=== PATIENT | male | born 1945 | race Caucasian/White ===

== ENCOUNTER 2024-02-20 01:49 | Inpatient (IN) ==
--- NOTE | 2024-02-20 01:55 | Emergency Department Note ---
Impression & Plan Dehydration, Elevated troponin, Influenza ED Provider Note CHIEF COMPLAINT: Weakness, sore throat HISTORY OF PRESENT ILLNESS: This 78-year-old patient presents to the emergency department via EMS from home after calling for a lift assist. The patient reports he slid out of bed approximately 2 days ago, and has been laying on the floor since. He reports he has had no water, food, or medications in that timeframe. He states he feels weak in his upper and lower extremities. He reports no recent illness, abdominal pain, nausea, vomiting, dysuria, or constipation. He does state he has had some slight diarrhea recently. He states he also has a sore throat. The patient arrived with a soaked depends, tachycardia. He is also febrile upon arrival. REVIEW OF SYSTEMS: A review of systems was performed with positives and pertinent negatives listed in the history of present illness. All other systems were reviewed and are negative. ALLERGIES: See below MEDICATIONS: See below PMH: See below PHYSICAL EXAM: VITALS: Vitals are noted on the nurse's note and reviewed by myself. Vital signs stable. GENERAL: 78-year-old male, in no acute distress, nondiaphoretic, well-developed well-nourished. SKIN: Areas of ecchymosis, on the upper and lower extremities. Bilateral shoulder with erythematous rash noted. No cellulitis. HEAD: Normocephalic atraumatic. No edema noted. EARS: External auditory canals clear, tympanic membranes pearly thayer without erythema or effusion bilaterally. EYES: Pupils equal round and reactive to light and accommodation. Conjunctivae without injection, sclerae without icterus. Extraocular movements intact. NOSE: Patent, turbinates without inflammation or discharge. No sinus tenderness. No septal hematoma. MOUTH: Mucous membranes dry. No tonsillar hypertrophy. Pharynx without erythema or exudate. Uvula midline. Airway patent. Tongue does not deviate. NECK: Supple without nuchal rigidity. No lymphadenopathy. Cervical spine is nontender. No JVD. HEART: Tachycardia with regular rhythm without murmurs gallops or rubs. LUNGS: Diminished upper lobes with coarse lung sounds in bases bilaterally. ABDOMEN: Positive bowel sounds x 4. Soft, nontender, without masses or organomegaly. Baxter sign negative. No guarding or rebound tenderness. MUSCULOSKELETAL: Muscle atrophy in all extremities, erythema, or edema noted. Full range of motion without joint tenderness in all extremities. No tenderness to palpation. Normal gait. Strength 5/5 throughout. NEURO: Patient was alert and oriented to person place and time. No focal neurological deficits. MEDICAL DECISION MAKING: Patient is a 78-year-old male who arrives from home via EMS for evaluation of the above-stated complaint. Upon initial evaluation, the patient is tachycardic and febrile. A sepsis workup was obtained. Fluid resuscitation was administered. CBC shows no leukocytosis, with a stable hemoglobin and hematocrit. CMP shows hypokalemia 3.2, which was replaced with 40 mEq p.o. potassium, elevated anion gap at 18, elevated CK of 549, lactate 2.2, and troponin 68.2. EKG shows NSR at a rate of 92bpm with no ST elevation, or concerning signs of ischemia. No previous for comparison. Urinalysis is negative for infection. The patient was administered a second liter bolus of saline for hydration with resolution of tachycardia to 78 bpm. Reflex lactate 1.1. Repeat troponin 84.3. Patient is positive for influenza. Chest x-ray shows peribronchial cuffing, with no other significant findings. CT imaging of the head was obtained due to the patient's poor of sliding out of bed which shows pansinusitis with chronic mastoiditis, as well as possible inflammatory or infectious process. Pt has no edema or concerning signs of trauma to this region. Case management was contacted for admission to the hospitalist service for elevated troponin. The patient was accepted by Dr. Castro for admission. Please refer to his documentation for further patient workup and care. DIFFERENTIAL DIAGNOSIS: Infection, dehydration, metabolic abnormality, hypo/hyperglycemia, electrolyte disturbance, anemia, hypoxia, cardiac sources, intracerebral event, toxicologic, neurologic, as well as other pathologies. 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 Patient was placed on the window shade installer. Patient was noted to be in NSR at an initial rate of 93 bpm. The patient's case was discussed with Dr. Gipson, who agreed with my evaluation and treatment plan. The chart was completed utilizing [employer] Speech voice recognition software. Grammatical errors, random word insertions, pronoun errors, and incomplete sentences are an occasional consequence of this system due to software limitations, ambient noise, and hardware issues. Any formal questions or concerns about the content, text, or information contained within the body of this dictation should be directly addressed to the physician for clarification. Past Med/Surg History Problem List (Updated 02/20/24 @ 05:57 by JACKY Merida) Influenza (Acute) Elevated troponin (Acute) Dehydration (Acute) Social History Smoking Status: Current every day smoker Feels Safe at Home: Yes Results & Data (ED) Vital Signs Vital Signs - 24 hr 02/20/24 01:58 02/20/24 02:03 02/20/24 02:03 Temperature 37.6 C H Temperature Source Oral Pulse Rate 93 H 93 H Pulse Rate [Apical] Pulse Rate from SpO2 Sensor Pulse Rhythm Regular Pulse Rhythm [Apical] Pulse Strength Normal Pulse Strength [Apical] Respiratory Rate 18 Respiratory Effort / Characteristics Non-Labored Spontaneous Respiratory Depth Normal Respiratory Pattern Regular Blood Pressure 146/85 H Blood Pressure [Right Arm] Blood Pressure Mean 105 Blood Pressure Mean [Right Arm] Blood Pressure Position Semi-fowlers Blood Pressure Position [Right Arm] Pulse Oximetry 98 98 Oxygen Delivery Method Room Air Room Air Sepsis Recent Fever Within 48 Hours No Sepsis New/Unexplained Change in Mental Status No Sepsis Action Taken by Nursing No Action Required 02/20/24 02:03 02/20/24 02:03 02/20/24 02:09 Temperature 37.6 C H Temperature Source Oral Pulse Rate 93 H 95 H Pulse Rate [Apical] 88 Pulse Rate from SpO2 Sensor 96 H Pulse Rhythm Regular Pulse Rhythm [Apical] Regular Pulse Strength Pulse Strength [Apical] Normal Respiratory Rate 18 18 23 Respiratory Effort / Characteristics Non-Labored Spontaneous Respiratory Depth Normal Respiratory Pattern Regular Blood Pressure 183/102 H Blood Pressure [Right Arm] 127/86 Blood Pressure Mean 129 Blood Pressure Mean [Right Arm] 99 Blood Pressure Position Blood Pressure Position [Right Arm] Semi-fowlers Pulse Oximetry 98 98 96 Oxygen Delivery Method Room Air Room Air Room Air Sepsis Recent Fever Within 48 Hours Sepsis New/Unexplained Change in Mental Status Sepsis Action Taken by Nursing 02/20/24 02:15 02/20/24 02:30 02/20/24 03:06 Temperature Temperature Source Pulse Rate 96 H 91 H 90 Pulse Rate [Apical] Pulse Rate from SpO2 Sensor 94 H 92 H 86 Pulse Rhythm Pulse Rhythm [Apical] Pulse Strength Pulse Strength [Apical] Respiratory Rate 24 18 24 Respiratory Effort / Characteristics Respiratory Depth Respiratory Pattern Blood Pressure Blood Pressure [Right Arm] Blood Pressure Mean Blood Pressure Mean [Right Arm] Blood Pressure Position Blood Pressure Position [Right Arm] Pulse Oximetry 95 94 96 Oxygen Delivery Method Room Air Room Air Room Air Sepsis Recent Fever Within 48 Hours Sepsis New/Unexplained Change in Mental Status Sepsis Action Taken by Nursing 02/20/24 03:18 02/20/24 03:26 02/20/24 03:49 Temperature Temperature Source Pulse Rate 90 84 90 Pulse Rate [Apical] Pulse Rate from SpO2 Sensor 90 Pulse Rhythm Pulse Rhythm [Apical] Pulse Strength Pulse Strength [Apical] Respiratory Rate 17 26 H 18 Respiratory Effort / Characteristics Respiratory Depth Respiratory Pattern Blood Pressure 165/88 H 139/76 Blood Pressure [Right Arm] Blood Pressure Mean 114 111 Blood Pressure Mean [Right Arm] Blood Pressure Position Blood Pressure Position [Right Arm] Pulse Oximetry 99 96 99 Oxygen Delivery Method Room Air Room Air Room Air Sepsis Recent Fever Within 48 Hours Sepsis New/Unexplained Change in Mental Status Sepsis Action Taken by Nursing 02/20/24 04:00 02/20/24 04:00 02/20/24 04:15 Temperature Temperature Source Pulse Rate 95 H 76 Pulse Rate [Apical] 77 Pulse Rate from SpO2 Sensor 84 Pulse Rhythm Pulse Rhythm [Apical] Pulse Strength Pulse Strength [Apical] Respiratory Rate 22 20 22 Respiratory Effort / Characteristics Non-Labored Spontaneous Respiratory Depth Normal Respiratory Pattern Regular Blood Pressure 154/78 H 148/71 H Blood Pressure [Right Arm] 154/78 H Blood Pressure Mean 103 108 Blood Pressure Mean [Right Arm] 103 Blood Pressure Position Blood Pressure Position [Right Arm] Pulse Oximetry 96 98 96 Oxygen Delivery Method Room Air Room Air Room Air Sepsis Recent Fever Within 48 Hours Sepsis New/Unexplained Change in Mental Status Sepsis Action Taken by Nursing 02/20/24 04:15 02/20/24 04:30 02/20/24 04:45 Temperature Temperature Source Pulse Rate 74 Pulse Rate [Apical] 79 Pulse Rate from SpO2 Sensor 73 Pulse Rhythm Pulse Rhythm [Apical] Pulse Strength Pulse Strength [Apical] Respiratory Rate 21 20 Respiratory Effort / Characteristics Non-Labored Spontaneous Respiratory Depth Normal Respiratory Pattern Regular Blood Pressure 148/71 H 141/72 H Blood Pressure [Right Arm] 131/71 Blood Pressure Mean 108 95 Blood Pressure Mean [Right Arm] 91 Blood Pressure Position Blood Pressure Position [Right Arm] Pulse Oximetry 95 98 Oxygen Delivery Method Room Air Room Air Sepsis Recent Fever Within 48 Hours Sepsis New/Unexplained Change in Mental Status Sepsis Action Taken by Nursing 02/20/24 04:45 Temperature Temperature Source Pulse Rate 78 Pulse Rate [Apical] Pulse Rate from SpO2 Sensor Pulse Rhythm Pulse Rhythm [Apical] Pulse Strength Pulse Strength [Apical] Respiratory Rate 18 Respiratory Effort / Characteristics Respiratory Depth Respiratory Pattern Blood Pressure 131/71 Blood Pressure [Right Arm] Blood Pressure Mean 103 Blood Pressure Mean [Right Arm] Blood Pressure Position Blood Pressure Position [Right Arm] Pulse Oximetry 96 Oxygen Delivery Method Room Air Sepsis Recent Fever Within 48 Hours Sepsis New/Unexplained Change in Mental Status Sepsis Action Taken by [place] Medications Current Medication List: was personally reviewed by me Laboratory Data Attestation: I reviewed the patient's lab results. 02/20/24 02:12 02/20/24 02:12 Lab Results 02/20/24 02/20/24 02/20/24 Range/Units 02:08 02:12 02:21 WBC 8.18 (4.8-10.8) K/ul RBC 5.12 (4.70-6.10) M/uL Hgb 14.9 (14.0-18.0) g/dl Hct 44.4 (42.0-52.0) % MCV 86.7 (80.0-100.0) fL MCH 29.1 (25.0-34.0) pg MCHC 33.6 (32.0-36.0) g/dL RDW Std Deviation 41.7 (36.4-46.3) fL RDW Coeff of Neftali 13.2 (11.5-14.5) % Plt Count 133 (130-400) K/uL MPV 9.1 L (9.4-12.4) fL Immature Gran % (Auto) 0.4 % Neut % (Auto) 83.6 % Lymph % (Auto) 8.6 % [place] % (Auto) 7.3 % Eos % (Auto) 0.0 % Baso % (Auto) 0.1 % Neut # (Auto) 6.84 H (1.40-6.50) K/uL Lymph # (Auto) 0.70 L (1.20-3.40) K/uL [place] # (Auto) 0.60 H (0.11-0.59) K/uL Eos # (Auto) 0.00 (0.00-0.50) K/uL Baso # (Auto) 0.01 (0.00-0.20) K/uL Immature Gran # (Auto) 0.03 (0.01-0.20) K/uL Sodium 136 (136-145) mmol/L Potassium 3.2 L (3.5-5.1) mmol/L Chloride 97 L (98-107) mmol/L Carbon Dioxide 21 (21-32) mmol/L Anion Gap 18 H (3-11) BUN 20 (6-23) mg/dl Creatinine 0.94 (0.6-1.4) mg/dl Est Cr Clr Drug Dosing 54.1 ml/min eGFR 83.49 BUN/Creatinine Ratio 21.3 H (10-20) Glucose 93 (70-99(Fasting)) mg/dl Lactate 2.2 H* (0.4-2.0) mmol/L Calcium 8.9 (8.6-10.3) mg/dl Magnesium 1.8 (1.7-2.4) mg/dl Total Bilirubin 0.5 (0.2-1.0) mg/dl Direct Bilirubin 0.2 (0-0.2) mg/dl AST 48 H (13-39) U/L ALT 20 (7-52) U/L Alkaline Phosphatase 68 (34-104) U/L Total Creatine Kinase 549 H (30-223) U/L Troponin I High Sens 68.2 H* (0-20) pg/ml Total Protein 8.2 (6.0-8.3) gm/dl Albumin 3.7 (3.4-5.0) gm/dl Procalcitonin 0.10 (0-0.5) ng/ml Urine Color Yellow Urine Appearance Clear (Clear) Urine pH 5.0 (4.5-7.5) Ur Specific [place] 1.022 (1.000-1.030) Urine Protein 1+ H (Negative) Urine Glucose (UA) Negative (Negative) Urine Ketones 2+ H (Negative) Urine Blood Negative (Negative) Urine Nitrite Negative (Negative) Urine Bilirubin Negative (Negative) Urine Urobilinogen Negative (Negative) Ur Leukocyte Esterase Negative (Negative) Urine WBC (Auto) 0-5 (0-5) /hpf Urine RBC (Auto) 0-2 (0-2) /hpf U Hyaline Cast (Auto) 6-10 H (0-2) /lpf U Epithel Cells (Auto) 0-2 (0-2) /hpf Urine Bacteria (Auto) None Seen (None Seen) Adenovirus (PCR) Not Detected (NotDetected) B. pertussis DNA (PCR) Not Detected (NotDetected) B.parapertussis DNA PCR Not Detected (NotDetected) C. pneumoniae DNA (PCR) Not Detected (NotDetected) Coronavirus OC43 (PCR) Not Detected (NotDetected) Coronavirus HKU1 (PCR) Not Detected (NotDetected) Coronavirus 229E (PCR) Not Detected (NotDetected) SARS-CoV-2 (PCR) Not Detected (NotDetected) Coronavirus NL63 (PCR) Not Detected (NotDetected) Human Metapneumovir PCR Not Detected (NotDetected) Influenza A (H3) PCR DETECTED A (NotDetected) Influenza Type B (PCR) Not Detected (NotDetected) M. pneumoniae (PCR) Not Detected (NotDetected) Parainfluenza 1 (PCR) Not Detected (NotDetected) Parainfluenza 2 (PCR) Not Detected (NotDetected) Parainfluenza 3 (PCR) Not Detected (NotDetected) Parainfluenza 4 (PCR) Not Detected (NotDetected) RSV (PCR) Not Detected (NotDetected) Entero/Rhino (PCR) Not Detected (NotDetected) Group A Strep (PCR) NOT DETECTED (NotDetected) 02/20/24 Range/Units 04:17 WBC (4.8-10.8) K/ul RBC (4.70-6.10) M/uL Hgb (14.0-18.0) g/dl Hct (42.0-52.0) % MCV (80.0-100.0) fL MCH (25.0-34.0) pg MCHC (32.0-36.0) g/dL RDW Std Deviation (36.4-46.3) fL RDW Coeff of Neftali (11.5-14.5) % Plt Count (130-400) K/uL MPV (9.4-12.4) fL Immature Gran % (Auto) % Neut % (Auto) % Lymph % (Auto) % [place] % (Auto) % Eos % (Auto) % Baso % (Auto) % Neut # (Auto) (1.40-6.50) K/uL Lymph # (Auto) (1.20-3.40) K/uL [place] # (Auto) (0.11-0.59) K/uL Eos # (Auto) (0.00-0.50) K/uL Baso # (Auto) (0.00-0.20) K/uL Immature Gran # (Auto) (0.01-0.20) K/uL Sodium (136-145) mmol/L Potassium (3.5-5.1) mmol/L Chloride (98-107) mmol/L Carbon Dioxide (21-32) mmol/L Anion Gap (3-11) BUN (6-23) mg/dl Creatinine (0.6-1.4) mg/dl Est Cr Clr Drug Dosing ml/min eGFR BUN/Creatinine Ratio (10-20) Glucose (70-99(Fasting)) mg/dl Lactate 1.1 (0.4-2.0) mmol/L Calcium (8.6-10.3) mg/dl Magnesium (1.7-2.4) mg/dl Total Bilirubin (0.2-1.0) mg/dl Direct Bilirubin (0-0.2) mg/dl AST (13-39) U/L ALT (7-52) U/L Alkaline Phosphatase (34-104) U/L Total Creatine Kinase (30-223) U/L Troponin I High Sens 84.3 H* D (0-20) pg/ml Total Protein (6.0-8.3) gm/dl Albumin (3.4-5.0) gm/dl Procalcitonin (0-0.5) ng/ml Urine Color Urine Appearance (Clear) Urine pH (4.5-7.5) Ur Specific [place] (1.000-1.030) Urine Protein (Negative) Urine Glucose (UA) (Negative) Urine Ketones (Negative) Urine Blood (Negative) Urine Nitrite (Negative) Urine Bilirubin (Negative) Urine Urobilinogen (Negative) Ur Leukocyte Esterase (Negative) Urine WBC (Auto) (0-5) /hpf Urine RBC (Auto) (0-2) /hpf U Hyaline Cast (Auto) (0-2) /lpf U Epithel Cells (Auto) (0-2) /hpf Urine Bacteria (Auto) (None Seen) Adenovirus (PCR) (NotDetected) B. pertussis DNA (PCR) (NotDetected) B.parapertussis DNA PCR (NotDetected) C. pneumoniae DNA (PCR) (NotDetected) Coronavirus OC43 (PCR) (NotDetected) Coronavirus HKU1 (PCR) (NotDetected) Coronavirus 229E (PCR) (NotDetected) SARS-CoV-2 (PCR) (NotDetected) Coronavirus NL63 (PCR) (NotDetected) Human Metapneumovir PCR (NotDetected) Influenza A (H3) PCR (NotDetected) Influenza Type B (PCR) (NotDetected) M. pneumoniae (PCR) (NotDetected) Parainfluenza 1 (PCR) (NotDetected) Parainfluenza 2 (PCR) (NotDetected) Parainfluenza 3 (PCR) (NotDetected) Parainfluenza 4 (PCR) (NotDetected) RSV (PCR) (NotDetected) Entero/Rhino (PCR) (NotDetected) Group A Strep (PCR) (NotDetected) Administered Medications Discontinued Medications Acetaminophen (Acetaminophen 500 Mg Tab) 1,000 mg PO NOW STA Stop: 02/20/24 02:40 Last Admin: 02/20/24 03:26 Dose: 1,000 mg Documented By: PHILLIP Sodium Chloride (Nss) 1,000 mls @ 999 mls/hr IV .Q1H1M ESTEFANI Stop: 02/20/24 03:15 Last Infusion: 02/20/24 03:27 Dose: Infused Documented By: Admin: 02/20/24 02:25 Dose: 999 mls/hr Documented By: NATY Sodium Chloride (Nss) 1,000 mls @ 999 mls/hr IV .Q1H1M ONE Stop: 02/20/24 03:48 Last Infusion: 02/20/24 04:30 Dose: Infused Documented By: Admin: 02/20/24 03:30 Dose: 999 mls/hr Documented By: PHILLIP Sodium Chloride (Nss) 800 mls @ 999 mls/hr IV .Q49M ONE Stop: 02/20/24 05:11 Last Admin: 02/20/24 04:26 Dose: Not Given Documented By: PHILLIP Potassium Chloride (Potassium Chloride Crtab 20 Meq Tabcr) 40 meq PO NOW STA Stop: 02/20/24 02:54 Last Admin: 02/20/24 03:27 Dose: 40 meq Documented By: PHILLIP Imaging Data Attestation: I personally reviewed and interpreted this imaging study as follows: Radiologist's Impression: Chest X-Ray 02/20/24 02:02 EXAM: XR chest 1V portable CLINICAL HISTORY: SEPSIS JMF TECHNIQUE: An X-ray image of the chest is obtained in AP projection. COMPARISON: No prior studies are available for comparison. FINDINGS: Pulmonary Parenchyma: Lungs show prominent perihilar bronchovascular markings with peribronchial cuffing. No evidence of consolidation, collapse, or focal opacities. No pulmonary nodules are identified. No evidence of pleural effusion or pleural thickening. Heart and Mediastinum: Heart size and shape are normal. No mediastinal widening or masses. No hilar or mediastinal lymphadenopathy. Bony Thorax: Bony thorax appears intact without fractures or deformities. Soft Tissues: Soft tissues overlying the chest wall are unremarkable. IMPRESSION: Bilateral perihilar prominent bronchovascular markings with peribronchial cuffing are non-specific findings; clinical correlation is advised. Electronically signed by Isaac Farrell 02-20-2024 03:[address] 02/20/24 02:06 EXAM: CT head/brain wo con CLINICAL HISTORY: Weakness, slid out of bed onto the floor, and laid on the floor for two days, pt states he did not hit his head. TECHNIQUE: An axial non-contrast CT scan of the brain was performed from the skull base to the high parietal region. One of the following dose reduction techniques was utilized for this exam: Automated exposure control, adjustment of the mA and/or kV according to patient size, and use of iterative reconstruction. DLP: 1674 mGy-cm, CTDI 103.2 mGy. COMPARISON: None. FINDINGS: Brain Parenchyma: There are a few tiny ill-defined [id number] areas noted in the subcortical and deep white matter bilaterally, suggestive of microvascular ischemic changes. Normal attenuation of the cerebral hemispheres, cerebellum, and brainstem. No evidence of acute infarct, hemorrhage, or mass effect. Ventricular System: The ventricular system, cortical sulci, and basal cisterns are prominent and consistent with senile changes. No evidence of subarachnoid hemorrhage or extra-axial fluid collections. Cerebellum and Brainstem: Normal size and signal. No masses, lesions, or areas of abnormal signal. Orbits: Normal appearance of the globes, optic nerves, and extraocular muscles. No evidence of orbital masses. Sinuses: Mild mucosal thickening in the frontal and ethmoid sinuses. Right maxillary mucosal sinus cysts. Patchy opacification of the mastoid air cells. Skull: No evidence of definite acute fracture. Additional: A fluid collection is seen along the lateral aspect of the right masseter muscle, measuring 46 x 8 mm in the right hydro station supervisor space continuing posteriorly with the parotid space. Mild surrounding fat stranding is also seen. Imaging appearances are suggestive of an ongoing infective/inflammatory process. IMPRESSION: 1. No evidence of any acute intracranial event. 2. Age-related involutional and microvascular ischemic changes. 3. Soft tissue thickening with stranding and mild fluid are seen in the right masseter and right parotid space. Need clinical correlation and correlate with impact of trauma. 4. Further evaluation with a contrast-enhanced MRI brain can be considered if clinically indicated. 5. 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
[2024-02-20] MEDS: SODIUM CHLORIDE 0.9% 1,000 ML IV SCH ×2 (02:25→13:08)
[2024-02-20 02:45] LABS: Albumin Level 3.7 gm/dl (3.4-5.0); BUN Creatinine Ratio 21.3 (10-20); Bilirubin Direct 0.2 mg/dl (0-0.2); Bilirubin,Total 0.5 mg/dl (0.2-1.0); Calcium 8.9 mg/dl (8.6-10.3); Creatinine Clr Calc Pharmacy 54.1 ml/min; Magnesium 1.8 mg/dl (1.7-2.4); Potassium 3.2 mmol/L (3.5-5.1); Total Protein 8.2 gm/dl (6.0-8.3)
[2024-02-20 02:51] LABS: Basophils # (auto) 0.01 K/uL (0.00-0.20); Basophils % (auto) 0.1 %; Hematocrit (blood only) 44.4 % (42.0-52.0); Hemoglobin 14.9 g/dl (14.0-18.0); Immature Granulocytes # (auto) 0.03 K/uL (0.01-0.20); Immature Granulocytes % (auto) 0.4 %; Lymphocytes % (auto) 8.6 %; Mean Corpuscular Hemoglobin 29.1 pg (25.0-34.0); Mean Corpuscular Hgb Conc 33.6 g/dL (32.0-36.0); Mean Corpuscular Volume 86.7 fL (80.0-100.0); Mean Platelet Volume 9.1 fL (9.4-12.4); Monocytes % (auto) 7.3 %; Neutrophils # (auto) 6.84 K/uL (1.40-6.50); Neutrophils % (auto) 83.6 %; Platelet Count 133 K/uL (130-400); RDW Coefficient of Variation 13.2 % (11.5-14.5); RDW Standard Deviation 41.7 fL (36.4-46.3); Red Blood Count 5.12 M/uL (4.70-6.10); White Blood Count 8.18 K/ul (4.8-10.8)
[2024-02-20 02:52] LABS: Troponin I High Sensitivity 68.2 pg/ml (0-20)
[2024-02-20 03:00] LABS: Appearance Urine Clear (Clear); Bacteria Urine Automated None Seen (None Seen); Bilirubin Urine Negative (Negative); Blood Urine Negative (Negative); Color Urine Yellow; Epithelial Cell Urine Auto 0-2 /hpf (0-2); Glucose Urine UA Negative (Negative); Ketones Urine 2+ (Negative); Leukocyte Esterase Urine Negative (Negative); Nitrite Urine Negative (Negative); Protein Urine 1+ (Negative); RBC Urine Automated 0-2 /hpf (0-2); Specific Gravity Urine 1.022 (1.000-1.030); Urobilinogen Urine Negative (Negative); WBC Urine Automated 0-5 /hpf (0-5)
[2024-02-20] MEDS: ACETAMINOPHEN 500 MG TAB PO STA (03:26)
[2024-02-20] MEDS: POTASSIUM CHLORIDE CRTAB 20 MEQ TABCR PO STA (03:27)
[2024-02-20] MEDS: SODIUM CHLORIDE 0.9% 1,000 ML IV ONE (03:30)
--- NOTE | 2024-02-20 03:31 | XRay Report ---
EXAM: XR chest 1V portable CLINICAL HISTORY: SEPSIS JMF TECHNIQUE: An X-ray image of the chest is obtained in AP projection. COMPARISON: No prior studies are available for comparison. FINDINGS: Pulmonary Parenchyma: Lungs show prominent perihilar bronchovascular markings with peribronchial cuffing. No evidence of consolidation, collapse, or focal opacities. No pulmonary nodules are identified. No evidence of pleural effusion or pleural thickening. Heart and Mediastinum: Heart size and shape are normal. No mediastinal widening or masses. No hilar or mediastinal lymphadenopathy. Bony Thorax: Bony thorax appears intact without fractures or deformities. Soft Tissues: Soft tissues overlying the chest wall are unremarkable. IMPRESSION: Bilateral perihilar prominent bronchovascular markings with peribronchial cuffing are non-specific findings; clinical correlation is advised. Electronically signed by Isaac Farrell 02-20-2024 03:30 AM
[2024-02-20 03:32] LABS: Adenovirus PCR Not Detected (NotDetected); Bordetella parapertussis PCR Not Detected (NotDetected); Bordetella pertussis PCR Not Detected (NotDetected); Chlamydia pneumoniae PCR Not Detected (NotDetected); Coronavirus 229E PCR Not Detected (NotDetected); Coronavirus CoV-2 (COVID19)PCR Not Detected (NotDetected); Coronavirus HKU1 PCR Not Detected (NotDetected); Coronavirus NL63 PCR Not Detected (NotDetected); Coronavirus OC43PCR Not Detected (NotDetected); Human Metapneumovirus PCR Not Detected (NotDetected); Influenza A (H3) PCR DETECTED (NotDetected); Influenza B PCR Not Detected (NotDetected); Mycoplasma pneumoniae PCR Not Detected (NotDetected); Parainfluenza Virus 1 PCR Not Detected (NotDetected); Parainfluenza Virus 2 PCR Not Detected (NotDetected); Parainfluenza Virus 3 PCR Not Detected (NotDetected); Parainfluenza Virus 4 PCR Not Detected (NotDetected); Respiratory Syncytial VirusPCR Not Detected (NotDetected); Rhinovirus/Enterovirus PCR Not Detected (NotDetected)
[2024-02-20] MEDS: SODIUM CHLORIDE 0.9% 800 ML IV ONE (04:26)
--- NOTE | 2024-02-20 05:23 | CT Scan Report ---
EXAM: CT head/brain wo con CLINICAL HISTORY: Weakness, slid out of bed onto the floor, and laid on the floor for two days, pt states he did not hit his head. TECHNIQUE: An axial non-contrast CT scan of the brain was performed from the skull base to the high parietal region. One of the following dose reduction techniques was utilized for this exam: Automated exposure control, adjustment of the mA and/or kV according to patient size, and use of iterative reconstruction. DLP: 1674 mGy-cm, CTDI 103.2 mGy. COMPARISON: None. FINDINGS: Brain Parenchyma: There are a few tiny ill-defined [id number] areas noted in the subcortical and deep white matter bilaterally, suggestive of microvascular ischemic changes. Normal attenuation of the cerebral hemispheres, cerebellum, and brainstem. No evidence of acute infarct, hemorrhage, or mass effect. Ventricular System: The ventricular system, cortical sulci, and basal cisterns are prominent and consistent with senile changes. No evidence of subarachnoid hemorrhage or extra-axial fluid collections. Cerebellum and Brainstem: Normal size and signal. No masses, lesions, or areas of abnormal signal. Orbits: Normal appearance of the globes, optic nerves, and extraocular muscles. No evidence of orbital masses. Sinuses: Mild mucosal thickening in the frontal and ethmoid sinuses. Right maxillary mucosal sinus cysts. Patchy opacification of the mastoid air cells. Skull: No evidence of definite acute fracture. Additional: A fluid collection is seen along the lateral aspect of the right masseter muscle, measuring 46 x 8 mm in the right parachute packer space continuing posteriorly with the parotid space. Mild surrounding fat stranding is also seen. Imaging appearances are suggestive of an ongoing infective/inflammatory process. IMPRESSION: 1. No evidence of any acute intracranial event. 2. Age-related involutional and microvascular ischemic changes. 3. Soft tissue thickening with stranding and mild fluid are seen in the right masseter and right parotid space. Need clinical correlation and correlate with impact of trauma. 4. Further evaluation with a contrast-enhanced MRI brain can be considered if clinically indicated. 5. 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
--- NOTE | 2024-02-20 08:50 | History & Physical Report ---
Date of Service February 20, 2024 Assessment & Plan (1) Influenza: Plan: 78-year-old male unassigned Patient moved from [place] with past med history significant for hypertension, diabetes, depression, ongoing tobacco use, history of heavy alcohol use and no drinking since last 6 months as per patient, who lives alone at home comes in because of fall and found to have flu positive. Patient was feeling weak and fatigued. He slipped from the bed and fell down and he could not get up. He thinks he laid on the floor for 1-1/2-day. Finally was able to call 911 and was brought in here. Alert and oriented. Hard of hearing. Denies any headache. No runny nose or sore throat. Has chronic cough from smoking. Denies any fevers. Denies any chest pain or shortness of breath. No nausea. No abdominal pain. When he was laying on the floor was not able to take his medications and was also dehydrated. X-ray had some loose stools. Micturating okay. Currently hemodynamics are okay. In the ER received fluids, Tylenol and potassium supplement. Influenza Came with fall and weakness Started on Tamiflu IV fluids Droplet precautions Close monitor Elevated troponin Initial troponin 68 and repeat is 84 Denies any chest pain or shortness of breath Abnormal EKG. No old EKG to compare No cardiac history as per patient Will follow serial cardiac enzymes and echo Will consult cardiac for further recommendations History of hypertension Continue home metoprolol tartrate and triamterene/hydrochlorothiazide and potassium supplement. Will monitor Depression On Zoloft Diabetes Seems takes long-acting insulin 20 units nightly For now will place on insulin sliding scale and monitor Follow HbA1c levels Needs follow-up with PCP Disposition Med/telemetry Full code History of Present Illness Chief Complaint: Status post fall and flu positive Primary Care Provider: NO PCP 78-year-old male unassigned Patient moved from [place] with past med history significant for hypertension, diabetes, depression, ongoing tobacco use, history of heavy alcohol use and no drinking since last 6 months as per patient, who lives alone at home comes in because of fall and found to have flu positive. Patient was feeling weak and fatigued. He slipped from the bed and fell down and he could not get up. He thinks he laid on the floor for 1-1/2-day. Finally was able to call 911 and was brought in here. Alert and oriented. Hard of hearing. Denies any headache. No runny nose or sore throat. Has chronic cough from smoking. Denies any fevers. Denies any chest pain or shortness of breath. No nausea. No abdominal pain. When he was laying on the floor was not able to take his medications and was also dehydrated. X-ray had some loose stools. Micturating okay. Currently hemodynamics are okay. In the ER received fluids, Tylenol and potassium supplement. Past medical history. As mentioned above Past surgical history. Right big toe amputation. Social history. Smokes 3/4 pack a day for last 20 years. Used to drink heavily in the past last drink 6 months ago as per patient. Family history. Denies any family history. Home Medications Medication Instructions Recorded Confirmed Type insulin glargine 100 unit/mL (3 20 unit subcut UD 02/20/24 02/20/24 History mL) subcutaneous pen (Basaglar KwikPen U-100 Insulin) metoprolol tartrate 100 mg tablet 100 mg PO BID 02/20/24 02/20/24 History potassium chloride 20 mEq 20 meq PO BID 02/20/24 02/20/24 History tablet,extended release(part/cryst) sertraline 50 mg tablet 50 mg PO BID 02/20/24 02/20/24 History thiamine HCl (vitamin B1) 100 mg 100 mg PO DAILY 02/20/24 02/20/24 History tablet triamterene 75 1 tab PO DAILY 02/20/24 02/20/24 History mg-hydrochlorothiazide 50 mg tablet Past Med/Surg History Problem List (Updated 02/20/24 @ 05:57 by JACKY Merida) Influenza (Acute) Elevated troponin (Acute) Dehydration (Acute) Social History Smoking Status: Current every day smoker Feels Safe at Home: Yes Review of Systems Review of Systems: All systems reviewed & are unremarkable except as noted in HPI & below Physical Exam Physical Exam: General- Not in distress Head- atraumatic Eyes- PERRL. ENT- oropharynx clear Neck- supple, no JVD. Lungs- clear to auscultation no wheezing or crackles Heart- regular rhythm; no murmur, no gallop. Abdomen- normal bowel sounds, soft, nontender, no distension Extremities- no pretibial edema, no erythema seen Neuro- alert, oriented ; hard of hearing, PERRL, no facial palsy; no dysarthria; moves extremities Results & Data Results & Data Vital Signs (Past 12 Hours) Vital Signs Temp Pulse Pulse Resp BP BP Pulse Ox 02/20/24 08:00 72 18 134/69 97 02/20/24 06:15 70 22 127/75 94 02/20/24 06:00 77 20 140/75 94 02/20/24 05:55 72 02/20/24 04:45 78 18 131/71 96 02/20/24 04:45 79 20 131/71 98 02/20/24 04:30 74 21 141/72 H 95 02/20/24 04:15 148/71 H 02/20/24 04:15 76 22 148/71 H 96 02/20/24 04:00 95 H 20 154/78 H 98 02/20/24 04:00 77 22 154/78 H 96 02/20/24 03:49 90 18 139/76 99 02/20/24 03:26 84 26 H 165/88 H 96 02/20/24 03:18 90 17 99 02/20/24 03:06 90 24 96 02/20/24 02:30 91 H 18 94 02/20/24 02:15 96 H 24 95 02/20/24 02:09 95 H 23 183/102 H 96 02/20/24 02:03 93 H 18 98 02/20/24 02:03 37.6 C H 88 18 127/86 98 02/20/24 02:03 98 02/20/24 02:03 37.6 C H 93 H 18 146/85 H 98 02/20/24 01:58 93 H O2 Del Method 02/20/24 08:00 Room Air 02/20/24 06:15 Room Air 02/20/24 06:00 Room Air 02/20/24 05:55 02/20/24 04:45 Room Air 02/20/24 04:45 Room Air 02/20/24 04:30 Room Air 02/20/24 04:15 02/20/24 04:15 Room Air 02/20/24 04:00 Room Air 02/20/24 04:00 Room Air 02/20/24 03:49 Room Air 02/20/24 03:26 Room Air 02/20/24 03:18 Room Air 02/20/24 03:06 Room Air 02/20/24 02:30 Room Air 02/20/24 02:15 Room Air 02/20/24 02:09 Room Air 02/20/24 02:03 Room Air 02/20/24 02:03 Room Air 02/20/24 02:03 Room Air 02/20/24 02:03 Room Air 02/20/24 01:58 Diagnostic Findings Laboratory Results WBC 8.18 K/ul (4.8-10.8) 02/20/24 02:12 RBC 5.12 M/uL (4.70-6.10) 02/20/24 02:12 Hgb 14.9 g/dl (14.0-18.0) 02/20/24 02:12 Hct 44.4 % (42.0-52.0) 02/20/24 02:12 MCV 86.7 fL (80.0-100.0) 02/20/24 02:12 MCH 29.1 pg (25.0-34.0) 02/20/24 02:12 MCHC 33.6 g/dL (32.0-36.0) 02/20/24 02:12 RDW Std Deviation 41.7 fL (36.4-46.3) 02/20/24 02:12 RDW Coeff of Neftali 13.2 % (11.5-14.5) 02/20/24 02:12 Plt Count 133 K/uL (130-400) 02/20/24 02:12 MPV 9.1 fL (9.4-12.4) L 02/20/24 02:12 Immature Gran % (Auto) 0.4 % 02/20/24 02:12 Neut % (Auto) 83.6 % 02/20/24 02:12 Lymph % (Auto) 8.6 % 02/20/24 02:12 [place] % (Auto) 7.3 % 02/20/24 02:12 Eos % (Auto) 0.0 % 02/20/24 02:12 Baso % (Auto) 0.1 % 02/20/24 02:12 Neut # (Auto) 6.84 K/uL (1.40-6.50) H 02/20/24 02:12 Lymph # (Auto) 0.70 K/uL (1.20-3.40) L 02/20/24 02:12 [place] # (Auto) 0.60 K/uL (0.11-0.59) H 02/20/24 02:12 Eos # (Auto) 0.00 K/uL (0.00-0.50) 02/20/24 02:12 Baso # (Auto) 0.01 K/uL (0.00-0.20) 02/20/24 02:12 Immature Gran # (Auto) 0.03 K/uL (0.01-0.20) 02/20/24 02:12 Sodium 136 mmol/L (136-145) 02/20/24 02:12 Potassium 3.2 mmol/L (3.5-5.1) L 02/20/24 02:12 Chloride 97 mmol/L (98-107) L 02/20/24 02:12 Carbon Dioxide 21 mmol/L (21-32) 02/20/24 02:12 Anion Gap 18 (3-11) H 02/20/24 02:12 BUN 20 mg/dl (6-23) 02/20/24 02:12 Creatinine 0.94 mg/dl (0.6-1.4) 02/20/24 02:12 Est Cr Clr Drug Dosing 54.1 ml/min 02/20/24 02:12 eGFR 83.49 02/20/24 02:12 BUN/Creatinine Ratio 21.3 (10-20) H 02/20/24 02:12 Glucose 93 mg/dl (70-99(Fasting)) 02/20/24 02:12 Lactate 1.1 mmol/L (0.4-2.0) 02/20/24 04:17 Calcium 8.9 mg/dl (8.6-10.3) 02/20/24 02:12 Magnesium 1.8 mg/dl (1.7-2.4) 02/20/24 02:12 Total Bilirubin 0.5 mg/dl (0.2-1.0) 02/20/24 02:12 Direct Bilirubin 0.2 mg/dl (0-0.2) 02/20/24 02:12 AST 48 U/L (13-39) H 02/20/24 02:12 ALT 20 U/L (7-52) 02/20/24 02:12 Alkaline Phosphatase 68 U/L (34-104) 02/20/24 02:12 Total Creatine Kinase 549 U/L (30-223) H 02/20/24 02:12 Troponin I High Sens 84.3 pg/ml (0-20) H* D 02/20/24 04:17 Total Protein 8.2 gm/dl (6.0-8.3) 02/20/24 02:12 Albumin 3.7 gm/dl (3.4-5.0) 02/20/24 02:12 Procalcitonin 0.10 ng/ml (0-0.5) 02/20/24 02:12 Urine Color Yellow 02/20/24 02:21 Urine Appearance Clear (Clear) 02/20/24 02:21 Urine pH 5.0 (4.5-7.5) 02/20/24 02:21 Ur Specific [place] 1.022 (1.000-1.030) 02/20/24 02:21 Urine Protein 1+ (Negative) H 02/20/24 02:21 Urine Glucose (UA) Negative (Negative) 02/20/24 02:21 Urine Ketones 2+ (Negative) H 02/20/24 02:21 Urine Blood Negative (Negative) 02/20/24 02:21 Urine Nitrite Negative (Negative) 02/20/24 02:21 Urine Bilirubin Negative (Negative) 02/20/24 02:21 Urine Urobilinogen Negative (Negative) 02/20/24 02:21 Ur Leukocyte Esterase Negative (Negative) 02/20/24 02:21 Urine WBC (Auto) 0-5 /hpf (0-5) 02/20/24 02:21 Urine RBC (Auto) 0-2 /hpf (0-2) 02/20/24 02:21 U Hyaline Cast (Auto) 6-10 /lpf (0-2) H 02/20/24 02:21 U Epithel Cells (Auto) 0-2 /hpf (0-2) 02/20/24 02:21 Urine Bacteria (Auto) None Seen (None Seen) 02/20/24 02:21 Adenovirus (PCR) Not Detected (NotDetected) 02/20/24 02:21 B. pertussis DNA (PCR) Not Detected (NotDetected) 02/20/24 02:21 B.parapertussis DNA PCR Not Detected (NotDetected) 02/20/24 02:21 C. pneumoniae DNA (PCR) Not Detected (NotDetected) 02/20/24 02:21 Coronavirus OC43 (PCR) Not Detected (NotDetected) 02/20/24 02:21 Coronavirus HKU1 (PCR) Not Detected (NotDetected) 02/20/24 02:21 Coronavirus 229E (PCR) Not Detected (NotDetected) 02/20/24 02:21 SARS-CoV-2 (PCR) Not Detected (NotDetected) 02/20/24 02:21 Coronavirus NL63 (PCR) Not Detected (NotDetected) 02/20/24 02:21 Human Metapneumovir PCR Not Detected (NotDetected) 02/20/24 02:21 Influenza A (H3) PCR DETECTED (NotDetected) A 02/20/24 02:21 Influenza Type B (PCR) Not Detected (NotDetected) 02/20/24 02:21 M. pneumoniae (PCR) Not Detected (NotDetected) 02/20/24 02:21 Parainfluenza 1 (PCR) Not Detected (NotDetected) 02/20/24 02:21 Parainfluenza 2 (PCR) Not Detected (NotDetected) 02/20/24 02:21 Parainfluenza 3 (PCR) Not Detected (NotDetected) 02/20/24 02:21 Parainfluenza 4 (PCR) Not Detected (NotDetected) 02/20/24 02:21 RSV (PCR) Not Detected (NotDetected) 02/20/24 02:21 Entero/Rhino (PCR) Not Detected (NotDetected) 02/20/24 02:21 Group A Strep (PCR) NOT DETECTED (NotDetected) 02/20/24 02:21 Impressions Chest X-Ray 02/20/24 02:02 EXAM: XR chest 1V portable CLINICAL HISTORY: SEPSIS JMF TECHNIQUE: An X-ray image of the chest is obtained in AP projection. COMPARISON: No prior studies are available for comparison. FINDINGS: Pulmonary Parenchyma: Lungs show prominent perihilar bronchovascular markings with peribronchial cuffing. No evidence of consolidation, collapse, or focal opacities. No pulmonary nodules are identified. No evidence of pleural effusion or pleural thickening. Heart and Mediastinum: Heart size and shape are normal. No mediastinal widening or masses. No hilar or mediastinal lymphadenopathy. Bony Thorax: Bony thorax appears intact without fractures or deformities. Soft Tissues: Soft tissues overlying the chest wall are unremarkable. IMPRESSION: Bilateral perihilar prominent bronchovascular markings with peribronchial cuffing are non-specific findings; clinical correlation is advised. Electronically signed by Isaac Farrell 02-20-2024 03:[address] 02/20/24 02:06 EXAM: CT head/brain wo con CLINICAL HISTORY: Weakness, slid out of bed onto the floor, and laid on the floor for two days, pt states he did not hit his head. TECHNIQUE: An axial non-contrast CT scan of the brain was performed from the skull base to the high parietal region. One of the following dose reduction techniques was utilized for this exam: Automated exposure control, adjustment of the mA and/or kV according to patient size, and use of iterative reconstruction. DLP: 1674 mGy-cm, CTDI 103.2 mGy. COMPARISON: None. FINDINGS: Brain Parenchyma: There are a few tiny ill-defined [id number] areas noted in the subcortical and deep white matter bilaterally, suggestive of microvascular ischemic changes. Normal attenuation of the cerebral hemispheres, cerebellum, and brainstem. No evidence of acute infarct, hemorrhage, or mass effect. Ventricular System: The ventricular system, cortical sulci, and basal cisterns are prominent and consistent with senile changes. No evidence of subarachnoid hemorrhage or extra-axial fluid collections. Cerebellum and Brainstem: Normal size and signal. No masses, lesions, or areas of abnormal signal. Orbits: Normal appearance of the globes, optic nerves, and extraocular muscles. No evidence of orbital masses. Sinuses: Mild mucosal thickening in the frontal and ethmoid sinuses. Right maxillary mucosal sinus cysts. Patchy opacification of the mastoid air cells. Skull: No evidence of definite acute fracture. Additional: A fluid collection is seen along the lateral aspect of the right masseter muscle, measuring 46 x 8 mm in the right desk attendant space continuing posteriorly with the parotid space. Mild surrounding fat stranding is also seen. Imaging appearances are suggestive of an ongoing infective/inflammatory process. IMPRESSION: 1. No evidence of any acute intracranial event. 2. Age-related involutional and microvascular ischemic changes. 3. Soft tissue thickening with stranding and mild fluid are seen in the right masseter and right parotid space. Need clinical correlation and correlate with impact of trauma. 4. Further evaluation with a contrast-enhanced MRI brain can be considered if clinically indicated. 5. 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 Normal sinus rhythm. Cannot rule out inferior infarct. ST and T wave abnormality in lateral leads. QTc 492 Code Status & VTE Plan VTE Prophylaxis Plan VTE Prophylaxis will be ordered: Yes
--- NOTE | 2024-02-20 09:02 | Electrocardiogram Report ---
Test Reason : Blood Pressure : */* mmHG Vent. Rate : 92 BPM Atrial Rate : 92 BPM P-R Int : 140 ms QRS Dur : 114 ms QT Int : 390 ms P-R-T Axes : 61 66 -85 degrees QTcB Int : 482 ms Normal sinus rhythm Nondiagnostic inferior Q waves Diffuse Nonspecific ST and T wave abnormality Abnormal ECG No previous ECGs available Confirmed by Antoine Cardona ([id number]) on 02/20/2024 9:02:06 AM Referred By: REFERRED SELF Confirmed By: Antoine Cardona
--- NOTE | 2024-02-20 09:04 | Electrocardiogram Report ---
Test Reason : Blood Pressure : */* mmHG Vent. Rate : 70 BPM Atrial Rate : 70 BPM P-R Int : 142 ms QRS Dur : 118 ms QT Int : 456 ms P-R-T Axes : 57 77 -73 degrees QTcB Int : 492 ms Normal sinus rhythm Nondiagnostic inferior Q waves Diffuse Nonspecific ST and T wave abnormality Abnormal ECG When compared with ECG of 20-Feb-2024 01:59, No significant change was found Confirmed by Antoine Cardona ([id number]) on 02/20/2024 9:03:48 AM Referred By: REFERRED SELF Confirmed By: Antoine Cardona
[2024-02-20] MEDS ORDERED: GLUCOSE 40% GEL 15 GM TUBE PO PRN (10:33)
[2024-02-20] MEDS ORDERED: NITROGLYCERIN SL 0.4 MG/TAB TAB SL PRN (10:33)
[2024-02-20] MEDS ORDERED: GLUCAGON FOR INJ 1 MG VIAL SQ PRN (10:33)
[2024-02-20] MEDS ORDERED: LEVALBUTEROL TARTRATE 15 GM HFA.AER.AD INH PRN (10:33)
[2024-02-20] MEDS ORDERED: DEXTROSE 50% 50 ML SYRINGE IV PRN (10:33)
[2024-02-20] MEDS ORDERED: CARBOHYDRATES FOR HYPOGLYCEMIA PO PRN (10:33)
[2024-02-20] MEDS ORDERED: GLUCOSE 10 TAB/TUBE PO PRN (10:33)
[2024-02-20] MEDS ORDERED: OSELTAMIVIR PHOSPHATE 75 MG CAP PO STA (10:48)
[2024-02-20] MEDS: POTASSIUM CHLORIDE CRTAB 20 MEQ TABCR PO SCH (13:07)
[2024-02-20] MEDS: THIAMINE HCL 100 MG TAB PO SCH (13:08)
[2024-02-20] MEDS: SERTRALINE HCL 50 MG TABLET PO SCH (13:08)
[2024-02-20] MEDS: METOPROLOL TARTRATE 100 MG TAB PO SCH (13:08)
[2024-02-20] MEDS: INSULIN ASPART PER UNIT CHARGE SC SCH (13:36)
[2024-02-20] MEDS: TRIAMTERENE/HCTZ 37.5/25MG TAB PO SCH (13:38)
--- NOTE | 2024-02-20 14:24 | Cardiology Consultation ---
Date of Consultation February 20, 2024 Assessment & Plan (1) Influenza: (2) Weakness: (3) Elevated troponin: (4) Abnormal EKG: Plan Patient admitted with diffuse weakness, having been on the floor of his apartment for 1-2 days and unable to get up. He was diagnosed with influenza A. Head CT without acute process. Chronic microvascular changes noted. Found to be dehydrated and treated with IV fluids. Mildly elevated HS troponin noted at 69 - 84 - 65 No chest pain reported. EKG with mild diffuse ST wave abnormalities Echo with preserved LVEF, no wall motion abnormalities. Elevated CK also noted, likely in setting of muscle injury from weakness and laying on the floor. Mild case of rhabdo. IV fluids recommended. No prior cardiac history. Elevated troponin in setting of acute illness and demand ischemic event. Findings not indicative of ACS. He does have risk factors for ischemic heart disease. Recommend adding ASA 81 mg daily. Patient already taking outpatient beta florecita - Metoprolol tartrate 100 mg BID. Add statin once weakness and CK levels improve. Case discussed with Dr. Amaya I spent a total of 60 minutes on the date of service in preparation, delivery, and documentation of the care provided to this patient, excluding any time spent in the performance of separately billed services. Libby Erickson PA-C Department of Cardiology, [facility] This chart was completed in part utilizing Speech Voice Recognition Software. Grammatical errors, random word insertions, pronoun errors, and incomplete sentences are an occasional consequence of this system due to software limitations, ambient noise, and hardware issues. Any formal questions or concerns about the content, text, or information contained within the body of this dictation should be directly addressed to the provider for clarification. Supervising Physician Co-Signing Physician Notes I have personally performed a history and physical examination on the patient. I have reviewed the advance practitioner's documentation, and I agree with, and take responsibility for the plan of care. 78-year-old male presenting with diffuse weakness being found on the floor for approximately 48 hours. Diagnosed with influenza A. Abnormal ECG and mildly elevated high-sensitivity troponin noted. No old ECG available for comparison. Patient denies anginal symptoms specifically chest discomfort or heaviness. Troponin elevation secondary to acute illness/demand ischemia. Echocardiogram demonstrating normal LV systolic function and wall motion. Agree with addition of low-dose aspirin. Continue outpatient beta-florecita, Lopressor 100 mg twice daily. Consider addition of statin therapy when CK levels returned to normal and patient recovers from influenza/diffuse weakness. Thank you for allow me to participate in the care of your patient. Warren Amaya DO, [facility] History of Present Illness Reason for Consultation: elevated troponin; abnormal EKG Requesting Physician: Ryan Hospitalist Attending Physician: Dr. Amaya History of Present Illness Patient is a 78 year old male who presented to [facility] earlier today with diffuse weakness. Apparently he had attempted to get out of bed 1-2 days ago and slid off the bed and was not able to stand. He was reportedly on the floor for several days, unable to move or get up. He reports "my legs didn't work". Eventually he was able to reach his phone and called 911. Brought to ER for evaluation. Upon arrival, patient found to have mildly elevated troponin at 68 - 84 - 65. EKG demonstrated NSR with diffuse ST abnormality, possible LVH Elevated CK also noted at 549 Patient denies chest pain. He admits to SOB with activities for a few days and worsening cough. No sick contacts. Diagnosed with influenza A. Started on Tamiflu. Potassium was low and supplemented. Also treated with IV fluids as he was dehydrated. he had not taken his meds in 1-2 days as well. He denies history of cardiovascular issues. Recently moved to the area from [place]. 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 At time of evaluation, patient feeling ok. Notes ongoing weakness in his legs. Ongoing cough and wheeze. No chest pain or SOB at rest reported. No LE edema. Home Medications Medication Instructions Recorded Confirmed Type insulin glargine 100 unit/mL (3 20 unit subcut UD 02/20/24 02/20/24 History mL) subcutaneous pen (Basaglar AdanPen U-100 Insulin) metoprolol tartrate 100 mg tablet 100 mg PO BID 02/20/24 02/20/24 History potassium chloride 20 mEq 20 meq PO BID 02/20/24 02/20/24 History tablet,extended release(part/cryst) sertraline 50 mg tablet 50 mg PO BID 02/20/24 02/20/24 History thiamine HCl (vitamin B1) 100 mg 100 mg PO DAILY 02/20/24 02/20/24 History tablet triamterene 75 1 tab PO DAILY 02/20/24 02/20/24 History mg-hydrochlorothiazide 50 mg tablet Patient History Social History Smoking Status: Current every day smoker Feels Safe at Home: Yes Review of Systems Review of Systems: All systems reviewed & are unremarkable except as noted in HPI & below Physical Exam Constitutional: WD/WN, vitals as above + thin; no acute distress Neck: trachea midline, no thyromegaly Respiratory: no respiratory distress Auscultation: + diminished lung sounds and + wheezes Cardiovascular: Rate/Rhythm: regular rate and regular rhythm Heart Sounds: no murmur Vessels: no JVD Extremities: no edema Gastrointestinal (Abdomen): normal bowel sounds, soft, nontender, no hepatosplenomegaly Musculoskeletal: no cyanosis or clubbing, extremities motor strength 5/5 Results & Data Vital Signs (Past 12 Hours) Vital Signs Pulse Pulse Resp BP BP Pulse Ox O2 Del Method 02/20/24 12:26 58 L 20 118/60 97 Room Air 02/20/24 10:05 71 02/20/24 09:00 70 24 147/78 H 95 Room Air 02/20/24 08:45 76 24 130/103 H 96 02/20/24 08:15 68 24 135/75 93 02/20/24 08:15 135/75 02/20/24 08:00 72 18 134/69 97 Room Air 02/20/24 07:45 66 29 H 117/72 02/20/24 07:30 70 27 H 138/69 02/20/24 07:15 73 17 119/60 95 02/20/24 06:15 70 22 127/75 94 Room Air 02/20/24 06:00 77 20 140/75 94 Room Air 02/20/24 05:55 72 02/20/24 04:45 78 18 131/71 96 Room Air 02/20/24 04:45 79 20 131/71 98 Room Air 02/20/24 04:30 74 21 141/72 H 95 Room Air 02/20/24 04:15 148/71 H 02/20/24 04:15 76 22 148/71 H 96 Room Air 02/20/24 04:00 95 H 20 154/78 H 98 Room Air 02/20/24 04:00 77 22 154/78 H 96 Room Air 02/20/24 03:49 90 18 139/76 99 Room Air 02/20/24 03:26 84 26 H 165/88 H 96 Room Air 02/20/24 03:18 90 17 99 Room Air 02/20/24 03:06 90 24 96 Room Air 02/20/24 02:30 91 H 18 94 Room Air 02/20/24 02:15 96 H 24 95 Room Air Laboratory Results Cardiac Enzymes 02/20/24 02/20/24 02/20/24 Range/Units 02:12 04:17 11:42 AST 48 H (13-39) U/L Troponin I High Sens 68.2 H* 84.3 H* D 65.5 H* D (0-20) pg/ml CBC 02/20/24 Range/Units 02:12 WBC 8.18 (4.8-10.8) K/ul RBC 5.12 (4.70-6.10) M/uL Hgb 14.9 (14.0-18.0) g/dl Hct 44.4 (42.0-52.0) % Plt Count 133 (130-400) K/uL Neut # (Auto) 6.84 H (1.40-6.50) K/uL Lymph # (Auto) 0.70 L (1.20-3.40) K/uL Hinds # (Auto) 0.60 H (0.11-0.59) K/uL Eos # (Auto) 0.00 (0.00-0.50) K/uL Baso # (Auto) 0.01 (0.00-0.20) K/uL Comprehensive Metabolic Panel 02/20/24 Range/Units 02:12 Sodium 136 (136-145) mmol/L Potassium 3.2 L (3.5-5.1) mmol/L Chloride 97 L (98-107) mmol/L Carbon Dioxide 21 (21-32) mmol/L BUN 20 (6-23) mg/dl Creatinine 0.94 (0.6-1.4) mg/dl Glucose 93 (70-99(Fasting)) mg/dl Calcium 8.9 (8.6-10.3) mg/dl Direct Bilirubin 0.2 (0-0.2) mg/dl AST 48 H (13-39) U/L ALT 20 (7-52) U/L Alkaline Phosphatase 68 (34-104) U/L Total Protein 8.2 (6.0-8.3) gm/dl Albumin 3.7 (3.4-5.0) gm/dl Intake and Output 02/19/24 02/20/24 02/20/24 22:59 06:59 14:59 Intake Total 2400 / 2400 Output Total 350 / 350 75 / 75 Balance 2049 / 2049 -75 / -75 Intake: IV 1999 Sodium Chloride 0.9% 1,000 ml @ 1999 / 1999 999 mls/hr IV .Q1H1M ONE Rx#: [id number] Oral 400 / 400 Output: Urine 350 / 350 75 / 75 Other: Weight 58.1 kg Weight Measurement Method [facility] Diagnostic Findings Telemetry reviewed: NSR, no arrhythmias EKG reviewed from admission: NSR Diffuse ST/T wave abnormality, possible LVH no prior EKG's for comparison Repeat EKG from 02/20/24: NSR with diffuse ST/T wave abnormality no significant changes noted Echo report reviewed dated 02/20/24: No prior comparison study Normal LVEF at 60-65% LV wall motion is normal Grade I diastolic dysfunction Aortic valve sclerosis mild without significant aortic valvular stenosis Mild AI Chest X-Ray 02/20/24 02:02 IMPRESSION: Bilateral perihilar prominent bronchovascular markings with peribronchial cuffing are non-specific findings; clinical correlation is advised. Electronically signed by Isaac Farrell 02-20-2024 03:[address] 02/20/24 02:06 IMPRESSION: 1. No evidence of any acute intracranial event. 2. Age-related involutional and microvascular ischemic changes. 3. Soft tissue thickening with stranding and mild fluid are seen in the right masseter and right parotid space. Need clinical correlation and correlate with impact of trauma. 4. Further evaluation with a contrast-enhanced MRI brain can be considered if clinically indicated. 5. 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 Electronically signed by Isaac Farrell 02-20-2024 05:23 AM Medications Administered Current Inpatient Medications Acetaminophen (Acetaminophen 325 Mg Tab) 650 mg PO Q4H PRN PRN Reason: Pain or Fever Stop: 03/21/24 10:32 Dextrose (Dextrose 50% 50 Ml Syringe) 25 - 50 ml IV UD PRN; Protocol PRN Reason: Hypoglycemia Protocol Stop: 03/21/24 10:32 Glucagon (Glucagon For Inj 1 Mg Vial) 1 mg SQ UD PRN; Protocol PRN Reason: Hypoglycemia Protocol Stop: 03/21/24 10:32 Glucose (Glucose 40% Gel 15 Gm Tube) 15 - 30 gm PO UD PRN; Protocol PRN Reason: Hypoglycemia Protocol Stop: 03/21/24 10:32 Glucose (Glucose 10 Tab/Tube) 4 - 8 tab PO UD PRN; Protocol PRN Reason: Hypoglycemia Protocol Stop: 03/21/24 10:32 Sodium Chloride (Nss) 1,000 mls @ 125 mls/hr IV .Q8H [facility] Stop: 02/21/24 10:32 Last Admin: 02/20/24 13:08 Dose: 125 mls/hr Insulin Aspart (Insulin Aspart Per Unit Charge) 0 units SC ACHS [facility] Stop: 03/21/24 11:29 Last Admin: 02/20/24 13:36 Dose: Not Given Levalbuterol HCl (Levalbuterol 1.25 Mg/3 Ml Neb) 1.25 mg NEB Q4R PRN PRN Reason: Shortness Of Breath Or Wheezing Stop: 03/21/24 10:32 Levalbuterol HCl (Levalbuterol Tartrate 15 Gm Hfa.Aer.Ad) 2 puffs INH QIDR PRN PRN Reason: Shortness Of Breath Or Wheezin Stop: 03/21/24 10:32 Metoprolol Tartrate (Metoprolol Tartrate 100 Mg Tab) 100 mg PO BID [facility] Stop: 03/21/24 10:32 Last Admin: 02/20/24 13:08 Dose: 100 mg Miscellaneous (Carbohydrates For Hypoglycemia ) 15 - 30 gm PO UD PRN PRN Reason: Hypoglycemia Protocol Stop: 03/21/24 10:32 Nitroglycerin (Nitroglycerin Sl 0.4 Mg/Tab Tab) 0.4 mg SL Q5M PRN PRN Reason: Chest Pain Stop: 03/21/24 10:32 Oseltamivir Phosphate (Oseltamivir Phosphate Susp 30 Mg/5 Ml Udp) 30 mg PO BID [facility] Stop: 02/24/24 21:01 Oseltamivir Phosphate (Oseltamivir Phosphate 75 Mg Cap) 75 mg PO TODAY@1048 [facility]; Protocol Stop: 02/20/24 15:00 Potassium Chloride (Potassium Chloride Crtab 20 Meq Tabcr) 20 meq PO BID [facility] Stop: 03/21/24 10:32 Last Admin: 02/20/24 13:07 Dose: 20 meq Sertraline HCl (Sertraline Hcl 50 Mg Tablet) 50 mg PO BID [facility] Stop: 03/21/24 10:32 Last Admin: 02/20/24 13:08 Dose: 50 mg Thiamine HCl (Thiamine Hcl 100 Mg Tab) 100 mg PO DAILY [facility] Stop: 03/21/24 10:32 Last Admin: 02/20/24 13:08 Dose: 100 mg Triamterene/Hydrochlorothiazide (Triamterene/Hctz 37.5/25mg Tab) 1 tab PO DAILY [facility] Stop: 03/21/24 10:32 Last Admin: 02/20/24 13:38 Dose: 1 tab
--- NOTE | 2024-02-20 15:02 | Hospitalist Progress Note ---
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 Patient was feeling weak and fatigued. He slipped from the bed and fell down and he could not get up. He thinks he laid on the floor for 1-1/2-day. Finally was able to call 911 and was brought in here. Alert and oriented. Hard of hearing. Denies any headache. No runny nose or sore throat. Has chronic cough from smoking. Denies any fevers. Denies any chest pain or shortness of breath. No nausea. No abdominal pain. When he was laying on the floor was not able to take his medications and was also dehydrated. X-ray had some loose stools. Micturating okay. Currently hemodynamics are okay. In the ER received fluids, Tylenol and potassium supplement. Influenza Came with fall and weakness Started on Tamiflu IV fluids Droplet precautions Close monitor Elevated troponin Initial troponin 68 and repeat is 84 Denies any chest pain or shortness of breath Abnormal EKG. No old EKG to compare No cardiac history as per patient Will follow serial cardiac enzymes and echo Will consult cardiac for further recommendations History of hypertension Continue home metoprolol tartrate and triamterene/hydrochlorothiazide and potassium supplement. Will monitor Depression On Zoloft Diabetes Seems takes long-acting insulin 20 units nightly For now will place on insulin sliding scale and monitor Follow HbA1c levels Needs follow-up with PCP Disposition Med/telemetry Full code Admission and Anticipated Discharge Date Admission Date: February 20, 2024 Physical Exam Physical Exam: General- Not in distress Head- atraumatic Eyes- PERRL. ENT- oropharynx clear Neck- supple, no JVD. Lungs- clear to auscultation no wheezing or crackles Heart- regular rhythm; no murmur, no gallop. Abdomen- normal bowel sounds, soft, nontender, no distension Extremities- no pretibial edema, no erythema seen Neuro- alert, oriented ; hard of hearing, PERRL, no facial palsy; no dysarthria; moves extremities Results & Data Results & Data Vital Signs (Past 12 Hours) Vital Signs Pulse Pulse Resp BP BP Pulse Ox O2 Del Method 02/20/24 12:26 58 L 20 118/60 97 Room Air 02/20/24 10:05 71 02/20/24 09:00 70 24 147/78 H 95 Room Air 02/20/24 08:45 76 24 130/103 H 96 02/20/24 08:15 68 24 135/75 93 02/20/24 08:15 135/75 02/20/24 08:00 72 18 134/69 97 Room Air 02/20/24 07:45 66 29 H 117/72 02/20/24 07:30 70 27 H 138/69 02/20/24 07:15 73 17 119/60 95 02/20/24 06:15 70 22 127/75 94 Room Air 02/20/24 06:00 77 20 140/75 94 Room Air 02/20/24 05:55 72 02/20/24 04:45 78 18 131/71 96 Room Air 02/20/24 04:45 79 20 131/71 98 Room Air 02/20/24 04:30 74 21 141/72 H 95 Room Air 02/20/24 04:15 148/71 H 02/20/24 04:15 76 22 148/71 H 96 Room Air 02/20/24 04:00 95 H 20 154/78 H 98 Room Air 02/20/24 04:00 77 22 154/78 H 96 Room Air 02/20/24 03:49 90 18 139/76 99 Room Air 02/20/24 03:26 84 26 H 165/88 H 96 Room Air 02/20/24 03:18 90 17 99 Room Air 02/20/24 03:06 90 24 96 Room Air
[2024-02-20 15:23] LABS: Creatinine Clr Calc Pharmacy 64.4 ml/min; Magnesium 1.7 mg/dl (1.7-2.4); Potassium 3.5 mmol/L (3.5-5.1)
[2024-02-20] MEDS ORDERED: VANCOMYCIN CONSULT ACTIVE PRN (15:24)
[2024-02-20] MEDS: OSELTAMIVIR PHOSPHATE 75 MG CAP PO SCH (15:29)
[2024-02-20] MEDS: ASPIRIN 81 MG ECTAB PO SCH (15:29)
[2024-02-20] MEDS ORDERED: PIPERACILLIN/TAZOBACTAM 4.5 GM/100 ML BAG IV SCH (15:30)
--- NOTE | 2024-02-20 15:35 | Communication Note ---
Date of Service: February 20, 2024 Patient seen and examined at bedside He is lying on the bed comfortably; not in distress Reports of cough and generalized weakness Vital signs remained stable and he is saturating well on room air. On physical examination Constitutional: Alert oriented x 3; not in distress. Respiratory: Bilateral vesicular breath sound Cardiovascular: RRR, no murmur, no edema Vessels: no JVD or carotid bruit Abdomen: normal bowel sounds, soft, nontender, no hepatosplenomegaly Musculoskeletal: Great toe of right foot with black eschar; spreading down the forefoot. Dorsalis pedis pulse intact. Amputated fifth toe on right foot. No abnormality in left foot. Neurologic: PERRL, EOMI, accommodation nl, no face palsy, no dysarthria CN's II- XI intact bilaterally and moves all extremities Psychiatric: A+Ox3, euthymic affect Assessment/plan Gangrene of great toe of right foot Patient reports that he ripped off the nail of the right foot about a month ago; wound gradually increased over the course of last month resulting in replacement of the toe with black eschar. hx of diabetic neuropathy with amputation of 5th toe of right foot Obtain ESR, CRP. Started on vancomycin, Zosyn. Obtain MRI of the foot. Patient will likely need amputation and debridment; podiatry consulted. follow up blood culture wound care consult after debridement/amputation Generalized weakness Influenza A Patient presented with flulike symptoms, generalized tiredness/fatigue Respiratory viral panel positive for influenza A Chest x-ray does not show infiltrates Continue Tamiflu; treat for 5 days PT OT eval Elevated high sensitive troponin of undetermined significance in setting of influenza A high sensitivity elevated with no significant delta difference. Echo with EF. of 60-65%, grade I diastolic dysfunction History of hypertension Continue home metoprolol tartrate and triamterene/hydrochlorothiazide and potassium supplement. Will monitor Depression On Zoloft Type 2 Diabetes on long-acting insulin 20 units nightly For now will place on insulin sliding scale and monitor Follow HbA1c levels needs to establish new PCP Full code dvt prophylaxis heparin Please note the above document was generated using voice recognition software. It may contain grammatical, syntax or spelling errors. Any formal questions or concerns about the content, text or information contained within the body of this dictation should be directly addressed to the provider for clarification
[2024-02-20] MEDS: PIPERACILLIN/TAZOBACTAM 4.5 GM/100 ML BAG IV ONE (16:07)
[2024-02-20] MEDS: VANCOMYCIN HCL 1,500 MG in SODIUM CHLORIDE 0.9% 500 ML IV ONE (16:34)
[2024-02-20] MEDS: GADOBUTROL 65ML VIAL IV ONE (18:00)
--- NOTE | 2024-02-20 18:36 | Magnetic Resonance Report ---
Clinical history: Wound. Diabetic neuropathy Technique: Multiple T1 and T2-weighted magnetic resonance images were obtained of the right foot before and after the administration of 5.5 cc of Gadavist intravenous gadolinium contrast Findings: There has been amputation of the first digit at the level of the metatarsal base. There has been resection of the head, neck, and mid and distal shaft of the fifth metatarsal, with the fifth toe phalanges remaining There is bone marrow edema with enhancement involving the head and neck of the second metatarsal and there is bone marrow edema throughout the second toe proximal phalanx. This could be due to osteomyelitis. There is mild surrounding soft tissue edema and fluid. There is less severe bone marrow edema within the base and shaft of the second metatarsal. There is a suspected displaced and angulated fracture of the head of the second toe proximal phalanx. There is no subluxation or dislocation. No significant arthritic changes are seen. No focal osseous lesion is evident. No definite ligament tear is seen. The visualized tendons appear intact without tendinopathy, tenosynovitis or tear. There is mild edema of the foot musculature. There is a joint effusion involving the second metatarsophalangeal joint Impression: 1. Fracture of the head of the second toe proximal phalanx 2. Possible acute osteomyelitis involving the second toe proximal phalanx and the head and neck of the second metatarsal 3. Possible septic arthritis involving the second MTP joint 4. Prior great toe amputation and partial resection of the fifth metatarsal Electronically signed by Tevin Mtz 02-20-2024 6:36 PM
[2024-02-20] MEDS: HEPARIN SOD 5,000 UNIT/0.5 ML VIAL SQ SCH (20:45)
[2024-02-20] MEDS: OSELTAMIVIR PHOSPHATE SUSP 30 MG/5 ML UDP PO SCH (22:00)
[2024-02-20] MEDS: PIPERACILLIN/TAZOBACTAM 4.5 GM/100 ML BAG IV SCH (22:02)
[2024-02-20] MEDS ORDERED: Patient's ALLERGY Info needs ENTERED STA (22:45)
[2024-02-20] MEDS ORDERED: Patient's ALLERGY Info needs ENTERED SCH (23:00)
[2024-02-21] MEDS: VANCOMYCIN 750 MG in SODIUM CHLORIDE 0.9% 250 ML IV SCH ×2 (03:41→13:17)
[2024-02-21 05:51] LABS: Basophils # (auto) 0.01 K/uL (0.00-0.20); Basophils % (auto) 0.2 %; Eosinophils # (auto) 0.01 K/uL (0.00-0.50); Eosinophils % (auto) 0.2 %; Hematocrit (blood only) 38.5 % (42.0-52.0); Hemoglobin 12.9 g/dl (14.0-18.0); Immature Granulocytes # (auto) 0.02 K/uL (0.01-0.20); Immature Granulocytes % (auto) 0.3 %; Lymphocytes # (auto) 0.76 K/uL (1.20-3.40); Lymphocytes % (auto) 12.7 %; Mean Corpuscular Hemoglobin 29.1 pg (25.0-34.0); Mean Corpuscular Hgb Conc 33.5 g/dL (32.0-36.0); Mean Corpuscular Volume 86.7 fL (80.0-100.0); Mean Platelet Volume 9.4 fL (9.4-12.4); Monocytes # (auto) 0.39 K/uL (0.11-0.59); Monocytes % (auto) 6.5 %; Neutrophils # (auto) 4.81 K/uL (1.40-6.50); Neutrophils % (auto) 80.1 %; Platelet Count 102 K/uL (130-400); RDW Coefficient of Variation 13.2 % (11.5-14.5); RDW Standard Deviation 41.6 fL (36.4-46.3); Red Blood Count 4.44 M/uL (4.70-6.10)
[2024-02-21 06:03] LABS: BUN Creatinine Ratio 16.7 (10-20); C Reactive Protein 13.12 mg/dl (0-0.5); Calcium 7.5 mg/dl (8.6-10.3); Creatinine Clr Calc Pharmacy 88.7 ml/min; Magnesium 1.6 mg/dl (1.7-2.4); Phosphorus 2.4 mg/dl (2.5-4.9); Potassium 3.4 mmol/L (3.5-5.1)
[2024-02-21 07:58] LABS: Estimated Average Glucose 137 mg/dl; Hemoglobin A1C 6.4 % (4.5-5.6)
[2024-02-21] MEDS: hydrOXYzine HCl 25 MG TAB PO PRN (08:30)
[2024-02-21] MEDS: MAGNESIUM SULFATE / D5W 1 GM/100 ML BAG IV SCH (08:33)
[2024-02-21] MEDS: POT PHOSPHATE MONOBASIC W/ SOD TAB PO SCH (10:27)
--- NOTE | 2024-02-21 10:27 | Pharmacy Report ---
Pharmacy PK ABX Note - Date of Service February 21, 2024 - Assessment and Plan Assessment 78 year old M receiving vancomycin for treatment of possible gangrene/osteomyelitis of R foot. PMH includes HTN, DM requiring insulin, past amputation of 5th toe on right foot, current influenza A infx. Blood cultures show no growth @24hours. Day # 2 of antimicrobial therapy. Plan Vancomycin * Loading dose: 1500 mg IV x 1 * Maintenance dose: 750 mg IV every 8 hours * Regimen is predicted to achieve target AUC/OLIVERIO of 400-600 mg/L.hr * Trough level ordered for: 02/21 @1100 Piperacillin/tazobactam 4.5g q8h Pharmacy will continue to follow and will adjust dose/frequency as necessary. Thank you. Pharmacy has transitioned to AUC monitoring for vancomycin. AUC/OLIVERIO is the preferred PK/PD target and is associated with decreased risk of nephrotoxicity compared to traditional trough targets.
--- NOTE | 2024-02-21 12:05 | Podiatry Consultation ---
Date of Consultation February 21, 2024 Assessment & Plan (1) Acute osteomyelitis of right foot: (2) Gangrene of right foot: (3) Cellulitis of right leg: (4) Diabetes mellitus with peripheral angiopathy with gangrene: Diabetes mellitus type: type 2 Diabetes mellitus assisted insulin use: with terminal operator use Qualified Code(s): E11.52 - Type 2 diabetes mellitus with diabetic peripheral angiopathy with gangrene; Z79.4 - terminal clerk (current) use of insulin (5) Type 2 diabetes mellitus with diabetic polyneuropathy: Diabetes mellitus assisted insulin use: with terminal operator use Qualified Code(s): E11.42 - Type 2 diabetes mellitus with diabetic polyneuropathy; Z79.4 - long-term (current) use of insulin Plan Patient was examined and evaluated. We discussed at length etiology and treatment of his right second toe concerns. This toe certainly needs amputation and we can add him on the schedule tomorrow for this. We did discuss that he could also benefit from a transmetatarsal amputation, given the proximal extent of the gangrene and the only remaining toes being lesser digits at this point. Currently, he is leaning towards the simple second toe amputation. We did discuss that this puts him at risk of loss of the remainder of the digits in the future. For now, we will plan on scheduling him for the second toe amputation likely at the metatarsal phalangeal joint or more proximal as needed. Patient understands and will sign consent prior to surgery tomorrow morning. Thank you for the consult, we are always happy to help with these consults whenever available. History of Present Illness Reason for Consultation: Right toe gangrene Attending Physician: Dylon Larry MD History of Present Illness Patient seen at bedside. He states that for the last several weeks he has noticed increasing damage to his right second toe. He states that this began when he pulled his nail off and since that time, he has noticed increased blackening and dryness to the toe. He recently felt systemic signs of infection so presented to the emergency department for evaluation. He has since been evaluated for this toe gangrene and we were consulted for further follow-up. He states that it is painful overall and has had prior right great toe amputation for a similar concern in the past. He believes both of these were caused by his own doing. He denies any other foot and ankle concerns at this time. Allergies Allergy/AdvReac Type Severity Reaction Status Date / Time No Known Allergies Allergy Unverified 02/20/24 23:12 Home Medications Medication Instructions Recorded Confirmed Type insulin glargine 100 unit/mL (3 20 unit subcut UD 02/20/24 02/20/24 History mL) subcutaneous pen (Basaglar KwikPen U-100 Insulin) metoprolol tartrate 100 mg tablet 100 mg PO BID 02/20/24 02/20/24 History potassium chloride 20 mEq 20 meq PO BID 02/20/24 02/20/24 History tablet,extended release(part/cryst) sertraline 50 mg tablet 50 mg PO BID 02/20/24 02/20/24 History thiamine HCl (vitamin B1) 100 mg 100 mg PO DAILY 02/20/24 02/20/24 History tablet triamterene 75 1 tab PO DAILY 02/20/24 02/20/24 History mg-hydrochlorothiazide 50 mg tablet Patient History Social History Smoking Status: Current every day smoker Tobacco Type: Cigarettes Do You Dip or Chew Tobacco: No; Tobacco Cessation Education Requested by Patient: No Hx Alcohol Use: No Hx Substance Use: No Preferred 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 Beliefs That Will Affect Care: None Current Living Situation: Alone Other Information That Helps Us Care for You: No Feels Safe at Home: Yes Safety Concerns: Feels Safe At This Time Assistive Devices: None Review of Systems Review of Systems: All systems reviewed & are unremarkable except as noted in HPI & below Constitutional: no fever, no chills and no fatigue Eyes: no problem reported Ear, Nose, Mouth, Throat: no problem reported Respiratory: no problem reported Cardiovascular: + edema; no problem reported Gastrointestinal: no nausea, no vomiting and no problem reported Musculoskeletal: no problem reported Integumentary: + skin ulcer, + wounds and + erythema Neurologic: + loss of sensation, + numbness and + pa resthesia; no generalized weakness Psychiatric: no problem reported Physical Exam Physical Exam: Lower extremity focused exam: DP/PT pulses nonpalpable. CFT is brisk to the digits, except for the right second toe which is diffusely gangrenous. The gangrene extends to the level of the metatarsal phalangeal joint. The right hallux amputation is noted, with a proximal level of amputation, just distal to the tarsometatarsal joint noted on CT scan. CT scan does reveal osteomyelitis with septic joint throughout the second toe. This is consistent with the level of necrosis to the digit. No significant purulence is noted and no ascending cellulitis is noted. There is pain on palpation of the toe with protective sensation otherwise absent. 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) Chest (Breasts): normal inspection/palpation of breasts Gastrointestinal (Abdomen): Inspection/Auscultation: abdomen normal to inspection; abdomen not distended Percussion/Palpation: no guarding Musculoskeletal: Head/Neck/Chest: normocephalic and head atraumatic Extremities: + limited ROM of extremities, + muscle atrophy and + foot abnormality Skin: + ulcer, + skin tightening, + skin atrop hy, + erythema and + eschar Neurologic: plantar reflexes intact bilaterally and moves all extremities; + abnormal sensation to monofilament Psychiatric: A+Ox3, euthymic affect Results & Data Vital Signs (Past 12 Hours) Vital Signs Temp Pulse Pulse Resp BP Pulse Ox O2 Del Method 02/21/24 11:51 36.4 C L 54 L 18 145/73 H 93 Room Air 02/21/24 08:30 Room Air 02/21/24 07:45 36.9 C 64 18 157/75 H 92 Room Air 02/21/24 07:19 60 02/21/24 02:38 37.0 C 60 18 151/68 H 93 Room Air 02/21/24 00:00 64
--- NOTE | 2024-02-21 13:45 | Cardiology Progress Note ---
Date of Service February 21, 2024 Assessment & Plan (1) Influenza: (2) Weakness: (3) Elevated troponin: (4) Abnormal EKG: Plan 02/20/24: Patient admitted with diffuse weakness, having been on the floor of his apartment for 1-2 days and unable to get up. He was diagnosed with influenza A. Head CT without acute process. Chronic microvascular changes noted. Found to be dehydrated and treated with IV fluids. Mildly elevated HS troponin noted at 69 - 84 - 65 No chest pain reported. EKG with mild diffuse ST wave abnormalities Echo with preserved LVEF, no wall motion abnormalities. Elevated CK also noted, likely in setting of muscle injury from weakness and laying on the floor. Mild case of rhabdo. IV fluids recommended. No prior cardiac history. Elevated troponin in setting of acute illness and demand ischemic event. Findings not indicative of ACS. He does have risk factors for ischemic heart disease. Recommend adding ASA 81 mg daily. Patient already taking outpatient beta florecita - Metoprolol tartrate 100 mg BID. Add statin once weakness and CK levels improve. 02/21/24: Patient treated for influenza A Now diagnosed with right foot/toe osteomyelitis requiring amputation of the right 2nd toe. Scheduled for tomorrow. Elevated troponin on admission with preserved LVEF on echo. No wall motion abnormalities No symptoms to suggest angina. Continue ASA, metoprolol. Add statin when CK returns to normal. Continue IV fluids. Supplement potassium and magnesium to keep potassium 4-5 and magnesium > 2.0 He was found to have prolonged QT on EKG this morning - Recheck - If remains prolonged may need to adjust Zoloft dose? Case discussed with Dr. Amaya I spent a total of 30 minutes on the date of service in preparation, delivery, and documentation of the care provided to this patient, excluding any time spent in the performance of separately billed services. Libby Erickson PA-C Department of Cardiology, [facility] This chart was completed in part utilizing Speech Voice Recognition Software. Grammatical errors, random word insertions, pronoun errors, and incomplete sentences are an occasional consequence of this system due to software limitations, ambient noise, and hardware issues. Any formal questions or concerns about the content, text, or information contained within the body of this dictation should be directly addressed to the provider for clarification. Admission and Anticipated Discharge Date Admission Date: February 20, 2024 Supervising Physician Co-Signing Physician Notes I have personally performed a history and physical examination on the patient. I have reviewed the advance practitioner's documentation, and I agree with, and take responsibility for the plan of care. 78-year-old male presenting with diffuse weakness being found on the floor for approximately 48 hours. Diagnosed with influenza A. Abnormal ECG (chronicity unknown, and mildly elevated high-sensitivity troponin remains flat. No anginal symptoms prior to admission. No regional wall motion abnormality per echocardiogram.Patient may proceed with toe amputation as scheduled. Continue aspirin and metoprolol. Repeat ECG. I spent a total of 25 minutes on the date of service in preparation, delivery, and documentation of the care provided to this patient, excluding any time spent in the performance of separately billed services. Warren Amaya DO, [facility] Subjective Patient laying in bed. ongoing weakness reported. Cough and SOB improving. No chest pain. Found to have 2nd right toe gangrene and probable osteomyelitis. Planning for amputation tomorrow. Review of Systems Review of Systems: All systems reviewed & are unremarkable except as noted in HPI & below Physical Exam Constitutional: WD/WN, vitals as above + thin; no acute distress Neck: trachea midline, no thyromegaly Respiratory: no respiratory distress Auscultation: + diminished lung sounds and + wheezes Cardiovascular: Rate/Rhythm: regular rate and regular rhythm Heart Sounds: no murmur Vessels: no JVD Extremities: no edema (right toes wrapped ) Gastrointestinal (Abdomen): normal bowel sounds, soft, nontender, no hepatosplenomegaly Musculoskeletal: no cyanosis or clubbing, extremities motor strength 5/5 Results & Data Vital Signs (Past 12 Hours) Vital Signs Temp Pulse Pulse Resp BP Pulse Ox O2 Del Method 02/21/24 11:51 36.4 C L 54 L 18 145/73 H 93 Room Air 02/21/24 08:30 Room Air 02/21/24 07:45 36.9 C 64 18 157/75 H 92 Room Air 02/21/24 07:19 60 02/21/24 02:38 37.0 C 60 18 151/68 H 93 Room Air Laboratory Results Cardiac Enzymes 02/20/24 02/20/24 Range/Units 16:03 23:04 Troponin I High Sens 78.8 H* D 78.5 H* (0-20) pg/ml CBC 02/21/24 Range/Units 05:29 WBC 6.00 (4.8-10.8) K/ul RBC 4.44 L (4.70-6.10) M/uL Hgb 12.9 L (14.0-18.0) g/dl Hct 38.5 L (42.0-52.0) % Plt Count 102 L (130-400) K/uL Neut # (Auto) 4.81 (1.40-6.50) K/uL Lymph # (Auto) 0.76 L (1.20-3.40) K/uL Peach # (Auto) 0.39 (0.11-0.59) K/uL Eos # (Auto) 0.01 (0.00-0.50) K/uL Baso # (Auto) 0.01 (0.00-0.20) K/uL Comprehensive Metabolic Panel 02/20/24 02/21/24 Range/Units 14:32 05:29 Sodium 135 L 136 (136-145) mmol/L Potassium 3.5 3.4 L (3.5-5.1) mmol/L Chloride 103 104 (98-107) mmol/L Carbon Dioxide 24 24 (21-32) mmol/L BUN 15 12 (6-23) mg/dl Creatinine 0.79 0.72 (0.6-1.4) mg/dl Glucose 137 H 101 H (70-99(Fasting)) mg/dl Calcium 8.0 L 7.5 L (8.6-10.3) mg/dl Intake and Output 02/20/24 02/21/24 02/21/24 22:59 06:59 14:59 Intake Total 1870 / 3250.833 1380.833 / 3250.833 1295 / 1295 Output Total 650 / 1100 375 / 1100 Balance 1220 / 2150.833 1005.833 / 2150.833 1295 / 1295 Intake: IV 1630 / 2890.833 1260.833 / 2890.833 1295 / 1295 Magnesium Sulfate / D5w 1 gm In 195 / 195 100 ml @ 50 mls/hr IV Q2H [facility] Rx#:[id number] Piperacillin/Tazobactam 4.5 gm 100 / 200 100 / 200 100 / 100 In 100 ml @ 25 mls/hr IV Q8H [facility] Rx#:[id number] Sodium Chloride 0.9% 1,000 ml @ 1000 / 1895.833 895.833 / 6160.845 4460 / 1000 125 mls/hr IV .Q8H [facility] Rx#: [id number] Vancomycin HCl 750 mg In Sodium 265 / 265 Chloride 0.9% 250 ml @ 200 mls /hr IV Q12H [facility] Rx#:[id number] Vancomycin HCl 1,500 mg In 530 / 530 Sodium Chloride 0.9% 500 ml @ 200 mls/hr IV NOW ONE Rx#: [id number] Oral 240 / 360 120 / 360 Output: Urine Amount (Catheter) 650 / 1025 375 / 1025 External 650 / 1025 375 / 1025 Other: Weight 73.028 kg 73 kg Weight Measurement Method Built in Bedscale Built in Bedscale Diagnostic Findings Telemetry reviewed: NSR in the 60's EKG this morning: NSR with sinus arrhythmia Non specific ST abnormality Prolonged QT interval 512 ms Echo report reviewed from 02/20/24: No comparison study available LVEF 60-65% Grade I diastolic dysfunction Aortic valve sclerosis mild, without significant aortic valvular stenosis Foot MRI Impression: 1. Fracture of the head of the second toe proximal phalanx 2. Possible acute osteomyelitis involving the second toe proximal phalanx and the head and neck of the second metatarsal 3. Possible septic arthritis involving the second MTP joint 4. 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 Medications Administered Current Inpatient Medications Acetaminophen (Acetaminophen 325 Mg Tab) 650 mg PO Q4H PRN PRN Reason: Pain or Fever Stop: 03/21/24 10:32 Aspirin (Aspirin 81 Mg Ectab) 81 mg PO QAM [facility] Stop: 03/21/24 15:14 Last Admin: 02/21/24 08:31 Dose: 81 mg Dextrose (Dextrose 50% 50 Ml Syringe) 25 - 50 ml IV UD PRN; Protocol PRN Reason: Hypoglycemia Protocol Stop: 03/21/24 10:32 Glucagon (Glucagon For Inj 1 Mg Vial) 1 mg SQ UD PRN; Protocol PRN Reason: Hypoglycemia Protocol Stop: 03/21/24 10:32 Glucose (Glucose 40% Gel 15 Gm Tube) 15 - 30 gm PO UD PRN; Protocol PRN Reason: Hypoglycemia Protocol Stop: 03/21/24 10:32 Glucose (Glucose 10 Tab/Tube) 4 - 8 tab PO UD PRN; Protocol PRN Reason: Hypoglycemia Protocol Stop: 03/21/24 10:32 Heparin Sodium (Porcine) (Heparin Sod 5,000 Unit/0.5 Ml Vial) 5,000 units SQ Q12 [facility] Stop: 03/21/24 20:59 Last Admin: 02/21/24 08:30 Dose: 5,000 units Hydroxyzine HCl (Hydroxyzine Hcl 25 Mg Tab) 25 mg PO Q8H PRN PRN Reason: Anxiety Stop: 03/22/24 07:43 Last Admin: 02/21/24 08:30 Dose: 25 mg Piperacillin Sod/Tazobactam Sod (Zosyn) 4.5 gm in 100 mls @ 25 mls/hr IV Q8H [facility]; Protocol Stop: 04/02/24 21:59 Last Admin: 02/21/24 13:17 Dose: 25 mls/hr Vancomycin HCl 750 mg/ Sodium (Chloride) 265 mls @ 200 mls/hr IV Q8H [facility] Stop: 04/03/24 03:59 Last Admin: 02/21/24 13:17 Dose: 200 mls/hr Insulin Aspart (Insulin Aspart Per Unit Charge) 0 units SC ACHS [facility] Stop: 03/21/24 11:29 Last Admin: 02/21/24 12:04 Dose: Not Given Levalbuterol HCl (Levalbuterol 1.25 Mg/3 Ml Neb) 1.25 mg NEB Q4R PRN PRN Reason: Shortness Of Breath Or Wheezing Stop: 03/21/24 10:32 Levalbuterol HCl (Levalbuterol Tartrate 15 Gm Hfa.Aer.Ad) 2 puffs INH QIDR PRN PRN Reason: Shortness Of Breath Or Wheezin Stop: 03/21/24 10:32 Metoprolol Tartrate (Metoprolol Tartrate 100 Mg Tab) 100 mg PO BID [facility] Stop: 03/21/24 10:32 Last Admin: 02/21/24 08:31 Dose: 100 mg Miscellaneous (Carbohydrates For Hypoglycemia ) 15 - 30 gm PO UD PRN PRN Reason: Hypoglycemia Protocol Stop: 03/21/24 10:32 Miscellaneous Information (Vancomycin Consult Active) 1 each N/A UD PRN PRN Reason: Consult Stop: 03/21/24 15:23 Nitroglycerin (Nitroglycerin Sl 0.4 Mg/Tab Tab) 0.4 mg SL Q5M PRN PRN Reason: Chest Pain Stop: 03/21/24 10:32 Oseltamivir Phosphate (Oseltamivir Phosphate 75 Mg Cap) 75 mg PO BID [facility] Stop: 02/24/24 21:01 Potassium Chloride (Potassium Chloride Crtab 20 Meq Tabcr) 20 meq PO BID [facility] Stop: 03/21/24 10:32 Last Admin: 02/21/24 08:30 Dose: 20 meq Potassium Phosphate (Pot Phosphate Monobasic W/ Sod Tab) 2 tab PO QID [facility] Stop: 02/22/24 13:01 Last Admin: 02/21/24 13:16 Dose: 2 tab Sertraline HCl (Sertraline Hcl 50 Mg Tablet) 50 mg PO BID [facility] Stop: 03/21/24 10:32 Last Admin: 02/21/24 08:31 Dose: 50 mg Thiamine HCl (Thiamine Hcl 100 Mg Tab) 100 mg PO DAILY [facility] Stop: 03/21/24 10:32 Last Admin: 02/21/24 08:31 Dose: 100 mg Triamterene/Hydrochlorothiazide (Triamterene/Hctz 37.5/25mg Tab) 1 tab PO DAILY [facility] Stop: 03/21/24 10:32 Last Admin: 02/21/24 08:31 Dose: 1 tab
--- NOTE | 2024-02-21 15:06 | Hospitalist Progress Note ---
Date of Service February 21, 2024 Assessment & Plan (1) Gangrene of right foot: Plan 78-year-old male who recently moved from [place], with PMH of HTN, DM, depression, ongoing tobacco use, heavy alcohol use [no drinking since last 6 months as per patient] who lives alone at home presented to the ED 02/19 with complaint of fall and found to have flu positive. Patient was feeling weak and fatigued. He slid from bed and fell down and he could not get up, he thinks he laid on the floor for 1 to 1 and half days and was finally able to call 911 and was brought in here. 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 hx of diabetic neuropathy with amputation of 5th toe of right foot ESR 43, CRP 13. MRI foot positive for acute osteomyelitis involving second toe proximal phalanx and head/neck of the second metatarsal. Possible septic arthritis involving the second MTP joint. c/w vancomycin, Zosyn 02/19. Podiatry on board, for amputation tomorrow. N.p.o. midnight, follow operative culture. wound care consult after debridement/amputation ID consult after intervention. Generalized weakness Influenza A Patient presented with flulike symptoms, generalized tiredness/fatigue Respiratory viral panel positive for influenza A Chest x-ray does not show infiltrates Continue Tamiflu; treat for 5 days PT OT eval Elevated high sensitive troponin of undetermined significance in setting of influenza A high sensitivity elevated with no significant delta difference. Echo with EF. of 60-65%, grade I diastolic dysfunction, Left ventricle wall motion normal. Cardiology evaluated, appreciate recommendation. Monitor replete electrolytes. Elevated CPK: Downtrending, repeat CPK in AM. History of hypertension: Continue home metoprolol tartrate and triamterene/hydrochlorothiazide and potassium supplement. Will monitor Depression: On Zoloft Type 2 Diabetes on long-acting insulin 20 units nightly For now will place on insulin sliding scale and monitor a1c 6.4 this admisison needs to establish new PCP Full code dvt prophylaxis heparin Updated patient's son Keyon over the phone, answered all his questions. He requested to speak with podiatry, communicated with podiatry of his intention to speak prior to surgery tomorrow morning. Admission and Anticipated Discharge Date Admission Date: February 20, 2024 Subjective Patient was seen and examined at bedside. Patient was lying in bed, on room air, NAD, resting comfortably. Patient reports eating okay, reports moving loose bowels. if it becomes frequent and watery, will do stool PCR. For now add probiotic and psyllium fiber. Patient otherwise reports eating okay, denies sore throat, reports baseline cough, denies fever and belly pain. Physical Exam Physical Exam: Constitutional: Alert oriented x 3; not in distress. Respiratory: Bilateral vesicular breath sound Cardiovascular: RRR, no murmur, no edema Vessels: no JVD or carotid bruit Abdomen: normal bowel sounds, soft, nontender, no hepatosplenomegaly Musculoskeletal: Great toe of right foot with black eschar; spreading down the forefoot. Dorsalis pedis pulse intact. Amputated fifth toe on right foot. No abnormality in left foot. Neurologic: PERRL, EOMI, accommodation nl, no face palsy, no dysarthria CN's II- XI intact bilaterally and moves all extremities Psychiatric: A+Ox3, euthymic affect Results & Data Results & Data Vital Signs (Past 12 Hours) Vital Signs Temp Pulse Pulse Resp BP Pulse Ox O2 Del Method 02/21/24 14:54 51 L 02/21/24 11:51 36.4 C L 54 L 18 145/73 H 93 Room Air 02/21/24 08:30 Room Air 02/21/24 07:45 36.9 C 64 18 157/75 H 92 Room Air 02/21/24 07:19 60
[2024-02-21] MEDS: ADVANCED PROBIOTIC 625 MG CAPSULE PO SCH (16:10)
[2024-02-21] MEDS: PSYLLIUM or GUAR GUM FIBER 4GM PACKET PO SCH (16:10)
[2024-02-21] MEDS: OSELTAMIVIR PHOSPHATE 75 MG CAP PO SCH (21:53)
[2024-02-22 06:52] LABS: Hematocrit (blood only) 40.4 % (42.0-52.0); Hemoglobin 13.7 g/dl (14.0-18.0); Mean Corpuscular Hemoglobin 28.9 pg (25.0-34.0); Mean Corpuscular Hgb Conc 33.9 g/dL (32.0-36.0); Mean Corpuscular Volume 85.2 fL (80.0-100.0); Mean Platelet Volume 9.3 fL (9.4-12.4); Platelet Count 110 K/uL (130-400); RDW Coefficient of Variation 13.1 % (11.5-14.5); Red Blood Count 4.74 M/uL (4.70-6.10); White Blood Count 5.59 K/ul (4.8-10.8)
--- NOTE | 2024-02-22 07:14 | Electrocardiogram Report ---
Test Reason : Blood Pressure : */* mmHG Vent. Rate : 60 BPM Atrial Rate : 60 BPM P-R Int : 138 ms QRS Dur : 114 ms QT Int : 512 ms P-R-T Axes : 68 74 14 degrees QTcB Int : 512 ms Normal sinus rhythm with sinus arrhythmia Nonspecific ST abnormality Prolonged QT Abnormal ECG When compared with ECG of 20-Feb-2024 05:15, No significant change Confirmed by Basim Humphries ([id number]) on 02/22/2024 7:14:34 AM Referred By: REFERRED SELF Confirmed By: Basim Humphries
[2024-02-22 07:16] LABS: BUN Creatinine Ratio 15.2 (10-20); Creatinine Clr Calc Pharmacy 92.8 ml/min; Magnesium 1.9 mg/dl (1.7-2.4); Phosphorus 2.6 mg/dl (2.5-4.9); Potassium 3.2 mmol/L (3.5-5.1)
--- NOTE | 2024-02-22 07:49 | Electrocardiogram Report ---
Test Reason : Blood Pressure : */* mmHG Vent. Rate : 56 BPM Atrial Rate : 56 BPM P-R Int : 134 ms QRS Dur : 120 ms QT Int : 504 ms P-R-T Axes : 40 75 56 degrees QTcB Int : 486 ms Sinus bradycardia Non-specific intra-ventricular conduction delay Nonspecific ST abnormality Abnormal ECG When compared with ECG of 21-Feb-2024 08:00, (unconfirmed) No significant change was found Confirmed by Basim Humphries ([id number]) on 02/22/2024 7:49:23 AM Referred By: REFERRED SELF Confirmed By: Basim Humphries
[2024-02-22] MEDS ORDERED: LIDOCAINE 2% 2 ML VIAL/AMP(20MG/ML) INFIL ONE (07:55)
[2024-02-22] MEDS ORDERED: PROPOFOL IV EMULSION 10 MG/ML 20 ML VIAL IV ONE (07:55)
[2024-02-22] MEDS ORDERED: fentaNYL citrate PF 100 MCG/2 ML VIAL ONE (07:55)
[2024-02-22] MEDS: POTASSIUM CHLORIDE CRTAB 20 MEQ TABCR PO STA (08:09)
--- NOTE | 2024-02-22 08:28 | Hospitalist Progress Note ---
Date of Service February 22, 2024 Assessment & Plan (1) Gangrene of right foot: Plan 78-year-old male who recently moved from [place], with PMH of HTN, DM, depression, ongoing tobacco use, heavy alcohol use [no drinking since last 6 months as per patient] who lives alone at home presented to the ED 02/19 with complaint of fall and found to have flu positive. Patient was feeling weak and fatigued. He slid from bed and fell down and he could not get up, he thinks he laid on the floor for 1 to 1 and half days and was finally able to call 911 and was brought in here. He is being managed for the following: Gangrene of great toe of right foot Patient reports that he ripped off the nail of the right foot about a month ago [employer]; wound gradually increased over the course of last month resulting in replacement of the toe with black eschar. hx of diabetic neuropathy with amputation of 5th toe of right foot ESR 43, CRP 13. MRI foot positive for acute osteomyelitis involving second toe proximal phalanx and head/neck of the second metatarsal. Possible septic arthritis involving the second MTP joint. c/w vancomycin, Zosyn 02/19. Podiatry on board, for amputation today. N.p.o. status, follow operative culture. Resume diet after sx. replete electrolytes. wound care consult after debridement/amputation ID consult after intervention. Generalized weakness Influenza A Patient presented with flulike symptoms, generalized tiredness/fatigue Respiratory viral panel positive for influenza A Chest x-ray does not show infiltrates Continue Tamiflu; treat for 5 days PT OT eval Pt reports strength getting better, cough and sore throat getting better. Elevated high sensitive troponin of undetermined significance in setting of influenza A high sensitivity elevated with no significant delta difference. Echo with EF. of 60-65%, grade I diastolic dysfunction, Left ventricle wall motion normal. Cardiology evaluated, appreciate recommendation. Monitor replete electrolytes. Elevated CPK: resolved. History of hypertension: Continue home metoprolol tartrate and triamterene/hydrochlorothiazide and potassium supplement. Will monitor Depression: On Zoloft Type 2 Diabetes on long-acting insulin 20 units nightly For now will place on insulin sliding scale and monitor a1c 6.4 this admisison needs to establish new PCP Full code dvt prophylaxis heparin, on hold for sx today. Updated patient's son Keyon at bedside, answered all his questions. Admission and Anticipated Discharge Date Admission Date: February 20, 2024 Subjective Patient was seen and examined at bedside. Patient was lying in bed, on 1L NC O2, NAD, resting comfortably. Patient reports eating okay, reports 1 BM today. Pt reports improving cough and denies any chest pain or sob. Pt is npo for sx today. pt's son at bedside who was also updated on plan of care. he voiced understanding. Pt denies fever, belly pain or new complaints. Physical Exam Physical Exam: Constitutional: Alert oriented x 3; not in distress. 1L NC O2. Respiratory: Bilateral vesicular breath sound, CTA Cardiovascular: RRR, no murmur, no edema Vessels: no JVD or carotid bruit Abdomen: normal bowel sounds, soft, nontender, no hepatosplenomegaly Musculoskeletal: Great toe of right foot with black eschar; spreading down the forefoot. Dorsalis pedis pulse intact. Amputated fifth toe on right foot. rt foot in dressing. No abnormality in left foot. Neurologic: PERRL, EOMI, accommodation nl, no face palsy, no dysarthria CN's II- XI intact bilaterally and moves all extremities Psychiatric: A+Ox3, euthymic affect Results & Data Results & Data Vital Signs (Past 12 Hours) Vital Signs Temp Pulse Pulse Resp BP Pulse Ox O2 Del Method 02/22/24 05:31 66 02/22/24 02:02 36.7 C 61 18 171/77 H 96 Room Air 02/22/24 00:41 36.9 C 58 L 18 144/70 H 94 Room Air 02/21/24 23:53 Room Air 02/21/24 21:40 70
--- NOTE | 2024-02-22 08:39 | History & Physical Bridge Note ---
Date of Service February 22, 2024 History & Physical Bridge Note I have examined the patient, reviewed the History & Physical and in the interval since the performance of the History & Physical I have noted the following changes of clinical significance: no changes noted. Plan for second ray resection. Consent obtained. All questions answered.
--- NOTE | 2024-02-22 08:40 | Electrocardiogram Report ---
Test Reason : Blood Pressure : */* mmHG Vent. Rate : 62 BPM Atrial Rate : 62 BPM P-R Int : 136 ms QRS Dur : 122 ms QT Int : 492 ms P-R-T Axes : 53 45 40 degrees QTcB Int : 499 ms Poor data quality, interpretation may be adversely affected Normal sinus rhythm with sinus arrhythmia Non-specific intra-ventricular conduction delay Nonspecific ST abnormality Anterolateral leads Abnormal ECG When compared with ECG of 21-Feb-2024 14:48, No significant change was found Confirmed by Antoine Cardona ([id number]) on 02/22/2024 8:39:15 AM Referred By: REFERRED SELF Confirmed By: Antoine Cardona
[2024-02-22] MEDS ORDERED: Nursing to Pharmacy Communication SCH (08:45)
--- NOTE | 2024-02-22 08:46 | Anesthesiology Consultation ---
Date of Service February 22, 2024 Assessment & Plan (1) Encounter for pre-operative examination: Chart Review Chart Review: Acceptable Risk for Surgery and Patient NOT seen in Pre Admission Testing Consults Requested none History Surgery Operation Date: 02/22/24 09:00 Proposed Procedures p Right Second Toe Amputation - Donato Oakes DPM Height/Weight Height: 5 ft 10 in Weight: 70 kg Allergies Allergy/AdvReac Type Severity Reaction Status Date / Time No Known Allergies Allergy Unverified 02/22/24 08:22 Medications Home Medications Medication Instructions Recorded Confirmed Last Taken insulin glargine 100 unit/mL (3 20 unit subcut UD 02/20/24 02/20/24 Unknown mL) subcutaneous pen (Basaglar KwikPen U-100 Insulin) metoprolol tartrate 100 mg tablet 100 mg PO BID 02/20/24 02/20/24 Unknown potassium chloride 20 mEq 20 meq PO BID 02/20/24 02/20/24 Unknown tablet,extended release(part/cryst) sertraline 50 mg tablet 50 mg PO BID 02/20/24 02/20/24 Unknown thiamine HCl (vitamin B1) 100 mg 100 mg PO DAILY 02/20/24 02/20/24 Unknown tablet triamterene 75 1 tab PO DAILY 02/20/24 02/20/24 Unknown mg-hydrochlorothiazide 50 mg tablet Active Medications Generic Name Dose Route Start Last Admin Trade Name Freq PRN Reason Stop Dose Admin Aspirin 81 mg 02/20/24 15:15 02/22/24 07:56 Aspirin 81 Mg Ectab PO 03/21/24 15:14 Not Given QAM ESTEFANI Heparin Sodium (Porcine) 5,000 units 02/20/24 21:00 02/21/24 21:11 Heparin Sod 5,000 Unit/0.5 Ml Vial SQ 03/21/24 20:59 5,000 units Q12 ESTEFANI Administration Hydroxyzine HCl 25 mg 02/21/24 07:44 02/21/24 08:30 Hydroxyzine Hcl 25 Mg Tab PO 03/22/24 07:43 25 mg Q8H PRN Administration Anxiety Piperacillin Sod/Tazobactam Sod 4.5 gm in 100 mls @ 25 mls/hr 02/20/24 22:00 02/22/24 05:49 Zosyn IV 04/02/24 21:59 25 mls/hr Q8H ESTEFANI Administration Protocol Vancomycin HCl 750 mg/ Sodium 265 mls @ 200 mls/hr 02/21/24 07:45 02/22/24 05:26 Chloride IV 04/03/24 03:59 Infused Q8H ESTEFANI Infusion Insulin Aspart 0 units 02/20/24 11:30 02/22/24 08:42 Insulin Aspart Per Unit Charge SC 03/21/24 11:29 Not Given ACHS ESTEFANI Lactobacillus Acidophilus 1,250 mg 02/21/24 15:30 02/22/24 07:56 Advanced Probiotic 625 Mg Capsule PO 03/22/24 15:29 Not Given DAILY ESTEFANI Metoprolol Tartrate 100 mg 02/20/24 10:33 02/22/24 08:07 Metoprolol Tartrate 100 Mg Tab PO 03/21/24 10:32 100 mg BID ESTEFANI Administration Oseltamivir Phosphate 75 mg 02/21/24 21:00 02/21/24 21:53 Oseltamivir Phosphate 75 Mg Cap PO 02/24/24 21:01 75 mg BID ESTEFANI Administration Potassium Chloride 20 meq 02/20/24 10:33 02/21/24 21:11 Potassium Chloride Crtab 20 Meq Tabcr PO 03/21/24 10:32 20 meq BID ESTEFANI Administration Potassium Phosphate 2 tab 02/21/24 09:00 02/22/24 08:05 Pot Phosphate Monobasic W/ Sod Tab PO 02/22/24 13:01 2 tab QID ESTEFANI Administration Psyllium Hydrophilic Mucilloid 4 gm 02/21/24 15:30 02/22/24 07:56 Psyllium Or Guar Gum Fiber 4gm Packet PO 03/22/24 15:29 Not Given QAM ESTEFANI Sertraline HCl 50 mg 02/20/24 10:33 02/22/24 07:57 Sertraline Hcl 50 Mg Tablet PO 03/21/24 10:32 Not Given BID ESTEFANI Thiamine HCl 100 mg 02/20/24 10:33 02/22/24 07:57 Thiamine Hcl 100 Mg Tab PO 03/21/24 10:32 Not Given DAILY ESTEFANI Triamterene/Hydrochlorothiazide 1 tab 02/20/24 10:33 02/21/24 08:31 Triamterene/Hctz 37.5/25mg Tab PO 03/21/24 10:32 1 tab DAILY ESTEFANI Administration NPO Date Last Intake of Fluids: 02/21/24 Time Last Intake of Fluids: 18:00 Date Last Intake of Solids: 02/21/24 Time Last Intake of Solids: 18:00 Social History Smoking Status: Current every day smoker Do You Dip or Chew Tobacco: No Hx Alcohol Use: No Hx Substance Use: No Physical Exam Vital Signs Last Vital Signs Temp 98.4 F 02/22/24 08:22 Pulse 69 02/22/24 08:22 Resp 20 02/22/24 08:22 BP 160/74 H 02/22/24 08:22 Pulse Ox 95 02/22/24 08:22 O2 Del Method Nasal Cannula 02/22/24 08:22 O2 Flow Rate 2 02/22/24 08:22 Testing Laboratory Results 02/22/24 06:27 02/22/24 06:27 Hemoglobin A1c 6.4 % (4.5-5.6) H 02/21/24 05:29 Urine Color Yellow 02/20/24 02:21 Urine Appearance Clear (Clear) 02/20/24 02:21 Urine pH 5.0 (4.5-7.5) 02/20/24 02:21 Ur Specific [place] 1.022 (1.000-1.030) 02/20/24 02:21 Urine Protein 1+ (Negative) H 02/20/24 02:21 Urine Glucose (UA) Negative (Negative) 02/20/24 02:21 Urine Ketones 2+ (Negative) H 02/20/24 02:21 Urine Nitrite Negative (Negative) 02/20/24 02:21 Ur Leukocyte Esterase Negative (Negative) 02/20/24 02:21 Urine WBC (Auto) 0-5 /hpf (0-5) 02/20/24 02:21 Urine RBC (Auto) 0-2 /hpf (0-2) 02/20/24 02:21 U Hyaline Cast (Auto) 6-10 /lpf (0-2) H 02/20/24 02:21 U Epithel Cells (Auto) 0-2 /hpf (0-2) 02/20/24 02:21 Urine Bacteria (Auto) None Seen (None Seen) 02/20/24 02:21 02/20/24 02:12 Aerobic Blood Culture - Preliminary Blood No growth in Aerobic bottle after 48 hours. Anaerobic Blood Culture - Preliminary No growth in Anaerobic bottle after 48 hours. 02/20/24 02:20 Aerobic Blood Culture - Preliminary Blood No growth in Aerobic bottle after 48 hours. Anaerobic Blood Culture - Preliminary No growth in Anaerobic bottle after 48 hours. 02/22/24 06:35 POC Glucose 101 H Electrocardiogram Date: 02/22/24 Normal sinus rhythm with sinus arrhythmia Non-specific intra-ventricular conduction delay Nonspecific ST abnormality Anterolateral leads Abnormal ECG
[2024-02-22] MEDS ORDERED: ONDANSETRON INJ 2 MG/ML 2 ML VIAL IV PRN (08:49)
[2024-02-22] MEDS ORDERED: fentaNYL citrate PF 100 MCG/2 ML VIAL IV PRN (08:49)
[2024-02-22] MEDS ORDERED: ePHEDrine sulfate 50 MG/ML AMP IV PRN (08:49)
[2024-02-22] MEDS ORDERED: ATROPINE SULFATE 0.1 MG/ML 10ML SYR IV PRN (08:49)
[2024-02-22] MEDS: BUPIVACAINE 0.5 % 5 MG/1 ML MPF 30ML VIAL ONE (09:00)
[2024-02-22] MEDS: LR 15ML/HR IV SCH (09:05)
--- NOTE | 2024-02-22 09:28 | Post Operative Brief Note ---
Immediate Post Op Note Date of Surgery February 22, 2024 Pre & Post Diagnosis Preoperative diagnosis: Right second toe gangrene Postoperative diagnosis: Same I identified the patient and participated in the time-out.: Yes Procedure Right second ray resection Surgeon DALE GuevaraM [employer] None Estimated Blood Loss 2 Findings Consistent with Post-Op Diagnosis Specimens Right toe permanent specimen Right second metatarsal proximal margin Right second toe bone culture Anesthesia Type MAC Complications none Disposition Accompanied Patient To Recovery: Yes Disposition: Recovery Room
--- NOTE | 2024-02-22 10:10 | Anesthesiology Progress Note ---
Date of Service February 22, 2024 Anesthesia Post Procedure Vital Signs Vital Signs: Temp Pulse Pulse Pulse Resp BP BP 02/22/24 10:00 57 L 18 144/75 H 02/22/24 09:50 60 16 161/98 H 02/22/24 09:40 53 L 13 136/72 02/22/24 09:33 97.7 F 54 L 12 134/67 02/22/24 08:22 98.4 F 69 20 160/74 H 02/22/24 05:31 66 02/22/24 02:02 98.1 F 61 18 171/77 H 02/22/24 00:41 98.4 F 58 L 18 144/70 H 02/21/24 23:53 02/21/24 21:40 70 02/21/24 19:11 98.1 F 59 L 59 L 16 147/73 H 02/21/24 15:45 97.9 F 91 H 20 125/61 02/21/24 14:54 51 L 02/21/24 11:51 97.5 F L 54 L 18 145/73 H Pulse Ox O2 Del Method O2 Flow Rate 02/22/24 10:00 92 Room Air 02/22/24 09:50 94 Room Air 02/22/24 09:40 99 Oxymask 5 02/22/24 09:33 98 Oxymask 5 02/22/24 08:22 95 Nasal Cannula 2 02/22/24 05:31 02/22/24 02:02 96 Room Air 02/22/24 00:41 94 Room Air 02/21/24 23:53 Room Air 02/21/24 21:40 02/21/24 19:11 92 Room Air 02/21/24 15:45 94 Room Air 02/21/24 14:54 02/21/24 11:51 93 Room Air Transfer of Care Handoff Completed per policy Notes Mental Status: alert / awake / arousable and participated in evaluation Patient Amnestic to Procedure: Yes Nausea / Vomiting: adequately controlled Pain: adequately controlled Airway Patency, RR, SpO2: stable & adequate BP & HR: stable & adequate Hydration State: stable & adequate Anesthetic Complications: no major complications apparent and Pt Satisfied with anesthetic care
[2024-02-22] MEDS: VANCOMYCIN LEVEL ONE (11:31)
--- NOTE | 2024-02-22 12:17 | Pharmacy Report ---
Pharmacy PK ABX Note - Date of Service February 22, 2024 - Assessment and Plan Assessment 02/22/24 -Patients random level came back at 11.5; extrapolating into [facility], patients AUC at steady steady is calculated at 470, within the goal range of 400-600 -Continue current dosing of 750 mg q8h -Pharmacy to continue to follow and order labs as needed 02/21/24 78 year old M receiving vancomycin for treatment of possible gangrene/osteomyelitis of R foot. PMH includes HTN, DM requiring insulin, past amputation of 5th toe on right foot, current influenza A infx. Blood cultures show no growth @24hours. Day # 2 of antimicrobial therapy. Plan Vancomycin * Current regimen: 750 mg IV every 8 hours * Random level obtained 02/22/24 resulted as 11.5 mcg/mL. This is predicted to achieve target AUC/OLIVERIO of 400-600 mg/L.hr * Predicted AUC at steady state: 470 mg/L.hr * Continue 750 mg IV every 8 hours * Repeat random level ordered for: order for 02/24/24 Piperacillin/tazobactam 4.5g q8h Pharmacy will continue to follow and will adjust dose/frequency as necessary. Thank you. Pharmacy has transitioned to AUC monitoring for vancomycin. AUC/OLIVERIO is the preferred PK/PD target and is associated with decreased risk of nephrotoxicity compared to traditional trough targets.
--- NOTE | 2024-02-22 12:34 | Cardiology Progress Note ---
Date of Service February 22, 2024 Assessment & Plan (1) Influenza: (2) Weakness: (3) Elevated troponin: (4) Abnormal EKG: (5) Prolonged QT interval: (6) Acute osteomyelitis of right foot: Plan 02/20/24: Patient admitted with diffuse weakness, having been on the floor of his apa rtment for 1-2 days and unable to get up. He was diagnosed with influenza A. Head CT without acute process. Chronic microvascular changes noted. Found to be dehydrated and treated with IV fluids. Mildly elevated HS troponin noted at 69 - 84 - 65 No chest pain reported. EKG with mild diffuse ST wave abnormalities Echo with preserved LVEF, no wall motion abnormalities. Elevated CK also noted, likely in setting of muscle injury from weakness and laying on the floor. Mild case of rhabdo. IV fluids recommended. No prior cardiac history. Elevated troponin in setting of acute illness and demand ischemic event. Findings not indicative of ACS. He does have risk factors for ischemic heart disease. Recommend adding ASA 81 mg daily. Patient already taking outpatient beta florecita - Metoprolol tartrate 100 mg BID. Add statin once weakness and CK levels improve. 02/21/24: Patient treated for influenza A Now diagnosed with right foot/toe osteomyelitis requiring amputation of the right 2nd toe. Scheduled for tomorrow. Elevated troponin on admission with preserved LVEF on echo. No wall motion abnormalities No symptoms to suggest angina. Continue ASA, metoprolol. Add statin when CK returns to normal. Continue IV fluids. Supplement potassium and magnesium to keep potassium 4-5 and magnesium > 2.0 He was found to have prolonged QT on EKG this morning - Recheck - If remains prolonged may need to adjust Zoloft dose? 02/22/24: Patient seen post op right 2nd toe amputation secondary to gangrene and osteomyelitis. Tolerated procedure. Continue antibiotics. Blood cultures remain negative continue supportive care for influenza. SOB improving and cough improving. Elevated troponin on admission with preserved LVEF. no wall motion abnormalities. No chest pain. Risk factors for ischemic heart disease. Continue ASA. Start statin - crestor 10 mg daily. CK levels normalized. continue oral metoprolol (home dose) Supplement potassium and magnesium Monitor QT interval. Improving today. Avoid QT prolonging agents (antibiotics) Likely will benefit from ischemic work up as outpatient once his current issues have improved. No further inpatient cardiac testing warranted at this time. Will sign off. Please contact restaurant front manager cardiology provider with additional questions or concerns. Case discussed with Dr. Amaya I spent a total of 30 minutes on the date of service in preparation, delivery, and documentation of the care provided to this patient, excluding any time spent in the performance of separately billed services. Libby Erickson PA-C Department of Cardiology, [facility] This chart was completed in part utilizing Speech Voice Recognition Software. Grammatical errors, random word insertions, pronoun errors, and incomplete sentences are an occasional consequence of this system due to software limitations, ambient noise, and hardware issues. Any formal questions or concerns about the content, text, or information contained within the body of this dictation should be directly addressed to the provider for clarification. Admission and Anticipated Discharge Date Admission Date: February 20, 2024 Supervising Physician Co-Signing Physician Notes I have personally performed a history and physical examination on the patient. I have reviewed the advance practitioner's documentation, and I agree with, and take responsibility for the plan of care. 78-year-old male presenting with diffuse weakness being found on the floor for approximately 48 hours. Diagnosed with influenza A. Abnormal ECG (chronicity unknown), and mildly elevated high-sensitivity troponin remains flat. No anginal symptoms prior to admission. No regional wall motion abnormality per echocardiogram. Toe amputation performed earlier today without complication. Continue metoprolol, aspirin, and statin therapy. Avoid medication with potential to prolong QT interval. Cardiology will sign off. Please call with any further concerns/questions. I spent a total of 25 minutes on the date of service in preparation, delivery, and documentation of the care provided to this patient, excluding any time spent in the performance of separately billed services. Warren Amaya DO, [facility] Subjective Patient resting in bed comfortably post op toe amputation. tolerated procedure. He reports ongoing cough but improved. No chest pain. No orthopnea, PND or edema. No dizziness. Review of Systems Review of Systems: All systems reviewed & are unremarkable except as noted in HPI & below Physical Exam Constitutional: WD/WN, vitals as above + thin; no acute distress Neck: trachea midline, no thyromegaly Respiratory: no respiratory distress Auscultation: + diminished lung sounds and + wheezes Cardiovascular: Rate/Rhythm: regular rate and regular rhythm Heart Sounds: no murmur Vessels: no JVD Extremities: no edema (right toes wrapped ) Gastrointestinal (Abdomen): normal bowel sounds, soft, nontender, no hepatosplenomegaly Musculoskeletal: no cyanosis or clubbing, extremities motor strength 5/5 Results & Data Vital Signs (Past 12 Hours) Vital Signs Temp Pulse Pulse Pulse Resp BP Pulse Ox 02/22/24 10:54 02/22/24 10:50 36.7 C 55 L 18 165/90 H 94 02/22/24 10:10 36.7 C 55 L 17 157/87 H 92 02/22/24 10:00 57 L 18 144/75 H 92 02/22/24 09:50 60 16 161/98 H 94 02/22/24 09:40 53 L 13 136/72 99 02/22/24 09:33 36.5 C 54 L 12 134/67 98 02/22/24 08:22 36.9 C 69 20 160/74 H 95 02/22/24 05:31 66 02/22/24 02:02 36.7 C 61 18 171/77 H 96 02/22/24 00:41 36.9 C 58 L 18 144/70 H 94 O2 Del Method O2 Flow Rate 02/22/24 10:54 Room Air, Nasal Cannula 2 02/22/24 10:50 Nasal Cannula 2 02/22/24 10:10 Room Air 02/22/24 10:00 Room Air 02/22/24 09:50 Room Air 02/22/24 09:40 Oxymask 5 02/22/24 09:33 Oxymask 5 02/22/24 08:22 Nasal Cannula 2 02/22/24 05:31 02/22/24 02:02 Room Air 02/22/24 00:41 Room Air Laboratory Results CBC 02/22/24 Range/Units 06:27 WBC 5.59 (4.8-10.8) K/ul RBC 4.74 (4.70-6.10) M/uL Hgb 13.7 L (14.0-18.0) g/dl Hct 40.4 L (42.0-52.0) % Plt Count 110 L (130-400) K/uL Comprehensive Metabolic Panel 02/22/24 Range/Units 06:27 Sodium 139 (136-145) mmol/L Potassium 3.2 L (3.5-5.1) mmol/L Chloride 105 (98-107) mmol/L Carbon Dioxide 26 (21-32) mmol/L BUN 10 (6-23) mg/dl Creatinine 0.66 (0.6-1.4) mg/dl Glucose 107 H (70-99(Fasting)) mg/dl Calcium 8.0 L (8.6-10.3) mg/dl Intake and Output 02/21/24 02/22/24 02/22/24 22:59 06:59 14:59 Intake Total 515 / 2440 365 / 2440 300 / 300 Output Total 250 / 1476 875 / 1476 102 / 102 Balance 265 / 964 -510 / 964 198 / 198 Intake: IV 365 / 2290 365 / 2290 100 / 100 Piperacillin/Tazobactam 4.5 gm 100 / 300 100 / 300 100 / 100 In 100 ml @ 25 mls/hr IV Q8H [facility] Rx#:[id number] Vancomycin HCl 750 mg In Sodium 265 / 795 265 / 795 Chloride 0.9% 250 ml @ 200 mls /hr IV Q8H [facility] Rx#:[id number] IV Perioperative 200 / 200 Oral 150 / 150 Output: Urine 875 / 1225 100 / 100 Estimated Blood Loss 2 / 2 Urine Amount (Catheter) 250 / 250 External 250 / 250 Other: Other Intake Source npo Weight 70 kg 70 kg Patient Weight 02/23/24 06:59 Weight 70 kg Diagnostic Findings Telemetry reviewed: NSR, no arrhythmias EKG reviewed from this morning: NSR Low voltage QRS non specific ST abnormality QT/QTc improving - 492/499 ms Medications Administered Current Inpatient Medications Acetaminophen (Acetaminophen 325 Mg Tab) 650 mg PO Q4H PRN PRN Reason: Pain or Fever Stop: 03/21/24 10:32 Aspirin (Aspirin 81 Mg Ectab) 81 mg PO QAM [facility] Stop: 03/21/24 15:14 Last Admin: 02/22/24 07:56 Dose: Not Given Atropine Sulfate (Atropine Sulfate 0.1 Mg/Ml 10ml Syr) 0.5 mg IV Q1M PRN PRN Reason: PACU Use-HR<40 &/or Bradycardi Stop: 02/22/24 16:49 Dextrose (Dextrose 50% 50 Ml Syringe) 25 - 50 ml IV UD PRN; Protocol PRN Reason: Hypoglycemia Protocol Stop: 03/21/24 10:32 Ephedrine Sulfate (Ephedrine Sulfate 50 Mg/Ml Amp) 5 mg IV Q5M PRN PRN Reason: PACU Use Only-SBP<90 mmHg Stop: 02/22/24 16:49 Fentanyl Citrate (Fentanyl Citrate Pf 100 Mcg/2 Ml Vial) 25 mcg IV Q5M PRN PRN Reason: PACU Use Only-Pain Stop: 02/22/24 16:49 Glucagon (Glucagon For Inj 1 Mg Vial) 1 mg SQ UD PRN; Protocol PRN Reason: Hypoglycemia Protocol Stop: 03/21/24 10:32 Glucose (Glucose 40% Gel 15 Gm Tube) 15 - 30 gm PO UD PRN; Protocol PRN Reason: Hypoglycemia Protocol Stop: 03/21/24 10:32 Glucose (Glucose 10 Tab/Tube) 4 - 8 tab PO UD PRN; Protocol PRN Reason: Hypoglycemia Protocol Stop: 03/21/24 10:32 Heparin Sodium (Porcine) (Heparin Sod 5,000 Unit/0.5 Ml Vial) 5,000 units SQ Q12 [facility] Stop: 03/21/24 20:59 Last Admin: 02/21/24 21:11 Dose: 5,000 units Hydroxyzine HCl (Hydroxyzine Hcl 25 Mg Tab) 25 mg PO Q8H PRN PRN Reason: Anxiety Stop: 03/22/24 07:43 Last Admin: 02/21/24 08:30 Dose: 25 mg Piperacillin Sod/Tazobactam Sod (Zosyn) 4.5 gm in 100 mls @ 25 mls/hr IV Q8H [facility]; Protocol Stop: 04/02/24 21:59 Last Infusion: 02/22/24 10:34 Dose: Infused Vancomycin HCl 750 mg/ Sodium (Chloride) 265 mls @ 200 mls/hr IV Q8H [facility] Stop: 04/03/24 03:59 Last Infusion: 02/22/24 05:26 Dose: Infused Lactated Ringer's (Lr) 1,000 mls @ 15 mls/hr IV .Q24H [facility] Stop: 02/23/24 05:59 Last Admin: 02/22/24 09:05 Dose: Not Given Insulin Aspart (Insulin Aspart Per Unit Charge) 0 units SC ACHS [facility] Stop: 03/21/24 11:29 Last Admin: 02/22/24 12:35 Dose: Not Given Lactobacillus Acidophilus (Advanced Probiotic 625 Mg Capsule) 1,250 mg PO DAILY [facility] Stop: 03/22/24 15:29 Last Admin: 02/22/24 07:56 Dose: Not Given Levalbuterol HCl (Levalbuterol 1.25 Mg/3 Ml Neb) 1.25 mg NEB Q4R PRN PRN Reason: Shortness Of Breath Or Wheezing Stop: 03/21/24 10:32 Levalbuterol HCl (Levalbuterol Tartrate 15 Gm Hfa.Aer.Ad) 2 puffs INH QIDR PRN PRN Reason: Shortness Of Breath Or Wheezin Stop: 03/21/24 10:32 Metoprolol Tartrate (Metoprolol Tartrate 100 Mg Tab) 100 mg PO BID [facility] Stop: 03/21/24 10:32 Last Admin: 02/22/24 08:07 Dose: 100 mg Miscellaneous (Carbohydrates For Hypoglycemia ) 15 - 30 gm PO UD PRN PRN Reason: Hypoglycemia Protocol Stop: 03/21/24 10:32 Miscellaneous Information (Vancomycin Consult Active) 1 each N/A UD PRN PRN Reason: Consult Stop: 03/21/24 15:23 Nitroglycerin (Nitroglycerin Sl 0.4 Mg/Tab Tab) 0.4 mg SL Q5M PRN PRN Reason: Chest Pain Stop: 03/21/24 10:32 Ondansetron HCl (Ondansetron Inj 2 Mg/Ml 2 Ml Vial) 4 mg IV ONCE PRN PRN Reason: PACU Use Only-Nausea/Vomiting Stop: 02/22/24 16:49 Oseltamivir Phosphate (Oseltamivir Phosphate 75 Mg Cap) 75 mg PO BID [facility] Stop: 02/24/24 21:01 Last Admin: 02/22/24 09:05 Dose: Not Given Oxycodone HCl (Oxycodone Hcl Ir 5 Mg Tab (Immediate Release)) 5 mg PO Q4H PRN PRN Reason: modeate to severe pain Stop: 03/07/24 12:29 Last Admin: 02/22/24 12:45 Dose: 5 mg Potassium Chloride (Potassium Chloride Crtab 20 Meq Tabcr) 20 meq PO BID [facility] Stop: 03/21/24 10:32 Last Admin: 02/22/24 09:06 Dose: 20 meq Potassium Phosphate (Pot Phosphate Monobasic W/ Sod Tab) 2 tab PO QID [facility] Stop: 02/22/24 13:01 Last Admin: 02/22/24 08:05 Dose: 2 tab Psyllium Hydrophilic Mucilloid (Psyllium Or Guar Gum Fiber 4gm Packet) 4 gm PO QAM [facility] Stop: 03/22/24 15:29 Last Admin: 02/22/24 07:56 Dose: Not Given Rosuvastatin Calcium (Rosuvastatin Calcium 10 Mg Tab) 10 mg PO QAM [facility] Stop: 03/24/24 08:59 Sertraline HCl (Sertraline Hcl 50 Mg Tablet) 50 mg PO BID [facility] Stop: 03/21/24 10:32 Last Admin: 02/22/24 07:57 Dose: Not Given Thiamine HCl (Thiamine Hcl 100 Mg Tab) 100 mg PO DAILY [facility] Stop: 03/21/24 10:32 Last Admin: 02/22/24 07:57 Dose: Not Given Triamterene/Hydrochlorothiazide (Triamterene/Hctz 37.5/25mg Tab) 1 tab PO DAILY [facility] Stop: 03/21/24 10:32 Last Admin: 02/22/24 09:06 Dose: Not Given
[2024-02-22] MEDS: oxyCODONE HCL IR 5 MG TAB (IMMEDIATE RELEASE) PO PRN (12:45)
[2024-02-22] MEDS: INFLUENZA VACC TS2024-25(65y+)/PF (IIV3) 0.5mL Syr IM ONE (13:31)
[2024-02-22] MEDS: PNEUMOCOCCAL VACCINE (PCV20) 20-VAL CONJ-DIP CRM/PF 0.5 ML SYR IM ONE (13:32)
[2024-02-23 07:02] LABS: Hematocrit (blood only) 40.2 % (42.0-52.0); Hemoglobin 13.6 g/dl (14.0-18.0); Mean Corpuscular Hemoglobin 28.9 pg (25.0-34.0); Mean Corpuscular Hgb Conc 33.8 g/dL (32.0-36.0); Mean Corpuscular Volume 85.4 fL (80.0-100.0); Mean Platelet Volume 9.6 fL (9.4-12.4); Platelet Count 111 K/uL (130-400); RDW Coefficient of Variation 12.8 % (11.5-14.5); Red Blood Count 4.71 M/uL (4.70-6.10); White Blood Count 4.74 K/ul (4.8-10.8)
[2024-02-23 07:20] LABS: BUN Creatinine Ratio 12.5 (10-20); Calcium 7.9 mg/dl (8.6-10.3); Creatinine Clr Calc Pharmacy 114.1 ml/min; Magnesium 1.7 mg/dl (1.7-2.4); Phosphorus 2.4 mg/dl (2.5-4.9); Potassium 3.3 mmol/L (3.5-5.1)
[2024-02-23] MEDS: POTASSIUM CHLORIDE CRTAB 20 MEQ TABCR PO STA (08:05)
[2024-02-23] MEDS: ROSUVASTATIN CALCIUM 10 MG TAB PO SCH (08:07)
[2024-02-23] MEDS: MAGNESIUM SULFATE / D5W 1 GM/100 ML BAG IV ONE (08:17)
--- NOTE | 2024-02-23 10:56 | Infectious Disease Consult ---
Date of Service February 23, 2024 Telehealth Information I performed this visit using a real-time telehealth connection between my location and the patients location ([facility]). After connecting through interactive tele-video, patient was identified by name and date of and/or wristband check.Patient (or authorized healthcare sales representative printing supplies) was informed that this was a telemedicine visit and it was being conducted confidentially over secure lines. My office door was closed and no one else was present in the room with me.Patient (or authorized healthcare sales representative printing supplies) provided consent to proceed with the visit, expressed an understanding of privacy and security of the telemedicine visit, and gave permission to have a hospital sales representative printing supplies in the room in order to assist with the visit and to conduct portions of the visit, as needed. I informed the patient (or authorized healthcare sales representative printing supplies) that I reviewed their record and presented the opportunity for them to ask any questions regarding the visit today. The patient agreed to participate. Assessment & Plan (1) Gangrene of right foot: Plan: s/p second ray resection (2) Acute osteomyelitis of right foot: Plan: If source control has not been acheived would recommend terminal worker antibiotics based on his final culture results Plan Recommend continuing zosyn and vancomycin pending finalization of his wound cultures .If the staph aureus is MSSA can discontinue vancomycin and if source control has not been obtained he will require at least 6 weeks of antibiotics .Thank you for allowing us to participate in the care of this patient ID will continue to follow History of Present Illness History of Present Illness 78-year-old male [facility] infection for 2 months , hypertension, diabetes, depression, ongoing tobacco use, history of heavy alcohol use and no drinking since last 6 months as per patient, who lives alone at home presented to the ER due to a fall and was found to be influenza A positive. Patient reported he was feeling weak and fatigued and slipped from the bed and fell down and could not get up. He thinks he lay on the floor for 1-1/2-day. He was finally was able to call 911 and was brought to [facility] ER. A CT of his right foot revealed possible osteomyelitis of 2nd toe .He was evaluated by podiatry with right second toe gangrene and taken to the OR for right second ray resection .His wound cultures have grown staph aureus and strep agalactiae and he is on zosyn and vancomycin Allergies Allergy/AdvReac Type Severity Reaction Status Date / Time No Known Allergies Allergy Unverified 02/22/24 08:22 Home Medications Medication Instructions Recorded Confirmed Type insulin glargine 100 unit/mL (3 20 unit subcut UD 02/20/24 02/20/24 History mL) subcutaneous pen (Basaglar KwikPen U-100 Insulin) metoprolol tartrate 100 mg tablet 100 mg PO BID 02/20/24 02/20/24 History potassium chloride 20 mEq 20 meq PO BID 02/20/24 02/20/24 History tablet,extended release(part/cryst) sertraline 50 mg tablet 50 mg PO BID 02/20/24 02/20/24 History thiamine HCl (vitamin B1) 100 mg 100 mg PO DAILY 02/20/24 02/20/24 History tablet triamterene 75 1 tab PO DAILY 02/20/24 02/20/24 History mg-hydrochlorothiazide 50 mg tablet Patient History Social History Smoking Status: Current every day smoker Tobacco Type: Cigarettes Do You Dip or Chew Tobacco: No; Tobacco Cessation Education Requested by Patient: No Hx Alcohol Use: No Hx Substance Use: No Preferred Language: Swedish Communication Ability: Effective Assistant Finance Director Required: No Beliefs That Will Affect Care: None Current Living Situation: Alone Other Information That Helps Us Care for You: No Feels Safe at Home: Yes Safety Concerns: Feels Safe At This Time Assistive Devices: Cane Review of Systems No respiratory distress Physical Exam awake alert oriented ,no respiratory distress Results & Data Vital Signs (Past 12 Hours) Vital Signs Temp Pulse Pulse Resp BP BP Pulse Ox 02/23/24 10:31 02/23/24 07:46 36.8 C 74 20 159/89 H 93 02/23/24 07:06 73 02/23/24 02:12 36.8 C 66 18 177/76 H 91 02/22/24 23:29 O2 Del Method 02/23/24 10:31 Room Air 02/23/24 07:46 Room Air 02/23/24 07:06 02/23/24 02:12 Room Air 02/22/24 23:29 Room Air Laboratory Results Aero/Bambi Cult Preliminary 02/23/24-1103 Organism 1 Staphylococcus aureus Quantity Many Sens Sensitivities to Follow Organism 2 Strep agalactiae (group B) Quantity Moderate Sens Sensitivities to Follow Diagnostic Findings Impression: 1. Fracture of the head of the second toe proximal phalanx 2. Possible acute osteomyelitis involving the second toe proximal phalanx and the head and neck of the second metatarsal 3. Possible septic arthritis involving the second MTP joint 4. 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
--- NOTE | 2024-02-23 11:42 | Hospitalist Progress Note ---
Date of Service February 23, 2024 Assessment & Plan (1) Gangrene of right foot: Plan 78-year-old male who recently moved from [place], with PMH of HTN, DM, depression, ongoing tobacco use, heavy alcohol use [no drinking since last 6 months as per patient] who lives alone at home presented to the ED 02/19 with complaint of fall and found to have flu positive. Patient was feeling weak and fatigued. He slid from bed and fell down and he could not get up, he thinks he laid on the floor for 1 to 1 and half days and was finally able to call 911 and was brought in here. He is being managed for the following: Gangrene of great toe of right foot Patient reports that he ripped off the nail of the right foot about a month ago [employer] PORT[employer]EL[employer]; wound gradually increased over the course of last month resulting in replacement of the toe with black eschar. hx of diabetic neuropathy with amputation of 5th toe of right foot ESR 43, CRP 13. MRI foot positive for acute osteomyelitis involving second toe proximal phalanx and head/neck of the second metatarsal. Possible septic arthritis involving the second MTP joint. c/w vancomycin, Zosyn 02/19. Podiatry on board, s/p Right Second Ray Amputation 02/21 follow operative culture. c/w pain Mx. replete electrolytes. WOCN on board. ID consult pending. f/u podiatry on dc. Generalized weakness Influenza A Patient presented with flulike symptoms, generalized tiredness/fatigue Respiratory viral panel positive for influenza A Chest x-ray does not show infiltrates Continue Tamiflu; treat for 5 days PT OT eval Pt reports strength getting better, cough and sore throat getting better. loose stool is better. Elevated high sensitive troponin of undetermined significance in setting of influenza A high sensitivity elevated with no significant delta difference. Echo with EF. of 60-65%, grade I diastolic dysfunction, Left ventricle wall motion normal. Cardiology evaluated, appreciate recommendation. c/w crestor, OP ischemic w/u. Monitor replete electrolytes. Elevated CPK: resolved. History of hypertension: Continue home metoprolol tartrate and triamterene/h ydrochlorothiazide and potassium supplement. Will monitor Depression: On Zoloft Type 2 Diabetes on long-acting insulin 20 units nightly For now will place on insulin sliding scale and monitor a1c 6.4 this admisison needs to establish new PCP Full code dvt prophylaxis heparin Admission and Anticipated Discharge Date Admission Date: February 20, 2024 Subjective Patient was seen and examined at bedside. Patient was lying in bed, on RA, NAD, resting comfortably. Patient reports eating okay, reports improvement in loose stool since last evening. Pt reports improving cough and denies any chest pain or sob. Pt denies fever, belly pain or new complaints. Pt reports operative site pain under control w/ medication. Physical Exam Physical Exam: Constitutional: Alert oriented x 3; not in distress. RA Respiratory: Bilateral vesicular breath sound, CTA Cardiovascular: RRR, no murmur, no edema Vessels: no JVD or carotid bruit Abdomen: normal bowel sounds, soft, nontender, no hepatosplenomegaly Musculoskeletal: Rt forefoot dressing c/d/i. Neurologic: PERRL, EOMI, accommodation nl, no face palsy, no dysarthria CN's II- XI intact bilaterally and moves all extremities Psychiatric: A+Ox3, euthymic affect Results & Data Results & Data Vital Signs (Past 12 Hours) Vital Signs Temp Pulse Pulse Resp BP BP Pulse Ox 02/23/24 11:09 36.5 C 62 20 148/77 H 91 02/23/24 10:31 02/23/24 07:46 36.8 C 74 20 159/89 H 93 02/23/24 07:06 73 02/23/24 02:12 36.8 C 66 18 177/76 H 91 O2 Del Method 02/23/24 11:09 Room Air 02/23/24 10:31 Room Air 02/23/24 07:46 Room Air 02/23/24 07:06 02/23/24 02:12 Room Air
--- NOTE | 2024-02-23 16:18 | Ultrasound Report ---
BILATERAL LOWER EXTREMITY ARTERIAL DOPPLER ULTRASOUND CLINICAL HISTORY: Ischemia of limbs COMPARISON STUDY: No previous studies for comparison. TECHNIQUE: Color and duplex Doppler sonography of the arterial systems of both lower extremities was performed. Due to pain, ankle to brachial indices could not be obtained. FINDINGS: There is extensive atherosclerotic plaque within both lower extremities. There is biphasic flow within the right common femoral artery. Extensive thrombus within the right superficial femoral artery is noted. This vessel is largely occluded. There is trace flow within portions of the right tucker perficial femoral artery. There is markedly dampened, monophasic flow within the right popliteal, pos terior tibial, peroneal and anterior tibial arteries. The right dorsalis pedis is occluded. Biphasic flow within left common femoral, superficial femoral and popliteal arteries is noted. There are no elevated velocities. There is dampened, monophasic flow within the left calf vessels with reve rsal flow within portions of the left anterior tibial artery. IMPRESSION: 1. Extensive atherosclerotic plaque within the bilateral lower extremities. 2. 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 Findings will be called/faxed to the ordering provider at time of dictation. 3. Significantly diminished monophasic flow within the lateral calf vessels, right more severe than l eft. ACT 112: Negative or not required by law. Electronically signed by: Bigg Ha M.D. 02/23/2024 3:23 PM
[2024-02-23 16:27] LABS: Adenovirus F 40/41 PCR Not Detected (NotDetected); Astrovirus PCR Not Detected (NotDetected); Campylobacter PCR Not Detected (NotDetected); Cryptosporidium PCR Not Detected (NotDetected); Cyclospora cayetanensis PCR Not Detected (NotDetected); Entamoeba histolytica PCR Not Detected (NotDetected); Enteroaggregative E.coli(EAEC) Not Detected (NotDetected); Enteropathogenic E.coli (EPEC) Not Detected (NotDetected); Enterotoxigenic E.coli (ETEC) Not Detected (NotDetected); Giardia lamblia PCR Not Detected (NotDetected); Norovirus GI/GII PCR Not Detected (NotDetected); Plesiomonas shigelloides PCR Not Detected (NotDetected); Rotavirus A PCR Not Detected (NotDetected); Salmonella PCR Not Detected (NotDetected); Sapovirus PCR Not Detected (NotDetected); Shiga-like Toxin E.coli (STEC) Not Detected (NotDetected); Shigella/Enteroinvasive E.coli Not Detected (NotDetected); Vibrio cholerae PCR Not Detected (NotDetected); Vibrio species PCR Not Detected (NotDetected); Yersinia enterocolitica PCR Not Detected (NotDetected)
[2024-02-23] MEDS: HEPARIN 25000 UNIT/500 ML 25,000 UNITS/500 ML BAG IV SCH (17:35)
[2024-02-23] MEDS: LOPERAMIDE HCL 2 MG CAP PO PRN (17:35)
[2024-02-23 17:36] LABS: Basophils # (auto) 0.02 K/uL (0.00-0.20); Basophils % (auto) 0.4 %; Eosinophils # (auto) 0.05 K/uL (0.00-0.50); Eosinophils % (auto) 0.9 %; Hematocrit (blood only) 39.2 % (42.0-52.0); Hemoglobin 13.4 g/dl (14.0-18.0); Immature Granulocytes # (auto) 0.02 K/uL (0.01-0.20); Immature Granulocytes % (auto) 0.4 %; Lymphocytes # (auto) 1.02 K/uL (1.20-3.40); Lymphocytes % (auto) 18.1 %; Mean Corpuscular Hemoglobin 28.9 pg (25.0-34.0); Mean Corpuscular Hgb Conc 34.2 g/dL (32.0-36.0); Mean Corpuscular Volume 84.7 fL (80.0-100.0); Mean Platelet Volume 10.1 fL (9.4-12.4); Monocytes # (auto) 0.37 K/uL (0.11-0.59); Monocytes % (auto) 6.6 %; Neutrophils # (auto) 4.14 K/uL (1.40-6.50); Neutrophils % (auto) 73.6 %; Platelet Count 121 K/uL (130-400); RDW Coefficient of Variation 13.2 % (11.5-14.5); RDW Standard Deviation 40.3 fL (36.4-46.3); Red Blood Count 4.63 M/uL (4.70-6.10); White Blood Count 5.62 K/ul (4.8-10.8)
[2024-02-23] MEDS: Heparin IV Adult Wt-Based Low-Dose *NO* INITIAL Bolus Protocol IV STA (17:52)
[2024-02-23 18:03] LABS: INR 1.1 (0.9-1.1); Partial Thromboplastin Ratio 1.3; Partial Thromboplastin Time 34 Seconds (21-31); Prothrombin Time 11.4 Seconds (9.0-12.0)
[2024-02-24 00:11] LABS: ANTI-Xa, UFH(UnfractionatedHep 0.22 IU/ml (0.3-0.7)
[2024-02-24] MEDS: ACETAMINOPHEN 325 MG TAB PO PRN (00:22)
[2024-02-24 06:38] LABS: Hematocrit (blood only) 39.3 % (42.0-52.0); Hemoglobin 13.5 g/dl (14.0-18.0); Mean Corpuscular Hemoglobin 29.5 pg (25.0-34.0); Mean Corpuscular Hgb Conc 34.4 g/dL (32.0-36.0); Mean Platelet Volume 9.6 fL (9.4-12.4); Platelet Count 131 K/uL (130-400); Red Blood Count 4.57 M/uL (4.70-6.10); White Blood Count 5.65 K/ul (4.8-10.8)
[2024-02-24 06:58] LABS: ANTI-Xa, UFH(UnfractionatedHep 0.23 IU/ml (0.3-0.7)
[2024-02-24 07:02] LABS: BUN Creatinine Ratio 11.3 (10-20); Calcium 8.1 mg/dl (8.6-10.3); Chol HDL Ratio 4.9 (0-5); Creatinine Clr Calc Pharmacy 88.3 ml/min; Magnesium 1.9 mg/dl (1.7-2.4); Phosphorus 2.2 mg/dl (2.5-4.9); Potassium 3.9 mmol/L (3.5-5.1)
[2024-02-24] MEDS: POT PHOSPHATE MONOBASIC W/ SOD TAB PO SCH (10:14)
--- NOTE | 2024-02-24 14:00 | Hospitalist Progress Note ---
Date of Service February 24, 2024 Assessment & Plan (1) Gangrene of right foot: Plan 78-year-old male who recently moved from [place], with PMH of HTN, DM, depression, ongoing tobacco use, heavy alcohol use [no drinking since last 6 months as per patient] who lives alone at home presented to the ED 02/19 with complaint of fall and found to have flu positive. Patient was feeling weak and fatigued. He slid from bed and fell down and he could not get up, he thinks he laid on the floor for 1 to 1 and half days and was finally able to call 911 and was brought in here. 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 hx of diabetic neuropathy with amputation of 5th toe of right foot ESR 43, CRP 13. MRI foot positive for acute osteomyelitis involving second toe proximal phalanx and head/neck of the second metatarsal. Possible septic arthritis involving the second MTP joint. 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 BLE extensive atherosclerotic disease. 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 Continue with Crestor. Discussed with vascular surgery afternoon of 02/22 for thrombosis of right superficial femoral artery, recommendation was heparin drip and the plan to eval him on Monday. Started on vancomycin [02/19 - 02/22], Zosyn 02/19. ID evaluated 02/22, recommends discontinuing vancomycin and possible 6 weeks antibiotic treatment if source control has not been achieved. Discussed with podiatry 02/22, likely not complete source control, pending pathology result of the margins. Operative culture positive for MSSA and strep agalactiae, follow final culture and sensitivity. If margins are not clear, he will need long-term antibiotic. He will need PICC line. Continue with wound care, follow-up with podiatry on discharge. Follow-up vascular surgery recommendation, await full recommendation. Generalized weakness Influenza A Patient presented with flulike symptoms, generalized tiredness/fatigue Respiratory viral panel positive for influenza A Chest x-ray does not show infiltrates Continue Tamiflu; treat for 5 days PT OT eval Pt reports strength getting better, cough and sore throat getting better. loose stool (stool pcr and c diff was neg) is better. Elevated high sensitive troponin of undetermined significance in setting of influenza A high sensitivity elevated with no significant delta difference. Echo with EF. of 60-65%, grade I diastolic dysfunction, Left ventricle wall motion normal. Cardiology evaluated, appreciate recommendation. c/w crestor, OP ischemic w/u. Monitor replete electrolytes. Elevated CPK: resolved. History of hypertension: Continue home metoprolol tartrate and triamterene/hydrochlorothiazide and potassium supplement. Will monitor Depression: On Zoloft Type 2 Diabetes on long-acting insulin 20 units nightly For now will place on insulin sliding scale and monitor a1c 6.4 this admisison needs to establish new PCP Full code dvt prophylaxis : pt on hep drip, see above. Admission and Anticipated Discharge Date Admission Date: February 20, 2024 Subjective Patient was seen and examined at bedside. Patient was sitting up in bed, on RA, NAD, resting comfortably. Patient reports eating okay, reports improvement in loose stool since > 1 day now Pt reports improving cough and denies any chest pain or sob. Pt denies fever, belly pain or new complaints. Pt reports operative site pain under control w/ medication. Denies other LE pain. Physical Exam Physical Exam: Constitutional: Alert oriented x 3; not in distress. RA Respiratory: Bilateral vesicular breath sound, CTA Cardiovascular: RRR, no murmur, no edema Vessels: no JVD or carotid bruit Abdomen: normal bowel sounds, soft, nontender, no hepatosplenomegaly Musculoskeletal: Rt forefoot dressing c/d/i. toes w/ good color, sensation intact. No discoloration noted. Neurologic: PERRL, EOMI, accommodation nl, no face palsy, no dysarthria CN's II- XI intact bilaterally and moves all extremities Psychiatric: A+Ox3, euthymic affect Results & Data Results & Data Vital Signs (Past 12 Hours) Vital Signs Temp Pulse Pulse Resp BP Pulse Ox O2 Del Method 02/24/24 13:00 73 02/24/24 10:56 36.3 C L 59 L 18 124/75 91 Room Air 02/24/24 08:20 Room Air 02/24/24 07:53 36.7 C 57 L 17 159/75 H 95 Room Air
[2024-02-24] MEDS: VANCOMYCIN LEVEL ONE (15:12)
[2024-02-24 18:51] LABS: ANTI-Xa, UFH(UnfractionatedHep 0.23 IU/ml (0.3-0.7)
[2024-02-25 01:27] LABS: ANTI-Xa, UFH(UnfractionatedHep 0.22 IU/ml (0.3-0.7)
[2024-02-25 08:02] LABS: Hemoglobin 14.8 g/dl (14.0-18.0); Mean Corpuscular Hemoglobin 28.4 pg (25.0-34.0); Mean Corpuscular Hgb Conc 32.9 g/dL (32.0-36.0); Mean Corpuscular Volume 86.2 fL (80.0-100.0); Mean Platelet Volume 9.9 fL (9.4-12.4); Platelet Count 154 K/uL (130-400); RDW Coefficient of Variation 13.2 % (11.5-14.5); RDW Standard Deviation 41.2 fL (36.4-46.3); Red Blood Count 5.22 M/uL (4.70-6.10); White Blood Count 8.82 K/ul (4.8-10.8)
[2024-02-25 08:33] LABS: BUN Creatinine Ratio 11.1 (10-20); Calcium 8.9 mg/dl (8.6-10.3); Creatinine Clr Calc Pharmacy 75.9 ml/min; Magnesium 1.8 mg/dl (1.7-2.4); Phosphorus 3.3 mg/dl (2.5-4.9)
[2024-02-25 08:34] LABS: ANTI-Xa, UFH(UnfractionatedHep 0.25 IU/ml (0.3-0.7)
[2024-02-25] MEDS ORDERED: hydrALAZINE HCL 20 MG/ML VIAL IV PRN (13:55)
--- NOTE | 2024-02-25 14:01 | Hospitalist Progress Note ---
Date of Service February 25, 2024 Assessment & Plan (1) Gangrene of right foot: Plan 78-year-old male who recently moved from [place], with PMH of HTN, DM, depression, ongoing tobacco use, heavy alcohol use [no drinking since last 6 months as per patient] who lives alone at home presented to the ED 02/19 with complaint of fall and found to have flu positive. Patient was feeling weak and fatigued. He slid from bed and fell down and he could not get up, he thinks he laid on the floor for 1 to 1 and half days and was finally able to call 911 and was brought in here. 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 hx of diabetic neuropathy with amputation of 5th toe of right foot ESR 43, CRP 13. MRI foot positive for acute osteomyelitis involving second toe proximal phalanx and head/neck of the second metatarsal. Possible septic arthritis involving the second MTP joint. 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 BLE extensive atherosclerotic disease. 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 Continue with Crestor. Discussed with vascular surgery afternoon of 02/22 for thrombosis of right superficial femoral artery, recommendation was heparin drip and the plan to eval him on Monday. Started on vancomycin [02/19 - 02/22], Zosyn 02/19. ID evaluated 02/22, recommends discontinuing vancomycin and possible 6 weeks antibiotic treatment if source control has not been achieved. Discussed with podiatry 02/22, likely not complete source control, pending pathology result of the margins. Operative culture positive for MSSA and strep agalactiae, follow final culture and sensitivity. If margins are not clear, he will need long-term antibiotic, will reach out to ID for final recs. He will need PICC line. Continue with wound care, follow-up with podiatry on discharge. Appreciate vascular surgery recommendation 02/22, await full recommendation. Generalized weakness Influenza A Patient presented with flulike symptoms, generalized tiredness/fatigue Respiratory viral panel positive for influenza A Chest x-ray does not show infiltrates s/p Tamiflu PT OT eval Pt reports strength getting better, cough and sore throat getting better. loose stool (stool pcr and c diff was neg) freq improvng. Elevated high sensitive troponin of undetermined significance in setting of influenza A high sensitivity elevated with no significant delta difference. Echo with EF. of 60-65%, grade I diastolic dysfunction, Left ventricle wall motion normal. Cardiology evaluated, appreciate recommendation. c/w crestor, OP ischemic w/u. Monitor replete electrolytes. Elevated CPK: resolved. History of hypertension: Continue home metoprolol tartrate and triamterene/hydrochlorothiazide and potassium supplement. Will monitor Depression: On Zoloft Type 2 Diabetes on long-acting insulin 20 units nightly For now will place on insulin sliding scale and monitor a1c 6.4 this admisison needs to establish new PCP Full code dvt prophylaxis : pt on hep drip, see above. Admission and Anticipated Discharge Date Admission Date: February 20, 2024 Subjective Patient was seen and examined at bedside. Patient was sitting up in bed eating his breakfast, on RA, NAD, resting comfortably. Patient reports eating okay. Per RN he has 3-4 loose stools in a day, incontinent. Overall the freq seems to be improving. Pt reports improving cough and denies any chest pain or sob. Pt denies fever, belly pain or new complaints. Pt reports operative site pain under control w/ medication. Denies other LE pain. Physical Exam Physical Exam: Constitutional: Alert oriented x 3; not in distress. RA Respiratory: Bilateral vesicular breath sound, CTA Cardiovascular: RRR, no murmur, no edema Vessels: no JVD or carotid bruit Abdomen: normal bowel sounds, soft, nontender, no hepatosplenomegaly Musculoskeletal: Rt forefoot dressing c/d/i. toes w/ good color, sensation intact. No discoloration noted. Neurologic: PERRL, EOMI, accommodation nl, no face palsy, no dysarthria CN's II- XI intact bilaterally and moves all extremities Psychiatric: A+Ox3, euthymic affect Results & Data Results & Data Vital Signs (Past 12 Hours) Vital Signs Temp Pulse Pulse Resp BP Pulse Ox Pulse Ox 02/25/24 13:00 96 02/25/24 11:39 36.7 C 64 18 185/95 H 96 02/25/24 09:40 02/25/24 07:58 36.5 C 62 18 158/80 H 96 02/25/24 07:12 66 02/25/24 03:21 36.5 C 57 L 18 166/80 H 99 O2 Del Method O2 Del Method 02/25/24 13:00 Room Air 02/25/24 11:39 Room Air 02/25/24 09:40 Room Air 02/25/24 07:58 Room Air 02/25/24 07:12 02/25/24 03:21 Room Air
[2024-02-25] MEDS: LOPERAMIDE HCL 2 MG CAP PO PRN (15:55)
[2024-02-25 16:27] LABS: ANTI-Xa, UFH(UnfractionatedHep 0.23 IU/ml (0.3-0.7)
[2024-02-25 23:20] LABS: ANTI-Xa, UFH(UnfractionatedHep 0.25 IU/ml (0.3-0.7)
[2024-02-26 05:24] LABS: Hematocrit (blood only) 43.4 % (42.0-52.0); Hemoglobin 14.6 g/dl (14.0-18.0); Mean Corpuscular Hemoglobin 28.6 pg (25.0-34.0); Mean Corpuscular Hgb Conc 33.6 g/dL (32.0-36.0); Mean Corpuscular Volume 84.9 fL (80.0-100.0); Mean Platelet Volume 10.2 fL (9.4-12.4); Platelet Count 173 K/uL (130-400); RDW Coefficient of Variation 13.1 % (11.5-14.5); RDW Standard Deviation 40.6 fL (36.4-46.3); Red Blood Count 5.11 M/uL (4.70-6.10); White Blood Count 7.86 K/ul (4.8-10.8)
[2024-02-26 05:25] LABS: BUN Creatinine Ratio 13.7 (10-20); Calcium 8.9 mg/dl (8.6-10.3); Creatinine Clr Calc Pharmacy 64.8 ml/min
[2024-02-26] MEDS: LEVALBUTEROL 1.25 MG/3 ML NEB NEB PRN (07:34)
--- NOTE | 2024-02-26 13:03 | History & Physical Report ---
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 We recommend arteriography with possible intervention for limb salvage. We will schedule this for this week. Thank you very much for letting us participate in the care of this patient. Admission and Anticipated Discharge Date Admission Date: February 20, 2024 History of Present Illness Chief Complaint: Right great toe gangrene post amputation Primary Care Provider: NO PCP Patient is a 78yo male who had a resp infection resulting in weakness. He was found on the floor at home after 1 1/2 days. He was found to also have a gangrene of his right great toe. He did have an amputation of his right great toe. He does claim that his legs do cause pain when walking although he does not walk fast or far enough. He denies rest pain. Allergies Allergy/AdvReac Type Severity Reaction Status Date / Time No Known Allergies Allergy Unverified 02/22/24 08:22 Home Medications Medication Instructions Recorded Confirmed Type insulin glargine 100 unit/mL (3 20 unit subcut UD 02/20/24 02/20/24 History mL) subcutaneous pen (Basaglar KwikPen U-100 Insulin) metoprolol tartrate 100 mg tablet 100 mg PO BID 02/20/24 02/20/24 History potassium chloride 20 mEq 20 meq PO BID 02/20/24 02/20/24 History tablet,extended release(part/cryst) sertraline 50 mg tablet 50 mg PO BID 02/20/24 02/20/24 History thiamine HCl (vitamin B1) 100 mg 100 mg PO DAILY 02/20/24 02/20/24 History tablet triamterene 75 1 tab PO DAILY 02/20/24 02/20/24 History mg-hydrochlorothiazide 50 mg tablet Past Med/Surg History Problem List (Updated 02/26/24 @ 13:02 by Nate Snow MD) 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 Prolonged QT interval Encounter for pre-operative examination 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 mellitus with peripheral angiopathy with gangrene Cellulitis of right leg Gangrene of right foot Acute osteomyelitis of right foot Abnormal EKG Weakness Influenza (Acute) Elevated troponin (Acute) Dehydration (Acute) Social History Smoking Status: Current every day smoker Tobacco Type: Cigarettes Do You Dip or Chew Tobacco: No; Tobacco Cessation Education Requested by Patient: No Hx Alcohol Use: No Hx Substance Use: No Preferred Language: Maori Communication Ability: Effective Air Quality Engineer Required: No Beliefs That Will Affect Care: None Current Living Situation: Alone Other Information That Helps Us Care for You: No Feels Safe at Home: Yes Safety Concerns: Feels Safe At This Time Assistive Devices: Cane Review of Systems All systems reviewed & are unremarkable except as noted in HPI & below Physical Exam Constitutional: WD/WN, vitals as above Respiratory: normal respiratory effort, lungs clear to auscultation Cardiovascular: RRR, no murmur, no edema Vessels: femoral pulses present and radial pulses present; + posterior tibial pulses abnormal and + dorsalis pedis pulses abnormal Extremities: normal capillary refill (decreased on the right) Gastrointestinal (Abdomen): normal bowel sounds, soft, nontender, no hepatosplenomegaly Skin: + incision (amputation site slightly dus ky) right second toe with gangrenous changes medially Neurologic: CN's II-XI intact bilaterally and moves all extremities Psychiatric: A+Ox3, euthymic affect Results & Data Vital Signs (Past 12 Hours) Vital Signs Temp Pulse Resp BP BP Pulse Ox O2 Del Method 02/26/24 12:04 36.6 C 68 16 126/71 92 Room Air 02/26/24 08:28 36.6 C 66 20 119/66 16 L Room Air 02/26/24 07:34 72 18 97 Room Air 02/26/24 07:15 Room Air 02/26/24 03:59 36.6 C 69 16 160/67 H 99 Room Air Code Status & VTE Plan VTE Prophylaxis Plan VTE Prophylaxis will be ordered: Yes
--- NOTE | 2024-02-26 15:21 | Hospitalist Progress Note ---
Date of Service February 26, 2024 Assessment & Plan (1) Gangrene of right foot: Plan 78-year-old male who recently moved from [place], with PMH of HTN, DM, depression, ongoing tobacco use, heavy alcohol use [no drinking since last 6 months as per patient] who lives alone at home presented to the ED 02/19 with complaint of fall and found to have flu positive. Patient was feeling weak and fatigued. He slid from bed and fell down and he could not get up, he thinks he laid on the floor for 1 to 1 and half days and was finally able to call 911 and was brought in here. 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 hx of diabetic neuropathy with amputation of 5th toe of right foot ESR 43, CRP 13. MRI foot positive for acute osteomyelitis involving second toe proximal phalanx and head/neck of the second metatarsal. Possible septic arthritis involving the second MTP joint. 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 BLE extensive atherosclerotic disease. 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 Continue with Crestor. Vascular surgery on board, continue with heparin drip, plan for arteriography with possible intervention for limb salvage. Started on vancomycin [02/19 - 02/22], Zosyn 02/19. ID evaluated 02/22, dc'd vancomycin 02/22 and possible 6 weeks antibiotic treatment if source control has not been achieved. Discussed with podiatry 02/22, likely not complete source control, pending pathology result of the margins. Operative culture positive for MSSA and strep agalactiae, follow final culture and sensitivity. If margins are not clear, he will need long-term antibiotic, will reach out to ID for final recs. He will need PICC line. Continue with wound care, follow-up with podiatry on discharge. Generalized weakness Influenza A Patient presented with flulike symptoms, generalized tiredness/fatigue Respiratory viral panel positive for influenza A Chest x-ray does not show infiltrates s/p Tamiflu PT OT eval Pt reports strength getting better, cough and sore throat getting better. loose stool (stool pcr and c diff was neg) freq stable/improving. Elevated high sensitive troponin of undetermined significance in setting of influenza A high sensitivity elevated with no significant delta difference. Echo with EF. of 60-65%, grade I diastolic dysfunction, Left ventricle wall motion normal. Cardiology evaluated, appreciate recommendation. c/w crestor, OP ischemic w/u. Monitor replete electrolytes. Elevated CPK: resolved. History of hypertension: Continue home metoprolol tartrate and triamterene/hydrochlorothiazide and potassium supplement. Will monitor Depression: On Zoloft Type 2 Diabetes on long-acting insulin 20 units nightly For now will place on insulin sliding scale and monitor a1c 6.4 this admisison needs to establish new PCP Full code dvt prophylaxis : pt on hep drip, see above. Admission and Anticipated Discharge Date Admission Date: February 20, 2024 Subjective Patient was seen and examined at bedside. Patient was lying in bed, on RA, NAD, resting comfortably. Patient reports eating okay. He was npo for vascular eval in AM. Per RN he has 3-4 loose stools yesterday, 1 overnight and none today. Overall the freq seems to be stable/ improving. Pt denies cough and denies any chest pain or sob. Pt denies fever, belly pain or new complaints. Pt reports operative site pain under control. Denies other LE pain. Physical Exam Physical Exam: Constitutional: Alert oriented x 3; not in distress. RA Respiratory: Bilateral vesicular breath sound, CTA Cardiovascular: RRR, no murmur, no edema Vessels: no JVD or carotid bruit Abdomen: normal bowel sounds, soft, nontender, no hepatosplenomegaly Musculoskeletal: Rt forefoot amputation site c/d/i. toes w/ good color, sensation intact. slow cap refill. No discoloration noted. Neurologic: PERRL, EOMI, accommodation nl, no face palsy, no dysarthria CN's II- XI intact bilaterally and moves all extremities Psychiatric: A+Ox3, euthymic affect Results & Data Results & Data Vital Signs (Past 12 Hours) Vital Signs Temp Pulse Resp BP BP Pulse Ox O2 Del Method 02/26/24 12:04 36.6 C 68 16 126/71 92 Room Air 02/26/24 08:28 36.6 C 66 20 119/66 16 L Room Air 02/26/24 07:34 72 18 97 Room Air 02/26/24 07:15 Room Air 02/26/24 03:59 36.6 C 69 16 160/67 H 99 Room Air
[2024-02-27 07:15] LABS: Hematocrit (blood only) 43.2 % (42.0-52.0); Hemoglobin 14.7 g/dl (14.0-18.0); Mean Corpuscular Hemoglobin 28.8 pg (25.0-34.0); Mean Corpuscular Volume 84.5 fL (80.0-100.0); Mean Platelet Volume 9.6 fL (9.4-12.4); Platelet Count 183 K/uL (130-400); RDW Coefficient of Variation 13.2 % (11.5-14.5); RDW Standard Deviation 40.6 fL (36.4-46.3); Red Blood Count 5.11 M/uL (4.70-6.10); White Blood Count 9.74 K/ul (4.8-10.8)
[2024-02-27 07:25] LABS: BUN Creatinine Ratio 13.9 (10-20); Calcium 9.2 mg/dl (8.6-10.3); Creatinine Clr Calc Pharmacy 61.3 ml/min; Magnesium 1.9 mg/dl (1.7-2.4); Phosphorus 2.8 mg/dl (2.5-4.9); Potassium 4.3 mmol/L (3.5-5.1)
[2024-02-27 07:37] LABS: ANTI-Xa, UFH(UnfractionatedHep 0.21 IU/ml (0.3-0.7)
--- NOTE | 2024-02-27 13:37 | Podiatry Progress Note ---
Date of Service February 27, 2024 Assessment & Plan (1) Type 2 diabetes mellitus with diabetic polyneuropathy: (2) Diabetes mellitus with peripheral angiopathy with gangrene: (3) Cellulitis of right leg: (4) Gangrene of right foot: (5) Acute osteomyelitis of right foot: Plan - Patient examined and evaluated Status post right second toe amputation. -Foot was cleaned and redressed with a dry sterile dressing and Betadine to the surgical site -He is scheduled for vascular intervention later this week with Dr. Snow which should help heal these wounds as adequately as possible. -With the level of gangrene that was noted preoperatively, his prognosis is extremely guarded/poor. He may require a below the knee amputation or more proximal amputation if the foot becomes nonsalvageable. 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 -Will continue to follow every day or so and redress as needed. Admission and Anticipated Discharge Date Admission Date: February 20, 2024 Subjective Patient seen at bedside. Denies any new concerns. Denies any new postoperative pain. Is still feeling lethargic but otherwise has no new systemic signs of infection. Review of Systems Constitutional: no fever, no chills and no fatigue Eyes: no problem reported Ear, Nose, Mouth, Throat: no problem reported Respiratory: no problem reported Cardiovascular: + edema; no problem reported Gastrointestinal: no nausea, no vomiting and no problem reported Musculoskeletal: no problem reported Integumentary: + skin ulcer, + wounds and + erythema Neurologic: + loss of sensation, + numbness and + pa resthesia; no generalized weakness Psychiatric: no problem reported Physical Exam Physical Exam: Lower extremity focused exam: DP/PT pulses nonpalpable. CFT is Decreased to the third toe but still present. This toe was increasingly dusky with no dry gangrene noted but also a drastic delay in this capillary fill time. Similarly, there is increasing duskiness and rubor to the foot globally. No purulent drainage and no active bleeding noted. Sutures are intact to the surgical site with the packing having been removed on Monday. Still, no purulence is appreciated to the surgical site. No ascending cellulitis noted. Constitutional: WD/WN, vitals as above + ill appearing and + thin Eyes: PERRL, conjunctivae normal, anicteric sclerae ENMT: external ear and nose normal, oropharynx normal Mouth: + poor dentiti on Neck: trachea midline, no thyromegaly Respiratory: normal respiratory effort and + respiratory distress Cardiovascular: RRR, no murmur, no edema Vessels: + posterior tibial pulses abnormal and + dorsalis pedis pulses abnormal Extremities: normal capillary refill (With the exception of the right second toe which is gangrenous, absent MANAGER ELIGIBILITY) Chest (Breasts): normal inspection/palpation of breasts Gastrointestinal (Abdomen): Inspection/Auscultation: abdomen normal to inspection; abdomen not distended Percussion/Palpation: no guarding Musculoskeletal: Head/Neck/Chest: normocephalic and head atraumatic Extremities: + limited ROM of extremities, + muscle atrophy and + foot abnormality Skin: + ulcer, + skin tightening, + skin atrop hy, + erythema and + eschar Neurologic: plantar reflexes intact bilaterally and moves all extremities; + abnormal sensation to monofilament Psychiatric: A+Ox3, euthymic affect Results & Data Results & Data Vital Signs (Past 12 Hours) Vital Signs Temp Pulse Pulse Resp BP BP Pulse Ox 02/27/24 12:05 36.9 C 60 18 164/77 H 96 02/27/24 09:52 02/27/24 07:37 36.5 C 62 18 148/78 H 94 02/27/24 07:27 61 02/27/24 03:42 36.8 C 62 20 152/68 H 97 O2 Del Method 02/27/24 12:05 Room Air 02/27/24 09:52 Room Air 02/27/24 07:37 Room Air 02/27/24 07:27 02/27/24 03:42 Room Air (1) 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 mellitus assisted insulin use: with assisted use Qualified Code(s): E11.42 - Type 2 diabetes mellitus with diabetic polyneuropathy; Z79.4 - long term care pharmacist (current) use of insulin (2) Diabetes mellitus with peripheral angiopathy with gangrene Diabetes mellitus type: type 2 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
--- NOTE | 2024-02-27 14:05 | Hospitalist Progress Note ---
Date of Service February 27, 2024 Assessment & Plan (1) Gangrene of right foot: Plan 78-year-old male who recently moved from [place], with PMH of HTN, DM, depression, ongoing tobacco use, heavy alcohol use [no drinking since last 6 months as per patient] who lives alone at home presented to the ED 02/19 with complaint of fall and found to have flu positive. Patient was feeling weak and fatigued. He slid from bed and fell down and he could not get up, he thinks he laid on the floor for 1 to 1 and half days and was finally able to call 911 and was brought in here. 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 hx of diabetic neuropathy with amputation of 5th toe of right foot ESR 43, CRP 13. MRI foot positive for acute osteomyelitis involving second toe proximal phalanx and head/neck of the second metatarsal. Possible septic arthritis involving the second MTP joint. 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 BLE extensive atherosclerotic disease. 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 Continue with Crestor. Vascular surgery on board, continue with heparin drip, plan for arteriography with possible intervention for limb salvage. Left page (via 91 ) for vascular to update on appearance of discoloration of the right foot, await call back. I can't tiger text them per protocol. Started on vancomycin [02/19 - 02/22], Zosyn [02/19 - 02/26]. ID evaluated 02/22, dc'd vancomycin 02/22. D/w ID about pathology of the operative margins 02/26 ---> recommends total 6 wks antibiotic, dc zosyn, start iv ancef. PICC line obtained 02/26. Ancef started 02/26. Podiatry on board, appreciate recs. Operative culture positive for MSSA and strep agalactiae, no anaerobes. Continue with wound care, follow-up with podiatry on discharge. Generalized weakness Influenza A Patient presented with flulike symptoms, generalized tiredness/fatigue Respiratory viral panel positive for influenza A Chest x-ray does not show infiltrates s/p Tamiflu PT OT eval Pt reports strength getting better, cough and sore throat getting better. loose stool (stool pcr and c diff was neg) improved per pt. Elevated high sensitive troponin of undetermined significance in setting of influenza A high sensitivity elevated with no significant delta difference. Echo with EF. of 60-65%, grade I diastolic dysfunction, Left ventricle wall motion normal. Cardiology evaluated, appreciate recommendation. c/w crestor, OP ischemic w/u. Monitor replete electrolytes. Elevated CPK: resolved. History of hypertension: Continue home metoprolol tartrate and triamterene/hydrochlorothiazide and potassium supplement. Will monitor Depression: On Zoloft Type 2 Diabetes on long-acting insulin 20 units nightly For now will place on insulin sliding scale and monitor a1c 6.4 this admisison needs to establish new PCP Full code dvt prophylaxis : pt on hep drip, see above. Admission and Anticipated Discharge Date Admission Date: February 20, 2024 Subjective Patient was seen and examined at bedside. Patient was lying in bed, on RA, NAD, resting comfortably. Patient reports eating okay. Pt reports stool forming up. Pt denies cough and denies any chest pain or sob. Pt denies fever, belly pain or new complaints. Pt reports operative site pain under control. Denies other LE pain. Physical Exam Physical Exam: Constitutional: Alert oriented x 3; not in distress. RA Respiratory: Bilateral vesicular breath sound, CTA Cardiovascular: RRR, no murmur, no edema Vessels: no JVD or carotid bruit Abdomen: normal bowel sounds, soft, nontender, no hepatosplenomegaly Musculoskeletal: Rt forefoot amputation site c/d/i. no purulence noted, slightly discoloration of rt 2nd toe, some discoloration of dorsum and lateral rt foot. No increase pain. Neurologic: PERRL, EOMI, accommodation nl, no face palsy, no dysarthria CN's II- XI intact bilaterally and moves all extremities Psychiatric: A+Ox3, euthymic affect Results & Data Results & Data Vital Signs (Past 12 Hours) Vital Signs Temp Pulse Pulse Resp BP BP Pulse Ox 02/27/24 12:05 36.9 C 60 18 164/77 H 96 02/27/24 09:52 02/27/24 07:37 36.5 C 62 18 148/78 H 94 02/27/24 07:27 61 02/27/24 03:42 36.8 C 62 20 152/68 H 97 O2 Del Method 02/27/24 12:05 Room Air 02/27/24 09:52 Room Air 02/27/24 07:37 Room Air 02/27/24 07:27 02/27/24 03:42 Room Air
[2024-02-27] MEDS: ceFAZolin 2000MG 2,000 MG/15 ML SYR IV SCH (14:54)
[2024-02-27 23:30] LABS: ANTI-Xa, UFH(UnfractionatedHep 0.24 IU/ml (0.3-0.7)
[2024-02-28 05:03] LABS: BUN Creatinine Ratio 15.2 (10-20); Calcium 9.4 mg/dl (8.6-10.3); Creatinine Clr Calc Pharmacy 62.6 ml/min
[2024-02-28 05:12] LABS: ANTI-Xa, UFH(UnfractionatedHep 0.27 IU/ml (0.3-0.7)
--- NOTE | 2024-02-28 07:54 | Communication Note ---
Date of Service: February 28, 2024 Will plan on monday.
--- NOTE | 2024-02-28 07:56 | Consultation ---
Date of Consultation February 26, 2024 History of Present Illness Attending Physician: Gildardo Vidal MD History of Present Illness [facility] [place] [address] History & Physical Report Signed Patient: JULIO CESAR LAGOS Admit Date: 02/20/24 MR#: [id number] Att Phy: Dylon Larry MD Acct ID: [id number] Kathi Phy: PCP,NO Date: 1945 Fam Phy: Age: 78 Location: 2N Sex: M Room/Bed: N279-1 cc: ~ *NOTICE TO RECEIVING REPUBLICAN/AGENCY This information is strictly Confidential and protected under [place] law. [place] law prohibits you from making any further disclosure of this information unless further disclosure is expressly permitted by the written consent of the person to whom it pertains or is authorized by law. A general authorization for the release of medical or oth er information is not sufficient for this purpose. Hospital accepts no responsibility if the information is made available to any other person, INCLUDING THE PATIENT. 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 We recommend arteriography with possible intervention for limb salvage. We will schedule this for this week. Thank you very much for letting us participate in the care of this patient. Admission and Anticipated Discharge Date Admission Date: February 20, 2024 History of Present Illness Chief Complaint: Right great toe gangrene post amputation Primary Care Provider: NO PCP Patient is a 78yo male who had a resp infection resulting in weakness. He was found on the floor at home after 1 1/2 days. He was found to also have a gangrene of his right great toe. He did have an amputation of his right great toe. He does claim that his legs do cause pain when walking although he does not walk fast or far enough. He denies rest pain. Allergies Allergy/AdvReac Type Severity Reaction Status Date / Time No Known Allergies Allergy Unverified 02/22/24 08:22 Home Medications Medication Instructions Recorded Confirmed Type insulin glargine 100 unit/mL (3 20 unit subcut UD 02/20/24 02/20/24 History mL) subcutaneous pen (Basaglar KwikPen U-100 Insulin) metoprolol tartrate 100 mg tablet 100 mg PO BID 02/20/24 02/20/24 History potassium chloride 20 mEq 20 meq PO BID 02/20/24 02/20/24 History tablet,extended release(part/cryst) sertraline 50 mg tablet 50 mg PO BID 02/20/24 02/20/24 History thiamine HCl (vitamin B1) 100 mg 100 mg PO DAILY 02/20/24 02/20/24 History tablet triamterene 75 1 tab PO DAILY 02/20/24 02/20/24 History mg-hydrochlorothiazide 50 mg tablet Past Med/Surg History Problem List (Updated 02/26/24 @ 13:02 by Nate Snow MD) 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 Prolonged QT interval Encounter for pre-operative examination 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 mellitus with peripheral angiopathy with gangrene Cellulitis of right leg Gangrene of right foot Acute osteomyelitis of right foot Abnormal EKG Weakness Influenza (Acute) Elevated troponin (Acute) Dehydration (Acute) Social History Smoking Status: Current every day smoker Tobacco Type: Cigarettes Do You Dip or Chew Tobacco: No; Tobacco Cessation Education Requested by Patient: No Hx Alcohol Use: No Hx Substance Use: No Preferred Language: Burkinan Communication Ability: Effective Physician Aide Required: No Beliefs That Will Affect Care: None Current Living Situation: Alone Other Information That Helps Us Care for You: No Feels Safe at Home: Yes Safety Concerns: Feels Safe At This Time Assistive Devices: Cane Review of Systems All systems reviewed & are unremarkable except as noted in HPI & below Physical Exam Constitutional: WD/WN, vitals as above Respiratory: normal respiratory effort, lungs clear to auscultation Cardiovascular: RRR, no murmur, no edema Vessels: femoral pulses present and radial pulses present; + posterior tibial pulses abnormal and + dorsalis pedis pulses abnormal Extremities: normal capillary refill (decreased on the right) Gastrointestinal (Abdomen): normal bowel sounds, soft, nontender, no hepatosplenomegaly Skin: + incision (amputation site slightly dus ky) right second toe with gangrenous changes medially Neurologic: CN's II-XI intact bilaterally and moves all extremities Psychiatric: A+Ox3, euthymic affect Results & Data Vital Signs (Past 12 Hours) Vital Signs Temp Pulse Resp BP BP Pulse Ox O2 Del Method 02/26/24 12:04 36.6 C 68 16 126/71 92 Room Air 02/26/24 08:28 36.6 C 66 20 119/66 16 L Room Air 02/26/24 07:34 72 18 97 Room Air 02/26/24 07:15 Room Air 02/26/24 03:59 36.6 C 69 16 160/67 H 99 Room Air Code Status & VTE Plan VTE Prophylaxis Plan VTE Prophylaxis will be ordered: Yes Signed By: <Electronically signed by Nate Snow MD> 02/26/24 1303 Created: 02/26/24 1255 The status of this report is Signed. Draft = Not yet reviewed or approved by Medical Physician. Signed = Reviewed and approved by Medical Physician. Allergies Allergy/AdvReac Type Severity Reaction Status Date / Time No Known Allergies Allergy Unverified 02/22/24 08:22 Home Medications Medication Instructions Recorded Confirmed Type insulin glargine 100 unit/mL (3 20 unit subcut UD 02/20/24 02/20/24 History mL) subcutaneous pen (Basaglar KwikPen U-100 Insulin) metoprolol tartrate 100 mg tablet 100 mg PO BID 02/20/24 02/20/24 History potassium chloride 20 mEq 20 meq PO BID 02/20/24 02/20/24 History tablet,extended release(part/cryst) sertraline 50 mg tablet 50 mg PO BID 02/20/24 02/20/24 History thiamine HCl (vitamin B1) 100 mg 100 mg PO DAILY 02/20/24 02/20/24 History tablet triamterene 75 1 tab PO DAILY 02/20/24 02/20/24 History mg-hydrochlorothiazide 50 mg tablet Patient History Social History Smoking Status: Current every day smoker Tobacco Type: Cigarettes Do You Dip or Chew Tobacco: No; Tobacco Cessation Education Requested by Patient: No Hx Alcohol Use: No Hx Substance Use: No Preferred Language: Burkinan Communication Ability: Effective Physician Aide Required: No Beliefs That Will Affect Care: None Current Living Situation: Alone Other Information That Helps Us Care for You: No Feels Safe at Home: Yes Safety Concerns: Feels Safe At This Time Assistive Devices: Cane Results & Data Vital Signs (Past 12 Hours) Vital Signs Temp Pulse Pulse Resp BP Pulse Ox O2 Del Method 02/28/24 07:04 69 02/28/24 04:43 36.7 C 60 20 154/80 H 94 Room Air 02/28/24 00:13 36.5 C 55 L 20 152/81 H 94 Room Air 02/27/24 21:48 61 02/27/24 20:00 Room Air 02/27/24 19:57 36.6 C 76 20 161/82 H 94 Room Air
[2024-02-28 11:07] LABS: ANTI-Xa, UFH(UnfractionatedHep 0.27 IU/ml (0.3-0.7)
--- NOTE | 2024-02-28 12:02 | Podiatry Progress Note ---
Date of Service February 23, 2024 Assessment & Plan (1) Type 2 diabetes mellitus with diabetic polyneuropathy: (2) Diabetes mellitus with peripheral angiopathy with gangrene: (3) Cellulitis of right leg: (4) Gangrene of right foot: (5) Acute osteomyelitis of right foot: Plan - Patient examined and evaluated Status post right second toe amputation. - Packing removed at bedside uneventfully. - Foot was cleaned and redressed with a dry sterile dressing and Betadine to the surgical site - Pathology is still pending. - Will continue to follow every day or so and redress as needed. Admission and Anticipated Discharge Date Admission Date: February 20, 2024 Subjective Patient seen at bedside POD#1. Feeling well postoperatively. Denies any new concerns. Has kept dressing clean/dry since yesterday Review of Systems Constitutional: no fever, no chills and no fatigue Eyes: no problem reported Ear, Nose, Mouth, Throat: no problem reported Respiratory: no problem reported Cardiovascular: + edema; no problem reported Gastrointestinal: no nausea, no vomiting and no problem reported Musculoskeletal: no problem reported Integumentary: + skin ulcer, + wounds and + erythema Neurologic: + loss of sensation, + numbness and + pa resthesia; no generalized weakness Psychiatric: no problem reported Physical Exam Physical Exam: Lower extremity focused exam: DP/PT pulses nonpalpable. CFT is brisk to remaining digits. Packing pulled uneventfully, without new necrosis or infectious tissue noted clinically. No purulence is appreciated to the surgical site. No ascending cellulitis noted. 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) Chest (Breasts): normal inspection/palpation of breasts Gastrointestinal (Abdomen): Inspection/Auscultation: abdomen normal to inspection; abdomen not distended Percussion/Palpation: no guarding Musculoskeletal: Head/Neck/Chest: normocephalic and head atraumatic Extremities: + limited ROM of extremities, + muscle atrophy and + foot abnormality Skin: + ulcer, + skin tightening, + skin atrop hy, + erythema and + eschar Neurologic: plantar reflexes intact bilaterally and moves all extremities; + abnormal sensation to monofilament Psychiatric: A+Ox3, euthymic affect Results & Data Results & Data Vital Signs (Past 12 Hours) Vital Signs Temp Pulse Pulse Resp BP Pulse Ox O2 Del Method 02/28/24 09:24 Room Air 02/28/24 07:58 36.7 C 80 18 166/93 H 95 Room Air 02/28/24 07:04 69 02/28/24 04:43 36.7 C 60 20 154/80 H 94 Room Air 02/28/24 00:13 36.5 C 55 L 20 152/81 H 94 Room Air (1) 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 mellitus intermodal customer service insulin use: with intermodal customer service use Qualified Code(s): E11.42 - Type 2 diabetes mellitus with diabetic polyneuropathy; Z79.4 - medical terminologist (current) use of insulin (2) Diabetes mellitus with peripheral angiopathy with gangrene Diabetes mellitus type: type 2 Diabetes mellitus residential insulin use: with residential use Qualified Code(s): E11.52 - Type 2 diabetes mellitus with diabetic peripheral angiopathy with gangrene; Z79.4 - medical terminologist (current) use of insulin
--- NOTE | 2024-02-28 12:17 | Hospitalist Progress Note ---
Date of Service February 28, 2024 Assessment & Plan (1) Gangrene of right foot: Plan 78-year-old male who recently moved from [place], with PMH of HTN, DM, depression, ongoing tobacco use, heavy alcohol use [no drinking since last 6 months as per patient] who lives alone at home presented to the ED 02/19 with complaint of fall and found to have flu positive. Patient was feeling weak and fatigued. He slid from bed and fell down and he could not get up, he thinks he laid on the floor for 1 to 1 and half days and was finally able to call 911 and was brought in here. 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 hx of diabetic neuropathy with amputation of 5th toe of right foot ESR 43, CRP 13. MRI foot positive for acute osteomyelitis involving second toe proximal phalanx and head/neck of the second metatarsal. Possible septic arthritis involving the second MTP joint. 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 BLE extensive atherosclerotic disease. 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 Continue with Crestor. Vascular surgery on board, continue with heparin drip, plan for arteriography with possible intervention for limb salvage. Started on vancomycin [02/19 - 02/22], Zosyn [02/19 - 02/26]. ID evaluated 02/22, dc'd vancomycin 02/22. Previous attending D/w ID about pathology of the operative margins 02/26 ---> recommends total 6 wks antibiotic, dc zosyn, start iv ancef. PICC line obtained 02/26. Ancef started 02/26. Podiatry on board, appreciate recs. Operative culture positive for MSSA and strep agalactiae, no anaerobes. Continue with wound care, follow-up with podiatry on discharge. Generalized weakness Influenza A Patient presented with flulike symptoms, generalized tiredness/fatigue Respiratory viral panel positive for influenza A Chest x-ray does not show infiltrates s/p Tamiflu PT OT eval Elevated high sensitive troponin of undetermined significance in setting of influenza A high sensitivity elevated with no significant delta difference. Echo with EF. of 60-65%, grade I diastolic dysfunction, Left ventricle wall motion normal. Cardiology evaluated, appreciate recommendation. c/w crestor, OP ischemic w/u. Monitor replete electrolytes. Elevated CPK: resolved. History of hypertension: Continue home metoprolol tartrate and triamterene/hydrochlorothiazide and potassium supplement. Will monitor Depression: On Zoloft Type 2 Diabetes on long-acting insulin 20 units nightly For now will place on insulin sliding scale and monitor a1c 6.4 this admisison needs to establish new PCP Full code dvt prophylaxis : pt on hep drip, see above. Please note the above document was generated using voice recognition software. It may contain grammatical, syntax or spelling errors. Any formal questions or concerns about the content, text or information contained within the body of this dictation should be directly addressed to the provider for clarification Admission and Anticipated Discharge Date Admission Date: February 20, 2024 Subjective Patient seen and examined at bedside. He is lying on the bed comfortably; not in distress He denies any pain or discomfort. No significant events overnight Review of Systems Review of Systems: All systems reviewed & are unremarkable except as noted in Subjective Physical Exam Physical Exam: Constitutional: Alert oriented x 3; not in distress. RA Respiratory: Bilateral vesicular breath sound, CTA Cardiovascular: RRR, no murmur, no edema Vessels: no JVD or carotid bruit Abdomen: normal bowel sounds, soft, nontender, no hepatosplenomegaly Musculoskeletal: Rt forefoot amputation site c/d/i. no purulence noted, No increase pain. Neurologic: PERRL, EOMI, accommodation nl, no face palsy, no dysarthria CN's II- XI intact bilaterally and moves all extremities Psychiatric: A+Ox3, euthymic affect Results & Data Results & Data Vital Signs (Past 12 Hours) Vital Signs Temp Pulse Pulse Resp BP Pulse Ox O2 Del Method 02/28/24 09:24 Room Air 02/28/24 07:58 36.7 C 80 18 166/93 H 95 Room Air 02/28/24 07:04 69 02/28/24 04:43 36.7 C 60 20 154/80 H 94 Room Air
[2024-02-28 18:26] LABS: ANTI-Xa, UFH(UnfractionatedHep 0.42 IU/ml (0.3-0.7)
--- NOTE | 2024-02-29 08:10 | Hospitalist Progress Note ---
Date of Service February 29, 2024 Assessment & Plan (1) Gangrene of right foot: Plan 78-year-old male who recently moved from [place], with PMH of HTN, DM, depression, ongoing tobacco use, heavy alcohol use [no drinking since last 6 months as per patient] who lives alone at home presented to the ED 02/19 with complaint of fall and found to have flu positive. Patient was feeling weak and fatigued. He slid from bed and fell down and he could not get up, he thinks he laid on the floor for 1 to 1 and half days and was finally able to call 911 and was brought in here. 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 hx of diabetic neuropathy with amputation of 5th toe of right foot ESR 43, CRP 13. MRI foot positive for acute osteomyelitis involving second toe proximal phalanx and head/neck of the second metatarsal. Possible septic arthritis involving the second MTP joint. 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 BLE extensive atherosclerotic disease. 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 Continue with Crestor. Vascular surgery on board, continue with heparin drip, plan for arteriography with possible intervention for limb salvage. Started on vancomycin [02/19 - 02/22], Zosyn [02/19 - 02/26]. ID evaluated 02/22, dc'd vancomycin 02/22. Previous attending D/w ID about pathology of the operative margins 02/26 ---> recommends total 6 wks antibiotic, dc zosyn, start iv ancef. PICC line obtained 02/26. Ancef started 02/26. Operative culture positive for MSSA and strep agalactiae, no anaerobes. Continue with wound care, follow-up with podiatry on discharge. Generalized weakness Influenza A Patient presented with flulike symptoms, generalized tiredness/fatigue Respiratory viral panel positive for influenza A Chest x-ray does not show infiltrates s/p Tamiflu droplet precautions discontinued on 02/28/2023 PT OT eval Elevated high sensitive troponin of undetermined significance in setting of influenza A high sensitivity elevated with no significant delta difference. Echo with EF. of 60-65%, grade I diastolic dysfunction, Left ventricle wall motion normal. Cardiology evaluated, appreciate recommendation. c/w crestor, OP ischemic w/u. Monitor replete electrolytes. Elevated CPK: resolved. History of hypertension: Continue home metoprolol tartrate and triamterene/hydrochlorothiazide and potassium supplement. Will monitor Depression: On Zoloft Type 2 Diabetes on long-acting insulin 20 units nightly For now will place on insulin sliding scale and monitor a1c 6.4 this admisison needs to establish new PCP Full code dvt prophylaxis : pt on hep drip, see above. Please note the above document was generated using voice recognition software. It may contain grammatical, syntax or spelling errors. Any formal questions or concerns about the content, text or information contained within the body of this dictation should be directly addressed to the provider for clarification Admission and Anticipated Discharge Date Admission Date: February 20, 2024 Subjective Patient seen and examined at bedside. Comfortable; not in distress. Denies fever, chills, chest pain, shortness of breath, abdominal pain or urinary symptoms. No significant overnight events Review of Systems Review of Systems: All systems reviewed & are unremarkable except as noted in Subjective Physical Exam Physical Exam: Constitutional: Alert oriented x 3; not in distress. RA Respiratory: Bilateral vesicular breath sound, CTA Cardiovascular: RRR, no murmur, no edema Vessels: no JVD or carotid bruit Abdomen: normal bowel sounds, soft, nontender, no hepatosplenomegaly Musculoskeletal: Rt forefoot amputation site c/d/i. no purulence noted, No increase pain. Neurologic: PERRL, EOMI, accommodation nl, no face palsy, no dysarthria CN's II- XI intact bilaterally and moves all extremities Psychiatric: A+Ox3, euthymic affect Results & Data Results & Data Vital Signs (Past 12 Hours) Vital Signs Temp Pulse Pulse Resp BP BP Pulse Ox 02/29/24 07:20 36.4 C L 61 16 152/77 H 95 02/29/24 07:00 57 L 02/29/24 03:37 36.4 C L 60 18 151/70 H 94 02/28/24 23:47 36.5 C 60 18 147/79 H 96 02/28/24 22:47 73 O2 Del Method 02/29/24 07:20 Room Air 02/29/24 07:00 02/29/24 03:37 Room Air 02/28/24 23:47 Room Air 02/28/24 22:47
[2024-02-29 08:36] LABS: Basophils # (auto) 0.06 K/uL (0.00-0.20); Basophils % (auto) 0.6 %; Eosinophils # (auto) 0.27 K/uL (0.00-0.50); Eosinophils % (auto) 2.9 %; Hematocrit (blood only) 40.2 % (42.0-52.0); Hemoglobin 13.6 g/dl (14.0-18.0); Immature Granulocytes # (auto) 0.09 K/uL (0.01-0.20); Lymphocytes # (auto) 1.56 K/uL (1.20-3.40); Lymphocytes % (auto) 16.5 %; Mean Corpuscular Hemoglobin 29.1 pg (25.0-34.0); Mean Corpuscular Hgb Conc 33.8 g/dL (32.0-36.0); Mean Corpuscular Volume 86.1 fL (80.0-100.0); Mean Platelet Volume 9.7 fL (9.4-12.4); Monocytes # (auto) 0.97 K/uL (0.11-0.59); Monocytes % (auto) 10.3 %; Neutrophils # (auto) 6.51 K/uL (1.40-6.50); Neutrophils % (auto) 68.7 %; Platelet Count 217 K/uL (130-400); RDW Coefficient of Variation 13.2 % (11.5-14.5); RDW Standard Deviation 41.1 fL (36.4-46.3); Red Blood Count 4.67 M/uL (4.70-6.10); White Blood Count 9.46 K/ul (4.8-10.8)
[2024-02-29 08:51] LABS: BUN Creatinine Ratio 22.5 (10-20); Calcium 9.2 mg/dl (8.6-10.3); Creatinine Clr Calc Pharmacy 66.3 ml/min; Potassium 3.7 mmol/L (3.5-5.1)
--- NOTE | 2024-02-29 21:20 | Podiatry Progress Note ---
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 -Foot was cleaned and redressed with a dry sterile dressing and Aquacel to the surgical site -He is scheduled for vascular intervention tomorrow with Dr. Snow which should help establish further prognosis -With the level of gangrene that was noted preoperatively, his prognosis is extremely guarded/poor. He may require a below the knee amputation or more proximal amputation if the foot becomes nonsalvageable. 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 -Will continue to follow every day or so and redress as needed. Admission and Anticipated Discharge Date Admission Date: February 20, 2024 Subjective Pt seen at bedside at lunchtime. Denies new pain/subjective concerns. Is eager/anxious for vascular surgery tomorrow. Has had foot dressing changed today by wound care. Concerned/curious if he will need further amputation in future. Review of Systems Constitutional: no fever, no chills and no fatigue Eyes: no problem reported Ear, Nose, Mouth, Throat: no problem reported Respiratory: no problem reported Cardiovascular: + edema; no problem reported Gastrointestinal: no nausea, no vomiting and no problem reported Musculoskeletal: no problem reported Integumentary: + skin ulcer, + wounds and + erythema Neurologic: + loss of sensation, + numbness and + pa resthesia; no generalized weakness Psychiatric: no problem reported Physical Exam Physical Exam: Lower extremity focused exam: DP/PT pulses nonpalpable. CFT is absent to the third toe but still present, with increasing dusky appearance to fourth toe and medial forefoot overall. Proximally, there is a large circumscribed area of rubor/ischemia to the dorsal rearfoot/midfoot. A dry eschar measures 4x6cm and likely represents upstaging or worsening necrosis, as well. No purulent dr tray and no active bleeding noted. Sutures are intact to the surgical site with the packing having been removed on Monday. Still, no purulence is appreciated to the surgical site. No ascending cellulitis noted. Constitutional: WD/WN, vitals as above + ill appearing and + thin Eyes: PERRL, conjunctivae normal, anicteric sclerae ENMT: external ear and nose normal, oropharynx normal Mouth: + poor dentition Neck: trachea midline, no thyromegaly Respiratory: normal respiratory effort and + respiratory distress Cardiovascular: RRR, no murmur, no edema Vessels: + posterior tibial pulses abnormal and + dorsalis pedis pulses abnormal Extremities: normal capillary refill (With the exception of the right second toe which is gangrenous, absent INSPECTOR TOOL) Chest (Breasts): normal inspection/palpation of breasts Gastrointestinal (Abdomen): Inspection/Auscultation: abdomen normal to inspection; abdomen not distended Percussion/Palpation: no guarding Musculoskeletal: Head/Neck/Chest: normocephalic and head atraumatic Extremities: + limited ROM of extremities, + muscle atrophy and + foot abnormality Skin: + ulcer, + skin tightening, + skin atrop hy, + erythema and + eschar Neurologic: plantar reflexes intact bilaterally and moves all extremities; + abnormal sensation to monofilament Psychiatric: A+Ox3, euthymic affect Results & Data Results & Data Vital Signs (Past 12 Hours) Vital Signs Temp Pulse Pulse Resp BP Pulse Ox O2 Del Method 02/29/24 19:33 36.8 C 67 18 137/75 93 Room Air 02/29/24 15:38 36.5 C 71 16 145/80 H 93 Room Air 02/29/24 14:55 62 02/29/24 11:35 36.9 C 61 16 159/91 H 97 Room Air (1) 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 mellitus snf insulin use: with snf use Qualified Code(s): E11.42 - Type 2 diabetes mellitus with diabetic polyneuropathy; 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
[2024-03-01] MEDS: SODIUM CHLORIDE 0.9% 1,000 ML IV SCH (05:39)
[2024-03-01 06:39] LABS: Basophils # (auto) 0.05 K/uL (0.00-0.20); Basophils % (auto) 0.4 %; Eosinophils # (auto) 0.12 K/uL (0.00-0.50); Hematocrit (blood only) 41.1 % (42.0-52.0); Hemoglobin 13.8 g/dl (14.0-18.0); Immature Granulocytes # (auto) 0.12 K/uL (0.01-0.20); Lymphocytes # (auto) 1.53 K/uL (1.20-3.40); Mean Corpuscular Hemoglobin 28.8 pg (25.0-34.0); Mean Corpuscular Hgb Conc 33.6 g/dL (32.0-36.0); Mean Corpuscular Volume 85.6 fL (80.0-100.0); Mean Platelet Volume 9.3 fL (9.4-12.4); Monocytes # (auto) 1.13 K/uL (0.11-0.59); Monocytes % (auto) 9.6 %; Neutrophils # (auto) 8.85 K/uL (1.40-6.50); Platelet Count 202 K/uL (130-400); RDW Coefficient of Variation 13.2 % (11.5-14.5); RDW Standard Deviation 40.9 fL (36.4-46.3)
[2024-03-01 06:56] LABS: BUN Creatinine Ratio 22.3 (10-20); Calcium 9.2 mg/dl (8.6-10.3); Creatinine Clr Calc Pharmacy 56.9 ml/min
[2024-03-01 07:01] LABS: ANTI-Xa, UFH(UnfractionatedHep < 0.10 IU/ml (0.3-0.7)
--- NOTE | 2024-03-01 09:06 | Pre Anesthesia Assessment ---
Date of Service March 01, 2024 Pre Sedation Assessment Vital Signs Temp Pulse Pulse Pulse Resp BP Pulse Ox 03/01/24 08:22 36.8 C 74 20 148/80 H 96 03/01/24 07:46 36.8 C 96 H 18 169/81 H 94 03/01/24 07:00 73 03/01/24 04:00 36.6 C 67 18 136/73 94 02/29/24 23:00 36.5 C 67 18 171/86 H 93 02/29/24 21:44 68 02/29/24 19:45 02/29/24 19:33 36.8 C 67 18 137/75 93 02/29/24 15:38 36.5 C 71 16 145/80 H 93 02/29/24 14:55 62 02/29/24 11:35 36.9 C 61 16 159/91 H 97 O2 Del Method 03/01/24 08:22 Room Air 03/01/24 07:46 Room Air 03/01/24 07:00 03/01/24 04:00 Room Air 02/29/24 23:00 Room Air 02/29/24 21:44 02/29/24 19:45 Room Air 02/29/24 19:33 Room Air 02/29/24 15:38 Room Air 02/29/24 14:55 02/29/24 11:35 Room Air Cardiovascular RRR, no murmur, no edema Respiratory normal respiratory effort, lungs clear to auscultation Pre-Sedation Airway Assessment Smoking Status: Current every day smoker Hx Sleep Apnea: No Short, Thick Neck: No Thyromental Distance: > or= 3.5 Finger Breadths Oral Cavity: + WNL Mallampati Class: II ASA: ASA3 NPO Status Date of Last Intake of Fluids: 02/29/24 Time of Last Intake of Fluids: 18:00 Date of Last Intake of Solid Food: 02/29/24 Time of Last Intake of Solid Foods: 18:00 Procedure Planning Contraindications for Sedation: none Current Medications Reviewed: Yes Notes The planned sedation has been discussed with the patient. Informed Consent was obtained. I have identified the patient, determined the appropriateness of sedation and have assessed the patient immediately prior to the procedure. All medicine(s) and interventions are by my order.
--- NOTE | 2024-03-01 09:06 | History & Physical Bridge Note ---
Date of Service March 01, 2024 History & Physical Bridge Note Patient for a right lower extremity angio with possible intervention. I have discussed the risks options and benefits of the procedure with the patient. The patient understands the risks options and benefits and agrees to the procedure. I have examined the patient, reviewed the History & Physical and in the interval since the performance of the History & Physical I have noted the following changes of clinical significance: no changes noted
[2024-03-01] MEDS: LIDOCAINE 1% LOCAL 20 ML VIAL ONE (09:36)
[2024-03-01] MEDS: MIDAZOLAM HCL 1 MG/ML 2ML VIAL ONE (09:41)
[2024-03-01] MEDS: fentaNYL citrate PF 100 MCG/2 ML VIAL ONE (09:41)
[2024-03-01] MEDS: VISIPAQUE IV PRN (09:50)
--- NOTE | 2024-03-01 10:06 | Post Anesthesia Assessment ---
Date of Service March 01, 2024 Post Sedation Assessment Vital Signs Temp Pulse Pulse Pulse Resp BP Pulse Ox 03/01/24 09:56 73 16 149/85 H 97 03/01/24 09:50 72 16 140/78 97 03/01/24 09:46 70 16 139/82 97 03/01/24 09:45 74 16 148/79 H 97 03/01/24 09:40 73 16 153/81 H 98 03/01/24 09:35 74 16 134/84 98 03/01/24 09:30 72 16 160/68 H 100 03/01/24 08:22 36.8 C 74 20 148/80 H 96 03/01/24 08:00 03/01/24 07:46 36.8 C 96 H 18 169/81 H 94 03/01/24 07:00 73 03/01/24 04:00 36.6 C 67 18 136/73 94 02/29/24 23:00 36.5 C 67 18 171/86 H 93 02/29/24 21:44 68 02/29/24 19:45 02/29/24 19:33 36.8 C 67 18 137/75 93 02/29/24 15:38 36.5 C 71 16 145/80 H 93 02/29/24 14:55 62 02/29/24 11:35 36.9 C 61 16 159/91 H 97 O2 Del Method O2 Flow Rate 03/01/24 09:56 Oxymask 3 03/01/24 09:50 Oxymask 3 03/01/24 09:46 Oxymask 3 03/01/24 09:45 Oxymask 3 03/01/24 09:40 Oxymask 3 03/01/24 09:35 Oxymask 3 03/01/24 09:30 Oxymask 3 03/01/24 08:22 Room Air 03/01/24 08:00 Room Air 03/01/24 07:46 Room Air 03/01/24 07:00 03/01/24 04:00 Room Air 02/29/24 23:00 Room Air 02/29/24 21:44 02/29/24 19:45 Room Air 02/29/24 19:33 Room Air 02/29/24 15:38 Room Air 02/29/24 14:55 02/29/24 11:35 Room Air Recovery Score Activity: Moves 4 extremities Respiration: Deep Breath/Cough Circulation: +/-20% PreAnes Value Consciousness: Arouseable (by name) Oxygen Saturation: > 92% On Room Air Post Anesthesia Score: 9 Discharge Sedation Level of Care: Fast Track Phase II Post Sedation Plan On clinical assessment, the patient appears to have tolerated the sedation without complications. Patient is recovering as anticipated. Patient will continue to be monitored by nursing and may be discharged when sedation discharge criteria are met per below protocol. Upon Completions of procedure up to 15 minutes continue every 5 minute vital signs and the P.A.R. score; then discharge to a Phase I or Fast Track to Phase II per the following guidelines: * Discharge Patient to appropriate Phase II area if PAR is 8 or greater or return to pre- procedure baseline. The post - procedure orders will be as directed. * If PAR score is less than 8 or not return to pre-procedure baseline then patient will follow Phase I monitoring till PAR is reached for Phase II. The Phase I may be done in procedure room or may call to secure a Phase I area. * If naloxone or flumazenil are used for reversal, hold in Phase I for continued monitoring from when last reversal dose was given for a minimum of 60 minutes or longer pending the nurse and/or physician discretion of patient condition before discharge to Phase II. Please call the Sedation Physician to re-evaluate and complete post-note for discharge to Phase II area. Do NOT discharge from procedure sedation or Phase 1 until post- sedation evaluation note is complete by procedure /sedation MD Sedation Discharge Instructions to be given to the patient at discharge to home.
--- NOTE | 2024-03-01 10:10 | Procedure Note ---
Angiogram Post Procedure Fluoroscopy Time (minutes): 3.1 Conscious Sedation Time (minutes): 24 Radiation (mGy): 23 Contrast: 50 Post Operative Report Pre & Post Diagnosis Operation Date: 03/01/24 09:00 Pre-Op Diagnosis: Gangrene Right Foot Post-Op Diagnosis: Gangrene Right Foot I identified the patient and participated in the time-out.: Yes Procedure Operation Date: 03/01/24 09:00 Actual Procedures p Right Lower Extremity Arteriogram, Ultrasound Localization of the Left Common Femoral Artery, Mechanical Closure of the Left Femoral Artery, Moderate Sedation 09:33 - 09:57(Right) - Nate Snow MD Surgeon Nate Snow MD Pre Sales Network Engineer None Estimated Blood Loss 5 Findings Consistent with Post-Op Diagnosis Specimens none Anesthesia Type RN Sedation Complications none Disposition Accompanied Patient To Recovery: No Disposition: Recovery Room Indications This is a 78-year-old gentleman ongoing amputation of his right great toe has developed ongoing gangrene of the foot. He does have peripheral vascular disease of the right lower extremity. Arteriography possible invention was recommended. I have discussed the risks options and benefits of the procedure with the patient. The patient understands the risks options and benefits and agrees to the procedure. Description of Procedure The patient was taken the angio suite placed spine position. After both groins were prepped and draped in sterile manner a timeout was performed and the patient was identified. Using ultrasound the left common femoral artery was identified. It was good caliber and had good flow. Under ultrasound guidance the left common femoral artery was punctured and 5 Malay sheath inserted. Using a rim cath and an 035 Glidewire the right iliac was cannulated from the left side. The rim cath was advanced down to the distal external iliac artery. Right lower extremity arteriography was performed. This showed the common and profundofemoral arteries be widely patent. The superficial femoral artery was occluded at its origin. It reconstituted a short small segment of the popliteal at the level of the anterior tibial. The tibioperoneal trunk was occluded as well as the peroneal and proximal posterior tibialis. The posterior tibial artery was patent from the mid third of the calf all the way down to the foot supplying the pedal vessels. The peroneal is totally occluded. The anterior tibial had a narrowing at its origin through the interosseous membrane and then was patent down to the foot with sluggish flow. No intervention was contemplated at this time due to the length of the occlusion. The rim catheter was removed. The puncture site was closed using a Star closure device. Adequate hemostasis was noted. Sterile dressings were applied to the wound.The patient left the operation room in satisfactory condition and tolerated the procedure well. All needle and sponge counts were correct at the end of the procedure. I attest to the content of the Intraoperative Record and any orders documented therein. Any exceptions are noted below.
[2024-03-01] MEDS: HEPARIN SOD (PORCINE) 1000 UNIT/ML ONE (11:39)
[2024-03-01] MEDS: Heparin IV Adult Wt-Based Standard w/ INITIAL Bolus Protocol IV STA (11:47)
[2024-03-01] MEDS: HEPARIN SOD (PORCINE) 1000 UNIT/ML IV ONE (12:00)
[2024-03-01] MEDS: HEPARIN 25000 UNIT/500 ML 25,000 UNITS/500 ML BAG IV SCH (12:01)
--- NOTE | 2024-03-01 12:29 | Hospitalist Progress Note ---
Date of Service March 01, 2024 Assessment & Plan (1) Gangrene of right foot: Plan 78-year-old male who recently moved from [place], with PMH of HTN, DM, depression, ongoing tobacco use, heavy alcohol use [no drinking since last 6 months as per patient] who lives alone at home presented to the ED 02/19 with complaint of fall and found to have flu positive. Patient was feeling weak and fatigued. He slid from bed and fell down and he could not get up, he thinks he laid on the floor for 1 to 1 and half days and was finally able to call 911 and was brought in here. 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 hx of diabetic neuropathy with amputation of 5th toe of right foot MRI foot positive for acute osteomyelitis involving second toe proximal phalanx and head/neck of the second metatarsal. Possible septic arthritis involving the second MTP joint. 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 BLE extensive atherosclerotic disease. 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 Patient underwent left leg angiogram on 03/01 which showed occluded superficial f emoral artery at its origin; peroneal is totally occluded. full details in procedure ote Wound culture shows Staph aureus, group B strep agalactiae. Infectious disease evaluated and recommended cefazolin; PICC line placed on 02/26. Plan for right femoral to posterior tibial bypass by vascular surgery on 03/04; continue on heparin drip. I updated clinical course, plan to patient's son and ex- over the phone on 02/28. Also discussed with patient's son again on 03/01 regarding possible need for more amputation given the degree of gangrene, even possibly BKA. He verbalized understanding and is agreeable with the plan. Podiatry on board as well who agree with the plan. Generalized weakness Influenza A Patient presented with flulike symptoms, generalized tiredness/fatigue Respiratory viral panel positive for influenza A Chest x-ray does not show infiltrates s/p Tamiflu droplet precautions discontinued on 02/28/2023 PT OT eval Elevated high sensitive troponin of undetermined significance in setting of influenza A high sensitivity elevated with no significant delta difference. Echo with EF. of 60-65%, grade I diastolic dysfunction, Left ventricle wall motion normal. Cardiology evaluated, appreciate recommendation. c/w crestor, OP ischemic w/u. Monitor replete electrolytes. Elevated CPK: resolved. History of hypertension: Continue home metoprolol tartrate and triamterene/hydrochlorothiazide and potassium supplement. Will monitor Depression: On Zoloft Type 2 Diabetes on long-acting insulin 20 units nightly For now will place on insulin sliding scale and monitor a1c 6.4 this admisison needs to establish new PCP Full code dvt prophylaxis : pt on hep drip, see above. Time spent evaluating patient, direct bedside care, chart review, placing order s, interpretation of diagnostic studies, discussion with consultants, patient, and family members, as well as other required patient management activities is 75-minute Please note the above document was generated using voice recognition software. It may contain grammatical, syntax or spelling errors. Any formal questions or concerns about the content, text or information contained within the body of this dictation should be directly addressed to the provider for clarification Admission and Anticipated Discharge Date Admission Date: February 20, 2024 Subjective Patient seen and examined at bedside multiple times during the day including before surgery, after surgery and in afternoon. He is awake, alert oriented x 3; denies any pain or discomfort. Vital signs are stable. No significant events overnight Review of Systems Review of Systems: All systems reviewed & are unremarkable except as noted in Subjective Physical Exam Physical Exam: Constitutional: Alert oriented x 3; not in distress. RA Respiratory: Bilateral vesicular breath sound, CTA Cardiovascular: RRR, no murmur, no edema Vessels: no JVD or carotid bruit Abdomen: normal bowel sounds, soft, nontender, no hepatosplenomegaly Musculoskeletal: Rt forefoot amputation site c/d/i. There is blackish discoloration of second toe along with discoloration along the aspect of the dorsum of the foot. Patient denies any pain/discomfort. Neurologic: PERRL, EOMI, accommodation nl, no face palsy, no dysarthria CN's II- XI intact bilaterally and moves all extremities Psychiatric: A+Ox3, euthymic affect Results & Data Results & Data Vital Signs (Past 12 Hours) Vital Signs Temp Pulse Pulse Pulse Resp BP Pulse Ox 03/01/24 12:00 66 18 138/84 03/01/24 11:30 61 144/78 H 03/01/24 11:00 66 161/89 H 03/01/24 10:50 77 03/01/24 10:45 84 18 162/75 H 03/01/24 10:15 79 18 144/81 H 94 03/01/24 09:56 73 16 149/85 H 97 03/01/24 09:50 72 16 140/78 97 03/01/24 09:46 70 16 139/82 97 03/01/24 09:45 74 16 148/79 H 97 03/01/24 09:40 73 16 153/81 H 98 03/01/24 09:35 74 16 134/84 98 03/01/24 09:30 72 16 160/68 H 100 03/01/24 08:22 36.8 C 74 20 148/80 H 96 03/01/24 08:00 03/01/24 07:46 36.8 C 96 H 18 169/81 H 94 03/01/24 07:00 73 03/01/24 04:00 36.6 C 67 18 136/73 94 O2 Del Method O2 Flow Rate 03/01/24 12:00 03/01/24 11:30 03/01/24 11:00 03/01/24 10:50 03/01/24 10:45 03/01/24 10:15 Room Air 03/01/24 09:56 Oxymask 3 03/01/24 09:50 Oxymask 3 03/01/24 09:46 Oxymask 3 03/01/24 09:45 Oxymask 3 03/01/24 09:40 Oxymask 3 03/01/24 09:35 Oxymask 3 03/01/24 09:30 Oxymask 3 03/01/24 08:22 Room Air 03/01/24 08:00 Room Air 03/01/24 07:46 Room Air 03/01/24 07:00 03/01/24 04:00 Room Air
[2024-03-01] MEDS ORDERED: SODIUM CHLORIDE 0.9% 50 ML IV PRN (14:59)
[2024-03-01] MEDS ORDERED: SODIUM CHLORIDE 0.9% 100 ML IV PRN (14:59)
--- NOTE | 2024-03-01 15:27 | Ultrasound Report ---
US venous mapping LE RT CLINICAL HISTORY: gangrene right foot TECHNIQUE: Real-time grayscale sonographic images of the veins of the right lower extremity were obta ined. Comparison: None available at the time of this dictation. FINDINGS/IMPRESSION: Greater and lesser saphenous veins are compressible throughout with thickened wa lls of the lesser saphenous vein. Measurements are as follows: Right greater saphenous vein Groin: 5 mm in diameter, 15 mm from the skin Proximal: 3.8 mm in diameter, 9 mm from the skin Mid: 3.8 mm in diameter, 5 mm and the skin Distal: 3.4 mm in diameter, 5 mm from the skin Knee: 3.6 mm in diameter, 6 mm from the skin Proximal calf: 3.9 mm in diameter, 3 mm from the skin Proximal branch: 2.4 mm in diameter, 2 mm from the skin Mid: 2.9 mm in diameter, 3 mm from the skin Distal: 3.2 mm in diameter, 2.6 mm from the skin Ankle: 3.4 mm in diameter, 2 mm of the skin Right lesser saphenous vein Knee: 3.3 mm in diameter , 9 mm from the skin Proximal calf: 0.5 mm in diameter, 4 mm from the skin Mid calf: 1 mm in diameter, 0.3 mm from the skin Distal calf: 1.5 mm in diameter, 0.3 mm from the skin. ACT 112: Negative or not required by law. Electronically signed by: Cedric Hussein M.D. 03/01/2024 2:54 PM
[2024-03-01 19:24] LABS: ANTI-Xa, UFH(UnfractionatedHep 0.33 IU/ml (0.3-0.7)
[2024-03-02 01:58] LABS: ANTI-Xa, UFH(UnfractionatedHep 0.27 IU/ml (0.3-0.7)
[2024-03-02 08:53] LABS: Basophils # (auto) 0.05 K/uL (0.00-0.20); Basophils % (auto) 0.4 %; Eosinophils # (auto) 0.12 K/uL (0.00-0.50); Eosinophils % (auto) 1.1 %; Hematocrit (blood only) 41.7 % (42.0-52.0); Hemoglobin 13.8 g/dl (14.0-18.0); Immature Granulocytes # (auto) 0.09 K/uL (0.01-0.20); Immature Granulocytes % (auto) 0.8 %; Lymphocytes # (auto) 1.48 K/uL (1.20-3.40); Lymphocytes % (auto) 13.1 %; Mean Corpuscular Hemoglobin 28.4 pg (25.0-34.0); Mean Corpuscular Hgb Conc 33.1 g/dL (32.0-36.0); Mean Corpuscular Volume 85.8 fL (80.0-100.0); Mean Platelet Volume 8.9 fL (9.4-12.4); Monocytes # (auto) 0.99 K/uL (0.11-0.59); Monocytes % (auto) 8.7 %; Neutrophils # (auto) 8.59 K/uL (1.40-6.50); Neutrophils % (auto) 75.9 %; Platelet Count 197 K/uL (130-400); RDW Coefficient of Variation 13.4 % (11.5-14.5); RDW Standard Deviation 41.3 fL (36.4-46.3); Red Blood Count 4.86 M/uL (4.70-6.10); White Blood Count 11.32 K/ul (4.8-10.8)
--- NOTE | 2024-03-02 09:06 | Hospitalist Progress Note ---
Date of Service March 02, 2024 Assessment & Plan (1) Gangrene of right foot: Plan 78-year-old male who recently moved from [place], with PMH of HTN, DM, depression, ongoing tobacco use, heavy alcohol use [no drinking since last 6 months as per patient] who lives alone at home presented to the ED 02/19 with complaint of fall and found to have flu positive. Patient was feeling weak and fatigued. He slid from bed and fell down and he could not get up, he thinks he laid on the floor for 1 to 1 and half days and was finally able to call 911 and was brought in here. 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 hx of diabetic neuropathy with amputation of 5th toe of right foot MRI foot positive for acute osteomyelitis involving second toe proximal phalanx and head/neck of the second metatarsal. Possible septic arthritis involving the second MTP joint. 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 BLE extensive atherosclerotic disease. 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 Patient underwent left leg angiogram on 03/01 which showed occluded superficial f emoral artery at its origin; peroneal is totally occluded. full details in procedure ote Wound culture shows Staph aureus, group B strep agalactiae. Infectious disease evaluated and recommended cefazolin; PICC line placed on 02/26. Plan for right femoral to posterior tibial bypass by vascular surgery on 03/04; continue on heparin drip. I updated clinical course, plan to patient's son and ex- over the phone on 02/28. Also discussed with patient's son again on 03/01 regarding possible need for more amputation given the degree of gangrene, even possibly BKA . He verbalized understanding and is agreeable with the plan. Podiatry on board as well who agree with the plan. Continue on antibiotic and pain control Generalized weakness Influenza A Patient presented with flulike symptoms, generalized tiredness/fatigue Respiratory viral panel positive for influenza A Chest x-ray does not show infiltrates s/p Tamiflu droplet precautions discontinued on 02/28/2023 PT OT eval Elevated high sensitive troponin of undetermined significance in setting of influenza A high sensitivity elevated with no significant delta difference. Echo with EF. of 60-65%, grade I diastolic dysfunction, Left ventricle wall motion normal. Cardiology evaluated, appreciate recommendation. c/w crestor, OP ischemic w/u. Monitor replete electrolytes. Elevated CPK: resolved. History of hypertension: Continue home metoprolol tartrate and triamterene/hydrochlorothiazide and potassium supplement. Will monitor Depression: On Zoloft Type 2 Diabetes on long-acting insulin 20 units nightly For now will place on insulin sliding scale and monitor a1c 6.4 this admisison needs to establish new PCP Full code dvt prophylaxis : pt on hep drip, see above. Time spent evaluating patient, direct bedside care, chart review, placing orders, interpretation of diagnostic studies, discussion with consultants, patient, and family members, as well as other required patient management activities is 50 minutes Please note the above document was generated using voice recognition software. It may contain grammatical, syntax or spelling errors. Any formal questions or concerns about the content, text or information contained within the body of this dictation should be directly addressed to the provider for clarification Admission and Anticipated Discharge Date Admission Date: February 20, 2024 Subjective Patient seen and examined at bedside. Comfortable; not in distress. Denies fever, chills, chest pain, shortness of breath, abdominal pain or urinary symptoms. No significant overnight events Review of Systems Review of Systems: All systems reviewed & are unremarkable except as noted in Subjective Physical Exam Physical Exam: Constitutional: Alert oriented x 3; not in distress. RA Respiratory: Bilateral vesicular breath sound, CTA Cardiovascular: RRR, no murmur, no edema Vessels: no JVD or carotid bruit Abdomen: normal bowel sounds, soft, nontender, no hepatosplenomegaly Musculoskeletal: Rt forefoot amputation site c/d/i. There is blackish discoloration of second toe along with discoloration along the aspect of the dorsum of the foot. Patient denies any pain/discomfort. Neurologic: PERRL, EOMI, accommodation nl, no face palsy, no dysarthria CN's II- XI intact bilaterally and moves all extremities Psychiatric: A+Ox3, euthymic affect Results & Data Results & Data Vital Signs (Past 12 Hours) Vital Signs Temp Pulse Pulse Resp BP Pulse Ox O2 Del Method 03/02/24 07:04 36.9 C 67 18 179/97 H 94 Room Air 03/02/24 03:01 36.8 C 67 18 167/82 H 95 Room Air 03/02/24 00:00 94 H 03/02/24 00:00 Room Air 03/01/24 22:50 36.8 C 83 18 138/76 92 Room Air
[2024-03-02 09:12] LABS: BUN Creatinine Ratio 21.6 (10-20); Calcium 9.3 mg/dl (8.6-10.3); Creatinine Clr Calc Pharmacy 72.5 ml/min; Potassium 4.1 mmol/L (3.5-5.1)
[2024-03-02 09:22] LABS: ANTI-Xa, UFH(UnfractionatedHep 0.25 IU/ml (0.3-0.7)
[2024-03-02 16:31] LABS: ANTI-Xa, UFH(UnfractionatedHep 0.28 IU/ml (0.3-0.7)
[2024-03-02 23:46] LABS: ANTI-Xa, UFH(UnfractionatedHep 0.29 IU/ml (0.3-0.7)
[2024-03-03 06:42] LABS: Basophils # (auto) 0.06 K/uL (0.00-0.20); Basophils % (auto) 0.5 %; Eosinophils # (auto) 0.13 K/uL (0.00-0.50); Eosinophils % (auto) 1.1 %; Hematocrit (blood only) 41.1 % (42.0-52.0); Hemoglobin 13.8 g/dl (14.0-18.0); Immature Granulocytes # (auto) 0.09 K/uL (0.01-0.20); Immature Granulocytes % (auto) 0.8 %; Lymphocytes # (auto) 1.39 K/uL (1.20-3.40); Lymphocytes % (auto) 11.7 %; Mean Corpuscular Hemoglobin 28.8 pg (25.0-34.0); Mean Corpuscular Hgb Conc 33.6 g/dL (32.0-36.0); Mean Corpuscular Volume 85.6 fL (80.0-100.0); Mean Platelet Volume 9.3 fL (9.4-12.4); Monocytes # (auto) 0.98 K/uL (0.11-0.59); Monocytes % (auto) 8.2 %; Neutrophils # (auto) 9.24 K/uL (1.40-6.50); Neutrophils % (auto) 77.7 %; Platelet Count 226 K/uL (130-400); RDW Coefficient of Variation 13.4 % (11.5-14.5); RDW Standard Deviation 41.3 fL (36.4-46.3); White Blood Count 11.89 K/ul (4.8-10.8)
[2024-03-03 07:08] LABS: BUN Creatinine Ratio 29.1 (10-20); Calcium 9.4 mg/dl (8.6-10.3); Creatinine Clr Calc Pharmacy 68.7 ml/min; Potassium 4.2 mmol/L (3.5-5.1)
[2024-03-03 07:26] LABS: ANTI-Xa, UFH(UnfractionatedHep 0.34 IU/ml (0.3-0.7)
[2024-03-03] MEDS ORDERED: CELECOXIB 100 MG CAP PO PRN (11:31)
--- NOTE | 2024-03-03 11:33 | Hospitalist Progress Note ---
Date of Service March 03, 2024 Assessment & Plan (1) Gangrene of right foot: Plan 78-year-old male who recently moved from [place], with PMH of HTN, DM, depression, ongoing tobacco use, heavy alcohol use [no drinking since last 6 months as per patient] who lives alone at home presented to the ED 02/19 with complaint of fall and found to have flu positive. Patient was feeling weak and fatigued. He slid from bed and fell down and he could not get up, he thinks he laid on the floor for 1 to 1 and half days and was finally able to call 911 and was brought in here. 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 hx of diabetic neuropathy with amputation of 5th toe of right foot MRI foot positive for acute osteomyelitis involving second toe proximal phalanx and head/neck of the second metatarsal. Possible septic arthritis involving the second MTP joint. 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 BLE extensive atherosclerotic disease. 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 Patient underwent left leg angiogram on 03/01 which showed occluded superficial f emoral artery at its origin; peroneal is totally occluded. full details in procedure ote Wound culture shows Staph aureus, group B strep agalactiae. Infectious disease evaluated and recommended cefazolin; PICC line placed on 02/26. Plan for right femoral to posterior tibial bypass by vascular surgery on 03/04; continue on heparin drip. I updated clinical course, plan to patient's son and ex- over the phone on 02/28. Also discussed with patient's son again on 03/01 regarding possible need for more amputation given the degree of gangrene, even possibly BKA . He verbalized understanding and is agreeable with the plan. Podiatry on board as well who agree with the plan. Continue on antibiotic and pain control Generalized weakness Influenza A Patient presented with flulike symptoms, generalized tiredness/fatigue Respiratory viral panel positive for influenza A Chest x-ray does not show infiltrates s/p Tamiflu droplet precautions discontinued on 02/28/2023 PT OT eval Elevated high sensitive troponin of undetermined significance in setting of influenza A high sensitivity elevated with no significant delta difference. Echo with EF. of 60-65%, grade I diastolic dysfunction, Left ventricle wall motion normal. Cardiology evaluated, appreciate recommendation. c/w crestor, OP ischemic w/u. Monitor replete electrolytes. Elevated CPK: resolved. History of hypertension: Continue home metoprolol tartrate and triamterene/hydrochlorothiazide and potassium supplement. Will monitor Depression: On Zoloft Type 2 Diabetes on long-acting insulin 20 units nightly For now will place on insulin sliding scale and monitor a1c 6.4 this admisison needs to establish new PCP Full code dvt prophylaxis : pt on hep drip, see above. Time spent evaluating patient, direct bedside care, chart review, placing orders, interpretation of diagnostic studies, discussion with consultants, patient, and family members, as well as other required patient management activities is 50 minutes Please note the above document was generated using voice recognition software. It may contain grammatical, syntax or spelling errors. Any formal questions or concerns about the content, text or information contained within the body of this dictation should be directly addressed to the provider for clarification Admission and Anticipated Discharge Date Admission Date: February 20, 2024 Subjective Patient seen and examined at bedside He is comfortable; not in distress Vital signs are stable. He is afebrile and saturating well on room air No significant events overnight Review of Systems Review of Systems: All systems reviewed & are unremarkable except as noted in Subjective Physical Exam Physical Exam: Constitutional: Alert oriented x 3; not in distress. RA Respiratory: Bilateral vesicular breath sound, CTA Cardiovascular: RRR, no murmur, no edema Vessels: no JVD or carotid bruit Abdomen: normal bowel sounds, soft, nontender, no hepatosplenomegaly Musculoskeletal: Rt forefoot amputation site c/d/i. There is blackish discoloration of second toe along with discoloration along the aspect of the dorsum of the foot. Patient denies any pain/discomfort. Neurologic: PERRL, EOMI, accommodation nl, no face palsy, no dysarthria CN's II- XI intact bilaterally and moves all extremities Psychiatric: A+Ox3, euthymic affect Results & Data Results & Data Vital Signs (Past 12 Hours) Vital Signs Temp Pulse Pulse Resp BP Pulse Ox O2 Del Method 03/03/24 07:59 Room Air 03/03/24 07:48 36.3 C L 68 18 132/78 92 Room Air 03/03/24 07:35 64 03/03/24 02:50 37.1 C 66 18 151/80 H 93 Room Air
[2024-03-04] MEDS ORDERED: ROCURONIUM BROMIDE 10 MG/ML 5 ML VIAL IV ONE (06:55)
[2024-03-04] MEDS ORDERED: PHENYLEPHRINE HCL 25 MG/250 ML NSS IV ONE (06:55)
[2024-03-04] MEDS ORDERED: PROPOFOL IV EMULSION 10 MG/ML 20 ML VIAL IV ONE (06:55)
[2024-03-04] MEDS ORDERED: LIDOCAINE 2% 2 ML VIAL/AMP(20MG/ML) INFIL ONE (06:55)
[2024-03-04] MEDS ORDERED: fentaNYL citrate PF 100 MCG/2 ML VIAL ONE ×2 (06:56→11:10)
[2024-03-04] MEDS ORDERED: HEPARIN SOD (PORCINE) 1000 UNIT/ML ONE (06:56)
[2024-03-04] MEDS ORDERED: MIDAZOLAM HCL 1 MG/ML 2ML VIAL ONE (07:11)
--- NOTE | 2024-03-04 07:29 | Anesthesiology Consultation ---
Date of Service March 04, 2024 Assessment & Plan Consults Requested medical & cardiac Pulmonary ASA ASA4 Proposed Anesthesia Anesthesia Type: General Anesthesia Line Insertion: Arterial line Risk / Benefits Reviewed With: PT / POA / Parent / Guardian, Accepts Plan and Informed Consent Obtained History Surgery Operation Date: 02/22/24 09:00 Proposed Procedures p Right Second Toe Amputation - Donato Oakes DPM Operation Date: 03/01/24 09:00 Proposed Procedures p Right Lower Extremity Arteriogram Possible Intervention - Nate Snow MD Operation Date: 03/04/24 08:00 Proposed Procedures p Right Femoral to Posterior Tibial Bypass - Nate Snow MD Pt with history of HTN, DM2, +smoking, Peripheral Vascular Disease, R SFA thrombosis, Osteomyelitis. Height/Weight Height: 5 ft 10 in Weight: 66 kg Allergies Allergy/AdvReac Type Severity Reaction Status Date / Time No Known Allergies Allergy Unverified 02/22/24 08:22 Medications Home Medications Medication Instructions Recorded Confirmed Last Taken insulin glargine 100 unit/mL (3 20 unit subcut UD 02/20/24 02/20/24 Unknown mL) subcutaneous pen (Basaglar KwikPen U-100 Insulin) metoprolol tartrate 100 mg tablet 100 mg PO BID 02/20/24 02/20/24 Unknown potassium chloride 20 mEq 20 meq PO BID 02/20/24 02/20/24 Unknown tablet,extended release(part/cryst) sertraline 50 mg tablet 50 mg PO BID 02/20/24 02/20/24 Unknown thiamine HCl (vitamin B1) 100 mg 100 mg PO DAILY 02/20/24 02/20/24 Unknown tablet triamterene 75 1 tab PO DAILY 02/20/24 02/20/24 Unknown mg-hydrochlorothiazide 50 mg tablet Active Medications Generic Name Dose Route Start Last Admin Trade Name Freq PRN Reason Stop Dose Admin Acetaminophen 650 mg 02/20/24 10:33 03/03/24 20:10 Acetaminophen 325 Mg Tab PO 03/21/24 10:32 650 mg Q4H PRN Administration Pain or Fever Aspirin 81 mg 02/20/24 15:15 03/03/24 07:57 Aspirin 81 Mg Ectab PO 03/21/24 15:14 81 mg QAM ESTEFANI Administration Heparin Sodium (Beef Lung) 5 ml 02/28/24 15:25 02/29/24 08:02 Heparin 10 Unit/Ml 5 Ml Flush FLUSH 03/29/24 15:24 5 ml PRN PRN Administration Flush Hydroxyzine HCl 25 mg 02/21/24 07:44 02/27/24 14:54 Hydroxyzine Hcl 25 Mg Tab PO 03/22/24 07:43 25 mg Q8H PRN Administration Anxiety Cefazolin Sodium 2,000 mg in 15 mls @ 3.75 mls/min 02/27/24 15:00 03/04/24 06:44 Ancef 2000mg IV 04/09/24 14:59 3.75 mls/min Q8H ESTEFANI Administration Heparin Sodium/Dextrose 25,000 units in 500 mls @ 28 mls/hr 03/01/24 11:15 03/03/24 19:29 Heparin Sodium/Dextrose IV 03/31/24 11:14 1,400 units/hr .[id number] ESTEFANI 28 mls/hr Administration Protocol 1,400 UNITS/HR Insulin Aspart 0 units 02/20/24 11:30 03/03/24 21:15 Insulin Aspart Per Unit Charge SC 03/21/24 11:29 3 units ACHS ESTEFANI Administration Lactobacillus Acidophilus 1,250 mg 02/21/24 15:30 03/03/24 07:57 Advanced Probiotic 625 Mg Capsule PO 03/22/24 15:29 1,250 mg DAILY ESTEFANI Administration Levalbuterol HCl 1.25 mg 02/20/24 10:33 02/26/24 07:34 Levalbuterol 1.25 Mg/3 Ml Neb NEB 03/21/24 10:32 1.25 mg Q4R PRN Administration Shortness Of Breath Or Wheezing Loperamide HCl 2 mg 02/25/24 14:00 03/01/24 21:51 Loperamide Hcl 2 Mg Cap PO 03/24/24 16:35 2 mg Q3H PRN Administration Loose Stool Metoprolol Tartrate 100 mg 02/20/24 10:33 03/03/24 20:10 Metoprolol Tartrate 100 Mg Tab PO 03/21/24 10:32 100 mg BID ESTEFANI Administration Oxycodone HCl 5 mg 02/22/24 12:30 03/03/24 22:36 Oxycodone Hcl Ir 5 Mg Tab (Immediate Release) PO 03/07/24 12:29 5 mg Q4H PRN Administration modeate to severe pain Potassium Chloride 20 meq 02/20/24 10:33 03/03/24 20:09 Potassium Chloride Crtab 20 Meq Tabcr PO 03/21/24 10:32 20 meq BID ESTEFANI Administration Psyllium Hydrophilic Mucilloid 4 gm 02/21/24 15:30 03/03/24 07:57 Psyllium Or Guar Gum Fiber 4gm Packet PO 03/22/24 15:29 4 gm QAM ESTEFANI Administration Rosuvastatin Calcium 10 mg 02/23/24 09:00 03/03/24 07:57 Rosuvastatin Calcium 10 Mg Tab PO 03/24/24 08:59 10 mg QAM ESTEFANI Administration Sertraline HCl 50 mg 02/20/24 10:33 03/03/24 20:10 Sertraline Hcl 50 Mg Tablet PO 03/21/24 10:32 50 mg BID ESTEFANI Administration Thiamine HCl 100 mg 02/20/24 10:33 03/03/24 07:57 Thiamine Hcl 100 Mg Tab PO 03/21/24 10:32 100 mg DAILY ESTEFANI Administration Triamterene/Hydrochlorothiazide 1 tab 02/20/24 10:33 03/03/24 07:57 Triamterene/Hctz 37.5/25mg Tab PO 03/21/24 10:32 1 tab DAILY ESTEFANI Administration NPO Date Last Intake of Fluids: 02/29/24 Time Last Intake of Fluids: 18:00 Date Last Intake of Solids: 02/29/24 Time Last Intake of Solids: 18:00 Exercise / Class Metabolic Activity III < 4 Walking/Shop/Light housework Past Anesthesia History No Hx of Anesthesia Complications and No Family Hx of Anesthesia Complications History of PONV No Hx of PONV and No Hx of Motion Sickness Social History Smoking Status: Current every day smoker Do You Dip or Chew Tobacco: No Hx Alcohol Use: No Alcohol Intake Frequency Comment: h/o alcohol abuse Hx Substance Use: No substance use type: does not use Physical Exam Vital Signs Last Vital Signs Temp 37.2 C 03/04/24 07:24 Pulse 65 03/04/24 07:24 Resp 20 03/04/24 07:24 BP 161/83 H 03/04/24 07:24 Pulse Ox 93 03/04/24 07:24 O2 Del Method Room Air 03/04/24 07:24 O2 Flow Rate 3 03/01/24 09:56 Constitutional no acute distress ENMT Mouth: + dentition abnormality and + edentulous Thyromental Distance: > or= 3.5 Finger Breadths Mallampati Class: II single remaining tooth; upper edentulous Neck normal visual inspection Respiratory normal respiratory effort; no respiratory distress Auscultation: lungs clear to auscultation bilaterally Cardiovascular Rate/Rhythm: regular rate and regular rhythm Heart Sounds: no murmur Musculoskeletal Spine: normal cervical ROM Psychiatric Orientation: alert and oriented x 3 Testing Laboratory Results 03/03/24 06:25 03/03/24 06:25 PT 11.4 Seconds (9.0-12.0) 02/23/24 16:59 INR 1.1 (0.9-1.1) 02/23/24 16:59 APTT 34 Seconds (21-31) H 02/23/24 16:59 Hemoglobin A1c 6.4 % (4.5-5.6) H 02/21/24 05:29 Urine Color Yellow 02/20/24 02:21 Urine Appearance Clear (Clear) 02/20/24 02:21 Urine pH 5.0 (4.5-7.5) 02/20/24 02:21 Ur Specific [place] 1.022 (1.000-1.030) 02/20/24 02:21 Urine Protein 1+ (Negative) H 02/20/24 02:21 Urine Glucose (UA) Negative (Negative) 02/20/24 02:21 Urine Ketones 2+ (Negative) H 02/20/24 02:21 Urine Nitrite Negative (Negative) 02/20/24 02:21 Ur Leukocyte Esterase Negative (Negative) 02/20/24 02:21 Urine WBC (Auto) 0-5 /hpf (0-5) 02/20/24 02:21 Urine RBC (Auto) 0-2 /hpf (0-2) 02/20/24 02:21 U Hyaline Cast (Auto) 6-10 /lpf (0-2) H 02/20/24 02:21 U Epithel Cells (Auto) 0-2 /hpf (0-2) 02/20/24 02:21 Urine Bacteria (Auto) None Seen (None Seen) 02/20/24 02:21 Blood Type AB Positive 03/01/24 15:08 Antibody Screen NEGATIVE 03/01/24 15:08 02/22/24 09:15 Gram Stain - Final Toe,Right Second Aerobic and Anaerobic Culture - Final Staphylococcus aureus Strep agalactiae (group B) 02/20/24 02:12 Aerobic Blood Culture - Final Blood No growth in Aerobic bottle after 5 days. Anaerobic Blood Culture - Final No growth in Anaerobic bottle after 5 days. 02/20/24 02:20 Aerobic Blood Culture - Final Blood No growth in Aerobic bottle after 5 days. Anaerobic Blood Culture - Final No growth in Anaerobic bottle after 5 days. 03/04/24 03/03/24 07:22 20:27 POC Glucose 154 H 229 H Electrocardiogram Date: 02/22/24 Normal sinus rhythm with sinus arrhythmia Non-specific intra-ventricular conduction delay Nonspecific ST abnormality Anterolateral leads Abnormal ECG Day of Procedure Evaluation. Date of Surgery March 04, 2024 Height/Weight Height: 5 ft 10 in Weight: 66 kg Vital Signs Last Vital Signs Temp 37.2 C 03/04/24 07:24 Pulse 65 03/04/24 07:24 Resp 20 03/04/24 07:24 BP 161/83 H 03/04/24 07:24 Pulse Ox 93 03/04/24 07:24 O2 Del Method Room Air 03/04/24 07:24 O2 Flow Rate 3 03/01/24 09:56 Allergies Allergy/AdvReac Type Severity Reaction Status Date / Time No Known Allergies Allergy Unverified 02/22/24 08:22 Medications Home Medications Medication Instructions Recorded Confirmed Last Taken insulin glargine 100 unit/mL (3 20 unit subcut UD 02/20/24 02/20/24 Unknown mL) subcutaneous pen (Basaglar KwikPen U-100 Insulin) metoprolol tartrate 100 mg tablet 100 mg PO BID 02/20/24 02/20/24 Unknown potassium chloride 20 mEq 20 meq PO BID 02/20/24 02/20/24 Unknown tablet,extended release(part/cryst) sertraline 50 mg tablet 50 mg PO BID 02/20/24 02/20/24 Unknown thiamine HCl (vitamin B1) 100 mg 100 mg PO DAILY 02/20/24 02/20/24 Unknown tablet triamterene 75 1 tab PO DAILY 02/20/24 02/20/24 Unknown mg-hydrochlorothiazide 50 mg tablet Active Medications Generic Name Dose Route Start Last Admin Trade Name Freq PRN Reason Stop Dose Admin Acetaminophen 650 mg 02/20/24 10:33 03/03/24 20:10 Acetaminophen 325 Mg Tab PO 03/21/24 10:32 650 mg Q4H PRN Administration Pain or Fever Aspirin 81 mg 02/20/24 15:15 03/03/24 07:57 Aspirin 81 Mg Ectab PO 03/21/24 15:14 81 mg QAM ESTEFANI Administration Heparin Sodium (Beef Lung) 5 ml 02/28/24 15:25 02/29/24 08:02 Heparin 10 Unit/Ml 5 Ml Flush FLUSH 03/29/24 15:24 5 ml PRN PRN Administration Flush Hydroxyzine HCl 25 mg 02/21/24 07:44 02/27/24 14:54 Hydroxyzine Hcl 25 Mg Tab PO 03/22/24 07:43 25 mg Q8H PRN Administration Anxiety Cefazolin Sodium 2,000 mg in 15 mls @ 3.75 mls/min 02/27/24 15:00 03/04/24 06:44 Ancef 2000mg IV 04/09/24 14:59 3.75 mls/min Q8H ESTEFANI Administration Heparin Sodium/Dextrose 25,000 units in 500 mls @ 28 mls/hr 03/01/24 11:15 03/03/24 19:29 Heparin Sodium/Dextrose IV 03/31/24 11:14 1,400 units/hr .[id number] ESTEFANI 28 mls/hr Administration Protocol 1,400 UNITS/HR Insulin Aspart 0 units 02/20/24 11:30 03/03/24 21:15 Insulin Aspart Per Unit Charge SC 03/21/24 11:29 3 units ACHS ESTEFANI Administration Lactobacillus Acidophilus 1,250 mg 02/21/24 15:30 03/03/24 07:57 Advanced Probiotic 625 Mg Capsule PO 03/22/24 15:29 1,250 mg DAILY ESTEFANI Administration Levalbuterol HCl 1.25 mg 02/20/24 10:33 02/26/24 07:34 Levalbuterol 1.25 Mg/3 Ml Neb NEB 03/21/24 10:32 1.25 mg Q4R PRN Administration Shortness Of Breath Or Wheezing Loperamide HCl 2 mg 02/25/24 14:00 03/01/24 21:51 Loperamide Hcl 2 Mg Cap PO 03/24/24 16:35 2 mg Q3H PRN Administration Loose Stool Metoprolol Tartrate 100 mg 02/20/24 10:33 03/03/24 20:10 Metoprolol Tartrate 100 Mg Tab PO 03/21/24 10:32 100 mg BID ESTEFANI Administration Oxycodone HCl 5 mg 02/22/24 12:30 03/03/24 22:36 Oxycodone Hcl Ir 5 Mg Tab (Immediate Release) PO 03/07/24 12:29 5 mg Q4H PRN Administration modeate to severe pain Potassium Chloride 20 meq 02/20/24 10:33 03/03/24 20:09 Potassium Chloride Crtab 20 Meq Tabcr PO 03/21/24 10:32 20 meq BID ESTEFANI Administration Psyllium Hydrophilic Mucilloid 4 gm 02/21/24 15:30 03/03/24 07:57 Psyllium Or Guar Gum Fiber 4gm Packet PO 03/22/24 15:29 4 gm QAM ESTEFANI Administration Rosuvastatin Calcium 10 mg 02/23/24 09:00 03/03/24 07:57 Rosuvastatin Calcium 10 Mg Tab PO 03/24/24 08:59 10 mg QAM ESTEFANI Administration Sertraline HCl 50 mg 02/20/24 10:33 03/03/24 20:10 Sertraline Hcl 50 Mg Tablet PO 03/21/24 10:32 50 mg BID ESTEFANI Administration Thiamine HCl 100 mg 02/20/24 10:33 03/03/24 07:57 Thiamine Hcl 100 Mg Tab PO 03/21/24 10:32 100 mg DAILY ESTEFANI Administration Triamterene/Hydrochlorothiazide 1 tab 02/20/24 10:33 03/03/24 07:57 Triamterene/Hctz 37.5/25mg Tab PO 03/21/24 10:32 1 tab DAILY ESTEFANI Administration Past Anesthesia History No Hx of Anesthesia Complications and No Family Hx of Anesthesia Complications History of PONV No Hx of PONV and No Hx of Motion Sickness NPO Date Last Intake of Fluids: 02/29/24 Time Last Intake of Fluids: 18:00 Date Last Intake of Solids: 02/29/24 Time Last Intake of Solids: 18:00 HCG & FBG Results 03/04/24 03/03/24 07:22 20:27 POC Glucose 154 H 229 H Home Medications Home Medications Medication Instructions Recorded Confirmed Last Taken insulin glargine 100 unit/mL (3 20 unit subcut UD 02/20/24 02/20/24 Unknown mL) subcutaneous pen (Basaglar KwikPen U-100 Insulin) metoprolol tartrate 100 mg tablet 100 mg PO BID 02/20/24 02/20/24 Unknown potassium chloride 20 mEq 20 meq PO BID 02/20/24 02/20/24 Unknown tablet,extended release(part/cryst) sertraline 50 mg tablet 50 mg PO BID 02/20/24 02/20/24 Unknown thiamine HCl (vitamin B1) 100 mg 100 mg PO DAILY 02/20/24 02/20/24 Unknown tablet triamterene 75 1 tab PO DAILY 02/20/24 02/20/24 Unknown mg-hydrochlorothiazide 50 mg tablet Active Medications Generic Name Dose Route Start Last Admin Trade Name Freq PRN Reason Stop Dose Admin Acetaminophen 650 mg 02/20/24 10:33 03/03/24 20:10 Acetaminophen 325 Mg Tab PO 03/21/24 10:32 650 mg Q4H PRN Administration Pain or Fever Aspirin 81 mg 02/20/24 15:15 03/03/24 07:57 Aspirin 81 Mg Ectab PO 03/21/24 15:14 81 mg QAM ESTEFANI Administration Heparin Sodium (Beef Lung) 5 ml 02/28/24 15:25 02/29/24 08:02 Heparin 10 Unit/Ml 5 Ml Flush FLUSH 03/29/24 15:24 5 ml PRN PRN Administration Flush Hydroxyzine HCl 25 mg 02/21/24 07:44 02/27/24 14:54 Hydroxyzine Hcl 25 Mg Tab PO 03/22/24 07:43 25 mg Q8H PRN Administration Anxiety Cefazolin Sodium 2,000 mg in 15 mls @ 3.75 mls/min 02/27/24 15:00 03/04/24 06:44 Ancef 2000mg IV 04/09/24 14:59 3.75 mls/min Q8H ESTEFANI Administration Heparin Sodium/Dextrose 25,000 units in 500 mls @ 28 mls/hr 03/01/24 11:15 03/03/24 19:29 Heparin Sodium/Dextrose IV 03/31/24 11:14 1,400 units/hr .[id number] ESTEFANI 28 mls/hr Administration Protocol 1,400 UNITS/HR Insulin Aspart 0 units 02/20/24 11:30 03/03/24 21:15 Insulin Aspart Per Unit Charge SC 03/21/24 11:29 3 units ACHS ESTEFANI Administration Lactobacillus Acidophilus 1,250 mg 02/21/24 15:30 03/03/24 07:57 Advanced Probiotic 625 Mg Capsule PO 03/22/24 15:29 1,250 mg DAILY ESTEFANI Administration Levalbuterol HCl 1.25 mg 02/20/24 10:33 02/26/24 07:34 Levalbuterol 1.25 Mg/3 Ml Neb NEB 03/21/24 10:32 1.25 mg Q4R PRN Administration Shortness Of Breath Or Wheezing Loperamide HCl 2 mg 02/25/24 14:00 03/01/24 21:51 Loperamide Hcl 2 Mg Cap PO 03/24/24 16:35 2 mg Q3H PRN Administration Loose Stool Metoprolol Tartrate 100 mg 02/20/24 10:33 03/03/24 20:10 Metoprolol Tartrate 100 Mg Tab PO 03/21/24 10:32 100 mg BID ESTEFANI Administration Oxycodone HCl 5 mg 02/22/24 12:30 03/03/24 22:36 Oxycodone Hcl Ir 5 Mg Tab (Immediate Release) PO 03/07/24 12:29 5 mg Q4H PRN Administration modeate to severe pain Potassium Chloride 20 meq 02/20/24 10:33 03/03/24 20:09 Potassium Chloride Crtab 20 Meq Tabcr PO 03/21/24 10:32 20 meq BID ESTEFANI Administration Psyllium Hydrophilic Mucilloid 4 gm 02/21/24 15:30 03/03/24 07:57 Psyllium Or Guar Gum Fiber 4gm Packet PO 03/22/24 15:29 4 gm QAM ESTEFANI Administration Rosuvastatin Calcium 10 mg 02/23/24 09:00 03/03/24 07:57 Rosuvastatin Calcium 10 Mg Tab PO 03/24/24 08:59 10 mg QAM ESTEFANI Administration Sertraline HCl 50 mg 02/20/24 10:33 03/03/24 20:10 Sertraline Hcl 50 Mg Tablet PO 03/21/24 10:32 50 mg BID ESTEFANI Administration Thiamine HCl 100 mg 02/20/24 10:33 03/03/24 07:57 Thiamine Hcl 100 Mg Tab PO 03/21/24 10:32 100 mg DAILY ESTEFANI Administration Triamterene/Hydrochlorothiazide 1 tab 02/20/24 10:33 03/03/24 07:57 Triamterene/Hctz 37.5/25mg Tab PO 03/21/24 10:32 1 tab DAILY ESTEFANI Administration Exercise / Class Metabolic Activity Metabolic Activity: III < 4 Walking/Shop/Light housework Physical Exam Constitutional: no acute distress Mouth: + dentition abnormality and + edentulous Thyromental Distance: > or= 3.5 Finger Breadths Mallampati Class: II Neck: + visual inspection normal Respiratory: + respiratory effort normal and + clear to auscultation bilaterally; no respiratory distress Cardiovascular: + regular rate and + regular rhythm; no murmur Musculoskeletal: no limited cervical ROM Psychiatric: + alert and + oriented x 3 ASA ASA4 Proposed Anesthesia Proposed Anesthesia: General Anesthesia Line Insertion: Arterial line Risk / Benefits Reviewed With: PT / POA / Parent / Guardian, Accepts Plan and Informed Consent Obtained Echcardiogram Report Echocardiogram Report EF 60% mild AI
[2024-03-04] MEDS ORDERED: ALBUMIN HUMAN 5% 12.5 GM/250 ML VIAL IV ONE (07:56)
--- NOTE | 2024-03-04 07:56 | History & Physical Bridge Note ---
Date of Service March 04, 2024 History & Physical Bridge Note Patient for a right fem post tib bypass. I have discussed the risks options and benefits of the procedure with the patient. The patient understands the risks options and benefits and agrees to the procedure. I have examined the patient, reviewed the History & Physical and in the interval since the performance of the History & Physical I have noted the following changes of clinical significance: no changes noted
[2024-03-04] MEDS ORDERED: ONDANSETRON INJ 2 MG/ML 2 ML VIAL IV PRN (08:07)
[2024-03-04] MEDS ORDERED: ATROPINE SULFATE 0.1 MG/ML 10ML SYR IV PRN (08:07)
[2024-03-04] MEDS ORDERED: HYDROmorphone INJ 1 MG/ML SYRINGE IV PRN (08:07)
[2024-03-04] MEDS ORDERED: ePHEDrine sulfate 50 MG/ML AMP IV PRN (08:07)
[2024-03-04] MEDS ORDERED: PROMETHAZINE HCL 6.25 MG in SODIUM CHLORIDE 0.9% 50 ML IV PRN (08:07)
[2024-03-04] MEDS ORDERED: ONDANSETRON INJ 2 MG/ML 2 ML VIAL ONE (09:39)
[2024-03-04] MEDS ORDERED: SUGAMMADEX SODIUM 200 MG/2 ML VIAL IV ONE (09:40)
[2024-03-04] MEDS: BUPIVACAINE/EPINEPHRINE 0.5% MPF 1:200,000 30 ML VIAL ONE (09:45)
[2024-03-04] MEDS: LIDOCAINE 1% LOCAL 20 ML VIAL ONE (09:47)
[2024-03-04] MEDS: THROMBIN 5000 UNITS KIT ONE (09:47)
[2024-03-04 10:56] LABS: Hematocrit (blood only) 33.7 % (42.0-52.0); Hemoglobin 11.4 g/dl (14.0-18.0)
[2024-03-04] MEDS ORDERED: PROTAMINE SULFATE 10 MG/ML 5 ML VIAL IV ONE (11:30)
[2024-03-04] MEDS ORDERED: LABETALOL HCL IV 5 MG/ML 20ML IV ONE (11:46)
[2024-03-04] MEDS: HEPARIN (PORCINE) 1000 UNIT/ML 10 ML (CATH LAB USE ONLY) ONE (11:47)
[2024-03-04] MEDS: ceFAZolin 330 MG/ML 1 GM VIAL ONE (11:48)
[2024-03-04] MEDS: PAPAVERINE HCL INJ 30 MG/ML 2 ML VIAL ONE (11:48)
[2024-03-04] MEDS: THROMBIN FOR SOLN 20000 UNIT KIT ONE (11:49)
[2024-03-04] MEDS: GELATIN SPONGE SZ 100 ONE (11:49)
--- NOTE | 2024-03-04 12:00 | Post Operative Brief Note ---
Immediate Post Op Note Date of Surgery March 04, 2024 Pre & Post Diagnosis Operation Date: 03/04/24 08:00 Pre-Op Diagnosis: gangrene, right foot Post-Op Diagnosis: gangrene, right foot I identified the patient and participated in the time-out.: Yes Procedure Operation Date: 03/04/24 08:00 Actual Procedures p Right Femoral to Posterior Tibial Bypass Insitu(Right) - Nate Snow MD Surgeon Nate Snow MD [place] None Estimated Blood Loss 500 Findings Consistent with Post-Op Diagnosis Drains [place] Catheter Anesthesia Type General Complications none Disposition Accompanied Patient To Recovery: No Disposition: Recovery Room
--- NOTE | 2024-03-04 12:01 | Operative Report ---
Post Operative Report Pre & Post Diagnosis Operation Date: 03/04/24 08:00 Pre-Op Diagnosis: gangrene, right foot Post-Op Diagnosis: gangrene, right foot I identified the patient and participated in the time-out.: Yes Procedure Operation Date: 03/04/24 08:00 Actual Procedures p Right Femoral to Posterior Tibial Bypass Insitu(Right) - Nate Snow MD Surgeon Nate Snow MD [employer] None Estimated Blood Loss 500 Findings Consistent with Post-Op Diagnosis Specimens none Anesthesia Type General Complications none Disposition Accompanied Patient To Recovery: No Disposition: Recovery Room Indications This is a 78-year-old gentleman who presented with gangrene of his right great toe. He underwent right transmetatarsal amputation. Gangrene of the right second toe and an area dorsum of his foot. He was found to have a superficial femoral occlusion and reconstitution of the anterior tibial and posterior tibial arteries. Bypass was recommended. I have discussed the risks options and benefits of the procedure with the patient. The patient understands the risks options and benefits and agrees to the procedure. Description of Procedure The patient was taken the operating placed spine position. After general anesthesia was accomplished the right lower extremity was prepped draped in a sterile manner. Patient identified and a timeout was performed. Longitude incision was then made in the right groin. This was carried down to the common femoral arteries identified. By stapling the ligament down to beyond the bifurcation. Saphenous vein side in the groin. It was of good caliber. We then made a longitudinal incision in the medial side of the calf in the midportion. This was carried down through the posterior tibial arteries ident ified. It was of good caliber soft and usable for bypass. The saphenous vein was identified in the incision. It was isolated entirely to the incision. Patient was heparinized at that time. After adequate heparinization was accomplished the common and profundofemoral superficial femoral arteries were clamped. Longitudinal arteriotomy was performed. The common femoral is widely patent. The saphenous vein was then clamped at the saphenofemoral junction and removed from the common femoral vein. The common femoral vein was then closed with a 5-0 Prolene suture. The proximal portion of the saphenous vein was inspected no valves were seen. The vein was then anastomosed to the common femoral artery using a 5-0 Prolene suture in usual vascular fashion. After this was completed the clamps were removed. Excellent flow was seen into the proximal portion of the saphenous vein. We then transected the saphenous vein distally at the lower part of the distal incision. We gently dilated the distal end of the vein. We then passed a valve cutter up the entire length and cut the valves and the saphenous vein. Excellent flow was seen through the saphenous vein at that point. We clamped the posterior tibial artery proximal distally. Longitudinal arteriotomy was performed. The saphenous vein was then beveled and transected the appropriate length. An inside anastomosis was accomplished from the saphenous vein and the posterior tibial artery using 6-0 Prolene suture. Once this was completed the clamps were removed. There was good flow heard on Doppler however there is an area in the vein just proximal to the anastomosis which appeared to be narrow. We decided that point that we attempt to do an angiogram looking for sidebranch of the same time is inspected distal anastomo sis. He has a sidebranch in the proximal portion of the vein a micropuncture needle was inserted and the sheath was inserted into the saphenous vein graft. Arteriography was then performed. This showed lesion very small branches of the saphenous vein which is still patent. There was a narrowing seen of the saphenous vein just proximal to the distal anastomosis and slight narrowing of the posterior tibial that appeared to be a little from the clamp. We then inserted an 035 wire through the sidebranch and changed to a 5 [place] sheath. Inserted a 4 mm balloon dilated this area. Posterior tibial responded nicely however the saphenous vein in the area of narrowing ruptured. The balloon and sheath were removed. The posterior tibial vein graft were then reclamped. The area of rupture was then opened proximal distally. There is fairly focal. We then used the remaining piece of the that we had harvested and did a vein patch angioplasty of the distal portion of the saphenous vein. Upon completion there is excellent flow through the vein graft. There is a palpable posterior tibial artery pulse at the ankle and good Doppler signals. After hemostasis obtained wounds were closed in usual fashion. We used a 2-0 Vicryl suture for the femoral sheath and 3-0 Vicryl for subcutaneous layers. [place] were used for both incisions. Sterile dressings were applied to the wounds.The patient left the operation room in satisfactory condition and tolerated the procedure well. All needle and sponge counts were correct at the end of the procedure. I attest to the content of the Intraoperative Record and any orders documented therein. Any exceptions are noted below.
[2024-03-04 12:42] LABS: Basophils # (auto) 0.05 K/uL (0.00-0.20); Basophils % (auto) 0.5 %; Eosinophils # (auto) 0.21 K/uL (0.00-0.50); Hematocrit (blood only) 31.1 % (42.0-52.0); Hemoglobin 10.4 g/dl (14.0-18.0); Immature Granulocytes # (auto) 0.08 K/uL (0.01-0.20); Immature Granulocytes % (auto) 0.7 %; Lymphocytes # (auto) 1.34 K/uL (1.20-3.40); Lymphocytes % (auto) 12.5 %; Mean Corpuscular Hemoglobin 28.9 pg (25.0-34.0); Mean Corpuscular Hgb Conc 33.4 g/dL (32.0-36.0); Mean Corpuscular Volume 86.4 fL (80.0-100.0); Mean Platelet Volume 8.8 fL (9.4-12.4); Monocytes # (auto) 0.82 K/uL (0.11-0.59); Monocytes % (auto) 7.6 %; Neutrophils # (auto) 8.23 K/uL (1.40-6.50); Neutrophils % (auto) 76.7 %; Platelet Count 218 K/uL (130-400); RDW Coefficient of Variation 13.5 % (11.5-14.5); RDW Standard Deviation 42.6 fL (36.4-46.3); White Blood Count 10.73 K/ul (4.8-10.8)
[2024-03-04 12:56] LABS: Calcium 8.6 mg/dl (8.6-10.3); Creatinine Clr Calc Pharmacy 72.2 ml/min; Potassium 4.4 mmol/L (3.5-5.1)
--- NOTE | 2024-03-04 13:05 | Hospitalist Progress Note ---
Date of Service March 04, 2024 Assessment & Plan (1) Gangrene of right foot: Plan 78-year-old male who recently moved from [place], with PMH of HTN, DM, depression, ongoing tobacco use, heavy alcohol use [no drinking since last 6 months as per patient] who lives alone at home presented to the ED 02/19 with complaint of fall and found to have flu positive. Patient was feeling weak and fatigued. He slid from bed and fell down and he could not get up, he thinks he laid on the floor for 1 to 1 and half days and was finally able to call 911 and was brought in here. 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 hx of diabetic neuropathy with amputation of 5th toe of right foot MRI foot positive for acute osteomyelitis involving second toe proximal phalanx and head/neck of the second metatarsal. Possible septic arthritis involving the second MTP joint. 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 BLE extensive atherosclerotic disease. Podiatry evaled, s/p Right Second Ray Amputation 02/21, weightbearing as tolerated in a surgical shoe, recommended vascular surgery evaluation. Patient underwent left leg angiogram on 03/01 which showed occluded superficial femoral artery at its origin; peroneal is totally occluded. full details in procedure note Patient underwent right femoral to posterior tibial bypass on 03/04 Discussion done with podiatry; plan for possible transmetatarsal amputation in next few days along with debridement of wound on the dorsal aspect. Will continue on cefazolin for the time being given the previous wound culture. PICC line has been placed on 02/26; depending on the cultures from the surgery; antibiotic may need to be adjusted. Generalized weakness Influenza A Patient presented with flulike symptoms, generalized tiredness/fatigue Respiratory viral panel positive for influenza A Chest x-ray does not show infiltrates s/p Tamiflu droplet precautions discontinued on 02/28/2023 PT OT eval Elevated high sensitive troponin of undetermined significance in setting of influenza A high sensitivity elevated with no significant delta difference. Echo with EF. of 60-65%, grade I diastolic dysfunction, Left ventricle wall motion normal. Cardiology evaluated, appreciate recommendation. c/w crestor, OP ischemic w/u. Monitor replete electrolytes. Elevated CPK: resolved. History of hypertension: Continue home metoprolol tartrate and triamterene/hydrochlorothiazide and potassium supplement. Will monitor Depression: On Zoloft Type 2 Diabetes on long-acting insulin 20 units nightly For now will place on insulin sliding scale and monitor a1c 6.4 this admisison needs to establish new PCP Full code dvt prophylaxis : SCDs for today. Updated plan of care with patient's son at bedside. Answer questions/queries. He is in agreement with the plan. Time spent evaluating patient, direct bedside care, chart review, placing orders, interpretation of diagnostic studies, discussion with consultants, nic ent, and family members, as well as other required patient management activities is 50 minutes Please note the above document was generated using voice recognition software. It may contain grammatical, syntax or spelling errors. Any formal questions or concerns about the content, text or information contained within the body of this dictation should be directly addressed to the provider for clarification Admission and Anticipated Discharge Date Admission Date: February 20, 2024 Subjective Patient seen after the OR. Reports some mild right sided paraspinal pain in lower back Vital signs are stable and he is saturating well on room air Review of Systems Review of Systems: All systems reviewed & are unremarkable except as noted in Subjective Physical Exam Physical Exam: Constitutional: Alert oriented x 3; not in distress. RA Respiratory: Bilateral vesicular breath sound, CTA Cardiovascular: RRR, no murmur, no edema Vessels: no JVD or carotid bruit Abdomen: normal bowel sounds, soft, nontender, no hepatosplenomegaly Musculoskeletal: Rt forefoot amputation site c/d/i. There is blackish discoloration of second toe along with discoloration along the aspect of the dorsum of the foot. Patient denies any pain/discomfort. Neurologic: PERRL, EOMI, accommodation nl, no face palsy, no dysarthria CN's II- XI intact bilaterally and moves all extremities Psychiatric: A+Ox3, euthymic affect Results & Data Results & Data Vital Signs (Past 12 Hours) Vital Signs Temp Pulse Pulse Pulse Resp BP BP 03/04/24 12:50 36.9 C 95 H 19 109/73 107/73 03/04/24 12:40 93 H 18 122/76 109/55 L 03/04/24 12:30 88 21 114/69 102/51 L 03/04/24 12:20 86 18 124/73 89/52 L 03/04/24 12:14 36.3 C L 87 19 119/69 102/51 L 03/04/24 07:24 37.2 C 65 20 161/83 H 03/04/24 07:05 60 03/04/24 04:00 36.5 C 66 18 150/84 H Pulse Ox O2 Del Method O2 Flow Rate 03/04/24 12:50 96 Room Air 03/04/24 12:40 96 Oxymask 2 03/04/24 12:30 99 Oxymask 4 03/04/24 12:20 99 Oxymask 6 03/04/24 12:14 99 Oxymask 6 03/04/24 07:24 93 Room Air 03/04/24 07:05 03/04/24 04:00 97 Room Air
[2024-03-04 13:14] LABS: ANTI-Xa, UFH(UnfractionatedHep < 0.10 IU/ml (0.3-0.7)
--- NOTE | 2024-03-04 14:13 | Anesthesiology Progress Note ---
Date of Service March 04, 2024 Anesthesia Post Procedure Vital Signs Vital Signs: Temp Pulse Pulse Pulse Resp BP BP 03/04/24 13:00 94 H 21 101/68 95/53 L 03/04/24 12:50 36.9 C 95 H 19 109/73 107/73 03/04/24 12:40 93 H 18 122/76 109/55 L 03/04/24 12:30 88 21 114/69 102/51 L 03/04/24 12:20 86 18 124/73 89/52 L 03/04/24 12:14 36.3 C L 87 19 119/69 102/51 L 03/04/24 07:24 37.2 C 65 20 161/83 H 03/04/24 07:05 60 03/04/24 04:00 36.5 C 66 18 150/84 H 03/03/24 22:30 36.6 C 70 18 145/80 H 03/03/24 21:45 70 03/03/24 19:17 03/03/24 19:00 37.0 C 82 18 159/90 H 03/03/24 16:42 36.2 C L 86 18 147/80 H Pulse Ox O2 Del Method O2 Flow Rate 03/04/24 13:00 94 Room Air 03/04/24 12:50 96 Room Air 03/04/24 12:40 96 Oxymask 2 03/04/24 12:30 99 Oxymask 4 03/04/24 12:20 99 Oxymask 6 03/04/24 12:14 99 Oxymask 6 03/04/24 07:24 93 Room Air 03/04/24 07:05 03/04/24 04:00 97 Room Air 03/03/24 22:30 93 Room Air 03/03/24 21:45 03/03/24 19:17 Room Air 03/03/24 19:00 94 Room Air 03/03/24 16:42 92 Room Air Pain Intensity Right Foot: Pain Intensity: 3 Transfer of Care Handoff Completed per policy Notes Mental Status: alert / awake / arousable and participated in evaluation Nausea / Vomiting: adequately controlled Pain: adequately controlled Airway Patency, RR, SpO2: stable & adequate BP & HR: stable & adequate Hydration State: stable & adequate Anesthetic Complications: no major complications apparent and Pt Satisfied with anesthetic care
[2024-03-04] MEDS: MoRPHine SULFATE 4 MG/ML 1 ML CARP\\VIAL IV PRN (14:25)
[2024-03-04] MEDS: SODIUM CHLORIDE 0.9% 1,000 ML IV SCH (15:09)
--- NOTE | 2024-03-04 15:10 | Electrocardiogram Report ---
Test Reason : Blood Pressure : */* mmHG Vent. Rate : 93 BPM Atrial Rate : 93 BPM P-R Int : 138 ms QRS Dur : 102 ms QT Int : 358 ms P-R-T Axes : 48 62 255 degrees QTcB Int : 445 ms Normal sinus rhythm Abnormal ECG Confirmed by Ortega Carver ([id number]) on 03/04/2024 3:10:46 PM Referred By: REFERRED SELF Confirmed By: Ortega Carver
--- NOTE | 2024-03-04 15:27 | Podiatry Progress Note ---
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 -Foot was cleaned and redressed with a dry sterile dressing and Aquacel to the surgical site -He is scheduled for bypass on Monday with Dr. Snow which should help establish further prognosis -With the level of gangrene that was noted preoperatively, his prognosis is extremely guarded/poor. He may require a below the knee amputation or more proximal amputation if the foot becomes nonsalvageable. 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 -Will continue to follow every day or so and redress as needed. Admission and Anticipated Discharge Date Admission Date: February 20, 2024 Subjective patient seen at bedside on Monday. This is a late entry for that postoperative visit. Denies any new concerns. Had his vascular intervention successfully yesterday and is scheduled for a bypass on day. Denies any drastic increase in pain since the procedure. He states he is concerned about the foot overall but is unsure if you would like aggressive treatment or surgical intervention for this currently. Review of Systems Constitutional: no fever, no chills and no fatigue Eyes: no problem reported Ear, Nose, Mouth, Throat: no problem reported Respiratory: no problem reported Cardiovascular: + edema; no problem reported Gastrointestinal: no nausea, no vomiting and no problem reported Musculoskeletal: no problem reported Integumentary: + skin ulcer, + wounds and + erythema Neurologic: + loss of sensation, + numbness and + pa resthesia; no generalized weakness Psychiatric: no problem reported Physical Exam Physical Exam: Lower extremity focused exam: DP/PT pulses nonpalpable. CFT is absent to the third toe but still present, with increasing dusky appearance to fourth toe and medial forefoot overall. Proximally, there is a large circumscribed area of rubor/ischemia to the dorsal rearfoot/midfoot. A dry eschar measures 4x6cm and likely represents upstaging or worsening necrosis, as well. No purulent drainage and no active bleeding noted. Sutures are intact to the surgical site with the packing having been removed on Monday. Still, no purulence is appreciated to the surgical site. No ascending cellulitis noted. Constitutional: WD/WN, vitals as above + ill appearing and + thin Eyes: PERRL, conjunctivae normal, anicteric sclerae ENMT: external ear and nose normal, oropharynx normal Mouth: + poor dentition Neck: trachea midline, no thyromegaly Respiratory: normal respiratory effort and + respiratory distress Cardiovascular: RRR, no murmur, no edema Vessels: + posterior tibial pulses abnormal and + dorsalis pedis pulses abnormal Extremities: normal capillary refill (With the exception of the right second toe which is gangrenous, absent PROCTOLOGIST) Chest (Breasts): normal inspection/palpation of breasts Gastrointestinal (Abdomen): Inspection/Auscultation: abdomen normal to inspection; abdomen not distended Percussion/Palpation: no guarding Musculoskeletal: Head/Neck/Chest: normocephalic and head atraumatic Extremities: + limited ROM of extremities, + muscle atrophy and + foot abnormality Skin: + ulcer, + skin tightening, + skin atrop hy, + erythema and + eschar Neurologic: plantar reflexes intact bilaterally and moves all extremities; + abnormal sensation to monofilament Psychiatric: A+Ox3, euthymic affect Results & Data Results & Data Vital Signs (Past 12 Hours) Vital Signs Temp Pulse Pulse Pulse Resp BP BP 03/04/24 13:00 94 H 21 101/68 95/53 L 03/04/24 12:50 36.9 C 95 H 19 109/73 107/73 03/04/24 12:40 93 H 18 122/76 109/55 L 03/04/24 12:30 88 21 114/69 102/51 L 03/04/24 12:20 86 18 124/73 89/52 L 03/04/24 12:14 36.3 C L 87 19 119/69 102/51 L 03/04/24 07:24 37.2 C 65 20 161/83 H 03/04/24 07:05 60 03/04/24 04:00 36.5 C 66 18 150/84 H Pulse Ox O2 Del Method O2 Flow Rate 03/04/24 13:00 94 Room Air 03/04/24 12:50 96 Room Air 03/04/24 12:40 96 Oxymask 2 03/04/24 12:30 99 Oxymask 4 03/04/24 12:20 99 Oxymask 6 03/04/24 12:14 99 Oxymask 6 03/04/24 07:24 93 Room Air 03/04/24 07:05 03/04/24 04:00 97 Room Air (1) 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 mellitus manager intermediate insulin use: with manager intermediate use Qualified Code(s): E11.42 - Type 2 diabetes mellitus with diabetic polyneuropathy; Z79.4 - skilled nursing (current) use of insulin (2) 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
--- NOTE | 2024-03-04 15:27 | Critical Care Consultation ---
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 Allergies Allergy/AdvReac Type Severity Reaction Status Date / Time No Known Allergies Allergy Unverified 02/22/24 08:22 Home Medications Medication Instructions Recorded Confirmed Type insulin glargine 100 unit/mL (3 20 unit subcut UD 02/20/24 02/20/24 History mL) subcutaneous pen (Basaglar KwikPen U-100 Insulin) metoprolol tartrate 100 mg tablet 100 mg PO BID 02/20/24 02/20/24 History potassium chloride 20 mEq 20 meq PO BID 02/20/24 02/20/24 History tablet,extended release(part/cryst) sertraline 50 mg tablet 50 mg PO BID 02/20/24 02/20/24 History thiamine HCl (vitamin B1) 100 mg 100 mg PO DAILY 02/20/24 02/20/24 History tablet triamterene 75 1 tab PO DAILY 02/20/24 02/20/24 History mg-hydrochlorothiazide 50 mg tablet Patient History Social History Smoking Status: Current every day smoker Tobacco Type: Cigarettes Do You Dip or Chew Tobacco: No; Tobacco Cessation Education Requested by Patient: No Hx Alcohol Use: No Hx Substance Use: No Preferred Language: Burmese Communication Ability: Effective Manufacturing Engineering Intern Required: No Beliefs That Will Affect Care: None Current Living Situation: Alone Other Information That Helps Us Care for You: No Feels Safe at Home: Yes Safety Concerns: Feels Safe At This Time Assistive Devices: Cane Physical Exam Physical Exam: General: Alert. nontoxic. Skin: Warm, dry, Head: Atraumatic Ears, nose, mouth and throat: airway patent Cardiovascular: Normal peripheral perfusion Respiratory: no respiratory distress Gastrointestinal: Non distended Musculoskeletal: Bandages present on right lower extremity, warm with normal capillary refill Results & Data Results & Data Vital Signs (Past 12 Hours) Vital Signs Temp Pulse Pulse Pulse Resp BP BP 03/04/24 13:00 94 H 21 101/68 95/53 L 03/04/24 12:50 36.9 C 95 H 19 109/73 107/73 03/04/24 12:40 93 H 18 122/76 109/55 L 03/04/24 12:30 88 21 114/69 102/51 L 03/04/24 12:20 86 18 124/73 89/52 L 03/04/24 12:14 36.3 C L 87 19 119/69 102/51 L 03/04/24 07:24 37.2 C 65 20 161/83 H 03/04/24 07:05 60 03/04/24 04:00 36.5 C 66 18 150/84 H Pulse Ox O2 Del Method O2 Flow Rate 03/04/24 13:00 94 Room Air 03/04/24 12:50 96 Room Air 03/04/24 12:40 96 Oxymask 2 03/04/24 12:30 99 Oxymask 4 03/04/24 12:20 99 Oxymask 6 03/04/24 12:14 99 Oxymask 6 03/04/24 07:24 93 Room Air 03/04/24 07:05 03/04/24 04:00 97 Room Air Critical Care Results & Data Vital Signs (Past 12 Hours) Vital Signs Temp Pulse Pulse Pulse Resp BP BP 03/04/24 13:00 94 H 21 101/68 95/53 L 03/04/24 12:50 36.9 C 95 H 19 109/73 107/73 03/04/24 12:40 93 H 18 122/76 109/55 L 03/04/24 12:30 88 21 114/69 102/51 L 03/04/24 12:20 86 18 124/73 89/52 L 03/04/24 12:14 36.3 C L 87 19 119/69 102/51 L 03/04/24 07:24 37.2 C 65 20 161/83 H 03/04/24 07:05 60 03/04/24 04:00 36.5 C 66 18 150/84 H Pulse Ox O2 Del Method O2 Flow Rate 03/04/24 13:00 94 Room Air 03/04/24 12:50 96 Room Air 03/04/24 12:40 96 Oxymask 2 03/04/24 12:30 99 Oxymask 4 03/04/24 12:20 99 Oxymask 6 03/04/24 12:14 99 Oxymask 6 03/04/24 07:24 93 Room Air 03/04/24 07:05 03/04/24 04:00 97 Room Air Lab & Micro Results (Past 24 Hours) RBC 3.60 M/uL (4.70-6.10) L 03/04/24 WBC 10.73 K/ul (4.8-10.8) 03/04/24 Hgb 10.4 g/dl (14.0-18.0) L 03/04/24 Hct 31.1 % (42.0-52.0) L 03/04/24 MCV 86.4 fL (80.0-100.0) 03/04/24 MCH 28.9 pg (25.0-34.0) 03/04/24 MCHC 33.4 g/dL (32.0-36.0) 03/04/24 RDW Standard Deviation 42.6 fL (36.4-46.3) 03/04/24 RDW Coefficient of Variation 13.5 % (11.5-14.5) 03/04/24 Plt Count 218 K/uL (130-400) 03/04/24 MPV 8.8 fL (9.4-12.4) L 03/04/24 Neutrophils (%) (Auto) 76.7 % 03/04/24 Lymphocytes (%) (Auto) 12.5 % 03/04/24 Monocytes # (Auto) 0.82 K/uL (0.11-0.59) H 03/04/24 Eosinophils # (Auto) 0.21 K/uL (0.00-0.50) 03/04/24 Immature Granulocyte % (Auto) 0.7 % 03/04/24 Neutrophils # (Auto) 8.23 K/uL (1.40-6.50) H 03/04/24 Lymphocytes # (Auto) 1.34 K/uL (1.20-3.40) 03/04/24 Monocytes # (Auto) 0.82 K/uL (0.11-0.59) H 03/04/24 Eosinophils # (Auto) 0.21 K/uL (0.00-0.50) 03/04/24 Basophils # (Auto) 0.05 K/uL (0.00-0.20) 03/04/24 Immature Granulocyte # (Auto) 0.08 K/uL (0.01-0.20) 5 Na 136 mmol/L (136-145) 03/04/24 K 4.4 mmol/L (3.5-5.1) 03/04/24 Cl 107 mmol/L (98-107) 03/04/24 CO2 22 mmol/L (21-32) 03/04/24 Anion Gap 7 (3-11) 03/04/24 BUN 24 mg/dl (6-23) H 03/04/24 Creatinine 0.80 mg/dl (0.6-1.4) 03/04/24 BUN/Creatinine Ratio 30.0 (10-20) H 03/04/24 Glu 166 mg/dl (70-99(Fasting)) H 03/04/24 Ca 8.6 mg/dl (8.6-10.3) 03/04/24 Calcium Level 8.6 mg/dl (8.6-10.3) 03/04/24 12:24 I & O Totals 24 Hours 03/03/24 03/04/24 03/05/24 06:59 06:59 06:59 Intake Total 3172.650 / 3172.650 578.533 / 056.447 5601 / 1400 Output Total 652 / 652 952 / 952 975 / 975 Balance 2520.650 / 2520.650 -373.467 / -373.467 425 / 425 Cumulative 02/20/24 01:39 thru 03/04/24 13:02 Intake Total 55090.299 Output Total 24180 Balance 54924.299 RT Ventilator Mngmt (Last Documented) Ventilator Ordered Settings Respiratory Rate 21 03/04/24 13:00 Ventilator - PT Measurements Respiratory Rate 21 Coding Level of Care Code 39000 IN/OBS CONSULT LVL 2,35M Diagnoses 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
[2024-03-05 05:16] LABS: BUN Creatinine Ratio 33.3 (10-20); Calcium 8.3 mg/dl (8.6-10.3); Creatinine Clr Calc Pharmacy 83.7 ml/min; Potassium 4.2 mmol/L (3.5-5.1)
[2024-03-05 05:33] LABS: Basophils # (auto) 0.07 K/uL (0.00-0.20); Basophils % (auto) 0.6 %; Eosinophils # (auto) 0.17 K/uL (0.00-0.50); Eosinophils % (auto) 1.6 %; Hematocrit (blood only) 25.4 % (42.0-52.0); Hemoglobin 8.4 g/dl (14.0-18.0); Immature Granulocytes # (auto) 0.07 K/uL (0.01-0.20); Immature Granulocytes % (auto) 0.6 %; Lymphocytes # (auto) 1.42 K/uL (1.20-3.40); Lymphocytes % (auto) 13.1 %; Mean Corpuscular Hemoglobin 28.8 pg (25.0-34.0); Mean Corpuscular Hgb Conc 33.1 g/dL (32.0-36.0); Mean Platelet Volume 9.8 fL (9.4-12.4); Monocytes # (auto) 0.97 K/uL (0.11-0.59); Monocytes % (auto) 8.9 %; Neutrophils # (auto) 8.18 K/uL (1.40-6.50); Neutrophils % (auto) 75.2 %; Platelet Count 228 K/uL (130-400); RDW Coefficient of Variation 13.6 % (11.5-14.5); RDW Standard Deviation 42.6 fL (36.4-46.3); Red Blood Count 2.92 M/uL (4.70-6.10); White Blood Count 10.88 K/ul (4.8-10.8)
--- NOTE | 2024-03-05 07:00 | Critical Care Progress Note ---
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 tibial bypass following R transmetatarsal amputation following R great toe gangrene, ICU for possible need for mechanical ventilation Neuro - good sensation of touch and pain in RLE, extremity of vascular surgery and amputation Cardiac - may resume home triamterene-HCTZ Respiratory - 97% on RA GI - continue solid meals, tolerated breakfast well RENAL/LYTES - stable, creatinine WNL but BUN:Cr ratio >1:20, encourage PO hydration - catheter in place, 150cc yellow-star urine in nino bag ENDO -glucose 191 today, insulin sliding scale HEME - stable, on subQ heparin for VTE proplylaxis ID - WBCs mildly elevated; continue cefazolin for now, watch for signs of infection of distal RLE LINES/IV ACCESS - arterial line out today DVT PROPHYLAXIS - subQ heparin DISPO: ICU -> med/tele Admission and Anticipated Discharge Date Admission Date: February 20, 2024 Supervising Physician Co-Signing Physician Notes Dr. Granados was resident physician during care of patient. I separately evaluated patient for mejía portions of the history and the exam. I was present during the critical portion of medical decision making, and I discussed the case with the resident. I generally agree with the findings and plan. Lower extremity well-perfused, critical care will sign off. Subjective Patient was seen and evaluated at bedside this AM, not appearing in acute distress. States he is feeling uncomfortable because of the hospital bed. Notes he is having some mid back pain and generalized pain in his RLE which seems to "move around", currently mainly on his inner thigh, inner calf, and bases of R toes 3-5 States he was able to eat solid breakfast successfully without nausea or vomiting. Understands that the plan is to be downgraded to the regular tele floor. Physical Exam Physical Exam: General: A&Ox3, appears stated age, not in acute distres Head: NC/AT Ears, nose, mouth and throat: airway patent, EOM intact, anicteric sclerae, PERRL b/l Cardiovascular: RRR, no murmurs/rubs/gallops heard on auscultation, 2+ radial pulses b/l, 2+ posterior tibial pulses b/l Respiratory: clear to auscultation b/l, no wheezes/rales/rhonchi, in no respiratory distress Gastrointestinal: Non distended, hysperactive BS, abdomen soft, nontender to palpation Musculoskeletal: RLE: palpable thrill to R femoral artery, tenderness to palpation of medial thigh and medial calf where bandage with padding is present - RLE: area of amputation seen- digits 1 -2 including distal metatarsals; 3rd di git necrotic to distal metatarsal, digits 4-5 non-necrotic; mild erythema and tenderness to palpation of distal metatarsal in areas of non-necrotic skin - Bandages present on right lower extrem ity, warm with normal capillary refill Skin: Aside from the above, warm and dry. Neuro: no facial droop, speech intact, good sensation LLE, nontender to palpation - RLE: tenderness to palpation of distal metatarsals digits 3-5, sensation intact in digits 4-5 Results & Data Results & Data Vital Signs (Past 12 Hours) Vital Signs Pulse Resp BP Pulse Ox Pulse Ox O2 Del Method O2 Del Method 03/05/24 05:36 68 23 98 Room Air 03/05/24 05:00 139/61 03/05/24 04:09 73 26 H 97 Room Air 03/05/24 04:00 66 22 114/52 L 98 Room Air 03/05/24 04:00 66 117/64 03/05/24 03:42 66 22 98 Room Air 03/05/24 03:39 64 20 100 Room Air 03/05/24 03:00 62 21 130/55 L 95 Room Air 03/05/24 02:45 61 20 95 Room Air 03/05/24 02:03 61 20 97 Room Air 03/05/24 02:00 134/69 03/05/24 01:30 60 21 97 Room Air 03/05/24 01:00 62 21 121/60 98 Room Air 03/05/24 00:32 62 03/05/24 00:00 62 18 132/61 96 Room Air 03/05/24 00:00 64 138/56 L 03/04/24 23:59 94 Room Air 03/04/24 23:51 62 21 96 Room Air 03/04/24 23:00 58 L 24 126/64 96 Room Air 03/04/24 22:30 60 23 100 Room Air 03/04/24 22:00 67 19 91 Room Air 03/04/24 21:39 67 20 96 Room Air 03/04/24 21:00 21 131/67 99 Room Air 03/04/24 20:57 66 21 99 Room Air 03/04/24 20:00 62 16 120/67 97 Room Air 03/04/24 20:00 Room Air 03/04/24 20:00 66 132/54 L 03/04/24 19:39 67 19 96 Room Air 03/04/24 19:00 66 03/04/24 19:00 66 20 123/65 100 Room Air Resident Activity Tracking Resident Involvement: Resident Care Provided Care Provided: Adult Hospital Medicine (1) 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 mellitus retirement insulin use: with retirement use Qualified Code(s): E11.42 - Type 2 diabetes mellitus with diabetic polyneuropathy; Z79.4 - adjunct faculty for medical terminology (current) use of insulin (2) Diabetes mellitus with peripheral angiopathy with gangrene Diabetes mellitus termite control technician insulin use: with termite control technician use Diabetes mellitus type: type 2 Qualified Code(s): E11.52 - Type 2 diabetes mellitus with diabetic peripheral angiopathy with gangrene; Z79.4 - adjunct faculty for medical terminology (current) use of insulin
--- NOTE | 2024-03-05 08:32 | Hospitalist Progress Note ---
Date of Service March 05, 2024 Assessment & Plan (1) Gangrene of right foot: Plan 78-year-old male who recently moved from [place], with PMH of HTN, DM, depression, ongoing tobacco use, heavy alcohol use [no drinking since last 6 months as per patient] who lives alone at home presented to the ED 02/19 with complaint of fall and found to have flu positive. Patient was feeling weak and fatigued. He slid from bed and fell down and he could not get up, he thinks he laid on the floor for 1 to 1 and half days and was finally able to call 911 and was brought in here. 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 hx of diabetic neuropathy with amputation of 5th toe of right foot MRI foot positive for acute osteomyelitis involving second toe proximal phalanx and head/neck of the second metatarsal. Possible septic arthritis involving the second MTP joint. 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 BLE extensive atherosclerotic disease. Podiatry evaled, s/p Right Second Ray Amputation 02/21, weightbearing as tolerated in a surgical shoe, recommended vascular surgery evaluation. Patient underwent left leg angiogram on 03/01 which showed occluded superficial femoral artery at its origin; peroneal is totally occluded. full details in procedure note Patient underwent right femoral to posterior tibial bypass on 03/04 Patient was observed in ICU overnight on 03/04; transferred out on 03/05. Discussion done with podiatry; plan for possible transmetatarsal amputation in next few days along with debridement of wound on the dorsal aspect. Will continue on cefazolin for the time being given the previous wound culture. PICC line has been placed on 02/26; depending on the cultures from the surgery; antibiotic may need to be adjusted. Hb on 03/05/2024 is 8.4g/dl; down from 11 pre-op; EBL- 500cc, monitor. Transfuse if less than 7. Remove nino Pt/OT Generalized weakness Influenza A Patient presented with flulike symptoms, generalized tiredness/fatigue Respiratory viral panel positive for influenza A Chest x-ray does not show infiltrates s/p Tamiflu droplet precautions discontinued on 02/28/2023 PT OT eval Elevated high sensitive troponin of undetermined significance in setting of influenza A high sensitivity elevated with no significant delta difference. Echo with EF. of 60-65%, grade I diastolic dysfunction, Left ventricle wall motion normal. Cardiology evaluated, appreciate recommendation. c/w crestor, OP ischemic w/u. Monitor replete electrolytes. Elevated CPK: resolved. History of hypertension: Continue home metoprolol tartrate and triamterene/hydrochlorothiazide and potassium supplement. Will monitor Depression: On Zoloft Type 2 Diabetes on long-acting insulin 20 units nightly For now will place on insulin sliding scale and monitor a1c 6.4 this admisison needs to establish new PCP Full code dvt prophylaxis : heparin sc started; discussed with vascular. Updated plan of care with patient's son at bedside on 03/04/2024. Answer questions/queries. He is in agreement with the plan.Called patient's son on 03/05/2024; unable to get a hold of him. Time spent evaluating patient, direct bedside care, chart review, placing orders, interpretation of diagnostic studies, discussion with consultants, nic ent, and family members, as well as other required patient management activities is 50 minutes Please note the above document was generated using voice recognition software. It may contain grammatical, syntax or spelling errors. Any formal questions or concerns about the content, text or information contained within the body of this dictation should be directly addressed to the provider for clarification Admission and Anticipated Discharge Date Admission Date: February 20, 2024 Subjective Patient seen and examined at bedside. He was sitting up on the chair at the side of the bed; reports some pain in his toes. Denies fever, chills, chest pain, shortness of breath, abdominal pain or urinary symptoms. No significant overnight event Review of Systems Review of Systems: All systems reviewed & are unremarkable except as noted in Subjective Physical Exam Physical Exam: Constitutional: Alert oriented x 3; not in distress. RA Respiratory: Bilateral vesicular breath sound, CTA Cardiovascular: RRR, no murmur, no edema Vessels: no JVD or carotid bruit Abdomen: normal bowel sounds, soft, nontender, no hepatosplenomegaly Musculoskeletal: Rt forefoot amputation site c/d/i. There is blackish discoloration of second toe along with discoloration along the aspect of the dorsum of the foot.Dressing intact at bypass site; no overlying soakage. Neurologic: PERRL, EOMI, accommodation nl, no face palsy, no dysarthria CN's II- XI intact bilaterally and moves all extremities Psychiatric: A+Ox3, euthymic affect Results & Data Results & Data Vital Signs (Past 12 Hours) Vital Signs Pulse Resp BP Pulse Ox Pulse Ox O2 Del Method O2 Del Method 03/05/24 05:36 68 23 98 Room Air 03/05/24 05:00 139/61 03/05/24 04:09 73 26 H 97 Room Air 03/05/24 04:00 66 22 114/52 L 98 Room Air 03/05/24 04:00 66 117/64 03/05/24 03:42 66 22 98 Room Air 03/05/24 03:39 64 20 100 Room Air 03/05/24 03:00 62 21 130/55 L 95 Room Air 03/05/24 02:45 61 20 95 Room Air 03/05/24 02:03 61 20 97 Room Air 03/05/24 02:00 134/69 03/05/24 01:30 60 21 97 Room Air 03/05/24 01:00 62 21 121/60 98 Room Air 03/05/24 00:32 62 03/05/24 00:00 62 18 132/61 96 Room Air 03/05/24 00:00 64 138/56 L 03/04/24 23:59 94 Room Air 03/04/24 23:51 62 21 96 Room Air 03/04/24 23:00 58 L 24 126/64 96 Room Air 03/04/24 22:30 60 23 100 Room Air 03/04/24 22:00 67 19 91 Room Air 03/04/24 21:39 67 20 96 Room Air 03/04/24 21:00 21 131/67 99 Room Air 03/04/24 20:57 66 21 99 Room Air
--- NOTE | 2024-03-05 10:13 | Billing Data ---
Date of Service March 05, 2024 Coding Level of Care Code 79707 INT INP/OBS CARE
--- NOTE | 2024-03-05 10:39 | Surgery Progress Note ---
Date of Service March 05, 2024 Assessment & Plan (1) S/P vascular surgery: Plan: This patient is day 1 extremity. He is doing well. He will be transferred to the floor and begin PT/OT Admission and Anticipated Discharge Date Admission Date: February 20, 2024 Subjective This patient is a postoperative day 1 from a right femoral to post tib in situ bypass. His only complaint is pain in the toes of the right foot. Physical Exam Constitutional: WD/WN, vitals as above Respiratory: normal respiratory effort; no respiratory distress Cardiovascular: RRR, no murmur, no edema Vessels: femoral pulses present and posterior tibial pulses present (he has a good right post tib doppler pulse on the right foot) There is a palpable pulse in the graft at the knee Skin: + incision (dressings are intact) Neurologic: CN's II-XI intact bilaterally and moves all extremities Psychiatric: A+Ox3, euthymic affect Results & Data Vital Signs (Past 12 Hours) Vital Signs Temp Pulse Resp BP Pulse Ox Pulse Ox O2 Del Method 03/05/24 10:09 70 17 98 Room Air 03/05/24 09:09 71 22 100 03/05/24 09:00 128/63 03/05/24 08:49 80 03/05/24 08:42 71 20 98 03/05/24 08:00 36.7 C 03/05/24 08:00 70 03/05/24 07:15 67 19 97 Room Air 03/05/24 06:51 69 23 98 03/05/24 05:36 68 23 98 Room Air 03/05/24 05:00 139/61 03/05/24 04:09 73 26 H 97 Room Air 03/05/24 04:00 66 22 114/52 L 98 Room Air 03/05/24 04:00 66 117/64 03/05/24 03:42 66 22 98 Room Air 03/05/24 03:39 64 20 100 Room Air 03/05/24 03:00 62 21 130/55 L 95 Room Air 03/05/24 02:45 61 20 95 Room Air 03/05/24 02:03 61 20 97 Room Air 03/05/24 02:00 134/69 03/05/24 01:30 60 21 97 Room Air 03/05/24 01:00 62 21 121/60 98 Room Air 03/05/24 00:32 62 03/05/24 00:00 62 18 132/61 96 Room Air 03/05/24 00:00 64 138/56 L 03/04/24 23:59 94 03/04/24 23:51 62 21 96 Room Air 03/04/24 23:00 58 L 24 126/64 96 Room Air O2 Del Method 03/05/24 10:09 03/05/24 09:09 03/05/24 09:00 03/05/24 08:49 03/05/24 08:42 03/05/24 08:00 03/05/24 08:00 03/05/24 07:15 03/05/24 06:51 03/05/24 05:36 03/05/24 05:00 03/05/24 04:09 03/05/24 04:00 03/05/24 04:00 03/05/24 03:42 03/05/24 03:39 03/05/24 03:00 03/05/24 02:45 03/05/24 02:03 03/05/24 02:00 03/05/24 01:30 03/05/24 01:00 03/05/24 00:32 03/05/24 00:00 03/05/24 00:00 03/04/24 23:59 Room Air 03/04/24 23:51 03/04/24 23:00
[2024-03-05] MEDS: HEPARIN SOD 5,000 UNIT/0.5 ML VIAL SQ SCH (13:54)
--- NOTE | 2024-03-05 22:15 | Podiatry Progress Note ---
Date of Service March 05, 2024 Assessment & Plan (1) Type 2 diabetes mellitus with diabetic polyneuropathy: (2) Diabetes mellitus with peripheral angiopathy with gangrene: (3) Cellulitis of right leg: (4) Gangrene of right foot: (5) Acute osteomyelitis of right foot: Plan - Patient examined and evaluated Status post right second toe amputation. - Plan for TMA on . Prognosis remains guarded, given more proximal areas of suspected necrosis. - With bypass, may be able to heal the TMA and ulceration. -Will continue to follow every day or so and redress as needed. Admission and Anticipated Discharge Date Admission Date: February 20, 2024 Review of Systems Constitutional: no fever, no chills and no fatigue Eyes: no problem reported Ear, Nose, Mouth, Throat: no problem reported Respiratory: no problem reported Cardiovascular: + edema; no problem reported Gastrointestinal: no nausea, no vomiting and no problem reported Musculoskeletal: no problem reported Integumentary: + skin ulcer, + wounds and + erythema Neurologic: + loss of sensation, + numbness and + pa resthesia; no generalized weakness Psychiatric: no problem reported Physical Exam Physical Exam: Lower extremity focused exam: DP/PT pulses nonpalpable. CFT is absent to the third toe but still present, with increasing dusky appearance to fourth toe and medial forefoot overall. Proximally, there is a large circumscribed area of rubor/ischemia to the dorsal rearfoot/midfoot. A dry eschar measures 4x6cm and likely represents upstaging or worsening necrosis, as well. No purulent sonu inage and no active bleeding noted. Sutures are intact to the surgical site with the packing having been removed on Monday. Still, no purulence is appreciated to the surgical site. No ascending cellulitis noted. 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) Chest (Breasts): normal inspection/palpation of breasts Gastrointestinal (Abdomen): Inspection/Auscultation: abdomen normal to inspection; abdomen not distended Percussion/Palpation: no guarding Musculoskeletal: Head/Neck/Chest: normocephalic and head atraumatic Extremities: + limited ROM of extremities, + muscle atrophy and + foot abnormality Skin: + ulcer, + skin tightening, + skin atrop hy, + erythema and + eschar Neurologic: plantar reflexes intact bilaterally and moves all extremities; + abnormal sensation to monofilament Psychiatric: A+Ox3, euthymic affect Results & Data Results & Data Vital Signs (Past 12 Hours) Vital Signs Temp Pulse Pulse Resp BP BP BP 03/05/24 19:20 36.5 C 74 18 124/64 03/05/24 18:47 37 C 75 20 129/72 03/05/24 17:00 123/67 03/05/24 16:42 75 17 03/05/24 16:06 65 20 03/05/24 16:00 138/64 03/05/24 16:00 138/64 03/05/24 16:00 138/64 03/05/24 16:00 37 C 03/05/24 15:39 67 17 03/05/24 15:00 143/90 H 03/05/24 15:00 143/90 H 03/05/24 15:00 64 19 03/05/24 14:12 68 23 03/05/24 14:00 137/65 03/05/24 13:57 65 19 03/05/24 13:00 98/80 L 03/05/24 13:00 03/05/24 12:39 65 20 03/05/24 12:04 36.6 C 03/05/24 12:03 65 17 03/05/24 12:00 121/61 03/05/24 11:54 65 20 03/05/24 11:12 66 22 Pulse Ox Pulse Ox O2 Del Method O2 Del Method 03/05/24 19:20 03/05/24 18:47 99 Room Air 03/05/24 17:00 03/05/24 16:42 03/05/24 16:06 03/05/24 16:00 03/05/24 16:00 03/05/24 16:00 03/05/24 16:00 03/05/24 15:39 95 Room Air 01/21/25 15:00 03/05/24 15:00 03/05/24 15:00 03/05/24 14:12 03/05/24 14:00 03/05/24 13:57 03/05/24 13:00 03/05/24 13:00 94 Room Air 03/05/24 12:39 03/05/24 12:04 03/05/24 12:03 58 L 03/05/24 12:00 03/05/24 11:54 03/05/24 11:12 (1) 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 mellitus residential insulin use: with drier attendant use Qualified Code(s): E11.42 - Type 2 diabetes mellitus with diabetic polyneuropathy; Z79.4 - head porter baggage (current) use of insulin (2) 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
[2024-03-06 06:32] LABS: Basophils # (auto) 0.05 K/uL (0.00-0.20); Basophils % (auto) 0.5 %; Eosinophils # (auto) 0.32 K/uL (0.00-0.50); Eosinophils % (auto) 3.3 %; Hematocrit (blood only) 26.6 % (42.0-52.0); Hemoglobin 8.8 g/dl (14.0-18.0); Immature Granulocytes # (auto) 0.11 K/uL (0.01-0.20); Immature Granulocytes % (auto) 1.1 %; Lymphocytes # (auto) 1.34 K/uL (1.20-3.40); Lymphocytes % (auto) 13.9 %; Mean Corpuscular Hemoglobin 28.7 pg (25.0-34.0); Mean Corpuscular Hgb Conc 33.1 g/dL (32.0-36.0); Mean Corpuscular Volume 86.6 fL (80.0-100.0); Mean Platelet Volume 9.3 fL (9.4-12.4); Monocytes # (auto) 0.74 K/uL (0.11-0.59); Monocytes % (auto) 7.7 %; Neutrophils # (auto) 7.06 K/uL (1.40-6.50); Neutrophils % (auto) 73.5 %; Platelet Count 200 K/uL (130-400); RDW Coefficient of Variation 13.7 % (11.5-14.5); RDW Standard Deviation 42.5 fL (36.4-46.3); Red Blood Count 3.07 M/uL (4.70-6.10); White Blood Count 9.62 K/ul (4.8-10.8)
[2024-03-06 06:53] LABS: BUN Creatinine Ratio 28.1 (10-20); Calcium 8.8 mg/dl (8.6-10.3); Creatinine Clr Calc Pharmacy 94.1 ml/min
[2024-03-06] MEDS ORDERED: HEPARIN SOD 5,000 UNIT/0.5 ML VIAL SQ SCH (09:00)
--- NOTE | 2024-03-06 09:33 | Surgery Progress Note ---
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 Doing well postop, excellent doppler pulses. Incisions healing well. Can leave OOA if no further drainage. Will see pt in office in another 7-10 days for staple removal. Admission and Anticipated Discharge Date Admission Date: February 20, 2024 Subjective 78 yo m POD #6 after RLE fem-tibial in situ bypass, seen in f/u today. Pt states incisional pain tolerable. Scheduled for RLE foot surgery tomorrow by Dr Oakes. Pt denies any other new complaints. Review of Systems Review of Systems: All systems reviewed & are unremarkable except as noted in HPI & below Physical Exam Constitutional: WD/WN, vitals as above Cardiovascular: Vessels: femoral pulses present, posterior tibial pulses present (he has a good right post tib doppler pulse on the right foot) and radial pulses present; + dorsalis pedis pulses abnormal Extremities: normal capillary refill (decreased on the right) Skin: + incision (dressings are intact) Neurologic: CN's II-XI intact bilaterally and moves all extremities Psychiatric: A+Ox3, euthymic affect Results & Data Vital Signs (Past 12 Hours) Vital Signs Temp Pulse Pulse Resp BP BP Pulse Ox 03/06/24 07:49 36.7 C 65 16 138/66 96 03/06/24 01:30 36.8 C 61 18 125/65 97 03/05/24 23:25 03/05/24 23:13 36.6 C 81 17 152/72 H 97 03/05/24 21:47 67 O2 Del Method 03/06/24 07:49 Room Air 03/06/24 01:30 Room Air 03/05/24 23:25 Room Air 03/05/24 23:13 Room Air 03/05/24 21:47
--- NOTE | 2024-03-06 09:36 | Communication Note ---
Date of Service: March 06, 2024 Please do not use tourniquet for tma amputation this
--- NOTE | 2024-03-06 10:03 | Hospitalist Progress Note ---
Date of Service March 06, 2024 Assessment & Plan (1) Gangrene of right foot: Plan 78-year-old male who recently moved from [place], with PMH of HTN, DM, depression, ongoing tobacco use, heavy alcohol use [no drinking since last 6 months as per patient] who lives alone at home presented to the ED 02/19 with complaint of fall and found to have flu positive. Patient was feeling weak and fatigued. He slid from bed and fell down and he could not get up, he thinks he laid on the floor for 1 to 1 and half days and was finally able to call 911 and was brought in here. 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 hx of diabetic neuropathy with amputation of 5th toe of right foot MRI foot positive for acute osteomyelitis involving second toe proximal phalanx and head/neck of the second metatarsal. Possible septic arthritis involving the second MTP joint. 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 BLE extensive atherosclerotic disease. Podiatry evaled, s/p Right Second Ray Amputation 02/21, weightbearing as tolerated in a surgical shoe, recommended vascular surgery evaluation. Patient underwent left leg angiogram on 03/01 which showed occluded superficial femoral artery at its origin; peroneal is totally occluded. full details in procedure note Patient underwent right femoral to posterior tibial bypass on 03/04 Patient was observed in ICU overnight on 03/04; transferred out on 03/05. Discussion done with podiatry; plan for possible transmetatarsal amputation in next few days along with debridement of wound on the dorsal aspect. Will continue on cefazolin for the time being given the previous wound culture that grew staph and Grp B strep agalactiae PICC line has been placed on 02/26; depending on the cultures from the surgery; antibiotic may need to be adjusted. Hb on 03/05/2024 is 8.4g/dl; down from 11 pre-op; EBL- 500cc, monitor. Transfuse if less than 7. Remove nino Pt/OT 03/06/24- pt due to have surgery with podiatry once more on 03/07 Generalized weakness Influenza A Patient presented with flulike symptoms, generalized tiredness/fatigue Respiratory viral panel positive for influenza A Chest x-ray does not show infiltrates s/p Tamiflu droplet precautions discontinued on 02/28/2023 PT OT eval Elevated high sensitive troponin of undetermined significance in setting of influenza A high sensitivity elevated with no significant delta difference. Echo with EF. of 60-65%, grade I diastolic dysfunction, Left ventricle wall motion normal. Cardiology evaluated, appreciate recommendation. c/w crestor, OP ischemic w/u. Monitor replete electrolytes. Elevated CPK: resolved. History of hypertension: Continue home metoprolol tartrate and triamterene/hydrochlorothiazide and potassium supplement. Will monitor Depression: On Zoloft Type 2 Diabetes on long-acting insulin 20 units nightly For now will place on insulin sliding scale and monitor a1c 6.4 this admisison needs to establish new PCP Diet: DMII/HH Full code dvt prophylaxis : heparin sc started; discussed with vascular. dispo: per pt/ot recs post op Admission and Anticipated Discharge Date Admission Date: February 20, 2024 Subjective Patient was seen in the a.m. eating breakfast Denied acute concerns No acute events overnight Son was called and updated Review of Systems Review of Systems: All systems reviewed & are unremarkable except as noted in Subjective Physical Exam Physical Exam: General: Alert. No acute distress HEENT: NC/AT CV: RRR Resp: Breath sounds clear bilaterally, no increased effort of breathing Abdomen: Soft, nontender Extremities: blackened toe Results & Data Results & Data Vital Signs (Past 12 Hours) Vital Signs Temp Pulse Resp BP BP Pulse Ox O2 Del Method 03/06/24 07:49 36.7 C 65 16 138/66 96 Room Air 03/06/24 01:30 36.8 C 61 18 125/65 97 Room Air 03/05/24 23:25 Room Air 03/05/24 23:13 36.6 C 81 17 152/72 H 97 Room Air Diagnostic Findings Chest X-Ray 02/20/24 02:02 EXAM: XR chest 1V portable CLINICAL HISTORY: SEPSIS JMF TECHNIQUE: An X-ray image of the chest is obtained in AP projection. COMPARISON: No prior studies are available for comparison. FINDINGS: Pulmonary Parenchyma: Lungs show prominent perihilar bronchovascular markings with peribronchial cuffing. No evidence of consolidation, collapse, or focal opacities. No pulmonary nodules are identified. No evidence of pleural effusion or pleural thickening. Heart and Mediastinum: Heart size and shape are normal. No mediastinal widening or masses. No hilar or mediastinal lymphadenopathy. Bony Thorax: Bony thorax appears intact without fractures or deformities. Soft Tissues: Soft tissues overlying the chest wall are unremarkable. IMPRESSION: Bilateral perihilar prominent bronchovascular markings with peribronchial cuffing are non-specific findings; clinical correlation is advised. Electronically signed by Isaac Farrell 02-20-2024 03:[address] 02/20/24 02:06 EXAM: CT head/brain wo con CLINICAL HISTORY: Weakness, slid out of bed onto the floor, and laid on the floor for two days, pt states he did not hit his head. TECHNIQUE: An axial non-contrast CT scan of the brain was performed from the skull base to the high parietal region. One of the following dose reduction techniques was utilized for this exam: Automated exposure control, adjustment of the mA and/or kV according to patient size, and use of iterative reconstruction. DLP: 1674 mGy-cm, CTDI 103.2 mGy. COMPARISON: None. FINDINGS: Brain Parenchyma: There are a few tiny ill-defined [id number] areas noted in the subcortical and deep white matter bilaterally, suggestive of microvascular ischemic changes. Normal attenuation of the cerebral hemispheres, cerebellum, and brainstem. No evidence of acute infarct, hemorrhage, or mass effect. Ventricular System: The ventricular system, cortical sulci, and basal cisterns are prominent and consistent with senile changes. No evidence of subarachnoid hemorrhage or extra-axial fluid collections. Cerebellum and Brainstem: Normal size and signal. No masses, lesions, or areas of abnormal signal. Orbits: Normal appearance of the globes, optic nerves, and extraocular muscles. No evidence of orbital masses. Sinuses: Mild mucosal thickening in the frontal and ethmoid sinuses. Right maxillary mucosal sinus cysts. Patchy opacification of the mastoid air cells. Skull: No evidence of definite acute fracture. Additional: A fluid collection is seen along the lateral aspect of the right masseter muscle, measuring 46 x 8 mm in the right facilities operations technician space continuing posteriorly with the parotid space. Mild surrounding fat stranding is also seen. Imaging appearances are suggestive of an ongoing infective/inflammatory process. IMPRESSION: 1. No evidence of any acute intracranial event. 2. Age-related involutional and microvascular ischemic changes. 3. Soft tissue thickening with stranding and mild fluid are seen in the right masseter and right parotid space. Need clinical correlation and correlate with impact of trauma. 4. Further evaluation with a contrast-enhanced MRI brain can be considered if clinically indicated. 5. 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 Diabetic neuropathy Technique: Multiple T1 and T2-weighted magnetic resonance images were obtained of the right foot before and after the administration of 5.5 cc of Gadavist intravenous gadolinium contrast Findings: There has been amputation of the first digit at the level of the metatarsal base. There has been resection of the head, neck, and mid and distal shaft of the fifth metatarsal, with the fifth toe phalanges remaining There is bone marrow edema with enhancement involving the head and neck of the second metatarsal and there is bone marrow edema throughout the second toe proximal phalanx. This could be due to osteomyelitis. There is mild surrounding soft tissue edema and fluid. There is less severe bone marrow edema within the base and shaft of the second metatarsal. There is a suspected displaced and angulated fracture of the head of the second toe proximal phalanx. There is no subluxation or dislocation. No significant arthritic changes are seen. No focal osseous lesion is evident. No definite ligament tear is seen. The visualized tendons appear intact without tendinopathy, tenosynovitis or tear. There is mild edema of the foot musculature. There is a joint effusion involving the second metatarsophalangeal joint Impression: 1. Fracture of the head of the second toe proximal phalanx 2. Possible acute osteomyelitis involving the second toe proximal phalanx and the head and neck of the second metatarsal 3. Possible septic arthritis involving the second MTP joint 4. Prior great toe amputation and partial resection of the fifth metatarsal Electronically signed by Tevin Mtz 02-20-2024 6:36 PM Duplex Scan Lower Extremity Artery 02/23/24 12:37 BILATERAL LOWER EXTREMITY ARTERIAL DOPPLER ULTRASOUND CLINICAL HISTORY: Ischemia of limbs COMPARISON STUDY: No previous studies for comparison. TECHNIQUE: Color and duplex Doppler sonography of the arterial systems of both lower extremities was performed. Due to pain, ankle to brachial indices could not be obtained. FINDINGS: There is extensive atherosclerotic plaque within both lower extremities. There is biphasic flow within the right common femoral artery. Extensive thrombus within the right superficial femoral artery is noted. This vessel is largely occluded. There is trace flow within portions of the right superficial femoral artery. There is markedly dampened, monophasic flow within the right popliteal, posterior tibial, peroneal and anterior tibial arteries. The right dorsalis pedis is occluded. Biphasic flow within left common femoral, superficial femoral and popliteal arteries is noted. There are no elevated velocities. There is dampened, monophasic flow within the left calf vessels with reversal flow within portions of the left anterior tibial artery. IMPRESSION: 1. Extensive atherosclerotic plaque within the bilateral lower extremities. 2. 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 Findings will be called/faxed to the ordering provider at time of dictation. 3. Significantly diminished monophasic flow within the lateral calf vessels, right more severe than left. ACT 112: Negative or not required by law. Electronically signed by: Bigg Ha M.D. 02/23/2024 3:23 PM Extremity Venous Study 03/01/24 10:24 US venous mapping LE CLINICAL HISTORY: gangrene right foot TECHNIQUE: Real-time grayscale sonographic images of the veins of the right lower extremity were obtained. Comparison: None available at the time of this dictation. FINDINGS/IMPRESSION: Greater and lesser saphenous veins are compressible throughout with thickened rosales of the lesser saphenous vein. Measurements are as follows: Right greater saphenous vein Groin: 5 mm in diameter, 15 mm from the skin Proximal: 3.8 mm in diameter, 9 mm from the skin Mid: 3.8 mm in diameter, 5 mm and the skin Distal: 3.4 mm in diameter, 5 mm from the skin Knee: 3.6 mm in diameter, 6 mm from the skin Proximal calf: 3.9 mm in diameter, 3 mm from the skin Proximal branch: 2.4 mm in diameter, 2 mm from the skin Mid: 2.9 mm in diameter, 3 mm from the skin Distal: 3.2 mm in diameter, 2.6 mm from the skin Ankle: 3.4 mm in diameter, 2 mm of the skin Right lesser saphenous vein Knee: 3.3 mm in diameter , 9 mm from the skin Proximal calf: 0.5 mm in diameter, 4 mm from the skin Mid calf: 1 mm in diameter, 0.3 mm from the skin Distal calf: 1.5 mm in diameter, 0.3 mm from the skin. ACT 112: Negative or not required by law. Electronically signed by: Cedric Hussein M.D. 03/01/2024 2:54 PM
[2024-03-07 07:41] LABS: Basophils # (auto) 0.06 K/uL (0.00-0.20); Basophils % (auto) 0.7 %; Eosinophils # (auto) 0.31 K/uL (0.00-0.50); Eosinophils % (auto) 3.5 %; Hematocrit (blood only) 24.4 % (42.0-52.0); Immature Granulocytes % (auto) 1.1 %; Lymphocytes # (auto) 1.47 K/uL (1.20-3.40); Lymphocytes % (auto) 16.8 %; Mean Corpuscular Hemoglobin 28.6 pg (25.0-34.0); Mean Corpuscular Hgb Conc 32.8 g/dL (32.0-36.0); Mean Corpuscular Volume 87.1 fL (80.0-100.0); Mean Platelet Volume 9.2 fL (9.4-12.4); Monocytes # (auto) 0.65 K/uL (0.11-0.59); Monocytes % (auto) 7.4 %; Neutrophils # (auto) 6.16 K/uL (1.40-6.50); Neutrophils % (auto) 70.5 %; Nucleated RBC # (auto) 0.02 K/uL (0.00-0.12); Nucleated RBC % (auto) 0.2 %; Platelet Count 203 K/uL (130-400); RDW Coefficient of Variation 13.9 % (11.5-14.5); White Blood Count 8.75 K/ul (4.8-10.8)
[2024-03-07 08:01] LABS: Albumin Globulin Ratio 0.8 (0.9-2); BUN Creatinine Ratio 27.8 (10-20); Bilirubin,Total 0.3 mg/dl (0.2-1.0); Calcium 8.8 mg/dl (8.6-10.3); Creatinine Clr Calc Pharmacy 77.9 ml/min; Globulin 3.6 gm/dl (2.5-4.0); Magnesium 1.9 mg/dl (1.7-2.4); Phosphorus 2.7 mg/dl (2.5-4.9); Potassium 4.1 mmol/L (3.5-5.1); Total Protein 6.6 gm/dl (6.0-8.3)
--- NOTE | 2024-03-07 10:06 | Anesthesiology Consultation ---
Date of Service March 07, 2024 Assessment & Plan Chart Review Chart Review: Acceptable Risk for Surgery and Patient NOT seen in Pre Admission Testing History Surgery Operation Date: 02/22/24 09:00 Proposed Procedures p Right Second Toe Amputation - Donato Oakes DPM Operation Date: 03/01/24 09:00 Proposed Procedures p Right Lower Extremity Arteriogram Possible Intervention - Nate Snow MD Operation Date: 03/04/24 08:00 Proposed Procedures p Right Femoral to Posterior Tibial Bypass - Nate Snow MD Operation Date: 03/07/24 12:45 Proposed Procedures p Right Foot Transmetatarsal Amputation - Donato Oakes DPM Height/Weight Height: 5 ft 10 in Weight: 70.3 kg Allergies Allergy/AdvReac Type Severity Reaction Status Date / Time No Known Allergies Allergy Unverified 02/22/24 08:22 Medications Home Medications Medication Instructions Recorded Confirmed Last Taken insulin glargine 100 unit/mL (3 20 unit subcut UD 02/20/24 02/20/24 Unknown mL) subcutaneous pen ([place] [employer] U-100 Insulin) metoprolol tartrate 100 mg tablet 100 mg PO BID 02/20/24 02/20/24 Unknown potassium chloride 20 mEq 20 meq PO BID 02/20/24 02/20/24 Unknown tablet,extended release(part/cryst) sertraline 50 mg tablet 50 mg PO BID 02/20/24 02/20/24 Unknown thiamine HCl (vitamin B1) 100 mg 100 mg PO DAILY 02/20/24 02/20/24 Unknown tablet triamterene 75 1 tab PO DAILY 02/20/24 02/20/24 Unknown mg-hydrochlorothiazide 50 mg tablet Active Medications Generic Name Dose Route Start Last Admin Trade Name Freq PRN Reason Stop Dose Admin Acetaminophen 650 mg 02/20/24 10:33 03/06/24 08:56 Acetaminophen 325 Mg Tab PO 03/21/24 10:32 650 mg Q4H PRN Administration Pain or Fever Aspirin 81 mg 02/20/24 15:15 03/07/24 08:32 Aspirin 81 Mg Ectab PO 03/21/24 15:14 Not Given QAM ESTEFANI Heparin Sodium (Beef Lung) 5 ml 02/28/24 15:25 03/06/24 22:08 Heparin 10 Unit/Ml 5 Ml Flush FLUSH 03/29/24 15:24 5 ml PRN PRN Administration Flush Hydroxyzine HCl 25 mg 02/21/24 07:44 02/27/24 14:54 Hydroxyzine Hcl 25 Mg Tab PO 03/22/24 07:43 25 mg Q8H PRN Administration Anxiety Cefazolin Sodium 2,000 mg in 15 mls @ 3.75 mls/min 02/27/24 15:00 03/07/24 06:06 Ancef 2000mg IV 04/09/24 14:59 3.75 mls/min Q8H ESTEFANI Administration Insulin Aspart 0 units 02/20/24 11:30 03/07/24 08:26 Insulin Aspart Per Unit Charge SC 03/21/24 11:29 Not Given ACHS ESTEFANI Lactobacillus Acidophilus 1,250 mg 02/21/24 15:30 03/07/24 08:32 Advanced Probiotic 625 Mg Capsule PO 03/22/24 15:29 1,250 mg DAILY ESTEFANI Administration Levalbuterol HCl 1.25 mg 02/20/24 10:33 02/26/24 07:34 Levalbuterol 1.25 Mg/3 Ml Neb NEB 03/21/24 10:32 1.25 mg Q4R PRN Administration Shortness Of Breath Or Wheezing Loperamide HCl 2 mg 02/25/24 14:00 03/01/24 21:51 Loperamide Hcl 2 Mg Cap PO 03/24/24 16:35 2 mg Q3H PRN Administration Loose Stool Metoprolol Tartrate 100 mg 02/20/24 10:33 03/07/24 08:32 Metoprolol Tartrate 100 Mg Tab PO 03/21/24 10:32 100 mg BID ESTEFANI Administration Morphine Sulfate 1 - 4 mg 03/04/24 13:44 03/05/24 13:26 Morphine Sulfate 4 Mg/Ml 1 Ml Carp\Vial IV 03/18/24 13:43 1 mg Q2H PRN Administration Severe Pain (Scale 7, 8, 9,10) Oxycodone HCl 5 mg 02/22/24 12:30 03/07/24 09:01 Oxycodone Hcl Ir 5 Mg Tab (Immediate Release) PO 03/07/24 12:29 5 mg Q4H PRN Administration modeate to severe pain Potassium Chloride 20 meq 02/20/24 10:33 03/07/24 08:32 Potassium Chloride Crtab 20 Meq Tabcr PO 03/21/24 10:32 20 meq BID ESTEFANI Administration Psyllium Hydrophilic Mucilloid 4 gm 02/21/24 15:30 03/07/24 08:31 Psyllium Or Guar Gum Fiber 4gm Packet PO 03/22/24 15:29 4 gm QAM ESTEFANI Administration Rosuvastatin Calcium 10 mg 02/23/24 09:00 03/07/24 08:32 Rosuvastatin Calcium 10 Mg Tab PO 03/24/24 08:59 10 mg QAM ESTEFANI Administration Sertraline HCl 50 mg 02/20/24 10:33 03/07/24 08:32 Sertraline Hcl 50 Mg Tablet PO 03/21/24 10:32 50 mg BID ESTEFANI Administration Thiamine HCl 100 mg 02/20/24 10:33 03/07/24 08:32 Thiamine Hcl 100 Mg Tab PO 03/21/24 10:32 100 mg DAILY ESTEFANI Administration Triamterene/Hydrochlorothiazide 1 tab 02/20/24 10:33 03/07/24 08:31 Triamterene/Hctz 37.5/25mg Tab PO 03/21/24 10:32 1 tab DAILY ESTEFANI Administration NPO Date Last Intake of Fluids: 02/29/24 Time Last Intake of Fluids: 18:00 Date Last Intake of Solids: 02/29/24 Time Last Intake of Solids: 18:00 Social History Smoking Status: Current every day smoker Do You Dip or Chew Tobacco: No Hx Alcohol Use: No Alcohol Intake Frequency Comment: h/o alcohol abuse Hx Substance Use: No substance use type: does not use Physical Exam Vital Signs Last Vital Signs Temp 37.1 C 03/07/24 07:52 Pulse 63 03/07/24 07:52 Resp 16 03/07/24 07:52 BP 130/57 L 03/07/24 07:52 Pulse Ox 96 03/07/24 07:52 O2 Del Method Room Air 03/07/24 07:52 O2 Flow Rate 2 03/04/24 12:40 Testing Laboratory Results 03/07/24 07:11 03/07/24 07:11 PT 11.4 Seconds (9.0-12.0) 02/23/24 16:59 INR 1.1 (0.9-1.1) 02/23/24 16:59 APTT 34 Seconds (21-31) H 02/23/24 16:59 Hemoglobin A1c 6.4 % (4.5-5.6) H 02/21/24 05:29 Urine Color Yellow 02/20/24 02:21 Urine Appearance Clear (Clear) 02/20/24 02:21 Urine pH 5.0 (4.5-7.5) 02/20/24 02:21 Ur Specific [place] 1.022 (1.000-1.030) 02/20/24 02:21 Urine Protein 1+ (Negative) H 02/20/24 02:21 Urine Glucose (UA) Negative (Negative) 02/20/24 02:21 Urine Ketones 2+ (Negative) H 02/20/24 02:21 Urine Nitrite Negative (Negative) 02/20/24 02:21 Ur Leukocyte Esterase Negative (Negative) 02/20/24 02:21 Urine WBC (Auto) 0-5 /hpf (0-5) 02/20/24 02:21 Urine RBC (Auto) 0-2 /hpf (0-2) 02/20/24 02:21 U Hyaline Cast (Auto) 6-10 /lpf (0-2) H 02/20/24 02:21 U Epithel Cells (Auto) 0-2 /hpf (0-2) 02/20/24 02:21 Urine Bacteria (Auto) None Seen (None Seen) 02/20/24 02:21 Blood Type AB Positive 03/01/24 15:08 Antibody Screen NEGATIVE 03/01/24 15:08 02/22/24 09:15 Gram Stain - Final Toe,Right Second Aerobic and Anaerobic Culture - Final Staphylococcus aureus Strep agalactiae (group B) 02/20/24 02:12 Aerobic Blood Culture - Final Blood No growth in Aerobic bottle after 5 days. Anaerobic Blood Culture - Final No growth in Anaerobic bottle after 5 days. 02/20/24 02:20 Aerobic Blood Culture - Final Blood No growth in Aerobic bottle after 5 days. Anaerobic Blood Culture - Final No growth in Anaerobic bottle after 5 days. 03/07/24 03/07/24 08:08 05:17 POC Glucose 133 H 164 H Electrocardiogram Date: 02/22/24 Normal sinus rhythm with sinus arrhythmia Non-specific intra-ventricular conduction delay Nonspecific ST abnormality Anterolateral leads Abnormal ECG
--- NOTE | 2024-03-07 12:26 | Hospitalist Progress Note ---
Date of Service March 07, 2024 Assessment & Plan (1) Gangrene of right foot: Plan 78-year-old male who recently moved from [place], with PMH of HTN, DM, depression, ongoing tobacco use, heavy alcohol use [no drinking since last 6 months as per patient] who lives alone at home presented to the ED 02/19 with complaint of fall and found to have flu positive. Patient was feeling weak and fatigued. He slid from bed and fell down and he could not get up, he thinks he laid on the floor for 1 to 1 and half days and was finally able to call 911 and was brought in here. 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 hx of diabetic neuropathy with amputation of 5th toe of right foot MRI foot positive for acute osteomyelitis involving second toe proximal phalanx and head/neck of the second metatarsal. Possible septic arthritis involving the second MTP joint. 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 BLE extensive atherosclerotic disease. Podiatry evaled, s/p Right Second Ray Amputation 02/21, weightbearing as tolerated in a surgical shoe, recommended vascular surgery evaluation. Patient underwent left leg angiogram on 03/01 which showed occluded superficial femoral artery at its origin; peroneal is totally occluded. full details in procedure note Patient underwent right femoral to posterior tibial bypass on 03/04 Patient was observed in ICU overnight on 03/04; transferred out on 03/05. Discussion done with podiatry; plan for possible transmetatarsal amputation in next few days along with debridement of wound on the dorsal aspect. Will continue on cefazolin for the time being given the previous wound culture that grew staph and Grp B strep agalactiae PICC line has been placed on 02/26; depending on the cultures from the surgery; antibiotic may need to be adjusted. Hb on 03/05/2024 is 8.4g/dl; down from 11 pre-op; EBL- 500cc, monitor. Transfuse if less than 7. Remove nino Pt/OT 03/06/24- pt due to have surgery with podiatry once more on 03/0703/07/24- pt having R foot transmetatarsal amputation today as well as debridement. Appreciate podiatry recs, follow intraop cultures Generalized weakness Influenza A Patient presented with flulike symptoms, generalized tiredness/fatigue Respiratory viral panel positive for influenza A Chest x-ray does not show infiltrates s/p Tamiflu droplet precautions discontinued on 02/28/2023 PT OT eval Elevated high sensitive troponin of undetermined significance in setting of influenza A high sensitivity elevated with no significant delta difference. Echo with EF. of 60-65%, grade I diastolic dysfunction, Left ventricle wall motion normal. Cardiology evaluated, appreciate recommendation. c/w crestor, OP ischemic w/u. Monitor replete electrolytes. Elevated CPK: resolved. History of hypertension: Continue home metoprolol tartrate and triamterene/hydrochlorothiazide and potassium supplement. Will monitor Depression: On Zoloft Type 2 Diabetes on long-acting insulin 20 units nightly For now will place on insulin sliding scale and monitor a1c 6.4 this admisison needs to establish new PCP Diet: DMII/HH Full code dvt prophylaxis : heparin sc started; discussed with vascular. dispo: per pt/ot recs post op- currently recommending rehab Admission and Anticipated Discharge Date Admission Date: February 20, 2024 Subjective pt was seen before his surgery. Anxious to have it completed Denying any fevers, chills Review of Systems Review of Systems: All systems reviewed & are unremarkable except as noted in Subjective Physical Exam Physical Exam: General: Alert. No acute distress HEENT: NC/AT CV: RRR Resp: Breath sounds clear bilaterally, no increased effort of breathing Abdomen: Soft, nontender Extremities: blackened toe Results & Data Results & Data Vital Signs (Past 12 Hours) Vital Signs Temp Pulse Pulse Resp BP BP Pulse Ox 03/07/24 11:52 36.5 C 58 L 16 112/53 L 96 03/07/24 07:52 37.1 C 63 16 130/57 L 96 03/07/24 07:02 64 03/07/24 02:32 36.9 C 60 18 125/63 95 O2 Del Method 03/07/24 11:52 Room Air 03/07/24 07:52 Room Air 03/07/24 07:02 03/07/24 02:32 Room Air
--- NOTE | 2024-03-07 12:28 | History & Physical Bridge Note ---
Date of Service March 07, 2024 History & Physical Bridge Note I have examined the patient, reviewed the History & Physical and in the interval since the performance of the History & Physical I have noted the following changes of clinical significance: no changes noted. Right third toe extensively necrotic. Dorsal wound remains fibrotic/eschar. Will plan on debridement of this wound in addition to TMA. Patient and son are amenable. Consent obtained for these procedures. All questions answered.
[2024-03-07] MEDS ORDERED: LIDOCAINE 2% 2 ML VIAL/AMP(20MG/ML) INFIL ONE (12:40)
[2024-03-07] MEDS ORDERED: ONDANSETRON INJ 2 MG/ML 2 ML VIAL ONE (12:40)
[2024-03-07] MEDS ORDERED: PROPOFOL IV EMULSION 10 MG/ML 20 ML VIAL IV ONE (12:40)
[2024-03-07] MEDS ORDERED: fentaNYL citrate PF 100 MCG/2 ML VIAL ONE (12:41)
[2024-03-07] MEDS ORDERED: Nursing to Pharmacy Communication SCH (12:45)
[2024-03-07] MEDS ORDERED: PROMETHAZINE HCL 6.25 MG in SODIUM CHLORIDE 0.9% 50 ML IV PRN (12:52)
[2024-03-07] MEDS ORDERED: ePHEDrine sulfate 50 MG/ML AMP IV PRN (12:52)
[2024-03-07] MEDS ORDERED: fentaNYL citrate PF 100 MCG/2 ML VIAL IV PRN (12:52)
[2024-03-07] MEDS ORDERED: ATROPINE SULFATE 0.1 MG/ML 10ML SYR IV PRN (12:52)
[2024-03-07] MEDS ORDERED: ONDANSETRON INJ 2 MG/ML 2 ML VIAL IV PRN (12:52)
[2024-03-07] MEDS: BUPIVACAINE 0.5 % 5 MG/1 ML MPF 30ML VIAL ONE (13:01)
[2024-03-07] MEDS ORDERED: SODIUM CHLORIDE 0.9% PF INJ 10 ML VIAL ONE (13:03)
[2024-03-07] MEDS ORDERED: ePHEDrine sulfate 50 MG/ML AMP ONE (13:03)
--- NOTE | 2024-03-07 13:36 | Post Operative Brief Note ---
Immediate Post Op Note Date of Surgery March 07, 2024 Pre & Post Diagnosis Operation Date: 03/07/24 12:45 Pre-Op Diagnosis: Type 2 diabetes mellitus with diabetic polyneuropathy, Diabetes mellitus with peripheral angiopathy with gangrene, Cellulitis of right leg, Gangrene of right foot, Acute osteomyelitis of right foot Post-Op Diagnosis: Type 2 diabetes mellitus with diabetic polyneuropathy, Diabetes mellitus with peripheral angiopathy with gangrene, Cellulitis of right leg, Gangrene of right foot, Acute osteomyelitis of right foot I identified the patient and participated in the time-out.: Yes Procedure Operation Date: 03/07/24 12:45 Actual Procedures p Right Foot Transmetatarsal Amputation, right ankle would excisional debridement(Right) - Donato Oakes DPM Surgeon Donato Oakes DPM Vp Analysis None Estimated Blood Loss 30 Findings Consistent with Post-Op Diagnosis Specimens Right forefoot pathology Right second metatarsal proximal margin Drains [place] Catheter Anesthesia Type General Complications none Disposition Accompanied Patient To Recovery: Yes Disposition: Recovery Room
--- NOTE | 2024-03-07 14:44 | Anesthesiology Progress Note ---
Date of Service March 07, 2024 Anesthesia Post Procedure Vital Signs Vital Signs: Temp Pulse Pulse Pulse Resp BP BP 03/07/24 14:30 64 20 110/54 L 03/07/24 14:20 36.7 C 67 21 117/56 L 03/07/24 14:10 62 18 112/56 L 03/07/24 14:00 64 21 118/69 03/07/24 13:50 66 22 118/72 03/07/24 13:40 36.3 C L 68 21 120/61 03/07/24 12:41 36.5 C 63 20 124/60 03/07/24 11:52 36.5 C 58 L 16 112/53 L 03/07/24 07:52 37.1 C 63 16 130/57 L 03/07/24 07:02 64 03/07/24 02:32 36.9 C 60 18 125/63 03/06/24 22:28 37.0 C 62 18 118/59 L 03/06/24 21:55 65 03/06/24 19:34 36.8 C 72 18 147/70 H 03/06/24 16:04 36.7 C 82 16 119/64 Pulse Ox O2 Del Method O2 Flow Rate 03/07/24 14:30 92 Room Air 03/07/24 14:20 96 Room Air 03/07/24 14:10 98 Oxymask 2 03/07/24 14:00 100 Oxymask 2 03/07/24 13:50 98 Oxymask 4 03/07/24 13:40 99 Oxymask 6 03/07/24 12:41 97 Room Air 03/07/24 11:52 96 Room Air 03/07/24 07:52 96 Room Air 03/07/24 07:02 03/07/24 02:32 95 Room Air 03/06/24 22:28 97 Room Air 03/06/24 21:55 03/06/24 19:34 03/06/24 16:04 93 Room Air Pain Intensity Right Foot: Pain Intensity: 8 Transfer of Care Handoff Completed per policy Notes Mental Status: alert / awake / arousable Patient Amnestic to Procedure: Yes Nausea / Vomiting: adequately controlled Pain: adequately controlled Airway Patency, RR, SpO2: stable & adequate BP & HR: stable & adequate Hydration State: stable & adequate Anesthetic Complications: no major complications apparent
[2024-03-07] MEDS: HEPARIN SOD 5,000 UNIT/0.5 ML VIAL SQ SCH (15:13)
[2024-03-07] MEDS: LACTATED RINGER'S 1,000 ML IV SCH (15:29)
[2024-03-07] MEDS: LACTATED RINGER'S 1,000 ML IV ONE (19:40)
[2024-03-07] MEDS: oxyCODONE HCL IR 5 MG TAB (IMMEDIATE RELEASE) PO PRN (23:49)
[2024-03-08 06:36] LABS: Basophils # (auto) 0.05 K/uL (0.00-0.20); Basophils % (auto) 0.7 %; Eosinophils # (auto) 0.39 K/uL (0.00-0.50); Eosinophils % (auto) 5.2 %; Hematocrit (blood only) 22.6 % (42.0-52.0); Hemoglobin 7.2 g/dl (14.0-18.0); Immature Granulocytes # (auto) 0.11 K/uL (0.01-0.20); Immature Granulocytes % (auto) 1.5 %; Lymphocytes # (auto) 1.39 K/uL (1.20-3.40); Lymphocytes % (auto) 18.7 %; Mean Corpuscular Hemoglobin 28.5 pg (25.0-34.0); Mean Corpuscular Hgb Conc 31.9 g/dL (32.0-36.0); Mean Corpuscular Volume 89.3 fL (80.0-100.0); Mean Platelet Volume 9.3 fL (9.4-12.4); Monocytes # (auto) 0.57 K/uL (0.11-0.59); Monocytes % (auto) 7.7 %; Neutrophils # (auto) 4.92 K/uL (1.40-6.50); Neutrophils % (auto) 66.2 %; Platelet Count 192 K/uL (130-400); RDW Coefficient of Variation 14.5 % (11.5-14.5); RDW Standard Deviation 45.1 fL (36.4-46.3); Red Blood Count 2.53 M/uL (4.70-6.10); White Blood Count 7.43 K/ul (4.8-10.8)
[2024-03-08 06:47] LABS: Albumin Globulin Ratio 0.8 (0.9-2); Albumin Level 2.8 gm/dl (3.4-5.0); BUN Creatinine Ratio 20.9 (10-20); Bilirubin,Total 0.3 mg/dl (0.2-1.0); Calcium 8.5 mg/dl (8.6-10.3); Creatinine Clr Calc Pharmacy 73.8 ml/min; Globulin 3.6 gm/dl (2.5-4.0); Magnesium 1.8 mg/dl (1.7-2.4); Phosphorus 3.1 mg/dl (2.5-4.9); Potassium 3.9 mmol/L (3.5-5.1); Total Protein 6.4 gm/dl (6.0-8.3)
[2024-03-08 07:06] LABS: Ferritin 408.8 ng/ml (8-388)
[2024-03-08 07:13] LABS: Folate (Folic Acid),Ser orPlas 3.64 ng/ml (>5.38)
[2024-03-08 07:26] LABS: RBC Morphology Unremarkable
--- NOTE | 2024-03-08 09:31 | Surgery Progress Note ---
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 Doing well postop, excellent doppler pulses. Incisions healing well. Can leave OOA if no further drainage. Will see pt in office for staple removal. Admission and Anticipated Discharge Date Admission Date: February 20, 2024 Subjective 78 yo m POD #7 after RLE fem-PT in situ bypass, doing well post op. Had RLE TMA yesterday by Dr Oakes. Pt admits some pain in foot, but no other new co mplaints. Review of Systems Review of Systems: All systems reviewed & are unremarkable except as noted in HPI & below Physical Exam Constitutional: WD/WN, vitals as above Cardiovascular: Vessels: femoral pulses present, posterior tibial pulses present (he has a good right post tib doppler pulse RLE) and radial pulses present Skin: + incision (dressings are intact) Neurologic: CN's II-XI intact bilaterally and moves all extremities Psychiatric: A+Ox3, euthymic affect Results & Data Vital Signs (Past 12 Hours) Vital Signs Temp Pulse Pulse Resp BP Pulse Ox O2 Del Method 03/08/24 07:56 37.0 C 61 16 114/53 L 97 Room Air 03/08/24 07:32 70 03/08/24 03:08 36.6 C 61 18 119/54 L 96 Room Air 03/07/24 23:24 Room Air 03/07/24 22:24 37.3 C 86 18 124/63 97 Room Air 03/07/24 21:52 62
[2024-03-08] MEDS: FOLIC ACID 1 MG TAB PO SCH (10:52)
[2024-03-08 13:23] LABS: Hematocrit (blood only) 24.9 % (42.0-52.0); Hemoglobin 8.1 g/dl (14.0-18.0)
--- NOTE | 2024-03-08 13:58 | Hospitalist Progress Note ---
Date of Service March 08, 2024 Assessment & Plan (1) Gangrene of right foot: Plan 78-year-old male who recently moved from [place], with PMH of HTN, DM, depression, ongoing tobacco use, heavy alcohol use [no drinking since last 6 months as per patient] who lives alone at home presented to the ED 02/19 with complaint of fall and found to have flu positive. Patient was feeling weak and fatigued. He slid from bed and fell down and he could not get up, he thinks he laid on the floor for 1 to 1 and half days and was finally able to call 911 and was brought in here. 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 hx of diabetic neuropathy with amputation of 5th toe of right foot MRI foot positive for acute osteomyelitis involving second toe proximal phalanx and head/neck of the second metatarsal. Possible septic arthritis involving the second MTP joint. 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 BLE extensive atherosclerotic disease. Podiatry evaled, s/p Right Second Ray Amputation 02/21, weightbearing as tolerated in a surgical shoe, recommended vascular surgery evaluation. Patient underwent left leg angiogram on 03/01 which showed occluded superficial femoral artery at its origin; peroneal is totally occluded. full details in procedure note Patient underwent right femoral to posterior tibial bypass on 03/04 Patient was observed in ICU overnight on 03/04; transferred out on 03/05. Discussion done with podiatry; plan for possible transmetatarsal amputation in next few days along with debridement of wound on the dorsal aspect. Will continue on cefazolin for the time being given the previous wound culture that grew staph and Grp B strep agalactiae PICC line has been placed on 02/26; depending on the cultures from the surgery; antibiotic may need to be adjusted. Hb on 03/05/2024 is 8.4g/dl; down from 11 pre-op; EBL- 500cc, monitor. Transfuse if less than 7. Remove nino Pt/OT 03/06/24- pt due to have surgery with podiatry once more on 03/0703/07/24- pt having R foot transmetatarsal amputation today as well as debridement. Appreciate podiatry recs, follow intraop cultures 03/08/24- post op day #1, per podiatry clean margins, no intraop samples obtained. Continue with IV Cefazolin at this time....followup with ID once more to confirm plan for discharge Anemia Hgb has slowly downtrended from 14.7 earlier during admission to 8 Anemia panel noting low folate levels Started on folate supplement Continue to monitor hgb post op Generalized weakness Influenza A Patient presented with flulike symptoms, generalized tiredness/fatigue Respiratory viral panel positive for influenza A Chest x-ray does not show infiltrates s/p Tamiflu droplet precautions discontinued on 02/28/2023 PT OT eval Elevated high sensitive troponin of undetermined significance in setting of influenza A high sensitivity elevated with no significant delta difference. Echo with EF. of 60-65%, grade I diastolic dysfunction, Left ventricle wall motion normal. Cardiology evaluated, appreciate recommendation. c/w crestor, OP ischemic w/u. Monitor replete electrolytes. Elevated CPK: resolved. History of hypertension: Continue home metoprolol tartrate and triamterene/hydrochlorothiazide and potassium supplement. Will monitor Depression: On Zoloft Type 2 Diabetes on long-acting insulin 20 units nightly For now will place on insulin sliding scale and monitor a1c 6.4 this admission needs to establish new PCP Diet: DMII/HH Full code dvt prophylaxis : heparin sc started; discussed with vascular. dispo: per pt/ot recs post op- currently recommending rehab Admission and Anticipated Discharge Date Admission Date: February 20, 2024 Subjective pt notes some pain post op Otherwise no concerns Pt's son called and voicemail left on phone after he identified himself on it Review of Systems Review of Systems: All systems reviewed & are unremarkable except as noted in Subjective Physical Exam Physical Exam: General: Alert. No acute distress HEENT: NC/AT CV: RRR Resp: Breath sounds clear bilaterally, no increased effort of breathing Abdomen: Soft, nontender Extremities: right foot with noted amputation, covered in JAILENE bandage Results & Data Results & Data Vital Signs (Past 12 Hours) Vital Signs Temp Pulse Pulse Resp BP Pulse Ox O2 Del Method 03/08/24 12:32 36.7 C 76 16 113/53 L 97 Room Air 03/08/24 08:30 Room Air 03/08/24 07:56 37.0 C 61 16 114/53 L 97 Room Air 03/08/24 07:32 70 03/08/24 03:08 36.6 C 61 18 119/54 L 96 Room Air
--- NOTE | 2024-03-08 23:30 | Podiatry Progress Note ---
Date of Service March 08, 2024 Assessment & Plan (1) Type 2 diabetes mellitus with diabetic polyneuropathy: (2) Diabetes mellitus with peripheral angiopathy with gangrene: (3) Cellulitis of right leg: (4) Gangrene of right foot: (5) Acute osteomyelitis of right foot: Plan - Patient examined and evaluated Status post right TMA - Dressing left intact POD #1. Can begin daily dressing changes on Monday with Aquacel Ag to dorsal rearfoot ulcer and xeroform to surgical site/sutures. - Clinically clear margins expected. Source control likely. Pathology pending. - Could likely d/c home prior to definitive results on empiric oral abx, but will defer to primary care/ID. - Will follow. Admission and Anticipated Discharge Date Admission Date: February 20, 2024 Subjective Patient seen at lunchtime. Good appetite. No pain to foot. Feeling better, more alert. No new concerns POD #1. Review of Systems Constitutional: no fever, no chills and no fatigue Eyes: no problem reported Ear, Nose, Mouth, Throat: no problem reported Respiratory: no problem reported Cardiovascular: + edema; no problem reported Gastrointestinal: no nausea, no vomiting and no problem reported Musculoskeletal: no problem reported Integumentary: + skin ulcer, + wounds and + erythema Neurologic: + loss of sensation, + numbness and + pa resthesia; no generalized weakness Psychiatric: no problem reported Physical Exam Physical Exam: Lower extremity focused exam: DP/PT pulses nonpalpable. Dressing left intact POD #1. No ascending cellulitis noted. No bleeding to dressing Constitutional: WD/WN, vitals as above + ill appearing and + thin Eyes: PERRL, conjunctivae normal, anicteric sclerae ENMT: external ear and nose normal, oropharynx normal Mouth: + poor dentition Neck: trachea midline, no thyromegaly Respiratory: normal respiratory effort and + respiratory distress Cardiovascular: RRR, no murmur, no edema Vessels: + posterior tibial pulses abnormal and + dorsalis pedis pulses abnormal Extremities: normal capillary refill (With the exception of the right second toe which is gangrenous, absent ANIMAL THERAPIST) Chest (Breasts): normal inspection/palpation of breasts Gastrointestinal (Abdomen): Inspection/Auscultation: abdomen normal to inspection; abdomen not distended Percussion/Palpation: no guarding Musculoskeletal: Head/Neck/Chest: normocephalic and head atraumatic Extremities: + limited ROM of extremities, + muscle atrophy and + foot abnormality Skin: + ulcer, + skin tightening, + skin atrop hy, + erythema and + eschar Neurologic: plantar reflexes intact bilaterally and moves all extremities; + abnormal sensation to monofilament Psychiatric: A+Ox3, euthymic affect Results & Data Results & Data Vital Signs (Past 12 Hours) Vital Signs Temp Pulse Pulse Resp BP Pulse Ox O2 Del Method 03/08/24 22:09 36.8 C 73 18 116/62 97 Room Air 03/08/24 21:47 75 03/08/24 19:50 Room Air 03/08/24 19:22 36.7 C 75 16 118/52 L 95 Room Air 03/08/24 15:55 37.0 C 68 16 112/62 96 Room Air 03/08/24 15:19 69 03/08/24 12:32 36.7 C 76 16 113/53 L 97 Room Air (1) 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 mellitus press tender long goods insulin use: with assisted use Qualified Code(s): E11.42 - Type 2 diabetes mellitus with diabetic polyneuropathy; Z79.4 - computer terminal operator (current) use of insulin (2) Diabetes mellitus with peripheral angiopathy with gangrene Diabetes mellitus press tender long goods insulin use: with assisted use Diabetes mellitus type: type 2 Qualified Code(s): E11.52 - Type 2 diabetes mellitus with diabetic peripheral angiopathy with gangrene; Z79.4 - penitentiary (current) use of insulin
[2024-03-09 05:02] LABS: Basophils # (auto) 0.04 K/uL (0.00-0.20); Basophils % (auto) 0.5 %; Hematocrit (blood only) 22.6 % (42.0-52.0); Hemoglobin 7.3 g/dl (14.0-18.0); Immature Granulocytes # (auto) 0.12 K/uL (0.01-0.20); Immature Granulocytes % (auto) 1.6 %; Lymphocytes % (auto) 15.9 %; Mean Corpuscular Hemoglobin 28.7 pg (25.0-34.0); Mean Corpuscular Hgb Conc 32.3 g/dL (32.0-36.0); Mean Platelet Volume 9.2 fL (9.4-12.4); Monocytes # (auto) 0.61 K/uL (0.11-0.59); Monocytes % (auto) 8.1 %; Neutrophils # (auto) 5.26 K/uL (1.40-6.50); Neutrophils % (auto) 69.9 %; Nucleated RBC # (auto) 0.03 K/uL (0.00-0.12); Nucleated RBC % (auto) 0.4 %; Platelet Count 195 K/uL (130-400); RDW Coefficient of Variation 14.6 % (11.5-14.5); RDW Standard Deviation 44.8 fL (36.4-46.3); Red Blood Count 2.54 M/uL (4.70-6.10); White Blood Count 7.53 K/ul (4.8-10.8)
[2024-03-09 05:14] LABS: Albumin Globulin Ratio 0.8 (0.9-2); Albumin Level 2.7 gm/dl (3.4-5.0); BUN Creatinine Ratio 24.1 (10-20); Bilirubin,Total 0.2 mg/dl (0.2-1.0); Calcium 7.8 mg/dl (8.6-10.3); Creatinine Clr Calc Pharmacy 72.9 ml/min; Globulin 3.4 gm/dl (2.5-4.0); Magnesium 1.8 mg/dl (1.7-2.4); Phosphorus 2.4 mg/dl (2.5-4.9); Potassium 4.2 mmol/L (3.5-5.1); Total Protein 6.1 gm/dl (6.0-8.3)
[2024-03-09 05:34] LABS: Polychromasia 1+
[2024-03-09] MEDS: POT PHOSPHATE MONOBASIC W/ SOD TAB PO SCH (10:35)
[2024-03-09 13:26] LABS: Hematocrit (blood only) 26.5 % (42.0-52.0); Hemoglobin 8.6 g/dl (14.0-18.0)
--- NOTE | 2024-03-09 14:02 | Hospitalist Progress Note ---
Date of Service March 09, 2024 Assessment & Plan (1) Gangrene of right foot: Plan 78-year-old male who recently moved from [place], with PMH of HTN, DM, depression, ongoing tobacco use, heavy alcohol use [no drinking since last 6 months as per patient] who lives alone at home presented to the ED 02/19 with complaint of fall and found to have flu positive. Patient was feeling weak and fatigued. He slid from bed and fell down and he could not get up, he thinks he laid on the floor for 1 to 1 and half days and was finally able to call 911 and was brought in here. 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 hx of diabetic neuropathy with amputation of 5th toe of right foot MRI foot positive for acute osteomyelitis involving second toe proximal phalanx and head/neck of the second metatarsal. Possible septic arthritis involving the second MTP joint. 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 BLE extensive atherosclerotic disease. Podiatry evaled, s/p Right Second Ray Amputation 02/21, weightbearing as tolerated in a surgical shoe, recommended vascular surgery evaluation. Patient underwent left leg angiogram on 03/01 which showed occluded superficial femoral artery at its origin; peroneal is totally occluded. full details in procedure note Patient underwent right femoral to posterior tibial bypass on 03/04 Patient was observed in ICU overnight on 03/04; transferred out on 03/05. Discussion done with podiatry; plan for possible transmetatarsal amputation in next few days along with debridement of wound on the dorsal aspect. Will continue on cefazolin for the time being given the previous wound culture that grew staph and Grp B strep agalactiae PICC line has been placed on 02/26; depending on the cultures from the surgery; antibiotic may need to be adjusted. Hb on 03/05/2024 is 8.4g/dl; down from 11 pre-op; EBL- 500cc, monitor. Transfuse if less than 7. Remove nino Pt/OT 03/06/24- pt due to have surgery with podiatry once more on 03/0703/07/24- pt having R foot transmetatarsal amputation today as well as debridement. Appreciate podiatry recs, follow intraop cultures 03/08/24- post op day #1, per podiatry clean margins, no intraop samples obtained. Continue with IV Cefazolin at this time....followup with ID once more to confirm plan for discharge 03/09/24-POD #2, awaiting pathology, continue with abx, f/u with ID on Monday. Son updated. Anemia Hgb has slowly downtrended from 14.7 earlier during admission to 8 Anemia panel noting low folate levels Started on folate supplement Continue to monitor hgb post op Generalized weakness Influenza A Patient presented with flulike symptoms, generalized tiredness/fatigue Respiratory viral panel positive for influenza A Chest x-ray does not show infiltrates s/p Tamiflu droplet precautions discontinued on 02/28/2023 PT OT eval Elevated high sensitive troponin of undetermined significance in setting of influenza A high sensitivity elevated with no significant delta difference. Echo with EF. of 60-65%, grade I diastolic dysfunction, Left ventricle wall motion normal. Cardiology evaluated, appreciate recommendation. c/w crestor, OP ischemic w/u. Monitor replete electrolytes. Elevated CPK: resolved. History of hypertension: Continue home metoprolol tartrate and triamterene/hydrochlorothiazide and potassium supplement. Will monitor Depression: On Zoloft Type 2 Diabetes on long-acting insulin 20 units nightly For now will place on insulin sliding scale and monitor a1c 6.4 this admission needs to establish new PCP Diet: DMII/HH Full code dvt prophylaxis : heparin sc started; discussed with vascular. dispo: per pt/ot recs post op- currently recommending rehab Admission and Anticipated Discharge Date Admission Date: February 20, 2024 Subjective pt was seen in the AM Concerned about a wound on his sacrum Pain controlled Son updated Review of Systems Review of Systems: All systems reviewed & are unremarkable except as noted in Subjective Physical Exam Physical Exam: General: Alert. No acute distress HEENT: NC/AT CV: RRR Resp: Breath sounds clear bilaterally, no increased effort of breathing Abdomen: Soft, nontender Extremities: right foot with noted amputation, covered in JAILENE bandage Results & Data Results & Data Vital Signs (Past 12 Hours) Vital Signs Temp Pulse Resp BP Pulse Ox O2 Del Method 03/09/24 11:00 36.7 C 56 L 18 115/60 96 Room Air 03/09/24 08:53 65 137/59 L 03/09/24 07:00 Room Air 03/09/24 07:00 36.7 C 61 16 103/48 L 96 Room Air 03/09/24 03:12 36.5 C 67 18 117/55 L 97 Room Air
[2024-03-10 06:08] LABS: Albumin Globulin Ratio 0.8 (0.9-2); Albumin Level 2.8 gm/dl (3.4-5.0); BUN Creatinine Ratio 26.3 (10-20); Bilirubin,Total 0.3 mg/dl (0.2-1.0); Globulin 3.7 gm/dl (2.5-4.0); Magnesium 1.8 mg/dl (1.7-2.4); Phosphorus 2.8 mg/dl (2.5-4.9); Potassium 3.8 mmol/L (3.5-5.1); Total Protein 6.5 gm/dl (6.0-8.3)
[2024-03-10 06:09] LABS: Basophils # (auto) 0.05 K/uL (0.00-0.20); Basophils % (auto) 0.7 %; Eosinophils # (auto) 0.31 K/uL (0.00-0.50); Eosinophils % (auto) 4.2 %; Hemoglobin 7.8 g/dl (14.0-18.0); Immature Granulocytes # (auto) 0.16 K/uL (0.01-0.20); Immature Granulocytes % (auto) 2.1 %; Lymphocytes # (auto) 1.07 K/uL (1.20-3.40); Lymphocytes % (auto) 14.4 %; Mean Corpuscular Hemoglobin 28.8 pg (25.0-34.0); Mean Corpuscular Hgb Conc 32.5 g/dL (32.0-36.0); Mean Corpuscular Volume 88.6 fL (80.0-100.0); Mean Platelet Volume 9.1 fL (9.4-12.4); Monocytes # (auto) 0.64 K/uL (0.11-0.59); Monocytes % (auto) 8.6 %; Neutrophils # (auto) 5.22 K/uL (1.40-6.50); Nucleated RBC # (auto) 0.05 K/uL (0.00-0.12); Nucleated RBC % (auto) 0.7 %; Platelet Count 183 K/uL (130-400); RDW Coefficient of Variation 15.1 % (11.5-14.5); RDW Standard Deviation 45.8 fL (36.4-46.3); Red Blood Count 2.71 M/uL (4.70-6.10); White Blood Count 7.45 K/ul (4.8-10.8)
[2024-03-10 06:34] LABS: Basophilic Stippling Occasional; Polychromasia 1+
--- NOTE | 2024-03-10 09:46 | Podiatry Progress Note ---
Date of Service March 09, 2024 Assessment & Plan (1) Type 2 diabetes mellitus with diabetic polyneuropathy: (2) Diabetes mellitus with peripheral angiopathy with gangrene: (3) Cellulitis of right leg: (4) Gangrene of right foot: (5) Acute osteomyelitis of right foot: Plan - Patient examined and evaluated Status post right TMA - Foot cleaned, redressed with xeroform to surgical site and dorsal ulceration. - Begin wound care by nursing tomorrow. Orders will be placed - Clinically clear margins expected. Source control likely. Pathology pending. - Could likely d/c home prior to definitive results on empiric oral abx, but will defer to primary care/ID. - Will follow. Admission and Anticipated Discharge Date Admission Date: February 20, 2024 Subjective Pt seen in afternoon, POD #2. No new concerns. Feeling well. Does have occasional pain to the foot, though none right now. Has had some passing concern about his bypass incision and "what would happen if it opened." Review of Systems Constitutional: no fever, no chills and no fatigue Eyes: no problem reported Ear, Nose, Mouth, Throat: no problem reported Respiratory: no problem reported Cardiovascular: + edema; no problem reported Gastrointestinal: no nausea, no vomiting and no problem reported Musculoskeletal: no problem reported Integumentary: + skin ulcer, + wounds and + erythema Neurologic: + loss of sensation, + numbness and + pa resthesia; no generalized weakness Psychiatric: no problem reported Physical Exam Physical Exam: Lower extremity focused exam: DP/PT pulses nonpalpable. Sutures are intact to the TMA site without dehiscence or drainage/bleeding. Proximal dorsal ulceration is improved, 90% granular, 10% necrotic. This necrosis is superficial, overlying the EHL tendon sheath. EHL tendon was resected intraoperatively, as it was 100% necrotic for 2cm underlying this ulcer. No deeper extension noted. No current evidence of continued infection. Constitutional: WD/WN, vitals as above + ill appearing and + thin Eyes: PERRL, conjunctivae normal, anicteric sclerae ENMT: external ear and nose normal, oropharynx normal Mouth: + poor dentition Neck: trachea midline, no thyromegaly Respiratory: normal respiratory effort and + respiratory distress Cardiovascular: RRR, no murmur, no edema Vessels: + posterior tibial pulses abnormal and + dorsalis pedis pulses abnormal Extremities: normal capillary refill (With the exception of the right second toe which is gangrenous, absent FOREIGN DIPLOMAT) Chest (Breasts): normal inspection/palpation of breasts Gastrointestinal (Abdomen): Inspection/Auscultation: abdomen normal to inspection; abdomen not distended Percussion/Palpation: no guarding Musculoskeletal: Head/Neck/Chest: normocephalic and head atraumatic Extremities: + limited ROM of extremities, + muscle atrophy and + foot abnormality Skin: + ulcer, + skin tightening, + skin atrop hy, + erythema and + eschar Neurologic: plantar reflexes intact bilaterally and moves all extremities; + abnormal sensation to monofilament Psychiatric: A+Ox3, euthymic affect Results & Data Results & Data Vital Signs (Past 12 Hours) Vital Signs Temp Pulse Pulse Resp BP Pulse Ox O2 Del Method 03/10/24 07:40 36.9 C 64 19 117/65 98 Room Air 03/10/24 07:30 Room Air 03/10/24 07:00 64 03/10/24 04:30 36.5 C 61 16 117/59 L 97 Room Air 03/09/24 23:03 36.4 C L 64 18 132/67 97 Room Air 03/09/24 22:04 80 (1) 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 mellitus group home insulin use: with group home use Qualified Code(s): E11.42 - Type 2 diabetes mellitus with diabetic polyneuropathy; Z79.4 - care home (current) use of insulin (2) Diabetes mellitus with peripheral angiopathy with gangrene Diabetes mellitus type: type 2 Diabetes mellitus manager long term care insulin use: with manager long term care use Qualified Code(s): E11.52 - Type 2 diabetes mellitus with diabetic peripheral angiopathy with gangrene; Z79.4 - care home (current) use of insulin
--- NOTE | 2024-03-10 13:57 | Hospitalist Progress Note ---
Date of Service March 10, 2024 Assessment & Plan (1) Gangrene of right foot: Plan 78-year-old male who recently moved from [place], with PMH of HTN, DM, depression, ongoing tobacco use, heavy alcohol use [no drinking since last 6 months as per patient] who lives alone at home presented to the ED 02/19 with complaint of fall and found to have flu positive. Patient was feeling weak and fatigued. He slid from bed and fell down and he could not get up, he thinks he laid on the floor for 1 to 1 and half days and was finally able to call 911 and was brought in here. 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 hx of diabetic neuropathy with amputation of 5th toe of right foot MRI foot positive for acute osteomyelitis involving second toe proximal phalanx and head/neck of the second metatarsal. Possible septic arthritis involving the second MTP joint. 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 BLE extensive atherosclerotic disease. Podiatry evaled, s/p Right Second Ray Amputation 02/21, weightbearing as tolerated in a surgical shoe, recommended vascular surgery evaluation. Patient underwent left leg angiogram on 03/01 which showed occluded superficial femoral artery at its origin; peroneal is totally occluded. full details in procedure note Patient underwent right femoral to posterior tibial bypass on 03/04 Patient was observed in ICU overnight on 03/04; transferred out on 03/05. Discussion done with podiatry; plan for possible transmetatarsal amputation in next few days along with debridement of wound on the dorsal aspect. Will continue on cefazolin for the time being given the previous wound culture that grew staph and Grp B strep agalactiae PICC line has been placed on 02/26; depending on the cultures from the surgery; antibiotic may need to be adjusted. Hb on 03/05/2024 is 8.4g/dl; down from 11 pre-op; EBL- 500cc, monitor. Transfuse if less than 7. Remove nino Pt/OT 03/06/24- pt due to have surgery with podiatry once more on 03/0703/07/24- pt having R foot transmetatarsal amputation today as well as debridement. Appreciate podiatry recs, follow intraop cultures 03/08/24- post op day #1, per podiatry clean margins, no intraop samples obtained. Continue with IV Cefazolin at this time....followup with ID once more to confirm plan for discharge 03/09/24-POD #2, awaiting pathology, continue with abx, f/u with ID on Monday. Son updated. 03/10/24- POD #3, worked with PT today, stable for discharge to acute rehab Anemia Hgb has slowly downtrended from 14.7 earlier during admission to 8 Anemia panel noting low folate levels Started on folate supplement Continue to monitor hgb post op Generalized weakness Influenza A Patient presented with flulike symptoms, generalized tiredness/fatigue Respiratory viral panel positive for influenza A Chest x-ray does not show infiltrates s/p Tamiflu droplet precautions discontinued on 02/28/2023 PT OT eval Elevated high sensitive troponin of undetermined significance in setting of influenza A high sensitivity elevated with no significant delta difference. Echo with EF. of 60-65%, grade I diastolic dysfunction, Left ventricle wall motion normal. Cardiology evaluated, appreciate recommendation. c/w crestor, OP ischemic w/u. Monitor replete electrolytes. Elevated CPK: resolved. History of hypertension: Continue home metoprolol tartrate and triamterene/hydrochlorothiazide and potassium supplement. Will monitor Depression: On Zoloft Type 2 Diabetes on long-acting insulin 20 units nightly For now will place on insulin sliding scale and monitor a1c 6.4 this admission needs to establish new PCP Diet: DMII/HH Full code dvt prophylaxis : heparin sc started; discussed with vascular. dispo: per pt/ot recs post op- currently recommending rehab Admission and Anticipated Discharge Date Admission Date: February 20, 2024 Subjective pt was seen in the AM Working with PT Denied acute concerns Review of Systems Review of Systems: All systems reviewed & are unremarkable except as noted in Subjective Physical Exam Physical Exam: General: Alert. No acute distress HEENT: NC/AT CV: RRR Resp: Breath sounds clear bilaterally, no increased effort of breathing Abdomen: Soft, nontender Extremities: right foot with noted amputation, covered in JAILENE bandage Results & Data Results & Data Vital Signs (Past 12 Hours) Vital Signs Temp Pulse Pulse Resp BP Pulse Ox O2 Del Method 03/10/24 13:00 67 03/10/24 11:13 36.5 C 85 17 113/59 L 98 Room Air 03/10/24 07:40 36.9 C 64 19 117/65 98 Room Air 03/10/24 07:30 Room Air 03/10/24 07:00 64 03/10/24 04:30 36.5 C 61 16 117/59 L 97 Room Air
[2024-03-11 06:00] LABS: Basophils # (auto) 0.04 K/uL (0.00-0.20); Basophils % (auto) 0.6 %; Eosinophils # (auto) 0.28 K/uL (0.00-0.50); Hematocrit (blood only) 26.7 % (42.0-52.0); Hemoglobin 8.5 g/dl (14.0-18.0); Immature Granulocytes # (auto) 0.16 K/uL (0.01-0.20); Immature Granulocytes % (auto) 2.3 %; Lymphocytes # (auto) 1.02 K/uL (1.20-3.40); Lymphocytes % (auto) 14.6 %; Mean Corpuscular Hemoglobin 28.5 pg (25.0-34.0); Mean Corpuscular Hgb Conc 31.8 g/dL (32.0-36.0); Mean Corpuscular Volume 89.6 fL (80.0-100.0); Monocytes # (auto) 0.59 K/uL (0.11-0.59); Monocytes % (auto) 8.4 %; Neutrophils # (auto) 4.92 K/uL (1.40-6.50); Neutrophils % (auto) 70.1 %; Nucleated RBC # (auto) 0.02 K/uL (0.00-0.12); Nucleated RBC % (auto) 0.3 %; Platelet Count 201 K/uL (130-400); RDW Coefficient of Variation 15.9 % (11.5-14.5); RDW Standard Deviation 47.9 fL (36.4-46.3); Red Blood Count 2.98 M/uL (4.70-6.10); White Blood Count 7.01 K/ul (4.8-10.8)
[2024-03-11 06:17] LABS: Albumin Globulin Ratio 0.7 (0.9-2); Albumin Level 2.9 gm/dl (3.4-5.0); Bilirubin,Total 0.4 mg/dl (0.2-1.0); Calcium 8.5 mg/dl (8.6-10.3); Creatinine Clr Calc Pharmacy 77.2 ml/min; Globulin 3.9 gm/dl (2.5-4.0); Magnesium 1.8 mg/dl (1.7-2.4); Phosphorus 2.9 mg/dl (2.5-4.9); Total Protein 6.8 gm/dl (6.0-8.3)
--- NOTE | 2024-03-11 12:09 | Hospitalist Progress Note ---
Date of Service March 11, 2024 Assessment & Plan (1) Gangrene of right foot: Plan 78-year-old male who recently moved from [place], with PMH of HTN, DM, depression, ongoing tobacco use, heavy alcohol use [no drinking since last 6 months as per patient] who lives alone at home presented to the ED 02/19 with complaint of fall and found to have flu positive. Patient was feeling weak and fatigued. He slid from bed and fell down and he could not get up, he thinks he laid on the floor for 1 to 1 and half days and was finally able to call 911 and was brought in here. 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 hx of diabetic neuropathy with amputation of 5th toe of right foot MRI foot positive for acute osteomyelitis involving second toe proximal phalanx and head/neck of the second metatarsal. Possible septic arthritis involving the second MTP joint. 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 BLE extensive atherosclerotic disease. Podiatry evaled, s/p Right Second Ray Amputation 02/21, weightbearing as tolerated in a surgical shoe, recommended vascular surgery evaluation. Patient underwent left leg angiogram on 03/01 which showed occluded superficial femoral artery at its origin; peroneal is totally occluded. full details in procedure note Patient underwent right femoral to posterior tibial bypass on 03/04 Patient was observed in ICU overnight on 03/04; transferred out on 03/05. Discussion done with podiatry; plan for possible transmetatarsal amputation in next few days along with debridement of wound on the dorsal aspect. Will continue on cefazolin for the time being given the previous wound culture that grew staph and Grp B strep agalactiae PICC line has been placed on 02/26; depending on the cultures from the surgery; antibiotic may need to be adjusted. Hb on 03/05/2024 is 8.4g/dl; down from 11 pre-op; EBL- 500cc, monitor. Transfuse if less than 7. Remove nino Pt/OT 03/06/24- pt due to have surgery with podiatry once more on 03/0703/07/24- pt having R foot transmetatarsal amputation today as well as debridement. Appreciate podiatry recs, follow intraop cultures 03/08/24- post op day #1, per podiatry clean margins, no intraop samples obtained. Continue with IV Cefazolin at this time....followup with ID once more to confirm plan for discharge 03/09/24-POD #2, awaiting pathology, continue with abx, f/u with ID on Monday. Son updated. 03/10/24- POD #3, worked with PT today, stable for discharge to acute rehab 03/11/24- POD #4, stable for discharge Anemia Hgb has slowly downtrended from 14.7 earlier during admission to 8 Anemia panel noting low folate levels Started on folate supplement Continue to monitor hgb post op Generalized weakness Influenza A Patient presented with flulike symptoms, generalized tiredness/fatigue Respiratory viral panel positive for influenza A Chest x-ray does not show infiltrates s/p Tamiflu droplet precautions discontinued on 02/28/2023 PT OT eval Elevated high sensitive troponin of undetermined significance in setting of influenza A high sensitivity elevated with no significant delta difference. Echo with EF. of 60-65%, grade I diastolic dysfunction, Left ventricle wall motion normal. Cardiology evaluated, appreciate recommendation. c/w crestor, OP ischemic w/u. Monitor replete electrolytes. Elevated CPK: resolved. History of hypertension: Continue home metoprolol tartrate and triamterene/hydrochlorothiazide and potassium supplement. Will monitor Depression: On Zoloft Type 2 Diabetes on long-acting insulin 20 units nightly For now will place on insulin sliding scale and monitor a1c 6.4 this admission needs to establish new PCP Diet: DMII/HH Full code dvt prophylaxis : heparin sc started; discussed with vascular. dispo: per pt/ot recs post op- currently recommending rehab Admission and Anticipated Discharge Date Admission Date: February 20, 2024 Subjective pt was seen in the AM Denied acute concerns Review of Systems Review of Systems: All systems reviewed & are unremarkable except as noted in Subjective Physical Exam Physical Exam: General: Alert. No acute distress HEENT: NC/AT CV: RRR Resp: Breath sounds clear bilaterally, no increased effort of breathing Abdomen: Soft, nontender Extremities: right foot with noted amputation, covered in JAILENE bandage Results & Data Results & Data Vital Signs (Past 12 Hours) Vital Signs Temp Pulse Pulse Resp BP Pulse Ox O2 Del Method 03/11/24 11:24 36.8 C 94 H 18 128/72 99 Room Air 03/11/24 07:43 68 03/11/24 07:26 Room Air 03/11/24 07:20 36.9 C 97 H 20 117/61 98 Room Air 03/11/24 03:16 36.4 C L 73 18 107/58 L 94 Room Air
[2024-03-12 07:09] LABS: Basophils # (auto) 0.02 K/uL (0.00-0.20); Basophils % (auto) 0.3 %; Eosinophils # (auto) 0.26 K/uL (0.00-0.50); Eosinophils % (auto) 4.3 %; Immature Granulocytes # (auto) 0.11 K/uL (0.01-0.20); Immature Granulocytes % (auto) 1.8 %; Lymphocytes # (auto) 0.85 K/uL (1.20-3.40); Lymphocytes % (auto) 14.1 %; Mean Corpuscular Hemoglobin 28.8 pg (25.0-34.0); Mean Corpuscular Hgb Conc 32.1 g/dL (32.0-36.0); Mean Corpuscular Volume 89.5 fL (80.0-100.0); Mean Platelet Volume 9.1 fL (9.4-12.4); Monocytes # (auto) 0.51 K/uL (0.11-0.59); Monocytes % (auto) 8.5 %; Neutrophils # (auto) 4.26 K/uL (1.40-6.50); Nucleated RBC # (auto) 0.04 K/uL (0.00-0.12); Nucleated RBC % (auto) 0.7 %; Platelet Count 189 K/uL (130-400); RDW Coefficient of Variation 16.9 % (11.5-14.5); RDW Standard Deviation 51.1 fL (36.4-46.3); Red Blood Count 3.13 M/uL (4.70-6.10); White Blood Count 6.01 K/ul (4.8-10.8)
[2024-03-12 07:24] LABS: Albumin Globulin Ratio 0.8 (0.9-2); BUN Creatinine Ratio 28.4 (10-20); Bilirubin,Total 0.3 mg/dl (0.2-1.0); Calcium 8.8 mg/dl (8.6-10.3); Creatinine Clr Calc Pharmacy 76.3 ml/min; Globulin 3.9 gm/dl (2.5-4.0); Magnesium 1.9 mg/dl (1.7-2.4); Phosphorus 2.5 mg/dl (2.5-4.9); Potassium 4.2 mmol/L (3.5-5.1); Total Protein 6.9 gm/dl (6.0-8.3)
--- NOTE | 2024-03-12 12:18 | Hospitalist Progress Note ---
Date of Service March 12, 2024 Assessment & Plan (1) Gangrene of right foot: Plan 78-year-old male who recently moved from [place], with PMH of HTN, DM, depression, ongoing tobacco use, heavy alcohol use [no drinking since last 6 months as per patient] who lives alone at home presented to the ED 02/19 with complaint of fall and found to have flu positive. Patient was feeling weak and fatigued. He slid from bed and fell down and he could not get up, he thinks he laid on the floor for 1 to 1 and half days and was finally able to call 911 and was brought in here. 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 hx of diabetic neuropathy with amputation of 5th toe of right foot MRI foot positive for acute osteomyelitis involving second toe proximal phalanx and head/neck of the second metatarsal. Possible septic arthritis involving the second MTP joint. 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 BLE extensive atherosclerotic disease. Podiatry evaled, s/p Right Second Ray Amputation 02/21, weightbearing as tolerated in a surgical shoe, recommended vascular surgery evaluation. Patient underwent left leg angiogram on 03/01 which showed occluded superficial femoral artery at its origin; peroneal is totally occluded. full details in procedure note Patient underwent right femoral to posterior tibial bypass on 03/[address] Snow. Has followup appt scheduled after discharge. Patient was observed in ICU overnight on 03/04; transferred out on 03/05. Discussion done with podiatry; plan for possible transmetatarsal amputation in next few days along with debridement of wound on the dorsal aspect. Will continue on cefazolin for the time being given the previous wound culture that grew staph and Grp B strep agalactiae PICC line has been placed on 02/26; depending on the cultures from the surgery; antibiotic may need to be adjusted. Hb on 03/05/2024 is 8.4g/dl; down from 11 pre-op; EBL- 500cc, monitor. Transfuse if less than 7. Remove nino Pt/OT 03/06/24- pt due to have surgery with podiatry once more on 03/0703/07/24- pt having R foot transmetatarsal amputation today as well as debridement. Appreciate podiatry recs, follow intraop cultures 03/08/24- post op day #1, per podiatry clean margins, no intraop samples obtained. Continue with IV Cefazolin at this time....followup with ID once more to confirm plan for discharge 03/09/24-POD #2, awaiting pathology, continue with abx, f/u with ID on Monday. Son updated. 03/10/24- POD #3, worked with PT today, stable for discharge to acute rehab 03/11/24- POD #4, stable for discharge 03/12/24- POD #5. Margins are clear on pathology, case discussed via tigertext with Dr Oakes who recommended discontinuation of IV antibiotics and continuing with a 10 day course of po abx. Pt transitioned to po Keflex with a probiotic. Anticipating discharge to [facility] tomorrow per case management. Has follow up scheduled with Vascular surgery on Mon03/15/24 as an outpt. Anemia Hgb has slowly downtrended from 14.7 earlier during admission to 8 Anemia panel noting low folate levels Started on folate supplement Continue to monitor hgb post op Generalized weakness Influenza A Patient presented with flulike symptoms, generalized tiredness/fatigue Respiratory viral panel positive for influenza A Chest x-ray does not show infiltrates s/p Tamiflu droplet precautions discontinued on 02/28/2023 PT OT eval Elevated high sensitive troponin of undetermined significance in setting of influenza A high sensitivity elevated with no significant delta difference. Echo with EF. of 60-65%, grade I diastolic dysfunction, Left ventricle wall motion normal. Cardiology evaluated, appreciate recommendation. c/w crestor, OP ischemic w/u. Monitor and replete electrolytes. Elevated CPK: resolved. History of hypertension: Continue home metoprolol tartrate and triamterene/hydrochlorothiazide and potassium supplement. Will monitor Depression: On Zoloft Type 2 Diabetes on long-acting insulin 20 units nightly For now will place on insulin sliding scale and monitor a1c 6.4 this admission needs to establish new PCP Diet: DMII/HH Full code dvt prophylaxis : heparin sc started; discussed with vascular. dispo: per pt/ot recs post op- currently recommending rehab Admission and Anticipated Discharge Date Admission Date: February 20, 2024 Subjective pt was seen in the AM Denied acute concerns Case discussed with podiatry- 10 days of po abx on discharge Review of Systems Review of Systems: All systems reviewed & are unremarkable except as noted in Subjective Physical Exam Physical Exam: General: Alert. No acute distress HEENT: NC/AT CV: RRR Resp: Breath sounds clear bilaterally, no increased effort of breathing Abdomen: Soft, nontender Extremities: right foot with noted amputation, covered in JAILENE bandage, geovany on R leg Results & Data Results & Data Vital Signs (Past 12 Hours) Vital Signs Temp Pulse Resp BP Pulse Ox O2 Del Method 03/12/24 11:11 36.5 C 65 18 126/65 97 Room Air 03/12/24 07:34 36.7 C 71 18 131/64 92 Room Air 03/12/24 07:25 Room Air 03/12/24 03:06 36.6 C 82 16 117/60 93 Room Air Diagnostic Findings Chest X-Ray 02/20/24 02:02 EXAM: XR chest 1V portable CLINICAL HISTORY: SEPSIS JMF TECHNIQUE: An X-ray image of the chest is obtained in AP projection. COMPARISON: No prior studies are available for comparison. FINDINGS: Pulmonary Parenchyma: Lungs show prominent perihilar bronchovascular markings with peribronchial cuffing. No evidence of consolidation, collapse, or focal opacities. No pulmonary nodules are identified. No evidence of pleural effusion or pleural thickening. Heart and Mediastinum: Heart size and shape are normal. No mediastinal widening or masses. No hilar or mediastinal lymphadenopathy. Bony Thorax: Bony thorax appears intact without fractures or deformities. Soft Tissues: Soft tissues overlying the chest wall are unremarkable. IMPRESSION: Bilateral perihilar prominent bronchovascular markings with peribronchial cuffing are non-specific findings; clinical correlation is advised. Electronically signed by Isaac Farrell 02-20-2024 03:[address] 02/20/24 02:06 EXAM: CT head/brain wo con CLINICAL HISTORY: Weakness, slid out of bed onto the floor, and laid on the floor for two days, pt states he did not hit his head. TECHNIQUE: An axial non-contrast CT scan of the brain was performed from the skull base to the high parietal region. One of the following dose reduction techniques was utilized for this exam: Automated exposure control, adjustment of the mA and/or kV according to patient size, and use of iterative reconstruction. DLP: 1674 mGy-cm, CTDI 103.2 mGy. COMPARISON: None. FINDINGS: Brain Parenchyma: There are a few tiny ill-defined [id number] areas noted in the subcortical and deep white matter bilaterally, suggestive of microvascular ischemic changes. Normal attenuation of the cerebral hemispheres, cerebellum, and brainstem. No evidence of acute infarct, hemorrhage, or mass effect. Ventricular System: The ventricular system, cortical sulci, and basal cisterns are prominent and consistent with senile changes. No evidence of subarachnoid hemorrhage or extra-axial fluid collections. Cerebellum and Brainstem: Normal size and signal. No masses, lesions, or areas of abnormal signal. Orbits: Normal appearance of the globes, optic nerves, and extraocular muscles. No evidence of orbital masses. Sinuses: Mild mucosal thickening in the frontal and ethmoid sinuses. Right maxillary mucosal sinus cysts. Patchy opacification of the mastoid air cells. Skull: No evidence of definite acute fracture. Additional: A fluid collection is seen along the lateral aspect of the right masseter muscle, measuring 46 x 8 mm in the right car rider space continuing posteriorly with the parotid space. Mild surrounding fat stranding is also seen. Imaging appearances are suggestive of an ongoing infective/inflammatory process. IMPRESSION: 1. No evidence of any acute intracranial event. 2. Age-related involutional and microvascular ischemic changes. 3. Soft tissue thickening with stranding and mild fluid are seen in the right masseter and right parotid space. Need clinical correlation and correlate with impact of trauma. 4. Further evaluation with a contrast-enhanced MRI brain can be considered if clinically indicated. 5. 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 Diabetic neuropathy Technique: Multiple T1 and T2-weighted magnetic resonance images were obtained of the right foot before and after the administration of 5.5 cc of Gadavist intravenous gadolinium contrast Findings: There has been amputation of the first digit at the level of the metatarsal base. There has been resection of the head, neck, and mid and distal shaft of the fifth metatarsal, with the fifth toe phalanges remaining There is bone marrow edema with enhancement involving the head and neck of the second metatarsal and there is bone marrow edema throughout the second toe proximal phalanx. This could be due to osteomyelitis. There is mild surrounding soft tissue edema and fluid. There is less severe bone marrow edema within the base and shaft of the second metatarsal. There is a suspected displaced and angulated fracture of the head of the second toe proximal phalanx. There is no subluxation or dislocation. No significant arthritic changes are seen. No focal osseous lesion is evident. No definite ligament tear is seen. The visualized tendons appear intact without tendinopathy, tenosynovitis or tear. There is mild edema of the foot musculature. There is a joint effusion involving the second metatarsophalangeal joint Impression: 1. Fracture of the head of the second toe proximal phalanx 2. Possible acute osteomyelitis involving the second toe proximal phalanx and the head and neck of the second metatarsal 3. Possible septic arthritis involving the second MTP joint 4. Prior great toe amputation and partial resection of the fifth metatarsal Electronically signed by Tevin Mtz 02-20-2024 6:36 PM Duplex Scan Lower Extremity Artery 02/23/24 12:37 BILATERAL LOWER EXTREMITY ARTERIAL DOPPLER ULTRASOUND CLINICAL HISTORY: Ischemia of limbs COMPARISON STUDY: No previous studies for comparison. TECHNIQUE: Color and duplex Doppler sonography of the arterial systems of both lower extremities was performed. Due to pain, ankle to brachial indices could not be obtained. FINDINGS: There is extensive atherosclerotic plaque within both lower extremities. There is biphasic flow within the right common femoral artery. Extensive thrombus within the right superficial femoral artery is noted. This vessel is largely occluded. There is trace flow within portions of the right superficial femoral artery. There is markedly dampened, monophasic flow within the right popliteal, posterior tibial, peroneal and anterior tibial arteries. The right dorsalis pedis is occluded. Biphasic flow within left common femoral, superficial femoral and popliteal arteries is noted. There are no elevated velocities. There is dampened, monophasic flow within the left calf vessels with reversal flow within portions of the left anterior tibial artery. IMPRESSION: 1. Extensive atherosclerotic plaque within the bilateral lower extremities. 2. 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 Findings will be called/faxed to the ordering provider at time of dictation. 3. Significantly diminished monophasic flow within the lateral calf vessels, right more severe than left. ACT 112: Negative or not required by law. Electronically signed by: Bigg Ha M.D. 02/23/2024 3:23 PM Extremity Venous Study 03/01/24 10:24 US venous mapping LE RT CLINICAL HISTORY: gangrene right foot TECHNIQUE: Real-time grayscale sonographic images of the veins of the right lower extremity were obtained. Comparison: None available at the time of this dictation. FINDINGS/IMPRESSION: Greater and lesser saphenous veins are compressible throughout with thickened rosales of the lesser saphenous vein. Measurements are as follows: Right greater saphenous vein Groin: 5 mm in diameter, 15 mm from the skin Proximal: 3.8 mm in diameter, 9 mm from the skin Mid: 3.8 mm in diameter, 5 mm and the skin Distal: 3.4 mm in diameter, 5 mm from the skin Knee: 3.6 mm in diameter, 6 mm from the skin Proximal calf: 3.9 mm in diameter, 3 mm from the skin Proximal branch: 2.4 mm in diameter, 2 mm from the skin Mid: 2.9 mm in diameter, 3 mm from the skin Distal: 3.2 mm in diameter, 2.6 mm from the skin Ankle: 3.4 mm in diameter, 2 mm of the skin Right lesser saphenous vein Knee: 3.3 mm in diameter , 9 mm from the skin Proximal calf: 0.5 mm in diameter, 4 mm from the skin Mid calf: 1 mm in diameter, 0.3 mm from the skin Distal calf: 1.5 mm in diameter, 0.3 mm from the skin. ACT 112: Negative or not required by law. Electronically signed by: Cedric Hussein M.D. 03/01/2024 2:54 PM
[2024-03-12] MEDS: cephALEXin 500 MG CAP PO SCH (19:17)
[2024-03-13 07:22] VITALS: RESP 16; O2SAT 97
[2024-03-13 07:43] LABS: Basophils # (auto) 0.04 K/uL (0.00-0.20); Basophils % (auto) 0.6 %; Eosinophils % (auto) 4.4 %; Hematocrit (blood only) 29.9 % (42.0-52.0); Hemoglobin 9.6 g/dl (14.0-18.0); Immature Granulocytes # (auto) 0.11 K/uL (0.01-0.20); Immature Granulocytes % (auto) 1.6 %; Lymphocytes # (auto) 1.04 K/uL (1.20-3.40); Lymphocytes % (auto) 15.2 %; Mean Corpuscular Hemoglobin 29.1 pg (25.0-34.0); Mean Corpuscular Hgb Conc 32.1 g/dL (32.0-36.0); Mean Corpuscular Volume 90.6 fL (80.0-100.0); Monocytes # (auto) 0.59 K/uL (0.11-0.59); Monocytes % (auto) 8.6 %; Neutrophils # (auto) 4.76 K/uL (1.40-6.50); Neutrophils % (auto) 69.6 %; Nucleated RBC # (auto) 0.02 K/uL (0.00-0.12); Nucleated RBC % (auto) 0.3 %; Platelet Count 197 K/uL (130-400); RDW Coefficient of Variation 17.3 % (11.5-14.5); RDW Standard Deviation 53.8 fL (36.4-46.3); White Blood Count 6.84 K/ul (4.8-10.8)
[2024-03-13 08:07] LABS: Albumin Globulin Ratio 0.7 (0.9-2); Albumin Level 3.2 gm/dl (3.4-5.0); BUN Creatinine Ratio 24.7 (10-20); Bilirubin,Total 0.4 mg/dl (0.2-1.0); Creatinine Clr Calc Pharmacy 79.7 ml/min; Globulin 4.4 gm/dl (2.5-4.0); Magnesium 2.1 mg/dl (1.7-2.4); Phosphorus 2.6 mg/dl (2.5-4.9); Potassium 4.1 mmol/L (3.5-5.1); Total Protein 7.6 gm/dl (6.0-8.3)
[2024-03-13 11:26] VITALS: BP 118/69; PULSE 79; TEMP 98.4
--- NOTE | 2024-03-13 19:19 | Discharge Summary ---
Discharge Summary Date of Service March 13, 2024 Principal Dx & Hospital Course #1 = Principal Diagnosis (1) Gangrene of right foot: Plan 78-year-old male who recently moved from [place], with PMH of HTN, DM, depr ession, ongoing tobacco use, heavy alcohol use [no drinking since last 6 months as per patient] who lives alone at home presented to the ED 02/19 with complaint of fall and found to have flu positive. Patient was feeling weak and fatigued. He slid from bed and fell down and he could not get up, he thinks he laid on the floor for 1 to 1 and half days and was finally able to call 911 and was brought in here. 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 hx of diabetic neuropathy with amputation of 5th toe of right foot MRI foot positive for acute osteomyelitis involving second toe proximal phalanx and head/neck of the second metatarsal. Possible septic arthritis involving the second MTP joint. 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 BLE extensive atherosclerotic disease. Podiatry bernadette, s/p Right Second Ray Amputation 02/21, weightbearing as tolerated in a surgical shoe, recommended vascular surgery evaluation. Patient underwent left leg angiogram on 03/01 which showed occluded superficial femoral artery at its origin; peroneal is totally occluded. full details in procedure note Patient underwent right femoral to posterior tibial bypass on 03/[address] Snow. Has followup appt scheduled after discharge. Patient was observed in ICU overnight on 03/04; transferred out on 03/05. Discussion done with podiatry; plan for possible transmetatarsal amputation in next few days along with debridement of wound on the dorsal aspect. Will continue on cefazolin for the time being given the previous wound culture that grew staph and Grp B strep agalactiae PICC line has been placed on 02/26; depending on the cultures from the surgery; antibiotic may need to be adjusted. Hb on 03/05/2024 is 8.4g/dl; down from 11 pre-op; EBL- 500cc, monitor. Transfuse if less than 7. Remove nino Pt/OT 03/06/24- pt due to have surgery with podiatry once more on 03/0703/07/24- pt having R foot transmetatarsal amputation today as well as debridement. Appreciate podiatry recs, follow intraop cultures 03/08/24- post op day #1, per podiatry clean margins, no intraop samples obtained. Continue with IV Cefazolin at this time....followup with ID once more to confirm plan for discharge 03/09/24-POD #2, awaiting pathology, continue with abx, f/u with ID on Monday. Son updated. 03/10/24- POD #3, worked with PT today, stable for discharge to acute rehab 03/11/24- POD #4, stable for discharge 03/12/24- POD #5. Margins are clear on pathology, case discussed via tigertext with Dr Oakes. Discharge to [facility] per case management. Has follow up scheduled with Vascular surgery on Mon03/15/24 as an outpt. Anemia Hgb has slowly downtrended from 14.7 earlier during admission to 8 Anemia panel noting low folate levels Started on folate supplement Continue to monitor hgb post op Generalized weakness Influenza A Patient presented with flulike symptoms, generalized tiredness/fatigue Respiratory viral panel positive for influenza A Chest x-ray does not show infiltrates s/p Tamiflu droplet precautions discontinued on 02/28/2023 PT OT eval Elevated high sensitive troponin of undetermined significance in setting of influenza A high sensitivity elevated with no significant delta difference. Echo with EF. of 60-65%, grade I diastolic dysfunction, Left ventricle wall motion normal. Cardiology evaluated, appreciate recommendation. c/w crestor, OP ischemic w/u. Monitor and replete electrolytes. Elevated CPK: resolved. History of hypertension: Continue home metoprolol tartrate and triamterene/hydrochlorothiazide and potassium supplement. Will monitor Depression: On Zoloft Type 2 Diabetes on long-acting insulin 20 units nightly For now will place on insulin sliding scale and monitor a1c 6.4 this admission needs to establish new PCP Notes For Next Care Provider 78-year-old male who recently moved from [place], with PMH of HTN, DM, depression, ongoing tobacco use, heavy alcohol use [no drinking since last 6 months as per patient] who lives alone at home presented to the ED 02/19 with c omplaint of fall and found to have flu positive. Patient was feeling weak and fatigued. He slid from bed and fell down and he could not get up, he thinks he laid on the floor for 1 to 1 and half days and was finally able to call 911 and was brought in here. Course complicated by amputation of gangreous digits and femoropopliteal bypass, which patient tolerated well. Course complicated by blood loss anemia and influenza, along with generalized weakness. Patient requires physical therapy at discharge. Patient is medically stable for discharge at this time Medication Changes From Visit -keflex Admission HPI Per Admitting Provider Patient is a 78yo male who had a resp infection resulting in weakness. He was found on the floor at home after 1 1/2 days. He was found to also have a gangrene of his right great toe. He did have an amputation of his right great toe. He does claim that his legs do cause pain when walking although he does not walk fast or far enough. He denies rest pain. Discharge Exam Gen: A&O 3 NAD HEENT: NCAT, EOMI, not icteric. External ears normal. No rhinorrhea. Moist mucous membranes. Neck: Supple, full range of motion, no observable masses, No meningeal sign. Lungs: No Respiratory distress. CV: RRR, no edema. Abdomen: Soft, nondistended, No rebound tenderness. MSK: No joint swelling, no redness. Right foot in wraps Skin: No rashes, petechiae, lesions. Normal color per patient. Neuro: Normal Gait, Grossly intact. Psych: Appropriate for situation. Updated Medication List Medication Instructions Recorded Confirmed Type insulin glargine 100 unit/mL (3 20 unit subcut UD 02/20/24 02/20/24 History mL) subcutaneous pen (Basaglar KwikPen U-100 Insulin) metoprolol tartrate 100 mg tablet 100 mg PO BID 02/20/24 02/20/24 History potassium chloride 20 mEq 20 meq PO BID 02/20/24 02/20/24 History tablet,extended release(part/cryst) sertraline 50 mg tablet 50 mg PO BID 02/20/24 02/20/24 History thiamine HCl (vitamin B1) 100 mg 100 mg PO DAILY 02/20/24 02/20/24 History tablet triamterene 75 1 tab PO DAILY 02/20/24 02/20/24 History mg-hydrochlorothiazide 50 mg tablet L.acidop,casei,lactis,rham-B.lact,vish 1 cap PO DAILY #30 caps 03/13/24 Rx 625 mg (10 billion cell) capsule (Advanced Probiotic) acetaminophen 325 mg tablet 650 mg (2 x 325 mg) PO Q4H PRN 03/13/24 Rx pain #30 tabs aspirin 81 mg tablet,delayed 81 mg PO QAM #30 tabs 03/13/24 Rx release cephalexin 500 mg capsule 500 mg PO QID 7 days #28 caps 03/13/24 Rx folic acid 1 mg tablet 1 mg PO QAM 30 days #30 tabs 03/13/24 Rx oxycodone 5 mg tablet 5 mg PO Q6 PRN pain 5 days #20 tabs 03/13/24 Rx rosuvastatin 10 mg tablet 10 mg PO QAM 30 days #30 tabs 03/13/24 Rx Hospital Stay Data Consultations 02/20/24 05:17 ED Decision to Admit Stat 02/20/24 10:33 Consult Cardiology Routine 02/20/24 15:24 Consult Podiatry Routine 02/22/24 17:21 Consult Infectious Diseases Routine 02/23/24 16:07 Consult Vascular Surgery Routine 03/04/24 13:44 Consult Flare Stitcher Routine Procedures Performed Operation Date: 03/07/24 12:45 Actual Procedures p Right Foot Transmetatarsal Amputation, right ankle would excisional debridement(Right) - Donato Oakes DPM Diagnostic Imagining Performed 02/20/24 02:06 CT head/brain wo con Stat 02/20/24 15:24 MRI Foot [MR foot RT wo/w con] Urgent 02/23/24 12:37 US doppler leg [US arterial duplex LE BI] Stat 03/01/24 07:15 EV angio LE RT Routine 03/01/24 07:16 US EV guide vascular access Routine 03/01/24 10:24 US venous mapping LE RT Routine 03/04/24 07:21 EV angio LE RT Routine Pending Results Patient Have Any Pending Studies at Discharge: No Discharge Instructions Given to Patient (Per Discharging Provider) 1. Please finish course of oral antibiotics 2. Please follow up with podiatry, vascular surgery, and PCP. Total Time Total Time Spent Total Time Spent (In Minutes): I spent a total of 35 minutes in direct patient care, including [id number] time with the patient and/or family, reviewing medical records, ordering and reviewing diagnostic tests, and coordinating care with other healthcare providers. This time includes: history taking, physical examination, medical decision making, counseling, ECG interpretation, imaging interpretation, lab interpretation, orders, and education, excluding time spent in the performance of separately billed services.
--- NOTE | 2024-03-14 15:31 | Operative Report ---
Post Operative Report Pre & Post Diagnosis Operation Date: 02/22/24 Pre-Op Diagnosis: Type 2 diabetes mellitus with diabetic polyneuropathy, Diabetes mellitus with peripheral angiopathy with gangrene, Cellulitis of right leg, Gangrene of right foot, Acute osteomyelitis of right foot Post-Op Diagnosis: Type 2 diabetes mellitus with diabetic polyneuropathy, Diabetes mellitus with peripheral angiopathy with gangrene, Cellulitis of right leg, Gangrene of right foot, Acute osteomyelitis of right foot I identified the patient and participated in the time-out.: Yes Procedure Operation Date: 03/07/24 12:45 Actual Procedures p Right Foot Second ray resection - Donato Oakes DPM Surgeon Donato Oakes DPM Scallop Binder None Estimated Blood Loss 30 Findings Consistent with Post-Op Diagnosis Specimens Fly Rail Operator samples of the right second toe and metatarsal were sent for culture and pathology testing. Anesthesia Type MAC Complications none Disposition Accompanied Patient To Recovery: Yes Disposition: Recovery Room Indications This patient is a recent hospital consult presented to the hospital with necrotic second toe. Localized cellulitis and infection from this toe which was noted to be nonviable at admission. We discussed that treatment would be IV or IM resection of the toe metatarsal or a transmetatarsal amputation definitively. Wanting to preserve the bulk of his foot, he elected for a second ray resection. Preoperative instructions, postoperative instructions, relative risks, and outcomes were all discussed at length. Consent was obtained for this procedure. Description of Procedure The patient was brought to the operating room placed on the operating table in the supine position. Titration of sedation, local analgesia was obtained utilizing 20 cc of half percent Marcaine plain. The lower extremity was scrubbed, prepped, and draped in the usual aseptic manner. No tourniquet was utilized during the duration of the procedure due to his vascular status. Attention was directed to the right second toe which was diffusely necrotic where 2 converging semielliptical incisions were made circumferentially around the digit, extending medially along the metatarsal. The first digit was previously amputated so this was essentially along the medial forefoot. The incision was carried down to the level of the metatarsal utilizing sharp dissection techniques. The metatarsal was transected at the level of the surgical neck, proximal to any retained clinical evidence of infection or necrosis. The rate was reflected all soft tissue attachments at this level of the transection and passed off the back table in 1 specimen. Fly Rail Operator samples were obtained and sent for further culture and pathology testing. The surgical site was flushed with copious months of sterile saline and closure was performed with 2-0 nylon in the retention stitch fashion. Due to this level of soft tissue deficit, the stitches may not heal and may require long-term care, though healing may be noted with time. The surgical site was dressed with Xeroform gauze, 4 x 4 gauze, Kerlix, and an Fabian wrap. The patient tolerated the procedure well and was transferred to the recovery room with vital signs stable and vascular status intact to the feet. Following postoperative monitoring, the patient will be transferred back to the floor for further evaluation and testing. I attest to the content of the Intraoperative Record and any orders documented therein. Any exceptions are noted below.
--- NOTE | 2024-03-14 15:41 | Operative Report ---
Post Operative Report Pre & Post Diagnosis Operation Date: 03/07/24 12:45 Pre-Op Diagnosis: Type 2 diabetes mellitus with diabetic polyneuropathy, Diabetes mellitus with peripheral angiopathy with gangrene, Cellulitis of right leg, Gangrene of right foot, Acute osteomyelitis of right foot Post-Op Diagnosis: Type 2 diabetes mellitus with diabetic polyneuropathy, Diabetes mellitus with peripheral angiopathy with gangrene, Cellulitis of right leg, Gangrene of right foot, Acute osteomyelitis of right foot I identified the patient and participated in the time-out.: Yes Procedure Operation Date: 03/07/24 12:45 Actual Procedures p Right Foot Transmetatarsal Amputation, right ankle would excisional debridement(Right) - Donato Oakes DPM Surgeon Donato Oakes DPM Pile Driver Operator Barge Mounted None Estimated Blood Loss 30 Findings Consistent with Post-Op Diagnosis Third toe is diffusely necrotic, developing after the second ray resection. All necrotic nonviable tissue was able to be resected procedure. No proximal extent of infection is suspected. Specimens Right forefoot sent for pathology and culture testing. Anesthesia Type MAC Complications none Disposition Accompanied Patient To Recovery: Yes Disposition: Recovery Room Indications This patient has been a recent hospital consult of ours who recently performed a second ray resection on. After the second ray resection, he has had revascularization. No has not noticed tissue deficit to the third toe. We did again discuss that the more definitive option moving forward is via transmetatarsal amputation. He is amenable to this at this time to try and prevent future complications and concerns. Preoperative instructions, postoperative instructions, relative risks, and outcomes were all discussed at length. Consent was obtained for this procedure. We did discuss the prognosis still remains guarded given his vascular state being tenuous, but with the recent revascularization, there is some hope that he can heal this procedure where he recently failed his last one. Description of Procedure The patient was brought to the operating room placed on the operating table in the supine position. Following ministration of IV sedation, local analgesia was obtained utilizing 20 cc of half percent Marcaine plain. No tourniquet was utilized during the duration of this case given his recent bypass grafting. The right lower extremity was scrubbed, prepped, and draped in the usual aseptic manner. Attention was directed to the right forefoot where 2 converging semielliptical incisions were made circumferentially around the forefoot in a [place] manner. The incisions were made to the the level of the metatarsals, which were in the third, fourth, and fifth metatarsals. Once visualized, the metatarsals were transected level of the surgical neck in an attempt to maintain the forefoot parabola. This was performed with a sagittal saw. The remainder soft tissue was reflected utilizing a 15 blade and the forefoot was passed off the back table in this manner, and 1 specimen. Pick Up And Delivery Driver samples from this were sent for further pathology testing. The incision was then flushed with copious amounts of sterile saline. And closure was performed utilizing 2-0 nylon in an alternating horizontal mattress and retention stitch fashion. The incision was then dressed with Xeroform gauze, 4 x 4 gauze, Kerlix, and an Fabian wrap. The Fabian was only loosely applied to protect the underlying dressing rather than to provide significant compression. The patient tolerated the procedure well and was transferred to the recovery room stable and vascular status intact to the feet. Following postoperative monitoring, he will be transferred back to the floor for further monitoring and likely discharge in the next 2 days. I attest to the content of the Intraoperative Record and any orders documented therein. Any exceptions are noted below.
== END 2024-03-13 13:17 | DRG 240 ==
LOC: ED 01:49 → SUATTDRO 07:17 → EDINP 07:17 → 2N 10:34 → 1E 03-04 13:38 → 2W 03-05 18:23

== ENCOUNTER 2024-07-26 16:53 | Inpatient (IN) ==
--- NOTE | 2024-07-26 17:42 | Emergency Department Note ---
History of Present Illness General Chief complaint: Infection Stated complaint: ULCER ON FOOT, INFECTION, HIGH TEMP, DIABETIC Time Seen by Provider: 07/26/24 17:11 History of Present Illness Provider complaint: Foot infection Maximum Pain Intensity: 1 79-year-old male presents emergency department for right foot infection. Patient has a history of amputation partially of the right foot. He was seen by his surgeon today who thought that his foot looked red and the patient was febrile so they were referred to the emergency department. Son at bedside reports that the swelling redness and pain has been present for the last 2 to 3 days. No cough. No nausea vomiting diarrhea abdominal pain chest pain or difficulty breathing. Patient reports no drainage from his foot. Home Medications Medication Instructions Recorded Confirmed Type acetaminophen 325 mg tablet 650 mg (2 x 325 mg) PO Q4H PRN 03/13/24 07/26/24 Rx pain #30 tabs bismuth tribrom-petrolatum,wh 4" X #100 ea 04/18/24 04/18/24 Rx 4" bandage (Xeroform Petrolatum Dressing) tamsulosin 0.4 mg capsule (Flomax) 0.4 mg PO HS #90 caps 04/18/24 07/26/24 Rx blood-glucose sensor (Dexcom G7 #3 ea 04/30/24 Rx Sensor device) blood-glucose,computer education professor,cont #1 ea 04/30/24 Rx (Dexcom G7 Cone Examiner) thiamine HCl (vitamin B1) 100 mg 100 mg PO BID 05/07/24 07/26/24 History tablet metoprolol tartrate 100 mg tablet 100 mg PO BID #180 tabs 05/14/24 07/26/24 Rx potassium chloride 20 mEq 20 meq PO BID #180 tabs 05/14/24 07/26/24 Rx tablet,extended release(part/cryst) sertraline 50 mg tablet 50 mg PO BID #180 tabs 05/14/24 07/26/24 Rx triamterene 75 1 tab PO DAILY #90 tabs 05/14/24 07/26/24 Rx mg-hydrochlorothiazide 50 mg tablet insulin glargine-yfgn 100 unit/mL 20 unit (0.2 mL) subcut QAM #15 mL 06/21/24 07/26/24 Rx (3 mL) subcutaneous pen (Semglee (insulin glargine-yfgn) Pen) Allergies Allergy/AdvReac Type Severity Reaction Status Date / Time No Known Allergies Allergy Verified 07/26/24 19:07 Past Med/Surg History Problem List (Updated 07/26/24 @ 20:32 by Parvez Duong MD) Acute UTI (Acute) Cellulitis (Acute) Open wound of right foot with complication (Chronic) BPH (benign prostatic hyperplasia) (Chronic) Depression (Chronic) Hyperlipidemia (Chronic) Benign essential hypertension (Chronic) 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) Medical History Acute osteomyelitis of right foot Paroxysmal SVT (supraventricular tachycardia) 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 Prolonged QT interval Surgical History S/P femoral-tibial bypass S/P vascular surgery Social History Smoking Status: Current every day smoker Tobacco Type: Cigarettes Age Started Using Tobacco: 19; Age Quit Using Tobacco: 78; packs per day: 1; Do You Dip or Chew Tobacco: No; Hx Alcohol Use: No Hx Substance Use: No Preferred Language: Palauan Communication Ability: Effective Termite Control Representative Required: No Beliefs That Will Affect Care: None Current Living Situation: Alone Feels Safe at Home: Yes Assistive Devices: Cane Physical Exam Vital Signs Vital Signs - 24 hr 07/26/24 16:57 07/26/24 17:30 07/26/24 17:33 Temperature 38.0 C H 38.3 C H Temperature Source Oral Oral Pulse Rate 104 H Pulse Rate [Apical] 95 H Pulse Rate from SpO2 Sensor Pulse Rhythm Regular Pulse Strength Normal Respiratory Rate 18 20 Respiratory Effort / Characteristics Non-Labored Spontaneous Non-Labored Spontaneous Respiratory Depth Normal Normal Respiratory Pattern Regular Blood Pressure 115/61 142/76 H Blood Pressure [Right Arm] 142/76 H Blood Pressure Mean 79 95 Blood Pressure Mean [Right Arm] 98 Blood Pressure Position [Right Arm] Semi-fowlers Pulse Oximetry 98 98 Oxygen Delivery Method Room Air Room Air Sepsis Recent Fever Within 48 Hours Yes Sepsis New/Unexplained Change in Mental Status No Sepsis Action Taken by Nursing No Action Required 07/26/24 17:36 07/26/24 17:40 07/26/24 17:40 Temperature Temperature Source Pulse Rate 95 H 90 Pulse Rate [Apical] Pulse Rate from SpO2 Sensor 95 H Pulse Rhythm Pulse Strength Respiratory Rate 20 20 Respiratory Effort / Characteristics Respiratory Depth Respiratory Pattern Blood Pressure Blood Pressure [Right Arm] Blood Pressure Mean Blood Pressure Mean [Right Arm] Blood Pressure Position [Right Arm] Pulse Oximetry 98 98 98 Oxygen Delivery Method Room Air Room Air Sepsis Recent Fever Within 48 Hours Sepsis New/Unexplained Change in Mental Status Sepsis Action Taken by Nursing 07/26/24 17:42 07/26/24 17:45 07/26/24 17:48 Temperature Temperature Source Pulse Rate 91 H 88 Pulse Rate [Apical] Pulse Rate from SpO2 Sensor 92 H 88 Pulse Rhythm Pulse Strength Respiratory Rate 18 19 Respiratory Effort / Characteristics Respiratory Depth Respiratory Pattern Blood Pressure 135/81 Blood Pressure [Right Arm] Blood Pressure Mean 83 Blood Pressure Mean [Right Arm] Blood Pressure Position [Right Arm] Pulse Oximetry 99 98 Oxygen Delivery Method Sepsis Recent Fever Within 48 Hours Sepsis New/Unexplained Change in Mental Status Sepsis Action Taken by Nursing 07/26/24 17:52 07/26/24 18:00 07/26/24 18:00 Temperature Temperature Source Pulse Rate 88 87 Pulse Rate [Apical] Pulse Rate from SpO2 Sensor 88 Pulse Rhythm Pulse Strength Respiratory Rate 20 Respiratory Effort / Characteristics Respiratory Depth Respiratory Pattern Blood Pressure 147/74 H Blood Pressure [Right Arm] Blood Pressure Mean 88 Blood Pressure Mean [Right Arm] Blood Pressure Position [Right Arm] Pulse Oximetry 98 Oxygen Delivery Method Sepsis Recent Fever Within 48 Hours Sepsis New/Unexplained Change in Mental Status Sepsis Action Taken by Nursing 07/26/24 18:15 07/26/24 18:32 07/26/24 18:39 Temperature 37.2 C Temperature Source Oral Pulse Rate 85 Pulse Rate [Apical] Pulse Rate from SpO2 Sensor 84 Pulse Rhythm Pulse Strength Respiratory Rate 24 Respiratory Effort / Characteristics Respiratory Depth Respiratory Pattern Blood Pressure 148/63 H Blood Pressure [Right Arm] Blood Pressure Mean 79 Blood Pressure Mean [Right Arm] Blood Pressure Position [Right Arm] Pulse Oximetry 98 Oxygen Delivery Method Sepsis Recent Fever Within 48 Hours Sepsis New/Unexplained Change in Mental Status Sepsis Action Taken by Nursing 07/26/24 18:45 07/26/24 19:33 Temperature Temperature Source Pulse Rate 80 Pulse Rate [Apical] Pulse Rate from SpO2 Sensor 80 Pulse Rhythm Pulse Strength Respiratory Rate 22 Respiratory Effort / Characteristics Respiratory Depth Respiratory Pattern Blood Pressure 153/87 H 138/71 Blood Pressure [Right Arm] Blood Pressure Mean 99 93 Blood Pressure Mean [Right Arm] Blood Pressure Position [Right Arm] Pulse Oximetry 96 Oxygen Delivery Method Room Air Sepsis Recent Fever Within 48 Hours Sepsis New/Unexplained Change in Mental Status Sepsis Action Taken by Nursing Physical Exam HENT: Exam performed. - Head: Normocephalic and atraumatic. - Right Ear: External ear normal. No mastoid erythema - Left Ear: External ear normal. No mastoid erythema - Mouth/Throat: The oropharynx is clear and moist. No trismus in the jaw. No dental abscesses or uvula swelling. No oropharyngeal exudate or tonsillar abscesses. EYES: Conjunctivae and EOM are normal. Pupils are equal, round, and reactive to light. Right eye exhibits no discharge. Left eye exhibits no discharge. No scleral icterus. NECK: Normal range of motion. Neck supple. No JVD present. CV: Tachycardic rate, regular rhythm, normal heart sounds and intact distal pulses. There is no peripheral edema. Palpable radial pulses bue. PULM/CHEST: Effort normal and breath sounds normal. No respiratory distress. No stridor. He has no wheezes. He has no rales. ABD: The abdomen is soft.There is no tenderness. There is no rebound, no guarding MUSC/SKEL: Right lower extremity: Right foot stump is erythematous and at a mattress and warm to touch. Tender to touch. There is no drainage. There are open ulcers on his stump. No fluctuant areas. NEURO: Motor and sensation grossly intact. Course Course 1711: The patient was evaluated in room B12. A complete history and physical exam was performed Cardiac monitoring: An order was placed for continuous cardiac monitoring. The monitor shows a rate of 90 with sinus rhythm interpreted by me 1850: Vital signs stable. Labs are unremarkable with the exception of an elevated high-sensitivity troponin, patient always has an elevated high- sensitivity troponin, patient denies any chest pain. Lactic acid minimally elevated 2.1. Patient received 1 L IV fluid. X-rays are unremarkable for osteomyelitis or any pneumonia. Discussed with son the patient to probably be sent home with oral antibiotics for cellulitis given the infection does not go down to his bone but the son states he does not feel comfortable taking the patient home as previous given fall and is too weak. Not any hospitalist team was consulted for possible admission given the son's concerns. Administered Medications Vancomycin HCl 1,500 mg/ (Sodium Chloride) 530 mls @ 200 mls/hr IV NOW ONE Stop: 07/26/24 21:30 Last Admin: 07/26/24 20:06 Dose: 200 mls/hr Documented By: DELLA Discontinued Medications Sodium Chloride (Nss) 1,000 mls @ 999 mls/hr IV .Q1H1M ONE Stop: 07/26/24 18:11 Last Infusion: 07/26/24 18:36 Dose: Infused Documented By: Admin: 07/26/24 17:43 Dose: 999 mls/hr Documented By: MARÍA Acetaminophen (Ofirmev) 1,000 mg in 100 mls @ 400 mls/hr IV NOW STA Stop: 07/26/24 17:38 Last Infusion: 07/26/24 18:32 Dose: Infused Documented By: Admin: 07/26/24 17:47 Dose: 400 mls/hr Documented By: WILLIE Ceftriaxone Sodium (Rocephin) 2,000 mg in 50 mls @ 100 mls/hr IV NOW STA Stop: 07/26/24 19:21 Last Infusion: 07/26/24 20:05 Dose: Infused Documented By: Admin: 07/26/24 19:33 Dose: 100 mls/hr Documented By: DELLA Ibuprofen (Ibuprofen 600 Mg Tab) 600 mg PO NOW STA Stop: 07/26/24 20:13 Last Admin: 07/26/24 20:26 Dose: 600 mg Documented By: DELLA Medical Decision Making Laboratory Data Attestation: I reviewed the patient's lab results. 07/26/24 17:31 07/26/24 17:31 Lab Results 07/26/24 07/26/24 07/26/24 Range/Units 17:31 17:41 19:25 WBC 7.60 (4.8-10.8) K/ul RBC 5.03 (4.70-6.10) M/uL Hgb 13.1 L (14.0-18.0) g/dl Hct 40.8 L (42.0-52.0) % MCV 81.1 (80.0-100.0) fL MCH 26.0 (25.0-34.0) pg MCHC 32.1 (32.0-36.0) g/dL RDW Std Deviation 50.1 H (36.4-46.3) fL RDW Coeff of Neftali 17.0 H (11.5-14.5) % Plt Count 133 (130-400) K/uL MPV 9.3 L (9.4-12.4) fL Immature Gran % (Auto) 0.5 % Neut % (Auto) 86.7 % Lymph % (Auto) 5.9 % Spencer % (Auto) 6.6 % Eos % (Auto) 0.0 % Baso % (Auto) 0.3 % Neut # (Auto) 6.59 H (1.40-6.50) K/uL Lymph # (Auto) 0.45 L (1.20-3.40) K/uL Spencer # (Auto) 0.50 (0.11-0.59) K/uL Eos # (Auto) 0.00 (0.00-0.50) K/uL Baso # (Auto) 0.02 (0.00-0.20) K/uL Immature Gran # (Auto) 0.04 (0.01-0.20) K/uL PT 11.4 (9.0-12.0) Seconds INR 1.1 (0.9-1.1) APTT 31 (21-31) Seconds PTT Ratio 1.2 Sodium 133 L (136-145) mmol/L Potassium 3.9 (3.5-5.1) mmol/L Chloride 100 (98-107) mmol/L Carbon Dioxide 23 (21-32) mmol/L Anion Gap 10 (3-11) BUN 17 (6-23) mg/dl Creatinine 1.11 (0.6-1.4) mg/dl Est Cr Clr Drug Dosing 54.8 ml/min eGFR 67.97 BUN/Creatinine Ratio 15.3 (10-20) Glucose 148 H (70-99(Fasting)) mg/dl Lactate 2.1 H* (0.4-2.0) mmol/L Calcium 9.8 (8.6-10.3) mg/dl Magnesium 1.9 (1.7-2.4) mg/dl Total Bilirubin 1.2 H (0.2-1.0) mg/dl AST 14 (13-39) U/L ALT 8 (7-52) U/L Alkaline Phosphatase 82 (34-104) U/L Troponin I High Sens 28.3 H (0-20) pg/ml Total Protein 8.1 (6.0-8.3) gm/dl Albumin 3.8 (3.4-5.0) gm/dl Globulin 4.3 H (2.5-4.0) gm/dl Albumin/Globulin Ratio 0.9 (0.9-2) Procalcitonin 0.35 (0-0.5) ng/ml Urine Color Yellow Urine Appearance Clear (Clear) Urine pH 5.5 (4.5-7.5) Ur Specific [place]idan 1.016 (1.000-1.030) Urine Protein 1+ H (Negative) Urine Glucose (UA) Negative (Negative) Urine Ketones Trace H (Negative) Urine Blood 1+ H (Negative) Urine Nitrite Negative (Negative) Urine Bilirubin Negative (Negative) Urine Urobilinogen Negative (Negative) Ur Leukocyte Esterase 2+ H (Negative) Urine WBC (Auto) 21-50 H (0-5) /hpf Urine RBC (Auto) 0-2 (0-2) /hpf U Hyaline Cast (Auto) 3-5 H (0-2) /lpf U Epithel Cells (Auto) 0-2 (0-2) /hpf Urine Bacteria (Auto) 1+ H (None Seen) Urine Comment Adenovirus (PCR) Not Detected (NotDetected) B. pertussis DNA (PCR) Not Detected (NotDetected) B.parapertussis DNA PCR Not Detected (NotDetected) C. pneumoniae DNA (PCR) Not Detected (NotDetected) Coronavirus OC43 (PCR) Not Detected (NotDetected) Coronavirus HKU1 (PCR) Not Detected (NotDetected) Coronavirus 229E (PCR) Not Detected (NotDetected) SARS-CoV-2 (PCR) Not Detected (NotDetected) Coronavirus NL63 (PCR) Not Detected (NotDetected) Human Metapneumovir PCR Not Detected (NotDetected) Influenza Type A (PCR) Not Detected (NotDetected) Influenza Type B (PCR) Not Detected (NotDetected) M. pneumoniae (PCR) Not Detected (NotDetected) Parainfluenza 1 (PCR) Not Detected (NotDetected) Parainfluenza 2 (PCR) Not Detected (NotDetected) Parainfluenza 3 (PCR) Not Detected (NotDetected) Parainfluenza 4 (PCR) Not Detected (NotDetected) RSV (PCR) Not Detected (NotDetected) Entero/Rhino (PCR) Not Detected (NotDetected) 07/26/24 Range/Units 19:28 WBC (4.8-10.8) K/ul RBC (4.70-6.10) M/uL Hgb (14.0-18.0) g/dl Hct (42.0-52.0) % MCV (80.0-100.0) fL MCH (25.0-34.0) pg MCHC (32.0-36.0) g/dL RDW Std Deviation (36.4-46.3) fL RDW Coeff of Neftali (11.5-14.5) % Plt Count (130-400) K/uL MPV (9.4-12.4) fL Immature Gran % (Auto) % Neut % (Auto) % Lymph % (Auto) % Spencer % (Auto) % Eos % (Auto) % Baso % (Auto) % Neut # (Auto) (1.40-6.50) K/uL Lymph # (Auto) (1.20-3.40) K/uL Spencer # (Auto) (0.11-0.59) K/uL Eos # (Auto) (0.00-0.50) K/uL Baso # (Auto) (0.00-0.20) K/uL Immature Gran # (Auto) (0.01-0.20) K/uL PT (9.0-12.0) Seconds INR (0.9-1.1) APTT (21-31) Seconds PTT Ratio Sodium (136-145) mmol/L Potassium (3.5-5.1) mmol/L Chloride (98-107) mmol/L Carbon Dioxide (21-32) mmol/L Anion Gap (3-11) BUN (6-23) mg/dl Creatinine (0.6-1.4) mg/dl Est Cr Clr Drug Dosing ml/min eGFR BUN/Creatinine Ratio (10-20) Glucose (70-99(Fasting)) mg/dl Lactate 1.0 (0.4-2.0) mmol/L Calcium (8.6-10.3) mg/dl Magnesium (1.7-2.4) mg/dl Total Bilirubin (0.2-1.0) mg/dl AST (13-39) U/L ALT (7-52) U/L Alkaline Phosphatase (34-104) U/L Troponin I High Sens 31.2 H (0-20) pg/ml Total Protein (6.0-8.3) gm/dl Albumin (3.4-5.0) gm/dl Globulin (2.5-4.0) gm/dl Albumin/Globulin Ratio (0.9-2) Procalcitonin (0-0.5) ng/ml Urine Color Urine Appearance (Clear) Urine pH (4.5-7.5) Ur Specific [place] (1.000-1.030) Urine Protein (Negative) Urine Glucose (UA) (Negative) Urine Ketones (Negative) Urine Blood (Negative) Urine Nitrite (Negative) Urine Bilirubin (Negative) Urine Urobilinogen (Negative) Ur Leukocyte Esterase (Negative) Urine WBC (Auto) (0-5) /hpf Urine RBC (Auto) (0-2) /hpf U Hyaline Cast (Auto) (0-2) /lpf U Epithel Cells (Auto) (0-2) /hpf Urine Bacteria (Auto) (None Seen) Urine Comment Adenovirus (PCR) (NotDetected) B. pertussis DNA (PCR) (NotDetected) B.parapertussis DNA PCR (NotDetected) C. pneumoniae DNA (PCR) (NotDetected) Coronavirus OC43 (PCR) (NotDetected) Coronavirus HKU1 (PCR) (NotDetected) Coronavirus 229E (PCR) (NotDetected) SARS-CoV-2 (PCR) (NotDetected) Coronavirus NL63 (PCR) (NotDetected) Human Metapneumovir PCR (NotDetected) Influenza Type A (PCR) (NotDetected) Influenza Type B (PCR) (NotDetected) M. pneumoniae (PCR) (NotDetected) Parainfluenza 1 (PCR) (NotDetected) Parainfluenza 2 (PCR) (NotDetected) Parainfluenza 3 (PCR) (NotDetected) Parainfluenza 4 (PCR) (NotDetected) RSV (PCR) (NotDetected) Entero/Rhino (PCR) (NotDetected) Imaging Data Attestation: I personally reviewed and interpreted this imaging study as follows: My Impression: Chest x-ray negative. Airway clear. No pneumothorax. No consolidation. No cardiomegaly or cephalization.. No free air under the diaphragm. No fractures of the skeletal structures. Radiologist's Impression: Chest X-Ray 07/26/24 17:01 Chest radiograph, one view History: Sepsis Comparison: None Findings: Single AP view of the chest performed. No focal consolidation or pleural effusion. No pneumothorax. The cardiomediastinal silhouette is within normal limits. Normal pulmonary vascularity. No evidence for lymphadenopathy. No visualized bony or soft tissue abnormality. Impression: Normal chest radiograph Electronically signed by Ortega Marino 07-26-2024 5:51 PM Foot X-Ray 07/26/24 17:11 Study: Right foot 3 views History: Sepsis Comparison: None Findings: There is no acute fracture or dislocation. Alignment is anatomic. Joint spaces are well maintained. Amputation changes across all digits at the proximal metatarsals. Overlying soft tissue reconstruction, appears grossly unremarkable. Calcaneal enthesophytes. Impression: No acute bony abnormality. Amputation changes.Chest radiograph, one view History: Chest pain Comparison: Findings: Single AP view of the chest performed. No focal consolidation or pleural effusion. No pneumothorax. The cardiomediastinal silhouette is within normal limits. Normal pulmonary vascularity. No evidence for lymphadenopathy. No visualized bony or soft tissue abnormality. Impression: Normal chest radiograph Electronically signed by Ortega Marino 07-26-2024 5:51 PM ECG Data Attestation: I personally reviewed and interpreted this ECG as follows: Rate (beats per minute): 95 Rhythm: + normal sinus ECG Intervals/blocks: + Normal QRS, + Normal MS and + Normal QT-c ECG ST segments: + Normal ST segments [facility] Narrative 1711: The patient was evaluated in room B12. A complete history and physical exam was performed Cardiac monitoring: An order was placed for continuous cardiac monitoring. The monitor shows a rate of 90 with sinus rhythm interpreted by me 1850: Vital signs stable. Labs are unremarkable with the exception of an elevated high-sensitivity troponin, patient always has an elevated high- sensitivity troponin, patient denies any chest pain. Lactic acid minimally elevated 2.1. Patient received 1 L IV fluid. X-rays are unremarkable for osteomyelitis or any pneumonia. Discussed with son the patient to probably be sent home with oral antibiotics for cellulitis given the infection does not go down to his bone but the son states he does not feel comfortable taking the patient home as previous given fall and is too weak. Not any hospitalist team was consulted for possible admission given the son's concerns. Impression & Plan Cellulitis, Acute UTI Discharge Plan Visit Data Chief Complaint: Infection Stated Complaint: ULCER ON FOOT, INFECTION, HIGH TEMP, DIABETIC ED Provider: Parvez Duong Discharge Problem: Cellulitis, Acute UTI Patient Disposition: Admitted As Inpatient Condition: Good Forms Stand Alone Forms: [facility] [place] Prescriptions Prescriptions: No Action (DME) Dexcom G7 [facility]one Examiner Misc See Rx Instructions .MEDSUPPLY Qty: 1 0RF Rx Instructions: Use to check blood glucose tid and prn (DME) Dexcom G7 Sensor Device See Rx Instructions .MEDSUPPLY Qty: 3 5RF Rx Instructions: Use to check blood glucose 3 times daily and as needed sertraline 50 mg tablet 50 mg PO BID Qty: 180 3RF metoprolol tartrate 100 mg tablet 100 mg PO BID Qty: 180 3RF potassium chloride 20 mEq tablet,ER particles/crystals 20 meq PO BID Qty: 180 3RF triamterene-hydrochlorothiazid 75-50 mg tablet 1 tab PO DAILY Qty: 90 3RF insulin glargine-yfgn [Semglee(insulin glarg-yfgn)Pen] 100 unit/mL (3 mL) insulin pen 20 unit subcut QAM Qty: 15 2RF thiamine HCl (vitamin B1) 100 mg tablet 100 mg PO BID tamsulosin [Flomax] 0.4 mg capsule 0.4 mg PO HS Qty: 90 1RF (DME) Xeroform Petrolatum Dressing 4 X 4 " bandage See Rx Instructions .Route Qty: 100 0RF Rx Instructions: Use with dressing change every other day acetaminophen 325 mg Tablet 650 mg PO Q4H PRN (Reason: pain) Qty: 30 0RF Referrals Referrals: Stephan Townsend III, CRNP [Primary Care Provider] - Discharge Problem: Cellulitis Qualifiers: Site of cellulitis: extremity Site of cellulitis of extremity: lower extremity Laterality: right Qualified Code(s): L03.115 - Cellulitis of right lower limb
[2024-07-26] MEDS: SODIUM CHLORIDE 0.9% 1,000 ML IV ONE (17:43)
[2024-07-26] MEDS: ACETAMINOPHEN 1,000 MG/100 ML VIAL IV STA (17:47)
[2024-07-26 17:51] LABS: Basophils # (auto) 0.02 K/uL (0.00-0.20); Basophils % (auto) 0.3 %; Hematocrit (blood only) 40.8 % (42.0-52.0); Hemoglobin 13.1 g/dl (14.0-18.0); Immature Granulocytes # (auto) 0.04 K/uL (0.01-0.20); Immature Granulocytes % (auto) 0.5 %; Lymphocytes # (auto) 0.45 K/uL (1.20-3.40); Lymphocytes % (auto) 5.9 %; Mean Corpuscular Hgb Conc 32.1 g/dL (32.0-36.0); Mean Corpuscular Volume 81.1 fL (80.0-100.0); Mean Platelet Volume 9.3 fL (9.4-12.4); Monocytes % (auto) 6.6 %; Neutrophils # (auto) 6.59 K/uL (1.40-6.50); Neutrophils % (auto) 86.7 %; Platelet Count 133 K/uL (130-400); RDW Standard Deviation 50.1 fL (36.4-46.3); Red Blood Count 5.03 M/uL (4.70-6.10)
--- NOTE | 2024-07-26 17:51 | XRay Report ---
Chest radiograph, one view History: Sepsis Comparison: None Findings: Single AP view of the chest performed. No focal consolidation or pleural effusion. No pneumothorax. The cardiomediastinal silhouette is within normal limits. Normal pulmonary vascularity. No evidence for lymphadenopathy. No visualized bony or soft tissue abnormality. Impression: Normal chest radiograph Electronically signed by Ortega Marino 07-26-2024 5:51 PM
--- NOTE | 2024-07-26 17:51 | XRay Report ---
Study: Right foot 3 views History: Sepsis Comparison: None Findings: There is no acute fracture or dislocation. Alignment is anatomic. Joint spaces are well maintained. Amputation changes across all digits at the proximal metatarsals. Overlying soft tissue reconstruction, appears grossly unremarkable. Calcaneal enthesophytes. Impression: No acute bony abnormality. Amputation changes.Chest radiograph, one view History: Chest pain Comparison: Findings: Single AP view of the chest performed. No focal consolidation or pleural effusion. No pneumothorax. The cardiomediastinal silhouette is within normal limits. Normal pulmonary vascularity. No evidence for lymphadenopathy. No visualized bony or soft tissue abnormality. Impression: Normal chest radiograph Electronically signed by Ortega Marino 07-26-2024 5:51 PM
[2024-07-26 18:07] LABS: Albumin Globulin Ratio 0.9 (0.9-2); Albumin Level 3.8 gm/dl (3.4-5.0); BUN Creatinine Ratio 15.3 (10-20); Bilirubin,Total 1.2 mg/dl (0.2-1.0); Calcium 9.8 mg/dl (8.6-10.3); Creatinine Clr Calc Pharmacy 54.8 ml/min; Globulin 4.3 gm/dl (2.5-4.0); Magnesium 1.9 mg/dl (1.7-2.4); Potassium 3.9 mmol/L (3.5-5.1); Total Protein 8.1 gm/dl (6.0-8.3)
[2024-07-26 18:13] LABS: Troponin I High Sensitivity 28.3 pg/ml (0-20)
[2024-07-26 18:17] LABS: INR 1.1 (0.9-1.1); Partial Thromboplastin Ratio 1.2; Partial Thromboplastin Time 31 Seconds (21-31); Prothrombin Time 11.4 Seconds (9.0-12.0)
[2024-07-26 18:40] LABS: Adenovirus PCR Not Detected (NotDetected); Bordetella parapertussis PCR Not Detected (NotDetected); Bordetella pertussis PCR Not Detected (NotDetected); Chlamydia pneumoniae PCR Not Detected (NotDetected); Coronavirus 229E PCR Not Detected (NotDetected); Coronavirus CoV-2 (COVID19)PCR Not Detected (NotDetected); Coronavirus HKU1 PCR Not Detected (NotDetected); Coronavirus NL63 PCR Not Detected (NotDetected); Coronavirus OC43PCR Not Detected (NotDetected); Human Metapneumovirus PCR Not Detected (NotDetected); Influenza A PCR Not Detected (NotDetected); Influenza B PCR Not Detected (NotDetected); Mycoplasma pneumoniae PCR Not Detected (NotDetected); Parainfluenza Virus 1 PCR Not Detected (NotDetected); Parainfluenza Virus 2 PCR Not Detected (NotDetected); Parainfluenza Virus 3 PCR Not Detected (NotDetected); Parainfluenza Virus 4 PCR Not Detected (NotDetected); Respiratory Syncytial VirusPCR Not Detected (NotDetected); Rhinovirus/Enterovirus PCR Not Detected (NotDetected)
[2024-07-26] MEDS ORDERED: VANCOMYCIN CONSULT ACTIVE PRN ×2 (18:52→22:30)
--- NOTE | 2024-07-26 19:22 | History & Physical Report ---
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 ED evaluation reveals no leukocytosis, H&H 13.1/40.8; PT/INR WNL; CMP sodium 133, glucose 148, bilirubin 1.2; lactate 2.1; troponin 28.3; procalcitonin 0.35; BioFire negative; CXR normal; R foot XR no acute bony abnormalities, amputation changes; EKG NSR at 95 bpm.; Provided with 1L NSS, vancomycin IV, ceftriaxone 2 g IV, and acetaminophen 1 g IV in ED. #RLE Cellulitis/Weakness Pt with ongoing RLE wounds, tach required amputation of all digits and femoropopliteal bypass secondary to severity of disease. Follows with his vocational placement specialist/foot and ankle surgeon who evaluated him on the day of arrival (07/26/2024) - Dr. Oakes - and was concerned for worsening of his wounds, r/o OM. Had fever in the office of 101.2 F and reported weakness per son. Patient technically meets SIRS criteria on admission, with temperature greater than 38 C and heart rate greater than 100 bpm. Lactate was elevated at admission, no leukocytosis and procalcitonin normal. No evidence of osteomyelitis on imaging. Given weakness, fever, and initially elevated lactate - admit to hospital for IV abx. - CBC without leukocytosis, H/H 13.1/40.8 - Lactate initially 2.1, then received 1L NSS and repeat was 1; procal 0.35 - Blood cx pending -- prior growth of S. aureus and S. agalactiae (02/2024), both sensitive to Vancomycin and clindamycin - XR no acute bony abnormalities, amputation changes - No further imaging at admission - IBWF for sepsis calculated at 2.1L not required given no hypotension and lactate < 4 - Wound care as needed - Pain management with IBU/Tylenol - PT/OT consulted given weakness however, if patient is improving after abx can consider d/c of consult - appreciate assistance - Amandao + Francis IV - Podiatry consult placed to Dr. Oakes - Spoke with provider via [place] regarding consult - appreciate all assistance - ID consult can be considered, none placed at time of admission #Elevated troponin No current chest pain. - Troponin 28.3 -> 31.2 -> pending repeat. - EKG NSR, without ischemic changes - Likely 2/2 demand #T2DM H/o DMT2; At home regimen Glargine 20U am - Most recent A1C 02/2024 @ 6.4% - SSI with target BSG range 110-140mg/dL, CF 40, carb ratio 10 - Glargine 10U BID - T2DM diet - BSG ACHS - Pharm glycemic management consult placed, appreciate assistance - Adjust regimen as needed #HTN- Not hypotensive; Metoprolol tartrate, dyazide - continue #HLD- Per PCP note, not on medication for. #Depression- Stable; Sertraline - continue #BPH- No current LUTS; Tamsulosin - continue Dispo: Obs, med/tele VTE Prophylaxis: Lovenox This document was dictated utilizing Zecco. Please excuse any grammatical errors that may be secondary to use of this software. 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 Patient send helps provide history. States that the patient has had ongoing infections and wounds in the R foot, and which did require amputation of multiple digits and a bypass in February 2024. On the day of arrival, he had seen his foot and ankle surgeon, Dr. Oakes, who was concerned that the patient's foot and wounds looked worse than they had previously. Patient states that he is having some sharp pain in the R foot, more so on the lateral aspect of the R foot. 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 He also has had a fever of 101.2 F starting day of arrival. His son notes that the patient has had increased weakness starting at 1400 the day of arrival. This was so significant, that the patient was unable to walk on his own and the son had to assist in ambulating. Patient states that his pain has improved somewhat since being off of his foot. He does feel like he has been having difficulty ambulating on the day of arrival. He does feel that he is maybe not as strong as he normally is. Of note, does have occasional constipation, having a normal bowel movement approximately every 3 days but this does alternate every once in a while depending on what the patient eats per his report. He has not had chills. No chest pain, SOB, palpitations, abdominal pain, N/V/D, abnormal numbness/tingling, LUTS, URI symptoms, or syncope. ED evaluation reveals no leukocytosis, H&H 13.1/40.8; PT/INR WNL; CMP sodium 133, glucose 148, bilirubin 1.2; lactate 2.1; troponin 28.3; procalcitonin 0.35; BioFire negative; CXR normal; R foot XR no acute bony abnormalities, amputation changes; EKG NSR at 95 bpm.; Provided with 1L NSS, vancomycin IV, ceftriaxone 2 g IV, and acetaminophen 1 g IV in ED. Please see Dr. Santos's attestation for adjustments/additions to treatment plan. Allergies Allergy/AdvReac Type Severity Reaction Status Date / Time No Known Allergies Allergy Verified 07/26/24 19:07 Home Medications Medication Instructions Recorded Confirmed Type acetaminophen 325 mg tablet 650 mg (2 x 325 mg) PO Q4H PRN 03/13/24 07/26/24 Rx pain #30 tabs bismuth tribrom-petrolatum,wh 4" X #100 ea 04/18/24 04/18/24 Rx 4" bandage (Xeroform Petrolatum Dressing) tamsulosin 0.4 mg capsule (Flomax) 0.4 mg PO HS #90 caps 04/18/24 07/26/24 Rx blood-glucose sensor (Dexcom G7 #3 ea 04/30/24 Rx Sensor device) blood-glucose,industrial machinery mechanic,cont #1 ea 04/30/24 Rx (Dexcom G7 Fund Controller) thiamine HCl (vitamin B1) 100 mg 100 mg PO BID 05/07/24 07/26/24 History tablet metoprolol tartrate 100 mg tablet 100 mg PO BID #180 tabs 05/14/24 07/26/24 Rx potassium chloride 20 mEq 20 meq PO BID #180 tabs 05/14/24 07/26/24 Rx tablet,extended release(part/cryst) sertraline 50 mg tablet 50 mg PO BID #180 tabs 05/14/24 07/26/24 Rx triamterene 75 1 tab PO DAILY #90 tabs 05/14/24 07/26/24 Rx mg-hydrochlorothiazide 50 mg tablet insulin glargine-yfgn 100 unit/mL 20 unit (0.2 mL) subcut QAM #15 mL 06/21/24 07/26/24 Rx (3 mL) subcutaneous pen (Semglee (insulin glargine-yfgn) Pen) Past Med/Surg History Problem List (Updated 07/29/24 @ 09:55 by Violeta Gunter PA-C) Peripheral arterial disease with history of revascularization MRSA bacteremia PVD (peripheral vascular disease) Acute osteomyelitis of right foot Acute UTI (Acute) Cellulitis (Acute) Open wound of right foot with complication (Chronic) BPH (benign prostatic hyperplasia) (Chronic) Depression (Chronic) Hyperlipidemia (Chronic) Benign essential hypertension (Chronic) 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) Medical History Paroxysmal SVT (supraventricular tachycardia) 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 Prolonged QT interval Surgical History S/P femoral-tibial bypass S/P vascular surgery Social History Smoking Status: Current every day smoker Tobacco Type: Cigarettes Age Started Using Tobacco: 19; Age Quit Using Tobacco: 78; packs per day: 1; Cigarettes Per Day: 3-5 - "cut way back since my foot"; Second Hand Exposure: No; Do You Dip or Chew Tobacco: No; Tobacco Cessation Education Requested by Patient: No Hx Alcohol Use: No Hx Substance Use: No Preferred Language: Cook Islander Communication Ability: Effective Exploration Manager Required: No Beliefs That Will Affect Care: None Current Living Situation: Alone Current Living Situation Comment: patient lives alone, states son does live close by Other Information That Helps Us Care for You: No Feels Safe at Home: Yes Safety Concerns: Feels Safe At This Time Assistive Devices: Cane and Walker Review of Systems 2 Review of Systems: All systems reviewed & are unremarkable except as noted in Subjective Physical Exam 2 Physical Exam: General: No acute distress Skin: Warm and dry Head: Normocephalic, atraumatic Eyes: PERRL, conjunctivae clear, sclera non-icteric; Some dry skin around eyes ENT: External ear and ear canal without swelling; nose atraumatic; poor dentition, tongue normal appearance, pharynx normal Neck: Supple, no LAD Cardio: RRR, no M/G/R, S1 and S2 normal Resp: No respiratory distress, Lungs CTA in all lobes bilaterally, no wheezes, rales, or rhonchi Abdomen: Soft, symmetric, nontender; No masses or hepatosplenomegaly; Bowel sounds normoactive MSK: RLE without digits, two wound crater areas of skin on medial/top aspect and lateral/base aspect, no current drainage, erythema surrounding amputation site, mild edema around area of ankle, abrasion on anterior aspect dick, no streaking; pulses palpable and equal. See images. Neuro: Awake, alert; Sensation intact bilaterally; CN grossly intact Psych: Appropriate mood and affect; good judgement and insight. Son present in room at time of visit. Results & Data Results & Data Vital Signs (Past 12 Hours) Vital Signs Temp Pulse Pulse Resp BP BP Pulse Ox 07/26/24 18:45 153/87 H 07/26/24 18:39 85 24 98 07/26/24 18:32 37.2 C 07/26/24 18:15 148/63 H 07/26/24 18:00 87 20 98 07/26/24 18:00 147/74 H 07/26/24 17:52 88 07/26/24 17:48 88 19 98 07/26/24 17:45 135/81 07/26/24 17:42 91 H 18 99 07/26/24 17:40 90 20 98 07/26/24 17:40 98 07/26/24 17:36 95 H 20 98 07/26/24 17:33 142/76 H 07/26/24 17:30 38.3 C H 95 H 20 142/76 H 98 07/26/24 16:57 38.0 C H 104 H 18 115/61 98 O2 Del Method 07/26/24 18:45 07/26/24 18:39 07/26/24 18:32 07/26/24 18:15 07/26/24 18:00 07/26/24 18:00 07/26/24 17:52 07/26/24 17:48 07/26/24 17:45 07/26/24 17:42 07/26/24 17:40 Room Air 07/26/24 17:40 Room Air 07/26/24 17:36 07/26/24 17:33 07/26/24 17:30 Room Air 07/26/24 16:57 Room Air Laboratory Results 07/26/24 17:31 Aerobic Blood Culture - Pending Blood Anaerobic Blood Culture - Pending 07/26/24 17:31 Aerobic Blood Culture - Pending Blood Anaerobic Blood Culture - Pending 07/26/24 07/26/24 17:41 17:31 WBC 7.60 RBC 5.03 Hgb 13.1 L Hct 40.8 L MCV 81.1 MCH 26.0 MCHC 32.1 RDW Std Deviation 50.1 H RDW Coeff of Neftali 17.0 H Plt Count 133 MPV 9.3 L Immature Gran % (Auto) 0.5 Neut % (Auto) 86.7 Lymph % (Auto) 5.9 [place] % (Auto) 6.6 Eos % (Auto) 0.0 Baso % (Auto) 0.3 Neut # (Auto) 6.59 H Lymph # (Auto) 0.45 L [place] # (Auto) 0.50 Eos # (Auto) 0.00 Baso # (Auto) 0.02 Immature Gran # (Auto) 0.04 PT 11.4 INR 1.1 APTT 31 PTT Ratio 1.2 Sodium 133 L Potassium 3.9 Chloride 100 Carbon Dioxide 23 Anion Gap 10 BUN 17 Creatinine 1.11 Est Cr Clr Drug Dosing 54.8 eGFR 67.97 BUN/Creatinine Ratio 15.3 Glucose 148 H Lactate 2.1 H* Calcium 9.8 Magnesium 1.9 Total Bilirubin 1.2 H AST 14 ALT 8 Alkaline Phosphatase 82 Troponin I High Sens 28.3 H Total Protein 8.1 Albumin 3.8 Globulin 4.3 H Albumin/Globulin Ratio 0.9 Procalcitonin 0.35 Adenovirus (PCR) Not Detected B. pertussis DNA (PCR) Not Detected B.parapertussis DNA PCR Not Detected C. pneumoniae DNA (PCR) Not Detected Coronavirus OC43 (PCR) Not Detected Coronavirus HKU1 (PCR) Not Detected Coronavirus 229E (PCR) Not Detected SARS-CoV-2 (PCR) Not Detected Coronavirus NL63 (PCR) Not Detected Human Metapneumovir PCR Not Detected Influenza Type A (PCR) Not Detected Influenza Type B (PCR) Not Detected M. pneumoniae (PCR) Not Detected Parainfluenza 1 (PCR) Not Detected Parainfluenza 2 (PCR) Not Detected Parainfluenza 3 (PCR) Not Detected Parainfluenza 4 (PCR) Not Detected RSV (PCR) Not Detected Entero/Rhino (PCR) Not Detected Diagnostic Findings Chest X-Ray 07/26/24 17:01 Chest radiograph, one view History: Sepsis Comparison: None Findings: Single AP view of the chest performed. No focal consolidation or pleural effusion. No pneumothorax. The cardiomediastinal silhouette is within normal limits. Normal pulmonary vascularity. No evidence for lymphadenopathy. No visualized bony or soft tissue abnormality. Impression: Normal chest radiograph Electronically signed by Ortega Marino 07-26-2024 5:51 PM Foot X-Ray 07/26/24 17:11 Study: Right foot 3 views History: Sepsis Comparison: None Findings: There is no acute fracture or dislocation. Alignment is anatomic. Joint spaces are well maintained. Amputation changes across all digits at the proximal metatarsals. Overlying soft tissue reconstruction, appears grossly unremarkable. Calcaneal enthesophytes. Impression: No acute bony abnormality. Amputation changes.Chest radiograph, one view History: Chest pain Comparison: Findings: Single AP view of the chest performed. No focal consolidation or pleural effusion. No pneumothorax. The cardiomediastinal silhouette is within normal limits. Normal pulmonary vascularity. No evidence for lymphadenopathy. No visualized bony or soft tissue abnormality. Impression: Normal chest radiograph Electronically signed by Ortega Marino 07-26-2024 5:51 PM Medications Administered 1L NSS Vancomycin 1.5 g IV Ceftriaxone 2 g IV Acetaminophen 1 g IV ECG Additional Comments: NSR 95 bpm, DE 136, QRS 114, QT/QTc 370/464, PRT 22/38/-44 Code Status & VTE Plan Code Status Full Supervising Physician Co-Signing Physician Notes I personally saw and examined the patient. I independently reviewed the labs, EKG, imaging, problem list, medication list, past medical history and family history. I verified all mejía points and agree with Charlotte Cabrera PA-C with the following exceptions and/or additions: 79 year old male presents to the ER with worsening right lower extremity erythema and swelling following recent toe amputations in February. O/E right lower extremity erythema and swelling from foot to ankle as per pictures above, cap refill < 2s A/P RLE cellulitis - IV vancomycin + Zosyn. Consult podiatry, will defer any further advanced imaging to podiatry tomorrow. PG Care Time/CCT Total # of Minutes Spent Total Time Spent with Patient: Total time spent is greater than 50% in coordination of care (as documented) at patient's floor/unit and/or counseling patient: Coding Level of Care Code 80221 INT INP/OBS CARE 375MIN Diagnoses Open wound of right foot with complication, initial encounter S91.301A Encounter type: initial encounter Cellulitis L03.115 Laterality: right Site of cellulitis: extremity Site of cellulitis of extremity: lower extremity (1) Open wound of right foot with complication Encounter type: initial encounter Qualified Code(s): S91.301A - Unspecified open wound, right foot, initial encounter (2) Cellulitis Laterality: right Site of cellulitis: extremity Site of cellulitis of extremity: lower extremity Qualified Code(s): L03.115 - Cellulitis of right lower limb
[2024-07-26] MEDS: cefTRIAXone SODIUM 2,000 MG/50 ML BAG IV STA (19:33)
[2024-07-26 19:46] LABS: Appearance Urine Clear (Clear); Bacteria Urine Automated 1+ (None Seen); Bilirubin Urine Negative (Negative); Blood Urine 1+ (Negative); Color Urine Yellow; Epithelial Cell Urine Auto 0-2 /hpf (0-2); Glucose Urine UA Negative (Negative); Ketones Urine Trace (Negative); Leukocyte Esterase Urine 2+ (Negative); Nitrite Urine Negative (Negative); Protein Urine 1+ (Negative); RBC Urine Automated 0-2 /hpf (0-2); Specific Gravity Urine 1.016 (1.000-1.030); Urobilinogen Urine Negative (Negative); WBC Urine Automated 21-50 /hpf (0-5); pH Urine 5.5 (4.5-7.5)
[2024-07-26] MEDS: VANCOMYCIN HCL 1,500 MG in SODIUM CHLORIDE 0.9% 500 ML IV ONE (20:06)
[2024-07-26] MEDS: IBUPROFEN 600 MG TAB PO STA ×2 (20:26→23:09)
[2024-07-26] MEDS: ACETAMINOPHEN 325 MG TAB PO STA (20:35)
[2024-07-26] MEDS ORDERED: GLUCOSE 40% GEL 15 GM TUBE PO PRN (22:30)
[2024-07-26] MEDS ORDERED: ONDANSETRON INJ 2 MG/ML 2 ML VIAL IV PRN (22:30)
[2024-07-26] MEDS ORDERED: GLUCOSE 10 TAB/TUBE PO PRN (22:30)
[2024-07-26] MEDS ORDERED: MELATONIN 3 MG TAB PO PRN (22:30)
[2024-07-26] MEDS ORDERED: DEXTROSE 50% 50 ML SYRINGE IV PRN (22:30)
[2024-07-26] MEDS ORDERED: CARBOHYDRATES FOR HYPOGLYCEMIA PO PRN (22:30)
[2024-07-26] MEDS ORDERED: ACETAMINOPHEN 325 MG TAB PO PRN (22:30)
[2024-07-26] MEDS ORDERED: POLYETHYLENE (MIRALAX) 17 GM PACK PO PRN (22:30)
[2024-07-26] MEDS ORDERED: PHARMACY GLYCEMIC MGMT CONSULT PRN (22:30)
[2024-07-26] MEDS ORDERED: GLUCAGON FOR INJ 1 MG VIAL SQ PRN (22:30)
[2024-07-26] MEDS: ENOXAPARIN INJ 40 MG/0.4 ML SYR SQ SCH (23:09)
[2024-07-26] MEDS: PIPERACILLIN/TAZOBACTAM 4.5 GM/100 ML BAG IV ONE (23:10)
[2024-07-26] MEDS: INSULIN ASPART PER UNIT CHARGE SC SCH (23:17)
[2024-07-27] MEDS: VANCOMYCIN HCL 1,500 MG in SODIUM CHLORIDE 0.9% 500 ML IV SCH (03:18)
[2024-07-27] MEDS: PIPERACILLIN/TAZOBACTAM 4.5 GM/100 ML BAG IV SCH (05:10)
[2024-07-27 06:30] LABS: BUN Creatinine Ratio 18.6 (10-20); Calcium 8.5 mg/dl (8.6-10.3); Creatinine Clr Calc Pharmacy 59.7 ml/min; Potassium 3.4 mmol/L (3.5-5.1)
[2024-07-27 06:37] LABS: Hematocrit (blood only) 38.5 % (42.0-52.0); Hemoglobin 12.3 g/dl (14.0-18.0); Mean Corpuscular Hemoglobin 25.8 pg (25.0-34.0); Mean Corpuscular Hgb Conc 31.9 g/dL (32.0-36.0); Mean Corpuscular Volume 80.7 fL (80.0-100.0); Mean Platelet Volume 9.2 fL (9.4-12.4); Platelet Count 100 K/uL (130-400); RDW Coefficient of Variation 16.8 % (11.5-14.5); RDW Standard Deviation 49.7 fL (36.4-46.3); Red Blood Count 4.77 M/uL (4.70-6.10); White Blood Count 4.49 K/ul (4.8-10.8)
--- NOTE | 2024-07-27 08:15 | Podiatry Consultation ---
Date of Consultation July 27, 2024 Assessment & Plan (1) Diabetes mellitus with peripheral angiopathy with gangrene: Diabetes mellitus terminal supervisor insulin use: with fdc use Diabetes mellitus type: type 2 Qualified Code(s): E11.52 - Type 2 diabetes mellitus with diabetic peripheral angiopathy with gangrene; Z79.4 - intermediate (current) use of insulin (2) Acute osteomyelitis of right foot: (3) Cellulitis: Laterality: right Site of cellulitis: extremity Site of cellulitis of extremity: lower extremity Qualified Code(s): L03.115 - Cellulitis of right lower limb (4) Acute UTI: Plan Patient was examined and evaluated. Right foot plantar wound was debrided at bedside to the level of the bone. Purulent drainage was expressed. We discussed at length that he would benefit from IV antibiotics and continued wound care for two months to attempt limb salvage versus a more proximal amputation, either an AKA or BKA, at the surgeon's discretion. MR imaging would be useful to confirm this suspected osteomyelitis, though clinical exam is enough to be fairly conclusive here. Further, arterial studies could help determine the level of amputation required and/or the potential success of further antibiotics. MRI and arterial ultrasound were both ordered and discussed with patient, though prior to finishing this note, he has refused these tests with the associated imaging staff members, stating he is "done with the foot" and would prefer to consider amputation. We would recommend a consult to vascular and/or orthopedics to consider and plan an amputation in addition to an ID consult to potentially discuss benefits and risks of further attempts at limb salvage. We will sign off for now, and will be out of town until the end of next week. If he is inpatient still and requires further input for the foot at that time, we would be happy to check back in. Thank you for the consult. History of Present Illness Reason for Consultation: Right foot infection Attending Physician: Campbell Santos MD History of Present Illness Patient seen at bedside. Known to our service from prior admissions here and subsequent outpatient follow-up. We saw him in office yesterday and noted a new onset of a wound to the bottom of the right foot, unknown to the patient for more than a week or so. His transmetatarsal amputation site had been well healed since surgery but had delayed healing to a larger dorsal ulceration overlying the top of the foot/front of the ankle. This has made steady progress, but now has this new wound leading to increasing redness, swelling, and drainage of the foot. He was also notably feeling weak and sick in the office, so he was sent to the emergency department for likely admission and further testing. Now, after a few hours of antibiotics and rest, he is feeling better but unsure of how he wants to proceed. He currently denies any worsening systemic signs of infection. He also denies any significant pain to the foot. Allergies Allergy/AdvReac Type Severity Reaction Status Date / Time No Known Allergies Allergy Verified 07/26/24 19:07 Home Medications Medication Instructions Recorded Confirmed Type acetaminophen 325 mg tablet 650 mg (2 x 325 mg) PO Q4H PRN 03/13/24 07/26/24 Rx pain #30 tabs bismuth tribrom-petrolatum,wh 4" X #100 ea 04/18/24 04/18/24 Rx 4" bandage (Xeroform Petrolatum Dressing) tamsulosin 0.4 mg capsule (Flomax) 0.4 mg PO HS #90 caps 04/18/24 07/26/24 Rx blood-glucose sensor (Dexcom G7 #3 ea 04/30/24 Rx Sensor device) blood-glucose,sewing pattern layout technician,cont #1 ea 04/30/24 Rx (Dexcom G7 [place] Boat Captain) thiamine HCl (vitamin B1) 100 mg 100 mg PO BID 05/07/24 07/26/24 History tablet metoprolol tartrate 100 mg tablet 100 mg PO BID #180 tabs 05/14/24 07/26/24 Rx potassium chloride 20 mEq 20 meq PO BID #180 tabs 05/14/24 07/26/24 Rx tablet,extended release(part/cryst) sertraline 50 mg tablet 50 mg PO BID #180 tabs 05/14/24 07/26/24 Rx triamterene 75 1 tab PO DAILY #90 tabs 05/14/24 07/26/24 Rx mg-hydrochlorothiazide 50 mg tablet insulin glargine-yfgn 100 unit/mL 20 unit (0.2 mL) subcut QAM #15 mL 06/21/24 07/26/24 Rx (3 mL) subcutaneous pen (Semglee (insulin glargine-yfgn) Pen) Patient History Medical History Acute osteomyelitis of right foot Paroxysmal SVT (supraventricular tachycardia) 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 Prolonged QT interval Surgical History S/P femoral-tibial bypass S/P vascular surgery Social History Smoking Status: Current every day smoker Tobacco Type: Cigarettes Age Started Using Tobacco: 19; Age Quit Using Tobacco: 78; packs per day: 1; Cigarettes Per Day: 3-5 - "cut way back since my foot"; Second Hand Exposure: No; Do You Dip or Chew Tobacco: No; Tobacco Cessation Education Requested by Patient: No Hx Alcohol Use: No Hx Substance Use: No Preferred Language: [place]ian Communication Ability: Effective Receiving Lead Required: No Beliefs That Will Affect Care: None Current Living Situation: Alone Current Living Situation Comment: patient lives alone, states son does live close by Other Information That Helps Us Care for You: No Feels Safe at Home: Yes Safety Concerns: Feels Safe At This Time Assistive Devices: Cane, Walker and Wheelchair Review of Systems Review of Systems: All systems reviewed & are unremarkable except as noted in HPI & below Constitutional: + fever, + fatigue and + weakness Eyes: no problem reported Ear, Nose, Mouth, Throat: no problem reported Respiratory: no problem reported Cardiovascular: + edema; no calf pain and no claudicatio n Gastrointestinal: no nausea and no vomiting Genitourinary: no problem reported Musculoskeletal: + limited range of motion Integumentary: + skin ulcer and + erythema Neurologic: + generalized weakness and + numbness Psychiatric: no problem reported Endocrine: no problem reported Physical Exam Physical Exam: Lower extremity focused exam: DP/PT pulses nonpalpable. TMA site without d ehiscence or drainage/bleeding. New deep probing ulceration noted to the plantar lateral TMA stump, underlying the distal aspect of the fifth metatarsal. The wound, after light debridement and probing, extends to the bone directly, with purulent drainage expressed along the lateral aspect of the diaphysis. Proximal dorsal ulceration is improved, 90% granular, 10% necrotic and measuring only 1 cm in diameter. This necrosis is superficial, overlying the EHL tendon sheath. Ascending cellulitis is noted to the lower leg, consistent with the overall infected nature of the limb. Constitutional: WD/WN, vitals as above + ill appearing and + thin Eyes: PERRL, conjunctivae normal, anicteric sclerae ENMT: external ear and nose normal, oropharynx normal Mouth: + poor dentition Neck: trachea midline, no thyromegaly Respiratory: normal respiratory effort and + respiratory distress Cardiovascular: RRR, no murmur, no edema Vessels: + posterior tibial pulses abnormal and + dorsalis pedis pulses abnormal Extremities: normal capillary refill (With the exception of the right second toe which is gangrenous, absent BURR BENCH HAND) Chest (Breasts): normal inspection/palpation of breasts Gastrointestinal (Abdomen): Inspection/Auscultation: abdomen normal to inspection; abdomen not distended Percussion/Palpation: no guarding Musculoskeletal: Head/Neck/Chest: normocephalic and head atraumatic Extremities: + limited ROM of extremities, + muscle atrophy and + foot abnormality (TMA noted) Skin: + ulcer, + skin tightening, + skin atrop hy, + erythema and + eschar Neurologic: plantar reflexes intact bilaterally and moves all extremities; + abnormal sensation to monofilament Psychiatric: A+Ox3, euthymic affect Results & Data Vital Signs (Past 12 Hours) Vital Signs Temp Pulse Pulse Resp BP BP Pulse Ox 07/27/24 07:20 36.5 C 78 16 156/77 H 97 07/26/24 22:35 36.7 C 75 18 139/67 98 07/26/24 21:31 85 17 150/84 H 97 07/26/24 20:18 75 23 127/63 96 O2 Del Method 07/27/24 07:20 Room Air 07/26/24 22:35 Room Air 07/26/24 21:31 Room Air 07/26/24 20:18 Room Air
--- NOTE | 2024-07-27 08:21 | Pharmacy Report ---
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 Follows with his director of clinical education/foot and ankle surgeon who evaluated him on the day of arrival (07/26/2024) - Dr. Oakes - concern for worsening of his wounds, r/o OM, on Vanc/Zosyn now. * Type 2 DM, ordered updated A1c, hyperglycemic last night, fasting at goal this morning (120mg/dl), begin with home basal and NovoLog, may need to decrease basal as inpatient as patient is also receiving prandial/correctional insulin here. PLAN FOR INPATIENT GLYCEMIC CONTROL: * Basal insulin * Lantus 20 units SQ daily * Bolus insulin * NovoLog per scale ACHS or Q6hrs while NPO * Goal Range: Low 110 mg/dL - High 140 mg/dL * Correction Factor: 30 mg/dL/unit * Nutritional / Prandial insulin per carb ratio of 1 unit per 11 grams CHO consumed
[2024-07-27] MEDS: LANTUS PER UNIT CHARGE SQ SCH (08:40)
--- NOTE | 2024-07-27 09:38 | Pharmacy Report ---
Pharmacy PK ABX Note - Date of Service July 27, 2024 - Assessment and Plan Assessment 79 year old M receiving Vancomycin and Zosyn for treatment of diabetic right foot infection. Also a possible UTI. * Day #1 of antimicrobial therapy. History of MSSA and GBS in right foot culture from February of this year. Podiatry consulted and recommending BKA/AKA vs 2 months of IV abx for osteomyelitis. MRI pending. * 24-hr Tmax of 38.3oC. No leukocytosis. SCr improved slightly to 1.02 mg/dL this AM. * Blood and urine cultures pending at this time. Plan Vancomycin * Loading dose: 1500 mg IV x 1 * Maintenance dose: 1500 mg IV every 24 hours * Regimen is predicted to achieve target AUC/OLIVERIO of 400-600 mg/L.hr * Random level ordered for: 07/29/24 Zosyn * 4.5 g IV every 8 hours Pharmacy will continue to follow and will adjust dose/frequency as necessary. Thank you. Pharmacy has transitioned to AUC monitoring for vancomycin. AUC/OLIVERIO is the preferred PK/PD target and is associated with decreased risk of nephrotoxicity compared to traditional trough targets.
[2024-07-27 09:51] LABS: A calco-baum cmplx NotReported Not Detected (NotDetected); Bact fragilis Not Reported Not Detected (NotDetected); Blood Culture Id Panel See PCR Comment (NotDetected); C auris Not Reported Not Detected (NotDetected); Calbicans Not Reported Not Detected (NotDetected); Candida glabrata Not Reported Not Detected (NotDetected); Candida krusei Not Reported Not Detected (NotDetected); Cneoformans/gatti Not Reported Not Detected (NotDetected); Cparapsilosis Not Reported Not Detected (NotDetected); Ctropicalis Not Reported Not Detected (NotDetected); E cloacae compx Not Reported Not Detected (NotDetected); Efaecalis Not Reported Not Detected (NotDetected); Efaecium Not Reported Not Detected (NotDetected); Enterobacterales Not Reported Not Detected (NotDetected); Escherichia coli Not Reported Not Detected (NotDetected); H influenzae Not Reported Not Detected (NotDetected); K aerogenes Not Reported Not Detected (NotDetected); Koxytoca Not Reported Not Detected (NotDetected); Kpneumoniae grp Not Reported Not Detected (NotDetected); Lmonocyt Not Reported Not Detected (NotDetected); N meningitidis Not Reported Not Detected (NotDetected); P aeruginosa Not Reported Not Detected (NotDetected); Proteus spp Not Reported Not Detected (NotDetected); Salmonella spp Not Reported Not Detected (NotDetected); Staph lugdunensis Not Reported Not Detected (NotDetected); Staph spp. Not Reported DETECTED (NotDetected); Staphaureus Not Reported DETECTED (NotDetected); Staphepi Not Reported Not Detected (NotDetected); Staphylococcus spp. DETECTED (NotDetected); Stenmaltophilia Not Reported Not Detected (NotDetected); Strep agal(GrpB) Not Reported Not Detected (NotDetected); Strep pneum Not Reported Not Detected (NotDetected); Strep pyog (GrpA) Not Reported Not Detected (NotDetected); Strep spp Not Reported Not Detected (NotDetected)
[2024-07-27 10:01] LABS: mecAC+MREJ Resistant Gene MRSA DETECTED (NotDetected)
[2024-07-27] MEDS: METOPROLOL TARTRATE 100 MG TAB PO SCH (10:41)
[2024-07-27] MEDS: THIAMINE HCL 100 MG TAB PO SCH (10:41)
[2024-07-27] MEDS: POTASSIUM CHLORIDE CRTAB 20 MEQ TABCR PO SCH (10:41)
[2024-07-27] MEDS: SERTRALINE HCL 50 MG TABLET PO SCH (10:41)
--- NOTE | 2024-07-27 11:25 | Orthopedic Consultation ---
Date of Consultation July 27, 2024 Assessment & Plan (1) Open wound of right foot with complication: - Patient does have noted foot wounds around the transmetatarsal amputation site with purulent drainage. - Recommend continued broad-spectrum IV antibiotics with tailoring as able based on culture and sensitivity results - At this time the patient has had previous vascular surgery in the area of potential below-knee amputation site, we will defer further discussion and potential for any amputation to vascular surgery given that he likely has stents and/or vascular grafts in the potential region of an amputation. - Patient may continue to weight-bear as tolerated on the right heel - Recommend dressing changes per podiatry desires - Recommend vascular surgery consultation - Agree with recommendation for right foot MRI to evaluate for osteomyelitis - Patient was seen and evaluated with Dr. Serna Supervising Physician Co-Signing Physician Notes I saw and examined the patient, reviewed his x-rays and chart, formulated the above plan, and agree with the note. Patient's had recent vascular surgery including bypass with a incision on his medial lower leg. Does not need an urgent below-knee amputation ss he is not septic, but he does need to follow-up with Dr. Snow to discuss BKA being done on an elective basis. In the interim recommend broad-spectrum IV antibiotics and wound care as per podiatry. Ortho pedic surgery will sign off. 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 He was evaluated in the emergency department and admitted to the hospital for cellulitis and weakness. He follows with Dr. Oakes from podiatry for previous transmetatarsal amputation performed on 03/07/2024. He has developed some ulceration and drainage from the residual limb near the amputation site. We were asked to evaluate the patient for possible amputation needs. The patient does also have a history of right femoral to posterior tibial in situ bypass in February [address] Snow. Allergies Allergy/AdvReac Type Severity Reaction Status Date / Time No Known Allergies Allergy Verified 07/26/24 19:07 Home Medications Medication Instructions Recorded Confirmed Type acetaminophen 325 mg tablet 650 mg (2 x 325 mg) PO Q4H PRN 03/13/24 07/26/24 Rx pain #30 tabs bismuth tribrom-petrolatum,wh 4" X #100 ea 04/18/24 04/18/24 Rx 4" bandage (Xeroform Petrolatum Dressing) tamsulosin 0.4 mg capsule (Flomax) 0.4 mg PO HS #90 caps 04/18/24 07/26/24 Rx blood-glucose sensor (Dexcom G7 #3 ea 04/30/24 Rx Sensor device) blood-glucose,paper sealer,cont #1 ea 04/30/24 Rx (Dexcom G7 Grease And Tallow Pumper) thiamine HCl (vitamin B1) 100 mg 100 mg PO BID 05/07/24 07/26/24 History tablet metoprolol tartrate 100 mg tablet 100 mg PO BID #180 tabs 05/14/24 07/26/24 Rx potassium chloride 20 mEq 20 meq PO BID #180 tabs 05/14/24 07/26/24 Rx tablet,extended release(part/cryst) sertraline 50 mg tablet 50 mg PO BID #180 tabs 05/14/24 07/26/24 Rx triamterene 75 1 tab PO DAILY #90 tabs 05/14/24 07/26/24 Rx mg-hydrochlorothiazide 50 mg tablet insulin glargine-yfgn 100 unit/mL 20 unit (0.2 mL) subcut QAM #15 mL 06/21/24 07/26/24 Rx (3 mL) subcutaneous pen (Semglee (insulin glargine-yfgn) Pen) Patient History Medical History Paroxysmal SVT (supraventricular tachycardia) 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 Prolonged QT interval Surgical History S/P femoral-tibial bypass S/P vascular surgery Social History Smoking Status: Current every day smoker Tobacco Type: Cigarettes Age Started Using Tobacco: 19; Age Quit Using Tobacco: 78; packs per day: 1; Cigarettes Per Day: 3-5 - "cut way back since my foot"; Second Hand Exposure: No; Do You Dip or Chew Tobacco: No; Tobacco Cessation Education Requested by Patient: No Hx Alcohol Use: No Hx Substance Use: No Preferred Language: [place] Communication Ability: Effective Tent Finisher Required: No Beliefs That Will Affect Care: None Current Living Situation: Alone Current Living Situation Comment: patient lives alone, states son does live close by Other Information That Helps Us Care for You: No Feels Safe at Home: Yes Safety Concerns: Feels Safe At This Time Assistive Devices: Cane, Walker and Wheelchair Review of Systems Constitutional: Lethargy Musculoskeletal: Pain and drainage from the right residual foot near amputation site. Physical Exam Musculoskeletal: Right lower extremity exam: -Skin of the right lower extremity has m arked erythema, thinning, dysvascular appearance along the anterior tibia. Well-healed transmetatarsal amputation surgical incision site, however there are multiple ulcerations which are draining purulent appearing material noted along the lateral aspect of the foot near the fifth metatarsal head as well as on the dorsal aspect of the foot near the space between the 1st and 2nd metatarsals. - Capillary refill less than 2 seconds a bout the skin of the right foot - No palpable fluid collections apprecia harini in the right foot - Patient is able to actively plantar an d dorsiflex his right ankle - Noted well-healed incision along the m edial aspect of the proximal tibia from previous vascular procedure Results & Data Vital Signs (Past 12 Hours) Vital Signs Temp Pulse Resp BP Pulse Ox O2 Del Method 07/27/24 07:20 36.5 C 78 16 156/77 H 97 Room Air Diagnostic Findings AP, oblique, lateral x-rays of the right foot obtained 07/26/2024 [facility] independently reviewed and interpreted by myself and Dr. Serna demonstrate previous site of transmetatarsal amputation, no acute fracture or dislocation is noted. There is noted spurring along the calcaneus and talus. No evidence of obvious bony erosions is appreciated on x-ray images. (1) Open wound of right foot with complication Encounter type: initial encounter Qualified Code(s): S91.301A - Unspecified open wound, right foot, initial encounter
--- NOTE | 2024-07-27 11:37 | Electrocardiogram Report ---
Test Reason : Blood Pressure : */* mmHG Vent. Rate : 95 BPM Atrial Rate : 95 BPM P-R Int : 136 ms QRS Dur : 114 ms QT Int : 370 ms P-R-T Axes : 22 38 -44 degrees QTcB Int : 464 ms Normal sinus rhythm Possible Inferior infarct (cited on or before 04-Mar-2024) Abnormal ECG When compared with ECG of 04-Mar-2024 13:54, T wave inversion less evident in Lateral leads Confirmed by Mason Gold ([id number]) on 07/27/2024 11:36:39 AM Referred By: Donato Oakes Confirmed By: Mason Gold
--- NOTE | 2024-07-27 11:44 | Hospitalist Progress Note ---
Date of Service July 27, 2024 Assessment & Plan (1) Acute osteomyelitis of right foot: (2) Cellulitis: (3) Type 2 diabetes mellitus with diabetic polyneuropathy: (4) Benign essential hypertension: (5) Hyperlipidemia: (6) Depression: (7) BPH (benign prostatic hyperplasia): (8) S/P femoral-tibial bypass: (9) PVD (peripheral vascular disease): (10) MRSA bacteremia: Plan 79-year-old male with past medical history of type 2 diabetes mellitus with polyneuropathy, peripheral vascular disease status post right femoropopliteal bypass as well as 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 #Right lower extremity cellulitis/osteomyelitis #MRSA bacteremia Podiatry saw the patient, recommended vascular surgery consult and evaluation for right AKA/BKA along with ID consult Orthopedic saw the patient, recommended continue IV antibiotics, no emergent need for AKA/BKA and recommended MRI and vascular surgery consult MRI and DIONI ordered by podiatry service Continue IV vancomycin and IV Zosyn Blood culture initial screen showing MRSA Check repeat blood cultures in a.m. ID consult Check 2D echo #Elevated troponin, likely demand ischemia in setting of infection #Essential hypertension #Hyperlipidemia #History of peripheral vascular disease status post right femoropopliteal bypass EKG without any ischemic changes, patient without chest pain or shortness of breath Suspect troponin is from demand ischemia Check 2D echo Vascular surgery consulted Continue metoprolol Check lipid panel in a.m. #Thrombocytopenia Likely secondary to infection Monitor platelet count #Type 2 diabetes mellitus Check A1c Pharmacy consulted for glycemic management #BPH Continue tamsulosin #Depression Continue sertraline #Hypokalemia Hold Dyazide diuretic Potassium replacement CODE STATUS: Full code DVT prophylaxis: Lovenox 40 mg subcutaneous nightly Care plan discussed with patient and nursing staff Admission and Anticipated Discharge Date Admission Date: July 26, 2024 Subjective Patient seen and examined H&P reviewed Labs reviewed Radiology reviewed Patient currently denies any fever, chills, chest pain or shortness of breath. Denies any pain He denies any nausea, vomiting abdominal pain He is in agreement with getting MRI but would like to hold off till tomorrow morning He spoke with orthopedic and podiatry earlier today He lives by himself, ambulates with a walker Physical Exam Physical Exam: General: No acute distress Psych: Awake and alert HEENT: Anicteric sclera, moist oral mucosa CVS: Regular rate and rhythm Lungs: Bilateral air entry, no wheezing noted Abdomen: Soft, nontender, no rebound, no guarding Ext: Right lower extremity in dressing Neuro: No focal motor deficits noted Results & Data Results & Data Vital Signs (Past 12 Hours) Vital Signs Temp Pulse Resp BP Pulse Ox O2 Del Method 07/27/24 07:20 36.5 C 78 16 156/77 H 97 Room Air Laboratory Results 07/26/24 17:31 Aerobic Blood Culture - Pending Blood Anaerobic Blood Culture - Preliminary Gram positive cocci clusters 07/26/24 17:31 Aerobic Blood Culture - Pending Blood Anaerobic Blood Culture - Preliminary Gram positive cocci clusters 07/26/24 19:25 Urine Culture - Pending Urine,Clean Catch 07/27/24 07/27/24 07/26/24 07:34 05:47 22:52 WBC 4.49 L RBC 4.77 Hgb 12.3 L Hct 38.5 L MCV 80.7 MCH 25.8 MCHC 31.9 L RDW Std Deviation 49.7 H RDW Coeff of Neftali 16.8 H Plt Count 100 L MPV 9.2 L Immature Gran % (Auto) Neut % (Auto) Lymph % (Auto) [place] % (Auto) Eos % (Auto) Baso % (Auto) Neut # (Auto) Lymph # (Auto) [place] # (Auto) Eos # (Auto) Baso # (Auto) Immature Gran # (Auto) PT INR APTT PTT Ratio Sodium 139 Potassium 3.4 L Chloride 111 H Carbon Dioxide 22 Anion Gap 6 BUN 19 Creatinine 1.02 Est Cr Clr Drug Dosing 59.7 eGFR 75.23 BUN/Creatinine Ratio 18.6 Glucose 120 H POC Glucose 131 H 227 H Lactate Calcium 8.5 L Magnesium Total Bilirubin AST ALT Alkaline Phosphatase Troponin I High Sens 38.8 H Total Protein Albumin Globulin Albumin/Globulin Ratio Procalcitonin Urine Color Urine Appearance Urine pH Ur Specific [place] Urine Protein Urine Glucose (UA) Urine Ketones Urine Blood Urine Nitrite Urine Bilirubin Urine Urobilinogen Ur Leukocyte Esterase Urine WBC (Auto) Urine RBC (Auto) U Hyaline Cast (Auto) U Epithel Cells (Auto) Urine Bacteria (Auto) Urine Comment Adenovirus (PCR) B. pertussis DNA (PCR) B.parapertussis DNA PCR C. pneumoniae DNA (PCR) Coronavirus OC43 (PCR) Coronavirus HKU1 (PCR) Coronavirus 229E (PCR) SARS-CoV-2 (PCR) Coronavirus NL63 (PCR) Human Metapneumovir PCR Influenza Type A (PCR) Influenza Type B (PCR) M. pneumoniae (PCR) Parainfluenza 1 (PCR) Parainfluenza 2 (PCR) Parainfluenza 3 (PCR) Parainfluenza 4 (PCR) RSV (PCR) Entero/Rhino (PCR) Staphylococcus sp PCR Staph aureus (PCR) mecA/C & MREJ Resist Gene Bld Cult ID Panel PCR 07/26/24 07/26/24 07/26/24 19:28 19:25 17:41 WBC RBC Hgb Hct MCV MCH MCHC RDW Std Deviation RDW Coeff of Neftali Plt Count MPV Immature Gran % (Auto) Neut % (Auto) Lymph % (Auto) [place] % (Auto) Eos % (Auto) Baso % (Auto) Neut # (Auto) Lymph # (Auto) [place] # (Auto) Eos # (Auto) Baso # (Auto) Immature Gran # (Auto) PT INR APTT PTT Ratio Sodium Potassium Chloride Carbon Dioxide Anion Gap BUN Creatinine Est Cr Clr Drug Dosing eGFR BUN/Creatinine Ratio Glucose POC Glucose Lactate 1.0 Calcium Magnesium Total Bilirubin AST ALT Alkaline Phosphatase Troponin I High Sens 31.2 H Total Protein Albumin Globulin Albumin/Globulin Ratio Procalcitonin Urine Color Yellow Urine Appearance Clear Urine pH 5.5 Ur Specific [place] 1.016 Urine Protein 1+ H Urine Glucose (UA) Negative Urine Ketones Trace H Urine Blood 1+ H Urine Nitrite Negative Urine Bilirubin Negative Urine Urobilinogen Negative Ur Leukocyte Esterase 2+ H Urine WBC (Auto) 21-50 H Urine RBC (Auto) 0-2 U Hyaline Cast (Auto) 3-5 H U Epithel Cells (Auto) 0-2 Urine Bacteria (Auto) 1+ H Urine Comment Adenovirus (PCR) Not Detected B. pertussis DNA (PCR) Not Detected B.parapertussis DNA PCR Not Detected C. pneumoniae DNA (PCR) Not Detected Coronavirus OC43 (PCR) Not Detected Coronavirus HKU1 (PCR) Not Detected Coronavirus 229E (PCR) Not Detected SARS-CoV-2 (PCR) Not Detected Coronavirus NL63 (PCR) Not Detected Human Metapneumovir PCR Not Detected Influenza Type A (PCR) Not Detected Influenza Type B (PCR) Not Detected M. pneumoniae (PCR) Not Detected Parainfluenza 1 (PCR) Not Detected Parainfluenza 2 (PCR) Not Detected Parainfluenza 3 (PCR) Not Detected Parainfluenza 4 (PCR) Not Detected RSV (PCR) Not Detected Entero/Rhino (PCR) Not Detected Staphylococcus sp PCR Staph aureus (PCR) mecA/C & MREJ Resist Gene Bld Cult ID Panel PCR 07/26/24 17:31 WBC 7.60 RBC 5.03 Hgb 13.1 L Hct 40.8 L MCV 81.1 MCH 26.0 MCHC 32.1 RDW Std Deviation 50.1 H RDW Coeff of Neftali 17.0 H Plt Count 133 MPV 9.3 L Immature Gran % (Auto) 0.5 Neut % (Auto) 86.7 Lymph % (Auto) 5.9 [place] % (Auto) 6.6 Eos % (Auto) 0.0 Baso % (Auto) 0.3 Neut # (Auto) 6.59 H Lymph # (Auto) 0.45 L [place] # (Auto) 0.50 Eos # (Auto) 0.00 Baso # (Auto) 0.02 Immature Gran # (Auto) 0.04 PT 11.4 INR 1.1 APTT 31 PTT Ratio 1.2 Sodium 133 L Potassium 3.9 Chloride 100 Carbon Dioxide 23 Anion Gap 10 BUN 17 Creatinine 1.11 Est Cr Clr Drug Dosing 54.8 eGFR 67.97 BUN/Creatinine Ratio 15.3 Glucose 148 H POC Glucose Lactate 2.1 H* Calcium 9.8 Magnesium 1.9 Total Bilirubin 1.2 H AST 14 ALT 8 Alkaline Phosphatase 82 Troponin I High Sens 28.3 H Total Protein 8.1 Albumin 3.8 Globulin 4.3 H Albumin/Globulin Ratio 0.9 Procalcitonin 0.35 Urine Color Urine Appearance Urine pH Ur Specific [place] Urine Protein Urine Glucose (UA) Urine Ketones Urine Blood Urine Nitrite Urine Bilirubin Urine Urobilinogen Ur Leukocyte Esterase Urine WBC (Auto) Urine RBC (Auto) U Hyaline Cast (Auto) U Epithel Cells (Auto) Urine Bacteria (Auto) Urine Comment Adenovirus (PCR) B. pertussis DNA (PCR) B.parapertussis DNA PCR C. pneumoniae DNA (PCR) Coronavirus OC43 (PCR) Coronavirus HKU1 (PCR) Coronavirus 229E (PCR) SARS-CoV-2 (PCR) Coronavirus NL63 (PCR) Human Metapneumovir PCR Influenza Type A (PCR) Influenza Type B (PCR) M. pneumoniae (PCR) Parainfluenza 1 (PCR) Parainfluenza 2 (PCR) Parainfluenza 3 (PCR) Parainfluenza 4 (PCR) RSV (PCR) Entero/Rhino (PCR) Staphylococcus sp PCR DETECTED A Staph aureus (PCR) DETECTED A mecA/C & MREJ Resist Gene MRSA DETECTED A* Bld Cult ID Panel PCR See PCR Comment Diagnostic Findings Chest X-Ray 07/26/24 17:01 Chest radiograph, one view History: Sepsis Comparison: None Findings: Single AP view of the chest performed. No focal consolidation or pleural effusion. No pneumothorax. The cardiomediastinal silhouette is within normal limits. Normal pulmonary vascularity. No evidence for lymphadenopathy. No visualized bony or soft tissue abnormality. Impression: Normal chest radiograph Electronically signed by Ortega Marino 07-26-2024 5:51 PM Foot X-Ray 07/26/24 17:11 Study: Right foot 3 views History: Sepsis Comparison: None Findings: There is no acute fracture or dislocation. Alignment is anatomic. Joint spaces are well maintained. Amputation changes across all digits at the proximal metatarsals. Overlying soft tissue reconstruction, appears grossly unremarkable. Calcaneal enthesophytes. Impression: No acute bony abnormality. Amputation changes.Chest radiograph, one view History: Chest pain Comparison: Findings: Single AP view of the chest performed. No focal consolidation or pleural effusion. No pneumothorax. The cardiomediastinal silhouette is within normal limits. Normal pulmonary vascularity. No evidence for lymphadenopathy. No visualized bony or soft tissue abnormality. Impression: Normal chest radiograph Electronically signed by Ortega Marino 07-26-2024 5:51 PM PG Care Time/CCT Total # of Minutes Spent Total Time Spent with Patient: Total time spent is greater than 50% in coordination of care (as documented) at patient's floor/unit and/or counseling patient: Coding Level of Care Code 29446 SUB INP/OBS CARE 3/50MIN Diagnoses Acute osteomyelitis of right foot M86.171 Cellulitis L03.115 Laterality: right Site of cellulitis: extremity Site of cellulitis of extremity: lower extremity Type 2 diabetes mellitus with diabetic polyneuropathy, with long-term current use of insulin E11.42; Z79.4 Diabetes mellitus [facility] insulin use: with press tender long goods use Benign essential hypertension I10 Mixed hyperlipidemia E78.2 Hyperlipidemia type: mixed hyperlipidemia Persistent depressive disorder F34.1 Depression Type: persistent depressive disorder Benign prostatic hyperplasia with lower urinary tract symptoms, symptom details unspecified N40.1 Lower urinary tract symptom presence: symptoms present Lower urinary tract symptom detail: unspecified S/P femoral-tibial bypass Z98.890 PVD (peripheral vascular disease) I73.9 MRSA bacteremia R78.81; B95.62 (2) Cellulitis Laterality: right Site of cellulitis: extremity Site of cellulitis of extremity: lower extremity Qualified Code(s): L03.115 - Cellulitis of right lower limb (3) 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 mellitus press tender long goods insulin use: with press tender long goods use Qualified Code(s): E11.42 - Type 2 diabetes mellitus with diabetic polyneuropathy; Z79.4 - terminologist (current) use of insulin (5) Hyperlipidemia Hyperlipidemia type: mixed hyperlipidemia Qualified Code(s): E78.2 - Mixed hyperlipidemia (6) Depression Depression Type: persistent depressive disorder Qualified Code(s): F34.1 - Dysthymic disorder (7) BPH (benign prostatic hyperplasia) Lower urinary tract symptom presence: symptoms present Lower urinary tract symptom detail: unspecified Qualified Code(s): N40.1 - Benign prostatic hyperplasia with lower urinary tract symptoms
--- NOTE | 2024-07-27 12:11 | Ultrasound Report ---
Clinical history: Nonhealing foot wound Technique: Grayscale, color Doppler and spectral waveform analysis imaging of the right leg arteries was performed No prior examination is available for comparison Findings: There is a patent bypass graft extending from the right common femoral artery extending to the posterior tibial artery. Monophasic waveforms are seen within it. The superficial femoral artery and proximal popliteal artery appear to be occluded. There is some retrograde flow within the distal popliteal artery and proximal posterior tibial artery before the anastomosis with the graft. Peak systolic velocities in centimeters per second are as follows: Right leg: HVAC MAINTENANCE TECHNICIAN 152 Proximal bypass graft 440 Mid bypass graft 148 Distal bypass graft 175 INTERFACE CONTROL OFFICER 346 There is a 4 x 3 x 1.7 cm right inguinal lymph node with a fatty hilum Impression: 1. Right leg bypass graft with elevated velocities, concerning for stenosis. Specifically, there are suspected stenoses within the proximal portion of the graft and also within the posterior tibial artery at the distal anastomotic point 2. Right inguinal adenopathy, nonspecific in nature ACT 112: Positive. There are findings on this exam that require communication between the performing entity and the patient following Patient Test Result Information Act ([place] ACT 112) guidelines. Electronically signed by Tevin Mtz 07-27-2024 12:11 PM
--- NOTE | 2024-07-27 18:13 | Communication Note ---
Date of Service: July 27, 2024 ID was consulted I spoke with LIO Montero on-call: Formal ID consult will be done on 07/29/2024 Patient without any hardware Patient denies any pain. He denies any back pain or spinal pain. On exam, C-spine, LS-spine and thoracic spine palpated: No tenderness on palpation Reviewed case with ID on-call: Recommended continue IV vancomycin plus IV Zosyn, check 2D echo, check repeat blood cultures in a.m.
--- NOTE | 2024-07-27 19:01 | Magnetic Resonance Report ---
MRI foot without contrast History: Amputation. Rule out osteomyelitis Comparison: Radiograph from 07/26/2024 Technique: Multiphase, multisequence MRI of the right foot without contrast Findings: Amputation changes throughout the proximal metatarsals of all the digits. Overlying soft tissue reconstruction appears unremarkable. There is no focal fluid collection. There is edema within the plantar musculature. No bony signal abnormality to suggest osteomyelitis. Degenerative changes, including scattered subchondral cystic change about the ankle noted. Impression: No evidence for osteomyelitis. Electronically signed by Ortega Marino 07-27-2024 7:00 PM
[2024-07-27] MEDS: TAMSULOSIN HCL 0.4 MG CAP PO SCH (20:34)
[2024-07-27] MEDS: ACETAMINOPHEN 500 MG TAB PO PRN (23:41)
[2024-07-28 06:37] LABS: Basophils # (auto) 0.03 K/uL (0.00-0.20); Basophils % (auto) 0.6 %; Eosinophils # (auto) 0.22 K/uL (0.00-0.50); Eosinophils % (auto) 4.1 %; Hematocrit (blood only) 39.2 % (42.0-52.0); Hemoglobin 12.4 g/dl (14.0-18.0); Immature Granulocytes # (auto) 0.01 K/uL (0.01-0.20); Immature Granulocytes % (auto) 0.2 %; Lymphocytes # (auto) 0.76 K/uL (1.20-3.40); Lymphocytes % (auto) 14.2 %; Mean Corpuscular Hemoglobin 25.7 pg (25.0-34.0); Mean Corpuscular Hgb Conc 31.6 g/dL (32.0-36.0); Mean Corpuscular Volume 81.2 fL (80.0-100.0); Mean Platelet Volume 9.3 fL (9.4-12.4); Monocytes # (auto) 0.57 K/uL (0.11-0.59); Monocytes % (auto) 10.7 %; Neutrophils # (auto) 3.76 K/uL (1.40-6.50); Neutrophils % (auto) 70.2 %; Platelet Count 113 K/uL (130-400); RDW Standard Deviation 50.4 fL (36.4-46.3); Red Blood Count 4.83 M/uL (4.70-6.10); White Blood Count 5.35 K/ul (4.8-10.8)
[2024-07-28 07:20] LABS: Albumin Globulin Ratio 0.9 (0.9-2); Albumin Level 3.2 gm/dl (3.4-5.0); BUN Creatinine Ratio 19.6 (10-20); Bilirubin,Total 0.5 mg/dl (0.2-1.0); C Reactive Protein 12.74 mg/dl (0-0.5); Calcium 8.5 mg/dl (8.6-10.3); Chol HDL Ratio 5.8 (0-5); Creatinine Clr Calc Pharmacy 66.2 ml/min; Globulin 3.4 gm/dl (2.5-4.0); Potassium 3.4 mmol/L (3.5-5.1); Total Protein 6.6 gm/dl (6.0-8.3)
[2024-07-28 07:23] LABS: Folate (Folic Acid),Ser orPlas 9.27 ng/ml (>5.38)
[2024-07-28 07:50] LABS: Estimated Average Glucose 163 mg/dl; Hemoglobin A1C 7.3 % (4.5-5.6)
[2024-07-28] MEDS: LANTUS PER UNIT CHARGE SQ SCH (09:42)
[2024-07-28] MEDS: POTASSIUM CHLORIDE CRTAB 20 MEQ TABCR PO SCH (09:45)
[2024-07-28] MEDS: LOSARTAN POTASSIUM 25 MG TAB PO SCH (09:45)
--- NOTE | 2024-07-28 10:53 | Hospitalist Progress Note ---
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 #Right lower extremity cellulitis/osteomyelitis #MRSA bacteremia Podiatry saw the patient, recommended vascular surgery consult and evaluation for right AKA/BKA along with ID consult Orthopedic saw the patient, recommended continue IV antibiotics, no emergent need for AKA/BKA and recommended vascular surgery consult MRI did not show any evidence of osteomyelitis although podiatry clinically feels patient has osteomyelitis ID has been consulted: Awaiting official consult and recommendations 2D echo done: Results pending Blood cultures from admission on 07/26/2024 are showing Staph aureus, suspicion of MRSA: Final report pending Repeat blood cultures from 07/28/2024: Results pending Continue IV vancomycin and IV Zosyn (day 2) Pharmacy managing vancomycin dosing Arterial duplex shows concern for stenosis in the right lower extremity Awaiting vascular surgery consult #Elevated troponin, likely demand ischemia in setting of infection #Essential hypertension #Hyperlipidemia #History of peripheral vascular disease status post right femoropopliteal bypass EKG without any ischemic changes, patient without chest pain or shortness of breath Suspect troponin is from demand ischemia 2D echo done: Results pending LDL is 65 Total cholesterol is 110 Vascular surgery consulted Continue metoprolol. Start losartan 25 mg p.o. daily for better blood pressure control Monitor vital signs #Thrombocytopenia Likely secondary to infection Monitor platelet count #Type 2 diabetes mellitus A1c 7.3 Pharmacy managing glycemic control #BPH Continue tamsulosin #Depression Continue sertraline #Hypokalemia Hold Dyazide diuretic Potassium replacement #Iron deficiency anemia Iron level is 14 Percent saturation is fine B12 is 221 Folate is 9.27 Start iron supplementation Vitamin B12 supplementation Outpatient follow-up with PCP for further investigations including EGD/colonoscopy CODE STATUS: Full code DVT prophylaxis: Lovenox 40 mg subcutaneous nightly Care plan discussed with patient and nursing staff Admission and Anticipated Discharge Date Admission Date: July 27, 2024 Subjective Patient seen and examined Sitting up in a chair today, reports good improvement in appetite, denies any chest pain or shortness of breath Denies any fever or chills Overall feels better Denies any diarrhea, patient states she had 1 soft bowel movement today Denies any nausea, vomiting or abdominal pain Physical Exam Physical Exam: General: No acute distress Psych: Awake and alert HEENT: Anicteric sclera, moist oral mucosa CVS: Regular rate and rhythm Lungs: Bilateral air entry, no wheezing noted Abdomen: Soft, nontender, no rebound, no guarding Ext: Right lower extremity in dressing Neuro: No focal motor deficits noted Results & Data Results & Data Vital Signs (Past 12 Hours) Vital Signs Temp Pulse Resp BP Pulse Ox O2 Del Method 07/28/24 07:26 37.0 C 63 16 156/70 H 98 Room Air 07/28/24 05:05 148/70 H Laboratory Results Laboratory Results - last 24 hr 07/27/24 07/27/24 07/27/24 11:45 16:42 20:25 WBC RBC Hgb Hct MCV MCH MCHC RDW Std Deviation RDW Coeff of Neftali Plt Count MPV Immature Gran % (Auto) Neut % (Auto) Lymph % (Auto) Powell % (Auto) Eos % (Auto) Baso % (Auto) Neut # (Auto) Lymph # (Auto) Powell # (Auto) Eos # (Auto) Baso # (Auto) Immature Gran # (Auto) Sodium Potassium Chloride Carbon Dioxide Anion Gap BUN Creatinine Est Cr Clr Drug Dosing eGFR BUN/Creatinine Ratio Glucose POC Glucose 120 H 133 H 85 Estimat Average Glucose Hemoglobin A1c Calcium Magnesium Iron TIBC Transferrin Transferrin % Sat Total Bilirubin AST ALT Alkaline Phosphatase C-Reactive Protein Total Protein Albumin Globulin Albumin/Globulin Ratio Triglycerides Cholesterol LDL Cholesterol, Calc VLDL Cholesterol, Calc HDL Cholesterol Cholesterol/HDL Ratio Vitamin B12 Folate 07/28/24 07/28/24 06:08 07:36 WBC 5.35 RBC 4.83 Hgb 12.4 L Hct 39.2 L MCV 81.2 MCH 25.7 MCHC 31.6 L RDW Std Deviation 50.4 H RDW Coeff of Neftali 17.0 H Plt Count 113 L MPV 9.3 L Immature Gran % (Auto) 0.2 Neut % (Auto) 70.2 Lymph % (Auto) 14.2 Powell % (Auto) 10.7 Eos % (Auto) 4.1 Baso % (Auto) 0.6 Neut # (Auto) 3.76 Lymph # (Auto) 0.76 L Powell # (Auto) 0.57 Eos # (Auto) 0.22 Baso # (Auto) 0.03 Immature Gran # (Auto) 0.01 Sodium 139 Potassium 3.4 L Chloride 109 H Carbon Dioxide 23 Anion Gap 7 BUN 18 Creatinine 0.92 Est Cr Clr Drug Dosing 66.2 eGFR 85.14 BUN/Creatinine Ratio 19.6 Glucose 102 H POC Glucose 91 Estimat Average Glucose 163 Hemoglobin A1c 7.3 H Calcium 8.5 L Magnesium 2.0 Iron 14 L TIBC 260 Transferrin 186 L Transferrin % Sat 5 L Total Bilirubin 0.5 D AST 25 ALT 11 Alkaline Phosphatase 58 C-Reactive Protein 12.74 H Total Protein 6.6 Albumin 3.2 L Globulin 3.4 Albumin/Globulin Ratio 0.9 Triglycerides 128 Cholesterol 110 LDL Cholesterol, Calc 65 VLDL Cholesterol, Calc 26 HDL Cholesterol 19 Cholesterol/HDL Ratio 5.8 H Vitamin B12 221 Folate 9.27 Diagnostic Findings Duplex Scan Lower Extremity Artery 07/27/24 07:54 Clinical history: Nonhealing foot wound Technique: Grayscale, color Doppler and spectral waveform analysis imaging of the right leg arteries was performed No prior examination is available for comparison Findings: There is a patent bypass graft extending from the right common femoral artery extending to the posterior tibial artery. Monophasic waveforms are seen within it. The superficial femoral artery and proximal popliteal artery appear to be occluded. There is some retrograde flow within the distal popliteal artery and proximal posterior tibial artery before the anastomosis with the graft. Peak systolic velocities in centimeters per second are as follows: Right leg: CORRECTIONAL LIEUTENANT 152 Proximal bypass graft 440 Mid bypass graft 148 Distal bypass graft 175 DIRECTOR OF DANCE 346 There is a 4 x 3 x 1.7 cm right inguinal lymph node with a fatty hilum Impression: 1. Right leg bypass graft with elevated velocities, concerning for stenosis. Specifically, there are suspected stenoses within the proximal portion of the graft and also within the posterior tibial artery at the distal anastomotic point 2. Right inguinal adenopathy, nonspecific in nature ACT 112: Positive. There are findings on this exam that require communication between the performing entity and the patient following Patient Test Result Information Act ([place] ACT 112) guidelines. Electronically signed by Tevin Mtz 07-27-2024 12:11 PM Foot MRI 07/27/24 14:55 MRI foot without contrast History: Amputation. Rule out osteomyelitis Comparison: Radiograph from 07/26/2024 Technique: Multiphase, multisequence MRI of the right foot without contrast Findings: Amputation changes throughout the proximal metatarsals of all the digits. Overlying soft tissue reconstruction appears unremarkable. There is no focal fluid collection. There is edema within the plantar musculature. No bony signal abnormality to suggest osteomyelitis. Degenerative changes, including scattered subchondral cystic change about the ankle noted. Impression: No evidence for osteomyelitis. Electronically signed by Ortega Marino 07-27-2024 7:00 PM PG Care Time/CCT Total # of Minutes Spent Total Time Spent with Patient: Total time spent is greater than 50% in coordination of care (as documented) at patient's floor/unit and/or counseling patient: Coding Level of Care Code 71912 SUB INP/OBS CARE 3/50MIN Diagnoses Acute osteomyelitis of right foot M86.171 Cellulitis L03.115 Laterality: right Site of cellulitis: extremity Site of cellulitis of extremity: lower extremity Type 2 diabetes mellitus with diabetic polyneuropathy, with long-term current use of insulin E11.42; Z79.4 Diabetes mellitus watermelon harvesting supervisor insulin use: with fci use Benign essential hypertension I10 Mixed hyperlipidemia E78.2 Hyperlipidemia type: mixed hyperlipidemia Persistent depressive disorder F34.1 Depression Type: persistent depressive disorder Benign prostatic hyperplasia with lower urinary tract symptoms, symptom details unspecified N40.1 Lower urinary tract symptom detail: unspecified Lower urinary tract symptom presence: symptoms present S/P femoral-tibial bypass Z98.890 PVD (peripheral vascular disease) I73.9 MRSA bacteremia R78.81; B95.62 (2) Cellulitis Laterality: right Site of cellulitis: extremity Site of cellulitis of extremity: lower extremity Qualified Code(s): L03.115 - Cellulitis of right lower limb (3) 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 mellitus fci insulin use: with watermelon harvesting supervisor use Qualified Code(s): E11.42 - Type 2 diabetes mellitus with diabetic polyneuropathy; Z79.4 - intermediate manager (current) use of insulin (5) Hyperlipidemia Hyperlipidemia type: mixed hyperlipidemia Qualified Code(s): E78.2 - Mixed hyperlipidemia (6) Depression Depression Type: persistent depressive disorder Qualified Code(s): F34.1 - Dysthymic disorder (7) BPH (benign prostatic hyperplasia) Lower urinary tract symptom detail: unspecified Lower urinary tract symptom presence: symptoms present Qualified Code(s): N40.1 - Benign prostatic hyperplasia with lower urinary tract symptoms
--- NOTE | 2024-07-28 10:55 | XCELERA ---
[id number]
[2024-07-28] MEDS: CYANOCOBALAMIN 1000 MCG/ML VIAL IM SCH (11:34)
[2024-07-28] MEDS: FERROUS GLUCONATE 324 MG TAB PO SCH (11:34)
[2024-07-28] MEDS: ASCORBIC ACID 500 MG TAB PO SCH (11:34)
--- NOTE | 2024-07-28 11:46 | Pharmacy Report ---
Pharmacy PK ABX Note - Date of Service July 28, 2024 - Assessment and Plan Assessment 07/28: * Day #2 of Vancomycin and Zosyn. ID has been consulted, formal consult to come Monday. * MRSA growing in blood cultures from 07/26, repeats drawn today. Foot MRI negative for osteomyelitis per radiology. TTE negative for vegetations per cardiology. * SCr continues to improve. Given MRSA in blood, would like to be more aggressive with regimen. Therefore, will empirically switch patient's va ncomycin dose today to provide q12h dosing. * Will keep level for tomorrow morning. Of note, patient did receive 1500 mg of vancomycin already this AM and will start 750 mg this evening (12 hours after AM dose). Therefore, expect level tomorrow to be slightly higher than what we can expect at steady state. 07/27: 79 year old M receiving Vancomycin and Zosyn for treatment of diabetic right foot infection. Also a possible UTI. * Day #1 of antimicrobial therapy. History of MSSA and GBS in right foot culture from February of this year. Podiatry consulted and recommending BKA/AKA vs 2 months of IV abx for osteomyelitis. MRI pending. * 24-hr Tmax of 38.3oC. No leukocytosis. SCr improved slightly to 1.02 mg/dL this AM. * Blood and urine cultures pending at this time. Plan Vancomycin * Current regimen: 1500 mg IV every 24 hours * Will empirically change to 750 mg IV every 12 hours starting this evening. This is predicted to achieve target AUC/OLIVERIO of 400-600 mg/L.hr. Predicted AUC at steady state: 489 mg/L.hr * Random level ordered for: 07/29/24 Zosyn * 4.5 g IV every 8 hours Pharmacy will continue to follow and will adjust dose/frequency as necessary. Thank you. Pharmacy has transitioned to AUC monitoring for vancomycin. AUC/OLIVERIO is the preferred PK/PD target and is associated with decreased risk of nephrotoxicity compared to traditional trough targets.
[2024-07-28 13:19] LABS: C. diff 027-NAP1-BI NEGATIVE
--- NOTE | 2024-07-28 13:21 | Orthopedic Progress Note ---
Date of Service July 28, 2024 Assessment & Plan (1) Open wound of right foot with complication: Plan: Reviewed MRI findings and duplex ultrasound findings with the patient. No indication for acute below knee amputation. Difficult to say whether any vascular surgery intervention could help this ulcer to heal. - Recommend continued broad-spectrum IV antibiotics with tailoring as able based on culture and sensitivity results - Recommend vascular surgery consult for evaluation and management. - Patient may continue to weight-bear as tolerated on the right heel - Recommend dressing changes per podiatry desires - Orthopaedics will sign off. Feel free to contact ortho with any questions/concerns. Admission and Anticipated Discharge Date Admission Date: July 27, 2024 Subjective Patient seen and examined on afternoon rounds. He had an MRI of his foot done yesterday. He worked with physical therapy and Occupational Therapy today. Per nursing had a little bit of difficulty maintaining his heel weightbearing status. He reports his foot is feeling better on the antibiotics. No fevers or chills. Physical Exam Physical Exam: Physical exam unchanged from yesterday. Still has a ulcer on the plantar lateral aspect of the transmetatarsal amputation site distally with about 1 inch of yellow drainage on his dressing which was applied yesterday. No significant erythema. Minimal swelling. Results & Data Vital Signs (Past 12 Hours) Vital Signs Temp Pulse Resp BP Pulse Ox O2 Del Method 07/28/24 08:50 Room Air 07/28/24 07:26 37.0 C 63 16 156/70 H 98 Room Air 07/28/24 05:05 148/70 H Diagnostic Findings MRI of the right foot done yesterday was independently interpreted by me. I agree with the radiologist that there is no evidence of osteomyelitis. Duplex scan of his right lower extremity done yesterday revealed evidence of possible stenosis in the graft. (1) Open wound of right foot with complication Encounter type: initial encounter Qualified Code(s): S91.301A - Unspecified open wound, right foot, initial encounter
[2024-07-28 14:56] LABS: Cdiff Antigen Positive; Cdiff Toxin A+B Negative Cdiff Toxin (Negative); Cdiff Toxin B Gene (2yr or >) Positive Cdiff Gene (Neg)
[2024-07-28] MEDS: POTASSIUM CHLORIDE CRTAB 20 MEQ TABCR PO ONE (16:55)
[2024-07-28] MEDS: VANCOMYCIN 750 MG in SODIUM CHLORIDE 0.9% 250 ML IV SCH (16:57)
[2024-07-29] MEDS: VANCOMYCIN LEVEL ONE (04:48)
[2024-07-29 04:50] LABS: Hematocrit (blood only) 35.5 % (42.0-52.0); Hemoglobin 11.4 g/dl (14.0-18.0); Mean Corpuscular Hemoglobin 25.7 pg (25.0-34.0); Mean Corpuscular Hgb Conc 32.1 g/dL (32.0-36.0); Mean Corpuscular Volume 80.1 fL (80.0-100.0); Mean Platelet Volume 9.3 fL (9.4-12.4); Platelet Count 119 K/uL (130-400); RDW Coefficient of Variation 17.2 % (11.5-14.5); Red Blood Count 4.43 M/uL (4.70-6.10); White Blood Count 5.76 K/ul (4.8-10.8)
[2024-07-29 05:07] LABS: BUN Creatinine Ratio 18.8 (10-20); Calcium 8.2 mg/dl (8.6-10.3); Creatinine Clr Calc Pharmacy 63.4 ml/min; Potassium 3.7 mmol/L (3.5-5.1)
[2024-07-29] MEDS: VITAMIN B COMPLEX TAB PO SCH (09:07)
[2024-07-29] MEDS: LANTUS PER UNIT CHARGE SQ SCH (09:10)
--- NOTE | 2024-07-29 09:19 | Pharmacy Report ---
Pharmacy PK ABX Note - Date of Service July 29, 2024 - Assessment and Plan Assessment 07/29: * Random vancomycin level this AM was 10.9 mcg/ml - repeat blood cultures negative on preliminary report, Scr stable. No intervention for amputation needed per ortho. Current vancomycin regimen predicting AUC/OLIVERIO ~430, which is lower end of our AUC goal of 400-600. Due to positive blood cultures, will increase vancomycin dose to target higher AUC range. 07/28: * Day #2 of Vancomycin and Zosyn. ID has been consulted, formal consult to come Monday. * MRSA growing in blood cultures from 07/26, repeats drawn today. Foot MRI negative for osteomyelitis per radiology. TTE negative for vegetations per cardiology. * SCr continues to improve. Given MRSA in blood, would like to be more aggressive with regimen. Therefore, will empirically switch patient's vancomycin dose today to provide q12h dosing. * Will keep level for tomorrow morning. Of note, patient did receive 1500 mg of vancomycin already this AM and will start 750 mg this evening (12 hours after AM dose). Therefore, expect level tomorrow to be slightly higher than what we can expect at steady state. 07/27: 79 year old M receiving Vancomycin and Zosyn for treatment of diabetic right foot infection. Also a possible UTI. * Day #1 of antimicrobial therapy. History of MSSA and GBS in right foot culture from February of this year. Podiatry consulted and recommending BKA/AKA vs 2 months of IV abx for osteomyelitis. MRI pending. * 24-hr Tmax of 38.3oC. No leukocytosis. SCr improved slightly to 1.02 mg/dL this AM. * Blood and urine cultures pending at this time. Plan Vancomycin * Increase to vancomycin 1000 mg iv q 12 hours - this will target AUC/OLIVERIO ~550 at steady state * Will repeat level in next 2 days to ensure stable Zosyn * 4.5 g IV every 8 hours Pharmacy will continue to follow and will adjust dose/frequency as necessary. Thank you. Pharmacy has transitioned to AUC monitoring for vancomycin. AUC/OLIVERIO is the preferred PK/PD target and is associated with decreased risk of nephrotoxicity compared to traditional trough targets.
--- NOTE | 2024-07-29 09:58 | Consultation ---
Date of Consultation July 29, 2024 Assessment & Plan (1) Peripheral arterial disease with history of revascularization: Pt with widely patent RLE vein conduit bypass, biphasic flow on US and easily palpable pulses. R foot wound infected but without definite osteomyelitis, would treat per podiatry/orthopedics. No indications for vascular surgical intervention presently. If wounds worsen significantly or osteomyelitis develops and limb not salvageable, pt would likely need AKA. Discussed with pt, he expresses understanding. History of Present Illness Reason for Consultation: PAD Attending Physician: Vijay Jorge MD History of Present Illness 79 yo m with multiple medical problems, including HTN, DMII, PAD s/p RLE fem-po st tib in situ bypass, BPH,hyperlipidemia, neuropathy, depression, admitted with R foot infection, seen in consultation today for PAD. Pt underwent RLE fem- posterior tib in situ bypass in 02/2024, d/t ischemic/DM wounds to R foot, which ultimately required TMA by podiatry. Per pt, his foot wound healed after the TMA surgery, but he was required to wear a post op shoe/boot, which rubbed his foot and caused other wounds to develop. Pt admits some pain in the infection site, but otherwise, no significant complaints. Denies WEIR, fever, cehst pain, SOB, abd pain, N/V, rest pain, claudication, other complaints. Arterial US imaging demonstrates biphasic flow through bypass and outflow. Allergies Allergy/AdvReac Type Severity Reaction Status Date / Time No Known Allergies Allergy Verified 07/26/24 19:07 Home Medications Medication Instructions Recorded Confirmed Type acetaminophen 325 mg tablet 650 mg (2 x 325 mg) PO Q4H PRN 03/13/24 07/26/24 Rx pain #30 tabs bismuth tribrom-petrolatum,wh 4" X #100 ea 04/18/24 04/18/24 Rx 4" bandage (Xeroform Petrolatum Dressing) tamsulosin 0.4 mg capsule (Flomax) 0.4 mg PO HS #90 caps 04/18/24 07/26/24 Rx blood-glucose sensor (Dexcom G7 #3 ea 04/30/24 Rx Sensor device) blood-glucose,fermenting cellars receiver,cont #1 ea 04/30/24 Rx (Dexcom G7 Mail Processing Clerk) thiamine HCl (vitamin B1) 100 mg 100 mg PO BID 05/07/24 07/26/24 History tablet metoprolol tartrate 100 mg tablet 100 mg PO BID #180 tabs 05/14/24 07/26/24 Rx potassium chloride 20 mEq 20 meq PO BID #180 tabs 05/14/24 07/26/24 Rx tablet,extended release(part/cryst) sertraline 50 mg tablet 50 mg PO BID #180 tabs 05/14/24 07/26/24 Rx triamterene 75 1 tab PO DAILY #90 tabs 05/14/24 07/26/24 Rx mg-hydrochlorothiazide 50 mg tablet insulin glargine-yfgn 100 unit/mL 20 unit (0.2 mL) subcut QAM #15 mL 06/21/24 07/26/24 Rx (3 mL) subcutaneous pen (Semglee (insulin glargine-yfgn) Pen) Patient History Medical History Paroxysmal SVT (supraventricular tachycardia) 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 Prolonged QT interval Surgical History S/P femoral-tibial bypass S/P vascular surgery Social History Smoking Status: Current every day smoker Tobacco Type: Cigarettes Age Started Using Tobacco: 19; Age Quit Using Tobacco: 78; packs per day: 1; Cigarettes Per Day: 3-5 - "cut way back since my foot"; Second Hand Exposure: No; Do You Dip or Chew Tobacco: No; Tobacco Cessation Education Requested by Patient: No Hx Alcohol Use: No Hx Substance Use: No Preferred Language: Thai Communication Ability: Effective Rn Pain Management Required: No Beliefs That Will Affect Care: None Current Living Situation: Alone Current Living Situation Comment: patient lives alone, states son does live close by Other Information That Helps Us Care for You: No Feels Safe at Home: Yes Safety Concerns: Feels Safe At This Time Assistive Devices: Cane, Walker and Wheelchair Review of Systems Review of Systems: All systems reviewed & are unremarkable except as noted in HPI & below Physical Exam Constitutional: WD/WN, vitals as above well developed and + disheveled; not in distress Respiratory: normal respiratory effort, lungs clear to auscultation Auscultation: + diminished lung sounds Cardiovascular: Rate/Rhythm: regular rate and regular rhythm Vessels: posterior tibial pulses present (+3 RLE) and dorsalis pedis pulses present (+1 RLE); + abnormal peripheral pulses Extremities: normal capillary refill Gastrointestinal (Abdomen): Inspection/Auscultation: abdomen normal to inspection and normal bowel sounds Percussion/Palpation: abdomen soft; abdomen nontender Musculoskeletal: no cyanosis or clubbing, extremities motor strength 5/5 Skin: R foot wound, +erythema, purulent drainage. Neurologic: moves all extremities and awake; no focal motor deficits and not confused Psychiatric: A+Ox3, euthymic affect Results & Data Vital Signs (Past 12 Hours) Vital Signs Temp Pulse Resp BP Pulse Ox O2 Del Method 07/29/24 07:48 37.0 C 68 18 165/73 H 96 Room Air
--- NOTE | 2024-07-29 10:32 | Infectious Disease Consult ---
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 On admission, he was febrile to 38.3, otherwise vss. Initial labs with WBC 7.60, Cr 1.11, AST/ALT wnl. Elevated troponin. PCT 0.35. UA 21-50 WBC. RPP neg. BCX with MRSA. CXR neg. R foot XR neg. R leg arterial duplex with e/o stenosis. R foot MRI negative for OM. TTE negative for vegetations, no valvular pathology. Seen by podiatry who noted probe to bone with purulence and consideration for BKA. Seen by ortho, but given MRI results, no intervention recommended. He has been getting vanc/zosyn. ID consulted 07/29. MRSA bacteremia likely 2/2 right foot infection. I spoke to Dr. Oakes and he said there was a very positive probe to bone test. Given negative MRI, I do think we should get a bone biopsy/culture to get a better idea of osteomyelitis. Podiatry unavailable until end of this week. I did speak with orthopedics and they will take a look. Will keep on current regimen for now. I did also add wound cultures. # MRSA bacteremia TTE neg # Right foot infection - probe to bone, MRI neg # Diarrhea # h/o T2DM # Peripheral vascular disease - f/u repeat blood cx - f/u wound cx - ortho to evaluate for bone biopsy - appreciate help - monitor loose stools - C diff testing is toxin negative, no BMs today - continue vancomycin pharmacy dosed protocol - continue zosyn - final regimen/duration pending above Will continue to follow. If questions or concerns, contact via [employer] or Infectious Disease Call Center . Jessie Mccord MD [facility], Division of Infectious Diseases Consultation Information Consultation was provided via telemedicine using two-way real-time interactive telecommunication between the patient and the telemedicine provider. For the duration of the visit, the provider was performing the assessment from a different facility than the patient. This includesuse of bluetooth stethoscope forauscultationperformed by the telepresenter that the telemedicine provider can hear if described in the physical exam. [employer] contact information: Please call [facility] Call Center [phone]. (Phone Number For Physician Use Only) After establishing a telemedicine visit, patient was: Patient was verified with two unique identifiers, Patient/authorized rep acknowledged consent and understanding and Gave permission to continue telehealth session Time Spent with Patient: Initial => 75 min History of Present Illness Reason for Consultation: Osteomyelitis with bacteremia Attending Physician: Vijay Jorge MD History of Present Illness 79yo M with h/o T2DM, PAD s/p right fem-pop bypass 02/2024, BPH, depression, HTN, HLD, prior EtOH use, right foot gangrene with OM of second toe in 02/2024 s/p second ray amputation 02/21 with clear margins (WCX with MSSA, GBS, dcd on Keflex x 7d), 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 He has had pain in his right foot, has had yellow drainage, and fever. He was seen by podiatry and there was concern that the foot looked worse. Also developed significant weakness. No reported abdominal pain, urinary sx, n/v/d. On admission, he was febrile to 38.3, otherwise vss. Initial labs with WBC 7.60, Cr 1.11, AST/ALT wnl. Elevated troponin. PCT 0.35. UA 21-50 WBC. RPP neg. BCX with MRSA by BCID. CXR neg. R foot XR neg. R leg arterial duplex with e/o stenosis. R foot MRI negative for OM. TTE negative for vegetations, no valvular pathology. Seen by podiatry who noted probe to bone with purulence and consideration for BKA. Seen by ortho, but given MRI results, no intervention recommended. He has been getting vanc/zosyn. ID consulted 07/29. On evaluation, patient reports feeling well. He does have pain in his right foot, though says it isnt that bad. He also has had drainage from the foot wound. He says he had 2 wounds, 1 of which closed. The other lateral wound happened due to his shoe that he was wearing. He also has had loose stools that he describes as pudding in consistency. Notes 2-3 stools per day, no BM today. No hardware, no back pain, no joint swelling/redness/pain. Denies abdominal pain. No chest pain/SOB. Allergies Allergy/AdvReac Type Severity Reaction Status Date / Time No Known Allergies Allergy Verified 07/26/24 19:07 Home Medications Medication Instructions Recorded Confirmed Type acetaminophen 325 mg tablet 650 mg (2 x 325 mg) PO Q4H PRN 03/13/24 07/26/24 Rx pain #30 tabs bismuth tribrom-petrolatum,wh 4" X #100 ea 04/18/24 04/18/24 Rx 4" bandage (Xeroform Petrolatum Dressing) tamsulosin 0.4 mg capsule (Flomax) 0.4 mg PO HS #90 caps 04/18/24 07/26/24 Rx blood-glucose sensor (Dexcom G7 #3 ea 04/30/24 Rx Sensor device) blood-glucose,sales counselor,cont #1 ea 04/30/24 Rx (Dexcom G7 Delicatessen Clerk) thiamine HCl (vitamin B1) 100 mg 100 mg PO BID 05/07/24 07/26/24 History tablet metoprolol tartrate 100 mg tablet 100 mg PO BID #180 tabs 05/14/24 07/26/24 Rx potassium chloride 20 mEq 20 meq PO BID #180 tabs 05/14/24 07/26/24 Rx tablet,extended release(part/cryst) sertraline 50 mg tablet 50 mg PO BID #180 tabs 05/14/24 07/26/24 Rx triamterene 75 1 tab PO DAILY #90 tabs 05/14/24 07/26/24 Rx mg-hydrochlorothiazide 50 mg tablet insulin glargine-yfgn 100 unit/mL 20 unit (0.2 mL) subcut QAM #15 mL 06/21/24 07/26/24 Rx (3 mL) subcutaneous pen (Semglee (insulin glargine-yfgn) Pen) Patient History Medical History Paroxysmal SVT (supraventricular tachycardia) 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 Prolonged QT interval Surgical History S/P femoral-tibial bypass S/P vascular surgery Social History Smoking Status: Current every day smoker Tobacco Type: Cigarettes Age Started Using Tobacco: 19; Age Quit Using Tobacco: 78; packs per day: 1; Cigarettes Per Day: 3-5 - "cut way back since my foot"; Second Hand Exposure: No; Do You Dip or Chew Tobacco: No; Tobacco Cessation Education Requested by Patient: No Hx Alcohol Use: No Hx Substance Use: No Preferred Language: Moroccan Communication Ability: Effective Viscose Department Worker Required: No Beliefs That Will Affect Care: None Current Living Situation: Alone Current Living Situation Comment: patient lives alone, states son does live close by Other Information That Helps Us Care for You: No Feels Safe at Home: Yes Safety Concerns: Feels Safe At This Time Assistive Devices: Cane, Walker and Wheelchair Review of System 10-point review of systems reviewed and are negative except for as above. Physical Exam Physical Exam: General: Awake, alert, no acute distress HEENT: NC/AT, EOMI, mmm Neck: supple Lungs: respirations non-labored Heart: nl peripheral perfusion Abdomen: soft, NT/ND Back: no spinal tenderness Ext: right foot with open wound, dressing with bloody/yellow drainage, mild erythema Skin: no rash Neuro: moving all extremities Results & Data Vital Signs (Past 12 Hours) Vital Signs Temp Pulse Resp BP Pulse Ox O2 Del Method 07/29/24 07:48 37.0 C 68 18 165/73 H 96 Room Air Laboratory Results Labs reviewed. Diagnostic Findings Imaging reviewed. (4) 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 mellitus terminologist insulin use: with terminologist use Qualified Code(s): E11.42 - Type 2 diabetes mellitus with diabetic polyneuropathy; Z79.4 - retirement (current) use of insulin
--- NOTE | 2024-07-29 11:43 | Hospitalist Progress Note ---
Date of Service July 29, 2024 Assessment & Plan (1) Acute osteomyelitis of right foot: (2) Cellulitis: (3) Type 2 diabetes mellitus with diabetic polyneuropathy: (4) Benign essential hypertension: (5) Hyperlipidemia: (6) Depression: (7) BPH (benign prostatic hyperplasia): (8) S/P femoral-tibial bypass: (9) PVD (peripheral vascular disease): (10) MRSA bacteremia: Plan 79-year-old male with past medical history of type 2 diabetes mellitus with polyneuropathy, peripheral vascular disease status post right femoropopliteal bypass as well as 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 #Right lower extremity cellulitis/osteomyelitis #MRSA bacteremia Podiatry saw the patient, recommended vascular surgery consult and evaluation for right AKA/BKA along with ID consult Orthopedic saw the patient, recommended continue IV antibiotics, no emergent need for AKA/BKA and recommended vascular surgery consult MRI did not show any evidence of osteomyelitis although podiatry clinically feels patient has osteomyelitis 2D echo from 07/28/2024 shows normal left ventricular systolic function with EF of 60 to 65% with mild concentric LVH, no significant valvular pathology, no valvular vegetations noted, no regional wall motion abnormalities noted. Blood cultures from admission on 07/26/2024 growing MRSA sensitive to vancomycin, linezolid and daptomycin Repeat blood cultures from 07/28/2024 have been negative to date Continue IV vancomycin and IV Zosyn (day 3) Pharmacy managing vancomycin dosing Patient was seen by vascular surgery, recommending treat per podiatry/orthopedic recommendations and if wounds worsen significantly osteomyelitis develops and limb not salvageable, patient would need AKA ID following the patient C. difficile gene is positive, toxin negative Wound culture of right foot ordered by ID: Results pending Podiatry to do bedside bone biopsy per ID request Await ID recommendations regarding antibiotics #Elevated troponin, likely demand ischemia in setting of infection #Essential hypertension #Hyperlipidemia #History of peripheral vascular disease status post right femoropopliteal bypass EKG without any ischemic changes, patient without chest pain or shortness of breath Suspect troponin is from demand ischemia 2D echo from 07/28/2024 shows normal left ventricular systolic function with EF of 60 to 65% with mild concentric LVH, no significant valvular pathology, no valvular vegetations noted, no regional wall motion abnormalities noted. LDL is 65 Total cholesterol is 110 Vascular surgery consulted Continue metoprolol. Increase losartan to 50 mg p.o. daily for better blood pressure control Monitor vital signs #Thrombocytopenia Likely secondary to infection Monitor platelet count intermittently: So far has been stable #Type 2 diabetes mellitus A1c 7.3 Pharmacy managing glycemic control #BPH Continue tamsulosin #Depression Continue sertraline #Hypokalemia Hold Dyazide diuretic Potassium replacement as needed #Iron deficiency anemia Iron level is 14 Percent saturation is fine B12 is 221 Folate is 9.27 Continue iron supplementation Vitamin B12 supplementation Outpatient follow-up with PCP for further investigations including EGD/colonoscopy CODE STATUS: Full code DVT prophylaxis: Lovenox 40 mg subcutaneous nightly Disposition: Discharge location unclear at this time, may need home health versus SNF, awaiting ID recommendations regarding antibiotics based on bone biopsy report, likely discharge in the next 48 to 72 hours based on ID recommendations Care plan discussed with patient and nursing staff Admission and Anticipated Discharge Date Admission Date: July 27, 2024 Subjective Patient seen and examined He is agreeable to a bone biopsy at bedside by college president today Denies any chest pain or shortness of breath Overall feels better with improvement in appetite Patient states he had 1 loose stool today, no episodes of continuous diarrhea Denies any fever or chills Physical Exam Physical Exam: General: No acute distress Psych: Awake and alert HEENT: Anicteric sclera, moist oral mucosa CVS: Regular rate and rhythm Lungs: Bilateral air entry, no wheezing noted Abdomen: Soft, nontender, no rebound, no guarding Ext: Right lower extremity in dressing Neuro: No focal motor deficits noted Results & Data Results & Data Vital Signs (Past 12 Hours) Vital Signs Temp Pulse Resp BP Pulse Ox O2 Del Method 07/29/24 10:55 Room Air 07/29/24 07:48 37.0 C 68 18 165/73 H 96 Room Air Laboratory Results 07/29/24 10:52 Gram Stain - Pending Foot,Right Wound Culture - Pending 07/26/24 17:31 Aerobic Blood Culture - Final Blood Staph aureus MRSA Anaerobic Blood Culture - Final Staph aureus MRSA 07/26/24 17:31 Aerobic Blood Culture - Final Blood Staph aureus MRSA Anaerobic Blood Culture - Final Staph aureus MRSA 07/28/24 06:08 Aerobic Blood Culture - Preliminary Blood No growth in Aerobic bottle after 24 hours. Anaerobic Blood Culture - Preliminary No growth in Anaerobic bottle after 24 hours. 07/28/24 06:08 Aerobic Blood Culture - Preliminary Blood No growth in Aerobic bottle after 24 hours. Anaerobic Blood Culture - Preliminary No growth in Anaerobic bottle after 24 hours. 07/26/24 19:25 Urine Culture - Final Urine,Clean Catch More than three types of organisms present, all moderate counts mixed probable skin irais. No further identifications or sensitivities to follow. 07/29/24 07/29/24 07/28/24 07:43 04:34 20:14 WBC 5.76 RBC 4.43 L Hgb 11.4 L Hct 35.5 L MCV 80.1 MCH 25.7 MCHC 32.1 RDW Std Deviation 51.0 H RDW Coeff of Neftali 17.2 H Plt Count 119 L MPV 9.3 L ESR 86 H Sodium 138 Potassium 3.7 Chloride 110 H Carbon Dioxide 21 Anion Gap 7 BUN 18 Creatinine 0.96 Est Cr Clr Drug Dosing 63.4 eGFR 80.90 BUN/Creatinine Ratio 18.8 Glucose 118 H POC Glucose 105 H 99 Calcium 8.2 L Magnesium 2.0 Stl C. diff Tox B Gene Stl C.difficile Tox A&B Stl C. diff 027-NAP1-BI Random Vancomycin 10.9 07/28/24 07/28/24 16:41 12:14 WBC RBC Hgb Hct MCV MCH MCHC RDW Std Deviation RDW Coeff of Neftali Plt Count MPV ESR Sodium Potassium Chloride Carbon Dioxide Anion Gap BUN Creatinine Est Cr Clr Drug Dosing eGFR BUN/Creatinine Ratio Glucose POC Glucose 124 H Calcium Magnesium Stl C. diff Tox B Gene Positive Cdiff Gene A Stl C.difficile Tox A&B Negative Cdiff Toxin Stl C. diff 027-NAP1-BI NEGATIVE Random Vancomycin PG Care Time/CCT Total # of Minutes Spent Total Time Spent with Patient: Total time spent is greater than 50% in coordination of care (as documented) at patient's floor/unit and/or counseling patient: Coding Level of Care Code 89287 SUB INP/OBS CARE 2/35MIN Diagnoses Acute osteomyelitis of right foot M86.171 Cellulitis L03.115 Laterality: right Site of cellulitis: extremity Site of cellulitis of extremity: lower extremity Type 2 diabetes mellitus with diabetic polyneuropathy, with long-term current use of insulin E11.42; Z79.4 Diabetes mellitus predatory animal exterminator insulin use: with detention use Benign essential hypertension I10 Mixed hyperlipidemia E78.2 Hyperlipidemia type: mixed hyperlipidemia Persistent depressive disorder F34.1 Depression Type: persistent depressive disorder Benign prostatic hyperplasia with lower urinary tract symptoms, symptom details unspecified N40.1 Lower urinary tract symptom detail: unspecified Lower urinary tract symptom presence: symptoms present S/P femoral-tibial bypass Z98.890 PVD (peripheral vascular disease) I73.9 MRSA bacteremia R78.81; B95.62 (2) Cellulitis Laterality: right Site of cellulitis: extremity Site of cellulitis of extremity: lower extremity Qualified Code(s): L03.115 - Cellulitis of right lower limb (3) 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 mellitus predatory animal exterminator insulin use: with predatory animal exterminator use Qualified Code(s): E11.42 - Type 2 diabetes mellitus with diabetic polyneuropathy; Z79.4 - extermination inspector (current) use of insulin (5) Hyperlipidemia Hyperlipidemia type: mixed hyperlipidemia Qualified Code(s): E78.2 - Mixed hyperlipidemia (6) Depression Depression Type: persistent depressive disorder Qualified Code(s): F34.1 - Dysthymic disorder (7) BPH (benign prostatic hyperplasia) Lower urinary tract symptom detail: unspecified Lower urinary tract symptom presence: symptoms present Qualified Code(s): N40.1 - Benign prostatic hyperplasia with lower urinary tract symptoms
--- NOTE | 2024-07-29 12:14 | Procedure Note ---
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 Timeout held confirming correct patient side site and procedure with all necessary parties confirming. Wound is flushed with normal sterile saline 10cc. Areas prepped and draped in the usual aseptic fashion was. Bone biopsy with 2 mm Jamshidi needle collected in standard fashion from exposed bone in the wound bed. Biopsy placed in a white top vessel and normal sterile saline to be sent for culture and sensitivity. Patient tolerated the procedure well. No anesthesia necessary secondary to peripheral neuropathy. Wound is again flushed with normal sterile saline and dressed with dry sterile dressing. CPT - 66122 [facility] [place] Codes (Charges) Indication for Procedure Indication for procedure: Diabetic ulcer right foot with exposure of 5th metatarsal bone to wound base Coding Additional Codes Date of Service (PG.SURGERY)
--- NOTE | 2024-07-29 14:32 | Pharmacy Report ---
Pharmacy Glycemic Short Note 2 - Date of Service July 29, 2024 - Glycemic Short BSG Results (Last 24 hours): 07/28/24 07/28/24 07/29/24 16:41 20:14 04:34 Glucose 118 H POC Glucose 124 H 99 07/29/24 07/29/24 07:43 11:47 Glucose POC Glucose 105 H 158 H OUTPATIENT ANTIDIABETIC REGIMEN: * Insulin glargine 20 units SQ Daily * A1c 6.4% 02/21/24, updated A1c pending ASSESSMENT: 07/30 * Patient received total of 20 units of insulin yesterday, of which 12 units were basal * BSGs yesterday stable, reasonable to continue current regimen for now 07/27 * 79 yo M with ongoing RLE wounds, required amputation of all digits and femoropopliteal bypass secondary to severity of disease. Follows with his investment advisor/foot and ankle surgeon who evaluated him on the day of arrival (07/26/2024) - Dr. Oakes - concern for worsening of his wounds, r/o OM, on Vanc/Zosyn now. * Type 2 DM, ordered updated A1c, hyperglycemic last night, fasting at goal this morning (120mg/dl), begin with home basal and NovoLog, may need to decrease basal as inpatient as patient is also receiving prandial/correctional insulin here. PLAN FOR INPATIENT GLYCEMIC CONTROL: * Basal insulin * Lantus 12 units SQ daily * Bolus insulin * NovoLog per scale ACHS or Q6hrs while NPO * Goal Range: Low 110 mg/dL - High 140 mg/dL * Correction Factor: 35 mg/dL/unit * Nutritional / Prandial insulin per carb ratio of 1 unit per 15 grams CHO consumed
[2024-07-29] MEDS: POTASSIUM CHLORIDE CRTAB 20 MEQ TABCR PO STA (16:13)
[2024-07-29] MEDS: LOSARTAN POTASSIUM 25 MG TAB PO ONE (16:14)
[2024-07-29] MEDS: VANCOMYCIN HCL 1,000 MG in SODIUM CHLORIDE 0.9% 250 ML IV SCH (17:24)
[2024-07-30 07:52] LABS: Creatinine Clr Calc Pharmacy 69.2 ml/min
[2024-07-30] MEDS: DAPTOmycin 600 MG in SYRINGE 0 ML IV SCH (08:34)
[2024-07-30] MEDS: LOSARTAN POTASSIUM 50 MG TAB PO SCH (08:36)
--- NOTE | 2024-07-30 09:41 | Infectious Disease Progress Nt ---
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 On admission, he was febrile to 38.3, otherwise vss. Initial labs with WBC 7.60, Cr 1.11, AST/ALT wnl. Elevated troponin. PCT 0.35. UA 21-50 WBC. RPP neg. BCX with MRSA. CXR neg. R foot XR neg. R leg arterial duplex with e/o stenosis. R foot MRI negative for OM. TTE negative for vegetations, no valvular pathology. Seen by podiatry who noted probe to bone with purulence and consideration for BKA. Seen by ortho, but given MRI results, no intervention recommended. He has been getting vanc/zosyn. ID consulted 07/29. S/p bone biopsy 07/29, culture positive. I spoke to Dr. Oakes yesterday and he said probe to bone test was very positive. Dr. Dos Santos performed bone bx, which is growing S aureus. I did ask pathology lab to also see if we can add path to the specimen and they will add on. Given positive bone cultures, I do think patient has osteomyelitis (probably early given negative MRI) and needs to be treated as such. Would have surgical team come back for input regarding any surgical interventions. # MRSA bacteremia TTE neg, ngtd 07/28 # Right foot OM - probe to bone, MRI neg, bone cx+ # Diarrhea # h/o T2DM # Peripheral vascular disease - would obtain surgical input regarding any further management in lieu of positive bone cultures suggesting OM - f/u wound cx and bone cx/path - I stopped vancomycin and started daptomycin 8mg/kg (600mg) IV q24h (BMI 24, Wt 73.8kg, CrCl > 30) - ordered CPK for baseline - continue zosyn - will de-escalate pending bone/wound cx Will continue to follow. If questions or concerns, contact via [employer] or Infectious Disease Call Center . Jessie Mccord MD [facility], Division of Infectious Diseases Admission and Anticipated Discharge Date Admission Date: July 27, 2024 Subjective Subsequent visit was provided via telemedicine using two-way real-time interactive telecommunication between the patient and the telemedicine provider. For the duration of the visit, the provider was performing the assessment from a different facility than the patient. This includesuse of bluetooth stethoscope forauscultationperformed by the telepresenter that the telemedicine provider can hear if described in the physical exam. Enterprise Infrastructure Architect contact information: Please call [facility] Call Center [phone]. (Phone Number For Physician Use Only) After establishing a telemedicine visit, patient was: Patient was verified with two unique identifiers, Patient/authorized rep acknowledged consent and understanding and Gave permission to continue telehealth session Time Spent with Patient: Subsequent => 55 min Patient reports feeling well. Only 2 BMs yesterday, 1 today. 4/10 pain in his foot. Physical Exam Physical Exam: General: Awake, alert, no acute distress HEENT: NC/AT, EOMI, mmm Neck: supple Lungs: respirations non-labored Heart: nl peripheral perfusion Abdomen: soft, NT/ND Ext: R foot with dressing in place Skin: no rash Neuro: moving all extremities Results & Data Vital Signs (Past 12 Hours) Vital Signs Temp Pulse Resp BP Pulse Ox O2 Del Method 07/30/24 09:17 Room Air 07/30/24 07:57 36.8 C 70 18 169/75 H 95 Room Air Laboratory Results Labs reviewed. Diagnostic Findings Imaging reviewed. (4) 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 mellitus adjunct faculty for medical terminology insulin use: with adjunct faculty for medical terminology use Qualified Code(s): E11.42 - Type 2 diabetes mellitus with diabetic polyneuropathy; Z79.4 - adjunct faculty for medical terminology (current) use of insulin
--- NOTE | 2024-07-30 12:07 | Hospitalist Progress Note ---
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 #Right lower extremity cellulitis/osteomyelitis #MRSA bacteremia Podiatry saw the patient, recommended vascular surgery consult and evaluation for right AKA/BKA along with ID consult Orthopedic saw the patient, recommended continue IV antibiotics, no emergent need for AKA/BKA and recommended vascular surgery consult MRI did not show any evidence of osteomyelitis although podiatry clinically feels patient has osteomyelitis 2D echo from 07/28/2024 shows normal left ventricular systolic function with EF of 60 to 65% with mild concentric LVH, no significant valvular pathology, no valvular vegetations noted, no regional wall motion abnormalities noted. Blood cultures from admission on 07/26/2024 growing MRSA sensitive to vancomycin, linezolid and daptomycin Repeat blood cultures from 07/28/2024 have been negative to date Wound culture of right foot from 07/30/2023: Preliminary results showing Staph aureus, final report pending Right foot bone biopsy from 07/30/2023: Preliminary results showing Staph aureus, final report pending. Pathology pending Continue IV Zosyn (day 4) IV vancomycin was switched to IV daptomycin by ID on 07/30/2024 Pharmacy managing vancomycin dosing Patient was seen by vascular surgery, recommending treat per podiatry/orthopedic recommendations and if wounds worsen significantly osteomyelitis develops and limb not salvageable, patient would need AKA ID following the patient, ID is recommending getting vascular surgery back to discuss surgical options: Message sent to Dr. Snow, awaiting response C. difficile gene is positive, toxin negative Await ID recommendations regarding antibiotics #Elevated troponin, likely demand ischemia in setting of infection #Essential hypertension #Hyperlipidemia #History of peripheral vascular disease status post right femoropopliteal bypass EKG without any ischemic changes, patient without chest pain or shortness of breath Suspect troponin is from demand ischemia 2D echo from 07/28/2024 shows normal left ventricular systolic function with EF of 60 to 65% with mild concentric LVH, no significant valvular pathology, no valvular vegetations noted, no regional wall motion abnormalities noted. LDL is 65 Total cholesterol is 110 Continue metoprolol. Continue losartan to 50 mg p.o. daily for better blood pressure control Monitor vital signs #Thrombocytopenia Likely secondary to infection Monitor platelet count intermittently: So far has been stable #Type 2 diabetes mellitus A1c 7.3 Pharmacy managing glycemic control #BPH Continue tamsulosin #Depression Continue sertraline #Hypokalemia Hold Dyazide diuretic Potassium replacement as needed #Iron deficiency anemia Iron level is 14 Percent saturation is fine B12 is 221 Folate is 9.27 Continue iron supplementation Vitamin B12 supplementation Outpatient follow-up with PCP for further investigations including EGD/colonoscopy CODE STATUS: Full code DVT prophylaxis: Lovenox 40 mg subcutaneous nightly Disposition: Discharge location unclear at this time, may need home health versus SNF (patient's preferences for home health care), awaiting ID recommendations regarding antibiotics based on bone biopsy report, likely discharge in the next 48 to 72 hours based on ID recommendations and vascular surgery follow-up Care plan discussed with patient and nursing staff Admission and Anticipated Discharge Date Admission Date: July 27, 2024 Subjective Patient seen and examined Denies any chest pain or shortness of breath Tolerating oral diet without any issues He prefers to go home rather than rehab Physical Exam Physical Exam: General: No acute distress Psych: Awake and alert HEENT: Anicteric sclera, moist oral mucosa CVS: Regular rate and rhythm Lungs: Bilateral air entry, no wheezing noted Abdomen: Soft, nontender, no rebound, no guarding Ext: Right lower extremity in dressing Neuro: No focal motor deficits noted Results & Data Results & Data Vital Signs (Past 12 Hours) Vital Signs Temp Pulse Resp BP Pulse Ox O2 Del Method 07/30/24 09:17 Room Air 07/30/24 07:57 36.8 C 70 18 169/75 H 95 Room Air Laboratory Results 07/29/24 10:52 Gram Stain - Final Foot,Right Wound Culture - Preliminary Staphylococcus aureus 07/29/24 11:50 Gram Stain - Final Foot,Right Aerobic and Anaerobic Culture - Preliminary Staphylococcus aureus 07/28/24 06:08 Aerobic Blood Culture - Preliminary Blood No growth in Aerobic bottle after 48 hours. Anaerobic Blood Culture - Preliminary No growth in Anaerobic bottle after 48 hours. 07/28/24 06:08 Aerobic Blood Culture - Preliminary Blood No growth in Aerobic bottle after 48 hours. Anaerobic Blood Culture - Preliminary No growth in Anaerobic bottle after 48 hours. 07/26/24 17:31 Aerobic Blood Culture - Final Blood Staph aureus MRSA Anaerobic Blood Culture - Final Staph aureus MRSA 07/26/24 17:31 Aerobic Blood Culture - Final Blood Staph aureus MRSA Anaerobic Blood Culture - Final Staph aureus MRSA 07/30/24 07/30/24 07/30/24 11:35 07:52 06:54 Creatinine 0.88 Est Cr Clr Drug Dosing 69.2 eGFR 88.01 POC Glucose 124 H 117 H Total Creatine Kinase 42 07/29/24 07/29/24 20:41 16:46 Creatinine Est Cr Clr Drug Dosing eGFR POC Glucose 105 H 103 H Total Creatine Kinase PG Care Time/CCT Total # of Minutes Spent Total Time Spent with Patient: Total time spent is greater than 50% in coordination of care (as documented) at patient's floor/unit and/or counseling patient: Coding Level of Care Code 03011 SUB INP/OBS CARE 2MIN Diagnoses Acute osteomyelitis of right foot M86.171 Cellulitis L03.115 Laterality: right Site of cellulitis: extremity Site of cellulitis of extremity: lower extremity Type 2 diabetes mellitus with diabetic polyneuropathy, with long-term current use of insulin E11.42; Z79.4 Diabetes mellitus roasterman insulin use: with snf use Benign essential hypertension I10 Mixed hyperlipidemia E78.2 Hyperlipidemia type: mixed hyperlipidemia Persistent depressive disorder F34.1 Depression Type: persistent depressive disorder Benign prostatic hyperplasia with lower urinary tract symptoms, symptom details unspecified N40.1 Lower urinary tract symptom detail: unspecified Lower urinary tract symptom presence: symptoms present S/P femoral-tibial bypass Z98.890 PVD (peripheral vascular disease) I73.9 MRSA bacteremia R78.81; B95.62 (2) Cellulitis Laterality: right Site of cellulitis: extremity Site of cellulitis of extremity: lower extremity Qualified Code(s): L03.115 - Cellulitis of right lower limb (3) 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 mellitus roasterman insulin use: with snf use Qualified Code(s): E11.42 - Type 2 diabetes mellitus with diabetic polyneuropathy; Z79.4 - senior care (current) use of insulin (5) Hyperlipidemia Hyperlipidemia type: mixed hyperlipidemia Qualified Code(s): E78.2 - Mixed hyperlipidemia (6) Depression Depression Type: persistent depressive disorder Qualified Code(s): F34.1 - Dysthymic disorder (7) BPH (benign prostatic hyperplasia) Lower urinary tract symptom detail: unspecified Lower urinary tract symptom presence: symptoms present Qualified Code(s): N40.1 - Benign prostatic hyperplasia with lower urinary tract symptoms
[2024-07-31 06:21] LABS: Hematocrit (blood only) 37.1 % (42.0-52.0); Hemoglobin 11.8 g/dl (14.0-18.0); Mean Corpuscular Hemoglobin 25.9 pg (25.0-34.0); Mean Corpuscular Hgb Conc 31.8 g/dL (32.0-36.0); Mean Corpuscular Volume 81.5 fL (80.0-100.0); Mean Platelet Volume 9.2 fL (9.4-12.4); Platelet Count 154 K/uL (130-400); RDW Standard Deviation 50.5 fL (36.4-46.3); Red Blood Count 4.55 M/uL (4.70-6.10); White Blood Count 6.97 K/ul (4.8-10.8)
[2024-07-31 06:41] LABS: Albumin Globulin Ratio 0.9 (0.9-2); Albumin Level 3.1 gm/dl (3.4-5.0); BUN Creatinine Ratio 17.2 (10-20); Bilirubin,Total 0.3 mg/dl (0.2-1.0); C Reactive Protein 3.03 mg/dl (0-0.5); Calcium 8.5 mg/dl (8.6-10.3); Creatinine Clr Calc Pharmacy 61.5 ml/min; Globulin 3.6 gm/dl (2.5-4.0); Potassium 3.8 mmol/L (3.5-5.1); Total Protein 6.7 gm/dl (6.0-8.3)
--- NOTE | 2024-07-31 10:28 | Communication Note ---
Date of Service: July 31, [address] Jorge last pm that i would refer back to podiatry for further surgical interventions for management of the foot wound. I don't think he deserves a high amputation at this point being he has a patent functioning bypass with good signals. Would continue with local wound care, antibiotics and further debridements as needed.
--- NOTE | 2024-07-31 11:42 | Infectious Disease Progress Nt ---
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 On admission, he was febrile to 38.3, otherwise vss. Initial labs with WBC 7.60, Cr 1.11, AST/ALT wnl. Elevated troponin. PCT 0.35. UA 21-50 WBC. RPP neg. BCX with MRSA. CXR neg. R foot XR neg. R leg arterial duplex with e/o stenosis. R foot MRI negative for OM. TTE negative for vegetations, no valvular pathology. Seen by podiatry who noted probe to bone with purulence and consideration for BKA, they did do a bedside debridement on 07/27 down to level of bone. Seen by ortho, deferred to vacular. Seen by vascular, who noted widely patent bypass with good flow to foot, no intervention advised. He has been getting vanc/zosyn. ID consulted 07/29. S/p bone biopsy 07/29, culture with MRSA. Abx changed to daptomycin. MRSA bacteremia likely 2/2 right foot infection. Podiatry noted very positive probe to bone test, so obtained bone biopsy (given negative MRI), which has growth of MRSA. Path pending. Regardless, will treat for 6 weeks for osteomyelitis. MRSA and skin irais growing on wound cx, bone cx with MRSA. Will narrow to daptomycin. No further intervention per podiatry. # MRSA bacteremia TTE neg, ngtd 07/28 # Right foot OM - probe to bone, MRI neg, bone cx+MRSA # Diarrhea improving, C diff toxin neg # h/o T2DM # Peripheral vascular disease - please follow cultures to completion - call ID if anything new results - Lianne stopped zosyn - continue daptomycin 600mg (8mg/kg) IV q24h (BMI 24, Wt 73.8kg, CrCl > 30, CKP 40) - plan for 6 weeks of abx with daptomycin, start 07/28, end 09/07 - monitor weekly CBC w diff, CMP, ESR, CRP, and CPK while on IV antibiotics - outpatient follow up with PCP or local ID provider Will discontinue active follow up at this time. Please do not hesitate to reconsult the Infectious Diseases service as needed. Jessie Mccord MD [facility], Division of Infectious Diseases [employer]: [phone] Admission and Anticipated Discharge Date Admission Date: July 27, 2024 Subjective This patient recommendation is based on a telemedicine consult request which was completed asynchronously through chart review and information provided by the primary physician. The patient was not seen or examined today. The evaluation is consultative in nature and all patient care and treatment decisions can either be accepted or rejected by the patient's primary hospital-based treating physician using their own independent medical judgment for their patient. Time Spent Reviewing Chart: 31+ minutes Per vascular and podiatry, no surgical intervention. Patient remains afebrile. Results & Data Vital Signs (Past 12 Hours) Vital Signs Temp Pulse Resp BP Pulse Ox O2 Del Method 07/31/24 07:34 152/76 H 07/31/24 07:24 37.1 C 63 18 177/85 H 97 Room Air Laboratory Results Labs reviewed. 07/26 BCX: S aureus in 4 of 4 bottles (MRSA by BCID) 07/26 UCX: multiple counts 07/28 BCX: ngtd x 48h 07/28 C diff: gene A+, toxin neg 07/29 WCX: MRSA 07/29 Bone cx: MRSA Diagnostic Findings Imaging reviewed. (4) 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 mellitus senior care insulin use: with senior care use Qualified Code(s): E11.42 - Type 2 diabetes mellitus with diabetic polyneuropathy; Z79.4 - lobsterman (current) use of insulin
--- NOTE | 2024-07-31 13:16 | Hospitalist Progress Note ---
Date of Service July 31, 2024 Assessment & Plan (1) Acute osteomyelitis of right foot: (2) Cellulitis: (3) Type 2 diabetes mellitus with diabetic polyneuropathy: (4) Benign essential hypertension: (5) Hyperlipidemia: (6) Depression: (7) BPH (benign prostatic hyperplasia): (8) S/P femoral-tibial bypass: (9) PVD (peripheral vascular disease): (10) MRSA bacteremia: Plan 79-year-old male with past medical history of type 2 diabetes mellitus with polyneuropathy, peripheral vascular disease status post right femoropopliteal bypass as well as 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 #Right lower extremity cellulitis/osteomyelitis MRI did not show any evidence of osteomyelitis although podiatry clinically feels patient has osteomyelitis Per vascular and podiatry, no surgical intervention. Wound culture of right foot from 07/30/2023: Preliminary results showing Staph aureus, Right foot bone biopsy from 07/30/2023: Preliminary results showing Staph aureus, IV vancomycin was switched to IV daptomycin by ID on 07/30/2024 Will need IV antibiotics for 6-8 weeks #MRSA bacteremia 2D echo from 07/28/2024 shows normal left ventricular systolic function with EF of 60 to 65% with mild concentric LVH, no significant valvular pathology, no valvular vegetations noted, no regional wall motion abnormalities noted. Blood cultures from admission on 07/26/2024 growing MRSA sensitive to vancomycin, linezolid and daptomycin Repeat blood cultures from 07/28/2024 have been negative to date #History of peripheral vascular disease status post right femoropopliteal bypass Per vascular, patient has enough collaterals for blood supply Elevated trop EKG without any ischemic changes, patient without chest pain or shortness of breath Suspect troponin is from demand ischemia 2D echo from 07/28/2024 shows normal left ventricular systolic function with EF of 60 to 65% with mild concentric LVH, no significant valvular pathology, no valvular vegetations noted, no regional wall motion abnormalities noted. HLD LDL is 65 Total cholesterol is 110 HTN Continue metoprolol. Continue losartan to 50 mg p.o. daily for better blood pressure control Monitor vital signs #Thrombocytopenia Likely secondary to infection Monitor platelet count intermittently: So far has been stable #Type 2 diabetes mellitus A1c 7.3 Pharmacy managing glycemic control #BPH Continue tamsulosin #Depression Continue sertraline #Hypokalemia Hold Dyazide diuretic Potassium replacement as needed #Iron deficiency anemia Iron level is 14 Percent saturation is fine B12 is 221 Folate is 9.27 Continue iron supplementation Vitamin B12 supplementation Outpatient follow-up with PCP for further investigations including EGD/colonoscopy CODE STATUS: Full code DVT prophylaxis: Lovenox 40 mg subcutaneous nightly Disposition: Home with home health for antibiotics when HH is arranged Admission and Anticipated Discharge Date Admission Date: July 27, 2024 Subjective patient seen and examined, participating in PT Review of Systems Review of Systems: All systems reviewed are negative, apart from the ones contained in the history. Physical Exam Physical Exam: The patient is awake, alert and oriented 3, well developed and well nourished, normocephalic and atraumatic, lying in bed and in no acute distress. HEENT--PERRL, EOMI, mucous membranes and oropharynx mildly dry Neck--supple. No JVD. No bruits. Thyroid normal, trachea midline, no adenopathy. Heart--normal S1 and S2. No murmurs, rubs or gallops. Lungs--clear bilaterally, no respiratory distress, no accessory muscle use. Abdomen--normal bowel sounds and soft. Extremities--right mid tarsal amputation Dermatologic--normal skin turgor, normal color, no abnormal lymph nodes, no rash. Neurologic--cranial nerves II through XII grossly intact. Rheumatologic--normal range of motion. Psychiatric--normal affect. Results & Data Results & Data Vital Signs (Past 12 Hours) Vital Signs Temp Pulse Resp BP Pulse Ox O2 Del Method 07/31/24 07:34 152/76 H 07/31/24 07:24 98.8 F 63 18 177/85 H 97 Room Air PG Care Time/CCT Total # of Minutes Spent Total Time Spent with Patient: Total time spent is greater than 50% in coordination of care (as documented) at patient's floor/unit and/or counseling patient: Coding Level of Care Code 63728 SUB INP/OBS CARE 2/35MIN Diagnoses Acute osteomyelitis of right foot M86.171 Cellulitis L03.115 Laterality: right Site of cellulitis: extremity Site of cellulitis of extremity: lower extremity Type 2 diabetes mellitus with diabetic polyneuropathy, with long-term current use of insulin E11.42; Z79.4 Diabetes mellitus termination clerk insulin use: with termination clerk use Benign essential hypertension I10 Mixed hyperlipidemia E78.2 Hyperlipidemia type: mixed hyperlipidemia Persistent depressive disorder F34.1 Depression Type: persistent depressive disorder Benign prostatic hyperplasia with lower urinary tract symptoms, symptom details unspecified N40.1 Lower urinary tract symptom presence: symptoms present Lower urinary tract symptom detail: unspecified S/P femoral-tibial bypass Z98.890 PVD (peripheral vascular disease) I73.9 MRSA bacteremia R78.81; B95.62 Time Spent (min) 35 (2) Cellulitis Laterality: right Site of cellulitis: extremity Site of cellulitis of extremity: lower extremity Qualified Code(s): L03.115 - Cellulitis of right lower limb (3) 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 mellitus termination clerk insulin use: with termination clerk use Qualified Code(s): E11.42 - Type 2 diabetes mellitus with diabetic polyneuropathy; Z79.4 - local intermodal truck driver (current) use of insulin (5) Hyperlipidemia Hyperlipidemia type: mixed hyperlipidemia Qualified Code(s): E78.2 - Mixed hyperlipidemia (6) Depression Depression Type: persistent depressive disorder Qualified Code(s): F34.1 - Dysthymic disorder (7) BPH (benign prostatic hyperplasia) Lower urinary tract symptom presence: symptoms present Lower urinary tract symptom detail: unspecified Qualified Code(s): N40.1 - Benign prostatic hyperplasia with lower urinary tract symptoms
[2024-08-01 07:52] LABS: BUN Creatinine Ratio 22.7 (10-20); Calcium 8.5 mg/dl (8.6-10.3); Creatinine Clr Calc Pharmacy 69.2 ml/min; Potassium 3.6 mmol/L (3.5-5.1)
--- NOTE | 2024-08-01 12:15 | Hospitalist Progress Note ---
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 #Right lower extremity cellulitis/osteomyelitis MRI did not show any evidence of osteomyelitis although podiatry clinically feels patient has osteomyelitis Per vascular and podiatry, no surgical intervention. Wound culture of right foot from 07/30/2023: Preliminary results showing Staph aureus, Right foot bone biopsy from 07/30/2023: Preliminary results showing Staph aureus, IV vancomycin was switched to IV daptomycin by ID on 07/30/2024 Will need IV antibiotics for 6-8 weeks #MRSA bacteremia 2D echo from 07/28/2024 shows normal left ventricular systolic function with EF of 60 to 65% with mild concentric LVH, no significant valvular pathology, no valvular vegetations noted, no regional wall motion abnormalities noted. Blood cultures from admission on 07/26/2024 growing MRSA sensitive to vancomycin, linezolid and daptomycin Repeat blood cultures from 07/28/2024 have been negative to date #History of peripheral vascular disease status post right femoropopliteal bypass Per vascular, patient has enough collaterals for blood supply Elevated trop EKG without any ischemic changes, patient without chest pain or shortness of breath Suspect troponin is from demand ischemia 2D echo from 07/28/2024 shows normal left ventricular systolic function with EF of 60 to 65% with mild concentric LVH, no significant valvular pathology, no valvular vegetations noted, no regional wall motion abnormalities noted. HLD LDL is 65 Total cholesterol is 110 HTN Continue metoprolol. Continue losartan to 50 mg p.o. daily for better blood pressure control Monitor vital signs #Thrombocytopenia Likely secondary to infection Monitor platelet count intermittently: So far has been stable #Type 2 diabetes mellitus A1c 7.3 Pharmacy managing glycemic control #BPH Continue tamsulosin #Depression Continue sertraline #Hypokalemia Hold Dyazide diuretic Potassium replacement as needed #Iron deficiency anemia Iron level is 14 Percent saturation is fine B12 is 221 Folate is 9.27 Continue iron supplementation Vitamin B12 supplementation Outpatient follow-up with PCP for further investigations including EGD/colonoscopy CODE STATUS: Full code DVT prophylaxis: Lovenox 40 mg subcutaneous nightly Disposition: Home with home health for antibiotics when is arranged Admission and Anticipated Discharge Date Admission Date: July 27, 2024 Subjective patient seen and examined, no new complaints Review of Systems Review of Systems: All systems reviewed are negative, apart from the ones contained in the history. Physical Exam Physical Exam: The patient is awake, alert and oriented 3, well developed and well nourished, normocephalic and atraumatic, lying in bed and in no acute distress. HEENT--PERRL, EOMI, mucous membranes and oropharynx mildly dry Neck--supple. No JVD. No bruits. Thyroid normal, trachea midline, no adenopathy. Heart--normal S1 and S2. No murmurs, rubs or gallops. Lungs--clear bilaterally, no respiratory distress, no accessory muscle use. Abdomen--normal bowel sounds and soft. Extremities--right mid tarsal amputation Dermatologic--normal skin turgor, normal color, no abnormal lymph nodes, no rash. Neurologic--cranial nerves II through XII grossly intact. Rheumatologic--normal range of motion. Psychiatric--normal affect. Results & Data Results & Data Vital Signs (Past 12 Hours) Vital Signs Temp Pulse Resp BP Pulse Ox O2 Del Method 08/01/24 07:43 98.2 F 62 16 154/79 H 94 Room Air PG Care Time/CCT Total # of Minutes Spent Total Time Spent with Patient: Total time spent is greater than 50% in coordination of care (as documented) at patient's floor/unit and/or counseling patient: Coding Level of Care Code 70438 SUB INP/OBS CARE 2/35MIN Diagnoses Acute osteomyelitis of right foot M86.171 Cellulitis L03.115 Laterality: right Site of cellulitis: extremity Site of cellulitis of extremity: lower extremity Type 2 diabetes mellitus with diabetic polyneuropathy, with long-term current use of insulin E11.42; Z79.4 Diabetes mellitus usp insulin use: with usp use Benign essential hypertension I10 Mixed hyperlipidemia E78.2 Hyperlipidemia type: mixed hyperlipidemia Persistent depressive disorder F34.1 Depression Type: persistent depressive disorder Benign prostatic hyperplasia with lower urinary tract symptoms, symptom details unspecified N40.1 Lower urinary tract symptom presence: symptoms present Lower urinary tract symptom detail: unspecified S/P femoral-tibial bypass Z98.890 PVD (peripheral vascular disease) I73.9 MRSA bacteremia R78.81; B95.62 Time Spent (min) 35 (2) Cellulitis Laterality: right Site of cellulitis: extremity Site of cellulitis of extremity: lower extremity Qualified Code(s): L03.115 - Cellulitis of right lower limb (3) 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
[2024-08-02 08:43] LABS: Hematocrit (blood only) 38.9 % (42.0-52.0); Hemoglobin 12.6 g/dl (14.0-18.0); Mean Corpuscular Hemoglobin 26.2 pg (25.0-34.0); Mean Corpuscular Hgb Conc 32.4 g/dL (32.0-36.0); Mean Corpuscular Volume 80.9 fL (80.0-100.0); Mean Platelet Volume 8.9 fL (9.4-12.4); Platelet Count 183 K/uL (130-400); RDW Coefficient of Variation 17.2 % (11.5-14.5); RDW Standard Deviation 50.4 fL (36.4-46.3); Red Blood Count 4.81 M/uL (4.70-6.10); White Blood Count 6.91 K/ul (4.8-10.8)
--- NOTE | 2024-08-02 08:49 | Pharmacy Report ---
Pharmacy Glycemic Short Note 2 - Date of Service August 02, 2024 - Glycemic Short BSG Results (Last 24 hours): 08/01/24 08/01/24 08/01/24 11:36 16:29 20:14 POC Glucose 129 H 142 H 140 H 08/02/24 07:55 POC Glucose 103 H OUTPATIENT ANTIDIABETIC REGIMEN: * Insulin glargine 20 units SC Daily * A1c 7.3% (07/28/24) ASSESSMENT: 08/02: * Osmin received 20 units of insulin yesterday, 12 of which were basal. BSGs were [phone] mg/dL. * Fasting BSG this AM is below goal at 103 mg/dL. Will reduce basal by 20% this AM. * Tolerating T2DM diet. Remains on Daptomycin. No change to Novolog. 07/30: * Patient received total of 20 units of insulin yesterday, of which 12 units were basal * BSGs yesterday stable, reasonable to continue current regimen for now 07/27: * 79 yo M with ongoing RLE wounds, required amputation of all digits and femoropopliteal bypass secondary to severity of disease. 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 Oakes - concern for worsening of his wounds, r/o OM, on Vanc/Zosyn now. * Type 2 DM, ordered updated A1c, hyperglycemic last night, fasting at goal this morning (120mg/dl), begin with home basal and NovoLog, may need to decrease basal as inpatient as patient is also receiving prandial/correctional insulin here. PLAN FOR INPATIENT GLYCEMIC CONTROL: * Basal insulin * Lantus 10 units SC daily * Bolus insulin * NovoLog per scale ACHS or Q6hrs while NPO * Goal Range: Low 120 mg/dL - High 150 mg/dL * Correction Factor: 35 mg/dL/unit * Nutritional / Prandial insulin per carb ratio of 1 unit per 20 grams CHO consumed
[2024-08-02 08:56] LABS: BUN Creatinine Ratio 21.1 (10-20); Calcium 8.9 mg/dl (8.6-10.3); Creatinine Clr Calc Pharmacy 67.6 ml/min; Potassium 3.7 mmol/L (3.5-5.1)
[2024-08-02] MEDS: LANTUS PER UNIT CHARGE SQ SCH (09:12)
--- NOTE | 2024-08-02 12:03 | Hospitalist Progress Note ---
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 #Right lower extremity cellulitis/osteomyelitis MRI did not show any evidence of osteomyelitis although podiatry clinically feels patient has osteomyelitis Per vascular and podiatry, no surgical intervention. Wound culture of right foot from 07/30/2023: Preliminary results showing Staph aureus, Right foot bone biopsy from 07/30/2023: Preliminary results showing Staph aureus, IV vancomycin was switched to IV daptomycin by ID on 07/30/2024 6 weeks of abx with daptomycin 600mg Q 24 hrs, start 07/28, end 09/07 #Sepsis due to Methicillin resistant Staphylococcus aureus, POA 2D echo from 07/28/2024 shows normal left ventricular systolic function with EF of 60 to 65% with mild concentric LVH, no significant valvular pathology, no valvular vegetations noted, no regional wall motion abnormalities noted. Blood cultures from admission on 07/26/2024 growing MRSA sensitive to vancomycin, linezolid and daptomycin Repeat blood cultures from 07/28/2024 have been negative to date #History of peripheral vascular disease status post right femoropopliteal bypass Per vascular, patient has enough collaterals for blood supply Elevated trop EKG without any ischemic changes, patient without chest pain or shortness of breath Suspect troponin is from demand ischemia 2D echo from 07/28/2024 shows normal left ventricular systolic function with EF of 60 to 65% with mild concentric LVH, no significant valvular pathology, no valvular vegetations noted, no regional wall motion abnormalities noted. HLD LDL is 65 Total cholesterol is 110 HTN Continue metoprolol. Continue losartan to 50 mg p.o. daily for better blood pressure control Monitor vital signs #Thrombocytopenia Likely secondary to infection Monitor platelet count intermittently: So far has been stable #Type 2 diabetes mellitus A1c 7.3 Pharmacy managing glycemic control #BPH Continue tamsulosin #Depression Continue sertraline #Hypokalemia Hold Dyazide diuretic Potassium replacement as needed #Iron deficiency anemia Iron level is 14 Percent saturation is fine B12 is 221 Folate is 9.27 Continue iron supplementation Vitamin B12 supplementation Outpatient follow-up with PCP for further investigations including EGD/colonoscopy CODE STATUS: Full code DVT prophylaxis: Lovenox 40 mg subcutaneous nightly Disposition: d/c to center care on Monday for antibiotics Admission and Anticipated Discharge Date Admission Date: July 27, 2024 Subjective patient seen and examined, no new complaints Review of Systems Review of Systems: All systems reviewed are negative, apart from the ones contained in the history. Physical Exam Physical Exam: The patient is awake, alert and oriented 3, well developed and well nourished, normocephalic and atraumatic, lying in bed and in no acute distress. HEENT--PERRL, EOMI, mucous membranes and oropharynx mildly dry Neck--supple. No JVD. No bruits. Thyroid normal, trachea midline, no adenopathy. Heart--normal S1 and S2. No murmurs, rubs or gallops. Lungs--clear bilaterally, no respiratory distress, no accessory muscle use. Abdomen--normal bowel sounds and soft. Extremities--right mid tarsal amputation Dermatologic--normal skin turgor, normal color, no abnormal lymph nodes, no rash. Neurologic--cranial nerves II through XII grossly intact. Rheumatologic--normal range of motion. Psychiatric--normal affect. Results & Data Results & Data Vital Signs (Past 12 Hours) Vital Signs Temp Pulse Resp BP Pulse Ox O2 Del Method 08/02/24 07:55 98.2 F 73 16 167/78 H 94 Room Air PG Care Time/CCT Total # of Minutes Spent Total Time Spent with Patient: Total time spent is greater than 50% in coordination of care (as documented) at patient's floor/unit and/or counseling patient: Coding Level of Care Code 78190 SUB INP/OBS CARE 2/35MIN Diagnoses Acute osteomyelitis of right foot M86.171 Cellulitis L03.115 Laterality: right Site of cellulitis: extremity Site of cellulitis of extremity: lower extremity Type 2 diabetes mellitus with diabetic polyneuropathy, with long-term current use of insulin E11.42; Z79.4 Diabetes mellitus fdc insulin use: with fdc use Benign essential hypertension I10 Mixed hyperlipidemia E78.2 Hyperlipidemia type: mixed hyperlipidemia Persistent depressive disorder F34.1 Depression Type: persistent depressive disorder Benign prostatic hyperplasia with lower urinary tract symptoms, symptom details unspecified N40.1 Lower urinary tract symptom presence: symptoms present Lower urinary tract symptom detail: unspecified S/P femoral-tibial bypass Z98.890 PVD (peripheral vascular disease) I73.9 MRSA bacteremia R78.81; B95.62 Time Spent (min) 35 (2) Cellulitis Laterality: right Site of cellulitis: extremity Site of cellulitis of extremity: lower extremity Qualified Code(s): L03.115 - Cellulitis of right lower limb (3) 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 mellitus fdc insulin use: with ferry 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
--- NOTE | 2024-08-02 22:45 | Podiatry Progress Note ---
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 - Discussed at length, again, risks and benefits of antibiotics versus amputation. - With how proximal his TMA is, a Chopart amputation versus isolated 5th metatarsal resection would be necessary to resect adequate bone - This leaves a more difficult limb for prosthesis with no functional benefit compared to BKA/AKA, with continued risk of non-healing - Patient voices understanding and is planning on d/c to [facility] for 6-8 weeks of IV antibiotics, with port placement pending. - Wound cleaned and redressed with Optifoam border gauze today. Admission and Anticipated Discharge Date Admission Date: July 27, 2024 Subjective patient seen and examined, no new complaints. Had biopsy of right foot earlier in the week. Results still pending. Now wants to try limb salvage rather than amputation, based on imaging studies and vascular medicine input. Feels better than on admission with IV antibiotics. Review of Systems Constitutional: + fever, + fatigue and + weakness Eyes: no problem reported Ear, Nose, Mouth, Throat: no problem reported Respiratory: no problem reported Cardiovascular: + edema; no calf pain and no claudicatio n Gastrointestinal: no nausea and no vomiting Genitourinary: no problem reported Musculoskeletal: + limited range of motion Integumentary: + skin ulcer and + erythema Neurologic: + generalized weakness and + numbness Psychiatric: no problem reported Endocrine: no problem reported Physical Exam Physical Exam: Lower extremity focused exam: DP/PT pulses nonpalpable. TMA site without dehiscence or drainage/bleeding. New deep probing ulceration noted to the plantar lateral TMA stump, underlying the distal aspect of the fifth metatarsal. The wound, after light debridement and probing, extends to the bone directly, with purulent drainage expressed along the lateral aspect of the diaphysis. Proximal dorsal ulceration is improved, 90% granular, 10% necrotic and measuring only 1 cm in diameter. This necrosis is superficial, overlying the EHL tendon sheath. Ascending cellulitis is noted to the lower leg, consistent with the overall infected nature of the limb. 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) Chest (Breasts): normal inspection/palpation of breasts Gastrointestinal (Abdomen): Inspection/Auscultation: abdomen normal to inspection; abdomen not distended Percussion/Palpation: no guarding Musculoskeletal: Head/Neck/Chest: normocephalic and head atraumatic Extremities: + limited ROM of extremities, + muscle atrophy and + foot abnormality (TMA noted) Skin: + ulcer, + skin tightening, + skin atrop hy, + erythema and + eschar Neurologic: plantar reflexes intact bilaterally and moves all extremities; + abnormal sensation to monofilament Psychiatric: A+Ox3, euthymic affect Results & Data Results & Data Vital Signs (Past 12 Hours) Vital Signs Temp Pulse Resp BP Pulse Ox O2 Del Method 08/02/24 19:25 37.2 C 72 18 145/71 H 96 Room Air 08/02/24 15:32 37.1 C 72 16 171/78 H 96 Room Air (1) 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
[2024-08-03 07:23] LABS: Hematocrit (blood only) 38.2 % (42.0-52.0); Hemoglobin 12.1 g/dl (14.0-18.0); Mean Corpuscular Hemoglobin 25.6 pg (25.0-34.0); Mean Corpuscular Hgb Conc 31.7 g/dL (32.0-36.0); Mean Corpuscular Volume 80.9 fL (80.0-100.0); Mean Platelet Volume 8.7 fL (9.4-12.4); Platelet Count 181 K/uL (130-400); RDW Coefficient of Variation 17.3 % (11.5-14.5); RDW Standard Deviation 50.8 fL (36.4-46.3); Red Blood Count 4.72 M/uL (4.70-6.10); White Blood Count 9.24 K/ul (4.8-10.8)
[2024-08-03 07:45] LABS: BUN Creatinine Ratio 19.3 (10-20); Calcium 8.9 mg/dl (8.6-10.3); Creatinine Clr Calc Pharmacy 69.2 ml/min; Potassium 3.8 mmol/L (3.5-5.1)
--- NOTE | 2024-08-03 11:09 | Hospitalist Progress Note ---
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 #Right lower extremity cellulitis/osteomyelitis MRI did not show any evidence of osteomyelitis although podiatry clinically feels patient has osteomyelitis Per vascular and podiatry, no surgical intervention. Wound culture of right foot from 07/30/2023: Preliminary results showing Staph aureus, Right foot bone biopsy from 07/30/2023: Preliminary results showing Staph aureus, IV vancomycin was switched to IV daptomycin by ID on 07/30/2024 6 weeks of abx with daptomycin 600mg Q 24 hrs, start 07/28, end 09/07 #Sepsis due to Methicillin resistant Staphylococcus aureus, POA 2D echo from 07/28/2024 shows normal left ventricular systolic function with EF of 60 to 65% with mild concentric LVH, no significant valvular pathology, no valvular vegetations noted, no regional wall motion abnormalities noted. Blood cultures from admission on 07/26/2024 growing MRSA sensitive to vancomycin, linezolid and daptomycin Repeat blood cultures from 07/28/2024 have been negative to date #History of peripheral vascular disease status post right femoropopliteal bypass Per vascular, patient has enough collaterals for blood supply Elevated trop EKG without any ischemic changes, patient without chest pain or shortness of breath Suspect troponin is from demand ischemia 2D echo from 07/28/2024 shows normal left ventricular systolic function with EF of 60 to 65% with mild concentric LVH, no significant valvular pathology, no valvular vegetations noted, no regional wall motion abnormalities noted. HLD LDL is 65 Total cholesterol is 110 HTN Continue metoprolol. Continue losartan to 50 mg p.o. daily for better blood pressure control Monitor vital signs #Thrombocytopenia Likely secondary to infection Monitor platelet count intermittently: So far has been stable #Type 2 diabetes mellitus A1c 7.3 Pharmacy managing glycemic control #BPH Continue tamsulosin #Depression Continue sertraline #Hypokalemia Hold Dyazide diuretic Potassium replacement as needed #Iron deficiency anemia Iron level is 14 Percent saturation is fine B12 is 221 Folate is 9.27 Continue iron supplementation Vitamin B12 supplementation Outpatient follow-up with PCP for further investigations including EGD/colonoscopy CODE STATUS: Full code DVT prophylaxis: Lovenox 40 mg subcutaneous nightly Disposition: d/c to center care on Monday for antibiotics Admission and Anticipated Discharge Date Admission Date: July 27, 2024 Subjective patient seen and examined, no new complaints today Review of Systems Review of Systems: All systems reviewed are negative, apart from the ones contained in the history. Physical Exam Physical Exam: The patient is awake, alert and oriented 3, well developed and well nourished, normocephalic and atraumatic, lying in bed and in no acute distress. HEENT--PERRL, EOMI, mucous membranes and oropharynx mildly dry Neck--supple. No JVD. No bruits. Thyroid normal, trachea midline, no adenopathy. Heart--normal S1 and S2. No murmurs, rubs or gallops. Lungs--clear bilaterally, no respiratory distress, no accessory muscle use. Abdomen--normal bowel sounds and soft. Extremities--right mid tarsal amputation Dermatologic--normal skin turgor, normal color, no abnormal lymph nodes, no rash. Neurologic--cranial nerves II through XII grossly intact. Rheumatologic--normal range of motion. Psychiatric--normal affect. Results & Data Results & Data Vital Signs (Past 12 Hours) Vital Signs Temp Pulse Resp BP Pulse Ox O2 Del Method 08/03/24 07:55 98.6 F 67 18 148/74 H 96 Room Air PG Care Time/CCT Total # of Minutes Spent Total Time Spent with Patient: Total time spent is greater than 50% in coordination of care (as documented) at patient's floor/unit and/or counseling patient: Coding Level of Care Code 55511 SUB INP/OBS CARE 2/35MIN Diagnoses Acute osteomyelitis of right foot M86.171 Cellulitis L03.115 Laterality: right Site of cellulitis: extremity Site of cellulitis of extremity: lower extremity Type 2 diabetes mellitus with diabetic polyneuropathy, with long-term current use of insulin E11.42; Z79.4 Diabetes mellitus terminal 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 supervisor insulin use: with terminal gauger supervisor use Benign essential hypertension I10 Mixed hyperlipidemia E78.2 Hyperlipidemia type: mixed hyperlipidemia Persistent depressive disorder F34.1 Depression Type: persistent depressive disorder Benign prostatic hyperplasia with lower urinary tract symptoms, symptom details unspecified N40.1 Lower urinary tract symptom presence: symptoms present Lower urinary tract symptom detail: unspecified S/P femoral-tibial bypass Z98.890 PVD (peripheral vascular disease) I73.9 MRSA bacteremia R78.81; B95.62 Time Spent (min) 35 (2) Cellulitis Laterality: right Site of cellulitis: extremity Site of cellulitis of extremity: lower extremity Qualified Code(s): L03.115 - Cellulitis of right lower limb (3) 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 mellitus terminal gauger supervisor insulin use: with terminal gauger supervisor use Qualified Code(s): E11.42 - Type 2 diabetes mellitus with diabetic polyneuropathy; Z79.4 - intermediate frame tender (current) use of insulin (5) Hyperlipidemia Hyperlipidemia type: mixed hyperlipidemia Qualified Code(s): E78.2 - Mixed hyperlipidemia (6) Depression Depression Type: persistent depressive disorder Qualified Code(s): F34.1 - Dysthymic disorder (7) BPH (benign prostatic hyperplasia) Lower urinary tract symptom presence: symptoms present Lower urinary tract symptom detail: unspecified Qualified Code(s): N40.1 - Benign prostatic hyperplasia with lower urinary tract symptoms
--- NOTE | 2024-08-04 13:11 | Hospitalist Progress Note ---
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 #Right lower extremity cellulitis/osteomyelitis MRI did not show any evidence of osteomyelitis although podiatry clinically feels patient has osteomyelitis Per vascular and podiatry, no surgical intervention. Wound culture of right foot from 07/30/2023: Preliminary results showing Staph aureus, Right foot bone biopsy from 07/30/2023: Preliminary results showing Staph aureus, IV vancomycin was switched to IV daptomycin by ID on 07/30/2024 6 weeks of abx with daptomycin 600mg Q 24 hrs, start 07/28, end 09/07 #Sepsis due to Methicillin resistant Staphylococcus aureus, POA 2D echo from 07/28/2024 shows normal left ventricular systolic function with EF of 60 to 65% with mild concentric LVH, no significant valvular pathology, no valvular vegetations noted, no regional wall motion abnormalities noted. Blood cultures from admission on 07/26/2024 growing MRSA sensitive to vancomycin, linezolid and daptomycin Repeat blood cultures from 07/28/2024 have been negative to date #History of peripheral vascular disease status post right femoropopliteal bypass Per vascular, patient has enough collaterals for blood supply Elevated trop EKG without any ischemic changes, patient without chest pain or shortness of breath Suspect troponin is from demand ischemia 2D echo from 07/28/2024 shows normal left ventricular systolic function with EF of 60 to 65% with mild concentric LVH, no significant valvular pathology, no valvular vegetations noted, no regional wall motion abnormalities noted. HLD LDL is 65 Total cholesterol is 110 HTN Continue metoprolol. Continue losartan to 50 mg p.o. daily for better blood pressure control Monitor vital signs #Thrombocytopenia Likely secondary to infection Monitor platelet count intermittently: So far has been stable #Type 2 diabetes mellitus A1c 7.3 Pharmacy managing glycemic control #BPH Continue tamsulosin #Depression Continue sertraline #Hypokalemia Hold Dyazide diuretic Potassium replacement as needed #Iron deficiency anemia Iron level is 14 Percent saturation is fine B12 is 221 Folate is 9.27 Continue iron supplementation Vitamin B12 supplementation Outpatient follow-up with PCP for further investigations including EGD/colonoscopy CODE STATUS: Full code DVT prophylaxis: Lovenox 40 mg subcutaneous nightly Disposition: d/c to center care on Monday for antibiotics Admission and Anticipated Discharge Date Admission Date: July 27, 2024 Subjective patient seen and examined, no new complaints today Review of Systems Review of Systems: All systems reviewed are negative, apart from the ones contained in the history. Physical Exam Physical Exam: The patient is awake, alert and oriented 3, well developed and well nourished, normocephalic and atraumatic, lying in bed and in no acute distress. HEENT--PERRL, EOMI, mucous membranes and oropharynx mildly dry Neck--supple. No JVD. No bruits. Thyroid normal, trachea midline, no adenopathy. Heart--normal S1 and S2. No murmurs, rubs or gallops. Lungs--clear bilaterally, no respiratory distress, no accessory muscle use. Abdomen--normal bowel sounds and soft. Extremities--right mid tarsal amputation Dermatologic--normal skin turgor, normal color, no abnormal lymph nodes, no rash. Neurologic--cranial nerves II through XII grossly intact. Rheumatologic--normal range of motion. Psychiatric--normal affect. Results & Data Results & Data Vital Signs (Past 12 Hours) Vital Signs Temp Pulse Resp BP Pulse Ox O2 Del Method 08/04/24 08:56 68 94 Room Air 08/04/24 08:30 Room Air 08/04/24 07:10 98.8 F 39 L 18 154/75 H 97 Room Air PG Care Time/CCT Total # of Minutes Spent Total Time Spent with Patient: Total time spent is greater than 50% in coordination of care (as documented) at patient's floor/unit and/or counseling patient: Coding Level of Care Code 15274 SUB INP/OBS CARE 2/35MIN Diagnoses Acute osteomyelitis of right foot M86.171 Cellulitis L03.115 Laterality: right Site of cellulitis: extremity Site of cellulitis of extremity: lower extremity Type 2 diabetes mellitus with diabetic polyneuropathy, with long-term current use of insulin E11.42; Z79.4 Diabetes mellitus retirement insulin use: with retirement use Benign essential hypertension I10 Mixed hyperlipidemia E78.2 Hyperlipidemia type: mixed hyperlipidemia Persistent depressive disorder F34.1 Depression Type: persistent depressive disorder Benign prostatic hyperplasia with lower urinary tract symptoms, symptom details unspecified N40.1 Lower urinary tract symptom presence: symptoms present Lower urinary tract symptom detail: unspecified S/P femoral-tibial bypass Z98.890 PVD (peripheral vascular disease) I73.9 MRSA bacteremia R78.81; B95.62 Time Spent (min) 35 (2) Cellulitis Laterality: right Site of cellulitis: extremity Site of cellulitis of extremity: lower extremity Qualified Code(s): L03.115 - Cellulitis of right lower limb (3) 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 mellitus retirement insulin use: with retirement use Qualified Code(s): E11.42 - Type 2 diabetes mellitus with diabetic polyneuropathy; Z79.4 - 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
--- NOTE | 2024-08-05 12:24 | Hospitalist Progress Note ---
Date of Service August 05, 2024 Assessment & Plan (1) Open wound of right foot with complication: (2) Cellulitis: Plan Assessment & Plan (1) Acute osteomyelitis of right foot: (2) Cellulitis: (3) Type 2 diabetes mellitus with diabetic polyneuropathy: (4) Benign essential hypertension: (5) Hyperlipidemia: (6) Depression: (7) BPH (benign prostatic hyperplasia): (8) S/P femoral-tibial bypass: (9) PVD (peripheral vascular disease): (10) MRSA bacteremia: Plan 79-year-old male with past medical history of type 2 diabetes mellitus with polyneuropathy, peripheral vascular disease status post right femoropopliteal bypass as well as 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 #Right lower extremity cellulitis/osteomyelitis MRI did not show any evidence of osteomyelitis although podiatry clinically feels patient has osteomyelitis Per vascular and podiatry, no surgical intervention. Wound culture of right foot from 07/30/2023: Preliminary results showing Staph aureus, Right foot bone biopsy from 07/30/2023: Preliminary results showing Staph aureus, IV vancomycin was switched to IV daptomycin by ID on 07/30/2024 6 weeks of abx with daptomycin 600mg Q 24 hrs, start 07/28, end 09/07 #Sepsis due to Methicillin resistant Staphylococcus aureus, POA 2D echo from 07/28/2024 shows normal left ventricular systolic function with EF of 60 to 65% with mild concentric LVH, no significant valvular pathology, no valvular vegetations noted, no regional wall motion abnormalities noted. Blood cultures from admission on 07/26/2024 growing MRSA sensitive to vancomycin, linezolid and daptomycin Repeat blood cultures from 07/28/2024 have been negative to date #History of peripheral vascular disease status post right femoropopliteal bypass Per vascular, patient has enough collaterals for blood supply Elevated trop EKG without any ischemic changes, patient without chest pain or shortness of breath Suspect troponin is from demand ischemia 2D echo from 07/28/2024 shows normal left ventricular systolic function with EF of 60 to 65% with mild concentric LVH, no significant valvular pathology, no valvular vegetations noted, no regional wall motion abnormalities noted. HLD LDL is 65 Total cholesterol is 110 HTN Continue metoprolol. Continue losartan to 50 mg p.o. daily for better blood pressure control Monitor vital signs #Thrombocytopenia Likely secondary to infection Monitor platelet count intermittently: So far has been stable #Type 2 diabetes mellitus A1c 7.3 Pharmacy managing glycemic control #BPH Continue tamsulosin #Depression Continue sertraline #Hypokalemia Hold Dyazide diuretic Potassium replacement as needed #Iron deficiency anemia Iron level is 14 Percent saturation is fine B12 is 221 Folate is 9.27 Continue iron supplementation Vitamin B12 supplementation Outpatient follow-up with PCP for further investigations including EGD/colonoscopy CODE STATUS: Full code DVT prophylaxis: Lovenox 40 mg subcutaneous nightly Disposition: d/c to [facility] on Monday for antibiotics Admission and Anticipated Discharge Date Admission Date: July 27, 2024 Subjective patient seen and examined, no new complaints today Review of Systems Review of Systems: All systems reviewed are negative, apart from the ones contained in the history. Physical Exam Physical Exam: The patient is awake, alert and oriented 3, well developed and well nourished, normocephalic and atraumatic, lying in bed and in no acute distress. HEENT--PERRL, EOMI, mucous membranes and oropharynx mildly dry Neck--supple. No JVD. No bruits. Thyroid normal, trachea midline, no adenopathy. Heart--normal S1 and S2. No murmurs, rubs or gallops. Lungs--clear bilaterally, no respiratory distress, no accessory muscle use. Abdomen--normal bowel sounds and soft. Extremities--right mid tarsal amputation Dermatologic--normal skin turgor, normal color, no abnormal lymph nodes, no rash. Neurologic--cranial nerves II through XII grossly intact. Rheumatologic--normal range of motion. Psychiatric--normal affect. Results & Data Results & Data Vital Signs (Past 12 Hours) Vital Signs Temp Pulse Resp BP Pulse Ox O2 Del Method 08/05/24 08:36 80 112/70 08/05/24 07:19 98.4 F 67 18 152/77 H 96 Room Air PG Care Time/CCT Total # of Minutes Spent Total Time Spent with Patient: Total time spent is greater than 50% in coordination of care (as documented) at patient's floor/unit and/or counseling patient: Coding Level of Care Code 11048 SUB INP/OBS CARE 2/35MIN Diagnoses Open wound of right foot with complication, initial encounter S91.301A Encounter type: initial encounter Cellulitis L03.115 Laterality: right Site of cellulitis: extremity Site of cellulitis of extremity: lower extremity Time Spent (min) 35 (1) Open wound of right foot with complication Encounter type: initial encounter Qualified Code(s): S91.301A - Unspecified open wound, right foot, initial encounter (2) Cellulitis Laterality: right Site of cellulitis: extremity Site of cellulitis of extr emity: lower extremity Qualified Code(s): L03.115 - Cellulitis of right lower limb
--- NOTE | 2024-08-05 12:24 | Pharmacy Report ---
Pharmacy Glycemic Short Note 2 - Date of Service August 05, 2024 - Glycemic Short BSG Results (Last 24 hours): 08/04/24 08/04/24 08/05/24 16:42 20:45 07:46 POC Glucose 118 H 106 H 118 H 08/05/24 11:31 POC Glucose 152 H OUTPATIENT ANTIDIABETIC REGIMEN: * Insulin glargine 20 units SC Daily * A1c 7.3% (07/28/24) ASSESSMENT: 08/05: * Osmin received a total of 18 units of insulin (10 units were basal and 8 units were bolus). BSGs were 040-780-769-106mg/dL. * Fasting BSG this morning was 118mg/dL. Will continue basal and bolus insulin regimens without change. 08/02: * Osmin received 20 units of insulin yesterday, 12 of which were basal. BSGs were [phone] mg/dL. * Fasting BSG this AM is below goal at 103 mg/dL. Will reduce basal by 20% this AM. * Tolerating T2DM diet. Remains on Daptomycin. No change to Novolog. 07/30: * Patient received total of 20 units of insulin yesterday, of which 12 units were basal * BSGs yesterday stable, reasonable to continue current regimen for now 07/27: * 79 yo M with ongoing RLE wounds, required amputation of all digits and femoropopliteal bypass secondary to severity of disease. 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 Oakes - concern for worsening of his wounds, r/o OM, on Vanc/Zosyn now. * Type 2 DM, ordered updated A1c, hyperglycemic last night, fasting at goal this morning (120mg/dl), begin with home basal and NovoLog, may need to decrease basal as inpatient as patient is also receiving prandial/correctional insulin here. PLAN FOR INPATIENT GLYCEMIC CONTROL: * Basal insulin * Lantus 10 units SC daily * Bolus insulin * NovoLog per scale ACHS or Q6hrs while NPO * Goal Range: Low 120 mg/dL - High 150 mg/dL * Correction Factor: 35 mg/dL/unit * Nutritional / Prandial insulin per carb ratio of 1 unit per 20 grams CHO consumed
[2024-08-06 07:41] VITALS: BP 154/76; RESP 16; TEMP 98.2; O2SAT 94
--- NOTE | 2024-08-06 12:07 | Discharge Summary ---
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 Patient send helps provide history. States that the patient has had ongoing infections and wounds in the R foot, and which did require amputation of multiple digits and a bypass in February 2024. On the day of arrival, he had seen his foot and ankle surgeon, Dr. Oakes, who was concerned that the patient's foot and wounds looked worse than they had previously. Patient states that he is having some sharp pain in the R foot, more so on the lateral aspect of the R foot. He did have drainage out of this area the day DELIMER, yellow in color. He also has had a fever of 101.2 F starting day of arrival. His son notes that the patient has had increased weakness starting at 1400 the day of arrival. This was so significant, that the patient was unable to walk on his own and the son had to assist in ambulating. Patient states that his pain has improved somewhat since being off of his foot. He does feel like he has been having difficulty ambulating on the day of arrival. He does feel that he is maybe not as strong as he normally is. Of note, does have occasional constipation, having a normal bowel movement approximately every 3 days but this does alternate every once in a while depending on what the patient eats per his report. He has not had chills. No chest pain, SOB, palpitations, abdominal pain, N/V/D, abnormal nu mbness/tingling, LUTS, URI symptoms, or syncope. ED evaluation reveals no leukocytosis, H&H 13.1/40.8; PT/INR WNL; CMP sodium 133, glucose 148, bilirubin 1.2; lactate 2.1; troponin 28.3; procalcitonin 0.35; BioFire negative; CXR normal; R foot XR no acute bony abnormalities, amputation changes; EKG NSR at 95 bpm.; Provided with 1L NSS, vancomycin IV, ceftriaxone 2 g IV, and acetaminophen 1 g IV in ED. Admission Exam (Per Admitting) Constitutional The patient is awake, alert and oriented 3, well developed and well nourished, normocephalic and atraumatic, lying in bed and in no acute distress. HEENT--PERRL, EOMI, mucous membranes and oropharynx mildly dry Neck--supple. No JVD. No bruits. Thyroid normal, trachea midline, no adenopathy. Heart--normal S1 and S2. No murmurs, rubs or gallops. Lungs--clear bilaterally, no respiratory distress, no accessory muscle use. Abdomen--normal bowel sounds and soft. Extremities--mid tarsal amputation. Dermatologic--normal skin turgor, normal color, no abnormal lymph nodes, no rash. Neurologic--cranial nerves II through XII grossly intact. Rheumatologic--normal range of motion. Psychiatric--normal affect. Discharge Data Consultations 07/26/24 18:52 ED Decision to Admit Stat 07/26/24 22:30 Consult Podiatry Routine 07/27/24 08:42 Consult Orthopedic Surgery Routine 07/27/24 13:08 Consult Infectious Diseases Routine 07/27/24 13:09 Consult Vascular Surgery Routine Hospital Course (1) Open wound of right foot with complication: (2) Cellulitis: Plan Assessment & Plan (1) Acute osteomyelitis of right foot: (2) Cellulitis: (3) Type 2 diabetes mellitus with diabetic polyneuropathy: (4) Benign essential hypertension: (5) Hyperlipidemia: (6) Depression: (7) BPH (benign prostatic hyperplasia): (8) S/P femoral-tibial bypass: (9) PVD (peripheral vascular disease): (10) MRSA bacteremia: Plan 79-year-old male with past medical history of type 2 diabetes mellitus with polyneuropathy, peripheral vascular disease status post right femoropopliteal bypass as well as 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 #Right lower extremity cellulitis/osteomyelitis MRI did not show any evidence of osteomyelitis although podiatry clinically feels patient has osteomyelitis Per vascular and podiatry, no surgical intervention. Wound culture of right foot from 07/30/2023: Preliminary results showing Staph aureus, Right foot bone biopsy from 07/30/2023: Preliminary results showing Staph aureus, IV vancomycin was switched to IV daptomycin by ID on 07/30/2024 6 weeks of abx with daptomycin 600mg Q 24 hrs, start 07/28, end 09/07 #Sepsis due to Methicillin resistant Staphylococcus aureus, POA 2D echo from 07/28/2024 shows normal left ventricular systolic function with EF of 60 to 65% with mild concentric LVH, no significant valvular pathology, no valvular vegetations noted, no regional wall motion abnormalities noted. Blood cultures from admission on 07/26/2024 growing MRSA sensitive to vancomycin, linezolid and daptomycin Repeat blood cultures from 07/28/2024 have been negative to date #History of peripheral vascular disease status post right femoropopliteal bypass Per vascular, patient has enough collaterals for blood supply Elevated trop EKG without any ischemic changes, patient without chest pain or shortness of breath Suspect troponin is from demand ischemia 2D echo from 07/28/2024 shows normal left ventricular systolic function with EF of 60 to 65% with mild concentric LVH, no significant valvular pathology, no valvular vegetations noted, no regional wall motion abnormalities noted. HLD LDL is 65 Total cholesterol is 110 HTN Continue metoprolol. Continue losartan to 50 mg p.o. daily for better blood pressure control Monitor vital signs #Thrombocytopenia Likely secondary to infection Monitor platelet count intermittently: So far has been stable #Type 2 diabetes mellitus A1c 7.3 Pharmacy managing glycemic control #BPH Continue tamsulosin #Depression Continue sertraline #Hypokalemia Hold Dyazide diuretic Potassium replacement as needed #Iron deficiency anemia Iron level is 14 Percent saturation is fine B12 is 221 Folate is 9.27 Continue iron supplementation Vitamin B12 supplementation Outpatient follow-up with PCP for further investigations including EGD/colonoscopy CODE STATUS: Full code DVT prophylaxis: Lovenox 40 mg subcutaneous nightly Disposition: d/c to center care on Monday for antibiotics Coding Level of Care Code 54074 INP/OBS DISCH >30 MIN Diagnoses Open wound of right foot with complication, initial encounter S91.301A Encounter type: initial encounter Cellulitis L03.115 Laterality: right Site of cellulitis: extremity Site of cellulitis of extremity: lower extremity Time Spent (min) 35
[2024-08-06 13:20] VITALS: PULSE 95
== END 2024-08-06 16:12 | DRG 854 ==
LOC: 3N 16:53 → ED 16:53 → SUATTDRO 19:57 → 3N 21:31 → SUATTDRO 07-27 17:16

== ENCOUNTER 2024-10-28 12:42 | Inpatient (IN) ==
--- NOTE | 2024-10-28 13:01 | Emergency Department Note ---
Impression & Plan Bacteremia due to Gram-positive bacteria, Neck pain, Acute alteration in mental status ED Provider Note NAME: JULIO CESAR LAGOS AGE: 79 SEX: M : 1945 ARRIVES VIA: Ambulance INFORMANT: Patient, EMS ED PROVIDER(S): Mason Harden DO CHIEF COMPLAINT: Bacteremia HPI: The patient is a 79-year-old male who presented to the emergency department for bacteremia. The patient was seen in our facility yesterday for neck pain. He had a complete workup which included blood cultures. The patient's laboratory studies and vital signs did not reflect acute infection so the patient was discharged. He was called to come back today because his blood cultures grew out MRSA. The patient had a recent wewbh-dao-lsjo amputation. At that time his foot culture did grow out MRSA. ROS: See above HPI for pertinent positives & negatives. A total of 10 systems reviewed and were otherwise negative. PAST MEDICAL HISTORY: See Below PAST SURGICAL HISTORY: See Below FAMILY HISTORY: See Below SOCIAL HISTORY: See Below HOME MEDICATIONS: See Below ALLERGIES: See Below VITALS: See Below PHYSICAL EXAMINATION: GENERAL: The patient is listless. He does not follow commands well. EYES: The conjunctivae are clear. The pupils are round and reactive. EARS, NOSE, MOUTH AND THROAT: The nose is without any evidence of any deformity. Mucous membranes are dry. NECK: The neck is nontender and supple. RESPIRATORY: Normal respiratory effort is noted there is no evidence of wheezing rhonchi or rales CARDIOVASCULAR: Regular rate and rhythm noted there no murmurs rubs or gallops normal S1 normal S2. GASTROINTESTINAL: The abdomen is soft. Abdomen is nontender. MUSCULOSKELETAL/EXTREMITIES: Right lower extremity amputation were noted. Wound geovany are in place. There is no erythema or drainage noted. SKIN: There is no significant pedal edema on the left. NEUROLOGIC: The patient is listless and slow to respond to commands. MEDICAL DECISION MAKING: The patient is a 79-year-old male who presented to the emergency department for an evaluation of altered mental status. The patient was seen in our facility yesterday because of neck pain. He did have a complete workup but at that time he did have blood cultures drawn. The patient has a history of a right foot infection that did have MRSA. This was treated with surgery but then ultimately the patient had an [id number] amputation 3 weeks ago. The patient was found to have gram-positive cocci in his blood. He was called to return by pharmacy. The patient was treated with IV fluids and IV antibiotics. He was reevaluated multiple times. On reevaluation he was much more awake and conversant. He recognized his son and is moving all extremities well. The patient was not felt to be a good candidate for outpatient management. He was treated I discussed his condition with the on-call [facility] hospitalist. Triage Nursing notes reviewed. Prior medical records reviewed Vital Signs: reviewed and remarkable for elevated blood pressure and tachycardia. Differential diagnosis: Viral syndrome, otitis, pharyngitis, pneumonia, influenza, meningitis, urinary tract infection, sepsis, bacteremia, as well as other pathologies. ER treatment provided: See below Diagnostics interpreted by me: ECG: EKG was obtained in the emergency department. My interpretation sinus tachycardia at 105 bpm. There was no ectopy. Nonspecific interventricular conduction delay was noted. This was compared to a tracing from October 07, 2024. No changes were noted. Cardiac Monitoring: An order was placed for continuous cardiac monitoring. The monitor shows a rate of 107 bpm with sinus tachycardia. Laboratory studies: As stated above and show below. Imaging studies: See below. Radiographic imaging was reviewed by myself Consultation(s): I discussed this case with Dr. Caputo who is on-call for the [facility]. Past Med/Surg History Problem List (Updated 10/28/24 @ 16:19 by Mason Harden DO) Acute alteration in mental status (Acute) Neck pain (Acute) Bacteremia due to Gram-positive bacteria (Acute) Neck pain (Acute) Anemia Amputation above knee ROSALINDA (acute kidney injury) (Acute) Cellulitis (Acute) Acute hyponatremia (Acute) Peripheral arterial disease with history of revascularization MRSA bacteremia PVD (peripheral vascular disease) Acute osteomyelitis of right foot (Acute) Cellulitis (Acute) Open wound of right foot with complication (Chronic) BPH (benign prostatic hyperplasia) (Chronic) Depression (Chronic) Hyperlipidemia (Chronic) Benign essential hypertension (Chronic) 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) Medical History Paroxysmal SVT (supraventricular tachycardia) 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 Prolonged QT interval Surgical History S/P femoral-tibial bypass S/P vascular surgery Social History Smoking Status: Never smoker Tobacco Type: Cigarettes Age Started Using Tobacco: 19; Age Quit Using Tobacco: 78; packs per day: 1; Cigarettes Per Day: 3-5 - "cut way back since my foot"; Second Hand Exposure: No; Do You Dip or Chew Tobacco: No; Hx Alcohol Use: No Hx Substance Use: No Preferred Language: [place]ese Communication Ability: Effective Lamp Shade Assembler Required: No Beliefs That Will Affect Care: None Current Living Situation: Alone Current Living Situation Comment: patient lives alone, states son does live close by Feels Safe at Home: Yes Assistive Devices: Cane and Walker Allergies Allergies Allergy/AdvReac Type Severity Reaction Status Date / Time animal dander Allergy Unknown Unknown Verified 10/27/24 21:57 Home Meds Home Medications Medication Instructions Recorded Confirmed thiamine HCl (vitamin B1) 100 mg 100 mg PO BID 05/07/24 10/28/24 tablet acetaminophen 325 mg tablet 650 mg PO Q6H PRN PAIN/FEVER 10/27/24 10/28/24 atorvastatin 20 mg tablet 20 mg PO HS 10/27/24 10/28/24 cyclobenzaprine 5 mg tablet 5 mg PO Q8H PRN NECK SPASMS 10/27/24 10/28/24 oxycodone 5 mg tablet 5 mg PO Q6H PRN Pain 10/27/24 10/28/24 protein supplement 1 ea PO BIDM 10/27/24 10/28/24 Milk of Magnesia 30 ml PO DAILY PRN Constipation 10/28/24 10/28/24 bisacodyl 10 mg rectal suppository 10 mg MA DAILY PRN Constipation 10/28/24 10/28/24 (Dulcolax (bisacodyl)) miconazole nitrate 2 % topical 1 applic topical BID 10/28/24 10/28/24 cream sodium phosphates 19 gram-7 118 ml MA DAILY PRN Constipation 10/28/24 10/28/24 gram/118 mL enema (Fleet Enema) Previous Rx's Medication Instructions Recorded bismuth tribrom-petrolatum,wh 4" X #100 ea 04/18/24 4" bandage (Xeroform Petrolatum Dressing) tamsulosin 0.4 mg capsule (Flomax) 0.4 mg PO HS #90 caps 04/18/24 blood-glucose sensor (Dexcom G7 #3 ea 04/30/24 Sensor device) blood-glucose,geoscience specialist,cont #1 ea 04/30/24 (Dexcom G7 Manual Qa Tester) potassium chloride 20 mEq 20 meq PO BID #180 tabs 05/14/24 tablet,extended release(part/cryst) sertraline 50 mg tablet 50 mg PO BID #180 tabs 05/14/24 triamterene 75 1 tab PO DAILY #90 tabs 05/14/24 mg-hydrochlorothiazide 50 mg tablet insulin glargine-yfgn 100 unit/mL 20 unit (0.2 mL) subcut QAM #15 mL 06/21/24 (3 mL) subcutaneous pen (Semglee (insulin glargine-yfgn) Pen) blood sugar diagnostic (OneTouch #200 ea 09/09/24 Verio test strips) blood-glucose meter (OneTouch #1 ea 09/09/24 Verio Flex Meter) lancets 33 gauge #200 ea 09/09/24 aspirin 81 mg tablet,delayed 81 mg PO QAM #20 tabs 10/16/24 release cyanocobalamin (vitamin B-12) 500 1,000 mcg (2 x 500 mcg) PO QAM #10 10/16/24 mcg tablet tabs ferrous gluconate 324 mg (38 mg 324 mg PO BIDM #30 tabs 10/16/24 iron) tablet metoprolol tartrate 25 mg tablet 25 mg PO BID #20 tabs 10/16/24 polyethylene glycol 3350 17 gram 17 g PO DAILY #10 ea 10/16/24 oral powder packet (Miralax) tramadol 50 mg tablet 50 mg PO Q4H PRN pain #20 tabs 10/16/24 Results & Data (ED) Vital Signs Vital Signs - 24 hr 10/28/24 12:49 10/28/24 13:09 10/28/24 13:33 Temperature 36.7 C Temperature Source Oral Pulse Rate 101 H 104 H 106 H Pulse Rate [Apical] Respiratory Rate 26 H 19 26 H Respiratory Effort / Characteristics Non-Labored Spontaneous Respiratory Depth Normal Respiratory Pattern Regular Blood Pressure 167/89 H 167/89 H 166/89 H Blood Pressure [Right Arm] Blood Pressure Mean 100 115 112 Blood Pressure Mean [Right Arm] Blood Pressure Position [Right Arm] Pulse Oximetry 97 96 95 Oxygen Delivery Method Room Air Sepsis Recent Fever Within 48 Hours No Sepsis New/Unexplained Change in Mental Status No Sepsis Action Taken by Nursing No Action Required 10/28/24 13:45 10/28/24 14:30 10/28/24 15:00 Temperature Temperature Source Pulse Rate 106 H 109 H 109 H Pulse Rate [Apical] Respiratory Rate 26 H 26 H 27 H Respiratory Effort / Characteristics Respiratory Depth Respiratory Pattern Blood Pressure 143/91 H 166/93 H 163/100 H Blood Pressure [Right Arm] Blood Pressure Mean 102 108 117 Blood Pressure Mean [Right Arm] Blood Pressure Position [Right Arm] Pulse Oximetry 96 95 96 Oxygen Delivery Method Sepsis Recent Fever Within 48 Hours Sepsis New/Unexplained Change in Mental Status Sepsis Action Taken by Nursing 10/28/24 15:00 10/28/24 16:00 Temperature Temperature Source Pulse Rate 104 H Pulse Rate [Apical] 107 H Respiratory Rate 23 20 Respiratory Effort / Characteristics Non-Labored Spontaneous Respiratory Depth Normal Respiratory Pattern Regular Blood Pressure 163/100 H Blood Pressure [Right Arm] 169/99 H Blood Pressure Mean 117 Blood Pressure Mean [Right Arm] 122 Blood Pressure Position [Right Arm] Lying Pulse Oximetry 97 94 Oxygen Delivery Method Room Air Sepsis Recent Fever Within 48 Hours Sepsis New/Unexplained Change in Mental Status Sepsis Action Taken by Care Home Medications Current Medication List: was personally reviewed by me Laboratory Data Attestation: I reviewed the patient's lab results. 10/28/24 13:01 10/28/24 13:01 Lab Results 10/28/24 10/28/24 10/28/24 Range/Units 13:01 13:21 13:58 WBC 13.15 H (4.8-10.8) K/ul RBC 4.64 L (4.70-6.10) M/uL Hgb 12.1 L (14.0-18.0) g/dl Hct 38.7 L (42.0-52.0) % MCV 83.4 (80.0-100.0) fL MCH 26.1 (25.0-34.0) pg MCHC 31.3 L (32.0-36.0) g/dL RDW Std Deviation 53.1 H (36.4-46.3) fL RDW Coeff of Neftali 17.6 H (11.5-14.5) % Plt Count 237 (130-400) K/uL MPV 9.2 L (9.4-12.4) fL Immature Gran % (Auto) 0.6 % Neut % (Auto) 90.9 % Lymph % (Auto) 3.6 % Harding % (Auto) 4.7 % Eos % (Auto) 0.0 % Baso % (Auto) 0.2 % Neut # (Auto) 11.96 H (1.40-6.50) K/uL Lymph # (Auto) 0.47 L (1.20-3.40) K/uL Harding # (Auto) 0.62 H (0.11-0.59) K/uL Eos # (Auto) 0.00 (0.00-0.50) K/uL Baso # (Auto) 0.02 (0.00-0.20) K/uL Immature Gran # (Auto) 0.08 (0.01-0.20) K/uL PT 11.8 (9.0-12.0) Seconds INR 1.1 (0.9-1.1) APTT 30 (21-31) Seconds PTT Ratio 1.1 VBG pH 7.45 H (7.36-7.41) VBG pCO2 36 L (38-50) mmHg VBG pO2 < 20 mmHg VBG HCO3 25 mmol/L VBG O2 Saturation < 60.0 % VBG Base Excess 1.2 mEq/L Sodium 135 L (136-145) mmol/L Potassium 4.0 (3.5-5.1) mmol/L Chloride 101 (98-107) mmol/L Carbon Dioxide 23 (21-32) mmol/L Anion Gap 11 (3-11) BUN 30 H (6-23) mg/dl Creatinine 0.88 (0.6-1.4) mg/dl Est Cr Clr Drug Dosing Not Reportable eGFR 88.01 BUN/Creatinine Ratio 34.1 H (10-20) Glucose 191 H (70-99(Fasting)) mg/dl Lactate 3.0 H* (0.4-2.0) mmol/L Calcium 9.5 (8.6-10.3) mg/dl Magnesium 1.9 (1.7-2.4) mg/dl Total Bilirubin 1.3 H (0.2-1.0) mg/dl Direct Bilirubin 0.2 (0-0.2) mg/dl AST 16 (13-39) U/L ALT 9 (7-52) U/L Alkaline Phosphatase 87 (34-104) U/L Troponin I High Sens 42.3 H (0-20) pg/ml Total Protein 9.1 H (6.0-8.3) gm/dl Albumin 3.8 (3.4-5.0) gm/dl Procalcitonin 0.92 H (0-0.5) ng/ml Urine Color Yellow Urine Appearance Clear (Clear) Urine pH 5.0 (4.5-7.5) Ur Specific [place] 1.021 (1.000-1.030) Urine Protein 3+ H (Negative) Urine Glucose (UA) Negative (Negative) Urine Ketones Negative (Negative) Urine Blood 3+ H (Negative) Urine Nitrite Negative (Negative) Urine Bilirubin Negative (Negative) Urine Urobilinogen Negative (Negative) Ur Leukocyte Esterase Trace H (Negative) Urine WBC (Auto) 0-5 (0-5) /hpf Urine RBC (Auto) 6-10 H (0-2) /hpf U Hyaline Cast (Auto) 0-2 (0-2) /lpf U Epithel Cells (Auto) 0-2 (0-2) /hpf Urine Bacteria (Auto) None Seen (None Seen) Urine Comment Administered Medications Discontinued Medications Vancomycin HCl 1,250 mg/ (Sodium Chloride) 525 mls @ 200 mls/hr IV NOW ONE Stop: 10/28/24 15:40 Last Admin: 10/28/24 13:39 Dose: 200 mls/hr Documented By: KUNAL Sodium Chloride (Nss) 1,000 mls @ 999 mls/hr IV .Q1H1M ONE Stop: 10/28/24 15:32 Last Admin: 10/28/24 15:00 Dose: 999 mls/hr Documented By: KUNAL Imaging Data Attestation: I personally reviewed and interpreted this imaging study as follows: My Impression: 1 view chest x-ray was obtained in the emergency department. My interpretation is no free air or definite infiltrate, final report below. Radiologist's Impression: Chest X-Ray 10/28/24 12:49 XR chest 1V not portable CLINICAL HISTORY: Sepsis COMPARISON STUDY: 07/26/2024 FINDINGS: Heart size and pulmonary vasculature are normal. Inspiration is shallow. No consolidation or pleural effusion seen. No pneumothorax. IMPRESSION: No acute findings. ACT 112: Negative or not required by law. Electronically signed by: Galo Menjivar M.D. 10/28/2024 1:49 PM Femur X-Ray 10/28/24 13:14 XR femur RT 2V routine CLINICAL HISTORY: recent surgery COMPARISON: None FINDINGS: There is [id number] amputation at the mid to distal shaft right femur. Skin geovany remain distally. No acute fracture or dislocation. No evidence of osteomyelitis. There are mild degenerative changes at the right hip. IMPRESSION: Postoperative exam as described. ACT 112: Negative or not required by law. Electronically signed by: Galo Menjivar M.D. 10/28/2024 1:50 PM Discharge Plan Visit Data Chief Complaint: Illness ED Provider: Mason Harden Discharge Problem: Bacteremia due to Gram-positive bacteria, Neck pain, Acute alteration in mental status Patient Disposition: Being Evaluated by Hospitalist Condition: Fair Forms Stand Alone Forms: [facility] Prescriptions Prescriptions: No Action (DME) Dexcom G7 Manual Qa Tester Misc See Rx Instructions .MEDSUPPLY Qty: 1 0RF Rx Instructions: Use to check blood glucose tid and prn (DME) Dexcom G7 Sensor Device See Rx Instructions .MEDSUPPLY Qty: 3 5RF Rx Instructions: Use to check blood glucose 3 times daily and as needed sertraline 50 mg tablet 50 mg PO BID Qty: 180 3RF potassium chloride 20 mEq tablet,ER particles/crystals 20 meq PO BID Qty: 180 3RF triamterene-hydrochlorothiazid 75-50 mg tablet 1 tab PO DAILY Qty: 90 3RF insulin glargine-yfgn [Semglee(insulin glarg-yfgn)Pen] 100 unit/mL (3 mL) insulin pen 20 unit subcut QAM Qty: 15 2RF (DME) OneTouch Verio test strips Strip See Rx Instructions .Route Qty: 200 1RF Rx Instructions: TEST BSGS THREE TIMES DAILY; DX CODE- E11.9 (DME) lancets 33 gauge misc See Rx Instructions .Route Qty: 200 1RF Rx Instructions: TEST BSGS THREE TIMES DAILY; DX CODE- E11.9 (DME) blood-glucose meter [OneTouch Verio Flex meter] Misc See Rx Instructions .Route Qty: 1 0RF Rx Instructions: TEST BSGS THREE TIMES DAILY; DX CODE- E11.9 thiamine HCl (vitamin B1) 100 mg tablet 100 mg PO BID Patient Comments: Unable to verify OTC meds at this date/time. 10/07/24 tamsulosin [Flomax] 0.4 mg capsule 0.4 mg PO HS Qty: 90 1RF (DME) Xeroform Petrolatum Dressing 4 X 4 " bandage See Rx Instructions .Route Qty: 100 0RF Rx Instructions: Use with dressing change every other day polyethylene glycol 3350 [Miralax] 17 gram Powder In Packet 17 g PO DAILY Qty: 10 0RF aspirin 81 mg Tablet,Delayed Release (Dr/Ec) 81 mg PO QAM Qty: 20 0RF tramadol 50 mg Tablet 50 mg PO Q4H PRN (Reason: pain) Qty: 20 0RF cyanocobalamin (vitamin B-12) 500 mcg Tablet 1,000 mcg PO QAM Qty: 10 0RF metoprolol tartrate 25 mg Tablet 25 mg PO BID Qty: 20 0RF ferrous gluconate 324 mg (38 mg iron) Tablet 324 mg PO BIDM Qty: 30 0RF oxycodone 5 mg Tablet 5 mg PO Q6H PRN (Reason: Pain) cyclobenzaprine [Flexeril] 5 mg Tablet 5 mg PO Q8H PRN (Reason: NECK SPASMS) protein supplement Liquid 1 ea PO BIDM acetaminophen 325 mg tablet 650 mg PO Q6H MDD 3 GRAMS APAP/24 HOURS PRN (Reason: PAIN/FEVER) Patient Comments: Unable to verify OTC meds at this date/time. 10/07/24 atorvastatin 20 mg tablet 20 mg PO HS miconazole nitrate 2 % Cream 1 applic TOPICAL BID bisacodyl [Dulcolax (bisacodyl)] 10 mg Suppository 10 mg MA DAILY PRN (Reason: Constipation) Fleet Enema 19-7 gram/118 mL Enema 118 ml MA DAILY PRN (Reason: Constipation) Milk of Magnesia 30 ml PO DAILY PRN (Reason: Constipation) Referrals Referrals: Stephan Townsend III, CRNP [Primary Care Provider] -
[2024-10-28] MEDS ORDERED: VANCOMYCIN CONSULT ACTIVE PRN ×2 (13:03→16:04)
[2024-10-28] MEDS: VANCOMYCIN HCL 1,250 MG in SODIUM CHLORIDE 0.9% 500 ML IV ONE (13:39)
[2024-10-28 13:44] LABS: Hematocrit (blood only) 38.7 % (42.0-52.0); Hemoglobin 12.1 g/dl (14.0-18.0); Mean Corpuscular Hemoglobin 26.1 pg (25.0-34.0); Mean Corpuscular Volume 83.4 fL (80.0-100.0); Platelet Count 237 K/uL (130-400); RDW Standard Deviation 53.1 fL (36.4-46.3); Red Blood Count 4.64 M/uL (4.70-6.10); White Blood Count 13.15 K/ul (4.8-10.8)
--- NOTE | 2024-10-28 13:51 | XRay Report ---
XR chest 1V not portable CLINICAL HISTORY: Sepsis COMPARISON STUDY: 07/26/2024 FINDINGS: Heart size and pulmonary vasculature are normal. Inspiration is shallow. No consolidation o r pleural effusion seen. No pneumothorax. IMPRESSION: No acute findings. ACT 112: Negative or not required by law. Electronically signed by: Galo Menjivar M.D. 10/28/2024 1:49 PM
--- NOTE | 2024-10-28 13:52 | XRay Report ---
XR femur RT 2V routine CLINICAL HISTORY: recent surgery COMPARISON: None FINDINGS: There is [id number]-[id number] amputation at the mid to distal shaft right femur. Skin geovany re main distally. No acute fracture or dislocation. No evidence of osteomyelitis. There are mild degener ative changes at the right hip. IMPRESSION: Postoperative exam as described. ACT 112: Negative or not required by law. Electronically signed by: Galo Menjivar M.D. 10/28/2024 1:50 PM
[2024-10-28 14:04] LABS: Alanine Aminotransferase 9 U/L (7-52); Albumin Level 3.8 gm/dl (3.4-5.0); Alkaline Phosphatase 87 U/L (34-104); Anion Gap 11 (3-11); Bilirubin,Total 1.3 mg/dl (0.2-1.0); Blood Urea Nitrogen 30 mg/dl (6-23); Calcium 9.5 mg/dl (8.6-10.3); Carbon Dioxide 23 mmol/L (21-32); Chloride 101 mmol/L (98-107); Glucose 191 mg/dl (70-99(Fasting)); Magnesium 1.9 mg/dl (1.7-2.4); Potassium 4.0 mmol/L (3.5-5.1); Sodium 135 mmol/L (136-145); Total Protein 9.1 gm/dl (6.0-8.3)
[2024-10-28 14:05] LABS: Immature Granulocytes # (auto) 0.08 K/uL (0.01-0.20); Immature Granulocytes % (auto) 0.6 %
[2024-10-28 14:12] LABS: Appearance Urine Clear (Clear); Bacteria Urine Automated None Seen (None Seen); Cast Urine Automated 0-2 /lpf (0-2); Epithelial Cell Urine Auto 0-2 /hpf (0-2); Glucose Urine UA Negative (Negative); WBC Urine Automated 0-5 /hpf (0-5)
[2024-10-28 14:15] LABS: INR 1.1 (0.9-1.1); Partial Thromboplastin Time 30 Seconds (21-31); Prothrombin Time 11.8 Seconds (9.0-12.0)
[2024-10-28 14:17] LABS: Base Excess VBG 1.2 mEq/L; HCO3 VBG 25 mmol/L; Oxygen Saturation VBG < 60.0 %; PCO2 VBG 36 mmHg (38-50); PO2 VBG < 20 mmHg; pH VBG 7.45 (7.36-7.41)
[2024-10-28] MEDS: SODIUM CHLORIDE 0.9% 1,000 ML IV ONE (15:00)
[2024-10-28] MEDS ORDERED: SOD PHOSPHATE/SOD BIPHOSPHATE ENEMA 132 ML BTL PR PRN (16:00)
[2024-10-28] MEDS ORDERED: ACETAMINOPHEN 325 MG TAB PO PRN ×3 (16:00→16:41)
[2024-10-28] MEDS ORDERED: PHARMACY GLYCEMIC MGMT CONSULT PRN (16:10)
--- NOTE | 2024-10-28 16:29 | History & Physical Report ---
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 -complaining of c-spine pain -MRI c-spine and right femur to r/o osteo -echo -ID consulted -vancomycin/zosyn (2) Peripheral arterial disease with history of revascularization: Plan: -right leg AKA (3) Hyperlipidemia: Plan: -atorvastatin (4) Benign essential hypertension: Plan: -metoprolol (5) Type 2 diabetes mellitus with diabetic polyneuropathy: Plan: -pharm consult for glycemic managment -lantus Plan Heparin SQ for DVT px History of Present Illness Chief Complaint: +blood cultures for MRSA Primary Care Provider: Stephan Townsend III, JACKY Pt is a 79 y/o male with pmh of PVD s/p recent right AKA 2nd to MRSA osteo of right foot, DM, HTN who presents with MRSA + blood cultures. Pt was seen in the ER yesterday with complaints of cervical back pain and fatigue.He had CT c-spine along with femur Xrays which were negative. Today his blood cultures returned + for MRSA and he was called back to the ER.Pt appears with increased somnolence and labs showing elevated WBC, lactate and procal. He was started on vancomycin and will be admitted for further work up of his MRSA bacteremia. Allergies Allergy/AdvReac Type Severity Reaction Status Date / Time animal dander Allergy Unknown Unknown Verified 10/27/24 21:57 Home Medications Medication Instructions Recorded Confirmed Type bismuth tribrom-petrolatum,wh 4" X #100 ea 04/18/24 04/18/24 Rx 4" bandage (Xeroform Petrolatum Dressing) tamsulosin 0.4 mg capsule (Flomax) 0.4 mg PO HS #90 caps 04/18/24 10/28/24 Rx blood-glucose sensor (Dexcom G7 #3 ea 04/30/24 Rx Sensor device) blood-glucose,gas load dispatcher,cont #1 ea 04/30/24 Rx (Dexcom G7 Credit Review Manager) thiamine HCl (vitamin B1) 100 mg 100 mg PO BID 05/07/24 10/28/24 History tablet potassium chloride 20 mEq 20 meq PO BID #180 tabs 05/14/24 10/28/24 Rx tablet,extended release(part/cryst) sertraline 50 mg tablet 50 mg PO BID #180 tabs 05/14/24 10/28/24 Rx triamterene 75 1 tab PO DAILY #90 tabs 05/14/24 10/28/24 Rx mg-hydrochlorothiazide 50 mg tablet insulin glargine-yfgn 100 unit/mL 20 unit (0.2 mL) subcut QAM #15 mL 06/21/24 10/28/24 Rx (3 mL) subcutaneous pen (Semglee (insulin glargine-yfgn) Pen) blood sugar diagnostic (OneTouch #200 ea 09/09/24 Rx Verio test strips) blood-glucose meter (OneTouch #1 ea 09/09/24 Rx Verio Flex Meter) lancets 33 gauge #200 ea 09/09/24 Rx aspirin 81 mg tablet,delayed 81 mg PO QAM #20 tabs 10/16/24 10/28/24 Rx release cyanocobalamin (vitamin B-12) 500 1,000 mcg (2 x 500 mcg) PO QAM #10 10/16/24 10/28/24 Rx mcg tablet tabs ferrous gluconate 324 mg (38 mg 324 mg PO BIDM #30 tabs 10/16/24 10/28/24 Rx iron) tablet metoprolol tartrate 25 mg tablet 25 mg PO BID #20 tabs 10/16/24 10/28/24 Rx polyethylene glycol 3350 17 gram 17 g PO DAILY #10 ea 10/16/24 10/28/24 Rx oral powder packet (Miralax) tramadol 50 mg tablet 50 mg PO Q4H PRN pain #20 tabs 10/16/24 10/28/24 Rx acetaminophen 325 mg tablet 650 mg PO Q6H PRN PAIN/FEVER 10/27/24 10/28/24 History atorvastatin 20 mg tablet 20 mg PO HS 10/27/24 10/28/24 History cyclobenzaprine 5 mg tablet 5 mg PO Q8H PRN NECK SPASMS 10/27/24 10/28/24 History oxycodone 5 mg tablet 5 mg PO Q6H PRN Pain 10/27/24 10/28/24 History protein supplement 1 ea PO BIDM 10/27/24 10/28/24 History Milk of Magnesia 30 ml PO DAILY PRN Constipation 10/28/24 10/28/24 History bisacodyl 10 mg rectal suppository 10 mg ID DAILY PRN Constipation 10/28/24 10/28/24 History (Dulcolax (bisacodyl)) miconazole nitrate 2 % topical 1 applic topical BID 10/28/24 10/28/24 History cream sodium phosphates 19 gram-7 118 ml ID DAILY PRN Constipation 10/28/24 10/28/24 History gram/118 mL enema (Fleet Enema) Past Med/Surg History Problem List (Updated 10/28/24 @ 16:19 by Mason Harden DO) Acute alteration in mental status (Acute) Neck pain (Acute) Bacteremia due to Gram-positive bacteria (Acute) Neck pain (Acute) Anemia Amputation above knee ROSALINDA (acute kidney injury) (Acute) Cellulitis (Acute) Acute hyponatremia (Acute) Peripheral arterial disease with history of revascularization MRSA bacteremia PVD (peripheral vascular disease) Acute osteomyelitis of right foot (Acute) Cellulitis (Acute) Open wound of right foot with complication (Chronic) BPH (benign prostatic hyperplasia) (Chronic) Depression (Chronic) Hyperlipidemia (Chronic) Benign essential hypertension (Chronic) 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) Medical History Paroxysmal SVT (supraventricular tachycardia) 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 Prolonged QT interval Surgical History S/P femoral-tibial bypass S/P vascular surgery Social History Smoking Status: Never smoker Tobacco Type: Cigarettes Age Started Using Tobacco: 19; Age Quit Using Tobacco: 78; packs per day: 1; Cigarettes Per Day: 3-5 - "cut way back since my foot"; Second Hand Exposure: No; Do You Dip or Chew Tobacco: No; Hx Alcohol Use: No Hx Substance Use: No Preferred Language: Mohawk Communication Ability: Effective Hotel Valet Attendant Required: No Beliefs That Will Affect Care: None Current Living Situation: Alone Current Living Situation Comment: patient lives alone, states son does live close by Feels Safe at Home: Yes Assistive Devices: Cane and Walker Review of Systems Review of Systems: CONST: Negative for fever, body aches and chills. +Fatigue HENT: Negative for neck pain/stiffness, headache, congestion, sore throat, swelling. EYES: Negative for discharge/pain or vision changes. RESP: Negative for cough/hemoptysis and shortness of breath. CV: Negative chest pain, difficulty breathing, palpitations. ABD: Negative pain, nausea, vomiting. : Negative increase frequency, dysuria, blood in urine or stool. MUSC: Negative for muscle aches, edema. SKIN: Negative rash, lesions/sores. NEURO: Negative headache, dizziness, weakness. Physical Exam Physical Exam: GENERAL APPEARANCE NAD, activity normal for age, well developed/ well nourished, no cyanosis, pallor, or diaphoresis. EYES lids/conjunctiva normal. EARS/NOSE/THROAT Mucous membranes moist, nares normal, lips/teeth normal uvula midline without oral pharyngeal erythema, exudate or swelling TMs normal bilaterally. No lymphangitis/lymphedema. HEAD/NECK normocephalic atraumatic, no facial trauma, neck is supple. RESPIRATORY respiratory effort normal, speaks in full sentences, no tripod position, no accessory muscle use. Lungs clear to auscultation without rhonchi, wheezes, rales CARDIAC Regular rate and rhythm, no edema. ABDOMINAL Soft, ND/NT. No evidence of fluid wave. No pulsatile masses on exam, rebound tenderness, Baxter sign or pain over Mcburney's point. MUSCLES/EXTREMITIES No abnormal range of motion, no swelling. Right AKA, stump without erythema, or edema. SKIN Warm, pink and dry. No rashes, dermatoses, petechiae or lesions. NEUROLOGICAL Speech is clear and appropriate. Normal level of consciousness. Gait and coordination are normal. 5/5 strength in all extremities. PSYCH Normal mood and affect. Judgement/competence is appropriate Results & Data Results & Data Vital Signs (Past 12 Hours) Vital Signs Temp Pulse Pulse Resp BP BP Pulse Ox 10/28/24 16:00 107 H 20 169/99 H 94 10/28/24 15:00 104 H 23 163/100 H 97 10/28/24 15:00 109 H 27 H 163/100 H 96 10/28/24 14:30 109 H 26 H 166/93 H 95 10/28/24 13:45 106 H 26 H 143/91 H 96 10/28/24 13:33 106 H 26 H 166/89 H 95 10/28/24 13:09 36.7 C 104 H 19 167/89 H 96 10/28/24 12:49 101 H 26 H 167/89 H 97 O2 Del Method 10/28/24 16:00 Room Air 10/28/24 15:00 10/28/24 15:00 10/28/24 14:30 10/28/24 13:45 10/28/24 13:33 10/28/24 13:09 Room Air 10/28/24 12:49 PG Care Time/CCT Total # of Minutes Spent Total Time Spent with Patient: Total time spent is greater than 50% in coordination of care (as documented) at patient's floor/unit and/or counseling patient: Coding Level of Care Code 53075 INT INP/OBS CARE MIN Diagnoses MRSA bacteremia R78.81; B95.62 Peripheral arterial disease with history of revascularization I73.9; Z98.890 Mixed hyperlipidemia E78.2 Hyperlipidemia type: mixed hyperlipidemia Benign essential hypertension I10 Type 2 diabetes mellitus with diabetic polyneuropathy, with long-term current use of insulin E11.42; Z79.4 Diabetes mellitus chcf insulin use: with dedicated intermodal truck driver use (3) Hyperlipidemia Hyperlipidemia type: mixed hyperlipidemia Qualified Code(s): E78.2 - Mixed hyperlipidemia (5) 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 mellitus dedicated intermodal truck driver insulin use: with dedicated intermodal truck driver use Qualified Code(s): E11.42 - Type 2 diabetes mellitus with diabetic polyneuropathy; Z79.4 - local intermodal truck driver (current) use of insulin
[2024-10-28] MEDS ORDERED: MAGNESIUM HYDROXIDE SUSP 30 ML UDC PO PRN (16:37)
[2024-10-28] MEDS ORDERED: NON-FORMULARY MEDICATION (Protein Supplement Liquid) PO SCH (17:00)
[2024-10-28] MEDS: LORazepam 1 MG/1 ML SYR ED Inj Use IV STA (17:07)
[2024-10-28 17:22] LABS: Hematocrit (blood only) 31.6 % (42.0-52.0); Hemoglobin 10.5 g/dl (14.0-18.0); Mean Corpuscular Hemoglobin 27.5 pg (25.0-34.0); Mean Corpuscular Volume 82.7 fL (80.0-100.0); Platelet Count 182 K/uL (130-400); RDW Standard Deviation 53.0 fL (36.4-46.3); Red Blood Count 3.82 M/uL (4.70-6.10); White Blood Count 12.83 K/ul (4.8-10.8)
[2024-10-28 17:38] LABS: Anion Gap 9.0 (3-11); Blood Urea Nitrogen 30.0 mg/dl (6-23); Calcium 8.7 mg/dl (8.6-10.3); Carbon Dioxide 22.0 mmol/L (21-32); Chloride 105.0 mmol/L (98-107); Creatinine Clr Calc Pharmacy 62.5 ml/min; Glucose 165.0 mg/dl (70-99(Fasting)); Potassium 3.4 mmol/L (3.5-5.1); Sodium 136.0 mmol/L (136-145)
[2024-10-28] MEDS: SODIUM CHLORIDE 0.9% 1,000 ML IV SCH (19:34)
[2024-10-28] MEDS: PIPERACILLIN/TAZOBACTAM 4.5 GM/100 ML BAG IV STA (19:35)
--- NOTE | 2024-10-28 19:37 | Magnetic Resonance Report ---
Clinical History: Possible infection Technique: Sagittal and axial T1 and T2-weighted magnetic resonance images were obtained of the cervical spine without gadolinium contrast. No prior examination is available for comparison. Findings: There is fluid and edema in the prevertebral space from the level of the dens to the level of C5 no clear discrete prevertebral abscess is identified. There is material of mildly high T2 signal intensity in the epidural space from the level of the dens at the level of C3-4. The cervical vertebrae are in normal alignment with no listhesis seen. No fracture is identified. No focal osseous lesion is noted. The overall bone marrow signal intensity of the vertebrae is unremarkable. There are degenerative end plate changes at C5-6 and C6-7. There is atlantoaxial osteoarthritis. There is no definite sign of infectious discitis or osteomyelitis. There is no sign of acute ligamentous injury. The spinal cord is of normal signal intensity with no focal lesion seen. The cerebellar tonsils are normally situated. There is opacification of the visualized right mastoid air cells At C2-C3, there is mild spinal stenosis due to a disc bulge combined with the material in the epidural space. The neural foramen are patent At C3-C4, there is spinal stenosis due to a disc bulge and a left paracentral disc protrusion. There is bilateral neural foramen narrowing that may affect the exiting C4 nerve roots At C4-C5, there is a disc bulge without spinal cord or neural foramen compromise At C5-C6, there is mild spinal stenosis with mild spinal cord deformity due to a disc bulge and a left paracentral disc protrusion. There is bilateral neural foramen narrowing that may affect the exiting C6 nerve roots At C6-C7, there is a disc bulge without spinal stenosis. There is right neural foramen narrowing that may affect the right C7 nerve root At C7-T1, no disc herniation is present. There is no spinal stenosis or nerve root compression Impression: 1. No definite sign of infectious discitis or osteomyelitis in the cervical spine 2. Fluid and edema in the prevertebral space. Possible etiologies include infection and postoperative change. Clinical correlation is recommended. No clear discrete abscess is identified. Contrast enhanced CT of the neck could be considered for further evaluation 3. Intermediate signal intensity material in the epidural space at the level of the dens to C4-5. This could be due to infectious or other inflammatory tissue. No clear discrete epidural abscess is identified at this time 4. Spinal stenosis at C3-4 with compression of the spinal cord due to a disc bulge and a disc herniation. No definite cord edema or myelomalacia is seen 5. Less severe spinal stenosis at C2-3 due to a disc bulge and the material in the epidural space 6. Mild spinal stenosis at C5-6 7. Bilateral C3-4 and C5-6 and right C6-7 neural foramen narrowing, which may affect the exiting nerve roots 8. Opacification of the right mastoid air cells that may be due to inflammatory mastoiditis ACT 112: Positive. There are findings on this exam that require communication between the performing entity and the patient following Patient Test Result Information Act ([place] ACT 112) guidelines. Electronically signed by Tevin Mtz 10-28-2024 7:37 PM
[2024-10-28] MEDS: INSULIN ASPART PER UNIT CHARGE SC SCH (19:58)
[2024-10-28] MEDS: ACETAMINOPHEN 1,000 MG/100 ML VIAL IV STA (19:58)
[2024-10-28] MEDS: FERROUS GLUCONATE 324 MG TAB PO SCH (20:01)
[2024-10-28] MEDS ORDERED: ACETAMINOPHEN 1,000 MG/100 ML VIAL IV SCH (22:45)
[2024-10-28] MEDS: ATORVASTATIN 20 MG TAB PO SCH (23:05)
[2024-10-28] MEDS: METOPROLOL TARTRATE 25 MG TAB PO SCH (23:05)
[2024-10-28] MEDS: SERTRALINE HCL 50 MG TABLET PO SCH (23:06)
[2024-10-28] MEDS: MICONAZOLE NITRATE 2% CR 30 GM TUBE TOP SCH (23:06)
[2024-10-28] MEDS: POTASSIUM CHLORIDE CRTAB 20 MEQ TABCR PO SCH (23:06)
[2024-10-28] MEDS: THIAMINE HCL 100 MG TAB PO SCH (23:07)
[2024-10-28] MEDS: HEPARIN SOD 5,000 UNIT/0.5 ML VIAL SQ SCH (23:07)
[2024-10-28] MEDS: TAMSULOSIN HCL 0.4 MG CAP PO SCH (23:07)
[2024-10-28] MEDS: LANTUS PER UNIT CHARGE SC SCH (23:08)
[2024-10-28] MEDS: LANTUS PER UNIT CHARGE SQ ONE (23:08)
[2024-10-28] MEDS: KETOROLAC TROMETHAMINE 15 MG/ML VIAL IV PRN (23:08)
[2024-10-28] MEDS: VANCOMYCIN HCL 750 MG in SODIUM CHLORIDE 0.9% 250 ML IV SCH (23:21)
[2024-10-28] MEDS ORDERED: Nursing to Pharmacy Communication SCH (23:45)
[2024-10-29] MEDS: PIPERACILLIN/TAZOBACTAM 4.5 GM/100 ML BAG IV SCH (00:49)
[2024-10-29] MEDS: ACETAMINOPHEN 1,000 MG/100 ML VIAL IV SCH (03:27)
[2024-10-29] MEDS: INSULIN ASPART PER UNIT CHARGE SC ONE (04:28)
[2024-10-29 04:52] LABS: A calco-baum cmplx NotReported Not Detected (NotDetected); Bact fragilis Not Reported Not Detected (NotDetected); Blood Culture Id Panel See PCR Comment (NotDetected); C auris Not Reported Not Detected (NotDetected); Calbicans Not Reported Not Detected (NotDetected); Candida glabrata Not Reported Not Detected (NotDetected); Candida krusei Not Reported Not Detected (NotDetected); Cneoformans/gatti Not Reported Not Detected (NotDetected); Cparapsilosis Not Reported Not Detected (NotDetected); Ctropicalis Not Reported Not Detected (NotDetected); E cloacae compx Not Reported Not Detected (NotDetected); Efaecalis Not Reported Not Detected (NotDetected); Efaecium Not Reported Not Detected (NotDetected); Enterobacterales Not Reported Not Detected (NotDetected); Escherichia coli Not Reported Not Detected (NotDetected); H influenzae Not Reported Not Detected (NotDetected); K aerogenes Not Reported Not Detected (NotDetected); Koxytoca Not Reported Not Detected (NotDetected); Kpneumoniae grp Not Reported Not Detected (NotDetected); Lmonocyt Not Reported Not Detected (NotDetected); N meningitidis Not Reported Not Detected (NotDetected); P aeruginosa Not Reported Not Detected (NotDetected); Proteus spp Not Reported Not Detected (NotDetected); Salmonella spp Not Reported Not Detected (NotDetected); Staph lugdunensis Not Reported Not Detected (NotDetected); Staph spp. Not Reported DETECTED (NotDetected); Staphaureus Not Reported DETECTED (NotDetected); Staphepi Not Reported Not Detected (NotDetected); Staphylococcus spp. DETECTED (NotDetected); Stenmaltophilia Not Reported Not Detected (NotDetected); Strep agal(GrpB) Not Reported Not Detected (NotDetected); Strep pneum Not Reported Not Detected (NotDetected); Strep pyog (GrpA) Not Reported Not Detected (NotDetected); Strep spp Not Reported Not Detected (NotDetected)
[2024-10-29 05:14] LABS: mecAC+MREJ Resistant Gene MRSA DETECTED (NotDetected)
[2024-10-29] MEDS ORDERED: ACETAMINOPHEN 1,000 MG/100 ML VIAL IV SCH (06:00)
[2024-10-29 08:47] LABS: Hematocrit (blood only) 30.3 % (42.0-52.0); Hemoglobin 9.9 g/dl (14.0-18.0); Mean Corpuscular Hemoglobin 27.4 pg (25.0-34.0); Mean Corpuscular Volume 83.9 fL (80.0-100.0); Platelet Count 138 K/uL (130-400); RDW Standard Deviation 54.3 fL (36.4-46.3); Red Blood Count 3.61 M/uL (4.70-6.10); White Blood Count 6.75 K/ul (4.8-10.8)
[2024-10-29] MEDS ORDERED: NON-FORMULARY MEDICATION (Insulin Glargine-Yfgn [Semglee(Insulin Glarg-Yfgn)Pen] 100 unit/ SQ SCH (09:00)
[2024-10-29] MEDS: CYCLOBENZAPRINE HCL 5 MG TAB PO PRN (09:06)
[2024-10-29] MEDS: ASPIRIN 81 MG ECTAB PO SCH (09:07)
[2024-10-29 09:08] LABS: Anion Gap 9.0 (3-11); Blood Urea Nitrogen 38.0 mg/dl (6-23); Calcium 8.1 mg/dl (8.6-10.3); Carbon Dioxide 20.0 mmol/L (21-32); Chloride 109.0 mmol/L (98-107); Creatinine Clr Calc Pharmacy 55.1 ml/min; Glucose 148.0 mg/dl (70-99(Fasting)); Potassium 3.0 mmol/L (3.5-5.1); Sodium 138.0 mmol/L (136-145)
[2024-10-29] MEDS: TRIAMTERENE/HCTZ 37.5/25MG TAB PO SCH (09:08)
[2024-10-29] MEDS: POLYETHYLENE (MIRALAX) 17 GM PACK PO SCH (09:16)
--- NOTE | 2024-10-29 09:17 | Hospitalist Progress Note ---
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 Review of Systems Review of Systems: CONST: Negative for fever, body aches and chills. +Fatigue HENT: Negative for neck pain/stiffness, headache, congestion, sore throat, swelling. EYES: Negative for discharge/pain or vision changes. RESP: Negative for cough/hemoptysis and shortness of breath. CV: Negative chest pain, difficulty breathing, palpitations. ABD: Negative pain, nausea, vomiting. : Negative increase frequency, dysuria, blood in urine or stool. MUSC: Negative for muscle aches, edema. SKIN: Negative rash, lesions/sores. NEURO: Negative headache, dizziness, weakness. Physical Exam Physical Exam: GENERAL APPEARANCE NAD, activity normal for age, well developed/ well nourished, no cyanosis, pallor, or diaphoresis. EYES lids/conjunctiva normal. EARS/NOSE/THROAT Mucous membranes moist, nares normal, lips/teeth normal uvula midline without oral pharyngeal erythema, exudate or swelling TMs normal bilaterally. No lymphangitis/lymphedema. HEAD/NECK normocephalic atraumatic, no facial trauma, neck is supple. RESPIRATORY respiratory effort normal, speaks in full sentences, no tripod position, no accessory muscle use. Lungs clear to auscultation without rhonchi, wheezes, rales CARDIAC Regular rate and rhythm, no edema. ABDOMINAL Soft, ND/NT. No evidence of fluid wave. No pulsatile masses on exam, rebound tenderness, Baxter sign or pain over Mcburney's point. MUSCLES/EXTREMITIES No abnormal range of motion, no swelling. Right AKA, stump without erythema, or edema. SKIN Warm, pink and dry. No rashes, dermatoses, petechiae or lesions. NEUROLOGICAL Speech is clear and appropriate. Normal level of consciousness. Gait and coordination are normal. 5/5 strength in all extremities. PSYCH Normal mood and affect. Judgement/competence is appropriate Results & Data Results & Data Vital Signs (Past 12 Hours) Vital Signs Temp Pulse Pulse Resp BP BP Pulse Ox 10/29/24 08:06 36.5 C 82 16 152/77 H 94 10/29/24 05:29 86 10/29/24 04:38 37.1 C 10/29/24 03:05 38.3 C H 10/29/24 02:58 83 18 158/73 H 98 10/28/24 22:58 96 H 10/28/24 22:02 36.7 C 100 H 18 147/78 H 94 10/28/24 22:00 O2 Del Method 10/29/24 08:06 Room Air 10/29/24 05:29 10/29/24 04:38 10/29/24 03:05 10/29/24 02:58 Room Air 10/28/24 22:58 10/28/24 22:02 Room Air 10/28/24 22:00 Room Air PG Care Time/CCT Total # of Minutes Spent Total Time Spent with Patient: Total time spent is greater than 50% in coordination of care (as documented) at patient's floor/unit and/or counseling patient: Coding Level of Care Code 75690 SUB INP/OBS CARE 2/35MIN Diagnoses MRSA bacteremia R78.81; B95.62 Peripheral arterial disease with history of revascularization I73.9; Z98.890 Mixed hyperlipidemia E78.2 Hyperlipidemia type: mixed hyperlipidemia Benign essential hypertension I10 Type 2 diabetes mellitus with diabetic polyneuropathy, with long-term current use of insulin E11.42; Z79.4 Diabetes mellitus long-term insulin use: with long-term use (3) Hyperlipidemia Hyperlipidemia type: mixed hyperlipidemia Qualified Code(s): E78.2 - Mixed hyperlipidemia (5) 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 mellitus terminal 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
[2024-10-29] MEDS: LANTUS PER UNIT CHARGE SC SCH (09:18)
[2024-10-29] MEDS: LIDOCAINE 5% 1 PATCH TD SCH (09:19)
[2024-10-29] MEDS: VANCOMYCIN LEVEL ONE (11:44)
[2024-10-29] MEDS: CYANOCOBALAMIN (B-12) 500 MCG TABLET PO SCH (12:39)
--- NOTE | 2024-10-29 14:26 | Pharmacy Report ---
Pharmacy PK ABX Note - Date of Service October 29, 2024 - Assessment and Plan Assessment 79 year old M receiving vancomycin and piperacillin/tazobactam for treatment of MRSA bacteremia/potential osteomyelitis. Pertinent microbiologic data includes: 05/17 blood culture growing GPCs in clusters. Biofire detected staph aureus w/ mecA resistance gene. MRSA bacteremia. Day # 2 of antimicrobial therapy. Plan Vancomycin * Loading dose: 1250 mg IV x 1 * Maintenance dose: 750 mg IV every 12 hours * Random level around 1100 today was 9.8 * Regimen is predicted to achieve target AUC/OLIVERIO of 400-600 mg/L.hr * Regimen may be slightly therapeutic AUC/OLIVERIO goal, however given confirmed MRSA bacteremia - aiming for higher end of AUC/OLIVERIO goal range. * Next random level ordered for 11/01/24 [id number] Pharmacy will continue to follow and will adjust dose/frequency as necessary. Thank you. Pharmacy has transitioned to AUC monitoring for vancomycin. AUC/OLIVERIO is the preferred PK/PD target and is associated with decreased risk of nephrotoxicity compared to traditional trough targets.
--- NOTE | 2024-10-29 14:31 | XCELERA ---
[id number]
--- NOTE | 2024-10-29 15:05 | Pharmacy Report ---
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 Continue to monitor. PLAN FOR INPATIENT GLYCEMIC CONTROL: * Basal insulin * Lantus 10 units SQ QAM * Lantus 0, 5, or 10 units SQ QPM (see sliding scale in order instructions) * Bolus insulin * NovoLog per scale ACHS or Q6hrs while NPO * Goal Range: Low 110 mg/dL - High 140 mg/dL * Correction Factor: 30 mg/dL/unit * Nutritional / Prandial insulin per carb ratio of 1 unit per 10 grams CHO consumed
--- NOTE | 2024-10-29 15:56 | Infectious Disease Consult ---
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 Wound culture grew MRSA and group B strep. He received 24 hours of daptomycin and ertapenem post OR. He was discharged on . He returned to the ED on 10/27/2024 for neck pain. Workup was negative. He was discharged. He was asked to return on 10/28/2024 for positive blood cultures (4/4 bottles positive for MRSA). He complains of neck pain. On admission, he was afebrile but then developed a fever with a Tmax of 39.1 . Labs: WBC 12.83,, procalcitonin 0.92, BUN 30, creatinine 0.9. Repeat blood cultures also positive for MRSA via [employer]. Chest x-ray showed no acute findings. Right femur x-ray shows a [id number]-[id number]-[id number] amputation at the mid to distal shaft of the femur. Skin geovany remain distally. No evidence of osteomyelitis. There are mild degenerative changes of the right hip. Cervical spine CT shows no definite signs of infectious discitis or osteomyelitis of the cervical spine. There is fluid and edema in the prevertebral space. Possible etiologies include infection, postoperative changes. No clear discrete abscess noted. There is intermediate signal intensity material in the epidural space at the level of the dens to C4-5. This could be infectious or inflammatory. No discrete epidural abscess identified. Stenosis at C3 C5 with compression of the spinal cord due to disc bulge and disc herniation. No definitive cord edema. The is opacification of the right mastoids which may be due to inflammatory mastoiditis. Transthoracic echocardiogram with no valve vegetations.. He was started on vancomycin and Zosyn. Infectious disease consulted for MRSA bacteremia. An E consult without video evaluation completed as video/camera is not working Microbiology 10/27/2024 blood culture 4/4 bottles positive for Staph aureus (MRSA via [employer]) 10/28/2024 blood culture 4/4 bottles GPC ( MRSA via biofire) Prior microbiology 10/08/2024 right foot wound culture MRSA, Streptococcus agalactiae (GBS) 07/29/24 right foot foot bone culture MRSA 07/29/2024 right foot wound culture MRSA 07/26 blood culture 4/4 bottles positive for MRSA 02/22/2024 right toe wound culture MSSA, Streptococcus agalactiae (GBS) Antibiotics vancomycin 10/28currenld Zosyn 10/28current #MRSA Bacteremia # Neck pain #Abnormal cervical spine imaging, # Sp Right AKA sp failed course of medical management with abx for osteomyelitis, 10/11/2024 # History pf MRSA Right foot osteomyelitis and MRSA bacteremia 07/2024 #PAD, Status post vascularization Discussion Source of MRSa bacteremia, may be the cervical spine givne neck pain and abnormal cervical spine findings or R LE AKA site. TTE without vegatations Recommendations Continue IV vancomycin per pharmacy protocol DC zosyn Follow-up femur MRI Repeat BCx ordered for AM , if positive check CELIA Monitor for metastatic seeding to joints , skin, sales and events coordinator, spine. If no source identified for bacteremia, will need further evaluation of cervical spine given MRI findings. Thank you for this consult. ID will continue to follow. Brian Bhat MD, MPH Infectious Disease [facility], [facility] Call [phone] with questions Consultation Information This patient recommendation is based on a telemedicine consult request which was completed asynchronously through chart review and information provided by the primary physician. The patient was not seen or examined today. The evaluation is consultative in nature and all patient care and treatment decisions can either be accepted or rejected by the patient's primary hospital-based treating physician using their own independent medical judgment for their patient. [employer] contact information: Please call [facility] Call Center [phone]. (Phone Number For Physician Use Only) Time Spent Reviewing Chart: 31+ minutes History of Present Illness Reason for Consultation: MRSA bacteremia Requesting Physician: Tone Miner Attending Physician: Tone Miner MD History of Present Illness This is a 79-year-old male with a past medical history of DM2, PAD status post fem-popliteal bypass 02/2024, BPH, hypertension, right foot gangrene with second toe osteomyelitis status post ray amputation 02/22/2024 with clear margins (wound culture+ for MSSA and GBS, discharged on 7 days of cefazolin) right fifth metatarsal osteomyelitis with bone cultures+ for MRSA with associated MRSA bacteremia status post daptomycin for 6 weeks through 09/09/2024 with persistent/worsening osteomyelitis prompting return to ED 09/2024 with worsening right foot wound and fifth metatarsal osteomyelitis, 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 Wound culture grew MRSA and group B strep. He received 24 hours of daptomycin and ertapenem post OR. He was discharged on . He returned to the ED on 10/27/2024 for neck pain. Workup was negative. He was discharged. He was asked to return on 10/28/2024 for positive blood cultures (4/4 bottles positive for MRSA). He complains of neck pain. On admission, he was afebrile but then developed a fever with a Tmax of 39.1 . Labs: WBC 12.83,, procalcitonin 0.92, BUN 30, creatinine 0.9. Repeat blood cultures also positive for MRSA via [employer]. Chest x-ray showed no acute findings. Right femur x-ray shows a [id number] amputation at the mid to distal shaft of the femur. Skin geovany remain distally. No evidence of osteomyelitis. There are mild degenerative changes of the right hip. Cervical spine CT shows no definite signs of infectious discitis or osteomyelitis of the cervical spine. There is fluid and edema in the prevertebral space. Possible etiologies include infection, postoperative changes. No clear discrete abscess noted. There is intermediate signal intensity material in the epidural space at the level of the dens to C4-5. This could be infectious or inflammatory. No discrete epidural abscess identified. Stenosis at C3 C5 with compression of the spinal cord due to disc bulge and disc herniation. No definitive cord edema. The is opacification of the right mastoids which may be due to inflammatory mastoiditis. Transthoracic echocardiogram with no valve vegetations.. He was started on vancomycin and Zosyn. Infectious disease consulted for MRSA bacteremia. Allergies Allergy/AdvReac Type Severity Reaction Status Date / Time animal dander Allergy Unknown Unknown Verified 10/27/24 21:57 Home Medications Medication Instructions Recorded Confirmed Type bismuth tribrom-petrolatum,wh 4" X #100 ea 04/18/24 04/18/24 Rx 4" bandage (Xeroform Petrolatum Dressing) tamsulosin 0.4 mg capsule (Flomax) 0.4 mg PO HS #90 caps 04/18/24 10/28/24 Rx blood-glucose sensor (Dexcom G7 #3 ea 04/30/24 Rx Sensor device) blood-glucose,director of therapy services,cont #1 ea 04/30/24 Rx (Dexcom G7 Lining Feller) thiamine HCl (vitamin B1) 100 mg 100 mg PO BID 05/07/24 10/28/24 History tablet potassium chloride 20 mEq 20 meq PO BID #180 tabs 05/14/24 10/28/24 Rx tablet,extended release(part/cryst) sertraline 50 mg tablet 50 mg PO BID #180 tabs 05/14/24 10/28/24 Rx triamterene 75 1 tab PO DAILY #90 tabs 05/14/24 10/28/24 Rx mg-hydrochlorothiazide 50 mg tablet insulin glargine-yfgn 100 unit/mL 20 unit (0.2 mL) subcut QAM #15 mL 06/21/24 10/28/24 Rx (3 mL) subcutaneous pen (Semglee (insulin glargine-yfgn) Pen) blood sugar diagnostic (OneTouch #200 ea 09/09/24 Rx Verio test strips) blood-glucose meter (OneTouch #1 ea 09/09/24 Rx Verio Flex Meter) lancets 33 gauge #200 ea 09/09/24 Rx aspirin 81 mg tablet,delayed 81 mg PO QAM #20 tabs 10/16/24 10/28/24 Rx release cyanocobalamin (vitamin B-12) 500 1,000 mcg (2 x 500 mcg) PO QAM #10 10/16/24 10/28/24 Rx mcg tablet tabs ferrous gluconate 324 mg (38 mg 324 mg PO BIDM #30 tabs 10/16/24 10/28/24 Rx iron) tablet metoprolol tartrate 25 mg tablet 25 mg PO BID #20 tabs 10/16/24 10/28/24 Rx polyethylene glycol 3350 17 gram 17 g PO DAILY #10 ea 10/16/24 10/28/24 Rx oral powder packet (Miralax) tramadol 50 mg tablet 50 mg PO Q4H PRN pain #20 tabs 10/16/24 10/28/24 Rx acetaminophen 325 mg tablet 650 mg PO Q6H PRN PAIN/FEVER 10/27/24 10/28/24 History atorvastatin 20 mg tablet 20 mg PO HS 10/27/24 10/28/24 History cyclobenzaprine 5 mg tablet 5 mg PO Q8H PRN NECK SPASMS 10/27/24 10/28/24 History oxycodone 5 mg tablet 5 mg PO Q6H PRN Pain 10/27/24 10/28/24 History protein supplement 1 ea PO BIDM 10/27/24 10/28/24 History Milk of Magnesia 30 ml PO DAILY PRN Constipation 10/28/24 10/28/24 History bisacodyl 10 mg rectal suppository 10 mg AK DAILY PRN Constipation 10/28/24 10/28/24 History (Dulcolax (bisacodyl)) miconazole nitrate 2 % topical 1 applic topical BID 10/28/24 10/28/24 History cream sodium phosphates 19 gram-7 118 ml AK DAILY PRN Constipation 10/28/24 10/28/24 History gram/118 mL enema (Fleet Enema) Patient History Medical History Paroxysmal SVT (supraventricular tachycardia) 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 Prolonged QT interval Surgical History S/P femoral-tibial bypass S/P vascular surgery Social History Smoking Status: Former smoker Tobacco Type: Cigarettes Age Started Using Tobacco: 19; Age Quit Using Tobacco: 78; packs per day: 1; Cigarettes Per Day: 3-5 - "cut way back since my foot"; Second Hand Exposure: No; Do You Dip or Chew Tobacco: No; Hx Alcohol Use: No Hx Substance Use: No Preferred Language: Sri Lankan Communication Ability: Effective Asset Protection Greeter Required: No Beliefs That Will Affect Care: None Current Living Situation: [facility] Current Living Situation Comment: patient lives alone, states son does live close by Feels Safe at Home: Yes Assistive Devices: Cane and Walker Results & Data Vital Signs (Past 12 Hours) Vital Signs Temp Pulse Pulse Resp BP Pulse Ox O2 Del Method 10/29/24 12:41 36.9 C 70 16 136/68 97 Room Air 10/29/24 12:22 Room Air 10/29/24 08:06 36.5 C 82 16 152/77 H 94 Room Air 10/29/24 05:29 86 10/29/24 04:38 37.1 C Laboratory Results Laboratory Results - last 48 hr 10/28/24 10/28/24 10/28/24 13:01 13:21 13:58 WBC 13.15 H RBC 4.64 L Hgb 12.1 L Hct 38.7 L MCV 83.4 MCH 26.1 MCHC 31.3 L RDW Std Deviation 53.1 H RDW Coeff of Neftali 17.6 H Plt Count 237 MPV 9.2 L Immature Gran % (Auto) 0.6 Neut % (Auto) 90.9 Lymph % (Auto) 3.6 [place] % (Auto) 4.7 Eos % (Auto) 0.0 Baso % (Auto) 0.2 Neut # (Auto) 11.96 H Lymph # (Auto) 0.47 L [place] # (Auto) 0.62 H Eos # (Auto) 0.00 Baso # (Auto) 0.02 Immature Gran # (Auto) 0.08 PT 11.8 INR 1.1 APTT 30 PTT Ratio 1.1 VBG pH 7.45 H VBG pCO2 36 L VBG pO2 < 20 VBG HCO3 25 VBG O2 Saturation < 60.0 VBG Base Excess 1.2 Sodium 135 L Potassium 4.0 Chloride 101 Carbon Dioxide 23 Anion Gap 11 BUN 30 H Creatinine 0.88 Est Cr Clr Drug Dosing Not Reportable eGFR 88.01 BUN/Creatinine Ratio 34.1 H Glucose 191 H POC Glucose Lactate 3.0 H* Calcium 9.5 Magnesium 1.9 Total Bilirubin 1.3 H Direct Bilirubin 0.2 AST 16 ALT 9 Alkaline Phosphatase 87 Troponin I High Sens 42.3 H Total Protein 9.1 H Albumin 3.8 Procalcitonin 0.92 H Urine Color Yellow Urine Appearance Clear Urine pH 5.0 Ur Specific [place] 1.021 Urine Protein 3+ H Urine Glucose (UA) Negative Urine Ketones Negative Urine Blood 3+ H Urine Nitrite Negative Urine Bilirubin Negative Urine Urobilinogen Negative Ur Leukocyte Esterase Trace H Urine WBC (Auto) 0-5 Urine RBC (Auto) 6-10 H U Hyaline Cast (Auto) 0-2 U Epithel Cells (Auto) 0-2 Urine Bacteria (Auto) None Seen Urine Comment Random Vancomycin Staphylococcus sp PCR DETECTED A Staph aureus (PCR) DETECTED A mecA/C & MREJ Resist Gene MRSA DETECTED A* Bld Cult ID Panel PCR See PCR Comment 10/28/24 10/28/24 10/28/24 17:03 19:18 22:00 WBC 12.83 H RBC 3.82 L Hgb 10.5 L Hct 31.6 L MCV 82.7 MCH 27.5 MCHC 33.2 RDW Std Deviation 53.0 H RDW Coeff of Neftali 17.4 H Plt Count 182 MPV 9.1 L Immature Gran % (Auto) Neut % (Auto) Lymph % (Auto) [place] % (Auto) Eos % (Auto) Baso % (Auto) Neut # (Auto) Lymph # (Auto) [place] # (Auto) Eos # (Auto) Baso # (Auto) Immature Gran # (Auto) PT INR APTT PTT Ratio VBG pH VBG pCO2 VBG pO2 VBG HCO3 VBG O2 Saturation VBG Base Excess Sodium 136 Potassium 3.4 L Chloride 105 Carbon Dioxide 22 Anion Gap 9 BUN 30 H Creatinine 0.91 Est Cr Clr Drug Dosing 62.5 eGFR 86.27 BUN/Creatinine Ratio 33.0 H Glucose 165 H POC Glucose 176 H 181 H Lactate 1.4 Calcium 8.7 Magnesium Total Bilirubin Direct Bilirubin AST ALT Alkaline Phosphatase Troponin I High Sens 62.8 H* D Total Protein Albumin Procalcitonin Urine Color Urine Appearance Urine pH Ur Specific [place] Urine Protein Urine Glucose (UA) Urine Ketones Urine Blood Urine Nitrite Urine Bilirubin Urine Urobilinogen Ur Leukocyte Esterase Urine WBC (Auto) Urine RBC (Auto) U Hyaline Cast (Auto) U Epithel Cells (Auto) Urine Bacteria (Auto) Urine Comment Random Vancomycin Staphylococcus sp PCR Staph aureus (PCR) mecA/C & MREJ Resist Gene Bld Cult ID Panel PCR 10/29/24 10/29/24 10/29/24 08:16 08:26 11:14 WBC 6.75 RBC 3.61 L Hgb 9.9 L Hct 30.3 L MCV 83.9 MCH 27.4 MCHC 32.7 RDW Std Deviation 54.3 H RDW Coeff of Neftali 17.6 H Plt Count 138 MPV 9.4 Immature Gran % (Auto) Neut % (Auto) Lymph % (Auto) [place] % (Auto) Eos % (Auto) Baso % (Auto) Neut # (Auto) Lymph # (Auto) [place] # (Auto) Eos # (Auto) Baso # (Auto) Immature Gran # (Auto) PT INR APTT PTT Ratio VBG pH VBG pCO2 VBG pO2 VBG HCO3 VBG O2 Saturation VBG Base Excess Sodium 138 Potassium 3.0 L Chloride 109 H Carbon Dioxide 20 L Anion Gap 9 BUN 38 H Creatinine 1.03 Est Cr Clr Drug Dosing 55.1 eGFR 74.35 BUN/Creatinine Ratio 36.9 H Glucose 148 H POC Glucose 157 H Lactate Calcium 8.1 L Magnesium Total Bilirubin Direct Bilirubin AST ALT Alkaline Phosphatase Troponin I High Sens Total Protein Albumin Procalcitonin Urine Color Urine Appearance Urine pH Ur Specific [place] Urine Protein Urine Glucose (UA) Urine Ketones Urine Blood Urine Nitrite Urine Bilirubin Urine Urobilinogen Ur Leukocyte Esterase Urine WBC (Auto) Urine RBC (Auto) U Hyaline Cast (Auto) U Epithel Cells (Auto) Urine Bacteria (Auto) Urine Comment Random Vancomycin 9.8 L Staphylococcus sp PCR Staph aureus (PCR) mecA/C & MREJ Resist Gene Bld Cult ID Panel PCR 10/29/24 12:13 WBC RBC Hgb Hct MCV MCH MCHC RDW Std Deviation RDW Coeff of Neftali Plt Count MPV Immature Gran % (Auto) Neut % (Auto) Lymph % (Auto) [place] % (Auto) Eos % (Auto) Baso % (Auto) Neut # (Auto) Lymph # (Auto) [place] # (Auto) Eos # (Auto) Baso # (Auto) Immature Gran # (Auto) PT INR APTT PTT Ratio VBG pH VBG pCO2 VBG pO2 VBG HCO3 VBG O2 Saturation VBG Base Excess Sodium Potassium Chloride Carbon Dioxide Anion Gap BUN Creatinine Est Cr Clr Drug Dosing eGFR BUN/Creatinine Ratio Glucose POC Glucose 173 H Lactate Calcium Magnesium Total Bilirubin Direct Bilirubin AST ALT Alkaline Phosphatase Troponin I High Sens Total Protein Albumin Procalcitonin Urine Color Urine Appearance Urine pH Ur Specific [place] Urine Protein Urine Glucose (UA) Urine Ketones Urine Blood Urine Nitrite Urine Bilirubin Urine Urobilinogen Ur Leukocyte Esterase Urine WBC (Auto) Urine RBC (Auto) U Hyaline Cast (Auto) U Epithel Cells (Auto) Urine Bacteria (Auto) Urine Comment Random Vancomycin Staphylococcus sp PCR Staph aureus (PCR) mecA/C & MREJ Resist Gene Bld Cult ID Panel PCR Microbiology 10/28/24 13:03 Blood Aerobic Blood Culture - Preliminary Gram positive cocci clusters 10/28/24 13:03 Blood Anaerobic Blood Culture - Preliminary Gram positive cocci clusters 10/28/24 13:01 Blood Aerobic Blood Culture - Preliminary Gram positive cocci clusters 10/28/24 13:01 Blood Anaerobic Blood Culture - Preliminary Gram positive cocci clusters Diagnostic Findings Chest X-Ray 10/28/24 12:49 XR chest 1V not portable CLINICAL HISTORY: Sepsis COMPARISON STUDY: 07/26/2024 FINDINGS: Heart size and pulmonary vasculature are normal. Inspiration is shallow. No consolidation or pleural effusion seen. No pneumothorax. IMPRESSION: No acute findings. ACT 112: Negative or not required by law. Electronically signed by: Galo Menjivar M.D. 10/28/2024 1:49 PM Femur X-Ray 10/28/24 13:14 XR femur RT 2V routine CLINICAL HISTORY: recent surgery COMPARISON: None FINDINGS: There is qakrz-yfs-[id number] amputation at the mid to distal shaft right femur. Skin geovany remain distally. No acute fracture or dislocation. No evidence of osteomyelitis. There are mild degenerative changes at the right hip. IMPRESSION: Postoperative exam as described. ACT 112: Negative or not required by law. Electronically signed by: Galo Menjivar M.D. 10/28/2024 1:50 PM Cervical Spine MRI 10/28/24 16:11 Clinical History: Possible infection Technique: Sagittal and axial T1 and T2-weighted magnetic resonance images were obtained of the cervical spine without gadolinium contrast. No prior examination is available for comparison. Findings: There is fluid and edema in the prevertebral space from the level of the dens to the level of C5 no clear discrete prevertebral abscess is identified. There is material of mildly high T2 signal intensity in the epidural space from the level of the dens at the level of C3-4. The cervical vertebrae are in normal alignment with no listhesis seen. No fracture is identified. No focal osseous lesion is noted. The overall bone marrow signal intensity of the vertebrae is unremarkable. There are degenerative end plate changes at C5-6 and C6-7. There is atlantoaxial osteoarthritis. There is no definite sign of infectious discitis or osteomyelitis. There is no sign of acute ligamentous injury. The spinal cord is of normal signal intensity with no focal lesion seen. The cerebellar tonsils are normally situated. There is opacification of the visualized right mastoid air cells At C2-C3, there is mild spinal stenosis due to a disc bulge combined with the material in the epidural space. The neural foramen are patent At C3-C4, there is spinal stenosis due to a disc bulge and a left paracentral disc protrusion. There is bilateral neural foramen narrowing that may affect the exiting C4 nerve roots At C4-C5, there is a disc bulge without spinal cord or neural foramen compromise At C5-C6, there is mild spinal stenosis with mild spinal cord deformity due to a disc bulge and a left paracentral disc protrusion. There is bilateral neural foramen narrowing that may affect the exiting C6 nerve roots At C6-C7, there is a disc bulge without spinal stenosis. There is right neural foramen narrowing that may affect the right C7 nerve root At C7-T1, no disc herniation is present. There is no spinal stenosis or nerve root compression Impression: 1. No definite sign of infectious discitis or osteomyelitis in the cervical spine 2. Fluid and edema in the prevertebral space. Possible etiologies include infection and postoperative change. Clinical correlation is recommended. No clear discrete abscess is identified. Contrast enhanced CT of the neck could be considered for further evaluation 3. Intermediate signal intensity material in the epidural space at the level of the dens to C4-5. This could be due to infectious or other inflammatory tissue. No clear discrete epidural abscess is identified at this time 4. Spinal stenosis at C3-4 with compression of the spinal cord due to a disc bulge and a disc herniation. No definite cord edema or myelomalacia is seen 5. Less severe spinal stenosis at C2-3 due to a disc bulge and the material in the epidural space 6. Mild spinal stenosis at C5-6 7. Bilateral C3-4 and C5-6 and right C6-7 neural foramen narrowing, which may affect the exiting nerve roots 8. Opacification of the right mastoid air cells that may be due to inflammatory mastoiditis ACT 112: Positive. There are findings on this exam that require communication between the performing entity and the patient following Patient Test Result Information Act ([place] ACT 112) guidelines. Electronically signed by Tevin Mtz 10-28-2024 7:37 PM Medications Administered Home Medications Medication Instructions Recorded Confirmed Last Taken bismuth tribrom-petrolatum,wh 4" X #100 ea 04/18/24 04/18/24 Unknown 4" bandage (Xeroform Petrolatum Dressing) tamsulosin 0.4 mg capsule (Flomax) 0.4 mg PO HS #90 caps 04/18/24 10/28/24 10/26/24 blood-glucose sensor (Dexcom G7 #3 ea 04/30/24 Unknown Sensor device) blood-glucose,director of therapy services,cont #1 ea 04/30/24 Unknown (Dexcom G7 Lining [place]) thiamine HCl (vitamin B1) 100 mg 100 mg PO BID 05/07/24 10/28/24 10/27/24 08:30 tablet potassium chloride 20 mEq 20 meq PO BID #180 tabs 05/14/24 10/28/24 10/27/24 08:30 tablet,extended release(part/cryst) sertraline 50 mg tablet 50 mg PO BID #180 tabs 05/14/24 10/28/24 10/27/24 08:30 triamterene 75 1 tab PO DAILY #90 tabs 05/14/24 10/28/24 10/27/24 mg-hydrochlorothiazide 50 mg tablet insulin glargine-yfgn 100 unit/mL 20 unit (0.2 mL) subcut QAM #15 mL 06/21/24 10/28/24 10/27/24 (3 mL) subcutaneous pen (Semglee (insulin glargine-yfgn) Pen) blood sugar diagnostic (OneTouch #200 ea 09/09/24 Unknown Verio test strips) blood-glucose meter (OneTouch #1 ea 09/09/24 Unknown Verio Flex Meter) lancets 33 gauge #200 ea 09/09/24 Unknown aspirin 81 mg tablet,delayed 81 mg PO QAM #20 tabs 10/16/24 10/28/24 10/27/24 release cyanocobalamin (vitamin B-12) 500 1,000 mcg (2 x 500 mcg) PO QAM #10 10/16/24 10/28/24 10/27/24 mcg tablet tabs ferrous gluconate 324 mg (38 mg 324 mg PO BIDM #30 tabs 10/16/24 10/28/24 10/27/24 iron) tablet metoprolol tartrate 25 mg tablet 25 mg PO BID #20 tabs 10/16/24 10/28/24 10/27/24 08:30 polyethylene glycol 3350 17 gram 17 g PO DAILY #10 ea 10/16/24 10/28/24 10/27/24 oral powder packet (Miralax) tramadol 50 mg tablet 50 mg PO Q4H PRN pain #20 tabs 10/16/24 10/28/24 10/27/24 16:36 acetaminophen 325 mg tablet 650 mg PO Q6H PRN PAIN/FEVER 10/27/24 10/28/24 10/27/24 13:35 atorvastatin 20 mg tablet 20 mg PO HS 10/27/24 10/28/24 10/26/24 cyclobenzaprine 5 mg tablet 5 mg PO Q8H PRN NECK SPASMS 10/27/24 10/28/24 10/27/24 14:19 oxycodone 5 mg tablet 5 mg PO Q6H PRN Pain 10/27/24 10/28/24 10/27/24 14:18 protein supplement 1 ea PO BIDM 10/27/24 10/28/24 10/27/24 Milk of Magnesia 30 ml PO DAILY PRN Constipation 10/28/24 10/28/24 Unknown bisacodyl 10 mg rectal suppository 10 mg AK DAILY PRN Constipation 10/28/24 10/28/24 Unknown (Dulcolax (bisacodyl)) miconazole nitrate 2 % topical 1 applic topical BID 10/28/24 10/28/24 Unknown cream sodium phosphates 19 gram-7 118 ml AK DAILY PRN Constipation 10/28/24 10/28/24 Unknown gram/118 mL enema (Fleet Enema) Active Medications Generic Name Dose Route Start Last Admin Trade Name Freq PRN Reason Stop Dose Admin Aspirin 81 mg 10/29/24 09:00 10/29/24 09:07 Aspirin 81 Mg Ectab PO 11/28/24 08:59 81 mg QAM ESTEFANI Administration Atorvastatin Calcium 20 mg 10/28/24 21:00 10/28/24 23:05 Atorvastatin 20 Mg Tab PO 11/27/24 20:59 20 mg HS ESTEFANI Administration Cyanocobalamin 1,000 mcg 10/29/24 09:00 10/29/24 12:39 Cyanocobalamin (B-12) 500 Mcg Tablet PO 11/28/24 08:59 1,000 mcg QAM ESTEFANI Administration Cyclobenzaprine HCl 5 mg 10/28/24 16:00 10/29/24 09:06 Cyclobenzaprine Hcl 5 Mg Tab PO 11/27/24 15:59 5 mg Q8H PRN Administration NECK SPASMS Ferrous Gluconate 324 mg 10/28/24 17:00 10/29/24 09:07 Ferrous Gluconate 324 Mg Tab PO 11/27/24 16:59 324 mg BIDM ESTEFANI Administration Heparin Sodium (Porcine) 5,000 units 10/28/24 22:00 10/29/24 14:48 Heparin Sod 5,000 Unit/0.5 Ml Vial SQ 11/27/24 21:59 5,000 units Q8 ESTEFANI Administration Vancomycin HCl 750 mg/ Sodium 265 mls @ 200 mls/hr 10/28/24 23:00 10/29/24 13:05 Chloride IV 11/11/24 22:59 Infused Q12H ESTEFANI Infusion Piperacillin Sod/Tazobactam Sod 4.5 gm in 100 mls @ 25 mls/hr 10/29/24 01:00 10/29/24 13:27 Zosyn IV 10/31/24 00:59 Infused Q8H ESTEFANI Infusion Protocol Sodium Chloride 1,000 mls @ 80 mls/hr 10/28/24 16:15 10/29/24 09:21 Nss IV 10/31/24 16:14 80 mls/hr .[id number] ESTEFANI Administration Acetaminophen 1,000 mg in 100 mls @ 400 mls/hr 10/29/24 03:30 10/29/24 15:08 Ofirmev IV 11/01/24 03:29 Infused Q8 ESTEFANI Infusion Insulin Aspart 0 units 10/28/24 17:15 10/29/24 12:52 Insulin Aspart Per Unit Charge SC 11/27/24 17:14 2 units ACHS ESTEFANI Administration Insulin Glargine 10 units 10/29/24 09:00 10/29/24 09:18 Lantus Per Unit Charge SC 11/28/24 08:59 10 units DAILY ESTEFANI Administration Insulin Glargine 0 units 10/28/24 21:00 10/28/24 23:08 Lantus Per Unit Charge SC 11/27/24 20:59 Not Given HS ESTEFANI Protocol Ketorolac Tromethamine 15 mg 10/28/24 22:38 10/29/24 13:12 Ketorolac Tromethamine 15 Mg/Ml Vial IV 11/02/24 22:37 15 mg Q6H PRN Administration Breakthrough Pain Lidocaine 1 patch 10/29/24 09:00 10/29/24 09:19 Lidocaine 5% 1 Patch TD 11/28/24 08:59 1 patch QAM ESTEFANI Administration Metoprolol Tartrate 25 mg 10/28/24 21:00 10/29/24 09:06 Metoprolol Tartrate 25 Mg Tab PO 11/27/24 20:59 25 mg BID ETSEFANI Administration Miconazole Nitrate 1 appln 10/28/24 21:00 10/29/24 09:19 Miconazole Nitrate 2% Cr 30 Gm Tube TOP 11/27/24 20:59 1 appln BID ESTEFANI Administration Polyethylene Glycol 17 gm 10/29/24 09:00 10/29/24 09:16 Polyethylene (Miralax) 17 Gm Pack PO 11/28/24 08:59 17 gm DAILY ESTEFANI Administration Potassium Chloride 20 meq 10/28/24 21:00 10/29/24 09:17 Potassium Chloride Crtab 20 Meq Tabcr PO 11/27/24 20:59 20 meq BID ESTEFANI Administration Sertraline HCl 50 mg 10/28/24 21:00 10/29/24 09:07 Sertraline Hcl 50 Mg Tablet PO 11/27/24 20:59 50 mg BID ESTEFANI Administration Tamsulosin HCl 0.4 mg 10/28/24 21:00 10/28/24 23:07 Tamsulosin Hcl 0.4 Mg Cap PO 11/27/24 20:59 0.4 mg HS ESTEFANI Administration Thiamine HCl 100 mg 10/28/24 21:00 10/29/24 09:07 Thiamine Hcl 100 Mg Tab PO 11/27/24 20:59 100 mg BID ESTEFANI Administration Tramadol HCl 50 mg 10/28/24 16:41 10/29/24 13:19 Tramadol Hcl 50 Mg Tablet PO 11/27/24 15:59 50 mg Q4H PRN Administration Moderate Pain (Scale 4, 5, 6) Triamterene/Hydrochlorothiazide 1 tab 10/29/24 09:00 10/29/24 09:08 Triamterene/Hctz 37.5/25mg Tab PO 11/28/24 08:59 1 tab DAILY ESTEFANI Administration
[2024-10-29] MEDS: REMOVE LIDODERM PATCH SCH (20:47)
--- NOTE | 2024-10-30 00:49 | Magnetic Resonance Report ---
CLINICAL HISTORY: Positive blood cultures above the knee amputation right leg skin geovany remain, scanned on 1.5T normal mode, geovany wanded nonferrous best scans possible due to pt motion, ran propeller sequences rule out sepsis, infection post surgery limited study. COMPARISON: None provided. TECHNIQUE: MRI Right femur on 1.5 T [facility] Current included T1W SE axial/coronal/sagittal, T2W sagittal and T2 TIRM axial/coronal acquisitions with multiplanar reformatted images for interrogation on the PACS workstation. Contrast dose: Non contrast exam. FINDINGS: Limitation: Inevitable motion artifacts seen in femur and soft tissues obscuring fine details significantly limiting the sensitivity of the examination. Muscles and tendons: Marked soft tissue edema and inflammatory changes seen involving anterior compartment of thigh and gluteal musculature on right returning hyperintense signal on T2W and PDFS images suggesting myositis due to inflammatory changes. The rest of the muscles and tendons of the extensors, flexors, adductors, abductors, rotators and hamstring groups appear unremarkable. Bones: Right femur is partly seen, distal part is not well visualized likely resected. Please correlate clinically. Ligaments: Normal ligaments seen. Subcutaneous soft tissue: Extensive soft tissue inflammatory changes seen in right anterolateral aspect of right thigh. Neurovascular bundle: Grossly unremarkable. Joint fluid/ bursae: The visualized hip joint appear unremarkable. No iliopsoas or subtrochanteric bursal effusion seen. No focal fluid collection or soft tissue mass noted. IMPRESSION: Limitation: Inevitable motion artifacts seen in the femur and soft tissues obscuring fine details significantly limiting the sensitivity of the examination. 1. Right femur is partly seen, distal part is not well visualized likely resected. Please correlate clinically. 2. Marked soft tissue edema and inflammatory changes seen involving anterior compartment of right thigh and gluteal musculature suggesting myositis due to inflammatory changes. 3. Extensive soft tissue inflammatory changes seen in right anterolateral aspect of right thigh. 4. Would recommend repeat scan with contrast enhanced to rule out infective collection. Electronically signed by Jassi Card 10-30-2024 12:48 AM
[2024-10-30 07:19] LABS: Hematocrit (blood only) 28.2 % (42.0-52.0); Hemoglobin 9.1 g/dl (14.0-18.0); Mean Corpuscular Hemoglobin 26.8 pg (25.0-34.0); Mean Corpuscular Volume 82.9 fL (80.0-100.0); Platelet Count 112 K/uL (130-400); RDW Standard Deviation 54.0 fL (36.4-46.3); Red Blood Count 3.40 M/uL (4.70-6.10); White Blood Count 5.10 K/ul (4.8-10.8)
[2024-10-30 07:38] LABS: Anion Gap 8.0 (3-11); Blood Urea Nitrogen 38.0 mg/dl (6-23); Calcium 7.5 mg/dl (8.6-10.3); Carbon Dioxide 18.0 mmol/L (21-32); Chloride 109.0 mmol/L (98-107); Creatinine Clr Calc Pharmacy 55.6 ml/min; Glucose 99.0 mg/dl (70-99(Fasting)); Potassium 3.3 mmol/L (3.5-5.1); Sodium 135.0 mmol/L (136-145)
--- NOTE | 2024-10-30 11:27 | Hospitalist Progress Note ---
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 -complaining of c-spine pain -MRI c-spine showing fluid and edema in prevertebral space -CT of the neck with contrast recommended for further evaluation -MRI right femur- recommended repeat scan with contrast to r/o infective collection -echo showing no veg -ID consult appreciated -vancomycin continued -repeat blood cultures ordered -pt does have decubitus ulcers, will culture for MRSA (2) Peripheral arterial disease with history of revascularization: Plan: -right leg AKA (3) Hyperlipidemia: Plan: -atorvastatin (4) Benign essential hypertension: Plan: -metoprolol (5) Type 2 diabetes mellitus with diabetic polyneuropathy: Plan: -pharm consult for glycemic managment -lantus Plan Heparin SQ for DVT px Admission and Anticipated Discharge Date Admission Date: October 28, 2024 Subjective No events overnight. Pt resting in bed, awake and conversating. Review of Systems Review of Systems: CONST: Negative for fever, body aches and chills. HENT: Negative for neck pain/stiffness, headache, congestion, sore throat, swelling. EYES: Negative for discharge/pain or vision changes. RESP: Negative for cough/hemoptysis and shortness of breath. CV: Negative chest pain, difficulty breathing, palpitations. ABD: Negative pain, nausea, vomiting. : Negative increase frequency, dysuria, blood in urine or stool. MUSC: Negative for muscle aches, edema. SKIN: Negative rash, lesions/sores. NEURO: Negative headache, dizziness, weakness. Physical Exam Physical Exam: GENERAL APPEARANCE NAD, activity normal for age, well developed/ well nourished, no cyanosis, pallor, or diaphoresis. EYES lids/conjunctiva normal. EARS/NOSE/THROAT Mucous membranes moist, nares normal, lips/teeth normal uvula midline without oral pharyngeal erythema, exudate or swelling TMs normal bilaterally. No lymphangitis/lymphedema. HEAD/NECK normocephalic atraumatic, no facial trauma, neck is supple. RESPIRATORY respiratory effort normal, speaks in full sentences, no tripod position, no accessory muscle use. Lungs clear to auscultation without rhonchi, wheezes, rales CARDIAC Regular rate and rhythm, no edema. ABDOMINAL Soft, ND/NT. No evidence of fluid wave. No pulsatile masses on exam, rebound tenderness, Baxter sign or pain over Mcburney's point. MUSCLES/EXTREMITIES No abnormal range of motion, no swelling. Right AKA, stump without erythema, or edema. SKIN Warm, pink and dry. No rashes, dermatoses, petechiae or lesions. NEUROLOGICAL Speech is clear and appropriate. Normal level of consciousness. Gait and coordination are normal. 5/5 strength in all extremities. PSYCH Normal mood and affect. Judgement/competence is appropriate Results & Data Results & Data Vital Signs (Past 12 Hours) Vital Signs Temp Pulse Pulse Resp BP Pulse Ox O2 Del Method 10/30/24 11:14 Room Air 10/30/24 08:38 37.0 C 99 H 16 155/78 H 94 Room Air 10/30/24 07:35 99 H 10/30/24 04:00 36.7 C 94 H 18 155/84 H 94 Room Air PG Care Time/CCT Total # of Minutes Spent Total Time Spent with Patient: Total time spent is greater than 50% in coordination of care (as documented) at patient's floor/unit and/or counseling patient: Coding Level of Care Code 06803 SUB INP/OBS CARE 2/35MIN Diagnoses MRSA bacteremia R78.81; B95.62 Peripheral arterial disease with history of revascularization I73.9; Z98.890 Mixed hyperlipidemia E78.2 Hyperlipidemia type: mixed hyperlipidemia Benign essential hypertension I10 Type 2 diabetes mellitus with diabetic polyneuropathy, with long-term current use of insulin E11.42; Z79.4 Diabetes mellitus care home insulin use: with intermediate manager use (3) Hyperlipidemia Hyperlipidemia type: mixed hyperlipidemia Qualified Code(s): E78.2 - Mixed hyperlipidemia (5) 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 mellitus care home insulin use: with intermediate manager use Qualified Code(s): E11.42 - Type 2 diabetes mellitus with diabetic polyneuropathy; Z79.4 - long-term (current) use of insulin
[2024-10-30] MEDS: POTASSIUM CHLORIDE / WTR 10 MEQ/100 ML PLCT IV SCH (11:54)
--- NOTE | 2024-10-30 13:00 | Pharmacy Report ---
Pharmacy Glycemic Short Note 2 - Date of Service October 30, 2024 - Glycemic Short BSG Results (Last 24 hours): 10/29/24 10/29/24 10/30/24 16:55 20:10 06:55 Glucose 99 POC Glucose 122 H 102 H 10/30/24 10/30/24 08:24 12:18 Glucose POC Glucose 113 H 118 H OUTPATIENT ANTIDIABETIC REGIMEN: * Semglee (insulin glargine) 20 units SQ QAM * HbA1c: 7.3% (07/28/2024) ASSESSMENT: * 79 year old male with T2DM using insulin glargine (long-acting) only at home * Unknown when last dose glargine given DRUG SAFETY COORDINATOR * Blood glucose ranging from 110-170s * Given lower fasting glucose value of 99 this AM, holding glargine in the AM for now * Continue sliding scale glargine in the evening * Patient only eating 25% of breakfast as charted which could be contributing to lower glucose values * Vanc for MRSA bacteremia/potential osteomyelitis PLAN FOR INPATIENT GLYCEMIC CONTROL: * Basal insulin * Lantus 0, 5, or 10 units SQ QPM (5 units if BSG 180-250 mg/dL, 10 units if >250 mg/dL) * Bolus insulin * NovoLog per scale ACHS or Q6hrs while NPO * Goal Range: Low 110 mg/dL - High 140 mg/dL * Correction Factor: 30 mg/dL/unit * Nutritional / Prandial insulin per carb ratio of 1 unit per 10 grams CHO consumed
[2024-10-30] MEDS: OPTIRAY 320 100ml IV ONE (13:03)
--- NOTE | 2024-10-30 13:52 | CT Scan Report ---
CERVICAL SPINE CT WITH CONTRAST CLINICAL HISTORY: Evaluate for infection. COMPARISON STUDY: Cervical spine CT October 27, 2024 and MRI of the cervical spine October 28. TECHNIQUE: Axial images of the cervical spine were obtained following intravenous injection of 94 cc of Optiray 320 IV. Sagittal and coronal reformats were viewed. A dose lowering technique was utilized adhering to the principles of ALARA. FINDINGS: This exam is mildly compromised given difficulty positioning. Reversal the cervical lordosi s is unchanged. There are no cervical spine fractures. There are no suspicious osseous lesions. No ar eas of bony erosion are identified. Sensitivity for detection of discitis is significantly diminished given CT technique but there is no evidence for discitis. Moderate prevertebral edema is again noted . This is shown on MRI October 28, 2024. The posterior upper cervical spine paraspinous soft tissue edema on MRI is not well depicted by CT. Of note, there is enhancing/hyperdense material within the anterior epidural space at the C2-C4 levels, as shown on MRI. This appears to have mass effect upon t he thecal sac, suboptimally assessed by CT. Moderate multilevel disc space narrowing and endplate ost eophytosis is present. There is severe facet arthrosis. IMPRESSION: 1. Moderate prevertebral edema, as shown on MRI October 30, 2024. This is nonspecific but given the clinical history suspicious for an infectious process. 2. Enhancing/hyperdense material within the anterior epidural space at the C2-C4 levels, as shown on MRI of October 30, 2024. Associated mass effect upon the thecal sac. This is suspicious for an infe ctious process and could represent epidural abscess or phlegmon. A pre and postcontrast MRI of the ce rvical spine is recommended to exclude abscess. Spine surgical consultation might also be considered. This finding will be called/faxed to the ordering provider at time of dictation. 3. No CT evidence for discitis or osteomyelitis. 4. No cervical spine fractures. 5. Severe multilevel facet arthrosis and moderate degenerative disc disease within the cervical spine . ACT 112: Negative or not required by law. Electronically signed by: Bigg Ha M.D. 10/30/2024 1:50 PM
--- NOTE | 2024-10-30 14:46 | Surgery Progress Note ---
Date of Service October 30, 2024 Assessment & Plan (1) Amputation above knee: Plan: Pt now 2 wks s/p RLRee MATOS, was scheduled to see in office tomorrow for staple removal. Wound appears to be healing well. [place] removed today. Will see in office in 4-6 wks. Please call if needed. Admission and Anticipated Discharge Date Admission Date: October 28, 2024 Subjective 79 yo m s/p RLE AKA d/t osteomyelitis of RLE, seen in f/u today for staple removal. Pt denies any new complaints or concerns regarding his RLE. Review of Systems Review of Systems: All systems reviewed & are unremarkable except as noted in HPI & below Physical Exam Constitutional: well developed and + thin; not in distress Musculoskeletal: Extremities: + amputation noted (RLE AKA C/D/I with geovany. No erythema, ecchymosis, or drainage) Skin: no rashes, warm and dry Neurologic: moves all extremities and awake; no focal motor deficits and not confused Psychiatric: Orientation: alert and oriented x 3 Affect: + flat affect Results & Data Vital Signs (Past 12 Hours) Vital Signs Temp Pulse Pulse Resp BP Pulse Ox O2 Del Method 10/30/24 11:14 Room Air 10/30/24 08:38 37.0 C 99 H 16 155/78 H 94 Room Air 10/30/24 07:35 99 H 10/30/24 04:00 36.7 C 94 H 18 155/84 H 94 Room Air
--- NOTE | 2024-10-30 15:28 | Infectious Disease Progress Nt ---
Date of Service October 30, 2024 Assessment & Plan (1) Neck pain: (2) Bacteremia due to Gram-positive bacteria: (3) Amputation above knee: Plan This is a 79-year-old male with a past medical history of DM2, PAD status post fem-popliteal bypass 02/2024, BPH, hypertension, right foot gangrene with second toe osteomyelitis status post ray amputation 02/22/2024 with clear margins (wound culture+ for MSSA and GBS, discharged on 7 days of cefazolin) right fifth metatarsal osteomyelitis with bone cultures+ for MRSA with associated MRSA bacteremia status post daptomycin for 6 weeks through 09/09/2024 with persistent/worsening osteomyelitis prompting return to ED 09/2024 with worsening right foot wound and fifth metatarsal osteomyelitis, 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 Wound culture grew MRSA and group B strep. He received 24 hours of daptomycin and ertapenem post OR. He was discharged on . He returned to the ED on 10/27/2024 for neck pain. Workup was negative. He was discharged. He was asked to return on 10/28/2024 for positive blood cultures (4/4 bottles positive for MRSA). He complains of neck pain. On admission, he was afebrile but then developed a fever with a Tmax of 39.1 . Labs: WBC 12.83,, procalcitonin 0.92, BUN 30, creatinine 0.9. Repeat blood cultures also positive for MRSA via [employer]. Chest x-ray showed no acute findings. Right femur x-ray shows a [id number] amputation at the mid to distal shaft of the femur. Skin geovany remain distally. No evidence of osteomyelitis. There are mild degenerative changes of the right hip. Cervical spine CT shows no definite signs of infectious discitis or osteomyelitis of the cervical spine. There is fluid and edema in the prevertebral space. Possible etiologies include infection, postoperative changes. No clear discrete abscess noted. There is intermediate signal intensity material in the epidural space at the level of the dens to C4-5. This could be infectious or inflammatory. No discrete epidural abscess identified. Stenosis at C3 C5 with compression of the spinal cord due to disc bulge and disc herniation. No definitive cord edema. There is opacification of the right mastoids which may be due to inflammatory mastoiditis. Transthoracic echocardiogram with no valve vegetations. He was started on vancomycin and Zosyn. Infectious disease consulted for MRSA bacteremia. An E consult without video evaluation completed as video/camera is not working Microbiology 10/27/2024 blood culture 4/4 bottles MRSA 10/28/2024 blood culture 4/4 bottles MRSA Prior microbiology 10/08/2024 right foot wound culture MRSA, Streptococcus agalactiae (GBS) 07/29/24 right foot foot bone culture MRSA 07/29/2024 right foot wound culture MRSA 07/26 blood culture 4/4 bottles positive for MRSA 02/22/2024 right toe wound culture MSSA, Streptococcus agalactiae (GBS) Antibiotics vancomycin 10/28current Zosyn #MRSA Bacteremia # Neck pain #Abnormal cervical spine imaging with possible epidural abscess or phlegmon #Possible myositis at R AKA site # S/p Right AKA s/p failed course of medical management with abx for osteomyelitis, 10/11/2024 # History pf MRSA Right foot osteomyelitis and MRSA bacteremia 07/2024 #PAD, Status post vascularization Discussion Source of MRSa bacteremia, may be the cervical spine or R AKA site Has neck pain and abnormal cervical spine findings with ? epidural abscess or phlegmon. No OM or discitis R LE AKA site shows inflammatory changes with ? myositis. Cant rule out collection on imaging w/o contrast --Vasc surgery following. TTE without vegatations Recommendations Continue IV vancomycin per pharmacy protocol Follow up Repeat BCx 10/30 , if positive check [facility]EL[facility] Ortho spine or Neurosx eval given cervical spine findings, neck pain and MRSA bacteremia Follow up vasc sx re- ? myositis,R/o t infective collection at AKA site given MRSA bacteremia Monitor for metastatic seeding to joints , skin, clinical allergist, spine. If no source identified for bacteremia, will need further evaluation of cervical spine given MRI findings. ID will continue to follow. Brian Bhat MD, MPH Infectious Disease [facility] Call [phone] with questions Admission and Anticipated Discharge Date Admission Date: October 28, 2024 Subjective This patient recommendation is based on a telemedicine consult request which was completed asynchronously through chart review and information provided by the primary physician. The patient was not seen or examined today. The evaluation is consultative in nature and all patient care and treatment decisions can either be accepted or rejected by the patient's primary hospital-based treating physician using their own independent medical judgment for their patient. Time Spent Reviewing Chart: 21 - 30 minutes -Afebrile -CT spine with contrast shows Enhancing/hyperdense material within the anterior epidural space at the C2-C4 levels, suspicious for an infectious process ? epidural abscess or phlegmon -CT femur shows soft tissue edema and inflammatory changes in right thigh and gluteal musculature suggesting myositis -10/27 and 10/28 Bcx + MRSA -Repeat BCx 10/30 NGTD. -WBC 5.10 . Results & Data Vital Signs (Past 12 Hours) Vital Signs Temp Pulse Pulse Resp BP Pulse Ox O2 Del Method 10/30/24 15:01 76 10/30/24 11:14 Room Air 10/30/24 08:38 37.0 C 99 H 16 155/78 H 94 Room Air 10/30/24 07:35 99 H 10/30/24 04:00 36.7 C 94 H 18 155/84 H 94 Room Air Laboratory Results 10/28/24 13:03 Aerobic Blood Culture - Final Blood Staph aureus MRSA Anaerobic Blood Culture - Final Staph aureus MRSA 10/28/24 13:01 Aerobic Blood Culture - Final Blood Staph aureus MRSA Anaerobic Blood Culture - Final Staph aureus MRSA 10/30/24 07:02 Aerobic Blood Culture - Pending Blood Anaerobic Blood Culture - Pending 10/30/24 06:55 Aerobic Blood Culture - Pending Blood Anaerobic Blood Culture - Pending 10/30/24 10/30/24 10/30/24 12:18 08:24 06:55 WBC 5.10 RBC 3.40 L Hgb 9.1 L Hct 28.2 L MCV 82.9 MCH 26.8 MCHC 32.3 RDW Std Deviation 54.0 H RDW Coeff of Neftali 17.7 H Plt Count 112 L MPV 9.3 L Sodium 135 L Potassium 3.3 L Chloride 109 H Carbon Dioxide 18 L Anion Gap 8 BUN 38 H Creatinine 1.02 Est Cr Clr Drug Dosing 55.6 eGFR 75.23 BUN/Creatinine Ratio 37.3 H Glucose 99 POC Glucose 118 H 113 H Calcium 7.5 L 10/29/24 10/29/24 20:10 16:55 WBC RBC Hgb Hct MCV MCH MCHC RDW Std Deviation RDW Coeff of Neftali Plt Count MPV Sodium Potassium Chloride Carbon Dioxide Anion Gap BUN Creatinine Est Cr Clr Drug Dosing eGFR BUN/Creatinine Ratio Glucose POC Glucose 102 H 122 H Calcium Diagnostic Findings Chest X-Ray 10/28/24 12:49 XR chest 1V not portable CLINICAL HISTORY: Sepsis COMPARISON STUDY: 07/26/2024 FINDINGS: Heart size and pulmonary vasculature are normal. Inspiration is shallow. No consolidation or pleural effusion seen. No pneumothorax. IMPRESSION: No acute findings. ACT 112: Negative or not required by law. Electronically signed by: Galo Menjivar M.D. 10/28/2024 1:49 PM Femur X-Ray 10/28/24 13:14 XR femur RT 2V routine CLINICAL HISTORY: recent surgery COMPARISON: None FINDINGS: There is [id number] amputation at the mid to distal shaft right femur. Skin geovany remain distally. No acute fracture or dislocation. No evidence of osteomyelitis. There are mild degenerative changes at the right hip. IMPRESSION: Postoperative exam as described. ACT 112: Negative or not required by law. Electronically signed by: Galo Menjivar M.D. 10/28/2024 1:50 PM Cervical Spine MRI 10/28/24 16:11 Clinical History: Possible infection Technique: Sagittal and axial T1 and T2-weighted magnetic resonance images were obtained of the cervical spine without gadolinium contrast. No prior examination is available for comparison. Findings: There is fluid and edema in the prevertebral space from the level of the dens to the level of C5 no clear discrete prevertebral abscess is identified. There is material of mildly high T2 signal intensity in the epidural space from the level of the dens at the level of C3-4. The cervical vertebrae are in normal alignment with no listhesis seen. No fracture is identified. No focal osseous lesion is noted. The overall bone marrow signal intensity of the vertebrae is unremarkable. There are degenerative end plate changes at C5-6 and C6-7. There is atlantoaxial osteoarthritis. There is no definite sign of infectious discitis or osteomyelitis. There is no sign of acute ligamentous injury. The spinal cord is of normal signal intensity with no focal lesion seen. The cerebellar tonsils are normally situated. There is opacification of the visualized right mastoid air cells At C2-C3, there is mild spinal stenosis due to a disc bulge combined with the material in the epidural space. The neural foramen are patent At C3-C4, there is spinal stenosis due to a disc bulge and a left paracentral disc protrusion. There is bilateral neural foramen narrowing that may affect the exiting C4 nerve roots At C4-C5, there is a disc bulge without spinal cord or neural foramen compromise At C5-C6, there is mild spinal stenosis with mild spinal cord deformity due to a disc bulge and a left paracentral disc protrusion. There is bilateral neural foramen narrowing that may affect the exiting C6 nerve roots At C6-C7, there is a disc bulge without spinal stenosis. There is right neural foramen narrowing that may affect the right C7 nerve root At C7-T1, no disc herniation is present. There is no spinal stenosis or nerve root compression Impression: 1. No definite sign of infectious discitis or osteomyelitis in the cervical spine 2. Fluid and edema in the prevertebral space. Possible etiologies include infection and postoperative change. Clinical correlation is recommended. No clear discrete abscess is identified. Contrast enhanced CT of the neck could be considered for further evaluation 3. Intermediate signal intensity material in the epidural space at the level of the dens to C4-5. This could be due to infectious or other inflammatory tissue. No clear discrete epidural abscess is identified at this time 4. Spinal stenosis at C3-4 with compression of the spinal cord due to a disc bulge and a disc herniation. No definite cord edema or myelomalacia is seen 5. Less severe spinal stenosis at C2-3 due to a disc bulge and the material in the epidural space 6. Mild spinal stenosis at C5-6 7. Bilateral C3-4 and C5-6 and right C6-7 neural foramen narrowing, which may affect the exiting nerve roots 8. Opacification of the right mastoid air cells that may be due to inflammatory mastoiditis ACT 112: Positive. There are findings on this exam that require communication between the performing entity and the patient following Patient Test Result Information Act ([place] ACT 112) guidelines. Electronically signed by Tevin Mtz 10-28-2024 7:37 PM Femur MRI 10/28/24 16:11 CLINICAL HISTORY: Positive blood cultures above the knee amputation right leg skin geovany remain, scanned on 1.5T normal mode, geovany wanded nonferrous best scans possible due to pt motion, ran propeller sequences rule out sepsis, infection post surgery limited study. COMPARISON: None provided. TECHNIQUE: MRI Right femur on 1.5 T [facility] Current included T1W SE axial/coronal/sagittal, T2W sagittal and T2 TIRM axial/coronal acquisitions with multiplanar reformatted images for interrogation on the PACS workstation. Contrast dose: Non contrast exam. FINDINGS: Limitation: Inevitable motion artifacts seen in femur and soft tissues obscuring fine details significantly limiting the sensitivity of the examination. Muscles and tendons: Marked soft tissue edema and inflammatory changes seen involving anterior compartment of thigh and gluteal musculature on right returning hyperintense signal on T2W and PDFS images suggesting myositis due to inflammatory changes. The rest of the muscles and tendons of the extensors, flexors, adductors, abductors, rotators and hamstring groups appear unremarkable. Bones: Right femur is partly seen, distal part is not well visualized likely resected. Please correlate clinically. Ligaments: Normal ligaments seen. Subcutaneous soft tissue: Extensive soft tissue inflammatory changes seen in right anterolateral aspect of right thigh. Neurovascular bundle: Grossly unremarkable. Joint fluid/ bursae: The visualized hip joint appear unremarkable. No iliopsoas or subtrochanteric bursal effusion seen. No focal fluid collection or soft tissue mass noted. IMPRESSION: Limitation: Inevitable motion artifacts seen in the femur and soft tissues obscuring fine details significantly limiting the sensitivity of the examination. 1. Right femur is partly seen, distal part is not well visualized likely resected. Please correlate clinically. 2. Marked soft tissue edema and inflammatory changes seen involving anterior compartment of right thigh and gluteal musculature suggesting myositis due to inflammatory changes. 3. Extensive soft tissue inflammatory changes seen in right anterolateral aspect of right thigh. 4. Would recommend repeat scan with contrast enhanced to rule out infective collection. Electronically signed by Jassi Card 10-30-2024 12:[address] 10/30/24 11:[address] WITH CONTRAST CLINICAL HISTORY: Evaluate for infection. COMPARISON STUDY: Cervical spine CT October 27, 2024 and MRI of the cervical spine October 28, 2024. TECHNIQUE: Axial images of the cervical spine were obtained following intra venous injection of 94 cc of Optiray 320 IV. Sagittal and coronal reformats were viewed. A dose lowering technique was utilized adhering to the principles of ALARA. FINDINGS: This exam is mildly compromised given difficulty positioning. Reversal the cervical lordosis is unchanged. There are no cervical spine fractures. There are no suspicious osseous lesions. No areas of bony erosion are identified. Sensitivity for detection of discitis is significantly diminished given CT technique but there is no evidence for discitis. Moderate prevertebral edema is again noted. This is shown on MRI October 28, 2024. The posterior upper cervical spine paraspinous soft tissue edema on MRI is not well depicted by CT. Of note, there is enhancing/hyperdense material within the anterior epidural space at the C2-C4 levels, as shown on MRI. This appears to have mass effect upon the thecal sac, suboptimally assessed by CT. Moderate multilevel disc space narrowing and endplate osteophytosis is present. There is severe facet arthrosis. IMPRESSION: 1. Moderate prevertebral edema, as shown on MRI October 30, 2024. This is nonspecific but given the clinical history suspicious for an infectious process. 2. Enhancing/hyperdense material within the anterior epidural space at the C2-C4 levels, as shown on MRI of October 30, 2024. Associated mass effect upon the thecal sac. This is suspicious for an infectious process and could represent epidural abscess or phlegmon. A pre and postcontrast MRI of the cervical spine is recommended to exclude abscess. Spine surgical consultation might also be considered. This finding will be called/faxed to the ordering provider at time of dictation. 3. No CT evidence for discitis or osteomyelitis. 4. No cervical spine fractures. 5. Severe multilevel facet arthrosis and moderate degenerative disc disease within the cervical spine. ACT 112: Negative or not required by law. Electronically signed by: Bigg Ha M.D. 10/30/2024 1:50 PM Medications Administered Home Medications Medication Instructions Recorded Confirmed Last Taken bismuth tribrom-petrolatum,wh 4" X #100 ea 04/18/24 04/18/24 Unknown 4" bandage (Xeroform Petrolatum Dressing) tamsulosin 0.4 mg capsule (Flomax) 0.4 mg PO HS #90 caps 04/18/24 10/28/24 10/26/24 blood-glucose sensor (Dexcom G7 #3 ea 04/30/24 Unknown Sensor device) blood-glucose,event security officer,cont #1 ea 04/30/24 Unknown (Dexcom G7 Psychology Assistant) thiamine HCl (vitamin B1) 100 mg 100 mg PO BID 05/07/24 10/28/24 10/27/24 08:30 tablet potassium chloride 20 mEq 20 meq PO BID #180 tabs 0410/28/24 10/27/24 08:30 tablet,extended release(part/cryst) sertraline 50 mg tablet 50 mg PO BID #180 tabs 05/14/24 10/28/24 10/27/24 08:30 triamterene 75 1 tab PO DAILY #90 tabs 05/14/24 10/28/24 10/27/24 mg-hydrochlorothiazide 50 mg tablet insulin glargine-yfgn 100 unit/mL 20 unit (0.2 mL) subcut QAM #15 mL 06/21/24 10/28/24 10/27/24 (3 mL) subcutaneous pen (Semglee (insulin glargine-yfgn) Pen) blood sugar diagnostic (OneTouch #200 ea 09/09/24 Unknown Verio test strips) blood-glucose meter (OneTouch #1 ea 09/09/24 Unknown Verio Flex Meter) lancets 33 gauge #200 ea 09/09/24 Unknown aspirin 81 mg tablet,delayed 81 mg PO QAM #20 tabs 10/16/24 10/28/24 10/27/24 release cyanocobalamin (vitamin B-12) 500 1,000 mcg (2 x 500 mcg) PO QAM #10 10/16/24 10/28/24 10/27/24 mcg tablet tabs ferrous gluconate 324 mg (38 mg 324 mg PO BIDM #30 tabs 10/16/24 10/28/24 10/27/24 iron) tablet metoprolol tartrate 25 mg tablet 25 mg PO BID #20 tabs 10/16/24 10/28/24 10/27/24 08:30 polyethylene glycol 3350 17 gram 17 g PO DAILY #10 ea 10/16/24 10/28/24 10/27/24 oral powder packet (Miralax) tramadol 50 mg tablet 50 mg PO Q4H PRN pain #20 tabs 10/16/24 10/28/24 10/27/24 16:36 acetaminophen 325 mg tablet 650 mg PO Q6H PRN PAIN/FEVER 10/27/24 10/28/24 10/27/24 13:35 atorvastatin 20 mg tablet 20 mg PO HS 10/27/24 10/28/24 10/26/24 cyclobenzaprine 5 mg tablet 5 mg PO Q8H PRN NECK SPASMS 10/27/24 10/28/2410/27 14:19 oxycodone 5 mg tablet 5 mg PO Q6H PRN Pain 10/27/24 10/28/24 10/27/24 14:18 protein supplement 1 ea PO BIDM 10/27/24 10/28/24 10/27/24 Milk of Magnesia 30 ml PO DAILY PRN Constipation 10/28/24 10/28/24 Unknown bisacodyl 10 mg rectal suppository 10 mg TX DAILY PRN Constipation 10/28/24 10/28/24 Unknown (Dulcolax (bisacodyl)) miconazole nitrate 2 % topical 1 applic topical BID 10/28/24 10/28/24 Unknown cream sodium phosphates 19 gram-7 118 ml TX DAILY PRN Constipation 10/28/24 10/28/24 Unknown gram/118 mL enema (Fleet Enema) Active Medications Generic Name Dose Route Start Last Admin Trade Name Freq PRN Reason Stop Dose Admin Aspirin 81 mg 10/29/24 09:00 10/30/24 09:50 Aspirin 81 Mg Ectab PO 11/28/24 08:59 81 mg QAM ESTEFANI Administration Atorvastatin Calcium 20 mg 10/28/24 21:00 10/29/24 20:45 Atorvastatin 20 Mg Tab PO 11/27/24 20:59 20 mg HS ESTEFANI Administration Cyanocobalamin 1,000 mcg 10/29/24 09:00 10/30/24 09:50 Cyanocobalamin (B-12) 500 Mcg Tablet PO 11/28/24 08:59 1,000 mcg QAM ESTEFANI Administration Cyclobenzaprine HCl 5 mg 10/28/24 16:00 10/29/24 09:06 Cyclobenzaprine Hcl 5 Mg Tab PO 11/27/24 15:59 5 mg Q8H PRN Administration NECK SPASMS Ferrous Gluconate 324 mg 10/28/24 17:00 10/30/24 09:49 Ferrous Gluconate 324 Mg Tab PO 11/27/24 16:59 324 mg BIDM ESTEFANI Administration Heparin Sodium (Porcine) 5,000 units 10/28/24 22:00 10/30/24 14:11 Heparin Sod 5,000 Unit/0.5 Ml Vial SQ 11/27/24 21:59 5,000 units Q8 ESTEFANI Administration Vancomycin HCl 750 mg/ Sodium 265 mls @ 200 mls/hr 10/28/24 23:00 10/30/24 13:46 Chloride IV 11/11/24 22:59 Infused Q12H ESTEFANI Infusion Sodium Chloride 1,000 mls @ 80 mls/hr 10/28/24 16:15 10/30/24 09:46 Nss IV 10/31/24 16:14 80 mls/hr .[id number] ESTEFANI Administration Acetaminophen 1,000 mg in 100 mls @ 400 mls/hr 10/29/24 03:30 10/30/24 14:33 Ofirmev IV 11/01/24 03:29 Infused Q8 ESTEFANI Infusion Insulin Aspart 0 units 10/28/24 17:15 10/30/24 12:57 Insulin Aspart Per Unit Charge SC 11/27/24 17:14 Not Given ACHS ESTEFANI Insulin Glargine 0 units 10/28/24 21:00 10/29/24 20:18 Lantus Per Unit Charge SC 11/27/24 20:59 Not Given HS [facility] Protocol Ketorolac Tromethamine 15 mg 10/28/24 22:38 10/30/24 11:56 Ketorolac Tromethamine 15 Mg/Ml Vial IV 11/02/24 22:37 15 mg Q6H PRN Administration Breakthrough Pain Lidocaine 1 patch 10/29/24 09:00 10/30/24 09:50 Lidocaine 5% 1 Patch TD 11/28/24 08:59 1 patch QAM ESTEFANI Administration Metoprolol Tartrate 25 mg 10/28/24 21:00 10/30/24 09:50 Metoprolol Tartrate 25 Mg Tab PO 11/27/24 20:59 25 mg BID ESTEFANI Administration Miconazole Nitrate 1 appln 10/28/24 21:00 10/30/24 09:51 Miconazole Nitrate 2% Cr 30 Gm Tube TOP 11/27/24 20:59 1 appln BID ESTEFANI Administration Miscellaneous 1 each 10/29/24 21:00 10/29/24 20:47 Remove Lidoderm Patch N/A 11/28/24 20:59 1 each DAILY@2100 ESTEFANI Administration Oxycodone HCl 5 mg 10/28/24 16:41 10/30/24 09:52 Oxycodone Hcl Ir 5 Mg Tab (Immediate Release) PO 11/11/24 15:59 5 mg Q6H PRN Administration Severe Pain (Scale 7, 8, 9,10) Polyethylene Glycol 17 gm 10/29/24 09:00 10/30/24 09:51 Polyethylene (Miralax) 17 Gm Pack PO 11/28/24 08:59 17 gm DAILY ESTEFANI Administration Potassium Chloride 20 meq 10/28/24 21:00 10/30/24 09:52 Potassium Chloride Crtab 20 Meq Tabcr PO 11/27/24 20:59 20 meq BID ESTEFANI Administration Sertraline HCl 50 mg 10/28/24 21:00 10/30/24 09:50 Sertraline Hcl 50 Mg Tablet PO 11/27/24 20:59 50 mg BID ESTEFANI Administration Tamsulosin HCl 0.4 mg 10/28/24 21:00 10/29/24 20:45 Tamsulosin Hcl 0.4 Mg Cap PO 11/27/24 20:59 0.4 mg HS ESTEFANI Administration Thiamine HCl 100 mg 10/28/24 21:00 10/30/24 09:50 Thiamine Hcl 100 Mg Tab PO 11/27/24 20:59 100 mg BID ESTEFANI Administration Tramadol HCl 50 mg 10/28/24 16:41 10/29/24 13:19 Tramadol Hcl 50 Mg Tablet PO 11/27/24 15:59 50 mg Q4H PRN Administration Moderate Pain (Scale 4, 5, 6) Triamterene/Hydrochlorothiazide 1 tab 10/29/24 09:00 10/30/24 09:49 Triamterene/Hctz 37.5/25mg Tab PO 11/28/24 08:59 1 tab DAILY ESTEFANI Administration
[2024-10-31 07:24] LABS: Hematocrit (blood only) 30.8 % (42.0-52.0); Hemoglobin 9.9 g/dl (14.0-18.0); Mean Corpuscular Hemoglobin 26.7 pg (25.0-34.0); Mean Corpuscular Volume 83.0 fL (80.0-100.0); Platelet Count 118 K/uL (130-400); RDW Standard Deviation 54.1 fL (36.4-46.3); Red Blood Count 3.71 M/uL (4.70-6.10); White Blood Count 5.38 K/ul (4.8-10.8)
[2024-10-31 07:50] LABS: Anion Gap 6.0 (3-11); Blood Urea Nitrogen 30.0 mg/dl (6-23); Calcium 7.6 mg/dl (8.6-10.3); Carbon Dioxide 20.0 mmol/L (21-32); Chloride 108.0 mmol/L (98-107); Creatinine Clr Calc Pharmacy 69.1 ml/min; Glucose 99.0 mg/dl (70-99(Fasting)); Potassium 3.8 mmol/L (3.5-5.1); Sodium 134.0 mmol/L (136-145)
[2024-10-31] MEDS: OPTIRAY 320 100ml IV ONE (08:41)
--- NOTE | 2024-10-31 08:59 | Consultation ---
Date of Consultation October 31, 2024 Assessment & Plan (1) Neck pain: I have reviewed imaging and case with Dr. Ortiz. Patient is currently neurologically stable. There is concern for of a cervical abscess causing cord compression/severe stenosis. No evidence of cervical osteomyelitis or discitis. For now we will continue to monitor this. Continue treatment with IV antibiotic therapy. If he has any type of neurological decline may have to proceed with surgical intervention. Dr. Ortiz will reassess tomorrow. History of Present Illness Reason for Consultation: Cervical infection Attending Physician: Tone Miner MD History of Present Illness Is a pleasant 79-year-old gentleman with a complicated medical history including osteomyelitis of the right fifth metatarsal this summer and recent right AKA 3 weeks ago. He went to the ER 10/27 where blood cultures were form performed and he was called back because they ended up growing out MRSA. He has been admitted since 10/28 due to bacteremia. He is currently on IV vancomycin He reports neck pain for a few weeks. Denies upper extremity pain, numbness or weakness. States that he is ambulating with a walker at home. He lives alone. Allergies Allergy/AdvReac Type Severity Reaction Status Date / Time animal dander Allergy Unknown Unknown Verified 10/27/24 21:57 doxycycline Allergy Rash Verified 11/01/24 16:49 Home Medications Medication Instructions Recorded Confirmed Type bismuth tribrom-petrolatum,wh 4" X #100 ea 04/18/24 04/18/24 Rx 4" bandage (Xeroform Petrolatum Dressing) tamsulosin 0.4 mg capsule (Flomax) 0.4 mg PO HS #90 caps 04/18/24 10/28/24 Rx blood-glucose sensor (Dexcom G7 #3 ea 04/30/24 Rx Sensor device) blood-glucose,tourist information assistant,cont #1 ea 04/30/24 Rx (Dexcom G7 Electrical Engineering Professor) thiamine HCl (vitamin B1) 100 mg 100 mg PO BID 05/07/24 10/28/24 History tablet potassium chloride 20 mEq 20 meq PO BID #180 tabs 05/14/24 10/28/24 Rx tablet,extended release(part/cryst) sertraline 50 mg tablet 50 mg PO BID #180 tabs 05/14/24 10/28/24 Rx triamterene 75 1 tab PO DAILY #90 tabs 05/14/24 10/28/24 Rx mg-hydrochlorothiazide 50 mg tablet insulin glargine-yfgn 100 unit/mL 20 unit (0.2 mL) subcut QAM #15 mL 06/21/24 10/28/24 Rx (3 mL) subcutaneous pen (Semglee (insulin glargine-yfgn) Pen) blood sugar diagnostic (OneTouch #200 ea 09/09/24 Rx Verio test strips) blood-glucose meter (OneTouch #1 ea 09/09/24 Rx Verio Flex Meter) lancets 33 gauge #200 ea 09/09/24 Rx aspirin 81 mg tablet,delayed 81 mg PO QAM #20 tabs 10/16/24 10/28/24 Rx release cyanocobalamin (vitamin B-12) 500 1,000 mcg (2 x 500 mcg) PO QAM #10 10/16/24 10/28/24 Rx mcg tablet tabs ferrous gluconate 324 mg (38 mg 324 mg PO BIDM #30 tabs 10/16/24 10/28/24 Rx iron) tablet metoprolol tartrate 25 mg tablet 25 mg PO BID #20 tabs 10/16/24 10/28/24 Rx polyethylene glycol 3350 17 gram 17 g PO DAILY #10 ea 10/16/24 10/28/24 Rx oral powder packet (Miralax) tramadol 50 mg tablet 50 mg PO Q4H PRN pain #20 tabs 10/16/24 10/28/24 Rx acetaminophen 325 mg tablet 650 mg PO Q6H PRN PAIN/FEVER 10/27/24 10/28/24 History atorvastatin 20 mg tablet 20 mg PO HS 10/27/24 10/28/24 History cyclobenzaprine 5 mg tablet 5 mg PO Q8H PRN NECK SPASMS 10/27/24 10/28/24 History oxycodone 5 mg tablet 5 mg PO Q6H PRN Pain 10/27/24 10/28/24 History protein supplement 1 ea PO BIDM 10/27/24 10/28/24 History Milk of Magnesia 30 ml PO DAILY PRN Constipation 10/28/24 10/28/24 History bisacodyl 10 mg rectal suppository 10 mg MI DAILY PRN Constipation 10/28/24 10/28/24 History (Dulcolax (bisacodyl)) miconazole nitrate 2 % topical 1 applic topical BID 10/28/24 10/28/24 History cream sodium phosphates 19 gram-7 118 ml MI DAILY PRN Constipation 10/28/24 10/28/24 History gram/118 mL enema (Fleet Enema) Patient History Medical History Paroxysmal SVT (supraventricular tachycardia) 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 Prolonged QT interval Surgical History S/P femoral-tibial bypass S/P vascular surgery Social History Smoking Status: Former smoker Tobacco Type: Cigarettes Age Started Using Tobacco: 19; Age Quit Using Tobacco: 78; packs per day: 1; Cigarettes Per Day: 3-5 - "cut way back since my foot"; Second Hand Exposure: No; Do You Dip or Chew Tobacco: No; Hx Alcohol Use: No Hx Substance Use: No Preferred Language: Yi Communication Ability: Effective Log Roller Required: No Beliefs That Will Affect Care: None Current Living Situation: [facility] Current Living Situation Comment: patient lives alone, states son does live close by Feels Safe at Home: Yes Assistive Devices: Cane and Walker Review of Systems Review of Systems: All systems reviewed & are unremarkable except as noted in HPI & below Physical Exam Physical Exam: He is alert and orient x 3 Cooperative with exam No acute distress Afebrile No evidence of upper motor neuron signs bilateral upper extremities 5/5 strength bilateral finger gripping, finger intrinsics, wrist extensors, wrist flexors, biceps, triceps, deltoid Results & Data Vital Signs (Past 12 Hours) Vital Signs Temp Pulse Pulse Resp BP Pulse Ox O2 Del Method 10/31/24 07:45 Room Air 10/31/24 07:30 36.6 C 92 H 19 163/81 H 92 Room Air 10/31/24 02:17 37.3 C 87 18 163/81 H 94 Room Air 10/30/24 22:08 37.4 C 80 20 165/80 H 95 Room Air 10/30/24 21:46 77 Diagnostic Findings [facility], [place] [phone] Magnetic Resonance Report Patient: JULIO CESAR LAGOS Admit Date: 10/28/24 MR#: [id number] Address1: [address] Acct ID:[id number] Address2: Date: 1945 [facility] [place] Zip: [place] [address] Age: 79 Location: [facility] Sex: M Room/Bed: [facility] 1-7 Att Phy: Tone Miner MD Diagnosis: MRDA BACTEREMIA Kathi Phy: Stephan Townsend, III, LABELS MOLDER Service Date: 10/28/24 Fam Phy: Interpreting Phy: Tevin Mtz MDAdmit Phy: Tone Miner MD Ordering Phy: Tone Miner MD cc: ~ Clinical History: Possible infection Technique: Sagittal and axial T1 and T2-weighted magnetic resonance images were obtained of the cervical spine without gadolinium contrast. No prior examination is available for comparison. Findings: There is fluid and edema in the prevertebral space from the level of the dens to the level of C5 no clear discrete prevertebral abscess is identified. There is material of mildly high T2 signal intensity in the epidural space from the level of the dens at the level of C3-4. The cervical vertebrae are in normal alignment with no listhesis seen. No fracture is identified. No focal osseous lesion is noted. The overall bone marrow signal intensity of the vertebrae is unremarkable. There are degenerative end plate changes at C5-6 and C6-7. There is atlantoaxial osteoarthritis. There is no definite sign of infectious discitis or osteomyelitis. There is no sign of acute ligamentous injury. The spinal cord is of normal signal intensity with no focal lesion seen. The cerebellar tonsils are normally situated. There is opacification of the visualized right mastoid air cells At C2-C3, there is mild spinal stenosis due to a disc bulge combined with the material in the epidural space. The neural foramen are patent At C3-C4, there is spinal stenosis due to a disc bulge and a left paracentral disc protrusion. There is bilateral neural foramen narrowing that may affect the exiting C4 nerve roots At C4-C5, there is a disc bulge without spinal cord or neural foramen compromise At C5-C6, there is mild spinal stenosis with mild spinal cord deformity due to a disc bulge and a left paracentral disc protrusion. There is bilateral neural foramen narrowing that may affect the exiting C6 nerve roots At C6-C7, there is a disc bulge without spinal stenosis. There is right neural foramen narrowing that may affect the right C7 nerve root At C7-T1, no disc herniation is present. There is no spinal stenosis or nerve root compression Impression: 1. No definite sign of infectious discitis or osteomyelitis in the cervical spine 2. Fluid and edema in the prevertebral space. Possible etiologies include infection and postoperative change. Clinical correlation is recommended. No clear discrete abscess is identified. Contrast enhanced CT of the neck could be considered for further evaluation 3. Intermediate signal intensity material in the epidural space at the level of the dens to C4-5. This could be due to infectious or other inflammatory tissue. No clear discrete epidural abscess is identified at this time 4. Spinal stenosis at C3-4 with compression of the spinal cord due to a disc bulge and a disc herniation. No definite cord edema or myelomalacia is seen 5. Less severe spinal stenosis at C2-3 due to a disc bulge and the material in the epidural space 6. Mild spinal stenosis at C5-6 7. Bilateral C3-4 and C5-6 and right C6-7 neural foramen narrowing, which may affect the exiting nerve roots 8. Opacification of the right mastoid air cells that may be due to inflammatory mastoiditis ACT 112: Positive. There are findings on this exam that require communication between the performing entity and the patient following Patient Test Result Information Act ([place] ACT 112) guidelines. Electronically signed by Tevin Mtz 10-28-2024 7:37 PM Dictated: 10/28/24 [id number] Transcribed: [facility], [place] [phone] CT Scan Report Patient: JULIO CESAR LAGOS Admit Date: 10/28/24 MR#: [id number] Address1: [address] Acct ID:[id number] Address2: Date: 1945 [facility] [place] Zip: [place] [address] Age: 79 Location: 2N Sex: M Room/Bed: N283-2 Att Phy: Tone Miner MD Diagnosis: MRDA BACTEREMIA Kathi Phy: Stephan Townsend III, CRNP Service Date: 10/30/24 Fam Phy: Interpreting Phy: Bigg Ha MDAdmit Phy: Tone Miner MD Ordering Phy: Tone Miner MD cc: ~ CERVICAL SPINE CT WITH CONTRAST CLINICAL HISTORY: Evaluate for infection. COMPARISON STUDY: Cervical spine CT October 27, 2024 and MRI of the cervical spine October 28, 2024. TECHNIQUE: Axial images of the cervical spine were obtained following intraven ous injection of 94 cc of Optiray 320 IV. Sagittal and coronal reformats were viewed. A dose lowering technique was utilized adhering to the principles of ALARA. FINDINGS: This exam is mildly compromised given difficulty positioning. Reversal the cervical lordosis is unchanged. There are no cervical spine fractures. There are no suspicious osseous lesions. No areas of bony erosion are identified. Sensitivity for detection of discitis is significantly diminished given CT technique but there is no evidence for discitis. Moderate prevertebral edema is again noted. This is shown on MRI October 28, 2024. The posterior upper cervical spine paraspinous soft tissue edema on MRI is not well depicted by CT. Of note, there is enhancing/hyperdense material within the anterior epidural space at the C2-C4 levels, as shown on MRI. This appears to have mass effect upon the thecal sac, suboptimally assessed by CT. Moderate multilevel disc space narrowing and endplate osteophytosis is present. There is severe facet arthrosis. IMPRESSION: 1. Moderate prevertebral edema, as shown on MRI October 30, 2024. This is nonspecific but given the clinical history suspicious for an infectious process. 2. Enhancing/hyperdense material within the anterior epidural space at the C2-C4 levels, as shown on MRI of October 30, 2024. Associated mass effect upon the thecal sac. This is suspicious for an infectious process and could represent epidural abscess or phlegmon. A pre and postcontrast MRI of the cervical spine is recommended to exclude abscess. Spine surgical consultation might also be considered. This finding will be called/faxed to the ordering provider at time of dictation. 3. No CT evidence for discitis or osteomyelitis. 4. No cervical spine fractures. 5. Severe multilevel facet arthrosis and moderate degenerative disc disease within the cervical spine. ACT 112: Negative or not required by law. Electronically signed by: Bigg Ha M.D. 10/30/2024 1:50 PM Dictated: 10/30/24 1330 Transcribed: 10/30/24 1331 Document Auto-Saved
--- NOTE | 2024-10-31 09:19 | Hospitalist Progress Note ---
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 Associated mass effect upon the thecal sac. This is suspicious for an infectious process and could represent epidural abscess or phlegmon. -MRI right femur- recommended repeat scan with contrast to r/o infective collection -pt does have decubitus ulcers, will culture for MRSA -echo showing no veg -ID consult appreciated -vancomycin continued -repeat blood cultures 10/30 + -will order CELIA to r/o veg -ortho spine consult appreciated, no surgical intervention at this time - (2) Peripheral arterial disease with history of revascularization: Plan: -right leg AKA (3) Hyperlipidemia: Plan: -atorvastatin (4) Benign essential hypertension: Plan: -metoprolol (5) Type 2 diabetes mellitus with diabetic polyneuropathy: Plan: -pharm consult for glycemic managment -lantus Plan Heparin SQ for DVT px Admission and Anticipated Discharge Date Admission Date: October 28, 2024 Subjective No events overnight. Pt at baseline mental status. Review of Systems Review of Systems: CONST: Negative for fever, body aches and chills. HENT: Negative for neck pain/stiffness, headache, congestion, sore throat, swelling. EYES: Negative for discharge/pain or vision changes. RESP: Negative for cough/hemoptysis and shortness of breath. CV: Negative chest pain, difficulty breathing, palpitations. ABD: Negative pain, nausea, vomiting. : Negative increase frequency, dysuria, blood in urine or stool. MUSC: Negative for muscle aches, edema. SKIN: Negative rash, lesions/sores. NEURO: Negative headache, dizziness, weakness. Physical Exam Physical Exam: GENERAL APPEARANCE NAD, activity normal for age, well developed/ well nourished, no cyanosis, pallor, or diaphoresis. EYES lids/conjunctiva normal. EARS/NOSE/THROAT Mucous membranes moist, nares normal, lips/teeth normal uvula midline without oral pharyngeal erythema, exudate or swelling TMs normal bilaterally. No lymphangitis/lymphedema. HEAD/NECK normocephalic atraumatic, no facial trauma, neck is supple. RESPIRATORY respiratory effort normal, speaks in full sentences, no tripod position, no accessory muscle use. Lungs clear to auscultation without rhonchi, wheezes, rales CARDIAC Regular rate and rhythm, no edema. ABDOMINAL Soft, ND/NT. No evidence of fluid wave. No pulsatile masses on exam, rebound tenderness, Baxter sign or pain over Mcburney's point. MUSCLES/EXTREMITIES No abnormal range of motion, no swelling. Right AKA, stump without erythema, or edema. SKIN Warm, pink and dry. No rashes, dermatoses, petechiae or lesions. NEUROLOGICAL Speech is clear and appropriate. Normal level of consciousness. Gait and coordination are normal. 5/5 strength in all extremities. PSYCH Normal mood and affect. Judgement/competence is appropriate Results & Data Results & Data Vital Signs (Past 12 Hours) Vital Signs Temp Pulse Pulse Resp BP Pulse Ox O2 Del Method 10/31/24 07:45 Room Air 10/31/24 07:30 36.6 C 92 H 19 163/81 H 92 Room Air 10/31/24 02:17 37.3 C 87 18 163/81 H 94 Room Air 10/30/24 22:08 37.4 C 80 20 165/80 H 95 Room Air 10/30/24 21:46 77 PG Care Time/CCT Total # of Minutes Spent Total Time Spent with Patient: Total time spent is greater than 50% in coordination of care (as documented) at patient's floor/unit and/or counseling patient: Coding Level of Care Code 79823 SUB INP/OBS CARE 2/35MIN Diagnoses MRSA bacteremia R78.81; B95.62 Peripheral arterial disease with history of revascularization I73.9; Z98.890 Mixed hyperlipidemia E78.2 Hyperlipidemia type: mixed hyperlipidemia Benign essential hypertension I10 Type 2 diabetes mellitus with diabetic polyneuropathy, with long-term current use of insulin E11.42; Z79.4 Diabetes mellitus penitentiary insulin use: with penitentiary use (3) Hyperlipidemia Hyperlipidemia type: mixed hyperlipidemia Qualified Code(s): E78.2 - Mixed hyperlipidemia (5) 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 mellitus ad terminal makeup operator insulin use: with penitentiary use Qualified Code(s): E11.42 - Type 2 diabetes mellitus with diabetic polyneuropathy; Z79.4 - ad terminal makeup operator (current) use of insulin
--- NOTE | 2024-10-31 09:33 | CT Scan Report ---
RIGHT FEMUR CT WITH CONTRAST CLINICAL HISTORY: r/o infectious collection. Status post right [id number] amputation October 11 025. COMPARISON STUDY: Right femur radiographs and right femur MRI October 28, 2024. TECHNIQUE: Axial images of the right femur and thigh were obtained following intravenous injection of 94 cc of Optiray 320 IV. Sagittal and coronal reformats were viewed. A dose lowering technique was u tilized adhering to the principles of ALARA. FINDINGS: There are postoperative findings consistent with right above knee amputation. No clear bony destruction is present. However, periosteal hyperdensity along the resection margin of the the right femur suggests periostitis. There is an associated 1.9 cm peripherally enhancing focus along the med ial aspect of the distal remaining right femur. There is an adjacent rim enhancing fluid collection w ithin the distal remaining portion of fast this media [place] which measures 4.5 x 1.8 cm. There is no soft tissue gas. There is also a hypodense peripherally enhancing focus within the distal vastus late ralis on image 550 which measures 3.9 x 2.2 cm. Of note, there is edema within remaining portions of vastus lateralis and medialis as well as vastus intermedius. There is moderate fascial fluid within t he mid right thigh. There is no soft tissue gas. There are no fractures. IMPRESSION: 1. Status post right above-knee amputation. No clear bony destruction. However, periosteal hyperdensi ty along the resection margin of the right femur suggests periostitis. Although this could be postsur gical, the findings are suspicious for an infectious process and developing osteomyelitis is within t he differential. 2. Small rim-enhancing intramuscular fluid collections along the medial aspect of the distal right fe mur which measure up to 4.5 x 1.8 cm. Again, these could be postsurgical but are suspicious for small intramuscular abscesses. 3. Hypodense peripherally enhancing focus within the distal vastus lateralis measuring 3.9 x 2.2 cm. This is suggestive of myositis with developing intramuscular abscess. 4. Moderate fascial fluid within the proximal to mid right thigh without soft tissue gas. This is non specific although could represent an infectious process. ACT 112: Negative or not required by law. Electronically signed by: Bigg Ha M.D. 10/31/2024 9:32 AM
--- NOTE | 2024-10-31 13:06 | Pharmacy Report ---
Pharmacy PK ABX Note - Date of Service October 31, 2024 - Assessment and Plan Assessment 10/31 * Random vancomycin level this AM was ~16 mcg/ml - current regimen associated with goal AUC/OLIVERIO ~ predicting ~521 mg/L.hr * Will continue with current regimen 10/29: * 79 year old M receiving vancomycin and piperacillin/tazobactam for treatment of MRSA bacteremia/potential osteomyelitis. Pertinent microbiologic data includes: 05/17 blood culture growing GPCs in clusters. Biofire detected staph aureus w/ mecA resistance gene. MRSA bacteremia. * Day # 2 of antimicrobial therapy. Plan Vancomycin * No change, continue current regimen Pharmacy will continue to follow and will adjust dose/frequency as necessary. Thank you. Pharmacy has transitioned to AUC monitoring for vancomycin. AUC/OLIVERIO is the preferred PK/PD target and is associated with decreased risk of nephrotoxicity compared to traditional trough targets.
--- NOTE | 2024-10-31 15:41 | Infectious Disease Progress Nt ---
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 Wound culture grew MRSA and group B strep. He received 24 hours of daptomycin and ertapenem post OR. He was discharged on . He returned to the ED on 10/27/2024 for neck pain. Workup was negative. He was discharged. He was asked to return on 10/28/2024 for positive blood cultures (4/4 bottles positive for MRSA). He complains of neck pain. On admission, he was afebrile but then developed a fever with a Tmax of 39.1 . Labs: WBC 12.83,, procalcitonin 0.92, BUN 30, creatinine 0.9. Repeat blood cultures also positive for MRSA via [employer]. Chest x-ray showed no acute findings. Right femur x-ray shows a [id number] amputation at the mid to distal shaft of the femur. Skin geovany remain distally. No evidence of osteomyelitis. There are mild degenerative changes of the right hip. Cervical spine CT shows no definite signs of infectious discitis or osteomyelitis of the cervical spine. There is fluid and edema in the prevertebral space. Possible etiologies include infection, postoperative changes. No clear discrete abscess noted. There is intermediate signal intensity material in the epidural space at the level of the dens to C4-5. This could be infectious or inflammatory. No discrete epidural abscess identified. Stenosis at C3 C5 with compression of the spinal cord due to disc bulge and disc herniation. No definitive cord edema. There is opacification of the right mastoids which may be due to inflammatory mastoiditis. Transthoracic echocardiogram with no valve vegetations. He was started on vancomycin and Zosyn. Infectious disease consulted for MRSA bacteremia. An E consult without video evaluation completed as video/camera is not working Microbiology 10/27/2024 blood culture 4/4 bottles MRSA vanco OLIVERIO 1 10/28/2024 blood culture 4/4 bottles MRSA 10/30/2024 blood culture 2/4 bottles MRSA 10/31/2024 blood culture pending Prior microbiology 10/08/2024 right foot wound culture MRSA, Streptococcus agalactiae (GBS) 07/29/24 right foot foot bone culture MRSA 07/29/2024 right foot wound culture MRSA 07/26 blood culture 4/4 bottles positive for MRSA 02/22/2024 right toe wound culture MSSA, Streptococcus agalactiae (GBS) Antibiotics vancomycin 10/28current Zosyn #HIGH grade MRSA Bacteremia #Abnormal cervical spine imaging with possible epidural abscess or phlegmon #Possible myositis at R AKA site # S/p Right AKA s/p failed course of medical management with abx for osteomyelitis, 10/11/2024 #Buttock pressure wound # History pf MRSA Right foot osteomyelitis and MRSA bacteremia 07/2024 #PAD, Status post vascularization Discussion Source of MRSa bacteremia, may be the cervical spine or R AKA site Has neck pain and abnormal cervical spine findings with ? epidural abscess or phlegmon. No OM or discitis R LE AKA site shows inflammatory changes with ? myositis. Cant rule out collection on imaging w/o contrast --Vasc surgery following. TTE without vegatations. Has a pressure ulcer on buttocks that does not appear acutely infected. Recommendations Continue IV vancomycin per pharmacy protocol Follow up Ortho spine given ? cervical abscess and persistent MRSA bacteremia Check CELIA Follow up repeat Bcx 10/31 Follow up vasc sx re- ? myositis,R/o infective collection at AKA site given persistent MRSA bacteremia Monitor for metastatic seeding to joints , skin, conveyor line battery charger, spine. ID will continue to follow. Brian Bhat MD, MPH Infectious Disease [facility] Call [phone] with questions Admission and Anticipated Discharge Date Admission Date: October 28, 2024 Subjective This patient recommendation is based on a telemedicine consult request which was completed asynchronously through chart review and information provided by the primary physician. The patient was not seen or examined today. The evaluation is consultative in nature and all patient care and treatment decisions can either be accepted or rejected by the patient's primary hospital-based treating physician using their own independent medical judgment for their patient. Time Spent Reviewing Chart: 21 - 30 minutes Afebrile Repeat Bcx + MRSA . Results & Data Vital Signs (Past 12 Hours) Vital Signs Temp Pulse Pulse Resp BP Pulse Ox O2 Del Method 10/31/24 15:33 36.9 C 83 20 169/84 H 91 Room Air 10/31/24 11:15 38.0 C H 90 20 178/92 H 92 Room Air 10/31/24 07:45 Room Air 10/31/24 07:30 95 H 10/31/24 07:30 36.6 C 92 H 19 163/81 H 92 Room Air Laboratory Results 10/30/24 07:02 Aerobic Blood Culture - Preliminary Blood Staphylococcus aureus Anaerobic Blood Culture - Preliminary No growth in Anaerobic bottle after 24 hours. 10/30/24 06:55 Aerobic Blood Culture - Preliminary Blood Staphylococcus aureus Anaerobic Blood Culture - Preliminary No growth in Anaerobic bottle after 24 hours. 10/31/24 10/31/24 10/31/24 12:18 10:23 08:00 WBC RBC Hgb Hct MCV MCH MCHC RDW Std Deviation RDW Coeff of Neftali Plt Count MPV Sodium Potassium Chloride Carbon Dioxide Anion Gap BUN Creatinine Est Cr Clr Drug Dosing eGFR BUN/Creatinine Ratio Glucose POC Glucose 150 H 111 H Calcium Random Vancomycin 16.2 10/31/24 10/30/24 10/30/24 06:23 20:22 20:00 WBC 5.38 RBC 3.71 L Hgb 9.9 L Hct 30.8 L MCV 83.0 MCH 26.7 MCHC 32.1 RDW Std Deviation 54.1 H RDW Coeff of Neftali 17.5 H Plt Count 118 L MPV 10.0 Sodium 134 L Potassium 3.8 Chloride 108 H Carbon Dioxide 20 L Anion Gap 6 BUN 30 H Creatinine 0.88 Est Cr Clr Drug Dosing 69.1 eGFR 88.01 BUN/Creatinine Ratio 34.1 H Glucose 99 POC Glucose 86 66 L* Calcium 7.6 L Random Vancomycin 10/30/24 10/30/24 19:57 17:17 WBC RBC Hgb Hct MCV MCH MCHC RDW Std Deviation RDW Coeff of Neftali Plt Count MPV Sodium Potassium Chloride Carbon Dioxide Anion Gap BUN Creatinine Est Cr Clr Drug Dosing eGFR BUN/Creatinine Ratio Glucose POC Glucose 65 L* 86 Calcium Random Vancomycin Diagnostic Findings Cervical Spine MRI 10/28/24 16:11 Clinical History: Possible infection Technique: Sagittal and axial T1 and T2-weighted magnetic resonance images were obtained of the cervical spine without gadolinium contrast. No prior examination is available for comparison. Findings: There is fluid and edema in the prevertebral space from the level of the dens to the level of C5 no clear discrete prevertebral abscess is identified. There is material of mildly high T2 signal intensity in the epidural space from the level of the dens at the level of C3-4. The cervical vertebrae are in normal alignment with no listhesis seen. No fracture is identified. No focal osseous lesion is noted. The overall bone marrow signal intensity of the vertebrae is unremarkable. There are degenerative end plate changes at C5-6 and C6-7. There is atlantoaxial osteoarthritis. There is no definite sign of infectious discitis or osteomyelitis. There is no sign of acute ligamentous injury. The spinal cord is of normal signal intensity with no focal lesion seen. The cerebellar tonsils are normally situated. There is opacification of the visualized right mastoid air cells At C2-C3, there is mild spinal stenosis due to a disc bulge combined with the material in the epidural space. The neural foramen are patent At C3-C4, there is spinal stenosis due to a disc bulge and a left paracentral disc protrusion. There is bilateral neural foramen narrowing that may affect the exiting C4 nerve roots At C4-C5, there is a disc bulge without spinal cord or neural foramen compromise At C5-C6, there is mild spinal stenosis with mild spinal cord deformity due to a disc bulge and a left paracentral disc protrusion. There is bilateral neural foramen narrowing that may affect the exiting C6 nerve roots At C6-C7, there is a disc bulge without spinal stenosis. There is right neural foramen narrowing that may affect the right C7 nerve root At C7-T1, no disc herniation is present. There is no spinal stenosis or nerve root compression Impression: 1. No definite sign of infectious discitis or osteomyelitis in the cervical spine 2. Fluid and edema in the prevertebral space. Possible etiologies include infection and postoperative change. Clinical correlation is recommended. No clear discrete abscess is identified. Contrast enhanced CT of the neck could be considered for further evaluation 3. Intermediate signal intensity material in the epidural space at the level of the dens to C4-5. This could be due to infectious or other inflammatory tissue. No clear discrete epidural abscess is identified at this time 4. Spinal stenosis at C3-4 with compression of the spinal cord due to a disc bulge and a disc herniation. No definite cord edema or myelomalacia is seen 5. Less severe spinal stenosis at C2-3 due to a disc bulge and the material in the epidural space 6. Mild spinal stenosis at C5-6 7. Bilateral C3-4 and C5-6 and right C6-7 neural foramen narrowing, which may affect the exiting nerve roots 8. Opacification of the right mastoid air cells that may be due to inflammatory mastoiditis ACT 112: Positive. There are findings on this exam that require communication between the performing entity and the patient following Patient Test Result Information Act ([place] ACT 112) guidelines. Electronically signed by Tevin Mtz 10-28-2024 7:37 PM Femur MRI 10/28/24 16:11 CLINICAL HISTORY: Positive blood cultures above the knee amputation right leg skin geovany remain, scanned on 1.5T normal mode, geovany wanded nonferrous best scans possible due to pt motion, ran propeller sequences rule out sepsis, infection post surgery limited study. COMPARISON: None provided. TECHNIQUE: MRI Right femur on 1.5 T [facility] Current included T1W SE axial/coronal/sagittal, T2W sagittal and T2 TIRM axial/coronal acquisitions with multiplanar reformatted images for interrogation on the PACS workstation. Contrast dose: Non contrast exam. FINDINGS: Limitation: Inevitable motion artifacts seen in femur and soft tissues obscuring fine details significantly limiting the sensitivity of the examination. Muscles and tendons: Marked soft tissue edema and inflammatory changes seen involving anterior compartment of thigh and gluteal musculature on right returning hyperintense signal on T2W and PDFS images suggesting myositis due to inflammatory changes. The rest of the muscles and tendons of the extensors, flexors, adductors, abductors, rotators and hamstring groups appear unremarkable. Bones: Right femur is partly seen, distal part is not well visualized likely resected. Please correlate clinically. Ligaments: Normal ligaments seen. Subcutaneous soft tissue: Extensive soft tissue inflammatory changes seen in right anterolateral aspect of right thigh. Neurovascular bundle: Grossly unremarkable. Joint fluid/ bursae: The visualized hip joint appear unremarkable. No iliopsoas or subtrochanteric bursal effusion seen. No focal fluid collection or soft tissue mass noted. IMPRESSION: Limitation: Inevitable motion artifacts seen in the femur and soft tissues obscuring fine details significantly limiting the sensitivity of the examination. 1. Right femur is partly seen, distal part is not well visualized likely resected. Please correlate clinically. 2. Marked soft tissue edema and inflammatory changes seen involving anterior compartment of right thigh and gluteal musculature suggesting myositis due to inflammatory changes. 3. Extensive soft tissue inflammatory changes seen in right anterolateral aspect of right thigh. 4. Would recommend repeat scan with contrast enhanced to rule out infective collection. Electronically signed by Jassi Card 10-30-2024 12:[address] 10/30/24 11:[address] WITH CONTRAST CLINICAL HISTORY: Evaluate for infection. COMPARISON STUDY: Cervical spine CT October 27, 2024 and MRI of the cervical spine October 28, 2024. TECHNIQUE: Axial images of the cervical spine were obtained following intravenous injection of 94 cc of Optiray 320 IV. Sagittal and coronal reformats were viewed. A dose lowering technique was utilized adhering to the principles of ALARA. FINDINGS: This exam is mildly compromised given difficulty positioning. Reversal the cervical lordosis is unchanged. There are no cervical spine fractures. There are no suspicious osseous lesions. No areas of bony erosion are identified. Sensitivity for detection of discitis is significantly diminished given CT technique but there is no evidence for discitis. Moderate prevertebral edema is again noted. This is shown on MRI October 28, 2024. The posterior upper cervical spine paraspinous soft tissue edema on MRI is not well depicted by CT. Of note, there is enhancing/hyperdense material within the anterior epidural space at the C2-C4 levels, as shown on MRI. This appears to have mass effect upon the thecal sac, suboptimally assessed by CT. Moderate multilevel disc space narrowing and endplate osteophytosis is present. There is severe facet arthrosis. IMPRESSION: 1. Moderate prevertebral edema, as shown on MRI October 30, 2024. This is nonspecific but given the clinical history suspicious for an infectious process. 2. Enhancing/hyperdense material within the anterior epidural space at the C2-C4 levels, as shown on MRI of October 30, 2024. Associated mass effect upon the thecal sac. This is suspicious for an infectious process and could represent epidural abscess or phlegmon. A pre and postcontrast MRI of the cervical spine is recommended to exclude abscess. Spine surgical consultation might also be considered. This finding will be called/faxed to the ordering provider at time of dictation. 3. No CT evidence for discitis or osteomyelitis. 4. No cervical spine fractures. 5. Severe multilevel facet arthrosis and moderate degenerative disc disease within the cervical spine. ACT 112: Negative or not required by law. Electronically signed by: Bigg Ha M.D. 10/30/2024 1:[address] 10/31/24 07:[address] WITH CONTRAST CLINICAL HISTORY: r/o infectious collection. Status post right [id number] amputation October 11, 2024. COMPARISON STUDY: Right femur radiographs and right femur MRI October 28, 2024. TECHNIQUE: Axial images of the right femur and thigh were obtained following intravenous injection of 94 cc of Optiray 320 IV. Sagittal and coronal reformats were viewed. A dose lowering technique was utilized adhering to the principles of ALARA. FINDINGS: There are postoperative findings consistent with right above knee amputation. No clear bony destruction is present. However, periosteal hyperdensity along the resection margin of the the right femur suggests periostitis. There is an associated 1.9 cm peripherally enhancing focus along the medial aspect of the distal remaining right femur. There is an adjacent rim enhancing fluid collection within the distal remaining portion of fast this media [place] which measures 4.5 x 1.8 cm. There is no soft tissue gas. There is also a hypodense peripherally enhancing focus within the distal vastus lateralis on image 550 which measures 3.9 x 2.2 cm. Of note, there is edema within remaining portions of vastus lateralis and medialis as well as vastus intermedius. There is moderate fascial fluid within the mid right thigh. There is no soft tissue gas. There are no fractures. IMPRESSION: 1. Status post right above-knee amputation. No clear bony destruction. However, periosteal hyperdensity along the resection margin of the right femur suggests periostitis. Although this could be postsurgical, the findings are suspicious for an infectious process and developing osteomyelitis is within the differential. 2. Small rim-enhancing intramuscular fluid collections along the medial aspect of the distal right femur which measure up to 4.5 x 1.8 cm. Again, these could be postsurgical but are suspicious for small intramuscular abscesses. 3. Hypodense peripherally enhancing focus within the distal vastus lateralis measuring 3.9 x 2.2 cm. This is suggestive of myositis with developing intramuscular abscess. 4. Moderate fascial fluid within the proximal to mid right thigh without soft tissue gas. This is nonspecific although could represent an infectious process. ACT 112: Negative or not required by law. Electronically signed by: Bigg Ha M.D. 10/31/2024 9:32 AM Medications Administered Home Medications Medication Instructions Recorded Confirmed Last Taken bismuth tribrom-petrolatum,wh 4" X #100 ea 04/18/24 04/18/24 Unknown 4" bandage (Xeroform Petrolatum Dressing) tamsulosin 0.4 mg capsule (Flomax) 0.4 mg PO HS #90 caps 04/18/24 10/28/24 10/26/24 blood-glucose sensor (Dexcom G7 #3 ea 04/30/24 Unknown Sensor device) blood-glucose,aviation safety inspector,cont #1 ea 04/30/24 Unknown (Dexcom G7 Cable Puller) thiamine HCl (vitamin B1) 100 mg 100 mg PO BID 05/07/24 10/28/24 10/27/24 08:30 tablet potassium chloride 20 mEq 20 meq PO BID #180 tabs 05/14/24 10/28/24 10/27/24 08:30 tablet,extended release(part/cryst) sertraline 50 mg tablet 50 mg PO BID #180 tabs 05/14/24 10/28/24 10/27/24 08:30 triamterene 75 1 tab PO DAILY #90 tabs 05/14/24 10/28/24 10/27/24 mg-hydrochlorothiazide 50 mg tablet insulin glargine-yfgn 100 unit/mL 20 unit (0.2 mL) subcut QAM #15 mL 06/21/24 10/28/24 10/27/24 (3 mL) subcutaneous pen (Semglee (insulin glargine-yfgn) Pen) blood sugar diagnostic (OneTouch #200 ea 09/09/24 Unknown Verio test strips) blood-glucose meter (OneTouch #1 ea 09/09/24 Unknown Verio Flex Meter) lancets 33 gauge #200 ea 09/09/24 Unknown aspirin 81 mg tablet,delayed 81 mg PO QAM #20 tabs 10/16/24 10/28/24 10/27/24 release cyanocobalamin (vitamin B-12) 500 1,000 mcg (2 x 500 mcg) PO QAM #10 10/16/24 10/28/24 10/27/24 mcg tablet tabs ferrous gluconate 324 mg (38 mg 324 mg PO BIDM #30 tabs 10/16/24 10/28/24 10/27/24 iron) tablet metoprolol tartrate 25 mg tablet 25 mg PO BID #20 tabs 10/16/24 10/28/24 10/27/24 08:30 polyethylene glycol 3350 17 gram 17 g PO DAILY #10 ea 10/16/24 10/28/24 10/27/24 oral powder packet (Miralax) tramadol 50 mg tablet 50 mg PO Q4H PRN pain #20 tabs 10/16/24 10/28/24 10/27/24 16:36 acetaminophen 325 mg tablet 650 mg PO Q6H PRN PAIN/FEVER 10/27/24 10/28/24 10/27/24 13:35 atorvastatin 20 mg tablet 20 mg PO HS 10/27/24 10/28/24 10/26/24 cyclobenzaprine 5 mg tablet 5 mg PO Q8H PRN NECK SPASMS 10/27/24 10/28/24 10/27/24 14:19 oxycodone 5 mg tablet 5 mg PO Q6H PRN Pain 10/27/24 10/28/24 10/27/24 14:18 protein supplement 1 ea PO BIDM 10/27/24 10/28/24 10/27/24 Milk of Magnesia 30 ml PO DAILY PRN Constipation 10/28/24 10/28/24 Unknown bisacodyl 10 mg rectal suppository 10 mg IA DAILY PRN Constipation 10/28/24 10/28/24 Unknown (Dulcolax (bisacodyl)) miconazole nitrate 2 % topical 1 applic topical BID 10/28/24 10/28/24 Unknown cream sodium phosphates 19 gram-7 118 ml IA DAILY PRN Constipation 10/28/24 10/28/24 Unknown gram/118 mL enema (Fleet Enema) Active Medications Generic Name Dose Route Start Last Admin Trade Name Freq PRN Reason Stop Dose Admin Aspirin 81 mg 10/29/24 09:00 10/31/24 09:14 Aspirin 81 Mg Ectab PO 11/28/24 08:59 81 mg QAM ESTEFANI Administration Atorvastatin Calcium 20 mg 10/28/24 21:00 10/30/24 20:25 Atorvastatin 20 Mg Tab PO 11/27/24 20:59 20 mg HS ESTEFANI Administration Cyanocobalamin 1,000 mcg 10/29/24 09:00 10/31/24 09:13 Cyanocobalamin (B-12) 500 Mcg Tablet PO 11/28/24 08:59 1,000 mcg QAM ESTEFANI Administration Cyclobenzaprine HCl 5 mg 10/28/24 16:00 10/29/24 09:06 Cyclobenzaprine Hcl 5 Mg Tab PO 11/27/24 15:59 5 mg Q8H PRN Administration NECK SPASMS Ferrous Gluconate 324 mg 10/28/24 17:00 10/31/24 09:13 Ferrous Gluconate 324 Mg Tab PO 11/27/24 16:59 324 mg BIDM ESTEFANI Administration Heparin Sodium (Porcine) 5,000 units 10/28/24 22:00 10/31/24 13:36 Heparin Sod 5,000 Unit/0.5 Ml Vial SQ 11/27/24 21:59 5,000 units Q8 ESTEFANI Administration Vancomycin HCl 750 mg/ Sodium 265 mls @ 200 mls/hr 10/28/24 23:00 10/31/24 13:18 Chloride IV 11/11/24 22:59 Infused Q12H ESTEFANI Infusion Sodium Chloride 1,000 mls @ 80 mls/hr 10/28/24 16:15 10/31/24 11:22 Nss IV 10/31/24 16:14 80 mls/hr .[id number] ESTEFANI Administration Acetaminophen 1,000 mg in 100 mls @ 400 mls/hr 10/29/24 03:30 10/31/24 12:17 Ofirmev IV 11/01/24 03:29 Infused Q8 ESTEFANI Infusion Insulin Aspart 0 units 10/28/24 17:15 10/31/24 12:56 Insulin Aspart Per Unit Charge SC 11/27/24 17:14 1 units ACHS ESTEFANI Administration Ketorolac Tromethamine 15 mg 10/28/24 22:38 10/31/24 12:14 Ketorolac Tromethamine 15 Mg/Ml Vial IV 11/02/24 22:37 15 mg Q6H PRN Administration Breakthrough Pain Lidocaine 1 patch 10/29/24 09:00 10/31/24 09:14 Lidocaine 5% 1 Patch TD 11/28/24 08:59 1 patch QAM ETSEFANI Administration Metoprolol Tartrate 25 mg 10/28/24 21:00 10/31/24 09:13 Metoprolol Tartrate 25 Mg Tab PO 11/27/24 20:59 25 mg BID ESTEFANI Administration Miconazole Nitrate 1 appln 10/28/24 21:00 10/31/24 09:15 Miconazole Nitrate 2% Cr 30 Gm Tube TOP 11/27/24 20:59 1 appln BID ESTEFANI Administration Miscellaneous 1 each 10/29/24 21:00 10/30/24 20:26 Remove Lidoderm Patch N/A 11/28/24 20:59 Not Given DAILY@2100 ESTEFANI Oxycodone HCl 5 mg 10/28/24 16:41 10/31/24 09:21 Oxycodone Hcl Ir 5 Mg Tab (Immediate Release) PO 11/11/24 15:59 5 mg Q6H PRN Administration Severe Pain (Scale 7, 8, 9,10) Polyethylene Glycol 17 gm 10/29/24 09:00 10/31/24 09:14 Polyethylene (Miralax) 17 Gm Pack PO 11/28/24 08:59 17 gm DAILY ESTEFANI Administration Potassium Chloride 20 meq 10/28/24 21:00 10/31/24 09:21 Potassium Chloride Crtab 20 Meq Tabcr PO 11/27/24 20:59 20 meq BID ESTEFANI Administration Sertraline HCl 50 mg 10/28/24 21:00 10/31/24 09:13 Sertraline Hcl 50 Mg Tablet PO 11/27/24 20:59 50 mg BID ESTEFANI Administration Tamsulosin HCl 0.4 mg 10/28/24 21:00 10/30/24 20:26 Tamsulosin Hcl 0.4 Mg Cap PO 11/27/24 20:59 0.4 mg HS ESTEFANI Administration Thiamine HCl 100 mg 10/28/24 21:00 10/31/24 09:14 Thiamine Hcl 100 Mg Tab PO 11/27/24 20:59 100 mg BID ESTEFANI Administration Tramadol HCl 50 mg 10/28/24 16:41 10/31/24 00:29 Tramadol Hcl 50 Mg Tablet PO 11/27/24 15:59 50 mg Q4H PRN Administration Moderate Pain (Scale 4, 5, 6) Triamterene/Hydrochlorothiazide 1 tab 10/29/24 09:00 10/31/24 09:15 Triamterene/Hctz 37.5/25mg Tab PO 11/28/24 08:59 1 tab DAILY ESTEFANI Administration
[2024-10-31] MEDS: ONDANSETRON INJ 2 MG/ML 2 ML VIAL IV PRN (18:35)
[2024-10-31] MEDS: METOPROLOL TARTRATE 1 MG/ML VIAL IV STA (18:38)
--- NOTE | 2024-10-31 18:46 | XRay Report ---
Chest radiograph, one view History: Hypoxia Comparison: 10/28/2024 Findings: Single AP view of the chest performed. There is mild perihilar opacity. No focal consolidation or pleural effusion. No pneumothorax. The cardiomediastinal silhouette is within normal limits. Indistinct pulmonary vascularity. No evidence for lymphadenopathy. No visualized bony or soft tissue abnormality. Impression: Indistinct pulmonary vasculature with mild perihilar opacity, suggesting pulmonary venous hypertension, with possible early pulmonary edema. Electronically signed by Oretga Marino 10-31-2024 6:46 PM
[2024-10-31] MEDS: VANCOMYCIN LEVEL ONE (19:17)
[2024-10-31] MEDS: LABETALOL HCL IV 5 MG/ML 20ML IV STA (20:14)
[2024-10-31] MEDS: FUROSEMIDE 40 MG/4 ML VIAL IV ONE (20:15)
--- NOTE | 2024-11-01 01:40 | CT Scan Report ---
EXAM: CT head/brain wo con CLINICAL HISTORY: AMS TECHNIQUE: Multiple axial images were obtained from the skull base to the vertex without contrast. The CT scan was performed according to ALARA (as low as reasonably achievable). COMPARISON: 19:20:41 [employer]. FINDINGS: Cerebral atrophy is present. No evidence of space-occupying lesion, hemorrhage, edema, mass effect, midline shift, extra-axial collection, or hydrocephalus is noted. The basal cisterns are symmetric and normal in size and configuration. There are scattered periventricular hypodensities, as can be seen with chronic microvascular ischemic changes. Alvarez-white matter differentiation is preserved. The visualized paranasal sinuses and left mastoid air cells are well aerated. Orbital contents are within normal limits. Bony structures are intact. Hypodense thickening in right mastoid air cells and middle ear cavity- could represent otomastoiditis.stable IMPRESSION: 1. No evidence of acute intracranial abnormality is demonstrated. 2. Chronic microvascular ischemic changes, stable. 3. Cerebral atrophy, stable. Electronically signed by Wes Chou 11-01-2024 01:40 AM
[2024-11-01 06:16] LABS: Hematocrit (blood only) 29.1 % (42.0-52.0); Hemoglobin 9.1 g/dl (14.0-18.0); Mean Corpuscular Hemoglobin 25.9 pg (25.0-34.0); Mean Corpuscular Volume 82.9 fL (80.0-100.0); Platelet Count 112 K/uL (130-400); RDW Standard Deviation 54.5 fL (36.4-46.3); Red Blood Count 3.51 M/uL (4.70-6.10); White Blood Count 5.46 K/ul (4.8-10.8)
[2024-11-01 06:39] LABS: Anion Gap 6.0 (3-11); Blood Urea Nitrogen 30.0 mg/dl (6-23); Calcium 7.8 mg/dl (8.6-10.3); Carbon Dioxide 20.0 mmol/L (21-32); Chloride 108.0 mmol/L (98-107); Creatinine Clr Calc Pharmacy 56.4 ml/min; Glucose 149.0 mg/dl (70-99(Fasting)); Potassium 3.7 mmol/L (3.5-5.1); Sodium 134.0 mmol/L (136-145)
--- NOTE | 2024-11-01 10:12 | Hospitalist Progress Note ---
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 Associated mass effect upon the thecal sac. This is suspicious for an infectious process and could represent epidural abscess or phlegmon. -MRI right femur- recommended repeat scan with contrast to r/o infective collection -pt does have decubitus ulcers, will culture for MRSA -echo showing no veg -ID consult appreciated -vancomycin continued -repeat blood cultures 10/30 + -will order CELIA to r/o veg -ortho spine consult appreciated, no surgical intervention at this time -vascular surgery consulted to follow up on post ROSALINDA stump fluid collection (2) Peripheral arterial disease with history of revascularization: Plan: -right leg AKA (3) Hyperlipidemia: Plan: -atorvastatin (4) Benign essential hypertension: Plan: -metoprolol (5) Type 2 diabetes mellitus with diabetic polyneuropathy: Plan: -pharm consult for glycemic managment -lantus Plan Heparin SQ for DVT px Admission and Anticipated Discharge Date Admission Date: October 28, 2024 Subjective Pt stating he feels increased weakness in his upper extremities. Review of Systems Review of Systems: CONST: Negative for fever, body aches and chills. HENT: Negative for neck pain/stiffness, headache, congestion, sore throat, swelling. EYES: Negative for discharge/pain or vision changes. RESP: Negative for cough/hemoptysis and shortness of breath. CV: Negative chest pain, difficulty breathing, palpitations. ABD: Negative pain, nausea, vomiting. : Negative increase frequency, dysuria, blood in urine or stool. MUSC: Negative for muscle aches, edema. SKIN: Negative rash, lesions/sores. NEURO: Negative headache, dizziness, weakness. Physical Exam Physical Exam: GENERAL APPEARANCE NAD, activity normal for age, well developed/ well nourished, no cyanosis, pallor, or diaphoresis. EYES lids/conjunctiva normal. EARS/NOSE/THROAT Mucous membranes moist, nares normal, lips/teeth normal uvula midline without oral pharyngeal erythema, exudate or swelling TMs normal bilaterally. No lymphangitis/lymphedema. HEAD/NECK normocephalic atraumatic, no facial trauma, neck is supple. RESPIRATORY respiratory effort normal, speaks in full sentences, no tripod po sition, no accessory muscle use. Lungs clear to auscultation without rhonchi, wheezes, rales CARDIAC Regular rate and rhythm, no edema. ABDOMINAL Soft, ND/NT. No evidence of fluid wave. No pulsatile masses on exam, rebound tenderness, Baxter sign or pain over Mcburney's point. MUSCLES/EXTREMITIES No abnormal range of motion, no swelling. Right AKA, stump without erythema, or edema. SKIN Warm, pink and dry. No rashes, dermatoses, petechiae or lesions. NEUROLOGICAL Speech is clear and appropriate. Normal level of consciousness. Gait and coordination are normal. 5/5 strength in all extremities. PSYCH Normal mood and affect. Judgement/competence is appropriate Results & Data Results & Data Vital Signs (Past 12 Hours) Vital Signs Temp Pulse Pulse Pulse Resp BP BP 11/01/24 07:45 11/01/24 07:22 36.5 C 88 20 166/82 H 11/01/24 03:10 37.1 C 72 16 154/74 H 10/31/24 23:11 37.2 C 94 H 18 156/83 H 10/31/24 22:47 97 H Pulse Ox O2 Del Method O2 Flow Rate 11/01/24 07:45 Nasal Cannula 2 11/01/24 07:22 92 Room Air 11/01/24 03:10 91 Room Air 10/31/24 23:11 98 Oxymask 2 10/31/24 22:47 PG Care Time/CCT Total # of Minutes Spent Total Time Spent with Patient: Total time spent is greater than 50% in coordination of care (as documented) at patient's floor/unit and/or counseling patient: Coding Level of Care Code 00833 SUB INP/OBS CARE 2MIN Diagnoses MRSA bacteremia R78.81; B95.62 Peripheral arterial disease with history of revascularization I73.9; Z98.890 Mixed hyperlipidemia E78.2 Hyperlipidemia type: mixed hyperlipidemia Benign essential hypertension I10 Type 2 diabetes mellitus with diabetic polyneuropathy, with long-term current use of insulin E11.42; Z79.4 Diabetes mellitus termite control representative insulin use: with group home use (3) Hyperlipidemia Hyperlipidemia type: mixed hyperlipidemia Qualified Code(s): E78.2 - Mixed hyperlipidemia (5) 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 mellitus group home insulin use: with termite control representative use Qualified Code(s): E11.42 - Type 2 diabetes mellitus with diabetic polyneuropathy; Z79.4 - USP (current) use of insulin
--- NOTE | 2024-11-01 13:04 | Infectious Disease Progress Nt ---
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 Wound culture grew MRSA and group B strep. He received 24 hours of daptomycin and ertapenem post OR. He was discharged on . He returned to the ED on 10/27/2024 with neck pain. Workup was negative. He was discharged. He was asked to return on 10/28/2024 for positive blood cultures (4/4 bottles positive for MRSA). He continued to complain of neck pain. On admission, he was afebrile but then developed a fever with a Tmax of 39.1 . Labs: WBC 12.83, procalcitonin 0.92, BUN 30, creatinine 0.9. Repeat blood cultures also positive for MRSA.Chest x-ray showed no acute findings. Right femur x-ray shows an [id number] amputation at the mid to distal shaft of the femur. Skin geovany remain distally. No evidence of osteomyelitis. There are mild degenerative changes of the right hip. Cervical spine CT shows no definite signs of infectious discitis or osteomyelitis of the cervical spine. There is fluid and edema in the prevertebral space. Possible etiologies include infection, postoperative changes. No clear discrete abscess noted. There is intermediate signal intensity material in the epidural space at the level of the dens to C4-5. This could be infectious or inflammatory. No discrete epidural abscess identified. Stenosis at C3 C5 with compression of the spinal cord due to disc bulge and disc herniation. No definitive cord edema. There is opacification of the right mastoids which may be due to inflammatory mastoiditis. Transthoracic echocardiogram with no valve vegetations. He was started on vancomycin and Zosyn. Infectious disease consulted for MRSA bacteremia. An E consult without video evaluation completed as video/camera is not working Microbiology 10/27/2024 blood culture 4/4 bottles MRSA vanco OLIVERIO 1 10/28/2024 blood culture 4/4 bottles MRSA 10/30/2024 blood culture 2/4 bottles MRSA 10/31/2024 buttuck wound culture ecoli 11/01/2024 blood culture in process Prior microbiology 10/08/2024 right foot wound culture MRSA, Streptococcus agalactiae (GBS) 07/29/24 right foot foot bone culture MRSA 07/29/2024 right foot wound culture MRSA 07/26 blood culture 4/4 bottles positive for MRSA 02/22/2024 right toe wound culture MSSA, Streptococcus agalactiae (GBS) Antibiotics vancomycin Zosyn Daptomycin 11/01-current Ceftaroline 11/01-current #HIGH grade MRSA Bacteremia #Abnormal cervical spine imaging with possible epidural abscess or phlegmon with stenosis #Possible myositis at R AKA site on imaging # S/p Right AKA s/p failed course of medical management with abx for osteomyelitis, 10/11/2024 #Buttock pressure wound, doesn't appear acutely infected # History pf MRSA Right foot osteomyelitis and MRSA bacteremia 07/2024 #PAD, Status post vascularization Discussion Source of MRSa bacteremia, may be the cervical spine ( ? abscess) or R AKA site Has p/w neck pain. Has ? epidural abscess or phlegmon with cervical stenosis on imagin. No OM or discitis Evaluated by ortho surgery- no plans for intervention so far, but Ortho attending will reevaluate today . Imaging of e R AKA site shows inflammatory changes with ? myositis. Cant rule out collection on imaging w/o contrast --Vasc surgery following. TTE without vegatations. Has a pressure ulcer on buttocks that does not appear acutely infected. Wound growing Ecoli- likely colonized with and skin irais. As of 10/30, he remains persistent bacteremia. He needs source control. For now will switch to salvage abx therapy with Daptomycin PLUS Ceftaroline Recommendations Follow up CELIA Dced IV vancomycin Started Daptomycin 8 mg /kg IV daily PLUS Ceftaroline 600 mg IV q12 hrs for synergy i/s/o persistent MRSA bacteremia . CK ordered Repeat BCX ordered today , If positive repeat Follow up Ortho spine re- epidural collection Follow up vasc sx re- ? myositis at AKA site. There is concern for ? developing intramuscular abscesses at site on prior imaging, consider reimaging with contrast Monitor for metastatic bacterial seeding to joints , skin, computer forensic examiner. . ID will continue to follow, but [facility] will not round or review the chart over the weekend. Call covering provider at [facility] at [phone] Lozoya will resume coverage for [facility] on Saturday 11/04. Brian Bhat MD, MPH Infectious Disease [facility], [facility] Admission and Anticipated Discharge Date Admission Date: October 28, 2024 Subjective This patient recommendation is based on a telemedicine consult request which was completed asynchronously through chart review and information provided by the primary physician. The patient was not seen or examined today. The evaluation is consultative in nature and all patient care and treatment decisions can either be accepted or rejected by the patient's primary hospital-based treating physician using their own independent medical judgment for their patient. Time Spent Reviewing Chart: 21 - 30 minutes He remains bacteremic - Buttock wound c growing ECOli , but doesn't appear actively infected No plans for surgical intervention per ortho CELIA ordered Results & Data Vital Signs (Past 12 Hours) Vital Signs Temp Pulse Pulse Resp BP BP Pulse Ox 11/01/24 11:24 37.0 C 89 24 162/82 H 92 11/01/24 07:45 11/01/24 07:22 36.5 C 88 20 166/82 H 92 11/01/24 03:10 37.1 C 72 16 154/74 H 91 O2 Del Method O2 Flow Rate 11/01/24 11:24 Nasal Cannula 2 11/01/24 07:45 Nasal Cannula 2 11/01/24 07:22 Room Air 11/01/24 03:10 Room Air Laboratory Results Laboratory Results - last 48 hr 10/30/24 10/30/24 10/30/24 17:17 19:57 20:00 WBC RBC Hgb Hct MCV MCH MCHC RDW Std Deviation RDW Coeff of Neftali Plt Count MPV Sodium Potassium Chloride Carbon Dioxide Anion Gap BUN Creatinine Est Cr Clr Drug Dosing eGFR BUN/Creatinine Ratio Glucose POC Glucose 86 65 L* 66 L* Calcium Random Vancomycin 10/30/24 10/31/24 10/31/24 20:22 06:23 08:00 WBC 5.38 RBC 3.71 L Hgb 9.9 L Hct 30.8 L MCV 83.0 MCH 26.7 MCHC 32.1 RDW Std Deviation 54.1 H RDW Coeff of Neftali 17.5 H Plt Count 118 L MPV 10.0 Sodium 134 L Potassium 3.8 Chloride 108 H Carbon Dioxide 20 L Anion Gap 6 BUN 30 H Creatinine 0.88 Est Cr Clr Drug Dosing 69.1 eGFR 88.01 BUN/Creatinine Ratio 34.1 H Glucose 99 POC Glucose 86 111 H Calcium 7.6 L Random Vancomycin 10/31/24 10/31/24 10/31/24 10:23 12:18 17:05 WBC RBC Hgb Hct MCV MCH MCHC RDW Std Deviation RDW Coeff of Neftali Plt Count MPV Sodium Potassium Chloride Carbon Dioxide Anion Gap BUN Creatinine Est Cr Clr Drug Dosing eGFR BUN/Creatinine Ratio Glucose POC Glucose 150 H 116 H Calcium Random Vancomycin 16.2 10/31/24 11/01/24 11/01/24 20:09 05:46 07:56 WBC 5.46 RBC 3.51 L Hgb 9.1 L Hct 29.1 L MCV 82.9 MCH 25.9 MCHC 31.3 L RDW Std Deviation 54.5 H RDW Coeff of Neftali 17.9 H Plt Count 112 L MPV 10.1 Sodium 134 L Potassium 3.7 Chloride 108 H Carbon Dioxide 20 L Anion Gap 6 BUN 30 H Creatinine 1.08 Est Cr Clr Drug Dosing 56.4 eGFR 70.24 BUN/Creatinine Ratio 27.8 H Glucose 149 H POC Glucose 154 H 148 H Calcium 7.8 L Random Vancomycin 11/01/24 11:51 WBC RBC Hgb Hct MCV MCH MCHC RDW Std Deviation RDW Coeff of Neftali Plt Count MPV Sodium Potassium Chloride Carbon Dioxide Anion Gap BUN Creatinine Est Cr Clr Drug Dosing eGFR BUN/Creatinine Ratio Glucose POC Glucose 167 H Calcium Random Vancomycin Microbiology 10/31/24 17:00 Buttock Gram Stain - Final 10/31/24 17:00 Buttock Wound Culture - Preliminary Escherichia coli 10/30/24 06:55 Blood Aerobic Blood Culture - Preliminary Staph aureus MRSA 10/30/24 06:55 Blood Anaerobic Blood Culture - Preliminary No growth in Anaerobic bottle after 48 hours. 10/30/24 07:02 Blood Aerobic Blood Culture - Preliminary Staphylococcus aureus 10/30/24 07:02 Blood Anaerobic Blood Culture - Preliminary No growth in Anaerobic bottle after 48 hours. 10/28/24 13:03 Blood Aerobic Blood Culture - Final Staph aureus MRSA 10/28/24 13:03 Blood Anaerobic Blood Culture - Final Staph aureus MRSA 10/28/24 13:01 Blood Aerobic Blood Culture - Final Staph aureus MRSA 10/28/24 13:01 Blood Anaerobic Blood Culture - Final Staph aureus MRSA Diagnostic Findings Femur MRI 10/28/24 16:11 CLINICAL HISTORY: Positive blood cultures above the knee amputation right leg skin geovany remain, scanned on 1.5T normal mode, geovany wanded nonferrous best scans possible due to pt motion, ran propeller sequences rule out sepsis, infection post surgery limited study. COMPARISON: None provided. TECHNIQUE: MRI Right femur on 1.5 T [facility] Current included T1W SE axial/coronal/sagittal, T2W sagittal and T2 TIRM axial/coronal acquisitions with multiplanar reformatted images for interrogation on the PACS workstation. Contrast dose: Non contrast exam. FINDINGS: Limitation: Inevitable motion artifacts seen in femur and soft tissues obscuring fine details significantly limiting the sensitivity of the examination. Muscles and tendons: Marked soft tissue edema and inflammatory changes seen involving anterior compartment of thigh and gluteal musculature on right returning hyperintense signal on T2W and PDFS images suggesting myositis due to inflammatory changes. The rest of the muscles and tendons of the extensors, flexors, adductors, abductors, rotators and hamstring groups appear unremarkable. Bones: Right femur is partly seen, distal part is not well visualized likely resected. Please correlate clinically. Ligaments: Normal ligaments seen. Subcutaneous soft tissue: Extensive soft tissue inflammatory changes seen in right anterolateral aspect of right thigh. Neurovascular bundle: Grossly unremarkable. Joint fluid/ bursae: The visualized hip joint appear unremarkable. No iliopsoas or subtrochanteric bursal effusion seen. No focal fluid collection or soft tissue mass noted. IMPRESSION: Limitation: Inevitable motion artifacts seen in the femur and soft tissues obscuring fine details significantly limiting the sensitivity of the examination. 1. Right femur is partly seen, distal part is not well visualized likely resected. Please correlate clinically. 2. Marked soft tissue edema and inflammatory changes seen involving anterior compartment of right thigh and gluteal musculature suggesting myositis due to inflammatory changes. 3. Extensive soft tissue inflammatory changes seen in right anterolateral aspect of right thigh. 4. Would recommend repeat scan with contrast enhanced to rule out infective collection. Electronically signed by Jassi Cadr 10-30-2024 12:[address] 10/30/24 11:[address] WITH CONTRAST CLINICAL HISTORY: Evaluate for infection. COMPARISON STUDY: Cervical spine CT October 27, 2024 and MRI of the cervical spine October 28, 2024. TECHNIQUE: Axial images of the cervical spine were obtained following intravenous injection of 94 cc of Optiray 320 IV. Sagittal and coronal reformats were viewed. A dose lowering technique was utilized adhering to the principles of ALARA. FINDINGS: This exam is mildly compromised given difficulty positioning. Reversal the cervical lordosis is unchanged. There are no cervical spine fractures. There are no suspicious osseous lesions. No areas of bony erosion are identified. Sensitivity for detection of discitis is significantly diminished given CT technique but there is no evidence for discitis. Moderate prevertebral edema is again noted. This is shown on MRI October 28, 2024. The posterior upper cervical spine paraspinous soft tissue edema on MRI is not well depicted by CT. Of note, there is enhancing/hyperdense material within the anterior epidural space at the C2-C4 levels, as shown on MRI. This appears to have mass effect upon the thecal sac, suboptimally assessed by CT. Moderate multilevel disc space narrowing and endplate osteophytosis is present. There is severe facet arthrosis. IMPRESSION: 1. Moderate prevertebral edema, as shown on MRI October 30, 2024. This is nonspecific but given the clinical history suspicious for an infectious process. 2. Enhancing/hyperdense material within the anterior epidural space at the C2-C4 levels, as shown on MRI of October 30, 2024. Associated mass effect upon the thecal sac. This is suspicious for an infectious process and could represent epidural abscess or phlegmon. A pre and postcontrast MRI of the cervical spine is recommended to exclude abscess. Spine surgical consultation might also be considered. This finding will be called/faxed to the ordering provider at time of dictation. 3. No CT evidence for discitis or osteomyelitis. 4. No cervical spine fractures. 5. Severe multilevel facet arthrosis and moderate degenerative disc disease within the cervical spine. ACT 112: Negative or not required by law. Electronically signed by: Bigg Ha M.D. 10/30/2024 1:[address] 10/31/24 07:[address] WITH CONTRAST CLINICAL HISTORY: r/o infectious collection. Status post right [id number] amputation October 11, 2024. COMPARISON STUDY: Right femur radiographs and right femur MRI October 28, 2024. TECHNIQUE: Axial images of the right femur and thigh were obtained following intravenous injection of 94 cc of Optiray 320 IV. Sagittal and coronal reformats were viewed. A dose lowering technique was utilized adhering to the principles of ALARA. FINDINGS: There are postoperative findings consistent with right above knee amputation. No clear bony destruction is present. However, periosteal hyperdensity along the resection margin of the the right femur suggests periostitis. There is an associated 1.9 cm peripherally enhancing focus along the medial aspect of the distal remaining right femur. There is an adjacent rim enhancing fluid collection within the distal remaining portion of fast this media [place] which measures 4.5 x 1.8 cm. There is no soft tissue gas. There is also a hypodense peripherally enhancing focus within the distal vastus lateralis on image 550 which measures 3.9 x 2.2 cm. Of note, there is edema within remaining portions of vastus lateralis and medialis as well as vastus intermedius. There is moderate fascial fluid within the mid right thigh. There is no soft tissue gas. There are no fractures. IMPRESSION: 1. Status post right above-knee amputation. No clear bony destruction. However, periosteal hyperdensity along the resection margin of the right femur suggests periostitis. Although this could be postsurgical, the findings are suspicious for an infectious process and developing osteomyelitis is within the differential. 2. Small rim-enhancing intramuscular fluid collections along the medial aspect of the distal right femur which measure up to 4.5 x 1.8 cm. Again, these could be postsurgical but are suspicious for small intramuscular abscesses. 3. Hypodense peripherally enhancing focus within the distal vastus lateralis measuring 3.9 x 2.2 cm. This is suggestive of myositis with developing intramuscular abscess. 4. Moderate fascial fluid within the proximal to mid right thigh without soft tissue gas. This is nonspecific although could represent an infectious process. ACT 112: Negative or not required by law. Electronically signed by: Bigg Ha M.D. 10/31/2024 9:32 AM Chest X-Ray 10/31/24 18:01 Chest radiograph, one view History: Hypoxia Comparison: 10/28/2024 Findings: Single AP view of the chest performed. There is mild perihilar opacity. No focal consolidation or pleural effusion. No pneumothorax. The cardiomediastinal silhouette is within normal limits. Indistinct pulmonary vascularity. No evidence for lymphadenopathy. No visualized bony or soft tissue abnormality. Impression: Indistinct pulmonary vasculature with mild perihilar opacity, suggesting pulmonary venous hypertension, with possible early pulmonary edema. Electronically signed by Ortega Marino 10-31-2024 6:[address] 10/31/24 18:03 EXAM: CT head/brain wo con CLINICAL HISTORY: AMS TECHNIQUE: Multiple axial images were obtained from the skull base to the vertex without contrast. The CT scan was performed according to ALARA (as low as reasonably achievable). COMPARISON: 19:20:41 ENGINE CLEANER. FINDINGS: Cerebral atrophy is present. No evidence of space-occupying lesion, hemorrhage, edema, mass effect, midline shift, extra-axial collection, or hydrocephalus is noted. The basal cisterns are symmetric and normal in size and configuration. There are scattered periventricular hypodensities, as can be seen with chronic microvascular ischemic changes. Alvarez-white matter differentiation is preserved. The visualized paranasal sinuses and left mastoid air cells are well aerated. Orbital contents are within normal limits. Bony structures are intact. Hypodense thickening in right mastoid air cells and middle ear cavity- could represent otomastoiditis.stable IMPRESSION: 1. No evidence of acute intracranial abnormality is demonstrated. 2. Chronic microvascular ischemic changes, stable. 3. Cerebral atrophy, stable. Electronically signed by Wes Chou 11-01-2024 01:40 AM Medications Administered Home Medications Medication Instructions Recorded Confirmed Last Taken bismuth tribrom-petrolatum,wh 4" X #100 ea 04/18/24 04/18/24 Unknown 4" bandage (Xeroform Petrolatum Dressing) tamsulosin 0.4 mg capsule (Flomax) 0.4 mg PO HS #90 caps 04/18/24 10/28/24 10/26/24 blood-glucose sensor (Dexcom G7 #3 ea 04/30/24 Unknown Sensor device) blood-glucose,dough machine operator,cont #1 ea 04/30/24 Unknown (Dexcom G7 Driver Trainer) thiamine HCl (vitamin B1) 100 mg 100 mg PO BID 05/07/24 10/28/24 10/27/24 08:30 tablet potassium chloride 20 mEq 20 meq PO BID #180 tabs 05/14/24 10/28/24 10/27/24 08:30 tablet,extended release(part/cryst) sertraline 50 mg tablet 50 mg PO BID #180 tabs 05/14/24 10/28/24 10/27/24 08:30 triamterene 75 1 tab PO DAILY #90 tabs 05/14/24 10/28/24 10/27/24 mg-hydrochlorothiazide 50 mg tablet insulin glargine-yfgn 100 unit/mL 20 unit (0.2 mL) subcut QAM #15 mL 06/21/24 10/28/24 10/27/24 (3 mL) subcutaneous pen (Semglee (insulin glargine-yfgn) Pen) blood sugar diagnostic (OneTouch #200 ea 09/09/24 Unknown Verio test strips) blood-glucose meter (OneTouch #1 ea 09/09/24 Unknown Verio Flex Meter) lancets 33 gauge #200 ea 09/09/24 Unknown aspirin 81 mg tablet,delayed 81 mg PO QAM #20 tabs 10/16/24 10/28/24 10/27/24 release cyanocobalamin (vitamin B-12) 500 1,000 mcg (2 x 500 mcg) PO QAM #10 10/16/24 10/28/24 10/27/24 mcg tablet tabs ferrous gluconate 324 mg (38 mg 324 mg PO BIDM #30 tabs 10/16/24 10/28/24 10/27/24 iron) tablet metoprolol tartrate 25 mg tablet 25 mg PO BID #20 tabs 10/16/24 10/28/24 10/27/24 08:30 polyethylene glycol 3350 17 gram 17 g PO DAILY #10 ea 10/16/24 10/28/24 10/27/24 oral powder packet (Miralax) tramadol 50 mg tablet 50 mg PO Q4H PRN pain #20 tabs 10/16/24 10/28/24 10/27/24 16:36 acetaminophen 325 mg tablet 650 mg PO Q6H PRN PAIN/FEVER 10/27/24 10/28/24 10/27/24 13:35 atorvastatin 20 mg tablet 20 mg PO HS 10/27/24 10/28/24 10/26/24 cyclobenzaprine 5 mg tablet 5 mg PO Q8H PRN NECK SPASMS 10/27/24 10/28/24 10/27/24 14:19 oxycodone 5 mg tablet 5 mg PO Q6H PRN Pain 10/27/24 10/28/24 10/27/24 14:18 protein supplement 1 ea PO BIDM 10/27/24 10/28/24 10/27/24 Milk of Magnesia 30 ml PO DAILY PRN Constipation 10/28/24 10/28/24 Unknown bisacodyl 10 mg rectal suppository 10 mg MA DAILY PRN Constipation 10/28/24 10/28/24 Unknown (Dulcolax (bisacodyl)) miconazole nitrate 2 % topical 1 applic topical BID 10/28/24 10/28/24 Unknown cream sodium phosphates 19 gram-7 118 ml MA DAILY PRN Constipation 10/28/24 10/28/24 Unknown gram/118 mL enema (Fleet Enema) Active Medications Generic Name Dose Route Start Last Admin Trade Name Freq PRN Reason Stop Dose Admin Aspirin 81 mg 10/29/24 09:00 11/01/24 09:00 Aspirin 81 Mg Ectab PO 11/28/24 08:59 81 mg QAM ESTEFANI Administration Atorvastatin Calcium 20 mg 10/28/24 21:00 10/31/24 20:28 Atorvastatin 20 Mg Tab PO 11/27/24 20:59 20 mg HS ESTEFANI Administration Cyanocobalamin 1,000 mcg 10/29/24 09:00 11/01/24 09:01 Cyanocobalamin (B-12) 500 Mcg Tablet PO 11/28/24 08:59 1,000 mcg QAM ESTEFANI Administration Cyclobenzaprine HCl 5 mg 10/28/24 16:00 10/29/24 09:06 Cyclobenzaprine Hcl 5 Mg Tab PO 11/27/24 15:59 5 mg Q8H PRN Administration NECK SPASMS Ferrous Gluconate 324 mg 10/28/24 17:00 11/01/24 08:59 Ferrous Gluconate 324 Mg Tab PO 11/27/24 16:59 324 mg BIDM ESTEFANI Administration Heparin Sodium (Porcine) 5,000 units 10/28/24 22:00 11/01/24 05:02 Heparin Sod 5,000 Unit/0.5 Ml Vial SQ 11/27/24 21:59 5,000 units Q8 ESTEFANI Administration Hydralazine HCl 10 mg 10/31/24 18:01 10/31/24 18:09 Hydralazine Hcl 20 Mg/Ml Vial IV 11/30/24 18:00 10 mg Q8 PRN Administration sbp>185 or dbp>95 Vancomycin HCl 750 mg/ Sodium 265 mls @ 200 mls/hr 10/28/24 23:00 11/01/24 12:51 Chloride IV 11/11/24 22:59 Infused Q12H ESTEFANI Infusion Insulin Aspart 0 units 10/28/24 17:15 11/01/24 12:34 Insulin Aspart Per Unit Charge SC 11/27/24 17:14 1 units ACHS ESTEFANI Administration Ketorolac Tromethamine 15 mg 10/28/24 22:38 11/01/24 04:57 Ketorolac Tromethamine 15 Mg/Ml Vial IV 11/02/24 22:37 15 mg Q6H PRN Administration Breakthrough Pain Lidocaine 1 patch 10/29/24 09:00 11/01/24 09:01 Lidocaine 5% 1 Patch TD 11/28/24 08:59 1 patch QAM ESTEFANI Administration Metoprolol Tartrate 25 mg 10/28/24 21:00 11/01/24 09:02 Metoprolol Tartrate 25 Mg Tab PO 11/27/24 20:59 25 mg BID ESTEFANI Administration Miconazole Nitrate 1 appln 10/28/24 21:00 11/01/24 09:35 Miconazole Nitrate 2% Cr 30 Gm Tube TOP 11/27/24 20:59 1 appln BID ESTEFANI Administration Miscellaneous 1 each 10/29/24 21:00 10/31/24 20:26 Remove Lidoderm Patch N/A 11/28/24 20:59 1 each DAILY@2100 ESTEFANI Administration Ondansetron HCl 4 mg 10/28/24 16:02 10/31/24 18:35 Ondansetron Inj 2 Mg/Ml 2 Ml Vial IV 11/27/24 16:01 4 mg Q6H PRN Administration Nausea Oxycodone HCl 5 mg 10/28/24 16:41 11/01/24 02:33 Oxycodone Hcl Ir 5 Mg Tab (Immediate Release) PO 11/11/24 15:59 5 mg Q6H PRN Administration Severe Pain (Scale 7, 8, 9,10) Polyethylene Glycol 17 gm 10/29/24 09:00 11/01/24 09:03 Polyethylene (Miralax) 17 Gm Pack PO 11/28/24 08:59 Not Given DAILY ESTEFANI Potassium Chloride 20 meq 10/28/24 21:00 11/01/24 09:07 Potassium Chloride Crtab 20 Meq Tabcr PO 11/27/24 20:59 20 meq BID ESTEFANI Administration Sertraline HCl 50 mg 10/28/24 21:00 11/01/24 09:03 Sertraline Hcl 50 Mg Tablet PO 11/27/24 20:59 50 mg BID ESTEFANI Administration Tamsulosin HCl 0.4 mg 10/28/24 21:00 10/31/24 20:28 Tamsulosin Hcl 0.4 Mg Cap PO 11/27/24 20:59 0.4 mg HS ESTEFANI Administration Thiamine HCl 100 mg 10/28/24 21:00 11/01/24 09:04 Thiamine Hcl 100 Mg Tab PO 11/27/24 20:59 100 mg BID ESTEFANI Administration Tramadol HCl 50 mg 10/28/24 16:41 11/01/24 07:26 Tramadol Hcl 50 Mg Tablet PO 11/27/24 15:59 50 mg Q4H PRN Administration Moderate Pain (Scale 4, 5, 6) Triamterene/Hydrochlorothiazide 1 tab 10/29/24 09:00 11/01/24 09:06 Triamterene/Hctz 37.5/25mg Tab PO 11/28/24 08:59 1 tab DAILY ESTEFANI Administration
--- NOTE | 2024-11-01 13:09 | Orthopedic Progress Note ---
Date of Service November 01, 2024 Assessment & Plan (1) Neck pain: Plan: Assessment severe cervical spinal stenosis. Plan at this time patient does have pre-existing severe cervical spondylosis with canal compromise. In addition to this he now has fluid collection extending from C2-C4 surrounding the cord contributing to canal compromise. He has an active infection in the right lower extremity. He is neurologically unstable at this point. Any surgical invention be quite extensive in nature and placing him at extreme risk for worsening neurologic outcome and failed fusion in light of his active infections. If he continues to decline we will need to strongly consider tertiary care placement for their guidance in this very challenging situation. Admission and Anticipated Discharge Date Admission Date: October 28, 2024 Subjective Patient is complaining of the cervical thoracic pain. More recently he is noting weakness affecting mostly the left upper extremity. He feels this is a change from his status of 2 days ago. Physical Exam Physical Exam: On exam he is somewhat cooperative. He has reasonable grasp of the range of motion of the right upper extremity.. Left is a 3/5 at best. Sensory appears to be intact. He has reasonable plantarflexion dorsiflexion to the left lower extremity. His right lower extremity is amputated. Results & Data Vital Signs (Past 12 Hours) Vital Signs Temp Pulse Pulse Resp BP BP Pulse Ox 11/01/24 11:24 37.0 C 89 24 162/82 H 92 11/01/24 07:45 11/01/24 07:22 36.5 C 88 20 166/82 H 92 11/01/24 03:10 37.1 C 72 16 154/74 H 91 O2 Del Method O2 Flow Rate 11/01/24 11:24 Nasal Cannula 2 11/01/24 07:45 Nasal Cannula 2 11/01/24 07:22 Room Air 11/01/24 03:10 Room Air
--- NOTE | 2024-11-01 14:07 | Pharmacy Report ---
Pharmacy Glycemic Short Note 2 - Date of Service November 01, 2024 - Glycemic Short BSG Results (Last 24 hours): 10/31/24 10/31/24 11/01/24 17:05 20:09 05:46 Glucose 149 H POC Glucose 116 H 154 H 11/01/24 11/01/24 07:56 11:51 Glucose POC Glucose 148 H 167 H OUTPATIENT ANTIDIABETIC REGIMEN: * Semglee (insulin glargine) 20 units SQ QAM * HbA1c: 7.3% (07/28/2024) ASSESSMENT: 11/01: * Osmin has required very minimal insulin since he was admitted. He only required 3 units of insulin yesterday and they were all bolus. BSGs were [phone]/dL. * Fasting BSG was in the goal range this morning. Will not add basal insulin at this time. Carb ratio was loosened yesterday. This bolus insulin regimen will be continued without change today. 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 * Blood glucose ranging from 110-170s * Given lower fasting glucose value of 99 this AM, holding glargine in the AM for now * Continue sliding scale glargine in the evening * Patient only eating 25% of breakfast as charted which could be contributing to lower glucose values * Vanc for MRSA bacteremia/potential osteomyelitis PLAN FOR INPATIENT GLYCEMIC CONTROL: * Basal insulin * None * Bolus insulin * NovoLog per scale ACHS or Q6hrs while NPO * Goal Range: Low 110 mg/dL - High 140 mg/dL * Correction Factor: 30 mg/dL/unit * Nutritional / Prandial insulin per carb ratio of 1 unit per 15 grams CHO consumed
--- NOTE | 2024-11-01 16:18 | Electrocardiogram Report ---
Test Reason : Blood Pressure : */* mmHG Vent. Rate : 105 BPM Atrial Rate : 105 BPM P-R Int : 146 ms QRS Dur : 104 ms QT Int : 362 ms P-R-T Axes : 19 46 -40 degrees QTcB Int : 478 ms Sinus tachycardia Possible Inferior infarct (cited on or before 04-Mar-2024) Abnormal ECG When compared with ECG of 07-Oct-2024 15:18, Vent. rate has increased by 35 bpm Confirmed by Basim Humphries ([id number]) on 11/01/2024 4:18:30 PM Referred By: REFERRED SELF Confirmed By: Basim Humphries
[2024-11-01] MEDS: CEFTAROLINE FOSAMIL ACETATE 600 MG in SODIUM CHLORIDE 0.9% 250 ML IV SCH (20:13)
[2024-11-01] MEDS: BENZOCAINE/TETRACAIN/BUTAM 50 APPLN/5 GM CAN EXT ONE (20:25)
[2024-11-01] MEDS: DAPTOmycin 850 MG in SYRINGE 0 ML IV SCH (22:08)
--- NOTE | 2024-11-02 06:21 | Electrocardiogram Report ---
Test Reason : Blood Pressure : */* mmHG Vent. Rate : 121 BPM Atrial Rate : 121 BPM P-R Int : 140 ms QRS Dur : 104 ms QT Int : 334 ms P-R-T Axes : 37 55 9 degrees QTcB Int : 474 ms Sinus tachycardia Cannot rule out Inferior infarct (cited on or before 04-Mar-2024) Abnormal ECG When compared with ECG of 28-Oct-2024 13:19, (unconfirmed) No significant change was found Confirmed by Basim Humphries ([id number]) on 11/02/2024 6:21:29 AM Referred By: REFERRED SELF Confirmed By: Basim Humphries
[2024-11-02] MEDS: METOPROLOL TARTRATE 50 MG TAB PO SCH (08:57)
--- NOTE | 2024-11-02 09:53 | Hospitalist Progress Note ---
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 Associated mass effect upon the thecal sac. This is suspicious for an infectious process and could represent epidural abscess or phlegmon. -MRI right femur- recommended repeat scan with contrast to r/o infective collection -pt does have decubitus ulcers, will culture for MRSA -echo showing no veg -ID consult appreciated -vancomycin continued -repeat blood cultures 10/30 + -CELIA to r/o veg pending -ortho spine consult appreciated, surgical intervention very high risk with very poor prognosis of recovery. -recommended waiting 48hrs prior to making decison on benefit of transfer to tertiary care facility vs pallative care -repeat CT c-spine with contrast ordered -vascular surgery consulted to follow up on post ROSALINDA stump fluid collection (2) Peripheral arterial disease with history of revascularization: Plan: -right leg AKA (3) Hyperlipidemia: Plan: -atorvastatin (4) Benign essential hypertension: Plan: -metoprolol (5) Type 2 diabetes mellitus with diabetic polyneuropathy: Plan: -pharm consult for glycemic managment -lantus Plan Heparin SQ for DVT px Admission and Anticipated Discharge Date Admission Date: October 28, 2024 Subjective Pt noted to have b/l petechia on upper extremities, appears sluggish. Review of Systems Review of Systems: CONST: Negative for fever, body aches and chills. HENT: Negative for neck pain/stiffness, headache, congestion, sore throat, swelling. EYES: Negative for discharge/pain or vision changes. RESP: Negative for cough/hemoptysis and shortness of breath. CV: Negative chest pain, difficulty breathing, palpitations. ABD: Negative pain, nausea, vomiting. : Negative increase frequency, dysuria, blood in urine or stool. MUSC: Negative for muscle aches, edema. SKIN: Negative rash, lesions/sores. NEURO: Negative headache, dizziness, weakness. Physical Exam Physical Exam: GENERAL APPEARANCE NAD, activity normal for age, well developed/ well nourished, no cyanosis, pallor, or diaphoresis. EYES lids/conjunctiva normal. EARS/NOSE/THROAT Mucous membranes moist, nares normal, lips/teeth normal uvula midline without oral pharyngeal erythema, exudate or swelling TMs normal bilaterally. No lymphangitis/lymphedema. HEAD/NECK normocephalic atraumatic, no facial trauma, neck is supple. RESPIRATORY respiratory effort normal, speaks in full sentences, no tripod posi tion, no accessory muscle use. Lungs clear to auscultation without rhonchi, wheezes, rales CARDIAC Regular rate and rhythm, no edema. ABDOMINAL Soft, ND/NT. No evidence of fluid wave. No pulsatile masses on exam, rebound tenderness, Baxter sign or pain over Mcburney's point. MUSCLES/EXTREMITIES No abnormal range of motion, no swelling. Right AKA, stump without erythema, or edema. SKIN Warm, pink and dry. No rashes, dermatoses, + b/l upper exts petechiae NEUROLOGICAL Speech is clear and appropriate. Normal level of consciousness. Gait and coordination are normal. 5/5 strength in all extremities. PSYCH Normal mood and affect. Judgement/competence is appropriate Results & Data Results & Data Vital Signs (Past 12 Hours) Vital Signs Temp Pulse Pulse Pulse Resp BP Pulse Ox 11/02/24 09:00 113 H 171/96 H 11/02/24 08:00 11/02/24 07:16 37.0 C 113 H 22 191/107 H 95 11/02/24 04:10 36.8 C 94 H 18 174/91 H 94 11/01/24 22:02 69 O2 Del Method O2 Flow Rate 11/02/24 09:00 11/02/24 08:00 Nasal Cannula 2 11/02/24 07:16 Nasal Cannula 2 11/02/24 04:10 Nasal Cannula 2.0 11/01/24 22:02 PG Care Time/CCT Total # of Minutes Spent Total Time Spent with Patient: Total time spent is greater than 50% in coordination of care (as documented) at patient's floor/unit and/or counseling patient: Coding Level of Care Code 53727 SUB INP/OBS CARE 2/35MIN Diagnoses MRSA bacteremia R78.81; B95.62 Peripheral arterial disease with history of revascularization I73.9; Z98.890 Mixed hyperlipidemia E78.2 Hyperlipidemia type: mixed hyperlipidemia Benign essential hypertension I10 Type 2 diabetes mellitus with diabetic polyneuropathy, with long-term current use of insulin E11.42; Z79.4 Diabetes mellitus long term care administrator insulin use: with care home use (3) Hyperlipidemia Hyperlipidemia type: mixed hyperlipidemia Qualified Code(s): E78.2 - Mixed hyperlipidemia (5) 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 mellitus long term care administrator insulin use: with care home use Qualified Code(s): E11.42 - Type 2 diabetes mellitus with diabetic polyneuropathy; Z79.4 - 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
--- NOTE | 2024-11-02 11:20 | CT Scan Report ---
Clinical history: Infection Technique: Axial computed tomography images were obtained of the cervical spine without intravenous contrast. Sagittal and coronal reconstructions were obtained Comparison is made with the prior CT dated 10/30/2024 Findings: Again seen is prevertebral soft tissue swelling. There has been suspected interval decrease in soft tissue attenuation material in the anterior prevertebral space in the upper cervical spine No fracture is identified. No listhesis is seen. No focal osseous lesion is evident. There is atlantoaxial osteoarthritis At C2-3, there is mild spinal stenosis due to a disc bulge and a central disc protrusion. There is mild right neural foramen narrowing At C3-4, there is spinal stenosis due to a disc bulge and a left paracentral disc osteophyte protrusion. There is bilateral neural foramen narrowing that may affect the exiting C4 nerve roots At C4-5, there is mild spinal stenosis due to a disc bulge and a central disc protrusion. There is left greater than right neural foramen narrowing that may affect the left C5 nerve root At C5-6, there is spinal stenosis due to a disc bulge and a left paracentral disc osteophyte protrusion. There is bilateral neural foramen narrowing that may affect the exiting C6 nerve roots At C6-7, there is a disc bulge without spinal stenosis. There is right neural foramen narrowing that may affect the right C7 nerve root At C7-T1, there is a disc bulge without spinal stenosis. The neural foramen are patent There are new groundglass infiltrates in the visualized right upper lobe. The visualized soft tissues of the neck appear unremarkable. No foreign body is seen There is unchanged mastoid air cell opacification Impression: 1. Suspected partial resolution of soft tissue attenuation material in the anterior epidural space in the upper cervical spine that could represent improving inflammatory/infectious tissue. MRI with and without contrast could better evaluate 2. Spinal stenosis from C2-3 through C5-6 3. Bilateral C3-4, left C4-5, bilateral C5-6, and right C6-7 neural foramen narrowing. This may affect the exiting nerve roots 4. New right upper lobe groundglass infiltrate, concerning for pneumonia 5. Unchanged mastoid air cell opacification, concerning for inflammatory mastoiditis ACT 112: Positive. There are findings on this exam that require communication between the performing entity and the patient following Patient Test Result Information Act ([place] ACT 112) guidelines. Electronically signed by Tevin Mtz 11-02-2024 11:20 AM
[2024-11-03 08:16] LABS: Hematocrit (blood only) 30.0 % (42.0-52.0); Hemoglobin 9.5 g/dl (14.0-18.0); Mean Corpuscular Hemoglobin 25.8 pg (25.0-34.0); Mean Corpuscular Volume 81.5 fL (80.0-100.0); Platelet Count 130 K/uL (130-400); RDW Standard Deviation 55.2 fL (36.4-46.3); Red Blood Count 3.68 M/uL (4.70-6.10); White Blood Count 6.72 K/ul (4.8-10.8)
[2024-11-03 08:33] LABS: Anion Gap 7.0 (3-11); Blood Urea Nitrogen 40.0 mg/dl (6-23); Calcium 8.3 mg/dl (8.6-10.3); Carbon Dioxide 20.0 mmol/L (21-32); Chloride 109.0 mmol/L (98-107); Creatinine Clr Calc Pharmacy 50.3 ml/min; Glucose 168.0 mg/dl (70-99(Fasting)); Potassium 4.4 mmol/L (3.5-5.1); Sodium 136.0 mmol/L (136-145)
[2024-11-03] MEDS: LANTUS PER UNIT CHARGE SC SCH (08:47)
--- NOTE | 2024-11-03 10:30 | Hospitalist Progress Note ---
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 Associated mass effect upon the thecal sac. This is suspicious for an infectious process and could represent epidural abscess or phlegmon. -MRI right femur- recommended repeat scan with contrast to r/o infective co llection -pt does have decubitus ulcers, will culture for MRSA -echo showing no veg -ID consult appreciated -vancomycin continued -vascular surgery consulted to follow up on post ROSALINDA stump fluid collection -repeat blood cultures 11/01+ for MRSA -CELIA to r/o veg scheduled for 11/04 -ortho spine consult appreciated, surgical intervention very high risk with very poor prognosis of recovery. -recommended waiting 48hrs prior to making decision on benefit of transfer to tertiary care facility vs pallative care -repeat CT c-spine showing Suspected partial resolution of soft tissue attenuation material in the anterior epidural space in the upper cervical spine that could represent improving inflammatory/infectious tissue. MRI with and without contrast could better evaluate -Will order 11/03 MRI with and without contrast to assess if any improvement from abx to help clarify decision for family -Spoke with son, he is in agreement on not wanting to move forward with surgery, and con't abx with pallative care consulted (2) Peripheral arterial disease with history of revascularization: Plan: -right leg AKA (3) Hyperlipidemia: Plan: -atorvastatin (4) Benign essential hypertension: Plan: -metoprolol (5) Type 2 diabetes mellitus with diabetic polyneuropathy: Plan: -pharm consult for glycemic managment -lantus Plan Heparin SQ for DVT px Admission and Anticipated Discharge Date Admission Date: October 28, 2024 Subjective Pt noted to have b/l petechia on upper extremities, unable to move both upper ext, minimal movement in fingers. Still eating diet, but appears confused. Review of Systems Review of Systems: CONST: Negative for fever, body aches and chills. HENT: Negative for neck pain/stiffness, headache, congestion, sore throat, swelling. EYES: Negative for discharge/pain or vision changes. RESP: Negative for cough/hemoptysis and shortness of breath. CV: Negative chest pain, difficulty breathing, palpitations. ABD: Negative pain, nausea, vomiting. : Negative increase frequency, dysuria, blood in urine or stool. MUSC: Negative for muscle aches, edema. SKIN: Negative rash, lesions/sores. NEURO: Negative headache, dizziness, weakness. Physical Exam Physical Exam: GENERAL APPEARANCE NAD, activity normal for age, well developed/ well nourished, no cyanosis, pallor, or diaphoresis. EYES lids/conjunctiva normal. EARS/NOSE/THROAT Mucous membranes moist, nares normal, lips/teeth normal uvula midline without oral pharyngeal erythema, exudate or swelling TMs normal bilaterally. No lymphangitis/lymphedema. HEAD/NECK normocephalic atraumatic, no facial trauma, neck is supple. RESPIRATORY respiratory effort normal, speaks in full sentences, no tripod position, no accessory muscle use. Lungs clear to auscultation without rhonchi, wheezes, rales CARDIAC Regular rate and rhythm, no edema. ABDOMINAL Soft, ND/NT. No evidence of fluid wave. No pulsatile masses on exam, rebound tenderness, Baxter sign or pain over Mcburney's point. MUSCLES/EXTREMITIES No abnormal range of motion, no swelling. Right AKA, stump without erythema, or edema. SKIN Warm, pink and dry. No rashes, dermatoses, + b/l upper exts petechiae NEUROLOGICAL Speech is clear and appropriate. Normal level of consciousness. Gait and coordination are normal. 5/5 strength in all extremities. PSYCH Normal mood and affect. Judgement/competence is appropriate Results & Data Results & Data Vital Signs (Past 12 Hours) Vital Signs Temp Pulse Pulse Resp BP BP Pulse Ox 11/03/24 08:00 11/03/24 07:40 36.9 C 96 H 19 180/99 H 94 11/03/24 06:21 96 H 178/103 H 11/03/24 03:49 36.5 C 96 H 18 192/110 H 94 11/02/24 22:51 36.6 C 82 18 175/90 H 95 O2 Del Method O2 Flow Rate 11/03/24 08:00 Nasal Cannula 2 11/03/24 07:40 Nasal Cannula 2 11/03/24 06:21 11/03/24 03:49 Nasal Cannula 2 11/02/24 22:51 Nasal Cannula 2 PG Care Time/CCT Total # of Minutes Spent Total Time Spent with Patient: Total time spent is greater than 50% in coordination of care (as documented) at patient's floor/unit and/or counseling patient: Coding Level of Care Code 71829 SUB INP/OBS CARE 2/35MIN Diagnoses MRSA bacteremia R78.81; B95.62 Peripheral arterial disease with history of revascularization I73.9; Z98.890 Mixed hyperlipidemia E78.2 Hyperlipidemia type: mixed hyperlipidemia Benign essential hypertension I10 Type 2 diabetes mellitus with diabetic polyneuropathy, with long-term current use of insulin E11.42; Z79.4 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
[2024-11-03] MEDS: GADOBUTROL 30ML VIAL IV ONE (11:36)
--- NOTE | 2024-11-03 12:24 | Magnetic Resonance Report ---
HISTORY: Unable to move. Infection. TECHNIQUE: MRI of the cervical spine with and without IV contrast. 7 cc of Gadavist IV contrast was administered. COMPARISON: Cervical spine CT dated 11/02/2024. FINDINGS: The cerebellar tonsils do not extend below the foramen magnum. The soft tissues of the neck are unremarkable. Straightening of cervical curvature. No significant listhesis. The vertebral body heights are maintained without compression deformity. Signal intensity of the bone marrow is normal. Minimal fluid is present in the C3-4 intervertebral disc space with no associated endplate erosion or enhancement. Enhancing fluid or phlegmon in the anterior epidural space extending from C1-C2 inferiorly to the C3-4 disc space measuring up to 0.5 cm in thickness anteriorly on series 12 image 8. AtC2-3: Moderate degenerative disc disease. There is calcification of the posterior longitudinal ligament posterior to the C2 vertebral body. This results in severe central canal stenosis With complete effacement of the CSF space and compression of the cervical spinal cord. Mild T2 hyperintensity within the cord at this level may represent edema or myelomalacia. The neuroforamina are patent. At C3-4: Severe degenerative disc disease. Posterior disc osteophyteComplex results in severe central canal stenosis with complete effacement of the CSF space and severe cord compression. Mid sagittal AP diam of the canal measuring 3 mm. Increased T2 signal intensity is mild within the cord and may represent myelomalacia or cord edema. severe bilateral neural foraminal stenosis. At C4-5: Moderate degenerative disc disease. Posterior disc osteophyte complex mildly narrows the central canal. severe left neuroforaminal narrowing. Mild right neuroforaminal narrowing. At C5-6: Severe degenerative disc disease. Posterior disc osteophyte is asymmetric to the left and contributes to moderate central canal stenosis. Mid sagittal AP diam of the canal measuring 8 mm. Severe bilateral neuroforaminal stenosis.. At C6-7: moderate degenerative disc disease. Posterior disc osteophyte complex mildly narrows the central canal. Severe bilateral neural foraminal stenosis is right greater than left. At C7-T1: Mild degenerative changes. No significant canal or foraminal stenosis. IMPRESSION: * Severe central canal stenosis at C2-3 and C3-4 due to calcification of the posterior longitudinal ligament and posterior disc osteophyte complex. This results in complete effacement of the CSF space and severe cord compression. Mild increased T2 hyperintensity within the cord at these levels may be related to cord edema or myelomalacia. * Minimal T2 hyperintensity within the disc space at C3-4. No endplate erosions or enhancement enhancement to confirm discitis/osteomyelitis. Enhancing fluid and edema in the epidural space extending from the level of C1-2 inferiorly to the C3-4 disc space measuring up to 0.5 cm in thickness anteriorly, which could represent phlegmon or abscess. * Severe multilevel neural foraminal stenosis. * Multilevel degenerative changes are detailed above by level. Electronically signed by Claude Shell 11-03-2024 12:24 PM
[2024-11-03] MEDS: MoRPHine SULFATE 4 MG/ML 1 ML CARP\\VIAL IV PRN (16:31)
[2024-11-03] MEDS: SODIUM CHLOR 7% 4 ML NEB NEB ONE (21:02)
[2024-11-04 06:10] LABS: Hematocrit (blood only) 32.7 % (42.0-52.0); Hemoglobin 10.2 g/dl (14.0-18.0); Mean Corpuscular Hemoglobin 25.6 pg (25.0-34.0); Mean Corpuscular Volume 82.2 fL (80.0-100.0); Platelet Count 181 K/uL (130-400); RDW Standard Deviation 54.6 fL (36.4-46.3); Red Blood Count 3.98 M/uL (4.70-6.10); White Blood Count 8.83 K/ul (4.8-10.8)
[2024-11-04 06:47] LABS: Anion Gap 8.0 (3-11); Blood Urea Nitrogen 38.0 mg/dl (6-23); Calcium 8.6 mg/dl (8.6-10.3); Carbon Dioxide 20.0 mmol/L (21-32); Chloride 111.0 mmol/L (98-107); Creatinine Clr Calc Pharmacy 50.7 ml/min; Glucose 178.0 mg/dl (70-99(Fasting)); Potassium 4.7 mmol/L (3.5-5.1); Sodium 139.0 mmol/L (136-145)
--- NOTE | 2024-11-04 09:08 | Palliative Care Consultation ---
Date of Consultation November 04, 2024 Assessment & Plan (1) Neck pain: Pt c/o neck pain and stiffness. He is unable to quantify or qualify pain. Continue PRN oxyIR PO or IV morphine (if unable to take PO) as previously ordered. (2) Acute alteration in mental status: (3) Counseling regarding goals of care: ACP discussion held from 13:10 - 13:45. Patient exhibits current lack of decisional capacity and does require a proxy for medical decisions. Hospital does not have written documentation of patient wishes concerning his chosen proxy for medical decisions. Patient is reportedly and has one adult child, Keyon Parkinson. Per PA [id number], in absence of written documentation of patient wishes, pt's proxy for medical decisions would be his son. Dr Garland was present for entire meeting and gave medical updates, summarized admission course and treatment options for pt's son. 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 She shared with them that to provide surgical intervention would require transfer to tertiary care center. The patient, although confused, did clearly state multiple times through conversation that he wants "to stop all of this". Keyon shared that he will likely not pursue surgical options but does wish for all current therapies to continue today. Pt's ex- is travelling from [place] to see him and Keyon is requesting a family meeting tomorrow when his mother can be present to support both him and the patient. We will plan for family meeting tomorrow, time TBD by son. (4) Palliative care by specialist: Met with pt and his son Keyon at bedside. Introduced Palliative Medicine and explained our role in advanced care planning, symptom management and navigation through the progression of life limiting disease. Patient and/or family were receptive to palliative services for goals of care discussions. Reviewed we are different from hospice, a home health nurse visiting service. Plan Family meeting tomorrow on arrival of additional family from [place]. Time TBD. 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 Pt was seen in the ER the day prior to admit with complaints of cervical back pain and fatigue.He had CT c-spine along with femur Xrays which were negative. His blood cultures returned + for MRSA and he was called back to the ER. Pt returned to ED with increased somnolence and labs showing elevated WBC, lactate and procal. He was started on vancomycin and was admitted for further work up of his MRSA bacteremia. Allergies Allergy/AdvReac Type Severity Reaction Status Date / Time animal dander Allergy Unknown Unknown Verified 10/27/24 21:57 doxycycline Allergy Rash Verified 11/01/24 16:49 Home Medications Medication Instructions Recorded Confirmed Type bismuth tribrom-petrolatum,wh 4" X #100 ea 04/18/24 04/18/24 Rx 4" bandage (Xeroform Petrolatum Dressing) tamsulosin 0.4 mg capsule (Flomax) 0.4 mg PO HS #90 caps 04/18/24 10/28/24 Rx blood-glucose sensor (Dexcom G7 #3 ea 04/30/24 Rx Sensor device) blood-glucose,freight receiver,cont #1 ea 04/30/24 Rx (Dexcom G7 Digital Designer) thiamine HCl (vitamin B1) 100 mg 100 mg PO BID 05/07/24 10/28/24 History tablet potassium chloride 20 mEq 20 meq PO BID #180 tabs 05/14/24 10/28/24 Rx tablet,extended release(part/cryst) sertraline 50 mg tablet 50 mg PO BID #180 tabs 05/14/24 10/28/24 Rx triamterene 75 1 tab PO DAILY #90 tabs 05/14/24 10/28/24 Rx mg-hydrochlorothiazide 50 mg tablet insulin glargine-yfgn 100 unit/mL 20 unit (0.2 mL) subcut QAM #15 mL 06/21/24 10/28/24 Rx (3 mL) subcutaneous pen (Semglee (insulin glargine-yfgn) Pen) blood sugar diagnostic (OneTouch #200 ea 09/09/24 Rx Verio test strips) blood-glucose meter (OneTouch #1 ea 09/09/24 Rx Verio Flex Meter) lancets 33 gauge #200 ea 09/09/24 Rx aspirin 81 mg tablet,delayed 81 mg PO QAM #20 tabs 10/16/24 10/28/24 Rx release cyanocobalamin (vitamin B-12) 500 1,000 mcg (2 x 500 mcg) PO QAM #10 10/16/24 10/28/24 Rx mcg tablet tabs ferrous gluconate 324 mg (38 mg 324 mg PO BIDM #30 tabs 10/16/24 10/28/24 Rx iron) tablet metoprolol tartrate 25 mg tablet 25 mg PO BID #20 tabs 10/16/24 10/28/24 Rx polyethylene glycol 3350 17 gram 17 g PO DAILY #10 ea 10/16/24 10/28/24 Rx oral powder packet (Miralax) tramadol 50 mg tablet 50 mg PO Q4H PRN pain #20 tabs 10/16/24 10/28/24 Rx acetaminophen 325 mg tablet 650 mg PO Q6H PRN PAIN/FEVER 10/27/24 10/28/24 History atorvastatin 20 mg tablet 20 mg PO HS 10/27/24 10/28/24 History cyclobenzaprine 5 mg tablet 5 mg PO Q8H PRN NECK SPASMS 10/27/24 10/28/24 History oxycodone 5 mg tablet 5 mg PO Q6H PRN Pain 10/27/24 10/28/24 History protein supplement 1 ea PO BIDM 10/27/24 10/28/24 History Milk of Magnesia 30 ml PO DAILY PRN Constipation 10/28/24 10/28/24 History bisacodyl 10 mg rectal suppository 10 mg MO DAILY PRN Constipation 10/28/24 10/28/24 History (Dulcolax (bisacodyl)) miconazole nitrate 2 % topical 1 applic topical BID 10/28/24 10/28/24 History cream sodium phosphates 19 gram-7 118 ml MO DAILY PRN Constipation 10/28/24 10/28/24 History gram/118 mL enema (Fleet Enema) Patient History Medical History Paroxysmal SVT (supraventricular tachycardia) 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 Prolonged QT interval Surgical History S/P femoral-tibial bypass S/P vascular surgery Social History Smoking Status: Former smoker Tobacco Type: Cigarettes Age Started Using Tobacco: 19; Age Quit Using Tobacco: 78; packs per day: 1; Cigarettes Per Day: 3-5 - "cut way back since my foot"; Second Hand Exposure: No; Do You Dip or Chew Tobacco: No; Hx Alcohol Use: No Hx Substance Use: No Preferred Language: Croatian Communication Ability: Effective Beading Installer Required: No Beliefs That Will Affect Care: None Current Living Situation: Detention Current Living Situation Comment: patient lives alone, states son does live c lose by Feels Safe at Home: Yes Assistive Devices: Cane and Walker Review of Systems Review of Systems: Unobtainable due to cognitive status Physical Exam Constitutional: + ill appearing, + thin, + physical limi tations, + frail appearing and cooperative Eyes: PERRL, conjunctivae normal, anicteric sclerae Neck: trachea midline, no thyromegaly Respiratory: + labored breathing, + uses accessory mu scles and + tachypneic; + not able to speak in complete sentence Cardiovascular: RRR, no murmur, no edema Musculoskeletal: generalized weakness Neurologic: moves all extremities, awake and + confused Psychiatric: Orientation: alert and oriented to person Results & Data Vital Signs (Past 12 Hours) Vital Signs Temp Pulse Pulse Resp BP BP Pulse Ox 11/04/24 07:31 37.1 C 96 H 22 166/88 H 97 11/04/24 04:27 36.6 C 103 H 28 H 170/90 H 88 L 11/03/24 22:14 36.6 C 113 H 30 H 168/88 H 95 11/03/24 21:41 120 H 11/03/24 21:25 181/87 H O2 Del Method O2 Flow Rate 11/04/24 07:31 Nasal Cannula 2 11/04/24 04:27 Nasal Cannula 2 11/03/24 22:14 Nasal Cannula 2 11/03/24 21:41 11/03/24 21:25 Laboratory Results Abnormal lab results 11/03/24 11/03/24 11/03/24 Range/Units 12:09 16:55 20:47 RBC (4.70-6.10) M/uL Hgb (14.0-18.0) g/dl Hct (42.0-52.0) % MCHC (32.0-36.0) g/dL RDW Std Deviation (36.4-46.3) fL RDW Coeff of Neftali (11.5-14.5) % Chloride (98-107) mmol/L Carbon Dioxide (21-32) mmol/L BUN (6-23) mg/dl BUN/Creatinine Ratio (10-20) Glucose (70-99(Fasting)) mg/dl POC Glucose 152 H 178 H 161 H (70-99) mg/dl 11/04/24 11/04/24 Range/Units 05:38 07:35 RBC 3.98 L (4.70-6.10) M/uL Hgb 10.2 L (14.0-18.0) g/dl Hct 32.7 L (42.0-52.0) % MCHC 31.2 L (32.0-36.0) g/dL RDW Std Deviation 54.6 H (36.4-46.3) fL RDW Coeff of Neftali 18.1 H (11.5-14.5) % Chloride 111 H (98-107) mmol/L Carbon Dioxide 20 L (21-32) mmol/L BUN 38 H (6-23) mg/dl BUN/Creatinine Ratio 31.7 H (10-20) Glucose 178 H (70-99(Fasting)) mg/dl POC Glucose 182 H (70-99) mg/dl Diagnostic Findings Femur X-Ray 10/28/24 13:14 XR femur RT 2V routine CLINICAL HISTORY: recent surgery COMPARISON: None FINDINGS: There is [id number] amputation at the mid to distal shaft right femur. Skin geovany remain distally. No acute fracture or dislocation. No evidence of osteomyelitis. There are mild degenerative changes at the right hip. IMPRESSION: Postoperative exam as described. ACT 112: Negative or not required by law. Electronically signed by: Galo Menjivar M.D. 10/28/2024 1:50 PM Femur MRI 10/28/24 16:11 CLINICAL HISTORY: Positive blood cultures above the knee amputation right leg skin geovany remain, scanned on 1.5T normal mode, geovany wanded nonferrous best scans possible due to pt motion, ran propeller sequences rule out sepsis, infection post surgery limited study. COMPARISON: None provided. TECHNIQUE: MRI Right femur on 1.5 T [facility] Current included T1W SE axial/coronal/sagittal, T2W sagittal and T2 TIRM axial/coronal acquisitions with multiplanar reformatted images for interrogation on the PACS workstation. Contrast dose: Non contrast exam. FINDINGS: Limitation: Inevitable motion artifacts seen in femur and soft tissues obscuring fine details significantly limiting the sensitivity of the examination. Muscles and tendons: Marked soft tissue edema and inflammatory changes seen involving anterior compartment of thigh and gluteal musculature on right returning hyperintense signal on T2W and PDFS images suggesting myositis due to inflammatory changes. The rest of the muscles and tendons of the extensors, flexors, adductors, abductors, rotators and hamstring groups appear unremarkable. Bones: Right femur is partly seen, distal part is not well visualized likely resected. Please correlate clinically. Ligaments: Normal ligaments seen. Subcutaneous soft tissue: Extensive soft tissue inflammatory changes seen in right anterolateral aspect of right thigh. Neurovascular bundle: Grossly unremarkable. Joint fluid/ bursae: The visualized hip joint appear unremarkable. No iliopsoas or subtrochanteric bursal effusion seen. No focal fluid collection or soft tissue mass noted. IMPRESSION: Limitation: Inevitable motion artifacts seen in the femur and soft tissues obscuring fine details significantly limiting the sensitivity of the examination. 1. Right femur is partly seen, distal part is not well visualized likely resected. Please correlate clinically. 2. Marked soft tissue edema and inflammatory changes seen involving anterior compartment of right thigh and gluteal musculature suggesting myositis due to inflammatory changes. 3. Extensive soft tissue inflammatory changes seen in right anterolateral aspect of right thigh. 4. Would recommend repeat scan with contrast enhanced to rule out infective collection. Electronically signed by Jassi Card 10-30-2024 12:[address] 10/31/24 07:[address] WITH CONTRAST CLINICAL HISTORY: r/o infectious collection. Status post right [id number]-tlks amputation October 11, 2024. COMPARISON STUDY: Right femur radiographs and right femur MRI October 28, 2024. TECHNIQUE: Axial images of the right femur and thigh were obtained following intravenous injection of 94 cc of Optiray 320 IV. Sagittal and coronal reformats were viewed. A dose lowering technique was utilized adhering to the principles of ALARA. FINDINGS: There are postoperative findings consistent with right above knee amputation. No clear bony destruction is present. However, periosteal hyperdensity along the resection margin of the the right femur suggests periostitis. There is an associated 1.9 cm peripherally enhancing focus along the medial aspect of the distal remaining right femur. There is an adjacent rim enhancing fluid collection within the distal remaining portion of fast this media [place] which measures 4.5 x 1.8 cm. There is no soft tissue gas. There is also a hypodense peripherally enhancing focus within the distal vastus lateralis on image 550 which measures 3.9 x 2.2 cm. Of note, there is edema within remaining portions of vastus lateralis and medialis as well as vastus intermedius. There is moderate fascial fluid within the mid right thigh. There is no soft tissue gas. There are no fractures. IMPRESSION: 1. Status post right above-knee amputation. No clear bony destruction. However, periosteal hyperdensity along the resection margin of the right femur suggests periostitis. Although this could be postsurgical, the findings are suspicious for an infectious process and developing osteomyelitis is within the diff erential. 2. Small rim-enhancing intramuscular fluid collections along the medial aspect of the distal right femur which measure up to 4.5 x 1.8 cm. Again, these could be postsurgical but are suspicious for small intramuscular abscesses. 3. Hypodense peripherally enhancing focus within the distal vastus lateralis measuring 3.9 x 2.2 cm. This is suggestive of myositis with developing intramuscular abscess. 4. Moderate fascial fluid within the proximal to mid right thigh without soft tissue gas. This is nonspecific although could represent an infectious process. ACT 112: Negative or not required by law. Electronically signed by: Bigg Ha M.D. 10/31/2024 9:32 AM Chest X-Ray 10/31/24 18:01 Chest radiograph, one view History: Hypoxia Comparison: 10/28/2024 Findings: Single AP view of the chest performed. There is mild perihilar opacity. No focal consolidation or pleural effusion. No pneumothorax. The cardiomediastinal silhouette is within normal limits. Indistinct pulmonary vascularity. No evidence for lymphadenopathy. No visualized bony or soft tissue abnormality. Impression: Indistinct pulmonary vasculature with mild perihilar opacity, suggesting pulmonary venous hypertension, with possible early pulmonary edema. Electronically signed by Ortega Marino 10-31-2024 6:[address] 10/31/24 18:03 EXAM: CT head/brain wo con CLINICAL HISTORY: AMS TECHNIQUE: Multiple axial images were obtained from the skull base to the vertex without contrast. The CT scan was performed according to ALARA (as low as reasonably achievable). 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 FINDINGS: Cerebral atrophy is present. No evidence of space-occupying lesion, hemorrhage, edema, mass effect, midline shift, extra-axial collection, or hydrocephalus is noted. The basal cisterns are symmetric and normal in size and configuration. There are scattered periventricular hypodensities, as can be seen with chronic microvascular ischemic changes. Alvarez-white matter differentiation is preserved. The visualized paranasal sinuses and left mastoid air cells are well aerated. Orbital contents are within normal limits. Bony structures are intact. Hypodense thickening in right mastoid air cells and middle ear cavity- could represent otomastoiditis.stable IMPRESSION: 1. No evidence of acute intracranial abnormality is demonstrated. 2. Chronic microvascular ischemic changes, stable. 3. Cerebral atrophy, stable. Electronically signed by Wes Chou 11-01-2024 01:[address] 11/02/24 10:09 Clinical history: Infection Technique: Axial computed tomography images were obtained of the cervical spine without intravenous contrast. Sagittal and coronal reconstructions were obtained Comparison is made with the prior CT dated 10/30/2024 Findings: Again seen is prevertebral soft tissue swelling. There has been suspected interval decrease in soft tissue attenuation material in the anterior prevertebral space in the upper cervical spine No fracture is identified. No listhesis is seen. No focal osseous lesion is evident. There is atlantoaxial osteoarthritis At C2-3, there is mild spinal stenosis due to a disc bulge and a central disc protrusion. There is mild right neural foramen narrowing At C3-4, there is spinal stenosis due to a disc bulge and a left paracentral disc osteophyte protrusion. There is bilateral neural foramen narrowing that may affect the exiting C4 nerve roots At C4-5, there is mild spinal stenosis due to a disc bulge and a central disc protrusion. There is left greater than right neural foramen narrowing that may affect the left C5 nerve root At C5-6, there is spinal stenosis due to a disc bulge and a left paracentral disc osteophyte protrusion. There is bilateral neural foramen narrowing that may affect the exiting C6 nerve roots At C6-7, there is a disc bulge without spinal stenosis. There is right neural foramen narrowing that may affect the right C7 nerve root At C7-T1, there is a disc bulge without spinal stenosis. The neural foramen are patent There are new groundglass infiltrates in the visualized right upper lobe. The visualized soft tissues of the neck appear unremarkable. No foreign body is seen There is unchanged mastoid air cell opacification Impression: 1. Suspected partial resolution of soft tissue attenuation material in the anterior epidural space in the upper cervical spine that could represent improving inflammatory/infectious tissue. MRI with and without contrast could better evaluate 2. Spinal stenosis from C2-3 through C5-6 3. Bilateral C3-4, left C4-5, bilateral C5-6, and right C6-7 neural foramen narrowing. This may affect the exiting nerve roots 4. New right upper lobe groundglass infiltrate, concerning for pneumonia 5. Unchanged mastoid air cell opacification, concerning for inflammatory mastoiditis ACT 112: Positive. There are findings on this exam that require communication between the performing entity and the patient following Patient Test Result Information Act ([place] ACT 112) guidelines. Electronically signed by Tevin Mtz 11-02-2024 11:20 AM Cervical Spine MRI 11/03/24 10:22 HISTORY: Unable to move. Infection. TECHNIQUE: MRI of the cervical spine with and without IV contrast. 7 cc of Gadavist IV contrast was administered. COMPARISON: Cervical spine CT dated 11/02/2024. FINDINGS: The cerebellar tonsils do not extend below the foramen magnum. The soft tissues of the neck are unremarkable. Straightening of cervical curvature. No significant listhesis. The vertebral body heights are maintained without compression deformity. Signal intensity of the bone marrow is normal. Minimal fluid is present in the C3-4 intervertebral disc space with no associated endplate erosion or enhancement. Enhancing fluid or phlegmon in the anterior epidural space extending from C1-C2 inferiorly to the C3-4 disc space measuring up to 0.5 cm in thickness anteriorly on series 12 image 8. AtC2-3: Moderate degenerative disc disease. There is calcification of the posterior longitudinal ligament posterior to the C2 vertebral body. This results in severe central canal stenosis With complete effacement of the CSF space and compression of the cervical spinal cord. Mild T2 hyperintensity within the cord at this level may represent edema or myelomalacia. The neuroforamina are patent. At C3-4: Severe degenerative disc disease. Posterior disc osteophyteComplex results in severe central canal stenosis with complete effacement of the CSF space and severe cord compression. Mid sagittal AP diam of the canal measuring 3 mm. Increased T2 signal intensity is mild within the cord and may represent myelomalacia or cord edema. severe bilateral neural foraminal stenosis. At C4-5: Moderate degenerative disc disease. Posterior disc osteophyte complex mildly narrows the central canal. severe left neuroforaminal narrowing. Mild right neuroforaminal narrowing. At C5-6: Severe degenerative disc disease. Posterior disc osteophyte is asymmetric to the left and contributes to moderate central canal stenosis. Mid sagittal AP diam of the canal measuring 8 mm. Severe bilateral neuroforaminal stenosis.. At C6-7: moderate degenerative disc disease. Posterior disc osteophyte complex mildly narrows the central canal. Severe bilateral neural foraminal stenosis is right greater than left. At C7-T1: Mild degenerative changes. No significant canal or foraminal stenosis. IMPRESSION: * Severe central canal stenosis at C2-3 and C3-4 due to calcification of the posterior longitudinal ligament and posterior disc osteophyte complex. This results in complete effacement of the CSF space and severe cord compression. Mild increased T2 hyperintensity within the cord at these levels may be related to cord edema or myelomalacia. * Minimal T2 hyperintensity within the disc space at C3-4. No endplate erosions or enhancement enhancement to confirm discitis/osteomyelitis. Enhancing fluid and edema in the epidural space extending from the level of C1-2 inferiorly to the C3-4 disc space measuring up to 0.5 cm in thickness anteriorly, which could represent phlegmon or abscess. * Severe multilevel neural foraminal stenosis. * Multilevel degenerative changes are detailed above by level. Electronically signed by Claude Shell 11-03-2024 12:24 PM Medications Administered Current Inpatient Medications Aspirin (Aspirin 81 Mg Ectab) 81 mg PO QAM ESTEFANI Stop: 11/28/24 08:59 Last Admin: 11/04/24 08:57 Dose: 81 mg Atorvastatin Calcium (Atorvastatin 20 Mg Tab) 20 mg PO HS ESTEFANI Stop: 11/27/24 20:59 Last Admin: 11/03/24 21:24 Dose: 20 mg Bisacodyl (Bisacodyl 10 Mg Supp) 10 mg MO DAILY PRN PRN Reason: Constipation Stop: 11/27/24 15:59 Cyanocobalamin (Cyanocobalamin (B-12) 500 Mcg Tablet) 1,000 mcg PO QAM [facility] Stop: 11/28/24 08:59 Last Admin: 11/04/24 08:58 Dose: 1,000 mcg Cyclobenzaprine HCl (Cyclobenzaprine Hcl 5 Mg Tab) 5 mg PO Q8H PRN PRN Reason: NECK SPASMS Stop: 11/27/24 15:59 Last Admin: 11/03/24 14:01 Dose: 5 mg Ferrous Gluconate (Ferrous Gluconate 324 Mg Tab) 324 mg PO BIDM [facility] Stop: 11/27/24 16:59 Last Admin: 11/04/24 08:57 Dose: 324 mg Heparin Sodium (Porcine) (Heparin Sod 5,000 Unit/0.5 Ml Vial) 5,000 units SQ Q8 [facility] Stop: 11/27/24 21:59 Last Admin: 11/04/24 06:33 Dose: 5,000 units Hydralazine HCl (Hydralazine Hcl 20 Mg/Ml Vial) 10 mg IV Q8 PRN PRN Reason: sbp>185 or dbp>95 Stop: 11/30/24 18:00 Last Admin: 11/03/24 20:30 Dose: 10 mg Daptomycin 850 mg/ Syringe 17 mls @ 8.5 mls/min IV Q24H [facility]; Protocol Stop: 11/15/24 21:59 Last Admin: 11/03/24 23:00 Dose: 8.5 mls/min Ceftaroline Fosamil 600 mg/ (Sodium Chloride) 270 mls @ 270 mls/hr IV Q12H [facility]; Protocol Stop: 11/15/24 19:59 Last Infusion: 11/03/24 23:01 Dose: Infused Insulin Aspart (Insulin Aspart Per Unit Charge) [facility] Stop: 11/27/24 17:14 Last Admin: 11/04/24 08:56 Dose: 3 units Insulin Glargine (Lantus Per Unit Charge) 5 units SC DAILY [facility] Stop: 12/03/24 08:59 Last Admin: 11/04/24 08:58 Dose: 5 units Lidocaine (Lidocaine 5% 1 Patch) 1 patch TD [facility] Stop: 11/28/24 08:59 Last Admin: 11/04/24 09:00 Dose: 1 patch Magnesium Hydroxide (Magnesium Hydroxide Susp 30 Ml Udc) 30 ml PO DAILY PRN PRN Reason: Constipation Stop: 11/27/24 16:36 Metoprolol Tartrate (Metoprolol Tartrate 50 Mg Tab) 50 mg PO BID [facility] Stop: 12/02/24 08:59 Last Admin: 11/04/24 09:01 Dose: 50 mg Miconazole Nitrate (Miconazole Nitrate 2% Cr 30 Gm Tube) 1 appln TOP BID [facility] Stop: 11/27/24 20:59 Last Admin: 11/04/24 09:03 Dose: 1 appln Miscellaneous (Remove Lidoderm Patch) 1 each N/A DAILY@2100 [facility] Stop: 11/28/24 20:59 Last Admin: 11/03/24 21:24 Dose: 1 each Miscellaneous Information (Pharmacy Glycemic Mgmt Consult) 1 each N/A UD PRN; Protocol PRN Reason: Consult Stop: 11/27/24 16:09 Morphine Sulfate (Morphine Sulfate 4 Mg/Ml 1 Ml Carp\\Vial) 4 mg IV Q2H PRN PRN Reason: Severe Pain (Scale 7, 8, 9,10) Stop: 11/17/24 15:15 Last Admin: 11/04/24 06:33 Dose: 4 mg Ondansetron HCl (Ondansetron Inj 2 Mg/Ml 2 Ml Vial) 4 mg IV Q6H PRN PRN Reason: Nausea Stop: 11/27/24 16:01 Last Admin: 10/31/24 18:35 Dose: 4 mg Oxycodone HCl (Oxycodone Hcl Ir 5 Mg Tab (Immediate Release)) 5 mg PO Q6H PRN PRN Reason: Severe Pain (Scale 7, 8, 9,10) Stop: 11/11/24 15:59 Last Admin: 11/03/24 13:44 Dose: 5 mg Polyethylene Glycol (Polyethylene (Miralax) 17 Gm Pack) 17 gm PO DAILY [facility] Stop: 11/28/24 08:59 Last Admin: 11/04/24 09:03 Dose: 17 gm Potassium Chloride (Potassium Chloride Crtab 20 Meq Tabcr) 20 meq PO BID [facility] Stop: 11/27/24 20:59 Last Admin: 11/04/24 09:03 Dose: 20 meq Sertraline HCl (Sertraline Hcl 50 Mg Tablet) 50 mg PO BID [facility] Stop: 11/27/24 20:59 Last Admin: 11/04/24 09:03 Dose: 50 mg Sodium Biphosphate/Sodium Phosphate (Sod Phosphate/Sod Biphosphate Enema 132 Ml Btl) 132 ml MO DAILY PRN PRN Reason: Constipation Stop: 11/27/24 15:59 Tamsulosin HCl (Tamsulosin Hcl 0.4 Mg Cap) 0.4 mg PO HS [facility] Stop: 11/27/24 20:59 Last Admin: 11/03/24 21:24 Dose: 0.4 mg Thiamine HCl (Thiamine Hcl 100 Mg Tab) 100 mg PO BID [facility] Stop: 11/27/24 20:59 Last Admin: 11/04/24 09:04 Dose: 100 mg Tramadol HCl (Tramadol Hcl 50 Mg Tablet) 50 mg PO Q4H PRN PRN Reason: Moderate Pain (Scale 4, 5, 6) Stop: 11/27/24 15:59 Last Admin: 11/03/24 21:23 Dose: 50 mg Triamterene/Hydrochlorothiazide (Triamterene/Hctz 37.5/25mg Tab) 1 tab PO DAILY [facility] Stop: 11/28/24 08:59 Last Admin: 11/04/24 09:04 Dose: 1 tab PG Care Time/CCT Total # of Minutes Spent Total Time Spent with Patient: Total time spent is greater than 50% in coordination of care (as documented) at patient's floor/unit and/or counseling patient: Advanced Care Planning 93423 Advanced Care Planning 30 [place] [address] IN/OBS CONSULT LVL 4,60M Patient Type New Medical Decision Making Moderate Complexity Diagnoses Neck pain M54.2 Acute alteration in mental status R41.82 Counseling regarding goals of care Z71.89 Palliative care by specialist Z51.5 Additional Codes Advanced Care Planning - 92311 Advanced Care Planning 30 Min: [id number] Advanced Care Planning 30 Min ([id number])
--- NOTE | 2024-11-04 11:57 | Infectious Disease Progress Nt ---
Date of Service November 04, 2024 Assessment & Plan (1) Neck pain: (2) Bacteremia due to Gram-positive bacteria: (3) Amputation above knee: Plan This is a 79-year-old male with a past medical history of DM2, PAD status post fem-popliteal bypass 02/2024, BPH, hypertension, right foot gangrene with second toe osteomyelitis status post ray amputation 02/22/2024 with clear margins (wound culture+ for MSSA and GBS, discharged on 7 days of cefazolin), right fifth metatarsal osteomyelitis with bone cultures+ for MRSA with associated MRSA bacteremia status post daptomycin for 6 weeks through 09/09/2024 with persistent/worsening osteomyelitis prompting return to ED 09/2024 with worsening right foot wound and fifth metatarsal osteomyelitis, 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 Wound culture grew MRSA and group B strep. He received 24 hours of daptomycin and ertapenem post OR. He was discharged on 10/16/2024. He returned to the ED on 10/27/2024 with neck pain. Workup was negative. He was discharged. He was asked to return on 10/28/2024 for positive blood cultures (4/4 bottles positive for MRSA). He continued to complain of neck pain. On admission, he was afebrile but then developed a fever with a Tmax of 39.1 . Labs: WBC 12.83, procalcitonin 0.92, BUN 30, creatinine 0.9. Repeat blood cultures also positive for MRSA. Chest x-ray showed no acute findings. Right femur x-ray shows an [id number] amputation at the mid to distal shaft of the femur. Skin geovany remain distally. No evidence of osteomyelitis. There are mild degenerative changes of the right hip. Cervical spine CT shows no definite signs of infectious discitis or osteomyelitis of the cervical spine. There is fluid and edema in the prevertebral space. Possible etiologies include infection, postoperative changes. No clear discrete abscess noted. There is intermediate signal intensity material in the epidural space at the level of the dens to C4-5. This could be infectious or inflammatory. No discrete epidural abscess identified. Stenosis at C3 C5 with compression of the spinal cord due to disc bulge and disc herniation. No definitive cord edema. There is opacification of the right mastoids which may be due to inflammatory mastoiditis. Transthoracic echocardiogram with no valve vegetations. He was started on vancomycin and Zosyn. Infectious disease consulted for MRSA bacteremia. An E consult without video evaluation completed as video/camera is not working Microbiology 10/27/2024 blood culture 4/4 bottles MRSA vanco OLIVERIO 1 10/28/2024 blood culture 4/4 bottles MRSA 10/30/2024 blood culture 2/4 bottles MRSA 10/31/2024 buttock wound culture ESBL ecoli 11/01/2024 blood culture 2/4 bottles MRSA Prior microbiology 10/08/2024 right foot wound culture MRSA, Streptococcus agalactiae (GBS) 07/29/24 right foot foot bone culture MRSA 07/29/2024 right foot wound culture MRSA 07/26 blood culture 4/4 bottles positive for MRSA 02/22/2024 right toe wound culture MSSA, Streptococcus agalactiae (GBS) Antibiotics vancomycin Zosyn Daptomycin 11/01-current Ceftaroline 11/01-current #High grade MRSA Bacteremia #Cervical spine epidural abscess vs phlegmon with stenosis #Possible myositis at R AKA site on imaging # S/p Right AKA (10/11/24) after failed course of medical management with abx for osteomyelitis #Buttock pressure wound, doesn't appear acutely infected # History of MRSA Right foot osteomyelitis and MRSA bacteremia 07/2024 # PAD, Status post vascularization Discussion Source of MRSA bacteremia may be the cervical spine abscess vs phlegmon or R AKA site. Evaluated by ortho surgery--concern that surgical intervention would be extensive and place him at risk for worsening neurologic outcome and failed fusion given infection. Imaging of R AKA site shows periostitis (postsurgical vs developing OM), small rim-enhancing intramuscular fluid collections along medial aspect of distal R femur (postsurgical vs abscess), possible myositis. 10/29 TTE without vegetations. Has a pressure ulcer on buttocks that does not appear acutely infected. Wound growing Ecoli- likely colonized with and skin irais. Pt with continued bacteremia as of 11/01, switched to salvage combination therapy with dapto and ceftaroline on 11/01. Recommendations - Follow up CELIA - Continue daptomycin 8 mg/kg IV daily. Baseline CK 36 on 11/01. Check at least weekly CK - Increased ceftaroline 600 mg IV to q8h for synergy i/s/o persistent MRSA bacteremia. - Ordered repeat blood cultures today - Follow up vascular surgery recommendations for possible infection at AKA site. - Monitor for metastatic bacterial seeding to joints, skin, [employer] which would require further work-up Will continue to follow Admission and Anticipated Discharge Date Admission Date: October 28, 2024 Subjective This patient recommendation is based on a telemedicine consult request which was completed asynchronously through chart review and information provided by the primary physician. The patient was not seen or examined today. The evaluation is consultative in nature and all patient care and treatment decisions can either be accepted or rejected by the patient's primary hospital-based treating physician using their own independent medical judgment for their patient. An e-consult was performed as the video cart is not functioning. Time Spent Reviewing Chart: 31+ minutes 11/01 BCx growing MRSA Afebrile No leukocytosis MRI cervical spine 11/03 with enhancing fluid and edema in epidural space extending from C1-2 to C3-4 disc space, could represent phlegmon or abscess Results & Data Vital Signs (Past 12 Hours) Vital Signs Temp Pulse Resp BP BP Pulse Ox O2 Del Method 11/04/24 11:41 37.3 C 81 23 172/90 H 96 Nasal Cannula 11/04/24 11:02 Nasal Cannula 11/04/24 07:31 37.1 C 96 H 22 166/88 H 97 Nasal Cannula 11/04/24 04:27 36.6 C 103 H 28 H 170/90 H 88 L Nasal Cannula O2 Flow Rate 11/04/24 11:41 2 11/04/24 11:02 2 11/04/24 07:31 2 11/04/24 04:27 2 Laboratory Results Short CBC 11/04/24 Range/Units 05:38 WBC 8.83 (4.8-10.8) K/ul Hgb 10.2 L (14.0-18.0) g/dl Hct 32.7 L (42.0-52.0) % Plt Count 181 (130-400) K/uL BMP 11/04/24 05:38 Sodium 139 Potassium 4.7 Chloride 111 H Carbon Dioxide 20 L BUN 38 H Creatinine 1.20 Glucose 178 H Calcium 8.6 Diagnostic Findings Cervical Spine CT 11/02/24 10:09 Clinical history: Infection Technique: Axial computed tomography images were obtained of the cervical spine without intravenous contrast. Sagittal and coronal reconstructions were obtained Comparison is made with the prior CT dated 10/30/2024 Findings: Again seen is prevertebral soft tissue swelling. There has been suspected interval decrease in soft tissue attenuation material in the anterior prevertebral space in the upper cervical spine No fracture is identified. No listhesis is seen. No focal osseous lesion is evident. There is atlantoaxial osteoarthritis At C2-3, there is mild spinal stenosis due to a disc bulge and a central disc protrusion. There is mild right neural foramen narrowing At C3-4, there is spinal stenosis due to a disc bulge and a left paracentral disc osteophyte protrusion. There is bilateral neural foramen narrowing that may affect the exiting C4 nerve roots At C4-5, there is mild spinal stenosis due to a disc bulge and a central disc protrusion. There is left greater than right neural foramen narrowing that may affect the left C5 nerve root At C5-6, there is spinal stenosis due to a disc bulge and a left paracentral disc osteophyte protrusion. There is bilateral neural foramen narrowing that may affect the exiting C6 nerve roots At C6-7, there is a disc bulge without spinal stenosis. There is right neural foramen narrowing that may affect the right C7 nerve root At C7-T1, there is a disc bulge without spinal stenosis. The neural foramen are patent There are new groundglass infiltrates in the visualized right upper lobe. The visualized soft tissues of the neck appear unremarkable. No foreign body is seen There is unchanged mastoid air cell opacification Impression: 1. Suspected partial resolution of soft tissue attenuation material in the anterior epidural space in the upper cervical spine that could represent improving inflammatory/infectious tissue. MRI with and without contrast could better evaluate 2. Spinal stenosis from C2-3 through C5-6 3. Bilateral C3-4, left C4-5, bilateral C5-6, and right C6-7 neural foramen narrowing. This may affect the exiting nerve roots 4. New right upper lobe groundglass infiltrate, concerning for pneumonia 5. Unchanged mastoid air cell opacification, concerning for inflammatory mastoiditis ACT 112: Positive. There are findings on this exam that require communication between the performing entity and the patient following Patient Test Result Information Act ([place] ACT 112) guidelines. Electronically signed by Tevin Mtz 11-02-2024 11:20 AM Cervical Spine MRI 11/03/24 10:22 HISTORY: Unable to move. Infection. TECHNIQUE: MRI of the cervical spine with and without IV contrast. 7 cc of Gadavist IV contrast was administered. COMPARISON: Cervical spine CT dated 11/02/2024. FINDINGS: The cerebellar tonsils do not extend below the foramen magnum. The soft tissues of the neck are unremarkable. Straightening of cervical curvature. No significant listhesis. The vertebral body heights are maintained without compression deformity. Signal intensity of the bone marrow is normal. Minimal fluid is present in the C3-4 intervertebral disc space with no associated endplate erosion or enhancement. Enhancing fluid or phlegmon in the anterior epidural space extending from C1-C2 inferiorly to the C3-4 disc space measuring up to 0.5 cm in thickness anteriorly on series 12 image 8. AtC2-3: Moderate degenerative disc disease. There is calcification of the posterior longitudinal ligament posterior to the C2 vertebral body. This results in severe central canal stenosis With complete effacement of the CSF space and compression of the cervical spinal cord. Mild T2 hyperintensity within the cord at this level may represent edema or myelomalacia. The neuroforamina are patent. At C3-4: Severe degenerative disc disease. Posterior disc osteophyteComplex results in severe central canal stenosis with complete effacement of the CSF space and severe cord compression. Mid sagittal AP diam of the canal measuring 3 mm. Increased T2 signal intensity is mild within the cord and may represent myelomalacia or cord edema. severe bilateral neural foraminal stenosis. At C4-5: Moderate degenerative disc disease. Posterior disc osteophyte complex mildly narrows the central canal. severe left neuroforaminal narrowing. Mild right neuroforaminal narrowing. At C5-6: Severe degenerative disc disease. Posterior disc osteophyte is asymmetric to the left and contributes to moderate central canal stenosis. Mid sagittal AP diam of the canal measuring 8 mm. Severe bilateral neuroforaminal stenosis.. At C6-7: moderate degenerative disc disease. Posterior disc osteophyte complex mildly narrows the central canal. Severe bilateral neural foraminal stenosis is right greater than left. At C7-T1: Mild degenerative changes. No significant canal or foraminal stenosis. IMPRESSION: * Severe central canal stenosis at C2-3 and C3-4 due to calcification of the posterior longitudinal ligament and posterior disc osteophyte complex. This results in complete effacement of the CSF space and severe cord compression. Mild increased T2 hyperintensity within the cord at these levels may be related to cord edema or myelomalacia. * Minimal T2 hyperintensity within the disc space at C3-4. No endplate erosions or enhancement enhancement to confirm discitis/osteomyelitis. Enhancing fluid and edema in the epidural space extending from the level of C1-2 inferiorly to the C3-4 disc space measuring up to 0.5 cm in thickness anteriorly, which could represent phlegmon or abscess. * Severe multilevel neural foraminal stenosis. * Multilevel degenerative changes are detailed above by level. Electronically signed by Claude Shell 11-03-2024 12:24 PM
--- NOTE | 2024-11-04 13:42 | Hospitalist Progress Note ---
Date of Service November 04, 2024 Assessment & Plan (1) MRSA bacteremia: (2) Peripheral arterial disease with history of revascularization: (3) Benign essential hypertension: Plan This patient is a 79-year-old male with a history of PAD s/p recent right AKA and femoropopliteal bypass, DM2 with neuropathy, HTN, HLD, BPH, depression, B12/folate/iron deficiency anemia, here with sepsis and MRSA bacteremia with likely cervical epidural abscess and possible right AKA stump abscess. #MRSA bacteremia/sepsis/cervical spine epidural abscess with cervical cord compression/acute metabolic encephalopathy-h/o of MRSA + osteo in right foot, s/p right AKA 10/07 who presented with neck pain-CT cervical spine 10/27 with C3-6 severe central canal and bilateral neural foraminal stenoses. MRI c-spine 10/28 showing fluid and edema in prevertebral space and intermediate signal intensity material in epidural space at dens to C4-5, and spinal stenosis C3-6. CT cervical spine with contrast 11/02 with suspected partial resolution of material in the epidural space and upper cervical spine. Repeat MRI cervical spine 11/03 with severe central canal stenosis C2-4 with complete effacement of CSF space and severe cord compression with cord edema/myelomalacia, negative for discitis/OM, and with epidural enhancing fluid and edema C1-C4. Orthopedic spine surgery also reviewed the MRI from 11/03 and thought it was significantly worse from previous and recommended transfer to tertiary care for cervical spine epidural abscess drainage and decompression. MRI right femur suggestive of myositis and recommended repeat scan with contrast to rule out infective collection. Decubitus ulcers positive for ESBL E. coli but do not appear to be acutely infected. Transthoracic echo without valvular vegetation. CELIA pending. Repeat blood cultures remain persistently positive on 10/27, 10/28, 10/30, and 11/01. Patient is encephalopathic secondary to ongoing infection but also could be the effect of opioids Ongoing discussion with palliative medicine and son, awaiting ex- to have further goals of care discussion-hold off on any transfer to tertiary care at this time as it does not seem patient wants to have aggressive, high risk surgery at this time. -Continue IV ceftaroline and daptomycin high doses for synergy-follow once weekly CK -Follow repeat blood cultures on 11/04 -Follow-up vascular surgery recommendations for possible infection AKA site if patient not going on comfort measures -Postpone CELIA until further goals of discussion are had -Follow CBC, CMP in the a.m. - Add acetaminophen as needed pain and continue tramadol, oxycodone and IV morphine as needed for more severe pain; continue Flexeril as needed for muscle spasms, lidocaine patch to the back for pain #PAD s/p recent right AKA/femoropopliteal bypass/HTN/HLD -Seen by vascular surgery and had geovany removed - BPs are somewhat elevated and his metoprolol dose was increased to 50 mg p.o. twice daily - Will have vascular reevaluate for possible infection but could just be expected postoperative fluid collection at the surgical site-Will await further goals of care discussion - Continue aspirin, atorvastatin, triamterene/HCTZ, metoprolol, and as needed IV hydralazine #DM2 with neuropathy-no acute issues, most recent HgbA1c 7.3% in 07/2024 - Continue low-dose Lantus and NovoLog but will tighten down NovoLog as remains with hyperglycemia greater than 180 #B12/folate/iron deficiency anemia-Hgb stable at 9-10.2, borderline microcytic, B12 folate and iron levels all borderline low last admission - Continue B12, folic acid and iron supplementation - Follow CBC #Depression-no acute issues - Continue home sertraline #BPH-currently has Raza catheter in place while not able to move due to cervical cord compression - Continue tamsulosin and Raza catheter care #Rash on upper extremities-apparently was present during last admission as well. His platelets are normal so do not suspect petechiae although it does appear this way. Could be due to bacteremia? - Monitor DVT prophylaxis-heparin SQ Disposition-continue same PCU, further goals of care discussion to be had on 11/05 once his ex- arrives. Appreciate palliative medicine consultation Admission and Anticipated Discharge Date Admission Date: October 28, 2024 Subjective Patient confused, lethargic. I discussed his care with palliative medicine. I also returned a second visit and we discussed his care with his son at the bedside. The patient did say at 1 point "I am done with all of this." After explaining to him his conditions, he did say "I do not get it." His son asked that we return with palliative medicine the following day to discuss his goals of care once his ex- who remains his friend is present. The patient does complain of pain in his back and neck. I also discussed his care with palliative medicine, infectious disease, and cardiology regarding the postponed CELIA. Telemetry with NSR -ST, PVCs, 80-100s Physical Exam Constitutional: + ill appearing and + lethargic Eyes: + anicteric sclerae Respiratory: able to speak in complete sentences and + tachypneic; no respiratory distress Cardiovascular: RRR, no murmur, no edema Gastrointestinal (Abdomen): normal bowel sounds, soft, nontender, no hepatosplenomegaly Skin: + rash (Bilateral petechial rash on bila teral upper extremities and hands) Neurologic: + focal motor deficit (1/5 strength thro ughout bilateral upper/lower extremities) Psychiatric: Orientation: oriented to person and oriented to place; + not oriented to time Genitourinary: + penis abnormality (Raza catheter in p lace draining clear yellow urine) Results & Data Results & Data Vital Signs (Past 12 Hours) Vital Signs Temp Pulse Resp BP BP Pulse Ox O2 Del Method 11/04/24 11:41 37.3 C 81 23 172/90 H 96 Nasal Cannula 11/04/24 11:02 Nasal Cannula 11/04/24 07:31 37.1 C 96 H 22 166/88 H 97 Nasal Cannula 11/04/24 04:27 36.6 C 103 H 28 H 170/90 H 88 L Nasal Cannula O2 Flow Rate 11/04/24 11:41 2 11/04/24 11:02 2 11/04/24 07:31 2 11/04/24 04:27 2 Laboratory Results CBC, BMP, blood cultures reviewed PG Care Time/CCT Total # of Minutes Spent Total Time Spent with Patient: Total time spent is greater than 50% in coordination of care (as documented) at patient's floor/unit and/or counseling patient: Coding Level of Care Code 21805 SUB INP/OBS CARE 3/50MIN Diagnoses MRSA bacteremia R78.81; B95.62 Peripheral arterial disease with history of revascularization I73.9; Z98.890 Benign essential hypertension I10
--- NOTE | 2024-11-04 14:38 | Pharmacy Report ---
Pharmacy Glycemic Short Note 2 - Date of Service November 04, 2024 - Glycemic Short BSG Results (Last 24 hours): 11/03/24 11/03/24 11/04/24 16:55 20:47 05:38 Glucose 178 H POC Glucose 178 H 161 H 11/04/24 11/04/24 07:35 11:46 Glucose POC Glucose 182 H 183 H OUTPATIENT ANTIDIABETIC REGIMEN: * Semglee (insulin glargine) 20 units SQ QAM * HbA1c: 7.3% (07/28/2024) ASSESSMENT: 11/04: * Patient received total of 10 units of insulin yesterday, of which 5 units were basal * Fasting BSG 178 mg/dL - will continue same basal for now * No change to CF/CR today 11/01: * Osmin has required very minimal insulin since he was admitted. He only required 3 units of insulin yesterday and they were all bolus. BSGs were 25-697-111-154mg/dL. * Fasting BSG was in the goal range this morning. Will not add basal insulin at this time. Carb ratio was loosened yesterday. This bolus insulin regimen will be continued without change today. * Antibiotics have been changed to daptomycin + ceftaroline today 10/30: * 79 year old male with T2DM using insulin glargine (long-acting) only at home * Unknown when last dose glargine given BREAKER UP * Blood glucose ranging from 110-170s * Given lower fasting glucose value of 99 this AM, holding glargine in the AM for now * Continue sliding scale glargine in the evening * Patient only eating 25% of breakfast as charted which could be contributing to lower glucose values * Vanc for MRSA bacteremia/potential osteomyelitis PLAN FOR INPATIENT GLYCEMIC CONTROL: * Basal insulin * Lantus 5 units once daily * Bolus insulin * NovoLog per scale ACHS or Q6hrs while NPO * Goal Range: Low 110 mg/dL - High 140 mg/dL * Correction Factor: 30 mg/dL/unit * Nutritional / Prandial insulin per carb ratio of 1 unit per 12 grams CHO consumed
[2024-11-04] MEDS: ACETAMINOPHEN 325 MG TAB PO PRN (15:08)
[2024-11-04] MEDS: CEFTAROLINE FOSAMIL ACETATE 600 MG in SODIUM CHLORIDE 0.9% 250 ML IV SCH (15:08)
[2024-11-04] MEDS: SODIUM CHLOR 7% 4 ML NEB NEB ONE (21:15)
[2024-11-05] MEDS: ALBUTEROL 0.083% NEBU SOLN 3 ML VIAL NEB STA (04:17)
[2024-11-05 04:43] LABS: Base Excess VBG -4.5 mEq/L; HCO3 VBG 19 mmol/L; Oxygen Saturation VBG 95.0 %; PCO2 VBG 30 mmHg (38-50); PO2 VBG 66 mmHg; pH VBG 7.41 (7.36-7.41)
--- NOTE | 2024-11-05 04:44 | Communication Note ---
Date of Service: November 05, 2024 Nurse diazertext that pt looks unwell around 04:00. Went to bedside to see patient. Pt is in notable respiratory distress. Lung sounds are quite tight, no crackles. Belly is soft and seemingly nontender. Pt denies pain anywhere at this time. Ordered labs and imaging; CXR, VBG, CBC, CMP, lactate. CXR done and reviewed at bedside; notable for prominant L sided bowel making it difficult to see diaphragm margin. KUB done due to this and bowels appear quite distended. Ordered chest CT and abdominal CT with contrast given permissible Cr. Labs largely unrevealing for current issue. CT imaging pending radiology read. Nurse called son who is POA and he came in to bedside. I discussed with him his father's complicated situation. He states his mom (pt's ex ) is still on her way from [place] and hopefully will be able to come in around 5pm or so today. I discussed code status with the son. He states he knows his dad would not want intubated and on a ventilator. I discussed with him low success for those who receive CPR without subsequent ventilator support. He would like to maintain doing CPR if needed at this point while we waits for discussion with family later today but pt will be DNI at this point and I advised he can change is mind any time and we can further discuss and change this any time. All questions answered to the best of my ability. Pt vitals remain surprisingly stable. Tachycardia is not new for him and stable in the 110s. BP is maintained. Pt continues to have labored breathing. Son at bedside.
[2024-11-05] MEDS: OPTIRAY 320 125ml IV ONE (04:53)
[2024-11-05 05:02] LABS: Hematocrit (blood only) 33.8 % (42.0-52.0); Hemoglobin 10.6 g/dl (14.0-18.0); Immature Granulocytes # (auto) 0.31 K/uL (0.01-0.20); Immature Granulocytes % (auto) 2.4 %; Mean Corpuscular Hemoglobin 26.0 pg (25.0-34.0); Mean Corpuscular Volume 83.0 fL (80.0-100.0); Platelet Count 202 K/uL (130-400); RDW Standard Deviation 55.0 fL (36.4-46.3); Red Blood Count 4.07 M/uL (4.70-6.10); White Blood Count 12.84 K/ul (4.8-10.8)
--- NOTE | 2024-11-05 05:19 | XRay Report ---
EXAM: XR chest 1V portable CLINICAL HISTORY: Worsening SOB. TECHNIQUE: An X-ray image of the chest was obtained in the anteroposterior (AP) projection. COMPARISON: Compared to the prior X-ray dated 10/31/2024. FINDINGS: Pulmonary Parenchyma: The film is rotated. An atelectatic band is noted in the right lower lung zone. Distended, gas-filled bowel loops are elevating the left diaphragmatic copula. There is veiling of both costophrenic angles, more right, likely small effusion. Heart and Mediastinum: The heart size and shape are normal. Bilateral perihilar prominent bronchovascular markings with peribronchial cuffing are nonspecific findings; clinical correlation is advised. Bony Thorax: The bony thorax appears intact without fractures or deformities. Soft Tissues: The soft tissues overlying the chest wall are unremarkable. IMPRESSION: 1. Newly seen veiling of both costophrenic angles, more right, likely small effusion. 2. Bilateral perihilar prominent bronchovascular markings with peribronchial cuffing and accentuated lung vascular markings, likely inflammatory or congestion. Stable. Electronically signed by Cj Giraldo 11-05-2024 05:18 AM
[2024-11-05 05:20] LABS: Alanine Aminotransferase 27.0 U/L (7-52); Albumin Globulin Ratio 0.6 (0.9-2); Albumin Level 2.8 gm/dl (3.4-5.0); Alkaline Phosphatase 99.0 U/L (34-104); Anion Gap 9.0 (3-11); Bilirubin,Total 0.6 mg/dl (0.2-1.0); Blood Urea Nitrogen 42.0 mg/dl (6-23); Calcium 8.6 mg/dl (8.6-10.3); Carbon Dioxide 19.0 mmol/L (21-32); Chloride 110.0 mmol/L (98-107); Creatinine Clr Calc Pharmacy 51.4 ml/min; Globulin 4.7 gm/dl (2.5-4.0); Glucose 189.0 mg/dl (70-99(Fasting)); Magnesium 2.5 mg/dl (1.7-2.4); Potassium 4.8 mmol/L (3.5-5.1); Sodium 138.0 mmol/L (136-145); Total Protein 7.5 gm/dl (6.0-8.3)
--- NOTE | 2024-11-05 05:25 | XRay Report ---
EXAM: XR KUB/Abdomen 1 view CLINICAL HISTORY: CXR findings TECHNIQUE: X-ray images of the abdomen were obtained in the supine position. COMPARISON: No prior studies are available for comparison. FINDINGS: Gas Pattern: Moderate large bowel gaseous distention is present. Soft Tissues: The soft tissues of the abdomen appear normal, without evidence of masses or calcifications. The liver, spleen, and kidneys are of normal size and position. Marked degenerative changes are present in the lower spine. IMPRESSION: 1. Moderate large bowel gaseous distention is present and requires clinical assessment and CT if indicated. 2. No air is seen under the diaphragm, and there is no evidence of complete intestinal obstruction. Electronically signed by Cj Giraldo 11-05-2024 05:25 AM
--- NOTE | 2024-11-05 06:19 | CT Scan Report ---
EXAM: CT angio chest PE protocol CLINICAL HISTORY: PE TECHNIQUE: Contiguous axial images were obtained from the base of the neck through the upper abdomen following intravenous administration of iodinated contrast material. Angiographic images were processed, and 3D MIP images were acquired for interpretation. If IV contrast material had not been administered, the likelihood of detecting abnormalities relevant to the patient's condition would have been substantially decreased. Coronal and sagittal 3-D MIPs were likewise performed and indicated to increase the sensitivity of detecting diffuse clinically relevant pathology. CT scan was performed according to ALARA (as low as reasonably achievable). COMPARISON: None. FINDINGS: Mild bilateral pleural effusion with basal subsegmental collapse of both lower lobes is seen. Multiple atelectatic bands are noted involving bilateral lung bases. Adequate contrast bolus is present without evidence of pulmonary embolism. The central airways are patent. The heart, aorta, and pulmonary arteries are of normal size and configuration. Coronary artery and aortic atherosclerotic calcifications are present. No pericardial effusion is identified. The thyroid is unremarkable. No mediastinal, hilar, or axillary lymphadenopathy is noted. No suspicious lytic or sclerotic osseous lesions are identified. IMPRESSION: Mild bilateral pleural effusion with basal subsegmental collapse of both lower lobes is seen. Multiple atelectatic bands are noted involving bilateral lung bases. No pulmonary embolism. Electronically signed by Wes Chou 11-05-2024 06:18 AM
--- NOTE | 2024-11-05 07:07 | CT Scan Report ---
EXAM: CT abd pelvis IV con only CLINICAL HISTORY: distension TECHNIQUE: Contiguous axial images were obtained from the level of the diaphragm to the pubic symphysis with intravenous contrast. Coronal and sagittal reconstructions were also performed and indicated to increase the sensitivity for detecting clinically relevant pathology. If IV contrast material had not been administered, the likelihood of detecting abnormalities relevant to the patient's condition would have been substantially decreased. The CT scan was performed according to ALARA (as low as reasonably achievable). COMPARISON: None. FINDINGS: Mild bilateral pleural effusion with basal subsegmental collapse of both lower lobes is seen. The liver is normal in size and attenuation. A tiny cyst is noted in segment V. There is no intrahepatic or extrahepatic biliary ductal dilatation. The hepatic vasculature is patent. The gallbladder is present. The spleen, pancreas, and adrenal glands are unremarkable. The kidneys are normal in size and attenuation. There is no hydronephrosis or perinephric fat stranding. No renal calculi or renal masses are identified. Few subcentimeter sized renal cysts in bilateral kidney. The ureters are normal in caliber, and no ureteral calculi are seen. The bladder is normal in contour. Pelvic viscera are unremarkable. No focal or diffuse bowel wall thickening or evidence of bowel obstruction is identified. Appendix not clearly visualised. There is no imaging evidence of inflammation in right iliac fossa. The abdominal and pelvic vasculature is patent. No aggressive appearing osseous lesions are identified. The caecum is dilated (8-9 cm) and shows fecal distension. Rest of the large bowel shows normal diameter with mild fecal and gas distension. Mild pelvic ascites is seen. An enlarged prostate measuring about 52 x 55 mm is noted. Bilateral fat containing inguinal hernia. Severe degenerative changes involving the spine are present. Diffuse atherosclerotic calcification is noted involving the aorta and iliac arteries. IMPRESSION: Mild bilateral pleural effusion with basal subsegmental collapse of both lower lobes is seen. The caecum is dilated (8-9 cm) and shows fecal distension Mild pelvic ascites is seen. An enlarged prostate measuring about 52 x 55 mm is noted. Electronically signed by Wes Chou 11-05-2024 07:07 AM
[2024-11-05] MEDS: LACTATED RINGER'S 1,000 ML IV SCH (07:49)
--- NOTE | 2024-11-05 08:06 | Hospitalist Progress Note ---
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 #Comfort measures only-patient was not decisional due to encephalopathy from infection and opioids for pain control. Due to his declining status, and decision to not pursue surgical washout and decompression of the cervical spine which would involve transfer to tertiary care, patient was transitioned to comfort measures only on 11/05. This was after discussion with patient's son/decision maker along with the patient's ex- who is also a friend of his. 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 MRI c-spine 10/28 showing fluid and edema in prevertebral space and intermediate signal intensity material in epidural space at dens to C4-5, and spinal stenosis C3-6. CT cervical spine with contrast 11/02 with suspected partial resolution of material in the epidural space and upper cervical spine. Repeat MRI cervical spine 11/03 with severe central canal stenosis C2-4 with complete effacement of CSF space and severe cord compression with cord edema/myelomalacia, negative for discitis/OM, and with epidural enhancing fluid and edema C1-C4. Orthopedic spine surgery also reviewed the MRI from 11/03 and thought it was significantly worse from previous and recommended transfer to tertiary care for cervical spine epidural abscess drainage and decompression. MRI right femur suggestive of myositis and recommended repeat scan with contrast to rule out infective collection. Decubitus ulcers positive for ESBL E. coli but do not appear to be acutely infected. Transthoracic echo without valvular vegetation and CELIA not performed due to pursuing [employer]INE [employer]ATOR Repeat blood cultures persistently positive on 10/27, 10/28, 10/30, and 11/01. 11/04 cultures no growth to date Patient is encephalopathic secondary to ongoing infection but also could be the effect of opioids Decision made to pursue comfort measures only and to not go through with high risk cervical spine surgery for epidural abscess drainage as he would be high risk for surgery/anesthesia and patient's family did not think he would want to do this He was treated with IV ceftaroline and daptomycin and these were discontinued when he was transition to comfort measures only #PAD s/p recent right AKA/femoropopliteal bypass/HTN/HLD -Seen by vascular surgery and had geovany removed - All home medications stopped on [employer]INE O[employer]ATOR #DM2 with neuropathy-no acute issues, most recent HgbA1c 7.3% in 07/2024 -All medications and BSG's stopped on [employer]INE [employer]ATOR #B12/folate/iron deficiency anemia-Hgb stable at 9-10.2, borderline microcytic, B12 folate and iron levels all borderline low last admission -Stop B12, folic acid and iron supplementation on [employer]INE OPERATOR #Depression- -Discontinue home sertraline on [employer]IPE WR[employer]ACHINE OPERATOR #BPH-currently has Raza catheter in place while not able to move due to cervical cord compression -Discontinue tamsulosin and continue Raza catheter care while on PIPE [employer]INE OPERATOR #Rash on upper extremities-apparently was present during last admission as well. His platelets are normal so do not suspect petechiae although it does appear this way. Could be due to bacteremia? - No further evaluation needed on [employer]INE OPERATOR DVT prophylaxis-heparin SQ discontinued on PIPE WR[employer]ING MACHINE OPERATOR Disposition-downgrade to medical/surgical unit on comfort measures only. Will reassess in 24 hours to see if candidate for hospice at custodial versus [facility] Admission and Anticipated Discharge Date Admission Date: October 28, 2024 Subjective Patient continues to be lethargic and tachypneic. Overnight resident was contacted due to the patient not looking well and ordered a CT angiogram the chest and CT of the abdomen/pelvis which were reviewed. He had some small pleural effusions, no PE, and had ileus. I discussed his care with his son at the bedside and later with his ex- and his son at the bedside along with palliative medicine. The patient was unable to comprehend and explanation of his diagnoses and prognosis. His son ultimately decided to pursue comfort measures only. Telemetry with normal sinus rhythm and PVCs with rates in the 80s to 110s Physical Exam Constitutional: + ill appearing and + lethargic Eyes: + anicteric sclerae Respiratory: + respiratory distress, + uses accessory muscles and + tachypneic; + not able to speak in complete sentence Auscultation: + diminished lung sounds (At bases bilaterally) Cardiovascular: RRR, no murmur, no edema Gastrointestinal (Abdomen): normal bowel sounds, soft, nontender, no hepatosplenomegaly Skin: + rash (Bilateral petechial rash on bila teral upper extremities and h ands) Neurologic: + focal motor deficit (1/5 strength thro ughout bilateral upper/lower extremities) Psychiatric: Orientation: + not alert Genitourinary: + penis abnormality (Raza catheter in p lace draining clear yellow urine) Results & Data Results & Data Vital Signs (Past 12 Hours) Vital Signs Temp Pulse Pulse Pulse Resp BP Pulse Ox 11/05/24 04:20 116 H 95 11/05/24 04:00 37.2 C 113 H 26 H 157/84 H 94 11/05/24 03:41 37.0 C 109 H 26 H 194/102 H 93 11/04/24 22:56 36.5 C 95 H 30 H 185/101 H 97 11/04/24 21:53 95 H 11/04/24 21:16 24 L 108 H 90 11/04/24 20:30 11/04/24 20:22 36.7 C 106 H 18 189/109 H 100 O2 Del Method O2 Flow Rate 11/05/24 04:20 Nasal Cannula 6 11/05/24 04:00 Oxymask 6 11/05/24 03:41 Nasal Cannula 2 11/04/24 22:56 Nasal Cannula 2 11/04/24 21:53 11/04/24 21:16 Nasal Cannula 2 11/04/24 20:30 Nasal Cannula 2 11/04/24 20:22 Nasal Cannula 2 Laboratory Results CBC, BMP, lactate, procalcitonin, VBG, LFTs, blood cultures, troponin reviewed Diagnostic Findings CTA chest, CT abdomen/pelvis reviewed PG Care Time/CCT Total # of Minutes Spent Total Time Spent with Patient: Total time spent is greater than 50% in coordination of care (as documented) at patient's floor/unit and/or counseling patient: Coding Level of Care Code 99939 SUB INP/OBS CARE 3/50MIN Diagnoses Comfort measures only status Z51.5 MRSA bacteremia R78.81; B95.62 Peripheral arterial disease with history of revascularization I73.9; Z98.890 Benign essential hypertension I10
[2024-11-05 12:00] VITALS: BP 163/95; RESP 30; TEMP 97.9; O2SAT 96
--- NOTE | 2024-11-05 14:09 | Palliative Care Progress Note ---
Date of Service November 05, 2024 Assessment & Plan (1) Neck pain: Plan: Pt appears comfortable today. Continue PRN oxyIR PO or IV morphine (if unable to take PO) as previously ordered. (2) Acute alteration in mental status: (3) Counseling regarding goals of care: Plan: Today:Met with son at bedside. He shared that pt's ex- has been delayed in her travels and will not arrive until after 5pm today. He expressed desire to ensure pt remains comfortable but not transition to comfort care until the rest of the family arrives this evening. He stated that he is aware patient is dying but he would like to afford the ex- the opportunity to see him while he is still lucid. To this end, he shared that he would like to avoid any sedating medications unless absolutely needed, and reinforced that comfort is his priority for the patient. He agrees that patient currently appears comfortable although he is tachypneic. He shared that he would like to have someone from attending team available to share admit course and answer questions when family arrives, but the plan is to transition to comfort directed care after allowing some time to visit. 11/04: ACP mtg: Patient exhibits current lack of decisional capacity and does require a proxy for medical decisions. Hospital does not have written documentation of patient wishes concerning his chosen proxy for medical decisions. Patient is reportedly and has one adult child, Keyon Parkinson. Per [place] [id number], in absence of written documentation of patient wishes, pt's proxy for medical decisions would be his son. Dr Graland was present for entire meeting and gave medical updates, summarized admission course and treatment options for pt's son. 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 She shared with them that to provide surgical intervention would require transfer to tertiary care center. The patient, although confused, did clearly state multiple times through conversation that he wants "to stop all of this". Keyon shared that he will likely not pursue surgical options but does wish for all current therapies to continue today. Pt's ex- is travelling from [place] to see him and Keyon is requesting a family meeting tomorrow when his mother can be present to support both him and the patient. We will plan for family meeting tomorrow, time TBD by son. (4) Palliative care by specialist: Plan: Met with pt and his son Keyon at bedside. Palliative care will continue to follow for ongoing EOL pt care and family support. (5) Need for comfort care: Plan: When family has arrived and agrees to comfort directed care, we have the following recs for symptom management. Comfort plan of care parameters: 1. Patient/Family want hospice added to their care. 2. NO rehab/PT/OT 3. Strictly End of Life care only 4. NO escalation of care: do not increase oxygen, escalate therapies, etc. The focus is on comfort through end of life, assure this is accomplished with aggressive symptom management (i.e. relief of dyspnea, pain, etc.) 5. NO return to hospital if able to be discharged 6. NO labs, imaging, surgery 7. Oral intake as desired for comfort and pleasure: NO dietary restriction, Allow permissive aspiration, do not withhold food or drink for concern of aspiration and allow PO for pleasure and comfort. 8. If difficulty urinating/commode/bedpan, ok to place Raza catheter for comfort/hygiene/skin protection AND/OR Continue Raza catheter for comfort/hygiene/skin protection 9. NO: calorie counts, artificial nutrition, feeding tubes or IV fluids EOL Symptom manamgement: Pain/dyspnea/tachypnea morphine 4mg IVP PRN [id number] Consider titratable morphine drip if pt requires >3 PRN doses in under two consecutive hours. Nausea/vomitting zofran 4mg IVP q4h PRN Agitation ativan 0.5mg IVP q4h PRN Hyperactive delirium haldol 5mg IVP q6h PRN Secretions - if repositioning not effective robinul 0.4mg IV q4h PRN atropine SL 3 drops Q1h PRN Nursing care: Discontinue all medications not directed towards comfort. Detether pt from IV tubing, monitor cables, and check vitals once per shift. Please continue HFNC and titrate down as able for patient comfort. Use medications above PRN for dyspnea/tachypnea and do not increase oxygen once titrated down. Assess q1h for pain/dyspnea and treat accordingly. Plan As above Admission and Anticipated Discharge Date Admission Date: October 28, 2024 Subjective Assessed pt at bedside. His son was present. Pt less responsive today, but had recently received morphine for dyspnea. He appears comfortable. Although tachypneic, he does not appear dyspneic, no accessory muscle use noted, RR 22 with 6l via NC. Review of Systems Review of Systems: Unobtainable due to cognitive status Physical Exam Constitutional: + ill appearing, + thin, + physical limi tations, + frail appearing and cooperative Eyes: PERRL, conjunctivae normal, anicteric sclerae Neck: trachea midline, no thyromegaly Respiratory: + labored breathing, + uses accessory mu scles and + tachypneic; + not able to speak in complete sentence Cardiovascular: RRR, no murmur, no edema Musculoskeletal: generalized weakness Neurologic: moves all extremities, awake and + confused Psychiatric: Orientation: alert and oriented to person Results & Data Vital Signs (Past 12 Hours) Vital Signs Temp Pulse Pulse Resp BP BP Pulse Ox 11/05/24 12:29 11/05/24 11:55 36.6 C 120 H 30 H 163/95 H 96 11/05/24 10:24 114 H 11/05/24 10:22 75 11/05/24 08:38 36.7 C 120 H 26 H 163/99 H 95 11/05/24 04:20 116 H 95 11/05/24 04:00 37.2 C 113 H 26 H 157/84 H 94 11/05/24 03:41 37.0 C 109 H 26 H 194/102 H 93 O2 Del Method O2 Flow Rate 11/05/24 12:29 Nasal Cannula 6 11/05/24 11:55 Nasal Cannula 11/05/24 10:24 11/05/24 10:22 11/05/24 08:38 Nasal Cannula 11/05/24 04:20 Nasal Cannula 6 11/05/24 04:00 Oxymask 6 11/05/24 03:41 Nasal Cannula 2 Laboratory Results Abnormal lab results 11/04/24 11/04/24 11/05/24 Range/Units 16:55 20:38 04:29 WBC 12.84 H (4.8-10.8) K/ul RBC 4.07 L (4.70-6.10) M/uL Hgb 10.6 L (14.0-18.0) g/dl Hct 33.8 L (42.0-52.0) % MCHC 31.4 L (32.0-36.0) g/dL RDW Std Deviation 55.0 H (36.4-46.3) fL RDW Coeff of Neftali 18.1 H (11.5-14.5) % MPV 9.2 L (9.4-12.4) fL Neut # (Auto) 10.84 H (1.40-6.50) K/uL Lymph # (Auto) 1.03 L (1.20-3.40) K/uL [place] # (Auto) 0.61 H (0.11-0.59) K/uL Immature Gran # (Auto) 0.31 H (0.01-0.20) K/uL VBG pCO2 30 L (38-50) mmHg Chloride 110 H (98-107) mmol/L Carbon Dioxide 19 L (21-32) mmol/L BUN 42 H (6-23) mg/dl BUN/Creatinine Ratio 36.2 H (10-20) Glucose 189 H (70-99(Fasting)) mg/dl POC Glucose 151 H 138 H (70-99) mg/dl Magnesium 2.5 H (1.7-2.4) mg/dl AST 47 H (13-39) U/L Troponin I High Sens 103.2 H* (0-20) pg/ml Albumin 2.8 L (3.4-5.0) gm/dl Globulin 4.7 H (2.5-4.0) gm/dl Albumin/Globulin Ratio 0.6 L (0.9-2) 11/05/24 11/05/24 11/05/24 Range/Units 08:37 10:28 11:59 WBC (4.8-10.8) K/ul RBC (4.70-6.10) M/uL Hgb (14.0-18.0) g/dl Hct (42.0-52.0) % MCHC (32.0-36.0) g/dL RDW Std Deviation (36.4-46.3) fL RDW Coeff of Neftali (11.5-14.5) % MPV (9.4-12.4) fL Neut # (Auto) (1.40-6.50) K/uL Lymph # (Auto) (1.20-3.40) K/uL [place] # (Auto) (0.11-0.59) K/uL Immature Gran # (Auto) (0.01-0.20) K/uL VBG pCO2 (38-50) mmHg Chloride (98-107) mmol/L Carbon Dioxide (21-32) mmol/L BUN (6-23) mg/dl BUN/Creatinine Ratio (10-20) Glucose (70-99(Fasting)) mg/dl POC Glucose 200 H 182 H (70-99) mg/dl Magnesium (1.7-2.4) mg/dl AST (13-39) U/L Troponin I High Sens 90.2 H* D (0-20) pg/ml Albumin (3.4-5.0) gm/dl Globulin (2.5-4.0) gm/dl Albumin/Globulin Ratio (0.9-2) Diagnostic Findings Femur X-Ray 10/28/24 13:14 XR femur RT 2V routine CLINICAL HISTORY: recent surgery COMPARISON: None FINDINGS: There is [id number] amputation at the mid to distal shaft right femur. Skin geovany remain distally. No acute fracture or dislocation. No evidence of osteomyelitis. There are mild degenerative changes at the right hip. IMPRESSION: Postoperative exam as described. ACT 112: Negative or not required by law. Electronically signed by: Galo Menjivar M.D. 10/28/2024 1:50 PM Femur MRI 10/28/24 16:11 CLINICAL HISTORY: Positive blood cultures above the knee amputation right leg skin geovany remain, scanned on 1.5T normal mode, geovany wanded nonferrous best scans possible due to pt motion, ran propeller sequences rule out sepsis, infection post surgery limited study. COMPARISON: None provided. TECHNIQUE: MRI Right femur on 1.5 T [facility] Current included T1W SE axial/coronal/sagittal, T2W sagittal and T2 TIRM axial/coronal acquisitions with multiplanar reformatted images for interrogation on the PACS workstation. Contrast dose: Non contrast exam. FINDINGS: Limitation: Inevitable motion artifacts seen in femur and soft tissues obscuring fine details significantly limiting the sensitivity of the examination. Muscles and tendons: Marked soft tissue edema and inflammatory changes seen involving anterior compartment of thigh and gluteal musculature on right returning hyperintense signal on T2W and PDFS images suggesting myositis due to inflammatory changes. The rest of the muscles and tendons of the extensors, flexors, adductors, abductors, rotators and hamstring groups appear unremarkable. Bones: Right femur is partly seen, distal part is not well visualized likely resected. Please correlate clinically. Ligaments: Normal ligaments seen. Subcutaneous soft tissue: Extensive soft tissue inflammatory changes seen in right anterolateral aspect of right thigh. Neurovascular bundle: Grossly unremarkable. Joint fluid/ bursae: The visualized hip joint appear unremarkable. No iliopsoas or subtrochanteric bursal effusion seen. No focal fluid collection or soft tissue mass noted. IMPRESSION: Limitation: Inevitable motion artifacts seen in the femur and soft tissues obscuring fine details significantly limiting the sensitivity of the examination. 1. Right femur is partly seen, distal part is not well visualized likely resected. Please correlate clinically. 2. Marked soft tissue edema and inflammatory changes seen involving anterior compartment of right thigh and gluteal musculature suggesting myositis due to inflammatory changes. 3. Extensive soft tissue inflammatory changes seen in right anterolateral aspect of right thigh. 4. Would recommend repeat scan with contrast enhanced to rule out infective collection. Electronically signed by Jassi Card 10-30-2024 12:[address] 10/31/24 07:[address] WITH CONTRAST CLINICAL HISTORY: r/o infectious collection. 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 COMPARISON STUDY: Right femur radiographs and right femur MRI October 28, 2024. TECHNIQUE: Axial images of the right femur and thigh were obtained following intravenous injection of 94 cc of Optiray 320 IV. Sagittal and coronal reformats were viewed. A dose lowering technique was utilized adhering to the principles of ALARA. FINDINGS: There are postoperative findings consistent with right above knee amputation. No clear bony destruction is present. However, periosteal hyperdensity along the resection margin of the the right femur suggests periostitis. There is an associated 1.9 cm peripherally enhancing focus along the medial aspect of the distal remaining right femur. There is an adjacent rim enhancing fluid collection within the distal remaining portion of fast this media [place] which measures 4.5 x 1.8 cm. There is no soft tissue gas. There is also a hypodense peripherally enhancing focus within the distal vastus lateralis on image 550 which measures 3.9 x 2.2 cm. Of note, there is edema within remaining portions of vastus lateralis and medialis as well as vastus intermedius. There is moderate fascial fluid within the mid right thigh. There is no soft tissue gas. There are no fractures. IMPRESSION: 1. Status post right above-knee amputation. No clear bony destruction. However, periosteal hyperdensity along the resection margin of the right femur suggests periostitis. Although this could be postsurgical, the findings are suspicious for an infectious process and developing osteomyelitis is within the differential. 2. Small rim-enhancing intramuscular fluid collections along the medial aspect of the distal right femur which measure up to 4.5 x 1.8 cm. Again, these could be postsurgical but are suspicious for small intramuscular abscesses. 3. Hypodense peripherally enhancing focus within the distal vastus lateralis measuring 3.9 x 2.2 cm. This is suggestive of myositis with developing intramuscular abscess. 4. Moderate fascial fluid within the proximal to mid right thigh without soft tissue gas. This is nonspecific although could represent an infectious process. ACT 112: Negative or not required by law. Electronically signed by: Bigg Ha M.D. 10/31/2024 9:[address] 10/31/24 18:03 EXAM: CT head/brain wo con CLINICAL HISTORY: AMS TECHNIQUE: Multiple axial images were obtained from the skull base to the vertex without contrast. The CT scan was performed according to ALARA (as low as reasonably achievable). 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 FINDINGS: Cerebral atrophy is present. No evidence of space-occupying lesion, hemorrhage, edema, mass effect, midline shift, extra-axial collection, or hydrocephalus is noted. The basal cisterns are symmetric and normal in size and configuration. There are scattered periventricular hypodensities, as can be seen with chronic microvascular ischemic changes. Alvarez-white matter differentiation is preserved. The visualized paranasal sinuses and left mastoid air cells are well aerated. Orbital contents are within normal limits. Bony structures are intact. Hypodense thickening in right mastoid air cells and middle ear cavity- could represent otomastoiditis.stable IMPRESSION: 1. No evidence of acute intracranial abnormality is demonstrated. 2. Chronic microvascular ischemic changes, stable. 3. Cerebral atrophy, stable. Electronically signed by Wes Chou 11-01-2024 01:[address] 11/02/24 10:09 Clinical history: Infection Technique: Axial computed tomography images were obtained of the cervical spine without intravenous contrast. Sagittal and coronal reconstructions were obtained Comparison is made with the prior CT dated 10/30/2024 Findings: Again seen is prevertebral soft tissue swelling. There has been suspected interval decrease in soft tissue attenuation material in the anterior prevertebral space in the upper cervical spine No fracture is identified. No listhesis is seen. No focal osseous lesion is evident. There is atlantoaxial osteoarthritis At C2-3, there is mild spinal stenosis due to a disc bulge and a central disc protrusion. There is mild right neural foramen narrowing At C3-4, there is spinal stenosis due to a disc bulge and a left paracentral disc osteophyte protrusion. There is bilateral neural foramen narrowing that may affect the exiting C4 nerve roots At C4-5, there is mild spinal stenosis due to a disc bulge and a central disc protrusion. There is left greater than right neural foramen narrowing that may affect the left C5 nerve root At C5-6, there is spinal stenosis due to a disc bulge and a left paracentral disc osteophyte protrusion. There is bilateral neural foramen narrowing that may affect the exiting C6 nerve roots At C6-7, there is a disc bulge without spinal stenosis. There is right neural foramen narrowing that may affect the right C7 nerve root At C7-T1, there is a disc bulge without spinal stenosis. The neural foramen are patent There are new groundglass infiltrates in the visualized right upper lobe. The visualized soft tissues of the neck appear unremarkable. No foreign body is seen There is unchanged mastoid air cell opacification Impression: 1. Suspected partial resolution of soft tissue attenuation material in the anterior epidural space in the upper cervical spine that could represent improving inflammatory/infectious tissue. MRI with and without contrast could better evaluate 2. Spinal stenosis from C2-3 through C5-6 3. Bilateral C3-4, left C4-5, bilateral C5-6, and right C6-7 neural foramen narrowing. This may affect the exiting nerve roots 4. New right upper lobe groundglass infiltrate, concerning for pneumonia 5. Unchanged mastoid air cell opacification, concerning for inflammatory mastoiditis ACT 112: Positive. There are findings on this exam that require communication between the performing entity and the patient following Patient Test Result Information Act ([place] ACT 112) guidelines. Electronically signed by Tevin Mtz 11-02-2024 11:20 AM Cervical Spine MRI 11/03/24 10:22 HISTORY: Unable to move. Infection. TECHNIQUE: MRI of the cervical spine with and without IV contrast. 7 cc of Gadavist IV contrast was administered. COMPARISON: Cervical spine CT dated 11/02/2024. FINDINGS: The cerebellar tonsils do not extend below the foramen magnum. The soft tissues of the neck are unremarkable. Straightening of cervical curvature. No significant listhesis. The vertebral body heights are maintained without compression deformity. Signal intensity of the bone marrow is normal. Minimal fluid is present in the C3-4 intervertebral disc space with no associated endplate erosion or enhancement. Enhancing fluid or phlegmon in the anterior epidural space extending from C1-C2 inferiorly to the C3-4 disc space measuring up to 0.5 cm in thickness anteriorly on series 12 image 8. AtC2-3: Moderate degenerative disc disease. There is calcification of the posterior longitudinal ligament posterior to the C2 vertebral body. This results in severe central canal stenosis With complete effacement of the CSF space and compression of the cervical spinal cord. Mild T2 hyperintensity within the cord at this level may represent edema or myelomalacia. The neuroforamina are patent. At C3-4: Severe degenerative disc disease. Posterior disc osteophyteComplex results in severe central canal stenosis with complete effacement of the CSF space and severe cord compression. Mid sagittal AP diam of the canal measuring 3 mm. Increased T2 signal intensity is mild within the cord and may represent myelomalacia or cord edema. severe bilateral neural foraminal stenosis. At C4-5: Moderate degenerative disc disease. Posterior disc osteophyte complex mildly narrows the central canal. severe left neuroforaminal narrowing. Mild right neuroforaminal narrowing. At C5-6: Severe degenerative disc disease. Posterior disc osteophyte is asymmetric to the left and contributes to moderate central canal stenosis. Mid sagittal AP diam of the canal measuring 8 mm. Severe bilateral neuroforaminal stenosis.. At C6-7: moderate degenerative disc disease. Posterior disc osteophyte complex mildly narrows the central canal. Severe bilateral neural foraminal stenosis is right greater than left. At C7-T1: Mild degenerative changes. No significant canal or foraminal stenosis. IMPRESSION: * Severe central canal stenosis at C2-3 and C3-4 due to calcification of the posterior longitudinal ligament and posterior disc osteophyte complex. This results in complete effacement of the CSF space and severe cord compression. Mild increased T2 hyperintensity within the cord at these levels may be related to cord edema or myelomalacia. * Minimal T2 hyperintensity within the disc space at C3-4. No endplate erosions or enhancement enhancement to confirm discitis/osteomyelitis. Enhancing fluid and edema in the epidural space extending from the level of C1-2 inferiorly to the C3-4 disc space measuring up to 0.5 cm in thickness anteriorly, which could represent phlegmon or abscess. * Severe multilevel neural foraminal stenosis. * Multilevel degenerative changes are detailed above by level. Electronically signed by Claude Shell 11-03-2024 12:24 PM Chest X-Ray 11/05/24 04:08 EXAM: XR chest 1V portable CLINICAL HISTORY: Worsening SOB. TECHNIQUE: An X-ray image of the chest was obtained in the anteroposterior (AP) projection. COMPARISON: Compared to the prior X-ray dated 10/31/2024. FINDINGS: Pulmonary Parenchyma: The film is rotated. An atelectatic band is noted in the right lower lung zone. Distended, gas-filled bowel loops are elevating the left diaphragmatic copula. There is veiling of both costophrenic angles, more right, likely small effusion. Heart and Mediastinum: The heart size and shape are normal. Bilateral perihilar prominent bronchovascular markings with peribronchial cuffing are nonspecific findings; clinical correlation is advised. Bony Thorax: The bony thorax appears intact without fractures or deformities. Soft Tissues: The soft tissues overlying the chest wall are unremarkable. IMPRESSION: 1. Newly seen veiling of both costophrenic angles, more right, likely small effusion. 2. Bilateral perihilar prominent bronchovascular markings with peribronchial cuffing and accentuated lung vascular markings, likely inflammatory or congestion. Stable. Electronically signed by Cj Giraldo 11-05-2024 05:18 AM KUB X-Ray 11/05/24 04:20 EXAM: XR KUB/Abdomen 1 view CLINICAL HISTORY: CXR findings TECHNIQUE: X-ray images of the abdomen were obtained in the supine position. COMPARISON: No prior studies are available for comparison. FINDINGS: Gas Pattern: Moderate large bowel gaseous distention is present. Soft Tissues: The soft tissues of the abdomen appear normal, without evidence of masses or calcifications. The liver, spleen, and kidneys are of normal size and position. Marked degenerative changes are present in the lower spine. IMPRESSION: 1. Moderate large bowel gaseous distention is present and requires clinical assessment and CT if indicated. 2. No air is seen under the diaphragm, and there is no evidence of complete intestinal obstruction. Electronically signed by Cj Giraldo 11-05-2024 05:25 AM Abdomen/Pelvis CT 11/05/24 04:24 EXAM: CT abd pelvis IV con only CLINICAL HISTORY: distension TECHNIQUE: Contiguous axial images were obtained from the level of the diaphragm to the pubic symphysis with intravenous contrast. Coronal and sagittal reconstructions were also performed and indicated to increase the sensitivity for detecting clinically relevant pathology. If IV contrast material had not been administered, the likelihood of detecting abnormalities relevant to the patient's condition would have been substantially decreased. The CT scan was performed according to ALARA (as low as reasonably achievable). COMPARISON: None. FINDINGS: Mild bilateral pleural effusion with basal subsegmental collapse of both lower lobes is seen. The liver is normal in size and attenuation. A tiny cyst is noted in segment V. There is no intrahepatic or extrahepatic biliary ductal dilatation. The hepatic vasculature is patent. The gallbladder is present. The spleen, pancreas, and adrenal glands are unremarkable. The kidneys are normal in size and attenuation. There is no hydronephrosis or perinephric fat stranding. No renal calculi or renal masses are identified. Few subcentimeter sized renal cysts in bilateral kidney. The ureters are normal in caliber, and no ureteral calculi are seen. The bladder is normal in contour. Pelvic viscera are unremarkable. No focal or diffuse bowel wall thickening or evidence of bowel obstruction is identified. Appendix not clearly visualised. There is no imaging evidence of inflammation in right iliac fossa. The abdominal and pelvic vasculature is patent. No aggressive appearing osseous lesions are identified. The caecum is dilated (8-9 cm) and shows fecal distension. Rest of the large bowel shows normal diameter with mild fecal and gas distension. Mild pelvic ascites is seen. An enlarged prostate measuring about 52 x 55 mm is noted. Bilateral fat containing inguinal hernia. Severe degenerative changes involving the spine are present. Diffuse atherosclerotic calcification is noted involving the aorta and iliac arteries. IMPRESSION: Mild bilateral pleural effusion with basal subsegmental collapse of both lower lobes is seen. The caecum is dilated (8-9 cm) and shows fecal distension Mild pelvic ascites is seen. An enlarged prostate measuring about 52 x 55 mm is noted. Electronically signed by Wes Chou 11-05-2024 07:07 AM Chest CTA 11/05/24 04:24 EXAM: CT angio chest PE protocol CLINICAL HISTORY: PE TECHNIQUE: Contiguous axial images were obtained from the base of the neck through the upper abdomen following intravenous administration of iodinated contrast material. Angiographic images were processed, and 3D MIP images were acquired for interpretation. If IV contrast material had not been administered, the likelihood of detecting abnormalities relevant to the patient's condition would have been substantially decreased. Coronal and sagittal 3-D MIPs were likewise performed and indicated to increase the sensitivity of detecting diffuse clinically relevant pathology. CT scan was performed according to ALARA (as low as reasonably achievable). COMPARISON: None. FINDINGS: Mild bilateral pleural effusion with basal subsegmental collapse of both lower lobes is seen. Multiple atelectatic bands are noted involving bilateral lung bases. Adequate contrast bolus is present without evidence of pulmonary embolism. The central airways are patent. The heart, aorta, and pulmonary arteries are of normal size and configuration. Coronary artery and aortic atherosclerotic calcifications are present. No pericardial effusion is identified. The thyroid is unremarkable. No mediastinal, hilar, or axillary lymphadenopathy is noted. No suspicious lytic or sclerotic osseous lesions are identified. IMPRESSION: Mild bilateral pleural effusion with basal subsegmental collapse of both lower lobes is seen. Multiple atelectatic bands are noted involving bilateral lung bases. No pulmonary embolism. Electronically signed by Wes Chou 11-05-2024 06:18 AM Medications Administered Current Inpatient Medications Acetaminophen (Acetaminophen 325 Mg Tab) 650 mg PO Q4H PRN PRN Reason: Pain or fever Stop: 12/04/24 13:40 Last Admin: 11/04/24 15:08 Dose: 650 mg Aspirin (Aspirin 81 Mg Ectab) 81 mg PO QAM ESTEFANI Stop: 11/28/24 08:59 Last Admin: 11/05/24 10:16 Dose: Not Given Atorvastatin Calcium (Atorvastatin 20 Mg Tab) 20 mg PO HS ESTEFANI Stop: 11/27/24 20:59 Last Admin: 11/04/24 20:44 Dose: 20 mg Bisacodyl (Bisacodyl 10 Mg Supp) 10 mg NH DAILY PRN PRN Reason: Constipation Stop: 11/27/24 15:59 Cyanocobalamin (Cyanocobalamin (B-12) 500 Mcg Tablet) 1,000 mcg PO QAM ESTEFANI Stop: 11/28/24 08:59 Last Admin: 11/04/24 08:58 Dose: 1,000 mcg Cyclobenzaprine HCl (Cyclobenzaprine Hcl 5 Mg Tab) 5 mg PO Q8H PRN PRN Reason: NECK SPASMS Stop: 11/27/24 15:59 Last Admin: 11/03/24 14:01 Dose: 5 mg Heparin Sodium (Porcine) (Heparin Sod 5,000 Unit/0.5 Ml Vial) 5,000 units SQ Q8 ESTEFANI Stop: 11/27/24 21:59 Last Admin: 11/05/24 13:12 Dose: Not Given Hydralazine HCl (Hydralazine Hcl 20 Mg/Ml Vial) 10 mg IV Q8 PRN PRN Reason: sbp>185 or dbp>95 Stop: 11/30/24 18:00 Last Admin: 11/05/24 03:48 Dose: 10 mg Daptomycin 850 mg/ Syringe 17 mls @ 8.5 mls/min IV Q24H [facility]; Protocol Stop: 11/15/24 21:59 Last Admin: 11/04/24 20:45 Dose: 8.5 mls/min Ceftaroline Fosamil 600 mg/ (Sodium Chloride) 270 mls @ 270 mls/hr IV Q8H [facility]; Protocol Stop: 11/18/24 15:59 Last Infusion: 11/05/24 10:17 Dose: Infused Lactated Ringer's (Lr) 1,000 mls @ 80 mls/hr IV .[id number] [facility] Stop: 11/06/24 06:59 Last Infusion: 11/05/24 13:12 Dose: 80 mls/hr Insulin Aspart (Insulin Aspart Per Unit Charge) 0 units SC ACHS [facility] Stop: 11/27/24 17:14 Last Admin: 11/05/24 12:41 Dose: 2 units Insulin Glargine (Lantus Per Unit Charge) 5 units SC DAILY [facility] Stop: 12/03/24 08:59 Last Admin: 11/05/24 08:55 Dose: 5 units Lidocaine (Lidocaine 5% 1 Patch) 1 patch TD QAM [facility] Stop: 11/28/24 08:59 Last Admin: 11/05/24 08:45 Dose: 1 patch Magnesium Hydroxide (Magnesium Hydroxide Susp 30 Ml Udc) 30 ml PO DAILY PRN PRN Reason: Constipation Stop: 11/27/24 16:36 Metoprolol Tartrate (Metoprolol Tartrate 50 Mg Tab) 50 mg PO BID [facility] Stop: 12/02/24 08:59 Last Admin: 11/05/24 10:17 Dose: Not Given Miconazole Nitrate (Miconazole Nitrate 2% Cr 30 Gm Tube) 1 appln TOP BID [facility] Stop: 11/27/24 20:59 Last Admin: 11/05/24 10:17 Dose: Not Given Miscellaneous (Remove Lidoderm Patch) 1 each N/A DAILY@2100 [facility] Stop: 11/28/24 20:59 Last Admin: 11/04/24 20:45 Dose: 1 each Miscellaneous Information (Pharmacy Glycemic Mgmt Consult) 1 each N/A UD PRN; Protocol PRN Reason: Consult Stop: 11/27/24 16:09 Morphine Sulfate (Morphine Sulfate 4 Mg/Ml 1 Ml Carp\\Vial) 4 mg IV Q2H PRN PRN Reason: Severe Pain (Scale 7, 8, 9,10) Stop: 11/17/24 15:15 Last Admin: 11/05/24 07:49 Dose: 4 mg Ondansetron HCl (Ondansetron Inj 2 Mg/Ml 2 Ml Vial) 4 mg IV Q6H PRN PRN Reason: Nausea Stop: 11/27/24 16:01 Last Admin: 10/31/24 18:35 Dose: 4 mg Oxycodone HCl (Oxycodone Hcl Ir 5 Mg Tab (Immediate Release)) 5 mg PO Q6H PRN PRN Reason: Severe Pain (Scale 7, 8, 9,10) Stop: 11/11/24 15:59 Last Admin: 11/04/24 15:08 Dose: 5 mg Polyethylene Glycol (Polyethylene (Miralax) 17 Gm Pack) 17 gm PO DAILY [facility] Stop: 11/28/24 08:59 Last Admin: 11/05/24 10:17 Dose: Not Given Sertraline HCl (Sertraline Hcl 50 Mg Tablet) 50 mg PO BID [facility] Stop: 11/27/24 20:59 Last Admin: 11/05/24 10:17 Dose: Not Given Sodium Biphosphate/Sodium Phosphate (Sod Phosphate/Sod Biphosphate Enema 132 Ml Btl) 132 ml NH DAILY PRN PRN Reason: Constipation Stop: 11/27/24 15:59 Tamsulosin HCl (Tamsulosin Hcl 0.4 Mg Cap) 0.4 mg PO HS ESTEFANI Stop: 11/27/24 20:59 Last Admin: 11/04/24 20:44 Dose: 0.4 mg Thiamine HCl (Thiamine Hcl 100 Mg Tab) 100 mg PO BID ESTEFANI Stop: 11/27/24 20:59 Last Admin: 11/05/24 10:17 Dose: Not Given Tramadol HCl (Tramadol Hcl 50 Mg Tablet) 50 mg PO Q4H PRN PRN Reason: Moderate Pain (Scale 4, 5, 6) Stop: 11/27/24 15:59 Last Admin: 11/03/24 21:23 Dose: 50 mg PG Care Time/CCT Total # of Minutes Spent Total Time Spent with Patient: Total time spent is greater than 50% in coordination of care (as documented) at patient's floor/unit and/or counseling patient: [place]oding [place] [address] SUB INP/OBS CARE 3/50MIN Patient Type Established History Expanded Problem Focused Exam Expanded Problem Focused Medical Decision Making Moderate Complexity Diagnoses Neck pain M54.2 Acute alteration in mental status R41.82 Counseling regarding goals of care Z71.89 Palliative care by specialist Z51.5 Need for comfort care
[2024-11-05] MEDS ORDERED: ACETAMINOPHEN 325 MG TAB PO PRN (16:28)
[2024-11-05] MEDS ORDERED: ONDANSETRON INJ 2 MG/ML 2 ML VIAL IV PRN (16:28)
[2024-11-05] MEDS ORDERED: ONDANSETRON 4 MG OD TAB SL PRN (16:28)
[2024-11-05] MEDS ORDERED: ATROPINE SULFATE 1% OP SOLN 5 ML BTL SL PRN (16:28)
[2024-11-05] MEDS ORDERED: HYOSCYAMINE SULFATE 0.125 MG TAB SL PRN (16:28)
[2024-11-05] MEDS ORDERED: HALOPERIDOL ORAL SOLN 2 MG/ML PO PRN (16:28)
[2024-11-05] MEDS ORDERED: GLYCOPYRROLATE 0.2 MG/ML VIAL IV PRN (16:28)
[2024-11-05] MEDS ORDERED: MoRPHine SULFATE 4 MG/ML 1 ML CARP\\VIAL IV PRN (16:39)
[2024-11-05] MEDS: MoRPHine SULFATE 4 MG/ML 1 ML CARP\\VIAL IV PRN (16:55)
[2024-11-05] MEDS ORDERED: STAT IV Infusion **Titration per Protocol STA (18:46)
[2024-11-05] MEDS: MoRPHine SULF 100 MG/100 ML BAG IV SCH (19:29)
--- NOTE | 2024-11-06 00:49 | Death Pronouncement Note ---
Date of Service November 06, 2024 Pronouncement Note Admission Date Admission Date: October 28, 2024 Contributing Factors (1) Comfort measures only status: (2) MRSA bacteremia: (3) Peripheral arterial disease with history of revascularization: (4) Benign essential hypertension: Summary Additional details: I was called to pronounce the of Osmin Parkinson ( 1945) by nurse on 11/06/2024. Upon entering the room, patient was found to be in a terminal state. They were unresponsive to, and did not withdrawal from, verbal or tactile stimuli. On cardiopulmonary exam, they were found to be without detectable radial or carotid pulses, and without spontaneous heart tones or respirations on auscultation. Time of was pronounced by me on 11/06/2024 at 0026. Attending physician was notified was notified. Next of kin (son and ex-) were at bedside. Signed: Marie Perez DO Additional Data Attending physician: Indy Garland MD Resident Activity Tracking Resident Involvement: Resident Care Provided Care Provided: Adult Hospital Medicine
[2024-11-06 01:38] VITALS: PULSE 24
[2024-11-06] MEDS ORDERED: LANTUS PER UNIT CHARGE SC SCH (09:00)
--- NOTE | 2024-11-06 19:11 | Discharge Summary ---
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 #Comfort measures only-patient was not decisional due to encephalopathy from infection and opioids for pain control. Due to his declining status, and decision to not pursue surgical washout and decompression of the cervical spine which would involve transfer to tertiary care, patient was transitioned to comfort measures only on 11/05. This was after discussion with patient's son/decision maker along with the patient's ex- who is also a friend of his. 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 MRI c-spine 10/28 showing fluid and edema in prevertebral space and intermediate signal intensity material in epidural space at dens to C4-5, and spinal stenosis C3-6. CT cervical spine with contrast 11/02 with suspected partial resolution of material in the epidural space and upper cervical spine. Repeat MRI cervical spine 11/03 with severe central canal stenosis C2-4 with complete effacement of CSF space and severe cord compression with cord edema/myelomalacia, negative for discitis/OM, and with epidural enhancing fluid and edema C1-C4. Orthopedic spine surgery also reviewed the MRI from 11/03 and thought it was significantly worse from previous and recommended transfer to tertiary care for cervical spine epidural abscess drainage and decompression. MRI right femur suggestive of myositis and recommended repeat scan with contrast to rule out infective collection. Decubitus ulcers positive for ESBL E. coli but do not appear to be acutely infected. Transthoracic echo without valvular vegetation and CELIA not performed due to pursuing [employer] Repeat blood cultures persistently positive on 10/27, 10/28, 10/30, and 11/01. 11/04 cultures no growth to date Patient is encephalopathic secondary to ongoing infection but also could be the effect of opioids Decision made to pursue comfort measures only and to not go through with high risk cervical spine surgery for epidural abscess drainage as he would be high risk for surgery/anesthesia and patient's family did not think he would want to do this He was treated with IV ceftaroline and daptomycin and these were discontinued when he was transition to comfort measures only #PAD s/p recent right AKA/femoropopliteal bypass/HTN/HLD -Seen by vascular surgery and had geovany removed - All home medications stopped on [employer] #DM2 with neuropathy-no acute issues, most recent HgbA1c 7.3% in 07/2024 -All medications and BSG's stopped on [employer] #B12/folate/iron deficiency anemia-Hgb stable at 9-10.2, borderline microcytic, B12 folate and iron levels all borderline low last admission -Stop B12, folic acid and iron supplementation on [employer] #Depression- -Discontinue home sertraline on [employer] #BPH-currently has Raza catheter in place while not able to move due to cervical cord compression -Discontinue tamsulosin and continue Raza catheter care while on [employer] #Rash on upper extremities-apparently was present during last admission as well. His platelets are normal so do not suspect petechiae although it does appear this way. Could be due to bacteremia? - No further evaluation needed on [employer] Admission HPI Per Admitting Provider Pt is a 79 y/o male with pmh of PVD s/p recent right AKA 2nd to MRSA osteo of right foot, DM, HTN who presents with MRSA + blood cultures. Pt was seen in the ER yesterday with complaints of cervical back pain and fatigue.He had CT c-spine along with femur Xrays which were negative. Today his blood cultures returned + for MRSA and he was called back to the ER.Pt appears with increased somnolence and labs showing elevated WBC, lactate and procal. He was started on vancomycin and will be admitted for further work up of his MRSA bacteremia. Discharge Plan Discharge Items Patient Disposition: Other Date/Time: 11/06/24 00:26 Hospital Stay Data Consultations 10/28/24 14:56 ED Decision to Admit Stat 10/28/24 16:02 Consult Infectious Diseases Routine 10/30/24 15:00 Consult Orthopedic Spine Surgery Routine 11/01/24 10:07 Consult Vascular Surgery Routine 11/03/24 10:20 Consult Palliative Care Routine Procedures Performed Operation Date: 11/01/24 13:00 <No data on this case meets the specified criteria> Diagnostic Imagining Performed 10/28/24 16:11 MR femur RT wo con Routine MRI Cervical [MR cervical spine wo con] Urgent 10/30/24 11:19 CT neck [CT cervical spine w con] Urgent 10/31/24 07:25 CT femur RT w con Urgent 10/31/24 18:03 CT head/brain wo con Stat 11/02/24 10:09 CT cervical spine wo con Urgent 11/03/24 10:22 MRI Cervical [MR cervical spine wo/w con] Urgent 11/05/24 04:24 CT Abd and Pelvis [CT abd pelvis IV con only] Stat CT angio chest PE protocol Stat Total Time Total Time Spent Total Time Spent (In Minutes): 5 minutes Coding Level of Care Code None Diagnoses Comfort measures only status Z51.5 MRSA bacteremia R78.81; B95.62 Peripheral arterial disease with history of revascularization I73.9; Z98.890 Benign essential hypertension I10
== END 2024-11-06 01:38 | disposition expired | DRG 871 ==
LOC: ED 12:42 → SUATTDRO 16:02 → EDINP 16:02 → 2N 19:16 → 4W 10-31 20:08